=== PATIENT | female | born 1980 | race Caucasian/White ===

== ENCOUNTER → 2018-02-08 08:47 | Outpatient (CLI) | payer OTHER, SELFPAY ==
--- NOTE | 2018-02-08 09:06 | RAD_ITS ---
STUDY: X-RAY - LEFT KNEE REASON FOR EXAM: Female, 37 years old. [place] pop swelling pain TECHNIQUE: 4 view(s) of the knee. COMPARISON: None. FINDINGS: Normal visualized distal femur. Normal visualized proximal tibia and fibula. Normal proximal tibiofibular articulation. There is mild degenerative arthrosis of the medial femorotibial compartment. There is mild degenerative arthrosis of the lateral femorotibial compartment. There is mild degenerative arthrosis of the patellofemoral articulation. There could be a trace joint effusion. There is no visualized fracture. There is enthesopathic the at the patellar insertion of the quadriceps tendon. The soft tissue structures are unremarkable. RAD/Knee 4 or More Views IMPRESSION: Mild degenerative change. No visualized fracture. Cannot exclude trace effusion. Electronically Signed: Caity Felix MD at 15:58 EDT Tel , Service support ,
== END ==
LOC: LAB 08:52 → RAD 08:53
PROVIDERS: Family Provider Internal Medicine; PCP Internal Medicine; Visit Provider Internal Medicine
DX: M25.562 Pain in left knee (principal)
CPT/HCPCS: 73564

== ENCOUNTER 2018-03-28 16:30 | Outpatient (RCR) | payer OTHER, SELFPAY ==
--- NOTE | 2018-03-04 12:48 | HP.PTEVAL ---
Patient's Visit Information ILA CA is a 37 year old F referred to Physical Therapy by Rosalva Styles with a diagnosis of LEFT MEDIAL KNEE PAIN. Date of Evaluation: 02/28/18 Physical Therapist: Keri Mack - Visit Plan Frequency: 2-3x /Week Duration: 4-6 Weeks Plan: LEFT KNEE US, ROM, STRETCHING AND STRENGTHEING TO HELP MEET SET GOALS. - Subjective Subjective: Work/Leisure: [employer]. Disability: NO. Present symptoms: INSIDE OF LEFT KNEE. NO NUMBNESS OR TINGLING. IT POPS. Present since: MID JANUARY 2018. Pain Scale: WORST 5/10, LEAST 1/10. Currently: 10. Commenced as a result of: GETTING INTO CAR AND KNEE POPPED AND IT HAS BEEN SWOLLEN EVER SINCE. Symptoms at onset: SAME. Worse: BEING ON FEET MORE SINCE STARTED BACK TO WORK FEELING PRESSURE AND TENSION IN IT. PROLONGED SITTING. STEPS. POPPING IS RANDOM AND IT ISN'T POPPING MUCH IT WAS. THE SWELLING HAS NEVER GONE DOWN. GETTING DOWN ON KNEES. Better: ICE. Disturbed sleep: NO. Previous history/Previous treatment: UNREMARKABLE. Gait: NORMAL NOW. Accidents: NO. Unexplained weight loss: NO. Imaging: LEFT KNEE X-RAY SHOWING SOME INFLAMMATION AND MILD DEGENERATIVE ARTHRITIS. FINDINGS: Normal visualized distal femur. Normal visualized proximal tibia and. fibula. Normal proximal tibiofibular articulation. There is mild degenerative arthrosis of the medial femorotibial. compartment. There is mild degenerative arthrosis of the lateral. femorotibial compartment. There is mild degenerative arthrosis of the. patellofemoral articulation. There could be a trace joint effusion. There. is no visualized fracture. There is enthesopathic the at the patellar. insertion of the quadriceps tendon. The soft tissue structures are unremarkable. RAD/Knee 4 or More Views. IMPRESSION: Mild degenerative change. No visualized fracture. Cannot exclude trace. effusion. MRI HAS BEEN ORDERED. PMH: BLOOD CLOTTING DISORDER - ANTIPHOSPHOLIPID SYNDROME. OVER-ACTIVE THYROID, ACID REFLUX. ANXIETY. FATTY LIVER DZ. IBS - Objective Sitting/Standing Posture: NATE GENU VALGUS. Other Observations: INDEP GAIT INTO PT WITHOUT ANY ASSISTIVE DEVICES OR GROSS DEVIATIONS NOTED. MODERATE LEFT KNEE EDEMA COMPARED TO RIGHT. Motor deficit: NATE LE STRENGTH GROSSLY 5/5 WITH MMT'ING EXCEPT NATE HIPS 4/5 AND LEFT KNEE EXT 4-/5 AND FLEX 4-/5. Sensory deficit: DECREASED LIGHT TOUCH SENSATION OF LEFT ANTERIOR AND MEDIAL KNEE. ROM deficit: 0-122 DEG RIGHT KNEE AND 0-115 LEFT KNEE. Core strength: POOR. Palpation: LEFT MEDIAL KNEE TENDERNESS AND TENDERNESS OVER PATELLAR TENDON. - Goals Goal 1:: DECREASE C/O LEFT KNEE PAIN Goal Time Frame: 4-6 Weeks Goal 2:: DECREASE LEFT KNEE SWELLING Goal Time Frame: 4-6 Weeks Goal 3:: IMPROVE STANDING, WALKING, STAIR CLIMBING AND KNEE FLEX/SQUATTING FUNCTION Goal Time Frame: 4-6 Weeks Goal 4:: INDEP HEP Goal Time Frame: 4-6 Weeks - Rehabilitation Potential Rehabilitation Potential: Fair - Anticipated Interventions Patient/Client Instruction: Educate patient on: Condition, Plan of Care, Risk Factors, Benefits of Fitness Program For the Purpose of:: To improve self management Therapeutic Exercise to Include: Strength training, Flexibilty training, Passive ROM, Active ROM, Dynamic Lumbar Stabilization For the Purpose of:: To decrease pain, To increase ROM, To improve muscle performance and motor function, To increase tolerance to activity/condition/position, To improve ability of physical actions for home/community/work/leisure Cryotherapy (ice pack, ice massage): Yes Ultrasound (thermal/non thermal): Yes For the Purpose of:: To decrease pain, To decrease swelling/inflammation, To increase ROM, To improve nutrient delivery to tissue Thank you for the opportunity to evaluate your patient. For Medicare and Medicare HMO plans, please review the plan of care and approve it. It will need to be FAXED BACK to us at [phone] for Medicare purposes. Please let me know if there are questions or concerns regarding this plan of care. Physician Signature: Date:
--- NOTE | 2018-03-28 17:05 | HP.PTDCSUM_ITS ---
HP - PT D/C Summary It has been my pleasure to treat ILA CA under orders from Rosalva Styles , for the diagnosis of LEFT MEDIAL KNEE PAIN for a total of 12 visit(s). Discharge Date: Please see the following information for a summary of their discharge status. - Subjective Subjective: PATIENT REPORTS IT SEEMS LIKE SHE CAN DO MORE THINGS WITH LESS SQUEEZING AND PRESSURE IN HER KNEE BUT IT STILL POPS. SHE REPORTS IT USE TO FEEL MORE LIKE HER KNEE WASN'T FITTING IN PLACE WELL IT IS NOW BUT THE POPPING AND SWELLING CONTINUES. PATIENT REPORTS SHE HAS BEEN ABLE TO TOLERATE THE EX HERE IN PT AND AT HOME IT JUST HASN'T HELPED IT GET BETTER SHE HAD HOPED. - Pain medial L knee Pain Intensity (Out of 10): 2 - Overall Improvement % Improvement: 25 - Objective Objective/Function: PATIENT HAS HAD ONLY MINIMAL IMPROVEMENT IN PT WITH LEFT HIP STRENGTH IMPROVIING AND GETTING A FEW MORE DEGREES OF BEND IN HER KNEE BUT HER FUNCTION IS STILL SIGNIFICANTLY LIMITED. UPON EXAM TODAY PATIENT DEMO'S INDEP GAIT INTO PT WITHOUT ANY ASSISTIVE DEVICES OR GROSS DEVIATIONS NOTED. MILD LEFT KNEE EDEMA COMPARED TO RIGHT WITH INCREASED TISSUE TEMP OF LEFT MEDIAL KNEE COMPARED TO OTHER KNEE. Motor deficit: NATE LE STRENGTH GROSSLY 5/ 5 WITH MMT'ING EXCEPT LEFT KNEE EXT 4/5 AND FLEX 4-/5. Sensory deficit: DECREASED LIGHT TOUCH SENSATION OF LEFT ANTERIOR AND MEDIAL KNEE. ROM deficit: 0-122 DEG RIGHT KNEE AND 0-119 LEFT KNEE. Core strength: POOR. Palpation: LEFT MEDIAL KNEE TENDERNESS AND TENDERNESS OVER PATELLAR TENDON. NO SIGNIFICANT CHANGE IN LEFS SCORE WITH CHANGE FROMO 53 TO 55 - Goals Goal 1:: DECREASE C/O LEFT KNEE PAIN Goal Progress: Not Progressing Goal 2:: DECREASE LEFT KNEE SWELLING Goal Progress: Progressing Goal 3:: IMPROVE STANDING, WALKING, STAIR CLIMBING AND KNEE FLEX/SQUATTING FUNCTION Goal Progress: Not Progressing Goal 4:: INDEP HEP Goal Progress: Progressing - Plan Plan: D/C DUE TO LACK OF MORE PROGRESS WITH PT AT THIS TIME. - D/C Information If there are questions or concerns regarding this patient's physical therapy, please feel free to call me at [phone]. Thank you for the referral of this patient. Sincerely, Keri Mack
== END 2018-03-28 19:00 | disposition home or self-care (01) ==
LOC: PT 16:30
PROVIDERS: Family Provider Internal Medicine; PCP Internal Medicine; Visit Provider Internal Medicine
DX: M25.562 Pain in left knee (principal)
CPT/HCPCS: 97035; 97110; 97162; 97164

== ENCOUNTER → 2018-04-03 16:24 | Outpatient (CLI) | payer OTHER, SELFPAY ==
--- NOTE | 2018-04-03 16:39 | MRI_ITS ---
STUDY: MRI LEFT KNEE REASON FOR EXAM: Medial knee pain, popping, swelling, no specific injury. TECHNIQUE: Standardized fat and water weighted pulse sequences were obtained in all 3 orthogonal planes. COMPARISON: Radiographs 02/08/2018. FINDINGS: Normal medial meniscus. Normal hyaline cartilage of the medial femorotibial compartment. Normal medial femoral condyle and tibial plateau. Normal medial collateral ligamentous complex (MCL). Normal distal semimembranosus, gracilis and semitendinosus tendons. Normal lateral meniscus. Normal hyaline cartilage of the lateral femorotibial compartment. Normal lateral femoral condyle and tibial plateau. Normal proximal tibiofibular articulation. Normal lateral collateral (fibular) ligament. Normal popliteus tendon. Normal biceps femoris tendon. Normal anterior cruciate ligament (ACL). Normal posterior cruciate ligament (PCL). Normal congruent patellofemoral articulation. There is low-grade chondromalacia of the lateral patellar facet (T2 axial image 10). Normal medial and lateral patellar retinaculum. Normal quadriceps tendon. Normal patellar tendon. Normal Hoffa's fat pad. There is a very small joint effusion. There is mild edema in the anterior subcutis adipose space. There is a small enchondroma in the distal femoral metaphysis (T2 sagittal image 10) measuring 0.5 cm in length. MRI/Lower Ext Joint Only (Routine) IMPRESSION: Low-grade chondromalacia patellae. Small joint effusion. Small enchondroma in the distal femur. No demonstrated meniscal or ligamentous injury. Electronically Signed: Laurent Amos MD at 11:33 EDT Tel , Service support ,
== END ==
PROVIDERS: Family Provider Internal Medicine; PCP Internal Medicine; Referring Provider Internal Medicine; Visit Provider Internal Medicine
DX: M25.562 Pain in left knee (principal)
CPT/HCPCS: 73721

== ENCOUNTER → 2018-04-05 09:31 | Outpatient (CLI) | payer OTHER, SELFPAY ==
[2018-04-05 10:07] LABS: Mean Corp Hgb Conc 34.1 g/gl (32-36); Mean Corpuscular Hgb 29.7 pg (27.0-32.0); Platelet Count 247 K/mm3 (150-450); RBC Distribution Width CV 12.8 % (11.6-14.6); RBC Distribution Width SD 39.9 fl (35.1-43.9); Red Blood Count 4.71 M/mm3 (4.2-5.4); White Blood Count 10.1 K/mm3 (4.4-11.0)
[2018-04-05 10:08] LABS: Scan Indicated on CBC? Y/N NO
[2018-04-05 10:42] LABS: ALB/GLOB Ratio 0.8 RATIO (0.9-2.4); AST(SGOT) 23 U/L (15-37); Alanine Aminotransfer ALT/SGPT 40 U/L (13-56); Albumin, Serum 3.3 g/dL (3.2-5.0); Alkaline Phosphatase 85 U/L (45-117); Anion Gap 10 (5-15); BUN 12 mg/dL (7-18); BUN/Creat Ratio 13.7 RATIO (10-20); Calcium,Total 8.9 mg/dL (8.5-10.1); Chloride 103 mmol/L (98-107); Creatinine, Serum 0.87 mg/dL (0.55-1.02); EST Glomerular Filtration Rate 77 mL/min (>60); Est Glom Filt Rate - Afr Amer 93 mL/min (>60); Globulin 3.9 g/dL (2.2-4.2); Glucose 96 mg/dL (74-106); Potassium 4.2 mmol/L (3.5-5.1); Protein, Total 7.2 g/dL (6.4-8.2); Sodium Level 140 mmol/L (136-145); T4 Free Direct 1.04 ng/dL (0.76-1.46); Thyroid Stim Hormone (TSH) 2.11 uIU/mL (0.358-3.74)
[2018-04-05 12:56] LABS: Vitamin D,25 Hydroxy 30.2 ng/mL (29.95-100.01)
[2018-04-08 20:07] LABS: Beef <0.10 kU/L (Class 0); Corn <0.10 kU/L (Class 0); Egg, Whole <0.10 kU/L (Class 0); Milk (Cow) <0.10 kU/L (Class 0); Peanut <0.10 kU/L (Class 0); Pork <0.10 kU/L (Class 0); Soybean <0.10 kU/L (Class 0); Wheat <0.10 kU/L (Class 0)
[2018-04-09 11:55] LABS: Chocolate <0.10 kU/L (Class 0)
== END ==
PROVIDERS: Family Provider Internal Medicine; PCP Internal Medicine; Referring Provider Internal Medicine; Visit Provider Internal Medicine
DX: R76.8 Other specified abnormal immunological findings in serum (principal); E55.9 Vitamin D deficiency, unspecified; R94.6 Abnormal results of thyroid function studies; Z91.018 Allergy to other foods
CPT/HCPCS: 36415; 80053; 82306; 84439; 84443; 85027; 86003; 86005

== ENCOUNTER 2018-06-20 05:35 | Day surgery (SDC) | payer OTHER, SELFPAY ==
[2018-06-20 06:11] VITALS: BP 151/98; PULSE 83; RESP 16; TEMP 36.7; O2SAT 97; BMI 50.1
[2018-06-20 06:20] LABS: Internal QC Validated? YES +Cl - CLEAR BKGD; Pregnancy, Urine Negative Negative
[2018-06-20] MEDS: Cefazolin 2 GM in 0.9% Normal Saline 100 ML IV (07:15)
--- NOTE | 2018-06-20 07:30 | PCM.DC.ORTHO ---
Discharge Diet: No Restrictions - wbat left leg, remove dressings in 4 days and apply bandaids to incision sites, may get incision wet at that time, ankle pumps, ice, elevate toes above nose, start lovenox tonight, call with pain, numbness, tingling, calf pain or other concerns Discharge Activity: May Not Drive May shower in (days): 1 Ice area for (Minutes): 20 - Every hour while awake. Weight Bearing Status: Weight bearing as tolerated Keep extremity elevated above heart level: Operative Extremity Call your doctor if your incision/area has: Continuous Slow Oozing, Sudden Increased Bleeding, Increased Pain/ Swelling, Increased Redness, Foul Smelling Discharge Call your doctor if you observe: Fever of 101 or Higher, Coldness, Increased Pain, Numbness or Tingling, Change in Color, Calf discomfort Allergies/Adverse Reactions: Allergies amoxicillin Allergy (Verified 05/21/18 13:35) Rash tobramycin Allergy (Verified 05/21/18 13:35) Other chlorhexidine Adverse Reaction (Verified 06/20/18 06:28) Rash Medications to take at Discharge Cholecalciferol (VIT D3) [Vitamin D] 2,000 unit PO DAILY 02/01/15 Sertraline HCl [Zoloft] 100 mg PO DAILY 02/01/15 Spironolactone [Aldactone] 200 mg PO DAILY 02/01/15 proMETHazine tablet [Phenergan] 25 mg PO Q6H PRN PRN #10 tablet 02/01/15 Aspirin E.C. [Ecotrin] 81 mg PO DAILY@0800 02/02/15 Hydrocodone Bitart/Apap 5-325 [[place] 5/325] 1 - 2 tablet PO Q4H PRN PRN #12 tablet 11/17/15 Ondansetron [Zofran Odt] 4 mg PO Q8H PRN PRN #10 tablet 11/17/15 enoxaparin 40 mg/0.4 mL subcutaneous syringe 40 mg SC DAILY PRN #4 ml 05/13/18 Hyoscyamine [Levsinex] 0.375 mg PO Q12 PRN 05/21/18 Inulin [Fiber Gummies] 4 gm PO DAILY 05/21/18 L.acidoph,Paracasei, B.lactis [Probiotic] 1 each PO DAILY 05/21/18 Norgestimate-Ethinyl Estradiol [Previfem Tablet] 1 each PO DAILY 05/21/18 Ranitidine [Zantac] 150 mg PO BID 05/21/18 Hydrocodone Bitart/Apap 5-325 [[place] 5MG-325MG] 1 - 2 tablet PO Q6H PRN PRN 5 Days #40 tablet 06/20/18 The following prescriptions were given: Hydrocodone Bitart/Apap 5-325 [[place] 5MG-325MG] 1 - 2 tablet PO Q6H PRN PRN 5 Days #40 tablet PRN Reason: Pain Primary Care Physician: Rosalva Styles MD [Primary Care Provider] - Test Results: Test results from this visit will be discussed in further detail at your follow-up appointment, if applicable. Please Follow Up With: Ofe Jay, DO - [phone]
--- NOTE | 2018-06-20 07:31 | OP.PCM_ITS ---
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 She failed conservative treatment MRI of questionable for lateral meniscus tear possible medial meniscus tear as well and some thinning of her cartilage. Due to the instability and locking discussed treatment options with patient. Patient like to proceed with left knee arthroscopy. Risks benefits and alternatives surgery discussed with patient. Risks including but not limited to blood loss, blood clot, infection, neurovascular injury, failure procedure, loss of life and loss of limb. Patient is aware would like to proceed with left knee arthroscopy repair is indicated. These of the patient also has antiphospholipid antibody she is a higher risk for blood clots this was discussed in detail with family and PCP patient will start Lovenox this evening. Operative note Patient seen and examined preoperative holding area. Left knee was marked. Patient is brought to the operating room placed supine on the operating table. Sign, anesthesia, antibiotics were administered. Left knee was prepped and [place] ped in usual sterile fashion with tourniquet on her upper thigh. All bony prominences well-padded SCDs placed on her contralateral limb. We marked out our bony landmarks for anterior lateral anterior and anterior medial portal placement. The left leg was then elevated exsanguinated tourniquet was raised her pressure of 300 torr based on preoperative blood pressure. Timeout was performed. We then created her anterior lateral portal with an 11 blade. We began our diagnostic arthroscopy. There is grade 2 fibrillated changes on the inferior pole of her patella throughout. Her trochlea was intact. We then moved to the medial femoral medial joint line. Created an anterior medial portal under direct visualization. We able to debride back some of the synovium with a shaver for better visualization. We inserted a probe her medial meniscus was intact and stable stable to probing. She had some grade 2 changes of her medial femoral condyle on the more lateral aspect that was being abraded by her thickened medial plica that was resected. This is actually was causing some fibrillated some erosion of her nonweightbearing aspect for medial femoral condyle. ACL PCL were present within the notch. We then moved to the lateral joint line there is little bit of synovitis in the anterior lateral recess that was also resected back for better better visualization. She had a posterior horn lateral meniscus tear that was gently debrided back to a stable rim. We and she also had some grade 3 changes of her lateral tibial plateau and some unstable cartilage pieces that were debrided back gently with a shaver. We then reinserted a probe to ensure that she had good stable lateral meniscus remaining which she did have. We then gently debrided the inferior pole of the patella as she had some quite thickened and loose cartilage pieces at the inferior pole especially more laterally. The knee was then irrigated with copious amounts of sterile saline. The portals were closed with interrupted 4-0 nylon stitches sterile dressings were applied the tourniquet was deflated for total working time of 22 minutes. Patient tolerated procedure well there are no complication transferred recovery room in stable condition. Postoperative note Weight-bear as tolerated left leg Patient is to be given to family in 2 weeks at postop visit Remove dressings in 4 days apply Band-Aids Start Lovenox tonight This note was generated with [employer] dictation software. It may contain incorrect words, spelling, and punctuation that were not noted in checking the note before signing.
[2018-06-20] MEDS: Mupirocin Ointment 22gm Tube 1 APPLIC (08:00)
[2018-06-20] MEDS: Bupiv/Epi 0.5% Mpf 30 ML Vial (08:02)
[2018-06-20 08:21] VITALS: BP 151/98; BP 162/96; PULSE 87; RESP 16; TEMP 35.9; O2SAT 93
[2018-06-20 08:30] VITALS: BP 151/98; BP 153/90; PULSE 81; RESP 16; O2SAT 95
[2018-06-20 08:45] VITALS: BP 151/98; BP 168/91; PULSE 81; RESP 16; TEMP 36.1; O2SAT 98
[2018-06-20 09:55] VITALS: BP 144/93; BP 151/98; PULSE 83; RESP 16; TEMP 36.8; O2SAT 96
--- OUTSIDE RECORDS SUMMARY | 2018-08-05 17:24 | XMS RPT_ITS | Continuity of Care Document ---
:1980 Author Organization [facility] Address [facility] [address] Phone Care Team Providers Name Role Phone Jensen HARGROVE, Michelle Lenz Unavailable Tavia HARGROVE, Ravinder Unavailable Rico HARGROVE, Sancho Mcdaniel Unavailable Jasmyne Martin Unavailable Ofe Jay Unavailable Yohan HARGROVE, Vi Lenz Unavailable Stefany HARGROVE, Davide Stone Unavailable Dr. Murali Mondragon Unavailable PHILLIP Leigh Unavailable Unavailable Kristine Langley Unavailable Unavailable Unavailable Unavailable Problems Name Dates Details Abnormal lung function test (R94.2, 794.2) Comments: mild obstruction on spirometry and had cold ? allergies no signs and symptoms otherwise long going. some wheezing laugh Status: Active Abnormal thyroid blood test (R94.6, 794.5) Comments: TPO atb postiive. tsh good rightnow and watching labs. Status: Active Acid reflux (K21.9, 530.81) Comments: EGDF 5-16. some inflammation. no nsaids. talk about side effects of PPI. use zantac 75 bid help notice flare daily. can increase Status: Active Allergic to food (Renamed from Food allergy) (Z91.018, V15.05) Status: Active Alopecia (L65.9, 704.00) Comments: androgenic alopeciaSees specialist Dr Xiomy Amaya [facility], last saw 2009, labs done ferritin, zinc, dheas, testosterone, estradiol prolactin progesterone, testosterone little up and look like try avodart Status: Active Amenorrhea (N91.2, 626.0) Comments: on ocp more regular, not have trouble getting . random every 3 mobths not have one. Status: Active KWAN positive (R76.8, 795.79) Comments: all [facility] connect reports rheum nothing. saw vascular surgeon. felt antiphoslipid syndrome, had severe preeclampsia with HELP syndrome, has pos KWAN, elevated CRP and Sed rate. ANCA's neg.Today with headac he extreme fatigue ache pain low grade fever. Dr. anderson 2-16 and repeat ramp manager negative and labs negative. rightn ow no new ss. Status: Active Anal discharge (R19.8, 787.99) Comments: pt not sure where come from on underwear in both areas. ? pru. anui. talk about treatment with tucks and prepH metamucil to have complete movement and irrigate after each BM. handout given Status: Active Antiphospholipid syndrome (D68.61, 289.81) Comments: basby aspirin daily and willnotify any Dr. if have surgery reveiwed with patient [facility] connect note. saw Dr. anderson and negative work for anything other than this. Status: Active Anxiety (F41.9, 300.00) Comments: side effects to viibryd, celexa not work. zoloft helping. doing good now on zoloft. see Dr. martin every so often. mother new kidney, sonstress with his behavior issues. she works [place] the [place] is at and hard for her. she cannot get away. work with aysha and redirecting thought when worry about health. finding more time alone. consider klonopin taking son to do things told to make regular thing. date nightafter had son with severe preeclampsia set off fear 2010. Status: Active BMI 45.0-49.9, adult (Z68.42, V85.42) Comments: we talked about this summer better not have behavioral issue with son at school. will walk with son on scooter. 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 PT help only 25 % nsaids bother stomach. to [facility] Status: Active Current nonsmoker (Renamed from Current non-smoker) (Z78.9, V49.89) Status: Active Deliveries (Parity) Comments: 1 Status: Active Encounter for general adult medical examination with abnormal findings (Z00.01, V70.0) Comments: 06/03/17 [facility] exam, last pap 05/2017 good, colonscopy 2016, never had mammogram, already had flu vaccine dnetist 6-17 go every 6months. Status: Active Family history of breast cancer (Z80.3, V16.3) Comments: maternal aunt 50 and same side pancreatic cancer in another aunt. in her 40's would consider genetic counseling and testing. 3D mammo by 40 Status: Active Family history of heart disease (Z82.49, V17.49) Comments: father 50's not smoker but secand hand smoke. optimize her risk factors Status: Active Fatigue (R53.83, 780.79) Comments: see above seeing goske. same to worse because going into school. sleep restless. 5 yo son waken at night few times a night. will see how do when get back on track exercise and diet. Status: Active Fatty liver (K76.0, 571.8) Comments: seen on CT scan and seeing Dr. Mayer hga1c and 24 hour urine cortisol okay. liver tests good. liver specialist 03-26 Dr. bal ? started with the HELLP did US elast. and show 3-4 will have liver bi opsy negative. no cirrhosis. recommend porbiotic with new studies on gut-liver bacteria link. on a good one through [facility], on probiotics lfts good Status: Active H/O leukocytosis (Z86.2, V12.3) Comments: estr good work up being down. ? bile duct issue because with abd and GB but liver normal willrec goes down after IV fliuds related to abd pain episodes Status: Active HELLP syndrome, antepartum (O14.20, 642.53) Comments: [address] Josh Lemus in vasuclar at [facility] and Dr. Jessica jama at [facility] severe preeclampsia Status: Active Hives (L50.9, 708.9) Status: Active Hyperlipidemia, unspecified hyperlipidemia type (E78.5, 272.4) Comments: better now on more whole grains and nuts Status: Active Irritable bowel syndrome with diarrhea (K58.0, 564.1) Comments: increase zoloft and increase fiber. no sugar alcohols. not link to foods. not sure mild. link to anxiety still 2-3 times a day. need to get down because teachera nd cannot leave class room. check fo od allergies will get labs. use levisin as need. if not get better wtih increae fiber increase zoloft and levsin did help some. school started...stress up. think related not able to walk with knee to decompress. Status: Active Left medial knee pain (M25.562, 719.46) Comments: ? strain MCL or medical meniscus. no side strick injury. will rest ice elevated leg will get knne sleeves. if not better in 2 weeks then xray, injection consider PT if stillinstabiity and poppig consider MRI xray some tendon issue on the top of patella. Status: Active Nonsmoker (Z78.9, V49.89) Status: Active Obesity, unspecified (E66.9, 278.00) Comments: ws eating well before sick 12- 16 stress wtih son's behavior. stress eating. willstart withthe exercise for stress release then diet to follow.n when walk not feel need at much to [facility]. talk about l oggong but OCd went crazy. doing more whole grains. Status: Active OCD (obsessive compulsive disorder) (F42.9, 300.3) Comments: stable will not check BP because then obsess. aysha has he list things want to accomplish each day Status: Active Plantar fasciitis, bilateral (M72.2, 728.71) Status: Active Pregnancies () Comments: 1 Status: Active Proteinuria (R80.9, 791.0) Comments: mother with Wegoners on dialysis right now good Status: Active Rash (R21, 782.1) Comments: look like ringworm in new area. diflucan and cream work on old area. she is not treating dog too. Status: Active Restless sleeper (G47.9, 780.50) Comments: went over sleep hygiene talk about sleep study. son with ADD and up in night for log periods. not able to use TCA to sedate. need to work to get son asleep. Status: Active Sinusitis, bacterial (J32.9, 473.9) Status: Active Stress reaction (F43.0, 308.9) Comments: stable son getting some test and ADD and sleep issue so both up at night. seeing Abigail martin. on zoloft. will talk to her about increasing dose ? should do she worry about getting too f atigued. will do yoga and exercises. Status: Active Tinea corporis (B35.4, 110.5) Status: Active Vaginal discharge (N89.8, 623.5) Comments: looks normal willsend testing. Status: Active Vitamin D deficiency, unspecified (E55.9, 268.9) Comments: goo drepamelaly on 2000 units a day Status: Active Well woman exam (Renamed from Encounter for well woman exam) (Z01.419, V72.31) Comments: abnormal pap in 2008 did biopsy and repeat pap negative and cleared up. Status: Active Medications Name Dates Details Aldactone 100 MG Oral Tablet 2 Tablet qd for 0 days Quantity: 180 {Tablet} Refills: 3 Ordered:16-Oct-2017 Fast DO, Norah A Start : 16-Oct-2017 Active Aldactone 100 MG Oral Tablet 2 Tablet qd for 0 days Quantity: 20 {Tablet} Refills: 0 Ordered:16-Oct-2017 Fast DO, Norah A Start : 16-Oct-2017 Active Comments:enogh to last until mail order arrives ASPIRIN, 81MG (Oral Tablet) 1 qd (81 MG) Active Bentyl 10 MG Oral Capsule 1 (one) Capsule Capsule tid prn for 0 days Quantity: 20 {Capsule} Refills: 0 Ordered:23-Feb-2016 Jensen HARGROVE, Michelle Medina MD, Michelle Lenz Start : 23-Feb-2016 Active Comments:twenty Creon 44500 UNIT Oral Capsule Delayed Release Particles 1 (one) Unit 2 with meals and 1 with snacks for 0 days Quantity: 30 {Capsule} Refills: 0 Ordered:11-Apr-2018 Michelle Reaves MD, MD, Dana M Start : 11-Apr-2018 Active Levbid 0.375 MG Oral Tablet Extended Release 12 Hour 1 (one) Tablet bid for 0 days Quantity: 60 {Tablet} Refills: 3 Ordered:11-Apr-2018 Michelle Reaves MD, MD, Dana M Start : 11-Apr-2018 Active Levsin/SL 0.125 MG Sublingual Tablet Sublingual 1 (one) Tablet every 6 hours prn diarrhea IBS for 0 days Quantity: 30 {Tablet} Refills: 1 Ordered:11-Apr-2018 Michelle Reaves MD, MD, Dana M Start : 11-Apr-2018 Active Lotrisone 1-0.05 % External Cream 1 (one) Application Application bid to affected areas for 0 days Quantity: 1 {Tube} Refills: 0 Ordered:24-Jan-2018 PHILLIP Leigh Start : 17-Dec-2017 Active Previfem 0.25-35 MG-MCG Oral Tablet 1 Tablet qd for 0 days Quantity: 3 {Package} Refills: 3 Ordered:31-Mar-2018 Michelle Reaves MD, MD, Dana M Start : 31-Mar-2018 Active Probiotic 250 MG Oral Capsule (250 MG) Active VITAMIN D3, 1000UNIT (Oral Capsule) 2 (two) Capsule qd for 0 days Quantity: 60 {Capsule} Refills: 0 Ordered:01-Mar-2014 Michelle Reaves MD, MD, Dana M Start : 01-Mar-2014 Active Zantac 150 MG Oral Tablet 1 (one) Tablet bid for 0 days Quantity: 180 {Tablet} Refills: 3 Ordered:26-Jul-2017 Michelle Reaves MD, MD, Dana M Start : 26-Jul-2017 Active Zoloft 100 MG Oral Tablet 1 (one) Tablet qd for 0 days Quantity: 90 {Tablet} Refills: 3 Ordered:24-Jan-2018 Michelle Reaves MD, MD, Dana M Start : 24-Jan-2018 Active Ativan 0.5 MG Oral Tablet 1 Tablet q6h prn for 0 days Quantity: 20 {Tablet} Refills: 0 Ordered:28-Jun-2016 PHILLIP Leigh Start : 25-Jun-2013 End : 28-Jun-2016 Inactive Comments:twenty AUGMENTIN, 875-125MG (Oral Tablet) 1 Tablet BID for 0 days Quantity: 20 {Tablet} Refills: 0 Ordered:29-Nov-2010 Indu Mai LPN Start : 17-Aug-2010 End : 29-Nov-2010 Inactive MASHA, 0.35MG (Oral Tablet) 1 Tablet qd for 30 days Refills: 0 Ordered:30-Apr-2011 PHILLIP Leigh Start : 06-Dec-2010 End : 30-Apr-2011 Inactive Comments:Dr Ysabel NAYAK (Oral Tablet) 1 qd for 0 days Refills: 0 Ordered:17-Aug-2010 Indu Mai LPN End : 17-Aug-2010 Inactive Cipro 500 MG Oral Tablet 1 (one) Tablet bid for 7 days Quantity: 14 {Tablet} Refills: 0 Ordered:26-Jul-2017 Michelle Reaves MD, MD, Michelle Lenz Start : 05-Jul-2017 End : 12-Jul-2017 Inactive Comments:ordered by Dr. Jarrell in ER CLARITHROMYCIN, 500MG (Oral Tablet) 1 (one) Tablet bid for 0 days Quantity: 14 {Tablet} Refills: 0 Ordered:07-Jun-2014 PHILLIP Leigh Start : 31-Mar-2014 End : 07-Jun-2014 Inactive Cleocin 300 MG Oral Capsule 1 (one) Capsule QID for 7 days Quantity: 28 {Capsule} Refills: 0 Ordered:26-Jul-2017 Jensen HARGROVE, Michelle Medina MD, Michelle Lenz Start : 05-Jul-2017 End : 12-Jul-2017 Inactive Comments:prescribed by Dr. Pro in ER Clotrimazole 10 MG Mouth/Throat Lozenge 1 (one) Lozenge 5 x daily for 10 days Quantity: 50 {Lozenge} Refills: 0 Ordered:18-Jun-2016 PHILLIP Leigh Start : 11-Jun-2016 End : 18-Jun-2016 Inactive CLOTRIMAZOLE, 10MG (Mouth/Throat Lisa) 1 (one) Lisa Lisa 5x daily for 10 days Quantity: 50 {Lisa} Refills: 0 Ordered:31-Aug-2015 Sandra Murdock LPN Start : 31-Aug-2015 End : 10-Sep-2015 Inactive [facility] Omeprazole 20.6 (20 Base) MG Oral Capsule Delayed Release 1 (one) Capsule DR Capsule DR qd for 0 days Quantity: 30 {Capsule} Refills: 3 Ordered:05-Apr-2016 PHILLIP Leigh Start : 27-Jan-2016 End : 05-Apr-2016 Inactive Diflucan 150 MG Oral Tablet 1 (one) Tablet Tablet in am for 2 day for 0 days Quantity: 2 {Tablet} Refills: 0 Ordered:18-Jun-2016 PHILLIP Leigh Start : 08-Jun-2016 End : 18-Jun-2016 Inactive Diflucan 200 MG Oral Tablet 1 (one) Tablet once PO then repeat in one week for 0 days Quantity: 2 {Tablet} Refills: 0 Ordered:07-Feb-2018 PHILLIP Leigh Start : 24-Jan-2018 End : 07-Feb-2018 Inactive ERGOCALCIFEROL, 54415DSDS (Oral Capsule) 1 Capsule twice weekly for 0 days Quantity: 24 {Capsule} Refills: 0 Ordered:04-Jul-2011 Long Kathy MIRANDA Start : 19-Mar-2011 End : 04-Jul-2011 Inactive FLUCONAZOLE, 150MG (Oral Tablet) 1 (one) Tablet qd for 0 days Quantity: 10 {Tablet} Refills: 0 Ordered:07-Jun-2014 PHILLIP Leigh Start : 31-Mar-2014 End : 07-Jun-2014 Inactive MARGARET, 0.35MG (Oral Tablet) 1 qd as directed (0.35 MG) Inactive Hydrocodone-Acetaminophen 5-325 MG Oral Tablet 1 (one) Tablet Tablet q 6 hours prn for 0 days Quantity: 30 {Tablet} Refills: 0 Ordered:23-Feb-2016 PHILLIP Leigh Start : 18-Nov-2015 End : 23-Feb-2016 Inactive Ketoconazole 2 % External Cream 1 (one) Cream bid for 0 days Quantity: 1 {Each} Refills: 0 Ordered:08-Jun-2016 PHILLIP Leigh Start : 04-Jun-2016 End : 08-Jun-2016 Inactive Levaquin 500 MG Oral Tablet 1 (one) Tablet Tablet daily for 10 days Quantity: 10 {Tablet} Refills: 0 Ordered:16-Nov-2016 Jensen HARGROVE, Michelle Medina MD, Michelle Lenz Start : 16-Nov-2016 End : 26-Nov-2016 Inactive Lidocaine Viscous 2 % Mouth/Throat Solution uad Solution 10 ml q 3 hours swish and spit prn for 0 days Quantity: 100 {Milliliter} Refills: 0 Ordered:08-Jun-2016 PHILLIP Leigh Start : 05-Jun-2016 End : 08-Jun-2016 Inactive NEXIUM, 40MG (Oral Capsule Delayed Release) [address] Daily for 0 days Quantity: 30 {Capsule_DR} Refills: 0 Ordered:30-Apr-2011 PHILLIP Leigh Start : 02-Feb-2011 End : 30-Apr-2011 Inactive Nystatin 757612 UNIT/GM External Powder 1 (one) Powder Powder bid to affected skin for 0 days Quantity: 1 {Bottle} Refills: 1 Ordered:08-Jun-2016 PHILLIP Leigh Start : 29-May-2016 End : 08-Jun-2016 Inactive OCELLA, 3-0.03MG (Oral Tablet) 1 (one) Tablet qd for 0 days Quantity: 30 {Tablet} Refills: 0 Ordered:11-Sep-2011 PHILLIP Leigh Start : 27-Aug-2011 End : 11-Sep-2011 Inactive OMEPRAZOLE, 20MG (Oral Tablet Delayed Release) [address] daily for 0 days Quantity: 30 {Tablet_DR} Refills: 0 Ordered:15-Oct-2011 PHILLIP Leigh Start : 11-Sep-2011 End : 15-Oct-2011 Inactive Ondansetron HCl 4 MG Oral Tablet 1 (one) Tablet Tablet q 6-8 hours prn for 0 days Quantity: 20 {Tablet} Refills: 0 Ordered:23-Feb-2016 PHILLIP Leigh Start : 18-Nov-2015 End : 23-Feb-2016 Inactive PrednisoLONE Sodium Phosphate 15 MG/5ML Oral Solution 1 (one) Solution 10 ml swish and spit every 2 hours prn for 0 days Quantity: 100 {Milliliter} Refills: 0 Ordered:08-Jun-2016 PHILLIP Leigh Start : 05-Jun-2016 End : 08-Jun-2016 Inactive Comments:mix with 1/2 and 1/2 with lidocaine PredniSONE 10 MG Oral Tablet 3 (three) Tablet pills for 3 days 2 pills for 3 days then 1 pill for 3 days for 0 days Quantity: 18 {Tablet} Refills: 0 Ordered:09-May-2017 PHILLIP Leigh Start : 19-Feb-2017 End : 09-May-2017 Inactive Comments:take with food apurva PREDNISONE, 20MG (Oral Tablet) 1 (one) Tablet 1 daily for 5 daysthen 1/2 for 5 days for 10 days Quantity: 10 {Tablet} Refills: 0 Ordered:31-May-2015 Jensen HARGROVE, Michelle Medina MD, Michelle Lenz Start : 31-May-2015 End : 10-Jun-2015 Inactive VITAMINS, 0.8MG (Oral Tablet) 1 (one) Tablet daily for 0 days Quantity: 30 {Tablet} Refills: 0 Ordered:11-Sep-2011 PHILLIP Leigh Start : 06-Apr-2010 End : 11-Sep-2011 Inactive PROMETHAZINE HCL, 25MG (Oral Tablet) 1 (one) Tablet Tablet q8hrs prn nausea for 0 days Quantity: 30 {Tablet} Refills: 0 Ordered:18-Nov-2015 PHILLIP Leigh Start : 31-Aug-2015 End : 18-Nov-2015 Inactive SLOW FE, 160 (50 Fe)MG (Oral Tablet Extended Release) 1 3 times a week for 0 days Refills: 0 Ordered:17-Aug-2010 Indu Mai LPN End : 17-Aug-2010 Inactive SPRINTEC 28, 0.25-35MG-MCG (Oral Tablet) uad qd (0.25-35 MG-MCG) Inactive VIIBRYD, 20MG (Oral Tablet) 1 Tablet qd for 0 days Quantity: 30 {Tablet(s)} Refills: 0 Ordered:18-Sep-2013 PHILLIP Leigh Start : 06-Jul-2013 End : 18-Sep-2013 Inactive VIIBRYD, 40MG (Oral Tablet) 1 Tablet daily for 0 days Quantity: 30 {Tablet} Refills: 0 Ordered:26-Jun-2013 Kathy Sesay LPN Start : 02-Jun-2013 End : 26-Jun-2013 Inactive IVY 28, 3-0.03MG (Oral Tablet) 1 qd for 0 days Refills: 0 Ordered:06-Apr-2010 Lazara Ruano LPNactive Zantac 75 75 MG Oral Tablet 1 (one) Tablet Tablet 1-2 twice a day for 0 days Quantity: 60 {Tablet} Refills: 0 Ordered:04-Jun-2016 PHILLIP Leigh Start : 17-Apr-2016 End : 04-Jun-2016 Inactive CELEXA, 40MG (Oral Tablet) 1 Tablet daily for 0 days Quantity: 90 {Tablet} Refills: 2 Ordered:02-Jun-2013 Jensen HARGROVE, Michelle Mcdaniels MD Start : 02-Jun-2013 End : 02-Jun-2013 Discontinued FLONASE, 50MCG/ACT (Nasal Suspension) 2 (two) Puff Puff daily for 0 days Quantity: 1 {Bottle} Refills: 0 Ordered:07-Jul-2014 PHILLIP Leigh Start : 07-Jul-2014 End : 23-Feb-2016 Discontinued Comments:This order discontinued per [facility]. METHYLDOPA, 250MG (Oral Tablet) 1 Tablet three times daily for 0 days Quantity: 180 {Tablet} Refills: 3 Ordered:17-Aug-2011 Michelle Reaves MD, MD, Dana M Start : 17-Aug-2011 End : 17-Aug-2011 Discontinued Allergies and Adverse Reactions Name Dates Details No Known Allergies (Allergy) Onset: 31-Mar-2014 Status: Inactive Penicillins (Allergy) Status: Active Comments: rash Tobramycin *Aminoglycosides (Allergy) Status: Active Past Medical History Name Dates Details Abdominal pain (R10.9, 789.00) Comments: periumbilical, diminshed bowel sounds check flat plate of abdomen was negative bilirubin in urine on ua slight improvementhas had cholecystectomy Status: Inactive as of 12-Sep-2015 Abdominal pain, acute (R10.9, 789.00) Comments: [facility] specialist. see Dr. mayer. order EGD, MR enterography, celiac serology, did hpylori atb. did promethuis ibs test. bentyl help keep on add fiber. not related to menses. liver normal not think needs MRCP. if continue with epsidoes of severe pain then to surgeon.over last 5 months had nausea vomiting mid abd pain. 2 episodes of diarrhea. fevers elevated WBC. GB out - had intense pain then. colonscopy - good. 2 CT scan 07-23 and 11-20 good. pelvic us done. positive KWAN seen Rheum ? MCTD, ANCAs neg. mother wegners, SBFT negg. had MRI entero negative. Status: Resolved as of 10-May-2017 Abdominal wall mass of left upper quadrant (R19.02, 789.32) Comments: seems to be in subcutaneous area. tender to touch. will do nsaid but n asa jong do short course of prednisone not better then us Status: Inactive as of 12-Sep-2015 Abnormal blood chemistry (R79.9, 790.6) Comments: Elevated C4,elevated C3, Elevated CRp, microalbumin with Free kappa chains pos KWAN pos RECEPTIONIST elevated sed rate Status: Inactive as of 12-Sep-2015 Abnormal CAT scan (R93.8, 793.99) Comments: us pelvis okay. KUB done Status: Resolved as of 12-Sep-2015 Abnormal EKG (R94.31, 794.31) Status: Inactive as of 06-Jul-2013 Abnormal fasting glucose (R73.01, 790.29) Comments: better now Status: Resolved as of 03-Jun-2017 Acute pharyngitis (J02.9, 462) Comments: called and talk to Dr. arce while patient herereturn of signs and symptoms after stop levaquin. one day later get. Status: Resolved as of 10-May-2017 Allergic reaction to penicillin (T36.0X5A, 995.29) Status: Inactive as of 07-Jun-2014 BMI 40.0-44.9, adult (Z68.41, V85.41) Status: Resolved as of 10-May-2017 Body aches (R52, 780.96) Comments: suspect viral etiology Status: Inactive as of 12-Sep-2015 Bronchitis (J40, 490) Status: Inactive as of 12-Sep-2015 Burn of unspecified degree of forearm (943.01) Comments: roughly 5% R Status: Inactive as of 06-Jul-2013 Candidiasis (B37.9, 112.9) Status: Resolved as of 10-May-2017 Cough with congestion of paranasal sinus (J01.80, 461.9) Status: Inactive as of 11-Oct-2014 Dehydration (E86.0, 276.51) Status: Inactive as of 12-Sep-2015 Diarrhea, unspecified type (R19.7, 787.91) Comments: off and on check stool. better some will do ibd promethuis test. right now better with fiber. Status: Resolved as of 03-Apr-2016 Dysuria (R30.0, 788.1) Status: Resolved as of 10-May-2017 Elevated blood-pressure reading without diagnosis of hypertension (R03.0, 796.2) Comments: better now off care one at [facility]. Status: Inactive as of 01-Mar-2014 Elevated WBC count (D72.829, 288.60) Comments: elevated sed rate Status: Inactive as of 12-Sep-2015 Epigastric pain (R10.13, 789.06) Comments: been better Status: Inactive as of 01-Aug-2015 Fever (R50.9, 780.60) Status: Inactive as of 11-Oct-2014 Fever and chills (R50.9, 780.60) Status: Inactive as of 12-Sep-2015 Flu-like symptoms (R68.89, 780.99) Status: Inactive as of 12-Sep-2015 Headache (R51, 784.0) Status: Inactive as of 03-Apr-2016 Hypokalemia (E87.6, 276.8) Comments: slightlow will give handout given to increae in diet and recheck in few weeks Status: Inactive as of 12-Sep-2015 Infection of right foot (L08.9, 686.9) Comments: went into [facility] after at [facility] in water. will do soap cleanses only once a day bacitracin and wrap can walk on now. once healed can stop wipe and wrapps. Status: Resolved as of 20-Feb-2018 Intertriginous candidiasis (B37.2, 112.3) Comments: better now. Status: Resolved as of 10-May-2017 Nausea (R11.0, 787.02) Status: Inactive as of 06-Jul-2013 Nausea and/or vomiting (R11.2, 787.01) Comments: with dry heaves Status: Inactive as of 12-Sep-2015 Need for prophylactic vaccination and inoculation against influenza (Z23, V04.81) Status: Inactive as of 06-Jul-2013 Palpitations (R00.2, 785.1) Comments: better. Status: Inactive as of 30-Apr-2011 , abdominal, with intrauterine (O00.01, 633.01) Status: Inactive as of 06-Jul-2013 Preop examination (Z01.818, V72.84) Status: Resolved as of 10-May-2017 RUQ pain (R10.11, 789.01) Comments: GI cocktail not help wbc up. not have acute abdomen. ? PUD, ?GB. consider viral will do stat xrays and us. see what show. Status: Inactive as of 01-Aug-2015 Screening for lipid disorders (Z13.220, V77.91) Status: Inactive as of 07-Jun-2014 Streptococcal infection group A (B95.0, 041.01) Status: Inactive as of 07-Jun-2014 Thrush (B37.0, 112.0) Status: Inactive as of 12-Sep-2015 Tonsillitis (J03.90, 463) Comments: resolve on atb and will follow up [facility] ent Status: Resolved as of 10-May-2017 Unspecified Diagnosis Status: Inactive as of 06-Jul-2013 Unspecified Diagnosis Status: Inactive as of 06-Jul-2013 Unspecified Diagnosis Status: Inactive as of 06-Jul-2013 Unspecified Diagnosis Status: Inactive as of 06-Jul-2013 Unspecified Diagnosis Status: Inactive as of 12-Sep-2015 Well woman exam (Renamed from Encounter for well woman exam) (Z01.419, V72.31) Status: Resolved as of 20-Feb-2018 Wrist pain, right (M25.531, 719.43) Comments: ? from computer. splint and aleve not help. will send to [facility] Status: Inactive as of 01-Aug-2015 Procedures Procedure Dates Details Annual Eye Exam Completed Comments: Spring 2015 Delivery Completed Comments: 1 Cholecystectomy Completed Jan-2015 Colonoscopy Completed Comments: 11-07-15 Colonoscopy, Screening Completed Comments: November 2015 Pap Smear Completed Comments: Date Value Details 03-Apr-2018 Lower Ext Joint Only (Routine) Result: Comments: See Note; NOTES: [facility] Imaging Services [address] [place] [address] Lower Ext Joint Only (Routine) MR#: [id number] Acct: [id number] Name: SANDRA RATLIFF Rep #: [id number] : 1980 F 37 From: Laurent Amos MD PCP: Michelle Reaves MD Status: REG CLI Study: Lower Ext Joint Only (Routine) Date of Exam: 04/03/18 Exam# [id number] Ordering Dr: Michelle Reaves MD STUDY: MRI LEFT KNEE REASON FOR EXAM: Medial knee pain, popping, swelling, no specific injury. TECHNIQUE: Standardized fat and water weighted pulse sequences were obtained in all 3 orthogonal planes . COMPARISON: Radiographs 02/08/2018. FINDINGS: Normal medial meniscus. Normal hyaline cartilage of the medial femorotibial compartment. Normal medial femoral condy le and tibial plateau. Normal medial collateral ligamentous complex (MCL). Normal distal semimembranosus, gracilis and semitendinosus tendons. Normal lateral meniscus. Normal hyaline cartilage of the lateral femorotibial compartment. Normal lateral femoral condyle and tibial plateau. Normal proximal tibiofibular articulation. Normal lateral collateral (fibular) ligament. Normal po pliteus tendon. Normal biceps femoris tendon. Normal anterior cruciate ligament (ACL). Normal posterior cruciate ligament (PCL). Normal congruent patellofemoral articulation. There is low-grade chondr omalacia of the lateral patellar facet (T2 axial image 10). Normal medial and lateral patellar retinaculum. Normal quadriceps tendon. Normal patellar tendon. Normal Hoffa's fat pad. There is a very sm all joint effusion. There is mild edema in the anterior subcutis adipose space. There is a small enchondroma in the distal femoral metaphysis (T2 sagittal image 10) measuring 0.5 cm in length. MRI/Lower Ext Joint Only (Routine) IMPRESSION: Low-grade chondromalacia patellae. Small joint effusion. Small enchondroma in the distal femur. No demo nstrated meniscal or ligamentous injury. Electronically Signed: Laurent Amos MD at 11:33 EDT Tel , Service support , CC: Michelle Reaves MD Family Services Worker: Signed 31-Mar-2018 PT D/C Summary (1) Result: Comments: See Note; NOTES: [facility] [address] [place] [address]. [address] [place] [address] Fax REHABILITATION SERVICES DISCHAR GE SUMMARY MR#: [id number] Acct: [id number] Name: SANDRA RATLIFF Rep #: [id number] : 1980 37 From: Keri Mack PT, Cert. MDT Referring Dr.: Michelle Reaves MD Status: REG RCR Insurance: [facility] SELF PAY INSURANCE HP - PT D/C Summary It has been my pleasure to treat SANDRA RATLIFF under orders from Michelle Reaves, for the diagnosis of LEFT MEDIAL KNEE PAIN for a total of 12 v isit(s). Discharge Date: Please see the following information for a summary of their discharge status. - Subjective Subjective: PATIENT REPORTS IT SEEMS LIKE SHE CAN DO MORE THINGS WITH LESS SQUEEZI NG AND PRESSURE IN HER KNEE BUT IT STILL POPS. SHE REPORTS IT USE TO FEEL MORE LIKE HER KNEE WASN'T FITTING IN PLACE WELL IT IS NOW BUT THE POPPING AND SWELLING CONTINUES. PATIEN T REPORTS SHE HAS BEEN ABLE TO TOLERATE THE EX HERE IN PT AND AT HOME IT JUST HASN'T HELPED IT GET BETTER SHE HAD HOPED. - Pain medial L knee Pain Intensity (Out of 10): 2 - Overall Improveme nt % Improvement: 25 - Objective Objective/Function: PATIENT HAS HAD ONLY MINIMAL IMPROVEMENT IN PT WITH LEFT HIP STRENGTH IMPROVIING AND GETTING A FEW MORE DEGREES OF BEND IN HER KNEE BUT HER FUNCTION IS STILL SIGNIFICANTLY LIMITED. UPON EXAM TODAY PATIENT DEMO'S INDEP GAIT INTO PT WITHOUT ANY ASSISTIVE DEVICES OR GROSS DEVIATIONS NOTED. MILD LEFT KNEE EDEMA COMPARED TO RIGHT WITH INCREASED TISSUE T EMP OF LEFT MEDIAL KNEE COMPARED TO OTHER KNEE. Motor deficit: NATE LE STRENGTH GROSSLY 5/5 WITH MMT'ING EXCEPT LEFT KNEE EXT 4/5 AND FLEX 4-/5. Sensory deficit: DECREASED LIGHT TOUCH SENSATION OF LEFT A NTERIOR AND MEDIAL KNEE. ROM deficit: 0-122 DEG RIGHT KNEE AND 0-119 LEFT KNEE. Core strength: POOR. Palpation: LEFT MEDIAL KNEE TENDERNESS AND TENDERNESS OVER PATELLAR TENDON. NO SIGNIFICANT CHANGE IN LEFS SCORE WITH CHANGE FROMO 53 TO 55 - Goals Goal 1:: DECREASE C/O LEFT KNEE PAIN Goal Progress: Not Progressing Goal 2:: DECREASE LEFT KNEE SWELLING Goal Progress: Progressing Goal 3:: IMPROVE STANDI NG, WALKING, STAIR CLIMBING AND KNEE FLEX/SQUATTING FUNCTION Goal Progress: Not Progressing Goal 4:: INDEP HEP Goal Progress: Progressing - Plan Plan: D/C DUE TO LACK OF MORE PROGRESS WITH PT AT THIS T DARIAN. - D/C Information If there are questions or concerns regarding this patient's physical therapy, please feel free to call me at [phone]. Thank you for the referral of this patient. Sincerely, Keri Mack <Electronically signed by Keri Mack PT, Cert. MDT> 03/31/18 1407 CC: Michelle Reaves MD ZELDA Signed 04-Mar-2018 Inital Evaluation (1) - PT Result: Comments: See Note; NOTES: [facility] [address] [facility]. [address] [place], [place] [address] Fax REHABILITATION SERVICES INITIAL EVALUATION MR#: [id number] Acct: [id number] Name: SANDRA RATLIFF Rep #: [id number] : 1980 37 From: Keri Mack PT, Cert. MDT Referring Dr.: Michelle Reaves MD Status: REG RCR Insurance: [employer] [facility] SELF PAY INSURANCE Patient's Visit Information SANDRA RATLIFF is a 37 year old F referred to Physical Therapy by Michelle Reaves with a diagnosis of LEFT MEDIAL KNEE PAIN. Date of Ev aluation: 02/28/18 Physical Therapist: Keri Mack - Visit Plan Frequency: 2-3x /Week Duration: 4-6 Weeks Plan: LEFT KNEE US, ROM, STRETCHING AND STRENGTHEING TO HELP MEET SET GOALS. - Subjective Encarnacion bjective: Work/Leisure: [employer]. Disability: NO. Present symptoms: INSIDE OF LEFT KNEE. NO NUMBNESS OR TINGLING. IT POPS. Present since: MID JANUARY 2018. Pain Scale: WORST 5/10, LEAST 1/10. Currently: 08/17. Commenced as a result of: GETTING INTO CAR AND KNEE POPPED AND IT HAS BEEN SWOLLEN EVER SINCE. Symptoms at onset: SAME. Worse: BEING ON FEET MORE SINCE STARTED BACK T O WORK FEELING PRESSURE AND TENSION IN IT. PROLONGED SITTING. STEPS. POPPING IS RANDOM AND IT ISN'T POPPING MUCH IT WAS. THE SWELLING HAS NEVER GONE DOWN. GETTING DOWN ON KNEES. Better: ICE. Disturbed sleep: NO. Previous history/Previous treatment: UNREMARKABLE. Gait: NORMAL NOW. Accidents: NO. Unexplained weight loss: NO. Imaging: LEFT KNEE X-RAY SHOWING SOME INFLAMMATION AND MILD DEGENERATIVE ARTHRITIS. FINDINGS: Normal visualized distal femur. Normal visualized proximal tibia and. fibula. Normal proximal tibiofibular articulation. There is mild degenerative arthrosis of th e medial femorotibial. compartment. There is mild degenerative arthrosis of the lateral. femorotibial compartment. There is mild degenerative arthrosis of the. patellofemoral articulation. There could b e a trace joint effusion. There. is no visualized fracture. There is enthesopathic the at the patellar. insertion of the quadriceps tendon. The soft tissue structures are unremarkable. 7 RAD/Knee 4 or More Views. IMPRESSION: Mild degenerative change. No visualized fracture. Cannot exclude trace. effusion. MRI HAS BEEN ORDERED. PMH: BLOOD CLOTTING DISORDER - ANTIPHOSPHOLIPID SYNDROME. OVER-ACTIVE THYROID, ACID REFLUX. ANXIETY. FATTY LIVER DZ. IBS - Objective Sitting/Standing Posture: NATE GENU VALGUS. Other Observations: INDEP GAIT INTO PT WITHOUT ANY ASSISTIVE DEVICES OR GROSS DEVIA TIONS NOTED. MODERATE LEFT KNEE EDEMA COMPARED TO RIGHT. Motor deficit: NATE LE STRENGTH GROSSLY 5/5 WITH MMT'ING EXCEPT NATE HIPS 4/5 AND LEFT KNEE EXT 4-/5 AND FLEX 4-/5. Sensory deficit: DECREASED LIGH T TOUCH SENSATION OF LEFT ANTERIOR AND MEDIAL KNEE. ROM deficit: 0-122 DEG RIGHT KNEE AND 0-115 LEFT KNEE. Core strength: POOR. Palpation: LEFT MEDIAL KNEE TENDERNESS AND TENDERNESS OVER PATELLAR TENDON . - Goals Goal 1:: DECREASE C/O LEFT KNEE PAIN Goal Time Frame: 4-6 Weeks Goal 2:: DECREASE LEFT KNEE SWELLING Goal Time Frame: 4-6 Weeks Goal 3:: IMPROVE STANDING, WALKING, STAIR CLIMBING AND KNEE FLE X/SQUATTING FUNCTION Goal Time Frame: 4-6 Weeks Goal 4:: INDEP HEP Goal Time Frame: 4-6 Weeks - Rehabilitation Potential Rehabilitation Potential: Fair - Anticipated Interventions Patient/Client Instr uction: Educate patient on: Condition, Plan of Care, Risk Factors, Benefits of Fitness Program For the Purpose of:: To improve self management Therapeutic Exercise to Include: Strength training, Flexibi lty training, Passive ROM, Active ROM, Dynamic Lumbar Stabilization For the Purpose of:: To decrease pain, To increase ROM, To improve muscle performance and motor function, To increase tolerance to act ivity/condition/position, To improve ability of physical actions for home/community/work/leisure Cryotherapy (ice pack, ice massage): Yes Ultrasound (thermal/non thermal): Yes For the Purpose of:: To de crease pain, To decrease swelling/inflammation, To increase ROM, To improve nutrient delivery to tissue Thank you for the opportunity to evaluate your patient. For Medicare and Medicare HMO plans, please review the plan of care and approve it. It will need to be FAXED BACK to us at [phone] for Medicare purposes. Please let me know if there are questions or concerns regarding this plan of c are. Physician Signature: Date: <Electronically signed by Keri Mack PT, Cert. MDT> 03/04/18 1248 CC: Michelle Butterfield ZELDA Signed For Medicare only, by signing this I certify the plan of care. Physicians Signature Date 08-Feb-2018 Knee 4 or More Views Result: Comments: See Note; NOTES: [facility] Imaging Services [address] [place] [address] Knee 4 or More Views MR#: [id number] Acct: [id number] Name: SANDRA RATLIFF Rep #: [id number] : 1980 F 37 From: Caity Felix MD PCP: Michelle Reaves MD Status: REG CLI Study: Knee 4 or More Views Date of Exam: 02/08/18 Exam# [id number] Ordering Dr: Michelle Reaves MD STUDY: X-RAY - LEFT KNEE REASON FOR EXAM: Female, 37 years old. [place] pop swelling pain TECHNIQUE: 4 view(s) of the knee. COMPARISON: None. FINDINGS: Normal visualized distal femur. Normal visualized proximal tibia and fibula. Normal proximal tibiofibular articulation. There is mild degenerative arthrosis of the medial femorotibial compartment. There is mild degenerative arthrosi s of the lateral femorotibial compartment. There is mild degenerative arthrosis of the patellofemoral articulation. There could be a trace joint effusion. There is no visualized fracture. There is enthe sopathic the at the patellar insertion of the quadriceps tendon. The soft tissue structures are unremarkable. RAD/Knee 4 or More Views IMPRESSIO N: Mild degenerative change. No visualized fracture. Cannot exclude trace effusion. Electronically Signed: Caity Felix MD at 15:58 EDT Tel , Service support , Fa x [phone] CC: Michelle Reaves MD Family Services Worker: Signed 22-Nov-2015 Emergency Department Summary Result: Comments: See Note; NOTES: [facility] Medical Records Department [address] [place] [address] Emergency Department Summary MR#: [id number] Acct: [id number] Name: SANDRA RATLIFF Rep #: [id number] : 1980 35 From: Bulmaro Rodriguez MD PCP: Michelle Reaves MD Status: [facility] ER DATE OF SERVICE: 11/17/2015 METHOD OF ARRIVAL: By private car. CHIEF COMPLAINT: Abdominal pain. PRIMARY CARE: Dr. Reaves MARIA HISTORY: A 35-year-old female with history of antiphospholipid antibody syndrome, anxiety, has had a prior cholecystectomy, comes in with abdominal pain that started about 6 a.m. today. It has been continuous, sharp in the right side of her abdomen. She points to right by the umbilicus. States currently is a 7. It is worse when she lays down, bet ter with nothing. She describes nausea without vomiting. She states she had some diarrhea today. She cannot tell it has been loose or watery, but 3 of those today with nonbloody, nonmucus. She denie s any urinary symptoms. REVIEW OF SYSTEMS: Other than noted above is unremarkable. PHYSICAL EXAMINATION: VITAL SIGNS: Stable. Afebrile. HEENT: Unremarkable. NECK: Supple. LUNGS: Clear. HEART: Regular. ABDOMEN: Soft with some mild tenderness just lateral to the umbilicus on the right side. She has no McBurney point tenderness. Negative heel strike. No psoas, obturator or Rovsing sign. She does have an evidence of a recent lipoma removed in the left upper quadrant that appears clean, dry and intact. Remainder of exam unremarkable. TESTS: CBC: Her white count is 14.3 with 80% neutrophi ls, 12% lymphocytes. Chemistry panel including LFTs and lipase are normal. Urine is negative. test is negative. Due to white count and pain, a CT scan was obtained with IV and oral contrast. This does show a cyst on the right ovary, 2 cm, fatty liver, but normal appendix. EMERGENCY DEPARTMENT COURSE: At this time, plan will be home. She will be encouraged to follow up with Dr. Reaves, return with any problems. Campus diet, fluids. CLINICAL IMPRESSION: Abdominal pain with nausea and diarrhea. DISPOSITION: Home. MD Chase Odom C: Michelle Reaves MD T: [facility] JOB: [id number] 11/22/15 2339 <Electronically signed by Bulmaro Rodriguez MD> Date Bulmaro Rodriguez MD Cosigner Signature (If Indicated): Date CC: Michelle Reaves MD Date Dictated: 11/17/15 1240 Date Transcribed: 11/17/15 1240 Family Services Worker: Signed 22-Nov-2015 Small Bowel Series Only Result: Comments: See Note; NOTES: [facility] Imaging Services [address] [place] [address] Ava 4d Small Bowel Series Only MR#: [id number] Acct: [id number] Name: HER SANDRA MCKEON Rep #: [id number] : 1980 F 35 From: Leigha Colon MD PCP: Michelle Reaves MD Status: REG CLI Study: Small Bowel Series Only Date of Exam: 11/22/15 Exam# [id number] Ordering Dr: Michelle Medina MD STUDY: AIR-CONTRAST UPPER GI STUDY REASON FOR EXAM: Female, 35 years old. nausea , vomiting, diarrhea , intermittent for 6 months, has had CT's and colonoscopy, all negative RAD IATION DOSAGE (If Supplied By Facility): CTDIvol = ( 5.1 ) mGy, DLP = ( ) mGycm FLUOROSCOPY TIME (if supplied): (0.3) minutes. 14 fluoro images were obtained TECHNIQUE: Multiple views of the abdom en were performed after barium ingestion fluoroscopic examination of the terminal ileal loop is also performed with multiple spot views were obtained COMPARISON: None. FINDINGS: Editing Internship view: The bowel gas pattern is unremarkable there is no evidence of free air in the abdomen. Small bowel follow-through: Normal progression of barium is seen throughout d ifferent parts of the small bowel the cecum is reached at approximately 60 minutes after barium ingestion. The duodenum, jejunum, and ileum mucosal pattern is unremarkable. Fluoroscopic examination o f the terminal loop shows no abnormality. IMPRESSION: Unremarkable study. Electronically Signed: Leigha Colon MD at 16:48 EDT Tel , Service support [phone], RAD/Small Bowel Series Only IMPRESSION: Unremarkable study. Electronically Signed: Leigha Colon MD at 16:48 E DT Tel , Service support [phone], CC: Michelle Reaves MD Family Services Worker: Signed 17-Nov-2015 Discharge Instruction Result: Comments: See Note; NOTES: [facility] Medical Records Department [address] [facility] [place] [address] Discharge Instruction 11/17/15 1236 MR#: [id number] Acct: [id number] Name: SANDRA RATLIFF Rep #: [id number] : 1980 35 From: Bulmaro Rodriguez MD PCP: Michelle Reaves MD Status: REG ER ED Disposition - Plan for ED Patient: Disposition: Home or Assisted Living Chief Complaint: Abd Pain Instructions: ED Abdominal Pain, Unknown Cause, (Female), ED Vomiting And Diarrhea, Nonspecific (Adult) Prescriptions: Hydrocodone Bitart/Apap 5-325 [[place] 5/325] 1 - 2 t ablet PO Q4H PRN PRN #12 tablet PRN Reason: Pain Ondansetron [Zofran Odt] 4 mg PO Q8H PRN PRN #10 tablet PRN Reason: Nausea Dicyclomine HCl [Bentyl] 20 mg PO TID PRN #10 capsule PRN Reason: Gi Cram ping Referrals: Michelle Reaves MD [Primary Care Provider] - 2 Days Additional Instructions: follow up with Dr Reaves. fluids. bland diet. return with problems What to do if you have Problems F or any increased pain, shortness of breath, bleeding, nausea or vomiting, chest pain, or any unexpected problems, contact your doctor. Call [facility] ([phone]) or report to the closest [facility] Room. Call 911 if necessary. 11/17/15 1238 <Electronically signed by Bulmaro Rodriguez MD> Date Bulmaro Michael MD Cosigner Si gnature (If Indicated): Date CC: Michelle Reaves MD 17-Nov-2015 Abdomen/Pelvis WITH Contrast Result: Comments: See Note; NOTES: [facility] Imaging Services [address] [place] [address] Verdana 4d Abdomen/Pelvis WITH Contrast MR#: [id number] Acct: [id number] Name : SANDRA RATLIFF Rep #: [id number] : 1980 F 35 From: Isaac Espinoza MD PCP: Michelle Reaves MD Status: REG ER Study: Abdomen/Pelvis WITH Contrast Date of Exam: 11/17/15 Exam# [id number] [facility] Dr: Bulmaro Rodriguez MD STUDY: CT ABDOMEN AND PELVIS WITH CONTRAST REASON FOR EXAM: Female, 35 years old. Mid lower abdominal pain. Diarrhea and nausea. RADIATION DOSAGE (If Supplied By [facility]): CTDIvol = ( 18.40 ) mGy, DLP = ( 1366.61 ) mGycm TECHNIQUE: Transaxial images were obtained from the dome of the diaphragm to the symphysis pubis with oral contrast. 100ML ml of Isovue 300 c ontrast was administered. Sagittal and coronal images were reconstructed. Individualized dose optimization techniques were used for this CT. COMPARISON: Comparison is made with prior study dated [facility] 2015. FINDINGS: The visualized lung bases are unremarkable. Calcified granuloma in the anterior aspect of the lingular segment of the left upper lobe. The visualized portions of the heart are within normal limits. There is decreased attenuation of the liver consistent with steatosis. The patient is status post cholecystectomy. Normal spleen. Latoya l pancreas. Normal bilateral adrenal glands. Normal right kidney. Normal left kidney. There is a small hiatal hernia. Normal small intestine. Normal colon. The appendix is visualized and appears normal. Normal abdominal aorta. Normal inferior vena cava. Normal retroperitoneum. Normal urinary bladder. There is a 2.1 cm cyst in the right ovary. Dominant follicle in the left ovary. There i s a small umbilical hernia containing fat. Normal osseous structures. IMPRESSION: Diffuse fatty infiltration of the liver. 2 cm cyst in the right ovary. Elect ronically Signed: Isaac Espinoza MD at 12:27 EDT Tel [phone], Service support [phone], CC: Michelle Reaves MD; Bulmaro Rodriguez MD Family Services Worker: Signed 13-Nov-2015 Operative Report Result: Comments: See Note; NOTES: [facility] Medical Records Department [address] [place] [address] Operative Report MR#: [id number] Acct: [id number] Name: NITIN RATLIFF Rep #: [id number] : 1980 35 From: Vi Sanchez MD PCP: Michelle Reaves MD Status: REG CLI DATE OF SERVICE: 11/07/2015 DATE OF SERVICE: November 07, 2015. PREOPERATIVE DIAGNOSIS: Persisten t left upper quadrant abdominal pain. POSTOPERATIVE DIAGNOSIS: Persistent left upper quadrant abdominal pain. PROCEDURE PERFORMED: Colonoscopy. ANESTHESIA USED: IV conscious sedation, total of 5 mg of Versed, 100 mcg of fentanyl, and 50 mg of Benadryl IV. MATERIAL FORWARDED TO LABORATORY FOR EXAMINATION: None. INDICATIONS: The patient is a 35-year-old white female who presents with per sistent left upper quadrant abdominal pain of unknown etiology. She has undergone evaluation, CT scan and ultrasound of the abdomen, etc. However, no etiology for abdominal pain was found. She therefo re presents for evaluation colonoscopy. She has been counseled as to the risks of procedure including but not limited to infection, bleeding, perforation of GI tract requiring emergency surgery, inab ility to complete the colonoscopy, injury to any intraabdominal organs, complications IV anesthesia, etc. The patient understands and agrees to proceed. DESCRIPTION OF PROCEDURE: After informed cons ent was given, the patient was brought to the endoscopy suite and appropriate cardiac, blood pressure and pulse oximetry monitor was placed. Appropriate time-out protocol was followed. The patient was given IV conscious sedation. The endoscope was carefully lubricated and inserted into the patient's anus and advanced into the rectum. It was then advanced into the sigmoid colon, then the left desce nding colon, past the splenic flexure into transverse colon, past the hepatic flexure down the right ascending colon to cecum. The cecum was identified by transillumination, confluence of taenia coli , identification of ileocecal valve and appendiceal orifice and external palpation. At this level, the colonoscope was slowly retracted back and the entire colonic mucosal surface was examined. There was no evidence of any extrinsic pressure or mucosal inflammatory changes throughout the colon. There was no evidence of any strictures or ulcers throughout the colon. There was no evidence of any mas ses or polyps in the right colon. There is no evidence of any masses, polyps in the transverse colon. There is no evidence of any masses or polyps in the left colon. There was no evidence of any mass es or polyps in the sigmoid colon. There was no evidence of any masses or polyps in the rectum. Retroflexed view in the rectum revealed mild hemorrhoidal changes, but no active inflammation or bleedin g noted. The endoscope was removed intact. The patient tolerated the procedure well. There were no complications. Vi Sanchez MD T: [facility] JOB: [id number] 11/13/15 0940 <Electronically sig shawn by Vi Sanchez MD> Date Vi Sanchez MD Cosigner Signature (If Indicated): Date C C: Michelle Reaves MD; Vi Sanchez MD Date Dictated: 11/07/15910 Date Transcribed: 11/07/15910 Family Services Worker: Signed 31-Aug-2015 Abdomen Single View Result: Comments: See Note; NOTES: [facility] Imaging Services [address] [place] [address] Verdana 4d Abdomen Single View MR#: [id number] Acct: [id number] Name: SANDRA RATLIFF Rep #: [id number] : 1980 F 35 From: Isaac Espinoza MD PCP: Michelle Reaves MD Status: REG CLI Study: Abdomen Single View Date of Exam: 08/31/15 Exam# [id number] Ordering Dr: Kirsten Arias STUDY: X-RAY - ABDOMEN/PELVIS REASON FOR EXAM: Female, 35 years old. Periumbilical pain and pressure. TECHNIQUE: Two AP supine views of the abdomen and pelvis. COMPARISON: None. FINDINGS: There is an unremarkable bowel gas pattern. There is no demonstrated free abdominal air. The visualized liver, spleen and kidneys are grossly normal in siz e and morphology. Normal soft tissue structures. Normal visualized osseous structures. IMPRESSION: Normal x-ray examination of the abdomen and pelvis. Electr onically Signed: Isaac Espinoza MD at 13:18 EST Tel [phone], Service support [phone], RAD/Abdomen Single View IMPRESSION: Normal x-ra y examination of the abdomen and pelvis. Electronically Signed: Isaac Espinoza MD at 13:18 EST Tel [phone], Service support [phone], CC: Kirsten Arias ; Michelle Reaves MD Family Services Worker: Signed 29-Jul-2015 Transvaginal Non- Result: Comments: See Note; NOTES: [facility] Imaging Services [address] [place], [place] [address] [address] Verdana 4d Transvaginal Non- MR#: [id number] Acct: [id number] Name: SANDRA ZAVALA Rep #: [id number] : 1980 F 35 From: Isaac Espinoza MD PCP: Michelle Reaves MD Status: REG CLI Study: Transvaginal Non- Date of Exam: 07/29/15 Ex[id number] [facility] Michelle Reaves MD STUDY: ULTRASOUND OF THE FEMALE PELVIS - COMPLETE REASON FOR EXAM: Female, 35 years old. Possible fat-containing mass in the left adnexa. LMP: July 24, 2015. TECHNIQU E: Transabdominal and Transvaginal TECHNICAL QUALITY: Adequate. COMPARISON: Comparison is made with prior CT scan of the pelvis dated July 25, 2015. FINDIN GS: The uterus is anteverted and is in a midline position. The uterus measures 6.9 cm x 5.3 cm x 2.9 cm. Normal uterine cervix. The endometrium measures 4.0 mm in thickness, and is fluid distended. T here is no demonstrated endometrial mass. There is a 1.3 cm x 1.1 cm x 1.3 cm fibroid in the fundal portion of uterus. I.U.D. - The patient does not have an I.U.D. The right ovary is visualized. The right ovary measures 2.8 cm x 1.5 cm x 1.9 cm. There is a 1.4 cm x 0.9 cm x 1.2 cm dominant follicle in the right ovary. There is no visualized right adnexal mass or complex lesion. There is normal arterial and normal venous vascularity. The left ovary is visualized. The left ovary measures 3.8 cm x 1.6 cm x 1.7 cm. There is a dominant follicle measuring 1.5 cm x 1.0 cm x 1.0 cm. Low level ech oes are seen within it. This may represent a hemorrhagic follicle. There is no visualized left adnexal mass or complex lesion. There is normal arterial and normal venous vascularity. There is no flu id in the cul-de-sac. IMPRESSION: Small fibroid in the fundal portion of the uterus. Dominant follicles in both ovaries with low level echoes seen within it on the left side. Electronically Signed: Isaac Espinoza MD at 14:01 EST Tel [phone], Service support [phone], CC: Michelle Reaves MD Family Services Worker: Signed 29-Jul-2015 Pelvic (Non ) Result: Comments: See Note; NOTES: [facility] Imaging Services [address] [place] [address] Verdana 4d Pelvic (Non ) MR#: [id number] Acct: [id number] Name: SANDRA BELLE Rep #: [id number] : 1980 F 35 From: Isaac Espinoza MD PCP: Michelle Reaves MD Status: REG CLI Study: Pelvic (Non ) Date of Exam: 07/29/15 Exam# [id number] Ordering Dr: Michelle Ponce MD STUDY: ULTRASOUND OF THE FEMALE PELVIS - COMPLETE REASON FOR EXAM: Female, 35 years old. Possible fat-containing mass in the left adnexa. LMP: July 24, 2015. TECHNIQUE: Trans abdominal and Transvaginal TECHNICAL QUALITY: Adequate. COMPARISON: Comparison is made with prior CT scan of the pelvis dated July 25, 2015. FINDINGS: The uterus is anteverted and is in a midline position. The uterus measures 6.9 cm x 5.3 cm x 2.9 cm. Normal uterine cervix. The endometrium measures 4.0 mm in thickness, and is fluid distended. There is no demonstrated endometrial mass. There is a 1.3 cm x 1.1 cm x 1.3 cm fibroid in the fundal portion of uterus. I.U.D. - The patient does not have an I.U.D. The right ovary is visualized. The right o vary measures 2.8 cm x 1.5 cm x 1.9 cm. There is a 1.4 cm x 0.9 cm x 1.2 cm dominant follicle in the right ovary. There is no visualized right adnexal mass or complex lesion. There is normal arterial and normal venous vascularity. The left ovary is visualized. The left ovary measures 3.8 cm x 1.6 cm x 1.7 cm. There is a dominant follicle measuring 1.5 cm x 1.0 cm x 1.0 cm. Low level echoes are seen within it. This may represent a hemorrhagic follicle. There is no visualized left adnexal mass or complex lesion. There is normal arterial and normal venous vascularity. There is no fluid in th e cul-de-sac. IMPRESSION: Small fibroid in the fundal portion of the uterus. Dominant follicles in both ovaries with low level echoes seen within it on the lef t side. Electronically Signed: Isaac Espinoza MD at 14:01 EST Tel [phone], Service support [phone], CC: Michelle Reaves MD Family Services Worker: Signed 25-Jul-2015 Abdomen/Pelvis WITH Contrast Result: Comments: See Note; NOTES: [facility] Imaging Services [address] [place] [address] Verdana 4d Abdomen/Pelvis WITH Contrast MR#: [id number] Acct: [id number] Name : SANDRA RATLIFF Rep #: [id number] : 1980 F 35 From: Isaac Espinoza MD PCP: Michelle Reaves MD Status: REG CLI Study: Abdomen/Pelvis WITH Contrast Date of Exam: 07/25/15 Exam# [id number] Ordering Dr: Michelle Reaves MD STUDY: CT ABDOMEN AND PELVIS WITH CONTRAST REASON FOR EXAM: Female, 35 years old. Left-sided abdominal pain. RADIATION DOSAGE (If Supplied By Facility): CTDIvol = ( 18.85 ) mGy, DLP = ( 2188.64 ) mGycm TECHNIQUE: Transaxial images were obtained from the dome of the diaphragm to the symphysis pubis with oral contrast. 100cc ml of Isovue 300 contrast was admini stered. Sagittal and coronal images were reconstructed. Delayed imaging was obtained as well. COMPARISON: None. FINDINGS: Calcified granuloma in the anterior a spect of the left lower lobe. The visualized portions of the heart are within normal limits. Normal liver. The gallbladder is not visualized and most likely is secondary to prior cholecystectomy. No rmal spleen. Normal pancreas. Normal bilateral adrenal glands. Normal right kidney. Normal left kidney. There is a small hiatal hernia. Normal small intestine. Normal colon. The appendix is visua lized and appears normal. Normal abdominal aorta. Normal inferior vena cava. There is borderline retroperitoneal lymphadenopathy with enlarged nodes no greater than 10mm in the short axis diameter. Normal urinary bladder. Question with 3.8 cm x 4.4 cm fat-containing lesion in the left adnexa. Correlation with ultrasound of the pelvis is recommended. There is a small umbilical hernia containi ng fat. Normal osseous structures. IMPRESSION: Questionable fat containing density in the left adnexa. Correlation with a pelvic sonogram is recommended. Elec tronically Signed: Isaac Espinoza MD at 9:19 EST Tel [phone], Service support [phone], CC: Michelle Reaves MD Family Services Worker: Signed 07-Jul-2015 Abdomen Limited Result: Comments: See Note; NOTES: [facility] Imaging Services [address] [place] [address] Verdana 4d Abdomen Limited MR#: [id number] Acct: [id number] Name: JEANNIE RATLIFF Rep #: [id number] : 1980 F 35 From: Leigha Colon MD PCP: Michelle Reaves MD Status: REG CLI Study: Abdomen Limited Date of Exam: 07/07/15 Exam# [id number] Ordering Dr: Michelle Reaves MD STUDY: ABDOMINAL ULTRASOUND - RIGHT UPPER QUADRANT REASON FOR VISIT: Female, 35 years old. TECHNIQUE: Ultrasound evaluation of the right upper quadrant was performed with real-time and static gr ay-scale imaging. TECHNICAL QUALITY: Adequate. COMPARISON: None. FINDINGS: Liver: The liver measures 15.8 cm. There is increased echogenicity consistent wit h fatty infiltration. The bile ducts are within normal limits. There is hepatic color flow. The direction of portal flow is hepatopetal. There is no demonstrated mass lesion. Gallbladder: The patien t is status post cholecystectomy. Common Bile Duct (C.B.D.): The common bile duct measures 2.9 mm. Pancreas: Normal size of the head, body and tail of the pancreas. There is normal echogenicity of the pancreas. There is no demonstrated pancreatic mass or cyst. Right Kidney: Normal size of the right kidney. The right kidney measures 12x5x4 cm. Normal renal cortex. The right cortex measures 1.2 cm. There is no demonstrated renal mass or cyst. There is no right hydronephrosis. IMPRESSION: There is increased echogenicity consistent with fatty infiltratio n. Electronically Signed: Lynda Colon MD at 16:22 EST Tel , Service support [phone], CC: Michelle Reaves MD Family Services Worker: Signed 22-Apr-2015 OT Discharge Summary Result: Comments: See Note; NOTES: [facility] Occupational Therapy Health[address] [place], [place] [address] Fax REHABILITATIO N SERVICES DISCHARGE SUMMARY MR#: [id number] Acct: [id number] Name: SANDRA RATLIFF Rep #: [id number] : 1980 34 From: Bernarda De La Vega Referring Dr.: Ofe Jay DO Status: PRE RCR Eval Date: Discharge Date: DATE OF SERVICE: PHYSICIAN: Ofe Jay D.O. This 34-year-old female was seen for initial occupational therapy evaluation on November 11, 2014. The patient w as referred with a diagnosis of flexor carpi ulnaris tendinitis. The patient was seen for a total of 12 visits. The patient was reporting a decrease in pain, stating inconsistently coming and going. I ontophoresis/dexamethasone was not covered with her insurance. However, she did make some improvements. 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 She was reporting independence with act ivities of daily living at this time. The patient was last seen on January 11, 2015, no further appointments were indicated. At this time, the patient is discharged. Bernarda De La Vega, OTR/L T: NTS JOB: [id number] <Electronically signed by Bernarda De La Vega > 04/22/15 1057 CC: Signed 10-Feb-2015 Operative Report Result: Comments: See Note; NOTES: [facility] Medical Records Department [address] [place] [address] Operative Report 02/02/15 1305 MR#: [id number] Acct: [id number] Name: SANDRA DAUGHERTY Rep #: [id number] : 1980 34 From: Vi Sanchez MD PCP: Michelle Reaves MD Status: [facility] [place] [facility] [place] of Operation Date of Procedure: 02/02/15 Pre-Operative Diagno sis: cholelithiasis, cholecystitis Post-Operative Diagnosis: same Surgery/Procedure Performed:: laparoscopic cholecystectomy with cholangiogram 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 Appropriate time out protocol was followed. The patient was then placed under general endotracheal anesthesia . The abdomen was then prepped with a sterile surgical skin preparation and sterile surgical drapes were placed. An area of skin fold was grasped with penetrating clamps and the skin and subcutaneous tissues were infiltrated with 0.25% marcaine with epinephrine. A skin incision was then made with a 15 blade scalpel. The anterior abdominal wall was elevated and a Veress needle was carefully inserte d into the intraabdominal cavity. It was checked to be in the proper position with a normal saline drop test. A CO2 pneumoperitoneum was then created. Once this was achieved, then the Veress needle wa s removed and an 11mm trocar was placed in its stead. A 10mm laparoscope was then inserted into the trocar and careful attention was directed to the intraabdominal contents. There was no evidence of i njury to any intraabdominal organs from insertion of the Veress needle or the trocar. Under direct visualization, a 5mm subxiphoid trocar and two lateral 5mm right subcostal trocars were placed. The s kin and subcutaneous tissues at these sites were infiltrated with 0.25% marcaine with epinephrine prior to placement of these trocars. Attention was then directed to the right upper quadrant of the ab domen. The gallbladder was distended. Needle aspiration was done so that the gallbladder could be deflated enough to grasp. Hydrops was noted. The gallbladder wall was edematous. Graspers were then pl aced in the lateral trocars to grasp the distal aspect of the gallbladder and direct it cephalad and to grasp the gallbladder at Murrell s pouch and direct it laterally. Dissection then began on the pr oximal gallbladder continuing down to the area of the triangle of Calot to bluntly dissect out the cystic duct. The neck of the gallbladder was identified and blunt dissection continued to dissect out a segment of the cystic duct. A clip was then placed on the neck of the gallbladder. Two clips were placed proximally and the cystic duct was then transected. The cystic artery was visualized and blun tly isolated and then two clips were placed proximally and one clip distally and then it was transected between the proximal and distal clips. The gallbladder was then from the liver bed usin g electrocautery and thus able to be brought out of the umbilical port. It was then forwarded to pathology for analysis. The liver bed was carefully examined. There was no evidence of bile leakage or b leeding. The cystic duct stump and cystic artery stump had their clips intact and there was no evidence of bile leakage or bleeding. Kwesi was applied to the liver bed because of inflammatory oozing from the acute nature of the disease. The remainder of the abdomen was grossly normal. The CO2 was released and all trocars removed intact. The periumbilical fascia was approximated with a figure-of-e ight 0 vicryl suture. All skin incision were closed with 4-0 monocryl in a subdermal fashion. Cavilol and Steristrips were used to reinforce the skin closure. Sterile dressings were applied to all wou nds. The patient was extubated and brought to the Recovery Room in stable condition. - Complications none noted - Admit VTE Documentation VTE Present on Admission: Yes VTE Mechan Device Prophyla xis: SCD's VTE Pharm Prophylaxis ordered?: No Reason prophylaxis not ordered:: Treatment Not Indicated 02/10/15 0817 <Electronically signed by Vi Sanchez MD> Date ____ Vi Sanchez MD CC: Michelle Reaves MD; Vi Sanchez MD Signed 04-Feb-2015 12 Lead Electrocardiogram Result: Comments: See Note; NOTES: [facility] Cardiovascular Services [address] [place] [address] 12 Lead EKG 02/02/15 1129 MR#: [id number] Acct: [id number] Name: RENETTA RATLIFF Rep #: [id number] : 1980 34 From: Stephane Boyle MD Attending Dr: Vi Sanchez MD Status: [facility] Ordering Dr: Buzz Collins MD Date: 02/02/15 [place] [facility] [place] Sex: F C Admitted: Test Pryor son : PRE OP Blood Pressure : / mmHG Vent. Rate : 074 BPM Atrial Rate : 074 BPM P-R Int : 134 ms QRS Dur : 110 ms QT Int : 378 ms P-R-T Axes : 051 071 046 degrees QTc Int : 419 ms Normal sinus rhythm Normal ECG No previous ECGs available Confirmed by STEPHANE BOYLE MD ([id number]), managing editor JASMIN RAMOS ([id number]) on 02/04/2015 10:20:06 AM Referred By: LALO Confirmed By:STEPHANE BOYLE MD 1020 Date Stephane Boyle MD CC: Michelle Reaves MD Date Dictated: 02/02/15 1129 Date Transcribed: 02/02/151128 Family Services Worker: Signed 04-Feb-2015 Emergency Department Summary Result: Comments: See Note; NOTES: [facility] Medical Records Department [address] [place] [address] Emergency Department Summary MR#: [id number] Acct: [id number] Name: SANDRA BELLE Rep #: [id number] : 1980 34 From: Naldo Schaeffer MD PCP: Michelle Reaves MD Status: DEP ER DATE OF SERVICE: 02/01/2015 CHIEF COMPLAINT: Abdominal pain, nausea, vomiting. HISTORY OF PRESENT ILLNESS: The patient is a 34-year-old well-appearing female who approximately 5 hours prior to presentation woke up with upper abdominal cramping, kind of sort of pain, and nausea and vomiting. She denies any hematemesis. No diarrhea. No urinary symptoms. No other complaints. No fevers. PAST MEDICAL HISTORY: Significant for antiphospholipid syndrome, for which she takes asp irin. MEDICATIONS AND ALLERGIES: Reviewed. PAST SURGICAL HISTORY: Includes . REVIEW OF SYSTEMS: Significant for abdominal pain, nausea and vomiting. Review of systems is otherwise neg ative. PHYSICAL EXAMINATION: VITAL SIGNS: Afebrile with stable vitals. GENERAL: Obese appearing. HEENT: Normocephalic, atraumatic. Moist mucous membranes. NECK: Supple. CARDIOVASCULAR: Regular ra te and rhythm without murmur. RESPIRATORY: In no distress. Clear and equal to auscultation bilaterally. ABDOMEN: Soft, nontender, nondistended. No hernia or pulsatile mass. No pain in the right upper quadrant or right lower quadrant. BACK: No CVA tenderness. EXTREMITIES: Nontender without edema. SKIN: Normal color and without rash. NEUROLOGIC: Alert and oriented. Normal strength and sensation. Normal affect. EMERGENCY DEPARTMENT COURSE: CBC, BMP unremarkable other than a white blood cell count of 12.5. Hepatic panel within normal limits. Lipase normal. Urinalysis not consistent with infec tion. HCG negative. She was given IV fluids, Zofran and morphine. At 0446, repeat abdominal exam was soft, nontender, nondistended. She still had minimal pain, was given Dilaudid and Bentyl with impr ovement. She was also given Phenergan. On re-evaluation at 0532, she states she feels improved. She tolerated p.o. intake and repeat abdominal exam is again soft, nontender, nondistended. She has no p alpable tenderness on exam. Her abdominal exam is benign. I do not feel she requires any imaging at this time. I spoke with the patient and family at length regarding strict abdominal pain return prec autions, instructed her to call Dr. Reavse's office this morning for a followup appointment today for reevaluation and reexamination and to return to the Emergency Department with any new or worsenin g symptoms and they are agreeable. DISPOSITION: At this time is discharge. CONDITION: Stable. IMPRESSION: 1. Abdominal pain, improved. 2. Nausea and vomiting. MD Chase Perdomo C: Michelle Reaves MD T: NTS JOB: [id number] 02/04/15 0552 <Electronically signed by Naldo Schaeffer MD> Date Naldo quintanilla MD CC: Michelle Reaves MD Date Dictated: 02/01/15536 Date Transcribed: 02/01/15536 Family Services Worker: Signed 02-Feb-2015 Discharge Instruction Result: Comments: See Note; NOTES: [facility] Medical Records Department [address] [place] [address] Instructions for Home/Discharge Instructions 02/02/15 1305 MR#: [id number] ct: [id number] Name: SANDRA RATLIFF Rep #: [id number] : 1980 34 From: Vi Sanchez MD PCP: Michelle Reaves MD Status: [place] [facility] [place] Discharge Diet: No Restrictions - drink plenty of fluids, gita id carbonated beverages for a few days Discharge Activity: Return to Normal Activity, May not drive while taking narcotic pain medications. Lifting Restrictions: no lifting greater than 20 pounds fo r 2 weeks Call your doctor if your incision/area has: Continuous Slow Oozing, Foul Smelling Discharge Call your doctor if you observe: Fever of 101 or Higher Additional Dressing/Incision Instructions :: Leave dressings in place. May get wet in shower. Do not soak - no tub baths/swimming Allergies/Adverse Reactions: Allergies amoxicillin Allergy (Verified 02/01/15 03:20) Rash tobramycin Allerg y (Verified 02/01/15 03:20) Other Medications to take at Discharge Cholecalciferol (Vitamin D3) [Vitamin D] 2,000 unit PO DAILY 02/01/15 Dicyclomine HCl [Bentyl] 20 mg PO TIDAC PRN #30 capsule Norgestimate-Ethinyl Estradiol [Sprintec] 1 each PO DAILY 02/01/15 ProMETHAzine [Phenergan] 25 mg PO Q6H PRN PRN #10 tablet 02/01/15 Sertraline HCl [Zoloft] 50 mg PO DAILY 02/01/15 Spironolac tone [Aldactone] 200 mg PO DAILY 02/01/15 Ciprofloxacin [Cipro] 500 mg PO BID 02/02/15 Hydrocodone Bitart/Apap 5-325 [Vicodin 5/325] 1 tablet PO Q4H PRN PRN #30 tablet 02/02/15 Metronidazole [Flagyl] 500 mg PO BID 02/02/15 RX: Aspirin E.C. [Ecotrin] 81 mg PO DAILY@0800 02/02/15 The following prescriptions were given: Hydrocodone Bitart/Apap 5-325 [Vicodin 5/325] 1 tablet PO Q4H PRN PRN #30 tab let PRN Reason: Pain Please Follow Up With: Vi Sanchez - call When: to be seen in 7-10 days, please call for date and time, thank you 02/02/15 0772 <Electronically deangelo d by Vi Sanchez MD> Date Vi Sanchez MD CC: Michelle Reaves MD 02-Feb-2015 History and Physical Exam Result: Comments: See Note; NOTES: [facility] Medical Records Department [address] [place] [address] History and Physical 02/02/15 1155 MR#: [id number] Acct: [id number] Name: SANDRA RATLIFF Rep #: [id number] : 1980 34 From: Vi Sanchez MD PCP: Michelle Reaves MD Status: REG [facility] [place] Location: [place] [address] History and Physical - Blank Date of Admission: 02/02/15 Louise rendon Provider: Dr. Reaves History of Present Illness: Sandra Ratliff is a 34 y/o WF who presents with severe right upper quadrant abdominal pain that awoke patient from sleep late Saturday night/saturday morning. She presented to ED. Was given IV fluids and pain medication and then told to follow up with her primary physician. Underwent US of gallbladder yesterday and found to have gallblad luis wall thickening of 3mm with edema noted and multiple echogenic structures within the gallbladder. Still with abdominal pain this morning. Also had symptoms of nausea and emesis. Denies changes in bowel habits. Has no appetite. Denies fevers. Denies icterus or other obstructive biliary type signs/symptoms. Dr. Reaves placed patient on augmentin and patient has been taking this. Past Medica l History: Antiphospholipid anti bodies in blood Anxiety disorder Morbid obesity, class III Past Surgical History: [place] teeth extraction C section 2010 Past injuries: denies history of head tra josie, denies history of bone fractures Family History: mother- wegeners, thyroid grandparents- heart attack, pancreatic cancer, breast cancer, angioplasty Social History: Has never smoked cigarettes . , lives with spouse Medications: TAMMI LOW DOSE 81 MG ORAL TBEC (ASPIRIN) once daily SPIRONOLACTONE 100 MG ORAL TABS (SPIRONOLACTONE) two tabs daily PREVIFEM 0.25-35 MG-MCG ORAL TABS (NORG ESTIMATE-ETH ESTRADIOL) once daily SERTRALINE HCL 50 MG ORAL TABS (SERTRALINE HCL) once daily VITAMIN D 2000 UNIT ORAL TABS (CHOLECALCIFEROL) once daily Allergies: TOBRAMYCIN (TOBRAMYCIN) (Critical) AMOXICILLIN (AMOXICILLIN) (Critical) Family History Summary: Father (biol.) - Has Family History of Other Diseases - heart attack at age 50 - MGF - Has Family History of Other Diseases - prostate c ancer Review of Systems General Denies fever. Decrease appetite due to pain GI Denies hematochezia. See HPI CV Denies chest pains. Has occasional chest palpitations related to anxiety Resp Denies s hortness of breath and hemoptysis. Denies dysuria and hematuria. Derm Denies history of skin cancer. Neuro Denies paralysis, paresthesias and seizures. Heme Denies bleeding. Denies history of blo od transfusions and blood clots (such as DVT/PE) Physical Exam Height: 69 inches Weight: 275 pounds BMI: 40.61 O2 Sat: 97 % Temp: 97.0 degrees F tympanic Pulse rate: 77 / minute Resp: 18 per min gillian BP sittin / 83 General: well developed, well nourished, in no acute distress Head: normocephalic and atraumatic Eyes: EOM intact, sclera clear, no icterus noted Neck: supple with no JVD o r tracheal deviation, no carotid bruits noted Lungs: good inspiration upon command with no difficulties, no labored breathing such as retractions noted, clear breath sounds bilaterally, no rales/rhonc hi/wheezing noted Heart: nornal heart sounds, regular rate, no rubs/clicks/murmurs noted, normal size and location by auscultation Abdomen: soft but tender in right upper quadrant, positive Littlejohn's sign, obese, decreased bowel sounds Extremities: no calf tenderness noted Psych: calm and appropriate Impression AND Recommendations: Problem # 1: Calculus of gallbladder with acute cholecystitis ( ICD-574.0) I have discussed above with patient and her who is present with her. Will plan proceeding to surgery of laparoscopic cholecystectomy. I have explained the procedure to the patient, possible cholangiogram also. Patient has been counseled to the risks/benefits of the procedure. I have explained the risks of the surgery, including but not limited to: infection, bleeding, injury to any intraabdominal organs, injury to bowel/bladder, injury to any blood vessels/nerves, injury to biliary ducts and common bile duct, bile leak, scar tissue, intraabominal abscess, trocar hernias, wou nd infections, etc. the patient understands. She agrees to proceed. I have answered all of the patient's questions to her satisfaction and she has no further questions 02/02/15 1159 <Aminah ctronically signed by Vi Sanchez MD> Date Vi Sanchez MD CC: Michelle Reaves MD; Vi Sanchez MD Signed 01-Feb-2015 Gallbladder Result: Comments: See Note; NOTES: [facility] Imaging Services [address] [place] [address] Ultrasound Report MR#: [id number] Acct: [id number] Name: SANDRA RATLIFF Rep #: [id number] : 1980 F 34 From: Deonte Woods DO PCP: Michelle Reaves MD Status: REG CLI Study: Gallbladder Date of Exam: 02/01/15 Exam# [id number] Ordering Dr: Michelle Reaves MD STUDY: ABDOMINAL U LTRASOUND - RIGHT UPPER QUADRANT REASON FOR VISIT: Female, 34 years old. Severe right upper quadrant pain for one day. TECHNIQUE: Ultrasound evaluation of the right upper quadrant was performed wi th real-time and static kay-scale imaging. TECHNICAL QUALITY: Adequate. COMPARISON: None. FINDINGS: Liver: The liver measures 17.9 cm. There is normal echog enicity of the liver. The bile ducts are within normal limits. There is hepatic color flow. The direction of portal flow is hepatopetal. There is no demonstrated mass lesion. Gallbladder: Mildly di stended gallbladder. The gallbladder wall measures 3.0 mm. There is edema of the gallbladder wall. There is a positive sonographic Littlejohn's sign. There is no pericholecystic fluid. There are multiple echogenic structures within the gallbladder, consistent with multiple gallstones. Common Bile Duct (C.B.D.): The common bile duct measures 7 mm. Pancreas: Normal size of the head, body and tail of the pancreas. The distal tail is obscured by bowel gas. There is normal echogenicity of the pancreas. There is no demonstrated pancreatic mass or cyst. Right Kidney: Normal size of the right kidney . The right kidney measures 12.4 cm. Normal renal cortex. The right cortex measures 1.0 cm. There is no demonstrated renal mass or cyst. There is no right hydronephrosis. IMPRESSION: Gallstones in mildly distended gallbladder with edematous wall with positive Littlejohn's sign. The findings suggest acute cholecystitis. N.B. : The above information has been verb ally conveyed by Deonte Woods DO to Michelle Reaves MD, Referring Physician, on 02/01/2015 17:24:35 (ET). Electronically Signed: Deonte Woods DO at 17:18 EDT Tel [phone], Service suppor t [phone], N.B. : The above information has been verbally conveyed by Deonte Woods DO to Michelle Reaves MD, Referring Physician, on 02/01/2015 17:24:35 (ET). CC: Michelle Reaves MD Family Services Worker: Signed 01-Feb-2015 Discharge Instruction Result: Comments: See Note; NOTES: [facility] Medical Records Department [address] [place] [address] Discharge Instruction 02/01/15 0534 MR#: [id number] Acct: [id number] Name: SANDRA RATLIFF Rep #: [id number] : 1980 34 From: Naldo Schaeffer MD PCP: Michelle Reaves MD Status: REG ER ED Disposition - Plan for ED Patient: Disposition: Home or Assisted [place] levi Chief Complaint: Abd Pain Instructions: ED Abdominal Pain, Unknown Cause, (Female) Prescriptions: ProMETHAzine [Phenergan] 25 mg PO Q6H PRN PRN #10 tablet PRN Reason: Nausea Dicyclomine HCl [Be ntyl] 20 mg PO TIDAC PRN #30 capsule PRN Reason: Abdominal Pain What to do if you have Problems For any increased pain, shortness of breath, bleeding, nausea or vomiting, chest pain, or any unex pected problems, contact your doctor. Call [facility] ([phone]) or report to the closest Emergency Room. Call 911 if necessary. 02/01/15 0535 <Electronically signed by Abdullahi Schaeffer MD> Date Naldo Schaeffer MD Cosigner Signature (If Indicated): Date CC: Michelle Reaves MD 18-Nov-2014 Initial Evaluation - OT Result: Comments: See Note; NOTES: [facility] Occupational Therapy [facility] [address] [place], [place] [address] Fax REHABILITATION SERV ICE INITIAL EVALUATION MR#: [id number] Acct: [id number] Name: SANDRA RATLIFF Rep #: [id number] : 1980 34 From: Bernarda De La Vega Referring Dr.: Ofe Jay DO Status: REG RCR Insu elly: [facility] Date: DATE OF SERVICE: PHYSICIAN: Ofe Jay DO SUBJECTIVE: This 34-year-old female was seen for initial occupational therapy evaluation on November 11, 2014. The patient was referred with a diagnosis of a flexor carpi ulnaris strain on right side. The patient states she began having symptoms of April 2014. She states has not found any better even w earing a brace during the day. She states she does a lot of typing. 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 The patient is right-hand dominant. OBJECTIVE MEASUREMENTS: Right wrist flexion 35, left 7 5. Right wrist extension 45, left 75. Right radial deviation 30 and left 35. Right ulnar deviation 10, left 30. Right manager call center strength is 35 pounds, left is 70 pounds. Right lateral pinch is 12 pounds, l eft is 19 pounds. Right tripod pinch is 14, left is 22 pounds. The patient with right handed. She reported a slight increase in pain. The patient denies numbness and tingling at this time. She states the pain increases as she uses it. Today, she reports 1-2 on a 0-10 point scale; however with use, she states pain can sometimes increase to 7 on a 0-10 point scale. ADLs: She reports she is indep endent with all aspects of activities of daily living. She does have a 4-year-old son. The pain does make it difficult to perform some daily tasks, taking care of him. GOALS: 1. The patient will de monstrate an increase in right wrist functional range of motion equal to left by discharge. 2. The patient will demonstrate increase in right manager call center strength to 65 pounds or greater to independently op en jars lids, bottle tops by discharge. 3. The patient will report the pain with use no greater than 2 on a 0-10 point scale for daily occupations and caring for her son. TREATMENT PLAN: I plan to see the patient 2-3 times a week for the next 3-4 weeks. Treatment will include ultrasound, progressive resistive strengthening when appropriate, and passive and active range of motion. Home exercise program will be designed to meet the patient's needs and demonstrate level of understanding. Bernarda De La Vega OTR/L T: EMILY JOB: [id number] <Electronically signed by Bernarda De La Vega & #[id number]; 11/18/14 0927 CC: Signed For Medicare only, by signing this I certify the plan of care. Physicians Signature Date 04-Nov-2014 Wrist min 3 Views Result: Comments: See Note; NOTES: [facility] Imaging Services [address] [place] [address] Radiology Report MR#: [id number] Acct: [id number] Name: SANDRA RATLIFF Rep #: [id number] : 1980 F 34 From: Catrachito Wren MD PCP: Michelle Reaves MD Status: REG CLI Study: Wrist min 3 Views Date of Exam: 11/04/14 Exam# [id number] Ordering Dr: Ofe Jay DO STUDY: X-RA Y - RIGHT WRIST REASON FOR EXAM: Female, 34 years old. Lateral wrist pain. TECHNIQUE: 3 view(s) of the wrist were obtained. COMPARISON: None. FINDINGS: Norm al visualized distal radius and ulna. Normal radiocarpal articulation. Normal distal radioulnar articulation. Normal carpal bones. Normal carpal articulations. Normal carpometacarpal articulation of the thumb. Normal second through fifth carpometacarpal articulations. Normal visualized metacarpal bones. The soft tissue structures are unremarkable. IMPRES EAMON: Normal x-ray examination of the wrist. Electronically Signed: Catrachito Wren MD at 14:57 EDT , Service support [phone], RAD/Wrist min 3 Views IMPRESSION: Normal x-ray examination of the wrist. Electronically Signed: Catrachito Wren MD at 14:57 EDT , Service support [phone], Fax CC: Ofe Jay DO; Michelle Reaves MD Family Services Worker: Signed Immunization Name Dates Details Tdap (7 years and up) on: 30-Jun-2017 Comments: [facility] Family History Unknown Family Member Name Dates Details Brother 1 Comments: healthy Status: Active Father Comments: hx. [place] (age 50) CABGx3, heart disease Status: Active maternal aunt breast cancer 50 yo Status: Active maternal aunt pancreatic cancer 49 yo Status: Active Maternal Grandfather Comments: Alzheimer's , prostate cancer in [place], borderline diabetic. Status: Active Maternal Grandmother Comments: hx. angioplasty living Status: Active Mother Comments: ESRD, Gabriel's, hx. kidney transplant, osteoporosis, hypothyroid Status: Active Paternal Grandfather Comments: black lung disease Status: Active Paternal Grandmother Comments: heart disease, age 69 Status: Active Sister 1 Comments: healthy Status: Active Social History Name Dates Details Alcohol Use: Occasional alcohol use. 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 [employer] [phone] Status: Active Exercise History: Exercises occasionally. Comments: get 4000 steps a day Status: Active Living Situation: Lives with spouse. Comments: spouse nayeli shah dtr Status: Active No Drug Use Status: Active Non Smoker/No Tobacco Use Status: Active Tobacco use: Never smoker. Status: Active Tobacco use: Never smoker. Status: Inactive Smoking Status Name Dates Details Never smoker Vital Signs Date Test Result Details :07 Temperature 98 f Comments: Method: Temporal Pulse 90 /min Comments: Pattern: Regular Respiration Rate 20 /min Comments: Pattern: Unlabored O2 SAT 98 % Comments: Room air BP Systolic 124 mm[Hg] Comments: Patient Position: Sitting; Cuff Location: Left Arm; Cuff Size: Large BP Diastolic 80 mm[Hg] Comments: Patient Position: Sitting; Cuff Location: Left Arm; Cuff Size: Large Weight 329 lb Height 69 in Body Mass Index Calculated 48.58 kg/m2 Body Surface Area Calculated 2.55 m2 :17 Temperature 97.9 f Comments: Method: Temporal Pulse 84 /min Comments: Pattern: Regular Respiration Rate 20 /min Comments: Pattern: Unlabored O2 SAT 98 % Comments: Room air BP Systolic 124 mm[Hg] Comments: Patient Position: Sitting; Cuff Location: Left Arm; Cuff Size: Large BP Diastolic 80 mm[Hg] Comments: Patient Position: Sitting; Cuff Location: Left Arm; Cuff Size: Large Weight 329 lb Height 69 in Body Mass Index Calculated 48.58 kg/m2 Body Surface Area Calculated 2.55 m2 :44 Temperature 97.1 f Comments: Method: Temporal Pulse 84 /min Comments: Pattern: Regular Respiration Rate 20 /min Comments: Pattern: Unlabored O2 SAT 97 % Comments: Room air BP Systolic 126 mm[Hg] Comments: Patient Position: Sitting; Cuff Location: Left Arm; Cuff Size: Standard BP Diastolic 78 mm[Hg] Comments: Patient Position: Sitting; Cuff Location: Left Arm; Cuff Size: Standard Weight 329 lb Height 69 in Body Mass Index Calculated 48.58 kg/m2 Body Surface Area Calculated 2.55 m2 :07 Pulse 71 /min Comments: Pattern: Regular Respiration Rate 18 /min Comments: Pattern: Unlabored O2 SAT 97 % Comments: Room air BP Systolic 138 mm[Hg] Comments: Patient Position: Sitting; Cuff Location: Left Arm; Cuff Size: Standard BP Diastolic 78 mm[Hg] Comments: Patient Position: Sitting; Cuff Location: Left Arm; Cuff Size: Standard Weight 329 lb Height 69 in Body Mass Index Calculated 48.58 kg/m2 Body Surface Area Calculated 2.55 m2 :03 Pulse 82 /min Comments: Pattern: Regular Respiration Rate 16 /min Comments: Pattern: Unlabored O2 SAT 98 % Comments: Room air BP Systolic 122 mm[Hg] Comments: Patient Position: Sitting; Cuff Location: Left Arm; Cuff Size: Standard BP Diastolic 70 mm[Hg] Comments: Patient Position: Sitting; Cuff Location: Left Arm; Cuff Size: Standard Weight 324 lb Height 69 in Body Mass Index Calculated 47.85 kg/m2 Body Surface Area Calculated 2.54 m2 :54 Temperature 97.6 f Comments: Method: Temporal Pulse 76 /min Comments: Pattern: Regular Respiration Rate 20 /min Comments: Pattern: Unlabored O2 SAT 98 % Comments: Room air BP Systolic 126 mm[Hg] Comments: Patient Position: Sitting; Cuff Location: Left Arm; Cuff Size: Large BP Diastolic 78 mm[Hg] Comments: Patient Position: Sitting; Cuff Location: Left Arm; Cuff Size: Large Weight 324 lb Height 69 in Body Mass Index Calculated 47.85 kg/m2 Body Surface Area Calculated 2.54 m2 :42 Temperature 96.8 f Comments: Method: Temporal Pulse 88 /min Comments: Pattern: Regular Respiration Rate 16 /min Comments: Pattern: Unlabored O2 SAT 97 % Comments: Room air BP Systolic 136 mm[Hg] Comments: Patient Position: Sitting; Cuff Location: Left Arm; Cuff Size: Large BP Diastolic 92 mm[Hg] Comments: Patient Position: Sitting; Cuff Location: Left Arm; Cuff Size: Large Weight 320 lb Height 69 in Body Mass Index Calculated 47.26 kg/m2 Body Surface Area Calculated 2.52 m2 :12 BP Systolic 138 mm[Hg] Comments: Patient Position: Sitting; Cuff Location: Left Arm; Cuff Size: Standard BP Diastolic 82 mm[Hg] Comments: Patient Position: Sitting; Cuff Location: Left Arm; Cuff Size: Standard :18 Temperature 97.6 f Comments: Method: Temporal Pulse 78 /min Comments: Pattern: Regular Respiration Rate 20 /min Comments: Pattern: Unlabored O2 SAT 97 % Comments: Room air BP Systolic 126 mm[Hg] Comments: Patient Position: Sitting; Cuff Location: Left Arm; Cuff Size: Large BP Diastolic 100 mm[Hg] Comments: Patient Position: Sitting; Cuff Location: Left Arm; Cuff Size: Large Weight 320 lb Height 69 in Body Mass Index Calculated 47.26 kg/m2 Body Surface Area Calculated 2.52 m2 :01 Temperature 97 f Comments: Method: Temporal Pulse 82 /min Comments: Pattern: Regular Respiration Rate 20 /min Comments: Pattern: Unlabored O2 SAT 98 % Comments: Room air BP Systolic 134 mm[Hg] Comments: Patient Position: Sitting; Cuff Location: Left Arm; Cuff Size: Large BP Diastolic 90 mm[Hg] Comments: Patient Position: Sitting; Cuff Location: Left Arm; Cuff Size: Large Weight 318 lb Height 69 in Body Mass Index Calculated 46.96 kg/m2 Body Surface Area Calculated 2.52 m2 :05 Temperature 97.9 f Comments: Method: Oral Pulse 95 /min Comments: Pattern: Regular Respiration Rate 16 /min Comments: Pattern: Unlabored O2 SAT 97 % Comments: Room air BP Systolic 132 mm[Hg] Comments: Patient Position: Sitting; Cuff Location: Left Arm; Cuff Size: Standard BP Diastolic 78 mm[Hg] Comments: Patient Position: Sitting; Cuff Location: Left Arm; Cuff Size: Standard Weight 312 lb Height 69 in Body Mass Index Calculated 46.07 kg/m2 Body Surface Area Calculated 2.5 m2 :13 Weight 312 lb Height 69 in Body Mass Index Calculated 46.07 kg/m2 Body Surface Area Calculated 2.5 m2 :33 Pulse 71 /min Comments: Pattern: Regular Respiration Rate 16 /min Comments: Pattern: Unlabored BP Systolic 132 mm[Hg] Comments: Patient Position: Sitting; Cuff Location: Left Arm; Cuff Size: Standard BP Diastolic 80 mm[Hg] Comments: Patient Position: Sitting; Cuff Location: Left Arm; Cuff Size: Standard Weight 321 lb Height 69 in Body Mass Index Calculated 47.4 kg/m2 Body Surface Area Calculated 2.53 m2 :58 Temperature 97.9 f Comments: Method: Temporal Pulse 90 /min Comments: Pattern: Regular Respiration Rate 20 /min Comments: Pattern: Unlabored O2 SAT 97 % Comments: Room air BP Systolic 126 mm[Hg] Comments: Patient Position: Sitting; Cuff Location: Left Arm; Cuff Size: Large BP Diastolic 80 mm[Hg] Comments: Patient Position: Sitting; Cuff Location: Left Arm; Cuff Size: Large Weight 311 lb Height 69 in Body Mass Index Calculated 45.93 kg/m2 Body Surface Area Calculated 2.49 m2 :45 Temperature 97.8 f Comments: Method: Temporal Pulse 94 /min Comments: Pattern: Regular Respiration Rate 20 /min Comments: Pattern: Unlabored O2 SAT 98 % Comments: Room air BP Systolic 140 mm[Hg] Comments: Patient Position: Sitting; Cuff Location: Left Arm; Cuff Size: Large BP Diastolic 78 mm[Hg] Comments: Patient Position: Sitting; Cuff Location: Left Arm; Cuff Size: Large Weight 297 lb Height 69 in Body Mass Index Calculated 43.86 kg/m2 Body Surface Area Calculated 2.44 m2 :32 Temperature 97.6 f Comments: Method: Temporal Pulse 90 /min Comments: Pattern: Regular Respiration Rate 24 /min Comments: Pattern: Unlabored O2 SAT 98 % Comments: Room air BP Systolic 128 mm[Hg] Comments: Patient Position: Sitting; Cuff Location: Left Arm; Cuff Size: Large BP Diastolic 84 mm[Hg] Comments: Patient Position: Sitting; Cuff Location: Left Arm; Cuff Size: Large Weight 297 lb Height 69 in Body Mass Index Calculated 43.86 kg/m2 Body Surface Area Calculated 2.44 m2 :21 Temperature 97.6 f Comments: Method: Temporal Pulse 94 /min Comments: Pattern: Regular Respiration Rate 22 /min Comments: Pattern: Unlabored O2 SAT 98 % Comments: Room air BP Systolic 126 mm[Hg] Comments: Patient Position: Sitting; Cuff Location: Left Arm; Cuff Size: Large BP Diastolic 90 mm[Hg] Comments: Patient Position: Sitting; Cuff Location: Left Arm; Cuff Size: Large Weight 297 lb Height 69 in Body Mass Index Calculated 43.86 kg/m2 Body Surface Area Calculated 2.44 m2 :56 Temperature 97.2 f Comments: Method: Temporal Pulse 76 /min Comments: Pattern: Regular Respiration Rate 20 /min Comments: Pattern: Unlabored O2 SAT 97 % Comments: Room air BP Systolic 120 mm[Hg] Comments: Patient Position: Sitting; Cuff Location: Left Arm; Cuff Size: Large BP Diastolic 80 mm[Hg] Comments: Patient Position: Sitting; Cuff Location: Left Arm; Cuff Size: Large Weight 297 lb Height 69 in Body Mass Index Calculated 43.86 kg/m2 Body Surface Area Calculated 2.44 m2 :39 Temperature 97.6 f Comments: Method: Temporal Pulse 74 /min Comments: Pattern: Regular Respiration Rate 20 /min Comments: Pattern: Unlabored O2 SAT 98 % Comments: Room air BP Systolic 120 mm[Hg] Comments: Patient Position: Sitting; Cuff Location: Left Arm; Cuff Size: Large BP Diastolic 80 mm[Hg] Comments: Patient Position: Sitting; Cuff Location: Left Arm; Cuff Size: Large Weight 303 lb Height 69 in Body Mass Index Calculated 44.74 kg/m2 Body Surface Area Calculated 2.46 m2 :32 Temperature 97.9 f Comments: Method: Temporal Pulse 78 /min Comments: Pattern: Regular Respiration Rate 20 /min Comments: Pattern: Unlabored O2 SAT 98 % Comments: Room air BP Systolic 124 mm[Hg] Comments: Patient Position: Sitting; Cuff Location: Left Arm; Cuff Size: Large BP Diastolic 84 mm[Hg] Comments: Patient Position: Sitting; Cuff Location: Left Arm; Cuff Size: Large Weight 296 lb Height 69 in Body Mass Index Calculated 43.71 kg/m2 Body Surface Area Calculated 2.44 m2 :42 Temperature 97.6 f Comments: Method: Temporal Pulse 80 /min Comments: Pattern: Regular Respiration Rate 18 /min Comments: Pattern: Unlabored O2 SAT 97 % Comments: Room air BP Systolic 126 mm[Hg] Comments: Patient Position: Sitting; Cuff Location: Left Arm; Cuff Size: Large BP Diastolic 84 mm[Hg] Comments: Patient Position: Sitting; Cuff Location: Left Arm; Cuff Size: Large Weight 296 lb Height 69 in Body Mass Index Calculated 43.71 kg/m2 Body Surface Area Calculated 2.44 m2 :27 Temperature 97.6 f Comments: Method: Temporal Pulse 74 /min Comments: Pattern: Regular Respiration Rate 20 /min Comments: Pattern: Unlabored O2 SAT 98 % Comments: Room air BP Systolic 120 mm[Hg] Comments: Patient Position: Sitting; Cuff Location: Left Arm; Cuff Size: Large BP Diastolic 80 mm[Hg] Comments: Patient Position: Sitting; Cuff Location: Left Arm; Cuff Size: Large Weight 293 lb Height 69 in Body Mass Index Calculated 43.27 kg/m2 Body Surface Area Calculated 2.43 m2 :25 Pulse 90 /min Comments: Pattern: Regular Respiration Rate 16 /min Comments: Pattern: Unlabored O2 SAT 98 % Comments: Room air BP Systolic 132 mm[Hg] Comments: Patient Position: Sitting; Cuff Location: Left Arm; Cuff Size: Standard BP Diastolic 80 mm[Hg] Comments: Patient Position: Sitting; Cuff Location: Left Arm; Cuff Size: Standard Weight 294 lb Height 69 in Body Mass Index Calculated 43.42 kg/m2 Body Surface Area Calculated 2.43 m2 :00 Temperature 97.8 f Comments: Method: Temporal Pulse 80 /min Comments: Pattern: Regular Respiration Rate 20 /min Comments: Pattern: Unlabored O2 SAT 97 % Comments: Room air BP Systolic 124 mm[Hg] Comments: Patient Position: Sitting; Cuff Location: Left Arm; Cuff Size: Large BP Diastolic 84 mm[Hg] Comments: Patient Position: Sitting; Cuff Location: Left Arm; Cuff Size: Large Weight 289 lb Height 69 in Body Mass Index Calculated 42.68 kg/m2 Body Surface Area Calculated 2.42 m2 :17 Temperature 97.2 f Pulse 97 /min Comments: Pattern: Regular Respiration Rate 16 /min Comments: Pattern: Unlabored O2 SAT 98 % Comments: Room air BP Systolic 122 mm[Hg] Comments: Patient Position: Sitting; Cuff Location: Left Arm; Cuff Size: Standard BP Diastolic 82 mm[Hg] Comments: Patient Position: Sitting; Cuff Location: Left Arm; Cuff Size: Standard Weight 280 lb Height 69 in Body Mass Index Calculated 41.35 kg/m2 Body Surface Area Calculated 2.38 m2 :42 Temperature 98.2 f Pulse 111 /min Comments: Pattern: Regular Respiration Rate 16 /min Comments: Pattern: Unlabored O2 SAT 96 % Comments: Room air BP Systolic 118 mm[Hg] Comments: Patient Position: Sitting; Cuff Location: Left Arm; Cuff Size: Standard BP Diastolic 82 mm[Hg] Comments: Patient Position: Sitting; Cuff Location: Left Arm; Cuff Size: Standard Weight 280 lb Height 69 in Body Mass Index Calculated 41.35 kg/m2 Body Surface Area Calculated 2.38 m2 :00 Temperature 98.2 f Pulse 116 /min Comments: Pattern: Regular Respiration Rate 18 /min Comments: Pattern: Unlabored O2 SAT 98 % Comments: Room air BP Systolic 124 mm[Hg] Comments: Patient Position: Sitting; Cuff Location: Left Arm; Cuff Size: Standard BP Diastolic 78 mm[Hg] Comments: Patient Position: Sitting; Cuff Location: Left Arm; Cuff Size: Standard Weight 276 lb Height 69 in Body Mass Index Calculated 40.76 kg/m2 Body Surface Area Calculated 2.37 m2 :23 Temperature 97.5 f Comments: Method: Temporal Pulse 76 /min Comments: Pattern: Regular Respiration Rate 18 /min Comments: Pattern: Unlabored O2 SAT 98 % Comments: Room air BP Systolic 122 mm[Hg] Comments: Patient Position: Sitting; Cuff Location: Left Arm; Cuff Size: Large BP Diastolic 78 mm[Hg] Comments: Patient Position: Sitting; Cuff Location: Left Arm; Cuff Size: Large Weight 276 lb Height 69 in Body Mass Index Calculated 40.76 kg/m2 Body Surface Area Calculated 2.37 m2 :45 Temperature 97.6 f Comments: Method: Temporal Pulse 92 /min Comments: Pattern: Regular Respiration Rate 18 /min Comments: Pattern: Unlabored O2 SAT 97 % Comments: Room air BP Systolic 124 mm[Hg] Comments: Patient Position: Sitting; Cuff Location: Left Arm; Cuff Size: Large BP Diastolic 86 mm[Hg] Comments: Patient Position: Sitting; Cuff Location: Left Arm; Cuff Size: Large Weight 276 lb Height 69 in Body Mass Index Calculated 40.76 kg/m2 Body Surface Area Calculated 2.37 m2 :31 Temperature 97.9 f Comments: Method: Oral Pulse 90 /min Comments: Pattern: Regular Respiration Rate 16 /min Comments: Pattern: Unlabored O2 SAT 98 % Comments: Room air BP Systolic 138 mm[Hg] Comments: Patient Position: Sitting; Cuff Location: Left Arm; Cuff Size: Standard BP Diastolic 84 mm[Hg] Comments: Patient Position: Sitting; Cuff Location: Left Arm; Cuff Size: Standard Weight 276.8 lb Height 69 in Body Mass Index Calculated 40.88 kg/m2 Body Surface Area Calculated 2.37 m2 :07 Comments: recheck BP after GI cocktail 112/72 Temperature 98.7 f Comments: Method: Temporal Pulse 86 /min Comments: Pattern: Regular Respiration Rate 16 /min Comments: Pattern: Unlabored O2 SAT 98 % Comments: Room air BP Systolic 126 mm[Hg] Comments: Patient Position: Sitting; Cuff Location: Left Arm; Cuff Size: Standard BP Diastolic 74 mm[Hg] Comments: Patient Position: Sitting; Cuff Location: Left Arm; Cuff Size: Standard Weight 276.8 lb Height 69 in Body Mass Index Calculated 40.88 kg/m2 Body Surface Area Calculated 2.37 m2 :17 Temperature 97.2 f Comments: Method: Temporal Pulse 74 /min Comments: Pattern: Regular Respiration Rate 20 /min Comments: Pattern: Unlabored O2 SAT 98 % Comments: Room air BP Systolic 116 mm[Hg] Comments: Patient Position: Sitting; Cuff Location: Left Arm; Cuff Size: Large BP Diastolic 74 mm[Hg] Comments: Patient Position: Sitting; Cuff Location: Left Arm; Cuff Size: Large Weight 267 lb Height 69 in Body Mass Index Calculated 39.43 kg/m2 Body Surface Area Calculated 2.34 m2 :50 Temperature 98.1 f Comments: Method: Oral Pulse 80 /min Comments: Pattern: Regular Respiration Rate 18 /min O2 SAT 98 % Comments: Room air BP Systolic 120 mm[Hg] Comments: Patient Position: Sitting; Cuff Location: Left Arm; Cuff Size: Standard BP Diastolic 76 mm[Hg] Comments: Patient Position: Sitting; Cuff Location: Left Arm; Cuff Size: Standard Weight 258 lb Height 69 in Body Mass Index Calculated 38.1 kg/m2 Body Surface Area Calculated 2.3 m2 :26 Temperature 97.6 f Comments: Method: Temporal Pulse 70 /min Comments: Pattern: Regular Respiration Rate 20 /min Comments: Pattern: Unlabored BP Systolic 114 mm[Hg] Comments: Patient Position: Sitting; Cuff Location: Left Arm; Cuff Size: Large BP Diastolic 74 mm[Hg] Comments: Patient Position: Sitting; Cuff Location: Left Arm; Cuff Size: Large Weight 258 lb Height 69 in Body Mass Index Calculated 38.1 kg/m2 Body Surface Area Calculated 2.3 m2 :51 Temperature 96.9 f Pulse 68 /min Comments: Pattern: Regular Respiration Rate 16 /min Comments: Pattern: Unlabored BP Systolic 102 mm[Hg] Comments: Patient Position: Sitting; Cuff Location: Left Arm; Cuff Size: Large BP Diastolic 70 mm[Hg] Comments: Patient Position: Sitting; Cuff Location: Left Arm; Cuff Size: Large Weight 275 lb Height 69 in Body Mass Index Calculated 40.61 kg/m2 Body Surface Area Calculated 2.37 m2 :36 Temperature 97.8 f Comments: Method: Oral Pulse 74 /min Comments: Pattern: Regular Respiration Rate 20 /min Comments: Pattern: Unlabored BP Systolic 120 mm[Hg] Comments: Patient Position: Sitting; Cuff Location: Left Arm; Cuff Size: Standard BP Diastolic 74 mm[Hg] Comments: Patient Position: Sitting; Cuff Location: Left Arm; Cuff Size: Standard Weight 275 lb Height 69 in Body Mass Index Calculated 40.61 kg/m2 Body Surface Area Calculated 2.37 m2 :49 Temperature 98.2 f Comments: Method: Temporal Pulse 82 /min Comments: Pattern: Regular Respiration Rate 16 /min Comments: Pattern: Unlabored O2 SAT 98 % Comments: Room air BP Systolic 124 mm[Hg] Comments: Patient Position: Sitting; Cuff Location: Left Arm; Cuff Size: Standard BP Diastolic 76 mm[Hg] Comments: Patient Position: Sitting; Cuff Location: Left Arm; Cuff Size: Standard Weight 293 lb Height 69 in Body Mass Index Calculated 43.27 kg/m2 Body Surface Area Calculated 2.43 m2 :06 Temperature 97.6 f Comments: Method: Oral Pulse 74 /min Comments: Pattern: Regular Respiration Rate 20 /min Comments: Pattern: Unlabored BP Systolic 126 mm[Hg] Comments: Patient Position: Sitting; Cuff Location: Left Arm; Cuff Size: Large BP Diastolic 78 mm[Hg] Comments: Patient Position: Sitting; Cuff Location: Left Arm; Cuff Size: Large Weight 291 lb Height 69 in Body Mass Index Calculated 42.97 kg/m2 Body Surface Area Calculated 2.42 m2 :45 Temperature 98.2 f Comments: Method: Oral Pulse 74 /min Comments: Pattern: Regular Respiration Rate 20 /min Comments: Pattern: Unlabored BP Systolic 126 mm[Hg] Comments: Patient Position: Sitting; Cuff Location: Left Arm; Cuff Size: Large BP Diastolic 74 mm[Hg] Comments: Patient Position: Sitting; Cuff Location: Left Arm; Cuff Size: Large Weight 288 lb Height 69 in Body Mass Index Calculated 42.53 kg/m2 Body Surface Area Calculated 2.41 m2 :05 Temperature 97.8 f Comments: Method: Temporal Pulse 87 /min Comments: Pattern: Regular Respiration Rate 16 /min Comments: Pattern: Unlabored O2 SAT 97 % Comments: Room air BP Systolic 124 mm[Hg] Comments: Patient Position: Sitting; Cuff Location: Left Arm; Cuff Size: Standard BP Diastolic 72 mm[Hg] Comments: Patient Position: Sitting; Cuff Location: Left Arm; Cuff Size: Standard Weight 287 lb Height 69 in Body Mass Index Calculated 42.38 kg/m2 Body Surface Area Calculated 2.41 m2 [id number]-Mtm-[id number]:50 Temperature 97.4 f Comments: Method: Temporal Pulse 79 /min Comments: Pattern: Regular Respiration Rate 16 /min Comments: Pattern: Unlabored O2 SAT 98 % Comments: Room air BP Systolic 134 mm[Hg] Comments: Patient Position: Sitting; Cuff Location: Left Arm; Cuff Size: Standard BP Diastolic 76 mm[Hg] Comments: Patient Position: Sitting; Cuff Location: Left Arm; Cuff Size: Standard Weight 287 lb Height 69 in Body Mass Index Calculated 42.38 kg/m2 Body Surface Area Calculated 2.41 m2 :23 Temperature 97.8 f Comments: Method: Oral Pulse 74 /min Comments: Pattern: Regular Respiration Rate 20 /min Comments: Pattern: Unlabored BP Systolic 126 mm[Hg] Comments: Patient Position: Sitting; Cuff Location: Left Arm; Cuff Size: Standard BP Diastolic 90 mm[Hg] Comments: Patient Position: Sitting; Cuff Location: Left Arm; Cuff Size: Standard Weight 287 lb Height 69 in Body Mass Index Calculated 42.38 kg/m2 Body Surface Area Calculated 2.41 m2 :10 Temperature 97.8 f Comments: Method: Oral Pulse 72 /min Comments: Pattern: Regular Respiration Rate 20 /min Comments: Pattern: Unlabored BP Systolic 118 mm[Hg] Comments: Patient Position: Sitting; Cuff Location: Left Arm; Cuff Size: Large BP Diastolic 74 mm[Hg] Comments: Patient Position: Sitting; Cuff Location: Left Arm; Cuff Size: Large Weight 277 lb Height 69 in Body Mass Index Calculated 40.91 kg/m2 Body Surface Area Calculated 2.37 m2 :01 Temperature 98.8 f Comments: Method: Oral Pulse 76 /min Comments: Pattern: Regular Respiration Rate 20 /min Comments: Pattern: Unlabored BP Systolic 120 mm[Hg] Comments: Patient Position: Sitting; Cuff Location: Left Arm; Cuff Size: Large BP Diastolic 62 mm[Hg] Comments: Patient Position: Sitting; Cuff Location: Left Arm; Cuff Size: Large Weight 275 lb Height 69 in Body Mass Index Calculated 40.61 kg/m2 Body Surface Area Calculated 2.37 m2 :27 Temperature 97.9 f Comments: Method: Oral Pulse 72 /min Comments: Pattern: Regular Respiration Rate 20 /min Comments: Pattern: Unlabored BP Systolic 124 mm[Hg] Comments: Patient Position: Sitting; Cuff Location: Left Arm; Cuff Size: Standard BP Diastolic 78 mm[Hg] Comments: Patient Position: Sitting; Cuff Location: Left Arm; Cuff Size: Standard Weight 269 lb Height 69 in Body Mass Index Calculated 39.72 kg/m2 Body Surface Area Calculated 2.34 m2 :56 Temperature 97.9 f Comments: Method: Oral Pulse 70 /min Comments: Pattern: Regular Respiration Rate 20 /min Comments: Pattern: Unlabored BP Systolic 130 mm[Hg] Comments: Patient Position: Sitting; Cuff Location: Left Arm; Cuff Size: Large BP Diastolic 80 mm[Hg] Comments: Patient Position: Sitting; Cuff Location: Left Arm; Cuff Size: Large Weight 269 lb Height 69 in Body Mass Index Calculated 39.72 kg/m2 Body Surface Area Calculated 2.34 m2 :41 Temperature 98.1 f Comments: Method: Oral Pulse 84 /min Comments: Pattern: Regular Respiration Rate 16 /min Comments: Pattern: Unlabored BP Systolic 142 mm[Hg] Comments: Patient Position: Sitting; Cuff Location: Left Arm; Cuff Size: Large BP Diastolic 94 mm[Hg] Comments: Patient Position: Sitting; Cuff Location: Left Arm; Cuff Size: Large Weight 274 lb Height 69 in Body Mass Index Calculated 40.46 kg/m2 Body Surface Area Calculated 2.36 m2 :18 Comments: BPs at home -- 130-139/79-90 Temperature 98 f Comments: Method: Oral Pulse 78 /min Comments: Pattern: Regular Respiration Rate 16 /min Comments: Pattern: Unlabored BP Systolic 128 mm[Hg] Comments: Patient Position: Sitting; Cuff Location: Left Arm; Cuff Size: Large BP Diastolic 76 mm[Hg] Comments: Patient Position: Sitting; Cuff Location: Left Arm; Cuff Size: Large Weight 249 lb Height 69 in Body Mass Index Calculated 36.77 kg/m2 Body Surface Area Calculated 2.27 m2 :42 Temperature 97.3 f Comments: Method: Oral Pulse 92 /min Comments: Pattern: Regular Respiration Rate 16 /min O2 SAT 97 % Comments: Room air BP Systolic 140 mm[Hg] Comments: Patient Position: Sitting; Cuff Location: Left Arm; Cuff Size: Standard BP Diastolic 94 mm[Hg] Comments: Patient Position: Sitting; Cuff Location: Left Arm; Cuff Size: Standard Weight 249 lb Height 69 in Body Mass Index Calculated 36.77 kg/m2 Body Surface Area Calculated 2.27 m2 :08 Temperature 98.1 f Comments: Method: Oral Pulse 64 /min Comments: Pattern: Regular Respiration Rate 18 /min Comments: Pattern: Unlabored BP Systolic 136 mm[Hg] Comments: Patient Position: Sitting; Cuff Location: Left Arm; Cuff Size: Large BP Diastolic 84 mm[Hg] Comments: Patient Position: Sitting; Cuff Location: Left Arm; Cuff Size: Large Weight 249 lb Height 69 in Body Mass Index Calculated 36.77 kg/m2 Body Surface Area Calculated 2.27 m2 :38 Temperature 97.8 f Comments: Method: Oral Pulse 64 /min Comments: Pattern: Regular Respiration Rate 6 /min Comments: Pattern: Unlabored BP Systolic 122 mm[Hg] Comments: Patient Position: Sitting; Cuff Location: Left Arm; Cuff Size: Standard BP Diastolic 90 mm[Hg] Comments: Patient Position: Sitting; Cuff Location: Left Arm; Cuff Size: Standard Weight 249.0625 lb Height 69 in Body Mass Index Calculated 36.78 kg/m2 Body Surface Area Calculated 2.27 m2 :58 Temperature 98.5 f Comments: Method: Oral Pulse 86 /min Comments: Pattern: Regular Respiration Rate 17 /min Comments: Pattern: Unlabored BP Systolic 146 mm[Hg] Comments: Patient Position: Sitting; Cuff Location: Left Arm; Cuff Size: Standard BP Diastolic 88 mm[Hg] Comments: Patient Position: Sitting; Cuff Location: Left Arm; Cuff Size: Standard Weight 249.0625 lb Height 69 in Body Mass Index Calculated 36.78 kg/m2 Body Surface Area Calculated 2.27 m2 :05 Temperature 97.7 f Pulse 76 /min Comments: Pattern: Regular Respiration Rate 16 /min Comments: Pattern: Unlabored BP Systolic 106 mm[Hg] Comments: Patient Position: Sitting; Cuff Location: Left Arm; Cuff Size: Large BP Diastolic 74 mm[Hg] Comments: Patient Position: Sitting; Cuff Location: Left Arm; Cuff Size: Large Weight 249.0625 lb Height 69 in Body Mass Index Calculated 36.78 kg/m2 Body Surface Area Calculated 2.27 m2 :45 Pulse 66 /min Comments: Pattern: Regular Respiration Rate 18 /min Comments: Pattern: Unlabored BP Systolic 122 mm[Hg] Comments: Patient Position: Sitting; Cuff Location: Left Arm; Cuff Size: Standard BP Diastolic 74 mm[Hg] Comments: Patient Position: Sitting; Cuff Location: Left Arm; Cuff Size: Standard Weight 248.0625 lb Height 69 in Body Mass Index Calculated 36.63 kg/m2 Body Surface Area Calculated 2.26 m2 :18 Pulse 68 /min Comments: Pattern: Regular Respiration Rate 20 /min Comments: Pattern: Unlabored BP Systolic 122 mm[Hg] Comments: Patient Position: Sitting; Cuff Location: Left Arm; Cuff Size: Large BP Diastolic 82 mm[Hg] Comments: Patient Position: Sitting; Cuff Location: Left Arm; Cuff Size: Large Weight 248.0625 lb Height 69 in Body Mass Index Calculated 36.63 kg/m2 Body Surface Area Calculated 2.26 m2 :26 Temperature 97.3 f Comments: Method: Oral Pulse 72 /min Comments: Pattern: Regular Respiration Rate 20 /min Comments: Pattern: Unlabored BP Systolic 142 mm[Hg] Comments: Patient Position: Sitting; Cuff Location: Left Arm; Cuff Size: Large BP Diastolic 88 mm[Hg] Comments: Patient Position: Sitting; Cuff Location: Left Arm; Cuff Size: Large :09 Temperature 98.3 f Comments: Method: Oral Pulse 82 /min Comments: Pattern: Regular Respiration Rate 16 /min Comments: Pattern: Unlabored BP Systolic 122 mm[Hg] Comments: Patient Position: Sitting; Cuff Location: Left Arm; Cuff Size: Standard BP Diastolic 78 mm[Hg] Comments: Patient Position: Sitting; Cuff Location: Left Arm; Cuff Size: Standard :46 Pulse 80 /min Comments: Pattern: Regular Respiration Rate 16 /min Comments: Pattern: Unlabored BP Systolic 118 mm[Hg] Comments: Patient Position: Sitting; Cuff Location: Left Arm; Cuff Size: Large BP Diastolic 80 mm[Hg] Comments: Patient Position: Sitting; Cuff Location: Left Arm; Cuff Size: Large Weight 0 lb Height 0 in Head Circumference 0.00 cm Results Date Description Value Details :43 Allergen, Rast Food Profile Comments: [facility] (refer to report for specific site)refer to report for address and phone number; 04-11-18 RAST COMMENT Comment (Normal) Comments: Levels of Specific IgE Class Description of Class ----- < 0.10 0 Negative 0.10 - 0.31 0/I Equivocal/Low 0.32 - 0.55 I Low 0.56 - 1.40 II Moderate 1.41 - 3.90 III High 3.91 - 19.00 IV Very High 19.01 - 100.00 V Very High >100.00 Very High FISH/SHELL MIX Negative (Normal) Comments: Allergens in this mix are: Blue mussel Fish Warren Shrimp Tuna EGG, WHOLE <0.10 kU/L (Normal) CHOCOLATE <0.10 kU/L (Normal) Comments: Performed at: [address] [id number] Director: Davide Jordan MD, Phone: [phone] BEEF <0.10 kU/L (Normal) PORK <0.10 kU/L (Normal) SOYBEAN <0.10 kU/L (Normal) PEANUT <0.10 kU/L (Normal) CORN <0.10 kU/L (Normal) WHEAT <0.10 kU/L (Normal) MILK (COW) <0.10 kU/L (Normal) :43 CBC-Complete Blood Cnt No Diff Comments: [facility] [address] [place], [place], [phone] ; fu 10-5 DB MPV 10.0 fL (Normal) Range: 6.2-12.0 PLT 247 K/mm3 (Normal) Range: 150-450 RDW SD 39.9 fL (Normal) Range: 35.1-43.9 RDW CV 12.8 % (Normal) Range: 11.6-14.6 MCHC 34.1 {g/gl} (Normal) Range: 32-36 MCH 29.7 pg (Normal) Range: 27.0-32.0 MCV 87.0 fL (Normal) Range: 81-99 HCT 41.0 % (Normal) Range: 37-47 HGB 14.0 g/dL (Normal) Range: 12.0-15.0 RBC 4.71 {M/mm3} (Normal) Range: 4.2-5.4 WBC 10.1 K/mm3 (Normal) Range: 4.4-11.0 37-Vek-84560:43 Comprehensive Metabolic Profil Comments: [facility] [address] [place], [place], [phone] GAP 10 (Normal) Range: 5-15 CO2 27.0 mmol/L (Normal) Range: 21.0-32.0 CL 103 mmol/L (Normal) Range: 98-107 K 4.2 mmol/L (Normal) Range: 3.5-5.1 NA 140 mmol/L (Normal) Range: 136-145 T BILI 0.40 mg/dL (Normal) Range: 0.20-1.00 ALT 40 U/L (Normal) Range: 13-56 ALK P 85 U/L (Normal) Range: 45-117 AST 23 U/L (Normal) Range: 15-37 CA 8.9 mg/dL (Normal) Range: 8.5-10.1 A/G 0.8 {RATIO} (Abnormal) Range: 0.9-2.4 GLOB 3.9 g/dL (Normal) Range: 2.2-4.2 ALB 3.3 g/dL (Normal) Range: 3.2-5.0 T PROT 7.2 g/dL (Normal) Range: 6.4-8.2 BUN/CRE 13.7 {RATIO} (Normal) Range: 10-20 EST GFR - AA 93 mL/min (Normal) Comments: GFR Calc EST GFR 77 mL/min (Normal) Comments: Non- GFR Calc CREAT,SERUM 0.87 mg/dL (Normal) Range: 0.55-1.02 Comments: The validity of the calculated GFR AND GFRAA in patients over70 years has not been determined. Clinical correlation isessential. BUN 12 mg/dL (Normal) Range: 7-18 GLU 96 mg/dL (Normal) Range: 74-106 Comments: Please note revised GLUCOSE reference range wbyikraon49/02/2018. 12-Pfe-28736:43 T4 Free Direct Comments: [facility] [address] [place], [address] T4 FREE DIRECT 1.04 ng/dL (Normal) Range: 0.76-1.46 :43 Thyroid Stim Hormone (TSH) Comments: [facility] [address] [place], [id number] TSH 2.11 {uIU/mL} (Normal) Range: 0.358-3.74 :43 Vitamin D,25 Hydroxy Comments: [facility] [address] [place], [phone] Vitamin D 25-OH 30.2 ng/mL (Normal) Range: 29.95-100.01 Comments: Vitamin D 25(OH) Status Range Deficiency <20 ng/mL (50nmol/L) Insuffciency 20 - 30 ng/mL (50 - 75 nmol/L) Sufficiency 30 - 100 ng/mL (75 - 250 nmol/L) Toxicity >100 ng/mL (>250 nmol/L) 4-Cjk-231084:16 NuSwab Vaginitis Plus Comments: PATIENT NOT FASTINGPERFORMED BY: [address] [id number] Information: SRC:CE (trich/BV/GC/linda W/O Herpes) (55068) Neisseria gonorrhoeae, Negative (Normal) ROBERT Chlamydia trachomatis, Negative (Normal) ROBERT Trich vag by ROBERT Negative (Normal) Mercedes glabrata, ROBERT Negative (Normal) Comments: This test was developed and its performance characteristics determinedby [facility]. It has not been cleared or approved by the Food and DrugAdministration. The FDA has determined that such clearance orapproval is not necessary. Mercedes albicans, ROBERT Negative (Normal) Megasphaera 1 Low - 0 {Score} Comments: Calculate total score by adding the 3 individual bacterialvaginosis (BV) marker scores together. Total score isinterpreted as follows:Total score 0-1: Indicates the absence of BV.Total scor e 2: Indet (Normal) erminate for BV. Additional clinical data should be evaluated to establish a diagnosis.Total score 3-6: Indicates the presence of BV. .This test was developed and its performance characteristicsdetermined by [facility]. It has not been cleared or approvedby the Food and Drug Administration. The FDA has determinedthat such clearance or approval is not necessary. BVAB 2 Low - 0 {Score} (Normal) Atopobium vaginae Low - 0 {Score} (Normal) 7-Wlt-[id number]:16 HPV automatic Comments: Source.............Cervix;EndocervixNo. of containers..01 ThinPrep VialPATIENT NOT FASTINGPERFORMED BY: WB [facility] [address] [id number] BY: =G [facility] [place] ([id number]) [id number] [facility] W [id number] Information: [id number] HPV, high-risk Negative Comments: This high-risk HPV test detects thirteen high- risk types(16/18/31/33/35/39/45/51/52/56/58/59/68) without differentiation. . (Normal) Note: PAPSMR (Normal) Comments: The Pap smear is a screening test designed to aid in the detection ofpremalignant and malignant conditions of the uterine cervix. It is not adiagnostic procedure and should not be used as the sole mean s of detectingcervical cancer. Both false-positive and false-negative reports do occur. .This liquid based ThinPrep(R) pap test w as screened with theuse of an image guided system. See Note . (Normal) DIAGNOSIS: SPRCS (Normal) Comments: NEGATIVE FOR INTRAEPITHELIAL LESION AND MALIGNANCY.CELLULAR CHANGES ASSOCIATED WITH INFLAMMATION ARE PRESENT.Satisfactory for evaluation. Endocervical and/or squamous metaplasticcells (endocervical com ponent) are present.Z01.419Nathaly Reese Calendering Machine Operator (ASCP) 09-May-20178:25 URINE AUTUMN CULTURE-IDENTIFICATN Comments: PATIENT NOT FASTINGPERFORMED BY: [facility] Xiccep[address] [facility] [id number] ([address]125) Antimicrobial MIHEAD (Normal) Comments: S = Susceptible; I = Intermediate; R = Resistant P = Positive; N = Negative MICS are expressed in micrograms per mL Antibiotic RSLT#1 RSLT#2 RS Susceptibility LT#3 RSLT#4Amoxicillin/Clavulanic Acid SAmpicillin SCefepime SCeftriaxone SCefuroxime SCephalothin SCiprofloxacin SErtapenem SGentamicin SImipenem SLevofloxacin SNitrofurantoin SPipera cillin STetracycline RTobramycin STrimethoprim/Sulfa S Result 1 Escherichia coli Comments: 10,000-25,000 colony forming units per mL (Abnormal) Urine Final report Culture,Comprehensive (Abnormal) :25 URINALYSIS (01429) Comments: PATIENT NOT FASTINGPERFORMED BY: [facility] Heodzk[address] [facility] [id number] Information: SRC:UC Microscopic Examination MICNIP (Normal) Comments: Microscopic not indicated and not performed. Nitrite, Urine Negative (Normal) Urobilinogen,Semi-Qn 0.2 mg/dL (Normal) Range: 0.2-1.0 Bilirubin Negative (Normal) Occult Blood Negative (Normal) Ketones Negative (Normal) Glucose Negative (Normal) Protein Negative (Normal) WBC Esterase Negative (Normal) Appearance Clear (Normal) Urine-Color Yellow (Normal) pH 5.5 (Normal) Range: 5.0-7.5 Specific Exchange 1.022 (Normal) Range: 1.005-1.030 :35 CBC, Platelets & Auto Diff Comments: PATIENT NOT FASTINGPERFORMED BY: [facility] [facility] [id number] Information: NURSE DRAW (03157) Immature Grans (Abs) 0.0 {x10E3/uL} (Normal) Range: 0.0-0.1 Immature Granulocytes 0 % (Normal) Baso (Absolute) 0.0 {x10E3/uL} (Normal) Range: 0.0-0.2 Eos (Absolute) 0.2 {x10E3/uL} (Normal) Range: 0.0-0.4 Monocytes(Absolute) 0.5 {x10E3/uL} (Normal) Range: 0.1-0.9 Lymphs (Absolute) 2.8 {x10E3/uL} (Normal) Range: 0.7-3.1 Neutrophils (Absolute) 6.7 {x10E3/uL} (Normal) Range: 1.4-7.0 Basos 0 % (Normal) Eos 2 % (Normal) Monocytes 5 % (Normal) Lymphs 27 % (Normal) Neutrophils 66 % (Normal) Platelets 231 {x10E3/uL} (Normal) Range: 150-379 RDW 13.5 % (Normal) Range: 12.3-15.4 MCHC 32.6 g/dL (Normal) Range: 31.5-35.7 MCH 28.7 pg (Normal) Range: 26.6-33.0 MCV 88 fL (Normal) Range: 79-97 Hematocrit 39.6 % (Normal) Range: 34.0-46.6 Hemoglobin 12.9 g/dL (Normal) Range: 11.1-15.9 RBC 4.49 {x10E6/uL} (Normal) Range: 3.77-5.28 WBC 10.3 {x10E3/uL} (Normal) Range: 3.4-10.8 :35 Metabolic Panel, Comprehensive Comments: PATIENT NOT FASTINGPERFORMED BY: [facility] HospitalErwoip4719 [facility] [id number] ([address]) ALT (SGPT) 18 [iU]/L (Normal) Range: 0-32 AST (SGOT) 21 [iU]/L (Normal) Range: 0-40 Alkaline Phosphatase, S 79 [iU]/L (Normal) Range: 39-117 Bilirubin, Total 0.2 mg/dL (Normal) Range: 0.0-1.2 A/G Ratio 1.4 (Normal) Range: 1.2-2.2 Globulin, Total 2.8 g/dL (Normal) Range: 1.5-4.5 Albumin, Serum 3.8 g/dL (Normal) Range: 3.5-5.5 Protein, Total, Serum 6.6 g/dL (Normal) Range: 6.0-8.5 Calcium, Serum 9.0 mg/dL (Normal) Range: 8.7-10.2 Carbon Dioxide, Total 20 mmol/L (Normal) Range: 18-29 Chloride, Serum 99 mmol/L (Normal) Range: 96-106 Potassium, Serum 4.1 mmol/L (Normal) Range: 3.5-5.2 Sodium, Serum 138 mmol/L (Normal) Range: 134-144 BUN/Creatinine Ratio 13 (Normal) Range: 9-23 eGFR If Africn Am 113 mL/min/1.73 (Normal) eGFR If NonAfricn Am 98 mL/min/1.73 (Normal) Creatinine, Serum 0.78 mg/dL (Normal) Range: 0.57-1.00 BUN 10 mg/dL (Normal) Range: 6-20 Glucose, Serum 105 mg/dL (Abnormal) Range: 65-99 :35 T3, FREE (TRIDOTHYRONINE) (67188) Comments: PATIENT NOT FASTINGPERFORMED BY: [facility] [employer] [facility] [id number] Triiodothyronine,Free,Serum 3.7 pg/mL (Normal) Range: 2.0-4.4 :35 T4, FREE (THYROXINE) (10861) Comments: PATIENT NOT FASTINGPERFORMED BY: [facility] [employer] [facility] [id number] T4,Free(Direct) 1.07 ng/dL (Normal) Range: 0.82-1.77 47-Ags-048633:15 HgA1C , Office (83244) HgA1C , Office 5.5 % (Normal) Range: 4.6 - 7.1 29-Cep-446629:33 METABOLIC PANEL, Comments: PATIENT WAS FASTINGPERFORMED BY: [facility]ructureAbigail [place] [address]307 [facility] [id number] BY: [employer] [employer] [facility] [id number] COMPREHENSIVE (96861) ALT (SGPT) 21 [iU]/L (Normal) Range: 0-32 AST (SGOT) 20 [iU]/L (Normal) Range: 0-40 Alkaline Phosphatase, S 66 [iU]/L (Normal) Range: 39-117 Bilirubin, Total 0.2 mg/dL (Normal) Range: 0.0-1.2 A/G Ratio 1.3 (Normal) Range: 1.2-2.2 Globulin, Total 2.9 g/dL (Normal) Range: 1.5-4.5 Albumin, Serum 3.7 g/dL (Normal) Range: 3.5-5.5 Protein, Total, Serum 6.6 g/dL (Normal) Range: 6.0-8.5 Calcium, Serum 9.4 mg/dL (Normal) Range: 8.7-10.2 Carbon Dioxide, Total 21 mmol/L (Normal) Range: 18-29 Chloride, Serum 99 mmol/L (Normal) Range: 96-106 Potassium, Serum 4.5 mmol/L (Normal) Range: 3.5-5.2 Sodium, Serum 138 mmol/L (Normal) Range: 134-144 BUN/Creatinine Ratio 15 (Normal) Range: 9-23 eGFR If Africn Am 121 mL/min/1.73 (Normal) eGFR If NonAfricn Am 105 mL/min/1.73 (Normal) Creatinine, Serum 0.74 mg/dL (Normal) Range: 0.57-1.00 BUN 11 mg/dL (Normal) Range: 6-20 Glucose, Serum 88 mg/dL (Normal) Range: 65-99 85-Xjr-157136:33 LIPOPROTEIN, BLD, BY NMR Comments: PATIENT WAS FASTINGPERFORMED BY: BN [facility] [address] [id number] BY: CB [facility] Oxkvgg27[address] [facility] [id number]; fu 8-1 db (93406) LP-IR Score 72 (Abnormal) Comments: INSULIN RESISTANCE MARKER <--Insulin Sensitive Insulin Resistant--> Percentile in Reference PopulationInsulin Resistance ScoreLP-IR Score Low 25th 50th 75th High <27 27 45 63 >63LP-IR Score is inaccurate if patient is non-fasting. .The LP-IR score is a laboratory developed i [facility] that has beenassociated with insulin resistance and diabetes risk and should beused as one component of a physician's clinical assessment. TheLP-IR score listed above has not been cleared by the [place] Food andDrug Administration. LDL Size 20.4 nm (Normal) Comments: INTERPRETATIVE INFORMATION PARTICLE CONCENTRATION AND SIZE <--Lower CVD Risk Highe r CVD Risk--> LDL AND HDL PARTICLES Percentile in Reference Population HDL-P (total) High 75th 50th 25th Low >34.9 34.9 30.5 26.7 <26.7 . Small LDL-P Low 25th 50th 75th High <117 117 527 839 >839 . LDL Size <-Large (Pattern A)-> <-Small (Pattern B)-> 23.0 20.6 20.5 19.0 Small LDL-P and LDL Size are associated with CVD risk, but not afterLDL-P is taken into account. .These assays were developed and their performance characteristicsdetermined by [employer]. These assays have not been cleared by [place] Food and Drug Administration. The clinical utility of theselaboratory values have not been fully established. Small LDL-P 934 nmol/L (Abnormal) HDL-P (Total) 38.9 umol/L (Normal) Cholesterol, Total 182 mg/dL (Normal) Range: 100-199 Triglycerides 133 mg/dL (Normal) Range: 0-149 HDL-C 46 mg/dL (Normal) LDL-C 109 mg/dL (Abnormal) Range: 0-99 Comments: . Optimal < 100 Above optimal 100 - 129 Borderline 1 30 - 159 High 160 - 189 Very high > 189 .LDL-C is inaccurate if patient is non-fasting. LDL-P 1695 nmol/L (Abnormal) Comments: Low < 1000 Moderate 1000 - 1299 Borderline-High 1300 - 1599 High 1600 - 2000 Very High > 2000 63-Day-839680:33 CBC with auto diff Comments: PATIENT WAS FASTINGPERFORMED BY: [address] [id number] BY: [facility]CoSt. [facility] HospitalObirfv8[address] [facility] [id number] (04056) Immature Grans (Abs) 0.0 {x10E3/uL} (Normal) Range: 0.0-0.1 Immature Granulocytes 0 % (Normal) Baso (Absolute) 0.0 {x10E3/uL} (Normal) Range: 0.0-0.2 Eos (Absolute) 0.2 {x10E3/uL} (Normal) Range: 0.0-0.4 Monocytes(Absolute) 0.3 {x10E3/uL} (Normal) Range: 0.1-0.9 Lymphs (Absolute) 2.8 {x10E3/uL} (Normal) Range: 0.7-3.1 Neutrophils (Absolute) 5.8 {x10E3/uL} (Normal) Range: 1.4-7.0 Basos 0 % (Normal) Eos 2 % (Normal) Monocytes 4 % (Normal) Lymphs 31 % (Normal) Neutrophils 63 % (Normal) Platelets 241 {x10E3/uL} (Normal) Range: 150-379 RDW 14.1 % (Normal) Range: 12.3-15.4 MCHC 33.0 g/dL (Normal) Range: 31.5-35.7 MCH 29.0 pg (Normal) Range: 26.6-33.0 MCV 88 fL (Normal) Range: 79-97 Hematocrit 41.2 % (Normal) Range: 34.0-46.6 Hemoglobin 13.6 g/dL (Normal) Range: 11.1-15.9 RBC 4.69 {x10E6/uL} (Normal) Range: 3.77-5.28 WBC 9.2 {x10E3/uL} (Normal) Range: 3.4-10.8 62-Vuq-401245:33 CALCIFIDIOL (57884) VIT D Comments: PATIENT WAS FASTINGPERFORMED BY: [facility] [id number] BY: LabCoSt. Joseph's [facility] HospitalMawlxo0178 [facility] [id number] 25 Vitamin D, 25-Hydroxy 51.8 ng/mL (Normal) Range: 30.0-100.0 Comments: Vitamin D deficiency has been defined by the Graham ofMedicine and an Endocrine Society practice guideline as alevel of serum 25-OH vitamin D less than 20 ng/mL (1,2).The Endocrine Society went on to further define vitamin Dinsufficiency as a level between 21 and 29 ng/mL (2).1. IOM (Graham of Medicine). 2010. Dietary reference intakes for calcium and D. [place]: The National Academies Press.2. Clari MF, Jose LEES, Ash NETTLES, et al. Evaluation, treatment, and prevention of vitamin D deficiency: an Endocrine Society clinical practice guideline. JCEM. 2010; 96(7):1911-30. :38 AUTUMN CULTURE-OTHER (75160) Comments: PATIENT NOT FASTINGPERFORMED BY: [facility] Egefbv4372 [facility] [id number] Information: SRC:TH Result 1 RRF (Normal) Comments: Routine respiratory juan Upper Respiratory Culture Final report (Normal) 71-Ysm-59123:32 AUTUMN CULTURE-OTHER (50432) Comments: PATIENT NOT FASTINGPERFORMED BY: [facility] Obnkpe5083 [facility] [id number] Information: SRC:TH Result 1 RRF (Normal) Comments: Routine respiratory juan Upper Respiratory Culture Final report (Normal) 10-Wwg-805860:35 Rapid Strep Test, Office (87056) Rapid Strep Test, Office Negative (Normal) 57-Lyw-139011:39 CBC W/Diff, Automated Comments: [facility] Qznxpnkicu1133 Jose [address] [place], [place], [id number] Absolute Lymph 3.19 {X10_3/ul} (Normal) Range: 0.83-4.51 Absolute Neut 5.6 {X10_3/uL} (Normal) Range: 2.0-7.7 IM GRAN % 0.100 % (Normal) Range: 0.0-0.9 Comments: IG% - Immature Granulocytes (promyelocytes, myelocytes andmetamyelocytes) > 1% indicates that a LEFT SHIFT is Present. BASO% 0.5 % (Normal) Range: 0-1 EO% 2.7 % (Normal) Range: 0-5 MONO% 5.7 % (Normal) Range: 0-10 LY% 33.2 % (Normal) Range: 19-41 NEUT% 57.8 % (Normal) Range: 47-70 MPV 9.9 fL (Normal) Range: 6.2-12.0 PLT 229 K/mm3 (Normal) Range: 150-450 RDW SD 40.6 fL (Normal) Range: 35.1-43.9 RDW CV 12.6 % (Normal) Range: 11.6-14.6 MCHC 33.0 {g/gl} (Normal) Range: 32-36 MCH 29.0 pg (Normal) Range: 27.0-32.0 MCV 88.0 fL (Normal) Range: 81-99 HCT 40.3 % (Normal) Range: 37-47 HGB 13.3 g/dL (Normal) Range: 12.0-15.0 RBC 4.58 {M/mm3} (Normal) Range: 4.2-5.4 WBC 9.6 K/mm3 (Normal) Range: 4.4-11.0 90-Lqj-766227:39 Prothrombin Time w/INR Comments: [facility] Iwmwaoflqk94[address] [place], [place], [address] INR 1.0 (Normal) PROTIME 12.9 s (Normal) Range: 11.7-14.9 99-Snq-156271:58 CBC, Platelets & Auto Comments: PATIENT NOT FASTINGPERFORMED BY: LabCoSt. Joseph's [facility] HospitalNpfbkq5802 [facility] [id number] Information: [id number] Diff (26321) Immature Grans (Abs) 0.0 {x10E3/uL} (Normal) Range: 0.0-0.1 Immature Granulocytes 0 % (Normal) Baso (Absolute) 0.0 {x10E3/uL} (Normal) Range: 0.0-0.2 Eos (Absolute) 0.2 {x10E3/uL} (Normal) Range: 0.0-0.4 Monocytes(Absolute) 0.5 {x10E3/uL} (Normal) Range: 0.1-0.9 Lymphs (Absolute) 2.4 {x10E3/uL} (Normal) Range: 0.7-3.1 Neutrophils (Absolute) 5.0 {x10E3/uL} (Normal) Range: 1.4-7.0 Basos 0 % (Normal) Eos 2 % (Normal) Monocytes 6 % (Normal) Lymphs 30 % (Normal) Neutrophils 62 % (Normal) Platelets 213 {x10E3/uL} (Normal) Range: 150-379 RDW 13.9 % (Normal) Range: 12.3-15.4 MCHC 32.9 g/dL (Normal) Range: 31.5-35.7 MCH 29.0 pg (Normal) Range: 26.6-33.0 MCV 88 fL (Normal) Range: 79-97 Hematocrit 41.0 % (Normal) Range: 34.0-46.6 Hemoglobin 13.5 g/dL (Normal) Range: 11.1-15.9 RBC 4.66 {x10E6/uL} (Normal) Range: 3.77-5.28 WBC 8.1 {x10E3/uL} (Normal) Range: 3.4-10.8 :58 T3, FREE (TRIDOTHYRONINE) (04034) Comments: PATIENT NOT FASTINGPERFORMED BY: [facility] [employer] [facility] NetworkCarte[facility] [id number] Triiodothyronine,Free,Serum 3.2 pg/mL (Normal) Range: 2.0-4.4 :58 T4, FREE (THYROXINE) (18816) Comments: PATIENT NOT FASTINGPERFORMED BY: [facility]ructure [facility] RegionUr[facility] CompassC[facility] [id number] T4,Free(Direct) 1.07 ng/dL (Normal) Range: 0.82-1.77 :58 TSH (83330) Comments: PATIENT NOT FASTINGPERFORMED BY: [facility] [employer] [facility] RegionUr[facility] CompassC[facility] [id number] TSH 2.830 {uIU/mL} (Normal) Range: 0.450-4.500 :58 HELICOBACTER PYLORI ANTIBODY Comments: PATIENT NOT FASTINGPERFORMED BY: [facility] [employer] NetworkC[facility] [id number] (56465) H. pylori, IgG Abs <0.9 U/mL (Normal) Range: 0.0-0.8 Comments: Negative <0.9 Indeterminate 0.9 - 1.0 Positive >1.0 4-Voj-442344:46 Testosterone, Free+Total Comments: PATIENT NOT FASTINGPERFORMED BY: [address] [id number] BY: [facility] [facility] [id number] Information: [id number] LC/MS Free Testosterone(Direct) 1.5 pg/mL Range: 0.0-4.2 (Normal) Testosterone, Total, LC/MS 11.8 ng/dL Range: 10.0-55.0 (Normal) Comments: This test was developed and its performance characteristicsdetermined by [employer]. It has not been cleared or approvedby the Food and Drug Administration. Written Authorization WAR (Normal) Comments: PATIENT NOT FASTINGPERFORMED BY: [address] [id number] BY: [facility] [facility] [id number] 610:46 Comments: Written Authorization Received.Authorization received from PHILLIP LEIGH LPN [id number] by Chichi Flores 7-Ply-440334:46 CALCIFIDIOL (48796) VIT D 25 Comments: PATIENT NOT FASTINGPERFORMED BY: [facility] [facility] [id number] Vitamin D, 25-Hydroxy 41.9 ng/mL (Normal) Range: 30.0-100.0 Comments: Vitamin D deficiency has been defined by the Graham ofMedicine and an Endocrine Society practice guideline as alevel of serum 25-OH vitamin D less than 20 ng/mL (1,2).The Endocrine Society went on to further define vitamin Dinsufficiency as a level between 21 and 29 ng/mL (2).1. IOM (Graham of Medicine). 2010. Dietary reference intakes for calcium and D. [place]: The National Academies Press.2. Clari TONY, Jose LEES, Ash NETTLES, et al. Evaluation, treatment, and prevention of vitamin D deficiency: an Endocrine Society clinical practice guideline. JCEM. 2010; 96(7):1911-30. 3-Ttp-308760:46 Metabolic Panel, Comments: PATIENT NOT FASTINGPERFORMED BY: [facility] Zlauyd0540 [facility] [id number] Information: [id number] Comprehensive (17181) ALT (SGPT) 21 [iU]/L (Normal) Range: 0-32 AST (SGOT) 18 [iU]/L (Normal) Range: 0-40 Alkaline Phosphatase, S 80 [iU]/L (Normal) Range: 39-117 Bilirubin, Total 0.2 mg/dL (Normal) Range: 0.0-1.2 A/G Ratio 1.5 (Normal) Range: 1.1-2.5 Globulin, Total 2.7 g/dL (Normal) Range: 1.5-4.5 Albumin, Serum 4.0 g/dL (Normal) Range: 3.5-5.5 Protein, Total, Serum 6.7 g/dL (Normal) Range: 6.0-8.5 Calcium, Serum 9.4 mg/dL (Normal) Range: 8.7-10.2 Carbon Dioxide, Total 24 mmol/L (Normal) Range: 18-29 Chloride, Serum 97 mmol/L (Normal) Range: 97-108 Potassium, Serum 4.3 mmol/L (Normal) Range: 3.5-5.2 Sodium, Serum 139 mmol/L (Normal) Range: 134-144 BUN/Creatinine Ratio 15 (Normal) Range: 8-20 eGFR If Africn Am 123 mL/min/1.73 (Normal) eGFR If NonAfricn Am 107 mL/min/1.73 (Normal) Creatinine, Serum 0.73 mg/dL (Normal) Range: 0.57-1.00 BUN 11 mg/dL (Normal) Range: 6-20 Glucose, Serum 81 mg/dL (Normal) Range: 65-99 62-Lae-330605:16 Cortisol,Urinary Free 24- Comments: PATIENT NOT FASTINGPERFORMED BY: [facility] Zjtzzkfnhu4020 [facility] [id number] Information: [id number] VOLUME 1800; fu 8-18 Hour Urine (61807) Cortisol,F,ug/24hr,U 18 {ug/24_hr} (Normal) Range: 0-50 Comments: This test was developed and its performance characteristicsdetermined by [facility]. It has not been cleared or approvedby the Food and Drug Administration. Cortisol,F,ug/L,U 10 ug/L (Normal) 0-Kyp-209346:46 HGB A1C (01779) Comments: PATIENT NOT FASTINGPERFORMED BY: [place] [address] [facility] [id number] Hemoglobin A1c 5.5 % (Normal) Range: 4.8-5.6 Comments: . Pre-diabetes: 5.7 - 6.4 Diabetes: >6.4 Glycemic control for adults with diabetes: <7.0 25-Igq-651680:13 SEROTONIN (60321) Comments: PATIENT NOT FASTINGPERFORMED BY: [address] [id number] Information: [id number] Serotonin, Serum 10 ng/mL (Normal) Range: 0-420 57-Epu-01930:42 TSH (THYROID STIMULATING Comments: PATIENT NOT FASTINGPERFORMED BY: [address] [id number] HORMONE) (36641) TSH 1.560 {uIU/mL} (Normal) Range: 0.450-4.500 :42 CBC, PLATELETS & MANUAL Comments: PATIENT NOT FASTINGPERFORMED BY: [address] [id number] Information: [id number] DIFF (16911) Immature Grans (Abs) 0.0 {x10E3/uL} (Normal) Range: 0.0-0.1 Immature Granulocytes 0 % (Normal) Baso (Absolute) 0.0 {x10E3/uL} (Normal) Range: 0.0-0.2 Eos (Absolute) 0.1 {x10E3/uL} (Normal) Range: 0.0-0.4 Monocytes(Absolute) 0.5 {x10E3/uL} (Normal) Range: 0.1-0.9 Lymphs (Absolute) 1.3 {x10E3/uL} (Normal) Range: 0.7-3.1 Neutrophils (Absolute) 6.2 {x10E3/uL} (Normal) Range: 1.4-7.0 Basos 0 % (Normal) Eos 2 % (Normal) Monocytes 6 % (Normal) Lymphs 16 % (Normal) Neutrophils 76 % (Normal) Platelets 214 {x10E3/uL} (Normal) Range: 150-379 RDW 13.8 % (Normal) Range: 12.3-15.4 MCHC 31.8 g/dL (Normal) Range: 31.5-35.7 MCH 28.6 pg (Normal) Range: 26.6-33.0 MCV 90 fL (Normal) Range: 79-97 Hematocrit 42.8 % (Normal) Range: 34.0-46.6 Hemoglobin 13.6 g/dL (Normal) Range: 11.1-15.9 RBC 4.75 {x10E6/uL} (Normal) Range: 3.77-5.28 WBC 8.2 {x10E3/uL} (Normal) Range: 3.4-10.8 85-Fkl-27079:42 ESR-F (SED RATE ERYTHROCYTE - Comments: PATIENT NOT FASTINGPERFORMED BY: ParastructureSt. Joseph's [facility] HospitalRhodgv0142 [facility] [id number] FEMALE) (63724) Sedimentation Rate-Westergren 25 mm/h (Normal) Range: 0-32 48-Vbn-89896:42 PREALBUMIN (90085) Comments: PATIENT NOT FASTINGPERFORMED BY: ParastructureSt. Joseph's Wayne HospitalXklpcz1787 [facility] [id number] Prealbumin 28 mg/dL (Normal) Range: 9-31 Comments: Effective November 21, 2015 the reference interval for Prealbumin will be changing to: 0 - 30 days 7 - 39 1 month - 12 years 11 - 26 13 - 17 years 13 - 32 18 - 40 years 14 - 35 41 - 50 years 12 - 34 51 - 70 years 10 - 36 >70 years 9 - 32 82-Xkg-764161:45 Urinalysis, Complete Comments: Order Date: 11/17/15How was Urine Obtained? END FINDER FORMING DEPARTMENT TO [facility] Jdiqtwwbzj3813 [facility]. [place], [place], [id number] MUCUS, URINE 0 SEEN {/hpf} (Normal) BACTERIA 0 SEEN {/hpf} (Normal) SQUAM EPI 0-5 SEEN {/hpf} (Normal) Range: 5-10 RBC-UA 0 SEEN {/hpf} (Normal) Range: 0-5 WBC 0 SEEN {/hpf} (Normal) Range: 0-5 LEUK ESTERASE Negative /ul (Normal) OCCULT BLOOD-UR Negative /ul (Normal) NITRITE UR Negative (Normal) UROBILI Normal mg/dL (Normal) PROT DIPSTX Negative mg/dL (Normal) pH UR 6.0 (Normal) Range: 5.0 - 8.0 SP.GR. DIPSTX 1.020 (Normal) Range: 1.002-1.030 KETONE UR Negative mg/dL (Normal) BILIRUBIN URINE Negative mg/dL (Normal) GLUCOSE, UR Normal mg/dL (Normal) CLARITY Sl. Cloudy (Normal) COLOR Yellow (Normal) 37-Jbd-28893:08 CBC W/Diff, Automated Comments: [facility] Oirhyjbrtb5303 [facility]. [place], [place], [id number] Absolute Lymph 1.81 {X10_3/ul} (Normal) Range: 0.83-4.51 Absolute Neut 11.5 {X10_3/uL} (Abnormal) Range: 2.0-7.7 IM GRAN % 0.300 % (Normal) Range: 0.0-0.9 Comments: IG% - Immature Granulocytes (promyelocytes, myelocytes andmetamyelocytes) > 1% indicates that a LEFT SHIFT is Present. BASO% 0.1 % (Normal) Range: 0-1 EO% 1.2 % (Normal) Range: 0-5 MONO% 5.2 % (Normal) Range: 0-10 LY% 12.6 % (Abnormal) Range: 19-41 NEUT% 80.6 % (Abnormal) Range: 47-70 MPV 10.1 fL (Normal) Range: 6.2-12.0 PLT 230 K/mm3 (Normal) Range: 150-450 RDW SD 42.0 fL (Normal) Range: 35.1-43.9 RDW CV 13.3 % (Normal) Range: 11.6-14.6 MCHC 34.0 {g/gl} (Normal) Range: 32-36 MCH 29.5 pg (Normal) Range: 27.0-32.0 MCV 86.7 fL (Normal) Range: 81-99 HCT 43.8 % (Normal) Range: 37-47 HGB 14.9 g/dL (Normal) Range: 12.0-15.0 RBC 5.05 {M/mm3} (Normal) Range: 4.2-5.4 WBC 14.3 K/mm3 (Abnormal) Range: 4.4-11.0 63-Mzs-42168:08 Comprehensive Metabolic Profil Comments: [facility] Xxjlptctve4078 [address] [place], [place], [id number] GAP 6 (Normal) Range: 5-15 CO2 27.0 mmol/L (Normal) Range: 21.0-32.0 CL 105 mmol/L (Normal) Range: 98-107 K 3.8 mmol/L (Normal) Range: 3.5-5.1 NA 138 mmol/L (Normal) Range: 136-145 T BILI 0.40 mg/dL (Normal) Range: 0.20-1.00 ALT 32 U/L (Normal) Range: 12-78 ALK P 89 U/L (Normal) Range: 50-136 AST 18 U/L (Normal) Range: 15-37 CA 8.8 mg/dL (Normal) Range: 8.5-10.1 A/G 0.8 {RATIO} (Abnormal) Range: 0.9-2.4 GLOB 4.2 g/dL (Abnormal) Range: 2.3-3.5 ALB 3.4 g/dL (Normal) Range: 3.4-5.0 T PROT 7.6 g/dL (Normal) Range: 6.4-8.2 BUN/CRE 16.1 {RATIO} (Normal) Range: 10-20 Estimated CRCL 94.32 ml/min (Normal) EST GFR - AA 95 mL/min (Normal) Comments: GFR Calc EST GFR 79 mL/min (Normal) Comments: Non- GFR Calc CREAT,SERUM 0.87 mg/dL (Normal) Range: 0.55-1.20 Comments: The validity of the calculated GFR AND GFRAA in patients over70 years has not been determined. Clinical correlation isessential. BUN 14 mg/dL (Normal) Range: 7-18 GLU 92 mg/dL (Normal) Range: 70-110 :08 Lipase Comments: [facility] Lljdkpuqea[address] [place], [address] LIPASE 160 U/L (Normal) Range: 73-393 :08 ,Serum,hCG Quali. Comments: [facility] [address] [place], [address] HCGSQUAL NEGATIVE {Negative} Range: 0-9 Nonpreg (Normal) HCG Qual triggr < 1 m[iU]/mL (Normal) :00 LIPOMA (SOFT TISSUE) See Note (Normal) Comments: [facility] [address] [place], [address] Comments: Patient: SANDRA RATLIFF : 1980 (35/F) Acct Num: [id number] Phys: Yohan HARGROVE,Vi Unit Num: [id number] Loc: LABSPEC Specimen: [id number] Received: 11/09/151842 Spec Type: LIPOMA TISSUES TISSUES: GROSS DESCRIPTION Received is one container labeled with the patient name and designated abdominal lesion. The specimen consists of multiple irregular fragm ents of yellow fatty tissue that in aggregate measure 4 x 3 x 1 cm. Commercial Account Manager portions are submitted in one cassette. / AM:shubham 11/10/15 TC:1 CPT:05873 HEADER OPERATION: Excision upper left a bdominal wall lesion PRE-OP DIAGNOSIS: Upper left abdominal wall lesion TISSUE SUBMITTED: Lipoma of abdominal wall MICROSCOPIC DESCRIPTION Slides are reviewed. MICROSCOPIC DIAGNOSIS Lipo ma of abdominal wall, excision: Mature adipose tissue, consistent with lipoma. SJ:shubham 11/11/15 Signed Yimi Zapata 11/11/15 <signature on file> 3-Rlu-197708:50 Culture, Blood (WB) Comments: [facility] [address]lllwb[address] [place], [place], [address] CUB See Note (Normal) Comments: BCNo growth in 5 days. 1-Avm-959631:50 Culture, Blood (WB) Comments: [facility] Oasuebvimk9[address] [place], [place], [address] CUB See Note (Normal) Comments: BCNo growth in 5 days. 83-Eww-12119:08 Urinalysis, Office (59680) UA - LEUKOCYTE ESTERASE Negative (Normal) UA - NITRITE Negative (Normal) URINE UROBILINGN DWAYNE TIMED Normal mg/dL (Normal) UA - PROTEIN 30 mg/dL (Normal) UA - PH 6 (Abnormal) UA - BLOOD Negative (Normal) UA - SPECIFIC GRAVITY 1.020 (Normal) UA - KETONES 15 ug/dL (Abnormal) UA - BILIRUBIN Moderate (Normal) UA - GLUCOSE Negative (Normal) 15-Ffe-454279:10 Microscopic Examination Comments: PATIENT NOT FASTINGPERFORMED BY: ParastructureSt. Joseph's Wayne HospitalXmlgxr[address] [place] [address] [id number] Bacteria Few (Normal) Mucus Threads Present (Normal) Cast Type Hyaline casts (Normal) Casts Present {/lpf} (Abnormal) Epithelial Cells (non renal) 0-10 {/hpf} (Normal) Range: 0 - 10 RBC 0-2 {/hpf} (Normal) Range: 0 - 2 WBC 6-10 {/hpf} (Abnormal) Range: 0 - 5 :51 ANCA Panel Comments: PATIENT NOT FASTINGPERFORMED BY: [place]SlideJ[place] 729[address] [facility] [id number] BY: ParastructureSt. Joseph's Wayne HospitalFyxnbw1635 [facility] [id number] Information: 592128,[id number] Atypical pANCA <1:20 {titer} Comments: The atypical pANCA pattern has been observed in a significantpercentage of patients with ulcerative colitis, primary sclerosingcholangitis and autoimmune hepatitis. (Normal) Perinuclear (P-ANCA) <1:20 {titer} Comments: The presence of positive fluorescence exhibiting P-ANCA or C-ANCApatterns alone is not specific for the diagnosis of Adolfo'sGranulomatosis (WG) or microscopic polyangiitis. Decisions about treatment sh (Normal) ould not be based solely on ANCA IFA results. TheInternational ANCA Group Consensus recommends follow up testing ofpositive sera with both WI-3 and MPO-ANCA enzyme immunoassays. Asmany as 5% serum samp les are positive only by EIA.Ref. AM J Clin Pathol 1999;111:507-513. Cytoplasmic (C-ANCA) <1:20 {titer} (Normal) Antiproteinase 3 (WI-3) Abs <3.5 U/mL Range: 0.0-3.5 (Normal) Antimyeloperoxidase (MPO) <9.0 U/mL Range: 0.0-9.0 Abs (Normal) Written Authorization WAR (Normal) Comments: PATIENT NOT FASTINGPERFORMED BY: ParastructureAbigail [place] 499307 [facility] [id number] BY: ParastructureSt. Joseph's Wayne HospitalPzflto7861 [facility] [id number] 612:51 Comments: Written Authorization Received.Authorization received from ERIKA RUANO LPN [id number] by Shalini Ramos 94-Zwr-526987:51 CBC WITH MANUAL DIFF Comments: PATIENT NOT FASTINGPERFORMED BY: [employer] Elqwvn6878 [facility] [id number] Information: [id number] (42167) Immature Grans (Abs) 0.0 {x10E3/uL} (Normal) Range: 0.0-0.1 Immature Granulocytes 0 % (Normal) Baso (Absolute) 0.0 {x10E3/uL} (Normal) Range: 0.0-0.2 Eos (Absolute) 0.2 {x10E3/uL} (Normal) Range: 0.0-0.4 Monocytes(Absolute) 0.6 {x10E3/uL} (Normal) Range: 0.1-0.9 Lymphs (Absolute) 1.4 {x10E3/uL} (Normal) Range: 0.7-3.1 Neutrophils (Absolute) 5.6 {x10E3/uL} (Normal) Range: 1.4-7.0 Basos 0 % (Normal) Eos 2 % (Normal) Monocytes 7 % (Normal) Lymphs 18 % (Normal) Neutrophils 73 % (Normal) Platelets 341 {x10E3/uL} (Normal) Range: 150-379 RDW 13.1 % (Normal) Range: 12.3-15.4 MCHC 33.5 g/dL (Normal) Range: 31.5-35.7 MCH 29.2 pg (Normal) Range: 26.6-33.0 MCV 87 fL (Normal) Range: 79-97 Hematocrit 37.3 % (Normal) Range: 34.0-46.6 Hemoglobin 12.5 g/dL (Normal) Range: 11.1-15.9 RBC 4.28 {x10E6/uL} (Normal) Range: 3.77-5.28 WBC 7.8 {x10E3/uL} (Normal) Range: 3.4-10.8 32-Nua-596399:10 URINE AUTUMN CULTURE-IDENTIFICATN Comments: PATIENT NOT FASTINGPERFORMED BY: Airstone StyleTreadAt[facility] [id number] (93378) Result 1 NG36 (Normal) Comments: No growth in 36 - 48 hours. Urine Culture,Comprehensive Final report (Normal) :51 COMPLEMENT C4 (54005) Comments: PATIENT NOT FASTINGPERFORMED BY: Airstone [facility] [id number] Complement C4, Serum 50 mg/dL (Abnormal) Range: 14-44 28-Npr-430039:51 COMPLEMENT C3 (27710) Comments: PATIENT NOT FASTINGPERFORMED BY: Airstone [employer] [facility] [id number] Complement C3, Serum 204 mg/dL (Abnormal) Range: 82-167 66-Dim-222033:58 COMPLEMENT, TOTAL (CH50) Comments: PATIENT NOT FASTINGPERFORMED BY: Airstone [facility] [id number] Information: [id number] (88395) Complement, Total (CH50) >60 U/mL (Abnormal) Range: 42-60 Comments: Please note reference interval change 74-Qrq-798889:10 URINALYSIS (61178) Comments: PATIENT NOT FASTINGPERFORMED BY: AngioSlide[place] [address] [facility] [id number] Information: [id number] Microscopic Examination See below: (Normal) Comments: Microscopic was indicated and was performed. Appearance Cloudy (Abnormal) Urine-Color [place] (Normal) Comments: Unable to read or assay due to color interference. Specific Exchange 1.023 (Normal) Range: 1.005-1.030 73-Rjy-915003:51 HCG Qualitative, Serum (80116) Comments: PATIENT NOT FASTINGPERFORMED BY: AngioSlide[place] [address]100[address] [facility] [id number] hCG,Beta Subunit,Qual,Serum Negative m[iU]/mL (Normal) 84-Cmc-373465:51 serum free light chains Comments: PATIENT NOT FASTINGPERFORMED BY: [place]Slide[place] [address]100[address] [facility] [id number] (70531) [place]/Lambda Ratio,S 1.97 (Abnormal) Range: 0.26-1.65 Free Lambda Lt Chains,S 16.13 mg/L (Normal) Range: 5.71-26.30 Free [place] Lt Chains,S 31.85 mg/L (Abnormal) Range: 3.30-19.40 60-Tcp-190336:51 urine immunofixation (26207) Comments: PATIENT NOT FASTINGPERFORMED BY: [facility]ioSlideFormerly [facility] [facility] [id number] IRWIN Interpretation:U UPEIP (Normal) Comments: No monoclonality detected. 74-Jao-360470:51 serum immunofixation (16736) Comments: PATIENT NOT FASTINGPERFORMED BY: [facility] [facility] [id number] Immunoglobulin M, Qn, Serum 68 mg/dL (Normal) Range: 40-230 Immunoglobulin A, Qn, Serum 192 mg/dL (Normal) Range: 91-414 Immunoglobulin G, Qn, Serum 1229 mg/dL (Normal) Range: 700-1600 Immunofixation Result, Serum IFENOR (Normal) Comments: An apparent normal immunofixation pattern. 61-Lrt-256202:51 UPEP (05944) Comments: PATIENT NOT FASTINGPERFORMED BY: ParastructureSt. Joseph's Wayne HospitalZildwy8303 [facility] [id number] Please note: SPRCS (Normal) Comments: Protein electrophoresis scan will follow via computer, mail, orcourier delivery. M-Rene, % Not Observed % (Normal) Gamma Globulin, U 12.1 % (Normal) Beta Globulin, U 23.3 % (Normal) Nwjdr-6-Becmwkkk, U 28.7 % (Normal) Lsqyu-1-Zlweokpc, U 4.1 % (Normal) Albumin, U 31.8 % (Normal) Protein,Total,Urine 42.0 mg/dL (Abnormal) Range: 0.0-15.0 33-Yjx-086718:51 P-ANCA & C-ANCA (ANCA Comments: PATIENT NOT FASTINGPERFORMED BY: ParastructureSt. Joseph's Wayne HospitalGgfjmf2445 [facility] [id number] PROFILE) 86559 x2 and 04076 x2 Mitochondrial (M2) Antibody <20.0 {Units} (Normal) Range: 0.0-20.0 Comments: Negative 0.0 - 20.0 Equivocal 20.1 - 24.9 Positive >24.9 . Mitochondrial (M2) Antibodies are found in 90-96% of patients with primary biliary cirrhosis. :51 C-REACT PROT HIGH SENS(hsCRP) Comments: PATIENT NOT FASTINGPERFORMED BY: [facility]ructureSt[facility] HospitalBifexl[address] [facility] [id number] ([id number]) C-Reactive Protein, Cardiac 94.10 mg/L (Abnormal) Range: 0.00-3.00 Comments: Relative Risk for Future Cardiovascular Event Low <1.00 Average 1.00 - 3.00 High >3.00 [id number] DNA ANTIBODY-NATV/DBL ST (01220) Comments: PATIENT NOT FASTINGPERFORMED BY: [facility] [facility] [id number] test code 027635 Anti-DNA (DS) Ab Qn <1 {IU/mL} (Normal) Range: 0-9 Comments: Negative <5 Equivocal 5 - 9 Positive >9 [id number]:32 MICROALBUMIN: CREATININE Comments: PATIENT NOT FASTINGPERFORMED BY: [facility] [facility] [id number] Information: [id number] RATIO (45053) AND (85021) Microalb/Creat Ratio 28.7 {mg/g_creat} (Normal) Range: 0.0-30.0 Microalbumin, Urine 76.1 ug/mL (Abnormal) Range: 0.0-17.0 Creatinine, Urine 265.3 mg/dL (Normal) Range: 16.0-327.0 [id number]-Qee-863922:32 RPR (RAPID PLASMA REAGIN) Comments: PATIENT NOT FASTINGPERFORMED BY: [place] [address] [facility] [id number] (31411) RPR Non Reactive (Normal) 35-Gfi-726655:26 Systemic Lupus Profile A Comments: PATIENT NOT FASTINGPERFORMED BY: [facility] [facility] [id number] Information: [id number] Anti-DNA (DS) Ab Qn <1 {IU/mL} Range: 0-9 (Normal) Comments: Negative <5 Equivocal 5 - 9 Positive >9 Sjogren's Anti-SS-B 0.4 {AI} (Normal) Range: 0.0-0.9 Sjogren's Anti-SS-A <0.2 {AI} (Normal) Range: 0.0-0.9 Antichromatin Antibodies 0.3 {AI} (Normal) Range: 0.0-0.9 RA Latex Turbid. 13.0 {IU/mL} Range: 0.0-13.9 (Normal) Tariq Antibodies <0.2 {AI} (Normal) Range: 0.0-0.9 RECEPTIONIST Antibodies 2.7 {AI} Range: 0.0-0.9 (Abnormal) Written Authorization WAR (Normal) Comments: PATIENT NOT FASTINGPERFORMED BY: [facility] [facility] [id number] 0:26 Comments: Written Authorization Received.Authorization received from MICHELLE REAVES MD [id number] by Devi Biswas 63-Cfy-880349:26 EB ANTIBODY VIRAL CAPSID Comments: PATIENT NOT FASTINGPERFORMED BY: [facility] [facility] [id number] (43906) X2 Interpretation: SPRCS (Normal) Comments: EBV Interpretation Chart . Interpretation EBV-IgM EA(D)-IgG VCA-IgG EBNA-IgG . EBV Seronegative - - - - Early Phase + - - - Acute Primary + +or- + - Infection Convalescence/Past - +or- + + Infection Reactivated +or- + + + Infection + Antibody Present - Antibody Absent EBV Nuclear Antigen Ab, IgG <18.0 U/mL (Normal) Range: 0.0-17.9 Comments: Negative <18.0 Equivocal 18.0 - 21.9 Positive >21.9 EBV Ab VCA, IgG <18.0 U/mL (Normal) Range: 0.0-17.9 Comments: Negative <18.0 Equivocal 18.0 - 21.9 Positive >21.9 EBV Early Antigen Ab, IgG <9.0 U/mL (Normal) Range: 0.0-8.9 Comments: Negative < 9.0 Equivocal 9.0 - 10.9 Positive >10.9 EBV Ab VCA, IgM <36.0 U/mL (Normal) Range: 0.0-35.9 Comments: Negative <36.0 Equivocal 36.0 - 43.9 Positive >43.9 14-Cvs-623320:26 CALCIFIDIOL (53060) VIT D 25 Comments: PATIENT NOT FASTINGPERFORMED BY: [facility] [facility] [id number] Vitamin D, 25-Hydroxy 48.4 ng/mL (Normal) Range: 30.0-100.0 Comments: Vitamin D deficiency has been defined by the Graham ofMedicine and an Endocrine Society practice guideline as alevel of serum 25-OH vitamin D less than 20 ng/mL (1,2).The Endocrine Society went on to further define vitamin Dinsufficiency as a level between 21 and 29 ng/mL (2).1. IOM (Graham of Medicine). 2010. Dietary reference intakes for calcium and D. [place]: The National Academies Press.2. Clari TONY, Jose LEES, Ash NETTLES, et al. Evaluation, treatment, and prevention of vitamin D deficiency: an Endocrine Society clinical practice guideline. JCEM. 2010; 96(7):1911-30. 08-Qsx-643211:26 Folate (98576) Comments: PATIENT NOT FASTINGPERFORMED BY: CB [facility] Jvxdkj6516 Amos RoadDublin [place] [id number] Folate (Folic Acid), Serum 8.4 ng/mL (Normal) Comments: A serum folate concentration of less than 3.1 ng/mL isconsidered to represent clinical deficiency. 05-Oyb-202588:26 VITAMIN B-12 (CYANOCOBALAMIN) Comments: PATIENT NOT FASTINGPERFORMED BY: CB [facility] Xefpnq7502 Amos RoadDublin [place] [id number] (54098) Vitamin B12 280 pg/mL (Normal) Range: 211-946 52-Gvh-351162:26 TSH (89035) Comments: PATIENT NOT FASTINGPERFORMED BY: CB [facility] Syrlfs7503 Amos RoadDublin [place] [id number] TSH 1.730 {uIU/mL} (Normal) Range: 0.450-4.500 48-Xoz-630865:26 SED RATE ERYTHROCYTE (77564) Comments: PATIENT NOT FASTINGPERFORMED BY: CB [facility] Guojxh5722 Amos RoadDublin [place] [id number] Sedimentation Rate-Westergren 48 mm/h (Abnormal) Range: 0-32 07-Eit-157435:26 RHEUMATOID FACTOR-QUANT (40054) Comments: PATIENT NOT FASTINGPERFORMED BY: CB [facility] Ibeydu5978 Amos RoadDublin [place] [id number] RA Latex Turbid. 13.3 {IU/mL} (Normal) Range: 0.0-13.9 27-Ksx-195931:26 METABOLIC PANEL, Comments: PATIENT NOT FASTINGPERFORMED BY: CB [facility] Vduizk5611 Amos RoadDublin [place] [id number] Information: [id number] COMPREHENSIVE (64643) ALT (SGPT) 21 [iU]/L (Normal) Range: 0-32 AST (SGOT) 14 [iU]/L (Normal) Range: 0-40 Alkaline Phosphatase, S 109 [iU]/L (Normal) Range: 39-117 Bilirubin, Total 0.5 mg/dL (Normal) Range: 0.0-1.2 A/G Ratio 1.3 (Normal) Range: 1.1-2.5 Globulin, Total 3.1 g/dL (Normal) Range: 1.5-4.5 Albumin, Serum 3.9 g/dL (Normal) Range: 3.5-5.5 Protein, Total, Serum 7.0 g/dL (Normal) Range: 6.0-8.5 Calcium, Serum 9.2 mg/dL (Normal) Range: 8.7-10.2 Carbon Dioxide, Total 22 mmol/L (Normal) Range: 18-29 Chloride, Serum 96 mmol/L (Abnormal) Range: 97-108 Potassium, Serum 4.1 mmol/L (Normal) Range: 3.5-5.2 Sodium, Serum 135 mmol/L (Normal) Range: 134-144 BUN/Creatinine Ratio 11 (Normal) Range: 8-20 eGFR If Africn Am 109 mL/min/1.73 (Normal) eGFR If NonAfricn Am 94 mL/min/1.73 (Normal) Creatinine, Serum 0.81 mg/dL (Normal) Range: 0.57-1.00 BUN 9 mg/dL (Normal) Range: 6-20 Glucose, Serum 101 mg/dL (Abnormal) Range: 65-99 66-Grl-575628:26 C-REACTIVE PROTEIN (72929) Comments: PATIENT NOT FASTINGPERFORMED BY: NGDATA70 [address] [facility] [id number] C-Reactive Protein, Quant 157.4 mg/L (Abnormal) Range: 0.0-4.9 32-Fmx-778427:26 CBC (AUTO) (30364) Comments: PATIENT NOT FASTINGPERFORMED BY: Airstone Muthhe8594 [address] [facility] [id number] Platelets 275 {x10E3/uL} (Normal) Range: 150-379 RDW 13.4 % (Normal) Range: 12.3-15.4 MCHC 33.9 g/dL (Normal) Range: 31.5-35.7 MCH 29.6 pg (Normal) Range: 26.6-33.0 MCV 87 fL (Normal) Range: 79-97 Hematocrit 39.2 % (Normal) Range: 34.0-46.6 Hemoglobin 13.3 g/dL (Normal) Range: 11.1-15.9 RBC 4.50 {x10E6/uL} (Normal) Range: 3.77-5.28 WBC 13.8 {x10E3/uL} (Abnormal) Range: 3.4-10.8 30-Prq-135552:26 KWAN (ANTINUCLEAR ANTIBODY) Comments: PATIENT NOT FASTINGPERFORMED BY: [facility] [id number] (79487) KWAN Direct Positive (Abnormal) 10-Jxj-371932:21 Sed Rate Erythrocyte (98581) Comments: PATIENT NOT FASTINGPERFORMED BY: [facility] [id number] Sedimentation Rate-Westergren 20 mm/h (Normal) Range: 0-32 03-Eeu-683230:21 Metabolic Panel, Comprehensive Comments: copy to Dr. sanchez; PATIENT NOT FASTINGPERFORMED BY: NGDATA70 [facility] [id number] (18020) ALT (SGPT) 23 [iU]/L (Normal) Range: 0-32 AST (SGOT) 13 [iU]/L (Normal) Range: 0-40 Alkaline Phosphatase, S 103 [iU]/L (Normal) Range: 39-117 Bilirubin, Total <0.2 mg/dL (Normal) Range: 0.0-1.2 A/G Ratio 1.4 (Normal) Range: 1.1-2.5 Globulin, Total 3.0 g/dL (Normal) Range: 1.5-4.5 Albumin, Serum 4.1 g/dL (Normal) Range: 3.5-5.5 Protein, Total, Serum 7.1 g/dL (Normal) Range: 6.0-8.5 Calcium, Serum 9.7 mg/dL (Normal) Range: 8.7-10.2 Carbon Dioxide, Total 23 mmol/L (Normal) Range: 18-29 Chloride, Serum 99 mmol/L (Normal) Range: 97-108 Potassium, Serum 4.0 mmol/L (Normal) Range: 3.5-5.2 Sodium, Serum 139 mmol/L (Normal) Range: 134-144 BUN/Creatinine Ratio 13 (Normal) Range: 8-20 eGFR If Africn Am 107 mL/min/1.73 (Normal) eGFR If NonAfricn Am 93 mL/min/1.73 (Normal) Creatinine, Serum 0.82 mg/dL (Normal) Range: 0.57-1.00 BUN 11 mg/dL (Normal) Range: 6-20 Glucose, Serum 112 mg/dL (Abnormal) Range: 65-99 57-Lfm-282028:21 CBC, Platelets & Auto Comments: PATIENT NOT FASTINGPERFORMED BY: [facility] Byhoai[address] [facility] [id number] Information: [id number] Diff (90855) Immature Grans (Abs) 0.0 {x10E3/uL} (Normal) Range: 0.0-0.1 Immature Granulocytes 0 % (Normal) Baso (Absolute) 0.0 {x10E3/uL} (Normal) Range: 0.0-0.2 Eos (Absolute) 0.2 {x10E3/uL} (Normal) Range: 0.0-0.4 Monocytes(Absolute) 0.4 {x10E3/uL} (Normal) Range: 0.1-0.9 Lymphs (Absolute) 2.5 {x10E3/uL} (Normal) Range: 0.7-3.1 Neutrophils (Absolute) 7.9 {x10E3/uL} (Abnormal) Range: 1.4-7.0 Basos 0 % (Normal) Eos 2 % (Normal) Monocytes 4 % (Normal) Lymphs 22 % (Normal) Neutrophils 72 % (Normal) Platelets 284 {x10E3/uL} (Normal) Range: 150-379 RDW 13.4 % (Normal) Range: 12.3-15.4 MCHC 34.6 g/dL (Normal) Range: 31.5-35.7 MCH 29.6 pg (Normal) Range: 26.6-33.0 MCV 85 fL (Normal) Range: 79-97 Hematocrit 39.9 % (Normal) Range: 34.0-46.6 Hemoglobin 13.8 g/dL (Normal) Range: 11.1-15.9 RBC 4.67 {x10E6/uL} (Normal) Range: 3.77-5.28 WBC 11.0 {x10E3/uL} (Abnormal) Range: 3.4-10.8 52-Het-720734:21 Lipase (51979) Comments: PATIENT NOT FASTINGPERFORMED BY: [facility] Fsvfrd6909 [address] [facility] [id number] Lipase, Serum 33 U/L (Normal) Range: 0-59 87-Ckv-952773:23 GALLBLADDER See Note (Normal) Comments: Test performed at:[facility] [address] [place], [place] [address] Comments: Patient: SANDRA RATLIFF : 1980 (34/F) Acct Num: [id number] Phys: Yohan HARGROVE,Vi Unit Num: [id number] Loc: [facility] [place] Specimen: [id number] Received: 02/02/151541 Spec Type: GALL BLADDE TISSUES TISSUES: CULTURE RESULTS No results available. GROSS DESCRIPTION Received is one container designated gallbladder. The specimen consists of anopened gallbladd er measuring 10.5 x 2.5 x 2 cm. The specimen container contains multiple calculi and fragments of calculi ranging in size from less than 0.1 cm to 0.7 cm in greatest dimension. A number of these calcul i are noted to be impacted in the cystic duct. The external surface is pink- montalvo, smooth and glistening for the most part. Focally, it is granular, hemorrhagic and containscautery artifact. The gallbl adder wall measures 0.3 cm in average thickness andis free of mass lesions. Commercial Account Manager sections of the gallbladder and the cystic duct are submitted in one cassette. / AM: 02/03/15 TC:3 CPT: 8 8304 HEADER OPERATION: Lap, cholecystectomy PRE-OP DIAGNOSIS: Calculus of gallbladder with acute cholecystitis TISSUE SUBMITTED: Gallbladder MICROSCOPIC DESCRIPTION Slides are reviewed. MICROSCOPIC DIAGNOSIS Gallbladder, cholecystectomy: Chronic cholecystitis and cholelithiasis. AM: 02/04/15 Signed Tr Schwabih 02/04/15 <signature on file> 53-Kjp-686663:10 ,Urine Comments: Test performed at:[facility] [address] [place] [address] ; ordered by another doctor HCGUQUAL Negative {Negative} (Normal) Comments: Very dilute urine specimens, as indicated by a low specificgravity, may not contain automobile sales representative levels of hCG.If is still suspected, a first morning urinespecimen should be collected 48 hours later and tested. :45 Basic Metabolic Profile (BMP) Comments: Test performed at:[facility] [address] [place] [address] GAP 10 (Normal) Range: 5-15 CO2 26.0 mmol/L (Normal) Range: 21.0-32.0 CL 103 mmol/L (Normal) Range: 98-107 K 4.0 mmol/L (Normal) Range: 3.5-5.1 NA 139 mmol/L (Normal) Range: 136-145 CA 8.9 mg/dL (Normal) Range: 8.5-10.1 BUN/CRE 13.7 {RATIO} (Normal) Range: 10-20 Estimated CRCL 87.20 ml/min (Normal) EST GFR - AA 87 mL/min (Normal) EST GFR 72 mL/min (Normal) CREAT,SERUM 0.95 mg/dL (Normal) Range: 0.55-1.20 Comments: Please note revised CREATININE reference range husqcfhrg85/22/2015. BUN 13 mg/dL (Normal) Range: 7-18 GLU 112 mg/dL (Abnormal) Range: 70-110 Comments: Fasting Glucose result from 110 to <126 mg/dLsuggests IMPAIRED HOMEOSTASIS per A.D.A. criteria. :45 CBC W/Diff, Automated Comments: Test performed at:[facility] [address] [facility] [place] [address] Absolute Lymph 4.26 {X10_3/ul} (Normal) Range: 0.83-4.51 Absolute Neut 7.2 {X10_3/uL} (Normal) Range: 2.0-7.7 IM GRAN % 0.300 % (Normal) Range: 0.0-0.9 Comments: IG% - Immature Granulocytes (promyelocytes, myelocytes andmetamyelocytes) > 1% indicates that a LEFT SHIFT is Present. BASO% 0.2 % (Normal) Range: 0-1 EO% 2.7 % (Normal) Range: 0-5 MONO% 5.2 % (Normal) Range: 0-10 LY% 34.0 % (Normal) Range: 19-41 NEUT% 57.6 % (Normal) Range: 47-70 MPV 10.6 fL (Normal) Range: 6.2-12.0 PLT 243 K/mm3 (Normal) Range: 150-450 RDW SD 40.1 fL (Normal) Range: 35.1-43.9 RDW CV 12.5 % (Normal) Range: 11.6-14.6 MCHC 34.4 {g/gl} (Normal) Range: 32-36 MCH 30.4 pg (Normal) Range: 27.0-32.0 MCV 88.4 fL (Normal) Range: 81-99 HCT 43.6 % (Normal) Range: 37-47 HGB 15.0 g/dL (Normal) Range: 12.0-15.0 RBC 4.93 {M/mm3} (Normal) Range: 4.2-5.4 WBC 12.5 K/mm3 (Abnormal) Range: 4.4-11.0 :45 Lipase Comments: Test performed at:[facility] [address] [place] [address] LIPASE 136 U/L (Normal) Range: 73-393 :45 Liver Profile Comments: Test performed at:[facility] [address] [place] [address] [id number] D BILI < 0.05 mg/dL (Normal) Range: 0.00-0.30 T BILI 0.20 mg/dL (Normal) Range: 0.20-1.00 ALT 17 U/L (Normal) Range: 12-78 ALK P 74 U/L (Normal) Range: 50-136 AST 11 U/L (Abnormal) Range: 15-37 GLOB 4.5 g/dL (Abnormal) Range: 2.3-3.5 ALB 3.2 g/dL (Abnormal) Range: 3.4-5.0 T PROT 7.7 g/dL (Normal) Range: 6.4-8.2 :45 ,Urine Comments: Order Date: 02/01/15How was Urine Obtained? CLEAN CATCHTest performed at:[facility] [address]fd[address] [facility] [address] [place], [place] [address] HCGUQUAL Negative {Negative} (Normal) Comments: Very dilute urine specimens, as indicated by a low specificgravity, may not contain automobile sales representative levels of hCG.If is still suspected, a first morning urinespecimen should be collected 48 hours later and tested. :45 Urinalysis, Complete Comments: Order Date: 02/01/15How was Urine Obtained? CLEAN CATCHTest performed at:[facility] [address]kg[address] [facility] [place], [place] [id number] MUCUS, URINE 0 SEEN {/hpf} (Normal) BACTERIA 0 SEEN {/hpf} (Normal) SQUAM EPI 0-5 SEEN {/hpf} (Normal) Range: 5-10 RBC-UA 0-5 SEEN {/hpf} (Normal) Range: 0-5 WBC 0 SEEN {/hpf} (Normal) Range: 0-5 LEUK ESTERASE Negative /ul (Normal) OCCULT BLOOD-UR 10 /ul (Abnormal) NITRITE UR Negative (Normal) UROBILI Normal mg/dL (Normal) PROT DIPSTX Negative mg/dL (Normal) pH UR 6.0 (Normal) Range: 5.0 - 8.0 SP.GR. DIPSTX 1.020 (Normal) Range: 1.002-1.030 KETONE UR Negative mg/dL (Normal) BILIRUBIN URINE Negative mg/dL (Normal) GLUCOSE, UR Normal mg/dL (Normal) CLARITY Clear (Normal) COLOR Yellow (Normal) 1-Ids-847853:45 CALCIFIDIOL (68156) VIT D 25 Comments: PATIENT NOT FASTINGPERFORMED BY: [facility] Qaswqe[address] [facility] [id number] Vitamin D, 25-Hydroxy 42.1 ng/mL (Normal) Range: 30.0-100.0 Comments: Vitamin D deficiency has been defined by the Graham ofMedicine and an Endocrine Society practice guideline as alevel of serum 25-OH vitamin D less than 20 ng/mL (1,2).The Endocrine Society went on to further define vitamin Dinsufficiency as a level between 21 and 29 ng/mL (2).1. IOM (Graham of Medicine). 2010. Dietary reference intakes for calcium and D. [place]: The National Academies Press.2. Clari MF, Jose LEES, Ash NETTLES, et al. Evaluation, treatment, and prevention of vitamin D deficiency: an Endocrine Society clinical practice guideline. JCEM. 2010; 96(7):1911-30. 4-Xtx-585350:45 Metabolic Panel, Basic Comments: PATIENT NOT FASTINGPERFORMED BY: [facility] [id number] Information: [id number] (87182) Calcium, Serum 9.6 mg/dL (Normal) Range: 8.7-10.2 Carbon Dioxide, Total 21 mmol/L (Normal) Range: 18-29 Chloride, Serum 99 mmol/L (Normal) Range: 97-108 Potassium, Serum 4.1 mmol/L (Normal) Range: 3.5-5.2 Sodium, Serum 138 mmol/L (Normal) Range: 134-144 BUN/Creatinine Ratio 16 (Normal) Range: 8-20 eGFR If Africn Am 94 mL/min/1.73 (Normal) eGFR If NonAfricn Am 81 mL/min/1.73 (Normal) Creatinine, Serum 0.92 mg/dL (Normal) Range: 0.57-1.00 BUN 15 mg/dL (Normal) Range: 6-20 Glucose, Serum 100 mg/dL (Abnormal) Range: 65-99 39-Rxm-216118:50 Rapid Flu (53310 x 2) Influenza A Ag neg (Normal) :29 LIPID PANEL (38094) Comments: PATIENT WAS FASTINGPERFORMED BY: Airstone Awahie[address] [facility] [id number] Information: [id number] LDL/HDL Ratio 2.6 {ratio_units} (Normal) Range: 0.0-3.2 LDL Cholesterol Calc 115 mg/dL (Abnormal) Range: 0-99 HDL Cholesterol 45 mg/dL (Normal) Comments: According to ATP-III Guidelines, HDL-C >59 mg/dL is considered anegative risk factor for CHD. VLDL Cholesterol Rafal 24 mg/dL (Normal) Range: 5-40 Triglycerides 118 mg/dL (Normal) Range: 0-149 Cholesterol, Total 184 mg/dL (Normal) Range: 100-199 12-Jan-20139:50 Metabolic Panel, Comments: PATIENT NOT FASTINGPERFORMED BY: [facility]ys[facility] [facility] [id number] Information: [id number] Comprehensive (63028) ALT (SGPT) 25 [iU]/L (Normal) Range: 0-32 AST (SGOT) 21 [iU]/L (Normal) Range: 0-40 Alkaline Phosphatase, S 86 [iU]/L (Normal) Range: 25-150 Comments: Effective January 19, 2013 the reference interval for Alkaline Phosphatase, S will be changing to: Age Male Female 0 - 1 day 45 - 111 45 - 111 2 - 5 days 46 - 119 46 - 119 6 - 10 days 48 - 229 48 - 229 11 - 30 d ays 59 - 414 59 - 414 1 - 6 months 91 - 445 91 - 445 7 - 12 months 124 - 341 124 - 341 1 - 3 years 130 - 317 130 - 317 4 - 6 years 133 - 309 133 - 309 7 - 12 years 134 - 349 134 - 349 13 years 143 - 396 68 - 209 14 years 107 - 340 62 - 149 15 years 84 - 254 54 - 121 16 years 71 - 186 49 - 108 17 years 61 - 146 45 - 101 18 years 56 - 127 43 - 101 1 9 - 60 years 44 - 102 42 - 107 61 - 70 years 44 - 103 47 - 112 >70 years 44 - 105 45 - 108 Bilirubin, Total 0.4 mg/dL (Normal) Range: 0.0-1.2 A/G Ratio 1.4 (Normal) Range: 1.1-2.5 Globulin, Total 3.0 g/dL (Normal) Range: 1.5-4.5 Albumin, Serum 4.3 g/dL (Normal) Range: 3.5-5.5 Protein, Total, Serum 7.3 g/dL (Normal) Range: 6.0-8.5 Calcium, Serum 9.5 mg/dL (Normal) Range: 8.7-10.2 Carbon Dioxide, Total 22 mmol/L (Normal) Range: 19-28 Chloride, Serum 98 mmol/L (Normal) Range: 97-108 Potassium, Serum 4.2 mmol/L (Normal) Range: 3.5-5.2 Sodium, Serum 136 mmol/L (Normal) Range: 134-144 BUN/Creatinine Ratio 14 (Normal) Range: 8-20 eGFR If Africn Am 88 mL/min/1.73 (Normal) eGFR If NonAfricn Am 77 mL/min/1.73 (Normal) Creatinine, Serum 0.98 mg/dL (Normal) Range: 0.57-1.00 BUN 14 mg/dL (Normal) Range: 6-20 Glucose, Serum 87 mg/dL (Normal) Range: 65-99 :50 CALCIFEDIOL (35850) Comments: PATIENT NOT FASTINGPERFORMED BY: [facility] [facility] [id number] Vitamin D, 25-Hydroxy 42.6 ng/mL (Normal) Range: 30.0-100.0 Comments: Vitamin D deficiency has been defined by the Graham ofBrown [facility] Hospitalcine and an Endocrine Society practice guideline as alevel of serum 25-OH vitamin D less than 20 ng/mL (1,2).The Endocrine Society went on to further define vitamin Dinsufficiency as a level between 21 and 29 ng/mL (2).1. IOM (Graham of Medicine). 2010. Dietary reference intakes for calcium and D. [place]: The National Academies Press.2. Clari MF, Jose NC, Ash NETTLES, et al. Evaluation, treatment, and prevention of vitamin D deficiency: an Endocrine Society clinical practice guideline. JCEM. 2010; 96(7):1911-30. 62-Raj-819670:08 CATU tDOP 108 ug/L (Normal) tDOP24 255 {ug/24_hr} (Normal) Range: 0-510 Comments: TESTING PERFORMED AT [facility]. ORIGINAL REPORT ON FILE IN LAB CONTAINS ADDITIONAL TEST SITE INFORMATION. tEPIN24 < 2 {ug/24_hr} (Normal) Range: 0-20 tNORE 16 ug/L (Normal) tNORE24 38 {ug/24_hr} (Normal) Range: 0-135 tEPIN < 1 ug/L (Normal) :08 KWESI 20.48 ug/dL (Normal) Range: 3.09-22.40 Comments: Adult (AM) 4.30 - 22.40 ug/dL Adult (PM) 3.09 - 16.66 ug/dL :08 DHEA 26.2 ug/dL (Abnormal) Range: 98.8-340.0 :08 METAU tMETA 24 ug/L (Normal) tMETA24 57 {ug/24_hr} (Normal) Range: 45-290 Comments: (Hypertensive) >17 years 11 months: 35 - 460 . Please note reference interval change tNORM24 219 {ug/24_hr} (Normal) Range: 82-500 Comments: (Hypertensive) >17 years 11 months: 110 - 1050 tNORM 93 ug/L (Normal) :08 MISC . (Normal) Comments: TEST RESULT RHKISP77-Llrspyhakrpuarasexe, MS 17 [place] Pregnenolone, Serum MS < 10 ng/dL Reference Range: Adults: 53 - 357 TESTING PERFORMED AT [facility]. ORIGINAL REPORT ON FILE IN LAB CONTAINS ADDITIONAL TEST SITE INFORMATION. :08 PROL 10.2 ng/mL (Normal) Range: 4.8-23.3 :08 TESTOF <0.2 pg/mL (Normal) Range: 0.0-2.2 Comments: Performed at: - [facility] [address] [id number] Director: Davide Jordan MD, Phone: [phone] at: - [facility] [place] [id number] Director: Andra Reyes MD, Phone: [phone] :[phone] VMA tVMA24 3.1 {mg/24_hr} (Normal) Range: 0.0-7.5 tVMA 1.3 mg/L (Normal) :51 BMP GAP 9 (Normal) Range: 5-15 CO2 27.0 mmol/L (Normal) Range: 21.0-32.0 CL 101 mmol/L (Normal) Range: 98-107 K 4.4 mmol/L (Normal) Range: 3.5-5.1 NA 137 mmol/L (Normal) Range: 136-145 CA 9.1 mg/dL (Normal) Range: 8.5-10.1 BUN/CRE 15.6 {RATIO} (Normal) Range: 10-20 EST GFR - AA 95 mL/min (Normal) EST GFR 78 mL/min (Normal) CREAT,SERUM 0.9 mg/dL (Normal) Range: 0.6-1.0 BUN 14 mg/dL (Normal) Range: 7-18 GLU 92 mg/dL (Normal) Range: 70-110 :56 VIT D,25 26540 33.7 ng/mL (Normal) Range: 30.0-100.0 Comments: Vitamin D deficiency has been defined by the Graham ofMedicine and an Endocrine Society practice guideline as alevel of serum 25-OH vitamin D less than 20 ng/mL (1,2).The Endocrine Society went on to further define vitamin Dinsufficiency as a level between 21 and 29 ng/mL (2).1. IOM (Graham of Medicine). 2011. Dietary reference intakes for calcium and D. [place]: The National Academies Press.2. Clari MF, Jose NC, Ash NETTLES, et al. Evaluation, treatment, and prevention of vitamin D deficiency: an Endocrine Society clinical practice guideline. JCEM. 2010; 96(7): 1911-30.Performed at: [facility] Lab[address] [id number] Director: Andra Reyes MD, Phone: [phone] 43-Tkr-607114:57 MICROALB:CRE UR MALB:CREAT 25.7 {mg/g_CRE} (Normal) MICROALBUMIN,UR 40.9 mg/L (Normal) UR CREAT 159.1 mg/dL (Normal) 7-Dli-378140:09 MYOCARD PERF STRESS/REST MULT Radiology Report See Note (Normal) Comments: EXERCISE MYOCARDIAL PERFUSION SCAN BNXFPRAZyousk-vsvj-zfa with a history of hypertension and abnormal EKG. KRYRPRCIB75 mCi of Sestamibi was injected at rest. The patient exercisedaccording to the regul ar Miguel protocol for 7 minutes and 31 secondsattaining 95% of maximum predicted heart rate, and a workload of 9.3METs. At peak exercise 45 mCi of Sestamibi was then injected. Stressimages were then ob tained. Stress and rest images were reconstructed andcompared in the short axis, vertical long and horizontal long axes.Gated images were also obtained. RESULTSReview of the stress images demonstrate n ormal uptake of tracer noted inall areas of the myocardium. The resting images similarly demonstratenormal uptake of tracer in all areas of the myocardium. The estimatedejection fraction is 66%. CONCL USION1. Normal exercise myocardial perfusion scan at a moderately highworkload.2. Preserved ejection fraction. Dictated on 03/09/11 1153 by Grzegorz Boyle MDrilTranscribed on 03/09/11 1209 by Kaylan CALVIN gn by Grzegorz Boyle MDril on 03/10/11 1446 Sign by: Stephane Boyle MD : VIT D,25 02266 28.7 ng/mL Range: 32.0-100.0 10 (Abnormal) Comments: Recent studies consider the lower limit of 32.0 ng/mL to guy threshold for optimal health.Rakan BOWENS. J Nutr. 2004;135(2):317- 22.Performed at: - [facility] [address] [id number]Lab Director: Andra Reyes MD, Phone: [phone] TSH 2.62 {uIU/mL} Range: 0.358-3.74 :41 (Normal) HCG QUANT. 1 m[iU]/mL (Normal) :00 LIPASE 138 U/L (Normal) Range: 70-290 :00 Comments: Please note:LIPASE revised reference range effective 09. DEEPIKA 47 U/L (Normal) Range: 25-115 :00 :00 COMP METABOLIC GAP 10 (Normal) Range: 5-15 CO2 27.0 mmol/L (Normal) Range: 21.0-32.0 CL 105 mmol/L (Normal) Range: 98-107 K 4.1 mmol/L (Normal) Range: 3.5-5.1 NA 142 mmol/L (Normal) Range: 136-145 T BILI 0.40 mg/dL (Normal) Range: 0.00-1.00 ALT 30 U/L (Normal) Range: 12-78 ALK P 117 U/L (Normal) Range: 50-136 AST 10 U/L (Abnormal) Range: 15-37 CA 9.7 mg/dL (Normal) Range: 8.5-10.1 A/G 1.2 {RATIO} (Normal) Range: 0.9-2.4 GLOB 3.4 g/dL (Normal) Range: 2.7-4.2 ALB 4.1 g/dL (Normal) Range: 3.4-5.0 T PROT 7.5 g/dL (Normal) Range: 6.4-8.2 BUN/CRE 18.8 {RATIO} (Normal) Range: 10-20 EST GFR - AA 109 mL/min (Normal) EST GFR 90 mL/min (Normal) CREAT,SERUM 0.8 mg/dL (Normal) Range: 0.6-1.0 BUN 15 mg/dL (Normal) Range: 7-18 GLU 78 mg/dL (Normal) Range: 70-110 :57 CBCD,SMEAR DIFF RED CELL MORPH SeeNote {NORMAL} (Normal) Comments: Result: NORM C+C EOS 3 % (Normal) Range: 0-5 PLT EST SeeNote (Normal) Comments: Result: ADEQUATE CELLS COUNTED 100 (Normal) LYMPH 26 % (Normal) Range: 19-41 MONOCYTE 8 % (Normal) Range: 0-10 SEGS 63 % (Normal) Range: 47-70 ABSOLUTE NEUT 5.0 3/uL (Normal) Range: 2.0-7.7 PLT 215 K/mm3 (Normal) Range: 150-450 RDW 12.6 % (Normal) Range: 11.6-14.6 MCH 30.7 pg (Normal) Range: 27.0-32.0 MCHC 34.5 g/dL (Normal) Range: 32-36 HCT 39.5 % (Normal) Range: 37-47 MCV 89.1 fL (Normal) Range: 81-99 HGB 13.6 g/dL (Normal) Range: 12.0-16.0 RBC 4.43 {M/mm3} (Normal) Range: 4.2-5.4 WBC 7.9 K/mm3 (Normal) Range: 4.4-11.0 :57 COMP METABOLIC GAP 13 (Normal) Range: 5-15 CL 104 mmol/L (Normal) Range: 98-107 CO2 26.0 mmol/L (Normal) Range: 21.0-32.0 K 4.1 mmol/L (Normal) Range: 3.5-5.1 NA 143 mmol/L (Normal) Range: 136-145 T BILI 0.50 mg/dL (Normal) Range: 0.00-1.00 ALT 38 U/L (Normal) Range: 12-78 ALK P 105 U/L (Normal) Range: 50-136 AST 20 U/L (Normal) Range: 15-37 CA 9.8 mg/dL (Normal) Range: 8.5-10.1 A/G 1.1 {RATIO} (Normal) Range: 0.9-2.4 ALB 3.8 g/dL (Normal) Range: 3.4-5.0 GLOB 3.4 g/dL (Normal) Range: 2.7-4.2 T PROT 7.2 g/dL (Normal) Range: 6.4-8.2 BUN/CRE 13.3 {RATIO} (Normal) Range: 10-20 EST GFR - AA 95 mL/min (Normal) CREAT,SERUM 0.9 mg/dL (Normal) Range: 0.6-1.0 EST GFR 78 mL/min (Normal) BUN 12 mg/dL (Normal) Range: 7-18 GLU 81 mg/dL (Normal) Range: 70-110 :57 TSH 2.15 {uIU/mL} (Normal) Range: 0.358-3.74 :35 CULTURE, THROAT See Note (Normal) Comments: Penicillin is the drug of choice for Beta Streptococcalinfections. For Penicillin allergic patients, Erythromycinmay be used. AMOUNT GROWTH 1+ ORGANISM 1: GROUP A BETA STREPTOCOCCUS :28 Rapid Strep Test, Office (49268) Rapid Strep Test, Office Negative (Normal) :39 HCG QUANT. 88402 m[iU]/mL (Abnormal) :39 ,SERUM HCGSQUAL SeeNote m[iU]/mL (Normal) Range: 0-9 Nonpreg Comments: Result: POSITIVE > 10 Plan of Care Name Dates Details Instructions Encounter for general adult medical examination with abnormal findings : Eprescribed prescriptions (G8553) Indication: Encounter for general adult medical examination with abnormal findings Well woman exam (Renamed from Encounter for well woman exam) : Pap/Pelvic/Bimanual/Rectal/Breast Exam was done. Indication: Well woman exam (Renamed from Encounter for well woman exam) Well woman exam (Renamed from Encounter for well woman exam) : Mammogram *: gynecological health Indication: Well woman exam (Renamed from Encounter for well woman exam) Current nonsmoker (Renamed from Current non-smoker) : Eprescribed prescriptions (G8553) Indication: Current nonsmoker (Renamed from Current non-smoker) Plantar fasciitis, bilateral : Plantar Fasciitis *: heel pain Indication: Plantar fasciitis, bilateral Sinusitis, bacterial : *URI Treatment Indication: Sinusitis, bacterial Sinusitis, bacterial : *URI Symptoms Indication: Sinusitis, bacterial Sinusitis, bacterial : *Antibiotic Usage Education - Female Indication: Sinusitis, bacterial Sinusitis, bacterial : Eprescribed prescriptions (G8553) Indication: Sinusitis, bacterial BMI 45.0-49.9, adult : Eprescribed prescriptions (G8553) Indication: BMI 45.0-49.9, adult BMI 45.0-49.9, adult : Eprescribed prescriptions (G8553) Indication: BMI 45.0-49.9, adult Encounter for general adult medical examination with abnormal findings : Self breast exam Indication: Encounter for general adult medical examination with abnormal findings BMI 40.0-44.9, adult : *Weight Loss Discussion Indication: BMI 40.0-44.9, adult Abdominal pain, acute : Flu (Influenza) *: flu Indication: Abdominal pain, acute Abdominal pain, acute : Eprescribed prescriptions (G8553) Indication: Abdominal pain, acute Headache : Reviewed Lab Indication: Headache Abdominal pain : Reviewed Diagnostic Tests Indication: Abdominal pain Abdominal pain : Reviewed Lab Indication: Abdominal pain HELLP syndrome, antepartum : Follow up in 1 week Indication: HELLP syndrome, antepartum HELLP syndrome, antepartum : Follow up in 3 months Indication: HELLP syndrome, antepartum Nausea and/or vomiting : Follow up in 2 days Indication: Nausea and/or vomiting Fatigue : *fatigue education Indication: Fatigue Abdominal wall mass of left upper quadrant : Eprescribed prescriptions (G8553) Indication: Abdominal wall mass of left upper quadrant RUQ pain : Eprescribed prescriptions (G8553) Indication: RUQ pain Allergic reaction to penicillin : Allergies: allergic reaction Indication: Allergic reaction to penicillin Allergic reaction to penicillin : Eprescribed prescriptions (G8553) Indication: Allergic reaction to penicillin Anxiety : Eprescribed prescriptions (G8553) Indication: Anxiety Obesity, unspecified : Obesity *: exercise Indication: Obesity, unspecified Elevated blood-pressure reading without diagnosis of hypertension : Follow up in 3 months Indication: Elevated blood-pressure reading without diagnosis of hypertension Elevated blood-pressure reading without diagnosis of hypertension : Follow up in 1 week [facility] Indication: Elevated blood-pressure reading without diagnosis of hypertension Abnormal EKG : Follow up in 2 weeks with MEC or DB Indication: Abnormal EKG Palpitations : *palpitation discusssion Indication: Palpitations Elevated blood-pressure reading without diagnosis of hypertension : BP MONITORING - SELF Indication: Elevated blood-pressure reading without diagnosis of hypertension Planned Observations Food Allergy Profile (80180)Indication: Allergic to food (Renamed from Food allergy) On: :28 Request T4, FREE (THYROXINE) (38181)Indication: Abnormal thyroid blood test On: :22 Request TSH (88266)Indication: Abnormal thyroid blood test On: :22 Request CALCIFIDIOL (98403) VIT D 25Indication: Vitamin D deficiency, unspecified On: : Request CBC (Auto) (43779)Indication: KWAN positive On: : Request Metabolic Panel, Comprehensive (51467)Indication: KWAN positive On: : Request Thin prep Pap (76160) (no STD testing)Indication: Well woman exam (Renamed from Encounter for well woman exam) On: :13 Request PT (Prothrobim Time) (62574)Indication: Preop examination On: 36 Request CBC WITH MANUAL DIFF (38181)Indication: Preop examination On: :36 Request T4, FREE (THYROXINE) (44617)Indication: Abnormal thyroid blood test On: Request TSH (93103)Indication: Abnormal thyroid blood test On: Request CALCIFIDIOL (02377) VIT D 25Indication: Vitamin D deficiency, unspecified On: Request MICROALBUMIN: CREATININE RATIO (65230) AND (11576)Indication: Proteinuria On: Request METABOLIC PANEL, COMPREHENSIVE (01778)Indication: Antiphospholipid syndrome On: Request CBC with auto diff (01313)Indication: Antiphospholipid syndrome On: Request LIPOPROTEIN, BLD, BY NMR (32548)Indication: Hyperlipidemia, unspecified hyperlipidemia type On: Request MICROALBUMIN: CREATININE RATIO (77664) AND (56854)Indication: Proteinuria On: : Request LEUKOCYTE COUNT, FECAL (07166)Indication: Abdominal pain, acute On: 05-Oxc-690790:10 Request OVA & PARASITE DIR SMEAR (66831)Indication: Abdominal pain, acute On: 05-Krg-173751:10 Request Clostridium difficile Toxin A+B, EIA (22527)Indication: Abdominal pain, acute On: 83-Ppm-812199:10 Request AUTUMN CULTURE-STOOL (24412)Indication: Abdominal pain, acute On: 99-Kmg-935018:10 Request Rapid Flu (09564 x 2)Indication: Flu-like symptoms On: 45-Ucm-845640:01 Request EB ANTIBODY NUCLR ANTIGN (37691)Indication: Fatigue On: 19-Irf-129377:01 Request Rapid Flu (30977 x 2)Indication: Fever and chills On: 56-Pet-975678:00 Request POTASSIUM SERUM (00728)Indication: Hypokalemia On: 9-Joc-685153:48 Request PROLACTIN (98818)Indication: Amenorrhea On: :56 Request DHEA-S (DEHYDROEPIANDROSTERONE SULFATE) (50476)Indication: Amenorrhea On: :55 Request TESTOSTERONE FREE (34370)Indication: Amenorrhea On: :55 Request 17-HYDROXYPREGNENOLONE (65969)Indication: Amenorrhea On: :52 Request CORTISOL FREE (85796)Indication: Elevated blood-pressure reading without diagnosis of hypertension On: :49 Request METANEPHRINES - URINE (18819)Indication: Elevated blood-pressure reading without diagnosis of hypertension On: :49 Request CATECHOLAMINES TOTAL, URINE (56363)Indication: Elevated blood-pressure reading without diagnosis of hypertension On: :49 Request URINE VMA (10406)Indication: Elevated blood-pressure reading without diagnosis of hypertension On: :49 Request Metabolic Panel, Basic (88787)Indication: Stress reaction On: :29 Request MICROALBUMIN: CREATININE RATIO (81902) AND (67031)Indication: Unspecified Diagnosis On: 68-Qil-012182:18 Request CALCIFEDIOL (80095)Indication: Elevated blood-pressure reading without diagnosis of hypertension On: 41-Xmu-234882:14 Request TSH (39849)Indication: Elevated blood-pressure reading without diagnosis of hypertension On: 83-Bno-970916:13 Request METABOLIC PANEL, COMPREHENSIVE (05214)Indication: Nausea On: :40 Request Lipase (32270)Indication: Nausea On: 95-Azr-597036:40 Request TEST - SERUM QUANTITATIVE (HCG) (20657)Indication: Amenorrhea On: :40 Request Amylase (30695)Indication: Nausea On: :40 Request METABOLIC PANEL, COMPREHENSIVE (96119)Indication: Palpitations On: :47 Request CBC WITH MANUAL DIFF (38420)Indication: Palpitations On: :47 Request TSH (97243)Indication: Palpitations On: :47 Request AUTUMN CULTURE-OTHER (80672)Indication: Acute pharyngitis On: :28 Request BHCG (HUMAN CHORIONIC GONADOTROPIN - BETA) (88825)Indication: Amenorrhea On: 30-Llt-711018:22 Request HCG (HUMAN CHORIONIC GONADOTROPIN) (63779)Indication: Amenorrhea On: 70-Yhw-790236:22 Request Planned Encounters Medical; [facility] 2 Month FU - On: 26-Jun-2018 9:15 [facility] Jensen HARGROVE, Michelle Riley MD Planned Procedures MRI OF LEFT KNEE WITHOUT CONTRAST On: 20-Feb-2018 Intent ([id number])By: Michelle Reaves MD Comments: will plan for 4 weeks. Michelle HARGROVE DRAIN/INJECT MAJOR JOINT OR BURSA On: 10-Feb-2018 Intent (21166)By: Michelle Reaves MD Comments: 2 cc Marcaine lot# [id number] 1 cc kenalog lot# [id number] exp rte: left knee intra articular dose: as above given by:Dr. Reaves ABN signedER, Michelle MIRANDA MD Radiology - Knee - Left - Weight On: 07-Feb-2018 Intent BearingBy: Michelle Reaves MD, MD, Dana M SPECIMEN HNDLNG/TRNSPRT, OFFC > LAB On: 18-Jun-2016 Intent (21286)By: Michelle Reaves MD, MD, Dana M SPECIMEN HNDLNG/TRNSPRT, OFFC > LAB On: 04-Jun-2016 Intent ([id number])By: Michelle Reaves MD, MD, Dana M Radiology - Small Bowel Series On: 18-Nov-2015 Intent ([id number])By: Michelle Reaves MD, MD, Dana M Radiology - KUBBy: Kirsten Arias CNP On: 31-Aug-2015 Intent Comments: call to [facility] INFUSION, NORMAL SALINE SOLUTION , On: 31-Aug-2015 Intent 1000 CC (Special Coverage Comments: 1000 ccIVleft antecub.tolerated well22 guagelot [id number] 03/2017as, MILIEU TECHNICIAN Instructions Apply. See MCM: 2049) ([id number])By: Kirsten Arias CNP Ultrasound - PelvisBy: Jensen HARGROVE, On: 26-Jul-2015 Intent Michelle Riley MD Comments: attention adrenal glad CT - Abdomen & Pelvis (IV Contrast On: 19-Jul-2015 Intent Needed)By: Yady Weston Ultrasound - Abdomen (Limited Area or On: 31-May-2015 Intent Organs)By: Michelle Reaves MD, MD, Dana M UGI (With air contrast if On: 01-Feb-2015 Intent necessary)By: Michelle Reaves MD, MD, Dana M Ultrasound - GallbladderBy: Jensen On: 01-Feb-2015 Intent Michelle HARGROVE MD, Dana M Comments: right now call ih wet read. ELECTROCARDIOGRAM, COMPLETE (ECG) On: 19-Jan-2014 Intent (88072)By: Michelle Reaves MD, MD, Dana M Eprescribed prescriptions (G8553)By: On: 02-Jun-2013 Intent Long MILIEU TECHNICIAN, Kathy L EKG (89343)By: Michelle Reaves MD On: 27-Jan-2013 Intent Michelle Reaves MD Comments: see scanned document of test done to see results reviewed today with patient Eprescribed prescriptions (G8553)By: On: 27-Jan-2013 Intent Long MILIEU TECHNICIAN, Kathy L TDAP VACCINE >7 IM (34493)By: Jensen On: 30-Apr-2011 Intent Michelle HARGROVE MD, Dana M FLU VAC, SPLIT, >3 YEARS, INTRAMUSC On: 30-Apr-2011 Intent (80720)By: PHILLIP Leigh Comments: Lot #:[id number] date:mount given:0.5mlRoute: IMSite given:left deltoid Given by: LANDONryrenetta IMMUNIZ ADMNIN, 1 VAC, SNGL/COMBO On: 30-Apr-2011 Intent (89672)By: PHILLIP Leigh Nuclear Stress Test/Stress On: 05-Mar-2011 Intent SPECT/TreadmillBy: Kirsten Arias CNP ELECTROCARDIOGRAM, COMPLETE (ECG) On: 05-Mar-2011 Intent ([id number])By: Kirsten Arias CNP Bio Z (57248)By: Kirsten Arias CNP On: 05-Mar-2011 Intent Holter Moniter ([id number])By: Pop HORAN, On: 29-Nov-2010 Intent Atiya EKG (07430)By: Indu Mai LPN On: 29-Nov-2010 Intent Comments: nsr IVCD - RBBB Planned Medications INFUSION, NORMAL SALINE SOLUTION , 1000 CC Ordered: 31-Aug-2015 Pending Kirsten Arias CNP Instructions Name Dates Details BMI 45.0-49.9, adult : How to access health information online Indication: BMI 45.0-49.9, adult BMI 45.0-49.9, adult : How to access health information online - Detail Indication: BMI 45.0-49.9, adult BMI 45.0-49.9, adult : Patient Instructions Indication: BMI 45.0-49.9, adult Left medial knee pain : How to access health information online Indication: Left medial knee pain Left medial knee pain : How to access health information online - Detail Indication: Left medial knee pain Left medial knee pain : Patient Instructions Indication: Left medial knee pain Rash : How to access health information online Indication: Rash Rash : How to access health information online Indication: Rash Rash : How to access health information online - Detail Indication: Rash Rash : Patient Instructions Indication: Rash Encounter for general adult medical examination with abnormal findings : How to access health information online Indication: Encounter for general adult medical examination with abnormal findings Encounter for general adult medical examination with abnormal findings : How to access health information online - Detail Indication: Encounter for general adult medical examination with abnormal findings Encounter for general adult medical examination with abnormal findings : Patient Instructions Indication: Encounter for general adult medical examination with abnormal findings Well woman exam (Renamed from Encounter for well woman exam) : How to access health information online Indication: Well woman exam (Renamed from Encounter for well woman exam) Well woman exam (Renamed from Encounter for well woman exam) : How to access health information online - Detail Indication: Well woman exam (Renamed from Encounter for well woman exam) Well woman exam (Renamed from Encounter for well woman exam) : Patient Instructions Indication: Well woman exam (Renamed from Encounter for well woman exam) Current nonsmoker (Renamed from Current non-smoker) : How to access health information online Indication: Current nonsmoker (Renamed from Current non-smoker) Current nonsmoker (Renamed from Current non-smoker) : How to access health information online - Detail Indication: Current nonsmoker (Renamed from Current non-smoker) Current nonsmoker (Renamed from Current non-smoker) : Patient Instructions Indication: Current nonsmoker (Renamed from Current non-smoker) BMI 45.0-49.9, adult : How to access health information online Indication: BMI 45.0-49.9, adult BMI 45.0-49.9, adult : How to access health information online - Detail Indication: BMI 45.0-49.9, adult BMI 45.0-49.9, adult : Patient Instructions Indication: BMI 45.0-49.9, adult Abnormal fasting glucose : How to access health information online Indication: Abnormal fasting glucose Abnormal fasting glucose : How to access health information online - Detail Indication: Abnormal fasting glucose Abnormal fasting glucose : Patient Instructions Indication: Abnormal fasting glucose Sinusitis, bacterial : How to access health information online Indication: Sinusitis, bacterial Sinusitis, bacterial : How to access health information online - Detail Indication: Sinusitis, bacterial Sinusitis, bacterial : Patient Instructions Indication: Sinusitis, bacterial BMI 45.0-49.9, adult : How to access health information online Indication: BMI 45.0-49.9, adult BMI 45.0-49.9, adult : How to access health information online - Detail Indication: BMI 45.0-49.9, adult BMI 45.0-49.9, adult : Patient Instructions Indication: BMI 45.0-49.9, adult BMI 45.0-49.9, adult : How to access health information online Indication: BMI 45.0-49.9, adult BMI 45.0-49.9, adult : How to access health information online - Detail Indication: BMI 45.0-49.9, adult BMI 45.0-49.9, adult : Patient Instructions Indication: BMI 45.0-49.9, adult Acute pharyngitis : How to access health information online Indication: Acute pharyngitis Acute pharyngitis : How to access health information online - Detail Indication: Acute pharyngitis Acute pharyngitis : Patient Instructions Indication: Acute pharyngitis BMI 40.0-44.9, adult : How to access health information online Indication: BMI 40.0-44.9, adult BMI 40.0-44.9, adult : How to access health information online - Detail Indication: BMI 40.0-44.9, adult BMI 40.0-44.9, adult : Patient Instructions Indication: BMI 40.0-44.9, adult Abdominal pain, acute : How to access health information online Indication: Abdominal pain, acute Abdominal pain, acute : How to access health information online - Detail Indication: Abdominal pain, acute Abdominal pain, acute : Patient Instructions Indication: Abdominal pain, acute Abdominal pain, acute : How to access health information online Indication: Abdominal pain, acute Abdominal pain, acute : How to access health information online - Detail Indication: Abdominal pain, acute Abdominal pain, acute : Patient Instructions Indication: Abdominal pain, acute Fatty liver : How to access health information online Indication: Fatty liver Fatty liver : How to access health information online - Detail Indication: Fatty liver Fatty liver : Patient Instructions Indication: Fatty liver Abdominal pain, acute : How to access health information online Indication: Abdominal pain, acute Abdominal pain, acute : How to access health information online - Detail Indication: Abdominal pain, acute Abdominal pain, acute : Patient Instructions Indication: Abdominal pain, acute Abdominal pain, acute : How to access health information online Indication: Abdominal pain, acute Abdominal pain, acute : How to access health information online - Detail Indication: Abdominal pain, acute Abdominal pain, acute : Patient Instructions Indication: Abdominal pain, acute KWAN positive : How to access health information online Indication: KWAN positive KWAN positive : How to access health information online - Detail Indication: KWAN positive KWAN positive : Patient Instructions Indication: KWAN positive HELLP syndrome, antepartum : Patient Instructions Indication: HELLP syndrome, antepartum Abdominal pain, acute : How to access health information online Indication: Abdominal pain, acute Abdominal pain, acute : How to access health information online - Detail Indication: Abdominal pain, acute Abdominal pain, acute : Patient Instructions Indication: Abdominal pain, acute Abdominal wall mass of left upper quadrant : How to access health information online Indication: Abdominal wall mass of left upper quadrant Abdominal wall mass of left upper quadrant : How to access health information online - Detail Indication: Abdominal wall mass of left upper quadrant Abdominal wall mass of left upper quadrant : Patient Instructions Indication: Abdominal wall mass of left upper quadrant RUQ pain : How to access health information online Indication: RUQ pain RUQ pain : How to access health information online - Detail Indication: RUQ pain RUQ pain : Patient Instructions Indication: RUQ pain Wrist pain, right : Patient Instructions Indication: Wrist pain, right Allergic reaction to penicillin : Patient Instructions Indication: Allergic reaction to penicillin Anxiety : Patient Instructions Indication: Anxiety Anxiety : Patient Instructions Indication: Anxiety Elevated blood-pressure reading without diagnosis of hypertension : Patient Instructions Indication: Elevated blood-pressure reading without diagnosis of hypertension Obesity, unspecified : Patient Instructions Indication: Obesity, unspecified Advance Directives Name Dates Details Immunization Registry [place] - Effective on Effective: 05-Jul-201707/05/2017. Expiration date unspecified Encounters Office Visit On: 11-Apr-2018 7:06 Encounter Reason: Follow up acute care visit - The patient does not feel well and improving. Patient has been compliant with instructions. Current medication use: no side effects and compliant with dosing regimen. Patien End: 11-Apr-2018 8:07 t sleeps 7 hours per night. Impact of disease: emotional impact-moderate. Nutrition: balanced diet and supplemental vitamins. The medical issues the patient is following up for include other (IBS knee pain).Encounter Diagnosis: BMI 45.0- 49.9, adult, Chondromalacia of left patella, Irritable bowel syndrome with diarrhea, Anxiety [facility] Office Visit On: 20-Feb-2018 9:17 Encounter Diagnosis: BMI 45.0-49.9, adult, Nonsmoker, Left medial knee pain, Irritable bowel syndrome with diarrhea, Anxiety End: 20-Feb-2018 10:06 [facility] Office Visit On: 10-Feb-2018 14:17 Encounter Reason: Injections - The medication the patient is here to receive is other (2 cc marcaine 1 cc kenalog left knee).Encounter Diagnosis: Left medial knee pain, Nonsmoker End: 10-Feb-2018 14:57 [facility] Phone Encounter On: 07-Feb-2018 15:51 Encounter Diagnosis: Left medial knee pain End: 07-Feb-2018 15:58 [facility] Office Visit On: 24-Jan-2018 8:44 Encounter Diagnosis: Rash, BMI 45.0-49.9, adult, Nonsmoker, Left medial knee pain, Anxiety, KWAN positive, Vitamin D deficiency, unspecified, Abnormal thyroid blood test, Irritable bowel syndrome with diarrhea, End: 24-Jan-2018 9:30 Allergic to food (Renamed from Food allergy) [facility] Phone Encounter On: 17-Dec-2017 8:22 Encounter Diagnosis: Tinea corporis End: 17-Dec-2017 8:31 [facility] Office Visit On: 05-Jul-2017 14:59 Encounter Reason: Follow up ER - Reason for hospitalization note: (foot infection, new). ??Hospitalization details include: skin problems Patient has been compliant with instructions. Current medication use: no side effe End: 05-Jul-2017 15:41 cts, compliant with dosing regimen and considered effective by patient. The patient feels well with minor complaints and has decreased energy level. Patient sleeps 6 hours per night. Impact of disease: emotional impact-mild. Nutrition: balanced diet and supplemental vitamins.Encounter Diagnosis: Infection of right foot, BMI 45.0-49.9, adult, Nonsmoker [facility] Office Visit On: 03-Jun-2017 7:59 Encounter Reason: Physical female exam - General health: feels well with no complaints, has good energy level and is sleeping well. The patient's appetite is normal. Nutrition: normal/adequate. Exercises 0 days per week. End: 06-Jun-2017 12:31 Sleeps on average 6 hours per night. Normal bowel and bladder habits. There are no current emotional problems. screening, colonoscopy (11/2015), screening, mammography (never) and screening, Pap smear (05/10/17).Encounter Diagnosis: Current nonsmoker (Renamed from Current non-smoker), Encounter for general adult medical examination with abnormal findings, Alopecia, Plantar fasciitis, bilateral, H/O leukocytosis, Anxiety, Restless sleeper, Fatigue, KWAN positive, Acid reflux, Abnormal fasting glucose, Family history of breast cancer, Abnormal thyroid blood test, Vitamin D deficiency, unspecified, Family history of heart disease, Amenorrhea, Proteinuria, OCD (obsessive compulsive disorder), Vaginal discharge, Anal discharge, Well woman exam (Renamed from Encounter for well woman exam), Stress reaction, Hyperlipidemia, unspecified hyperlipidemia type, Fatty liver, BMI 45.0-49.9, adult, HELLP syndrome, antepartum, Antiphospholipid syndrome, Obesity, unspecified, Bug bites, Hives, Sinusitis, bacterial, Abnormal lung function test [facility] Office Visit On: 10-May-2017 6:46 Encounter Reason: Well Women Exam - The patient feels well with minor complaints and has decreased energy level. Pap smear: date of last pap: (fall 2015). Contraceptive history: The current method of contraception is ora End: 10-May-2017 7:42 l contraceptives. Patient does not exercise. The patient's libido is normal. The patient reports that she performs monthly self breast exam. Calcium intake includes 2 serving(s) milk daily. The patient has been using oral contraceptives. Menstruation: Last menstrual period date: (04-29-17). Note for Well Women Exam: notice vaginala and anal discharge. notice streaks in underwear. will itch around a nus. on and off through day. 5 bowels movements a day and that is usual. not get mucous coming out. think vaginal discharge because on area of underwear. no odor to streaks on underwear and a brown. no vaginal itching. no dysparenia. Encounter Diagnosis: BMI 45.0-49.9, adult, Current nonsmoker (Renamed from Current non-smoker), Well woman exam (Renamed from Encounter for well woman exam), Vaginal discharge, Anal discharge [facility] Lab Order On: 09-May-2017 7:51 Encounter Diagnosis: Dysuria End: 09-May-2017 7:53 [facility] Office Visit On: 19-Feb-2017 11:38 Encounter Reason: Insect Bite/Sting - Symptoms include multiple insect bites or stings, redness at the site of the bite or sting and swelling at the site of the bite or sting. Symptoms are located on the left leg, right End: 19-Feb-2017 21:55 arm and right leg. Onset was sudden 10 day(s) ago. The symptoms occur constantly. The patient describes this as unchanged. Associated symptoms do not include fever. Note for Insect bite/sting: was in [place]- she got lots of bites not sure was itchy - tried benadryl spray and cortisone no help- and zyrtec some help started to swell a week later- this helped- son and didnt get any bites- in b each side bung[place]- opnly on legs- she feeling fine otherwise- not spreadingEncounter Diagnosis: BMI 45.0-49.9, adult, Current nonsmoker (Renamed from Current non- smoker), Hives, Bug bites [facility] Office Visit On: 05-Feb-2017 10:18 Encounter Reason: Follow up for chronic medical issues - The patient feels well with minor complaints and has decreased energy level. Patient has been compliant with instructions. Current medication use: no side effects, End: 05-Feb-2017 15:23 compliant with dosing regimen and considered effective by patient. Patient sleeps 7 hours per night. Impact of disease: emotional impact-mild. Nutrition: balanced diet and supplemental vitamins. The ok dical issues the patient is following up for include blood sugar issues, cardiac issues, depression, high blood pressure, high cholesterol and other (positive KWAN, HELP syndrome, fatty liver, alopecia, obesity, OCD, vitamin d def.). Encounter Diagnosis: BMI 45.0-49.9, adult, Current nonsmoker (Renamed from Current non-smoker), Plantar fasciitis, bilateral, H/O leukocytosis, Restless sleeper, Fatigue, Alopecia, KWAN positive, Acid reflux, Abnormal fasting glucose, Obesity, unspecified, Family history of breast cancer, Hyperlipidemia, unspecified hyperlipidemia type, Abnormal thyroid blood test, Vitamin D deficiency, unspecified, Family history of heart disease, Fatty liver, Anxiety, Stress reaction, HELLP syndrome, antepartum, Antiphospholipid syndrome, Amenorrhea, Proteinuria, OCD (obsessive compulsive disorder), Sinusitis, bacterial [facility] Office Visit On: 27-Nov-2016 16:01 Encounter Reason: Follow up for chronic medical issues - The patient feels well with minor complaints and has decreased energy level. Patient has been compliant with instructions. Current medication use: no side effects, End: 27-Nov-2016 17:05 compliant with dosing regimen and considered effective by patient. Patient sleeps 7 hours per night. Impact of disease: emotional impact-mild. Nutrition: balanced diet and supplemental vitamins. The me dical issues the patient is following up for include blood sugar issues, cardiac issues, high cholesterol and other (anxiety, HELP syndrome, alopecia, fatty liver, KWAN positive, vitamin d def., obesity ).Encounter Diagnosis: BMI 45.0- 49.9, adult, Current nonsmoker (Renamed from Current non-smoker), Abnormal fasting glucose, Fatty liver, Acid reflux, Obesity, unspecified, Hyperlipidemia, unspecified hyperlipidemia type, Stress reaction, Family history of breast cancer, Restless sleeper, H/O leukocytosis, Fatigue, Anxiety, KWAN positive, Alopecia, Abnormal thyroid blood test, Antiphospholipid syndrome, HELLP syndrome, antepartum, Amenorrhea, OCD (obsessive compulsive disorder), Proteinuria, Family history of heart disease, Vitamin D deficiency, unspecified [facility] Office Visit On: 16-Nov-2016 8:03 Encounter Reason: Cold Symptoms - Symptoms include nasal congestion, runny nose, postnasal drainage, sore throat and productive cough. Onset was 1 week(s) ago. The symptoms occur constantly. The patient describes this as End: 16-Nov-2016 8:22 worsening. Associated symptoms include diarrhea (started yesterday), while associated symptoms do not include nausea or vomiting. Current treatment includes non- prescription cold medication. Note for Cold symptoms: been over week and now in chest and coughing up green Encounter Diagnosis: BMI 45.0-49.9, adult, Current nonsmoker (Renamed from Current non- smoker), Sinusitis, bacterial [facility] Office Visit On: 15-Oct-2016 9:12 [facility] End: 19-Oct-2016 9:08 Office Visit On: 27-Aug-2016 16:31 Encounter Reason: Follow up acute care visit - The patient feels the same.Encounter Diagnosis: BMI 45.0-49.9, adult, Current nonsmoker (Renamed from Current non- smoker), Hyperlipidemia, unspecified hyperlipidemia type, KWAN positive, Proteinuria, End: 27-Aug-2016 17:01 OCD (obsessive compulsive disorder), Alopecia, Obesity, unspecified, Abdominal pain, acute, Fatty liver, HELLP syndrome, antepartum, Antiphospholipid syndrome, Abnormal thyroid blood test, Vitamin D deficiency, unspecified, Family history of heart disease, Tonsillitis, Amenorrhea, Intertriginous candidiasis, Anxiety, Fatigue, Acid reflux, Prediabetes, Restless sleeper, Family history of breast cancer, H/O leukocytosis, Stress reaction, Preop examination, BMI 40.0-44.9, adult [facility] Office Visit On: 28-Jun-2016 9:58 Encounter Reason: Follow up acute care visit - The patient feeling better since last seen and improving. Patient has been compliant with instructions. Current medication use: no side effects, compliant with dosing regime End: 28-Jun-2016 10:35 n and considered effective by patient. Patient sleeps 7 hours per night. Impact of disease: emotional impact-mild. Nutrition: balanced diet and supplemental vitamins. The medical issues the patient is f ollowing up for include other (weight, sore throat, fatgiue ).Encounter Diagnosis: BMI 45.0-49.9, adult, Current nonsmoker (Renamed from Current non-smoker), Amenorrhea, Tonsillitis, Intertriginous candidiasis, Fatigue, Anxiety [facility] Office Visit On: 18-Jun-2016 12:45 Encounter Reason: Follow up ER - Reason for hospitalization note: (sore throat ). Patient has been compliant with instructions. Current medication use: no side effects, compliant with dosing regimen and considered effect End: 18-Jun-2016 13:16 davion by patient. The patient feels well with minor complaints and has decreased energy level. Patient sleeps 6 hours per night. Impact of disease: emotional impact- mild. Nutrition: balanced diet and supplemental vitamins.Encounter Diagnosis: Acute pharyngitis, Current nonsmoker (Renamed from Current non-smoker) [facility] Refill Request On: 11-Jun-2016 11:31 Encounter Diagnosis: Candidiasis End: 11-Jun-2016 11:33 [facility] Office Visit On: 05-Jun-2016 9:47 Encounter Diagnosis: Acute pharyngitis End: 05-Jun-2016 15:32 [facility] Refill Request On: 05-Jun-2016 8:03 Encounter Diagnosis: Acute pharyngitis End: 05-Jun-2016 8:08 [facility] Office Visit On: 04-Jun-2016 11:32 Encounter Reason: Follow up acute care visit - The patient worsening. Patient has been compliant with instructions. Current medication use: compliant with dosing regimen and not considered effective by patient. Patient s End: 04-Jun-2016 12:10 leeps 7 hours per night. Impact of disease: emotional impact-mild. Nutrition: balanced diet and supplemental vitamins. The medical issues the patient is following up for include other (rash ).Encounter Diagnosis: Acute pharyngitis, Intertriginous candidiasis, Current nonsmoker (Renamed from Current non-smoker) [facility] Office Visit On: 29-May-2016 15:20 Encounter Diagnosis: Intertriginous candidiasis End: 29-May-2016 15:39 [facility] Lab Order On: 01-May-2016 11:35 Encounter Diagnosis: Preop examination End: 01-May-2016 11:42 [facility] Office Visit On: 17-Apr-2016 7:56 Encounter Diagnosis: BMI 40.0-44.9, adult, Encounter for general adult medical examination with abnormal findings, Proteinuria, KWAN positive, Anxiety, Antiphospholipid syndrome, OCD (obsessive compulsive disorder), Alopecia, End: 23-Apr-2016 8:08 HELLP syndrome, antepartum, Abnormal thyroid blood test, Amenorrhea, Vitamin D deficiency, unspecified, Obesity, unspecified, Stress reaction, Acid reflux, Fatty liver, Restless sleeper, Abdominal pain, acute, H/O leukocytosis, Fatigue, Current nonsmoker (Renamed from Current non-smoker), Family history of heart disease, Family history of breast cancer, Hyperlipidemia, unspecified hyperlipidemia type, Prediabetes [facility] Refill Request On: 05-Apr-2016 7:56 Encounter Diagnosis: Acid reflux End: 05-Apr-2016 7:57 [facility] Office Visit On: 03-Apr-2016 9:39 Encounter Reason: Follow up acute care visit - The patient feels the same. Patient has been compliant with instructions. Current medication use: no side effects and compliant with dosing regimen. Patient sleeps 7 hours p End: 03-Apr-2016 10:29 er night. Impact of disease: emotional impact-moderate. Nutrition: balanced diet and supplemental vitamins. The medical issues the patient is following up for include other (chronic diarrhea and adb. pain ).Encounter Diagnosis: Abdominal pain, acute , Current nonsmoker (Renamed from Current non-smoker), Diarrhea, unspecified type, Fatigue, Restless sleeper, Obesity, unspecified, Stress reaction, Fatty liver [facility] Office Visit On: 23-Feb-2016 9:32 Encounter Reason: Follow up acute care visit - The patient feels the same. Patient has been compliant with instructions. Current medication use: no side effects and compliant with dosing regimen. Patient sleeps 7 hours p End: 23-Feb-2016 10:22 er night. Impact of disease: emotional impact-moderate. Nutrition: balanced diet and supplemental vitamins. The medical issues the patient is following up for include other (chronic abd. pain, and diarrhea ).Encounter Diagnosis: Abdominal pain, acute , Current nonsmoker (Renamed from Current non-smoker), Fatigue, Fatty liver, KWAN positive, Acid reflux, Proteinuria, Vitamin D deficiency, unspecified, Anxiety, Antiphospholipid syndrome, OCD (obsessive compulsive disorder), Obesity, unspecified, Alopecia, HELLP syndrome, antepartum, Amenorrhea, Stress reaction, Abnormal thyroid blood test, Diarrhea, unspecified type, H/O leukocytosis [facility] Office Visit On: 07-Feb-2016 9:42 Encounter Reason: Follow up, Diagnostic Procedure Results - Diagnostic tests include MRI and other (EGD ). Current symptoms include abdominal pain (chronic).Encounter Diagnosis: Fatty liver, Current nonsmoker (Renamed from Current non-smoker), End: 08-Feb-2016 7:40 Amenorrhea, Vitamin D deficiency, unspecified, Anxiety, Headache, Obesity, unspecified, OCD (obsessive compulsive disorder), Fatigue, Alopecia, Antiphospholipid syndrome, KWAN positive, Acid reflux, Abdominal pain, acute, Proteinuria, Stress reaction , HELLP syndrome, antepartum [facility] Refill Request On: 27-Jan-2016 16:05 Encounter Diagnosis: Acid reflux End: 27-Jan-2016 16:10 [facility] Office Visit On: 10-Jan-2016 16:52 Encounter Diagnosis: Fatty liver, Abdominal pain, acute, Antiphospholipid syndrome, KWAN positive End: 12-Jan-2016 15:21 [facility] Office Visit On: 18-Nov-2015 8:24 Encounter Reason: Follow up ER - Reason for hospitalization abdominal pain. Patient has been compliant with instructions. Current medication use: no side effects and compliant with dosing regimen. The patient feels well End: 21-Nov-2015 8:25 with minor complaints and has decreased energy level. Patient sleeps 7 hours per night. Impact of disease: emotional impact-mild. Nutrition: balanced diet and supplemental vitamins.Encounter Diagnosis: Abdominal pain, acute, Current nonsmoker (Renamed from Current non-smoker) [facility] Office Visit On: 14-Oct-2015 13:22 Encounter Reason: Follow up acute care visit - Patient has been compliant with instructions.Encounter Diagnosis: Abdominal pain, acute, Fatigue, KWAN positive End: 14-Oct-2015 13:43 [facility] Office Visit On: 12-Sep-2015 13:58 Encounter Reason: Follow up acute care visit - The patient feeling better since last seen and improving. Patient has been compliant with instructions. Current medication use: no side effects, compliant with dosing regime End: 12-Sep-2015 15:02 n and considered effective by patient. Patient sleeps 7 hours per night. Impact of disease: emotional impact-moderate. Nutrition: balanced diet and supplemental vitamins. The medical issues the patient is following up for include other (?connective tissue disease ).Encounter Diagnosis: KWAN positive, Current nonsmoker (Renamed from Current non-smoker), Abnormal CAT scan, Abdominal pain, acute, Fatigue [facility] Annotation/Addendum On: 02-Sep-2015 13:00 Encounter Diagnosis: Abnormal blood chemistry End: 02-Sep-2015 13:33 [facility] Office Visit On: 02-Sep-2015 7:59 Encounter Reason: Follow up acute care visit - The patient does not feel well. Patient has been compliant with instructions. Current medication use: no side effects. Patient sleeps 6 (broken sleep) hours per night. The m End: 02-Sep-2015 9:55 edical issues the patient is following up for include other. Note for Follow up acute care visit: vomiting unable to eat, tired not off the couch for a week. Fever started Saturday and cough Sat, taking a lot of tylenol for all aches and painsRemains with nausea and low grade fever, elevated CRP pos RECEPTIONIST, elevated WBC on the rise, protein in urine, abdominal pain rt upper quad, overwhelming fatigue. Held colonoscopy because of nausea. , [ADDITIONAL REASON] Follow up tests - Diagnostic tests include other (labs). Date: (08/31/15). Current symptoms include other (nausea, vomiting, fever, fatigue). Encounter Diagnosis: Proteinuria, Abdominal pain, Headache, HELLP syndrome, antepartum, Abnormal blood chemistry [facility] Office Visit On: 31-Aug-2015 9:31 Encounter Reason: Follow up acute care visit - The patient does not feel well. Patient has been compliant with instructions. Current medication use: no side effects. Patient sleeps 6 (broken sleep) hours per night. Note End: 31-Aug-2015 12:51 for Follow up acute care visit: vomiting unable to eat, tired not off the couch for a week. Fever started Saturday and cough Sat, taking a lot of tylenol for all aches and painsRemains with nausea and l ow grade fever, elevated CRP pos RECEPTIONIST, elevated WBC on the rise, protein in urine, abdominal pain rt upper quad, overwhelming fatigue. Held colonoscopy because of nausea. Encounter Diagnosis: Nausea and/or vomiting, Abdominal pain, Thrush, Dehydration , Fatigue, Elevated WBC count, KWAN positive, Proteinuria [facility] Annotation/Addendum On: 30-Aug-2015 16:40 Encounter Diagnosis: Unspecified Diagnosis End: 30-Aug-2015 16:41 [facility] Office Visit On: 29-Aug-2015 9:51 Encounter Reason: Follow up acute care visit - The patient does not feel well. Patient has been compliant with instructions. Current medication use: no side effects. Patient sleeps 6 (broken sleep) hours per night. Note End: 29-Aug-2015 10:30 for Follow up acute care visit: vomiting unable to eat, tired not off the couch for a week. Fever started Saturday and cough Sat, taking a lot of tylenol for all aches and painsEncounter Diagnosis: Flu-like symptoms, KWAN positive, Elevated WBC count , Headache, Nausea and/or vomiting, Bronchitis [facility] Office Visit On: 25-Aug-2015 9:19 Encounter Reason: fever, [ADDITIONAL REASON] Headache - No changes in management were made at the last visit. Symptoms include typical headache features, while symptoms do not include nausea or vomiting. The patient describes End: 25-Aug-2015 14:58 the pain as aching. Onset was gradual. There is no known event that preceded symptom onset. , [ADDITIONAL REASON] Fatigue - No changes in management were made at the last visit. Symptoms include fatigue. Onset was sudden 3 day(s) ago. The symptoms occur constantly. The patient describes this as severe and worsening. Encounter Diagnosis: Fatigue, Fever and chills, Body aches [facility] Office Visit On: 01-Aug-2015 13:45 Encounter Reason: Follow up, Diagnostic Procedure Results - Diagnostic tests include ultrasound (pelvic ). Date: (07-29-15). Current symptoms include abdominal pain.Encounter Diagnosis: Abdominal pain, acute, Antiphospholipid syndrome, End: 01-Aug-2015 14:20 OCD (obsessive compulsive disorder) [facility] Phone Encounter On: 26-Jul-2015 11:43 Encounter Diagnosis: Abnormal CAT scan End: 26-Jul-2015 11:49 [facility] Nurse Visit (Non-[place]) On: 19-Jul-2015 12:47 Encounter Diagnosis: Abdominal pain, acute End: 19-Jul-2015 12:58 [facility] Office Visit On: 31-May-2015 8:26 Encounter Reason: Abdominal Mass - The abdominal mass was discovered by the patient. The mass was found 2 month(s) ago. The mass is located in the left upper quadrant of the abdomen. Symptoms include abdominal pain (tend End: 31-May-2015 8:47 erness at site of lump) and nausea. The pain is located in the right upper quadrant. The pain radiates to the left flank. The patient describes the pain as dull. Onset was 2 month(s) ago. The patient describes this as unchanged.Encounter Diagnosis: Abdominal wall mass of left upper quadrant, Antiphospholipid syndrome [facility] Office Visit On: 01-Feb-2015 10:06 Encounter Reason: Follow up tests - Date: (02.01.15)., [ADDITIONAL REASON] Follow up ER - Reason for hospitalization abdominal pain. Encounter Diagnosis: RUQ pain, Epigastric pain (789.06) End: 01-Feb-2015 10:49 [facility] Office Visit On: 11-Oct-2014 15:17 Encounter Reason: Follow up for chronic medical issues - The patient feels well with minor complaints, has good energy level and is sleeping well. Patient has been compliant with instructions. Current medication use: no End: 11-Oct-2014 15:42 side effects, compliant with dosing regimen and considered effective by patient. Patient sleeps 7 hours per night. Impact of disease: emotional impact-mild. Nutrition: balanced diet and supplemental vit amins. The medical issues the patient is following up for include depression and other (alopecia, obesity, OCD, hypokalemia, vitamin d def. ).Encounter Diagnosis: Hypokalemia, KWAN positive, Stress Reaction (308.4), Anxiety (300.00), Obesity,unspecified (278.00), Disorders, obsessive-compulsive (300.3), DEFICIENCY, VITAMIN D NOS (268.9), ALOPECIA NOS (704.00), Wrist pain, right, Amenorrhea(626.0), Antiphospholipid syndrome [facility] Office Visit On: 07-Jul-2014 11:45 Encounter Reason: Flu Like Symptoms - Symptoms include fever, runny nose, sore throat and dry cough, while symptoms do not include body aches or headache. Onset was sudden 4 day(s) ago. Onset followed exposure at home to End: 07-Jul-2014 12:43 someone with upper respiratory symptoms. The symptoms occur constantly. The patient describes this as moderate in severity and worsening.Encounter Diagnosis: Fever, Candidiasis, Cough with congestion of paranasal sinus [facility] Office Visit On: 07-Jun-2014 10:26 Encounter Reason: Follow up for chronic medical issues - The patient feels well with minor complaints, has good energy level and is sleeping well. Patient has been compliant with instructions. Current medication use: no End: 07-Jun-2014 10:54 side effects, compliant with dosing regimen and considered effective by patient. Patient sleeps 7 hours per night. Impact of disease: emotional impact-moderate. Nutrition: balanced diet and supplemental vitamins. The medical issues the patient is following up for include depression (anxiety, OCD) and other (alopecia, vitamin d def., obesity ).Encounter Diagnosis: Wrist pain, right, Anxiety (300.00), Stress Reaction (308.4), Disorders, obsessive-compulsive (300.3), Obesity,unspecified (278.00), Amenorrhea(626.0), ALOPECIA NOS (704.00), DEFICIENCY, VITAMIN D NOS (268.9), KWAN positive, Hypokalemia [facility] Office Visit On: 31-Mar-2014 15:48 Encounter Reason: Rash - Symptoms include rash, while symptoms do not include fever. The patient describes the rash as red, nontender, bumpy and itchy. The rash is located on the left arm, on the left leg, on the right a End: 01-Apr-2014 23:18 rm and on the right leg. Onset was sudden 2 day(s) ago. The rash is spreading. Note for Rash: Pt started Amox on Saturday from Urgent care for strep throat.- doesnt feel tired like mono - no tongue swe lling not sob but few days after pcn rash started and spread Encounter Diagnosis: Allergic reaction to penicillin, Streptococcal infection group A, Thrush [facility] Office Visit On: 01-Mar-2014 15:36 Encounter Reason: Follow up acute care visit - The patient feeling better since last seen and improving. Patient has been compliant with instructions. Current medication use: no side effects, compliant with dosing regime End: 01-Mar-2014 16:32 n and considered effective by patient. Patient sleeps 7 hours per night. Impact of disease: emotional impact-moderate. Nutrition: balanced diet and supplemental vitamins. The medical issues the patient is following up for include other (weight ). Encounter Diagnosis: Anxiety (300.00), Obesity,unspecified (278.00) [facility] Office Visit On: 19-Jan-2014 9:45 Encounter Reason: Follow up for chronic medical issues - The patient feels well with no complaints and has good energy level. Patient has been compliant with instructions. Current medication use: no side effects, non-com End: 19-Jan-2014 10:45 pliant with dosing regimen and considered effective by patient. Patient sleeps 6 hours per night. Impact of disease: emotional impact-mild. Nutrition: balanced diet and supplemental vitamins. The medica l issues the patient is following up for include high blood pressure and other (obesity, OCD, anxiety, hx. abnormal EKG, vitamin d def. ). blood pressure range :.Encounter Diagnosis: ALOPECIA NOS (704.00), Amenorrhea(626.0), Obesity,unspecified (278.00), Disorders, obsessive-compulsive (300.3), Stress Reaction (308.4), DEFICIENCY, VITAMIN D NOS (268.9), Elevated Blood Pressure without diagnosis of Hypertension (796.2), SCREENING FOR LIPID DISORDERS (V77.91), Anxiety (300.00) [facility] Office Visit On: 18-Sep-2013 14:06 Encounter Reason: Follow up acute care visit - The patient feeling better since last seen and improving. Patient has been compliant with instructions. Current medication use: no side effects, compliant with dosing regime End: 18-Sep-2013 14:40 n and considered effective by patient. Patient sleeps 7 hours per night. Impact of disease: emotional impact-mild. Nutrition: balanced diet and supplemental vitamins. The medical issues the patient is following up for include depression (anxiety ). Encounter Diagnosis: Anxiety (300.00), DEFICIENCY, VITAMIN D NOS (268.9), Elevated Blood Pressure without diagnosis of Hypertension (796.2) [facility] Office Visit On: 24-Aug-2013 17:40 Encounter Diagnosis: Anxiety (300.00) End: 24-Aug-2013 17:44 [facility] Office Visit On: 06-Jul-2013 9:44 Encounter Reason: Follow up acute care visit - The patient does not feel well and worsening. Patient has been compliant with instructions. Current medication use: compliant with dosing regimen and not considered effectiv End: 06-Jul-2013 10:29 e by patient. Patient sleeps 7 hours per night. Impact of disease: emotional impact- moderate. Nutrition: balanced diet and supplemental vitamins. The medical issues the patient is following up for include depression (anxiety ).Encounter Diagnosis: Anxiety (300.00) [facility] Phone Encounter On: 25-Jun-2013 15:17 Encounter Diagnosis: Unspecified Diagnosis End: 25-Jun-2013 15:30 [facility] Office Visit On: 02-Jun-2013 15:02 Encounter Reason: Follow up Meds - The patient does not feel well.Encounter Diagnosis: Anxiety (300.00), Elevated Blood Pressure without diagnosis of Hypertension (796.2) End: 02-Jun-2013 15:44 [facility] Office Visit On: 27-Jan-2013 14:49 Encounter Reason: Follow up tests - Date: ()., [ADDITIONAL REASON] Follow up for chronic medical issues - The patient feels well with no complaints End: 27-Jan-2013 15:50 and has good energy level. Patient has been compliant with instructions. Current medication use: no side effects, non-compliant with dosing regimen and considered effective by patient. Patient sleeps 6 hours per night. Impact of disease: emotional impact-mild. Nutrition: balanced diet and supplemental vitamins. The medical issues the patient is following up for include high blood pressure and other ( obesity, OCD, anxiety, hx. abnormal EKG, vitamin d def. ). blood pressure range : (120-140s/70-80s). Encounter Diagnosis: Elevated Blood Pressure without diagnosis of Hypertension (796.2), ALOPECIA NOS (704.00), Amenorrhea(626.0), Abnormal EKG(794.31), Epigastric pain (789.06), Obesity,unspecified (278.00), DEFICIENCY, VITAMIN D NOS (268.9), Disorders, obsessive-compulsive (300.3), Stress Reaction (308.4), Burn of unspecified degree of forearm (943.01), SCREENING FOR LIPID DISORDERS (V77.91) [facility] Office Visit On: 13-May-2012 13:22 Encounter Reason: Follow up for chronic medical issues - The patient feels well with no complaints and has good energy level. Patient has been compliant with instructions. Current medication use: no side effects, complia End: 13-May-2012 13:50 nt with dosing regimen and considered effective by patient. Patient sleeps 6 hours per night. Impact of disease: emotional impact-mild. Nutrition: balanced diet and supplemental vitamins. The medical is sues the patient is following up for include high blood pressure and other (obesity, OCD, anxiety, hx. abnormal EKG, vitamin d def. ).Encounter Diagnosis: Obesity,unspecified (278.00), Disorders, obsessive-compulsive (300.3), Stress Reaction (308.4) , Elevated Blood Pressure without diagnosis of Hypertension (796.2), DEFICIENCY, VITAMIN D NOS (268.9) [facility] Office Visit On: 14-Jan-2012 9:10 Encounter Reason: Follow up acute care visit - The patient feeling better since last seen and improving. Patient has been compliant with instructions. Current medication use: no side effects and compliant with dosing reg End: 14-Jan-2012 9:34 imen. Patient sleeps 7 hours per night. Impact of disease: emotional impact-mild. Nutrition: balanced diet and supplemental vitamins. The medical issues the patient is following up for include depression (anxiety ) and high blood pressure. Encounter Diagnosis: Stress Reaction (308.4), Elevated Blood Pressure without diagnosis of Hypertension (796.2) [facility] Office Visit On: 17-Dec-2011 9:58 Encounter Reason: Here for 2 month f/u to go over blood pressure - reports that they have been stable- running around 120-142/70-80'sEncounter Diagnosis: Elevated Blood Pressure without diagnosis of Hypertension (796.2), Stress Reaction (308.4), End: 18-Dec-2011 7:44 Obesity,unspecified (278.00), Disorders, obsessive-compulsive (300.3) [facility] Office Visit On: 15-Oct-2011 14:26 Encounter Reason: Follow up acute care visit - The patient feeling better since last seen and improving. Patient has been compliant with instructions. Current medication use: no side effects and compliant with dosing reg End: 15-Oct-2011 14:56 imen. Patient sleeps 7 hours per night. Impact of disease: emotional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
--- OUTSIDE RECORDS SUMMARY | 2018-08-05 17:25 | XMS RPT_ITS | Continuity of Care Document ---
:1980 Author Organization [facility] Address [facility] [address] Phone Care Team Providers Name Role Phone [...] grade fever. Dr. 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 rightn ow no [...] saw Dr. Josh Lemus in vasuclar at [facility] and Dr. Jessica jama at [facility] severe preeclampsia Status: Active Hives (L50.9, 708.9) [...] walk not feel need at much to [facility]. 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 Status: Inactive as of 01-Mar-2014 Elevated WBC [...] 686.9) Comments: went into cell[facility] after at [facility] in [place]. will do soap cleanses only [...] resolve on atb and will follow up [facility] ent Status: Resolved as of 10-May-2017 Unspecified [...] Only (Routine) Result: Comments: See Note; NOTES: [facility] Imaging Services [address] [place] [address] Lower Ext Joint Only (Routine) MR#: [id number] Acct: [id number] Name: SANDRA RATLIFF Rep #: [id number] : 1980 F 37 From: Laurent Amos MD PCP: Michelle Reaves MD Status: REG CLI Study: Lower Ext Joint Only (Routine) Date of Exam: 04/03/18 Exam# [id number] Ordering Dr: Michelle Reaves MD STUDY: MRI [...] Service support , CC: Michelle Reaves MD Front Desk Officer: Signed 31-Mar-2018 PT D/C Summary (1) Result: Comments: See Note; NOTES: [facility] Physical Therapy [facility] [address] [place] [address]. [address] [place] [address] Fax REHABILITATION SERVICES DISCHAR GE SUMMARY MR#: [id number] Acct: [id number] Name: SANDRA RATLIFF Rep #: [id number] : 1980 37 From: Keri Mack PT, Cert. MDT Referring Dr.: Michelle Reaves MD Status: REG RCR Insurance: [facility] S[facility]F [facility] INSURANCE HP - PT D/C [...] please feel free to call me at [phone]. Thank you for the referral of this patient. Sincerely, Keri Mack <Electronically signed by Keri Mack PT, Cert. MDT> 03/31/18 1407 CC: Michelle Reaves MD ZELDA Signed 04-Mar-2018 Inital Evaluation (1) - PT Result: Comments: See Note; NOTES: [facility] Physical Therapy [facility] [address] [facility] [facility] [address]. [address] [place], [place] [address] Fax REHABILITATION SERVICES INITIAL EVALUATION MR#: [id number] Acct: [id number] Name: SANDRA RATLIFF Rep #: [id number] : 1980 37 From: Keri Mack PT, Cert. 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 Disability: NO. Present symptoms: INSIDE OF LEFT [...] to be FAXED BACK to us at [phone] for Medicare purposes. Please let me know if there are questions or concerns regarding this plan of c are. Physician Signature: Date: <Electronically signed by Keri Mack PT, Cert. MDT> 03/04/18 1248 CC: Michelle Butterfield ZELDA Signed For Medicare only, by signing this I certify the plan of care. Physicians Signature Date 08-Feb-2018 Knee 4 or More Views Result: Comments: See Note; NOTES: [facility] Imaging Services [address] [place] [address] Knee 4 or More Views MR#: [id number] Acct: [id number] Name: SANDRA RATLIFF Rep #: [id number] : 1980 F 37 From: Caity Felix MD PCP: Michelle Reaves MD Status: REG CLI Study: Knee 4 or More Views Date of Exam: 02/08/18 Exam# [id number] Ordering Dr: Michelle Reaves MD STUDY: X-RAY - LEFT KNEE REASON FOR EXAM: Female, 37 years old. [place] pop swelling pain TECHNIQUE: 4 view(s) of [...] Tel , Service support , Fa x [phone] CC: Michelle Reaves MD Front Desk Officer: Signed 22-Nov-2015 Emergency Department Summary Result: Comments: See Note; NOTES: [facility] Medical Records Department [address] [place] [address] Emergency Department Summary MR#: [id number] Acct: [id number] Name: SANDRA RATLIFF Rep #: [id number] : 1980 35 From: Bulmaro Rodriguez MD PCP: Michelle Reaves MD Status: [facility] ER DATE OF SERVICE: 11/17/2015 METHOD OF [...] with Dr. Reaves, return with any problems. Golden diet, fluids. CLINICAL IMPRESSION: Abdominal pain with nausea and diarrhea. DISPOSITION: Home. MD Chase Odom C: Michelle Reaves MD T: [facility] JOB: [id number] 11/22/15 2339 <Electronically signed by Bulmaro Rodriguez MD> Date Bulmaro Rodriguez MD Cosigner Signature (If Indicated): Date CC: Michelle Reaves MD Date Dictated: 11/17/15 1240 Date Transcribed: 11/17/15 1240 Front Desk Officer: Signed 22-Nov-2015 Small Bowel Series Only Result: Comments: See Note; NOTES: [facility] Imaging Services [address] [place] [address] Ava 4d Small Bowel Series Only MR#: [id number] Acct: [id number] Name: HER SANDRA MCKEON Rep #: [id number] : 1980 F 35 From: Leigha Colon MD PCP: Michelle Reaves MD Status: REG CLI Study: Small Bowel Series Only Date of Exam: 11/22/15 Exam# [id number] Ordering Dr: Michelle Medina MD STUDY: AIR-CONTRAST [...] spot views were obtained COMPARISON: None. FINDINGS: Training Instructor view: The bowel gas pattern is unremarkable [...] at 16:48 EDT Tel , Service support [phone], RAD/Small Bowel Series Only IMPRESSION: Unremarkable study. Electronically Signed: Leigha Colon MD at 16:48 E DT Tel , Service support [phone], CC: Michelle Reaves MD Front Desk Officer: Signed 17-Nov-2015 Discharge Instruction Result: Comments: See Note; NOTES: [facility] Medical Records Department [address] [facility] [place] [address] Discharge Instruction 11/17/15 1236 MR#: [id number] Acct: [id number] Name: SANDRA RATLIFF Rep #: [id number] : 1980 35 From: Bulmaro Rodriguez MD PCP: Michelle Reaves MD Status: REG ER ED Disposition - Plan for ED Patient: Disposition: Home or Assisted Living Chief Complaint: Abd Pain Instructions: ED Abdominal Pain, Unknown Cause, (Female), ED Vomiting And Diarrhea, Nonspecific (Adult) Prescriptions: Hydrocodone Bitart/Apap 5-325 [[place] 5/325] 1 - 2 t ablet PO [...] problems, contact your doctor. Call [facility] ([phone]) or report to the closest [facility] Room. Call 911 if necessary. 11/17/15 1238 <Electronically signed by Bulmaro Rodriguez MD> Date Bulmaro Michael MD Cosigner Si gnature (If Indicated): Date CC: Michelle Reaves MD 17-Nov-2015 Abdomen/Pelvis WITH Contrast Result: Comments: See Note; NOTES: [facility] Imaging Services [address] [place] [address] Verdana 4d Abdomen/Pelvis WITH Contrast MR#: [id number] Acct: [id number] Name : SANDRA RATLIFF Rep #: [id number] : 1980 F 35 From: Isaac Espinoza MD PCP: Michelle Reaves MD Status: REG ER Study: Abdomen/Pelvis WITH Contrast Date of Exam: 11/17/15 Exam# [id number] [facility] Dr: Bulmaro Rodriguez MD STUDY: CT ABDOMEN AND PELVIS WITH CONTRAST REASON FOR EXAM: Female, 35 years old. Mid lower abdominal pain. Diarrhea and nausea. RADIATION DOSAGE (If Supplied By [facility]): CTDIvol = ( 18.40 ) mGy, DLP = ( 1366.61 ) mGycm TECHNIQUE: Transaxial images were obtained from the dome of the diaphragm to the symphysis pubis with oral contrast. 100ML ml of Isovue 300 c ontrast was administered. Sagittal and coronal images were reconstructed. Individualized dose optimization techniques were used for this CT. COMPARISON: Comparison is made with prior study dated [facility] 2015. FINDINGS: The visualized lung [...] Isaac Espinoza MD at 12:27 EDT Tel [phone], Service support [phone], CC: Michelle Reaves MD; Bulmaro Rodriguez MD Front Desk Officer: Signed 13-Nov-2015 Operative Report Result: Comments: See Note; NOTES: [facility] Medical Records Department [address] [facility] [place] [address] Operative Report MR#: [id number] Acct: [id number] Name: NITIN RATLIFF Rep #: [id number] : 1980 35 From: Vi Sanchez MD [...] complications. Vi Sanchez MD T: NTS JOB: [id number] 11/13/15 0940 <Electronically sig shawn by Vi Sanchez MD> Date Vi Sanchez MD Cosigner Signature (If Indicated): Date C C: Michelle Reaves MD; Vi Sanchez MD Date Dictated: 11/07/15910 Date Transcribed: 11/07/15910 Front Desk Officer: Signed 31-Aug-2015 Abdomen Single View Result: Comments: See Note; NOTES: [facility] Imaging Services [address] [place] [address] Verdana 4d Abdomen Single View MR#: [id number] Acct: [id number] Name: SANDRA RATLIFF Rep #: [id number] : 1980 F 35 From: Isaac Espinoza MD PCP: Michelle Reaves MD Status: REG CLI Study: Abdomen Single View Date of Exam: 08/31/15 Exam# [id number] Ordering Dr: Kirsten Arias STUDY: X-RAY - [...] Isaac Espinoza MD at 13:18 EST Tel [phone], Service support [phone], RAD/Abdomen Single View IMPRESSION: Normal x-ra y examination of the abdomen and pelvis. Electronically Signed: Isaac Espinoza MD at 13:18 EST Tel [phone], Service support [phone], CC: Kirsten Arias ; Michelle Reaves MD Front Desk Officer: Signed 29-Jul-2015 Transvaginal Non- Result: Comments: See Note; NOTES: [facility] Imaging Services [address] [place], [place] [address] [address] Verdana 4d Transvaginal Non- MR#: [id number] Acct: [id number] Name: SANDRA ZAVALA Rep #: [id number] : 1980 F 35 From: Isaac Espinoza MD PCP: Michelle Reaves MD Status: REG CLI Study: Transvaginal Non- Date of Exam: 07/29/15 [id number] [facility] Michelle Reaves MD STUDY: ULTRASOUND [...] Isaac Espinoza MD at 14:01 EST Tel [phone], Service support [phone], CC: Michelle Reaves MD Front Desk Officer: Signed 29-Jul-2015 Pelvic (Non ) Result: Comments: See Note; NOTES: [facility] Imaging Services [address] [place] [address] Verdana 4d Pelvic (Non ) MR#: [id number] Acct: [id number] Name: SANDRA BELLE Rep #: [id number] : 1980 F 35 From: Isaac Espinoza MD PCP: Michelle Reaves MD Status: REG CLI Study: Pelvic (Non ) Date of Exam: 07/29/15 Exam# [id number] Ordering Dr: Michelle Ponce MD STUDY: ULTRASOUND [...] Isaac Espinoza MD at 14:01 EST Tel [phone], Service support [phone], CC: Michelle Reaves MD Front Desk Officer: Signed 25-Jul-2015 Abdomen/Pelvis WITH Contrast Result: Comments: See Note; NOTES: [facility] Imaging Services [address] [place] [address] Verdana 4d Abdomen/Pelvis WITH Contrast MR#: [id number] Acct: [id number] Name : SANDRA RATLIFF Rep #: [id number] : 1980 F 35 From: Isaac Espinoza MD PCP: Michelle Reaves MD Status: REG CLI Study: Abdomen/Pelvis WITH Contrast Date of Exam: 07/25/15 Exam# [id number] Ordering Dr: Michelle Reaves MD STUDY: CT [...] Isaac Espinoza MD at 9:19 EST Tel [phone], Service support [phone], CC: Michelle Reaves MD Front Desk Officer: Signed 07-Jul-2015 Abdomen Limited Result: Comments: See Note; NOTES: [facility] Imaging Services [address] [place] [address] Verdana 4d Abdomen Limited MR#: [id number] Acct: [id number] Name: JEANNIE RATLIFF Rep #: [id number] : 1980 F 35 From: Leigha Colon MD PCP: Michelle Reaves MD Status: REG CLI Study: Abdomen Limited Date of Exam: 07/07/15 Exam# [id number] Ordering Dr: Michelle Reaves MD STUDY: ABDOMINAL [...] at 16:22 EST Tel , Service support [phone], CC: Michelle Reaves MD Front Desk Officer: Signed 22-Apr-2015 OT Discharge Summary Result: Comments: See Note; NOTES: [facility] Occupational Therapy Health[address] [place], [place] [address] Fax REHABILITATIO N SERVICES DISCHARGE SUMMARY MR#: [id number] Acct: [id number] Name: SANDRA RATLIFF Rep #: [id number] : 1980 34 From: Bernarda De La [...] However, she did make some improvements. 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 She was reporting independence with act ivities of daily living at this time. The patient was last seen on January 11, 2015, no further appointments were indicated. At this time, the patient is discharged. Bernarda De La Vega, OTR/L T: NTS JOB: [id number] <Electronically signed by Bernarda De La Vega > 04/22/15 1057 CC: Signed 10-Feb-2015 Operative Report Result: Comments: See Note; NOTES: [facility] Medical Records Department [address] [place] [address] Operative Report 02/02/15 1305 MR#: [id number] Acct: [id number] Name: SANDRA DAUGHERTY Rep #: [id number] : 1980 34 From: Vi Sanchez MD PCP: Michelle Reaves MD Status: [facility] Y [place] [facility] Report of Operation Date of Procedure: 02/02/15 Pre-Operative Diagno sis: cholelithiasis, cholecystitis Post-Operative Diagnosis: same Surgery/Procedure Performed:: laparoscopic cholecystectomy with cholangiogram 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 Rate : 074 BPM Atrial Rate : 074 BPM P-R Int : 134 ms QRS Dur : 110 ms QT Int : 378 ms P-R-T Axes : 051 071 046 degrees QTc Int : 419 ms Normal sinus rhythm Normal ECG No previous ECGs available Confirmed by STEPHANE BOYLE MD ([id number]), electronic news gathering editor JASMIN RAMOS ([id number]) on 02/04/2015 10:20:06 AM Referred By: LALO Confirmed By:STEPHANE BOYLE MD 1020 Date Stephane Boyle MD CC: Michelle Reaves MD Date Dictated: 02/02/15 1129 Date Transcribed: 02/02/151128 Front Desk Officer: Signed 04-Feb-2015 Emergency Department Summary Result: Comments: See Note; NOTES: [facility] Medical Records Department [address] [place] [address] Emergency Department Summary MR#: [id number] Acct: [id number] Name: SANDRA BELLE Rep #: [id number] : 1980 34 From: Naldo Schaeffer MD [...] prec autions, instructed her to call Dr. Reaves's office this morning for a followup appointment today for reevaluation and reexamination and to return to the Emergency Department with any new or worsenin g symptoms and they are agreeable. DISPOSITION: At this time is discharge. CONDITION: Stable. IMPRESSION: 1. Abdominal pain, improved. 2. Nausea and vomiting. MD Chase Perdomo C: Michelle Reaves MD T: NTS JOB: [id number] 02/04/15 0552 <Electronically signed by Naldo Schaeffer MD> Date Naldo quintanilla MD CC: Michelle Reaves MD Date Dictated: 02/01/15536 Date Transcribed: 02/01/15536 Front Desk Officer: Signed 02-Feb-2015 Discharge Instruction Result: Comments: See Note; NOTES: [facility] Medical Records Department [address] [place] [address] Instructions for Home/Discharge Instructions 02/02/15 1305 MR#: [id number] ct: [id number] Name: SANDRA RATLIFF Rep #: [id number] : 1980 34 From: Vi Sanchez MD PCP: Michelle Reaves MD Status: REG [facility] Discharge Diet: No Restrictions - drink plenty [...] for date and time, thank you 02/02/15 1621 <Electronically deangelo d by Vi Sanchez MD> Date Vi Sanchez MD CC: Michelle Reaves MD 02-Feb-2015 History and Physical Exam Result: Comments: See Note; NOTES: [facility] Medical Records Department [address] [place] [address] History and Physical 02/02/15 1155 MR#: [id number] Acct: [id number] Name: SANDRA RATLIFF Rep #: [id number] : 1980 34 From: Vi Sanchez MD PCP: Michelle Reaves MD Status: REG [facility] Y Location: [place] [address] History and Physical - Blank Date of [...] Morbid obesity, class III Past Surgical History: [place] teeth extraction C section 2010 Past injuries: [...] 01-Feb-2015 Gallbladder Result: Comments: See Note; NOTES: [facility] Imaging Services [address] [place] [address] Ultrasound Report MR#: [id number] Acct: [id number] Name: SANDRA RATLIFF Rep #: [id number] : 1980 F 34 From: Deonte Woods DO PCP: Michelle Reaves MD Status: REG CLI Study: Gallbladder Date of Exam: 02/01/15 Exam# [id number] Ordering Dr: Michelle Reaves MD STUDY: ABDOMINAL [...] Deonte Woods DO at 17:18 EDT Tel [phone], Service suppor t [phone], N.B. : The above information has been verbally conveyed by Deonte Woods DO to Michelle Reaves MD, Referring Physician, on 02/01/2015 17:24:35 (ET). CC: Michelle Reaves MD Front Desk Officer: Signed 01-Feb-2015 Discharge Instruction Result: Comments: See Note; NOTES: [facility] Medical Records Department [address] [place] [address] Discharge Instruction 02/01/15 0534 MR#: [id number] Acct: [id number] Name: SANDRA RATLIFF Rep #: [id number] : 1980 34 From: Naldo Schaeffer MD [...] problems, contact your doctor. Call [facility] ([phone]) or report to the closest Emergency Room. Call 911 if necessary. 02/01/15 0535 <Electronically signed by Abdullahi Schaeffer MD> Date Naldo Schaeffer MD Cosigner Signature (If Indicated): Date CC: Michelle Reaves MD 18-Nov-2014 Initial Evaluation - OT Result: Comments: See Note; NOTES: [facility] Occupational Therapy [facility] [address] [place], [place] [address] Fax REHABILITATION SERV ICE INITIAL EVALUATION MR#: [id number] Acct: [id number] Name: SANDRA RATLIFF Rep #: [id number] : 1980 34 From: Bernarda De La Vega Referring Dr.: Ofe Jay DO Status: REG RCR Insu elly: [facility] Date: DATE OF SERVICE: PHYSICIAN: Ofe Jay [...] Right ulnar deviation 10, left 30. Right merchant patroller strength is 35 pounds, left is 70 [...] The patient will demonstrate increase in right merchant patroller strength to 65 pounds or greater to [...] De La Vega OTR/L T: EMILY JOB: [id number] <Electronically signed by Bernarda De La Vega & #62; 11/18/14 0927 CC: Signed For Medicare only, by signing this I certify the plan of care. Physicians Signature Date 04-Nov-2014 Wrist min 3 Views Result: Comments: See Note; NOTES: [facility] Imaging Services [address] [place] [address] Radiology Report MR#: [id number] Acct: [id number] Name: SANDRA RATLIFF Rep #: [id number] : 1980 F 34 From: Catrachito Wren MD PCP: Michelle Reaves MD Status: REG CLI Study: Wrist min 3 Views Date of Exam: 11/04/14 Exam# [id number] Ordering Dr: Ofe Jay DO STUDY: X-RA [...] MD at 14:57 EDT , Service support [phone], RAD/Wrist min 3 Views IMPRESSION: Normal x-ray examination of the wrist. Electronically Signed: Catrachito Wren MD at 14:57 EDT , Service support [phone], Fax CC: Ofe Jay DO; Michelle Reaves MD Front Desk Officer: Signed Immunization Name Dates Details Tdap (7 years and up) on: 30-Jun-2017 Comments: [facility] Family History Unknown Family Member Name Dates Details Brother 1 Comments: healthy Status: Active Father Comments: hx. [place] (age 50) CABGx3, heart disease Status: Active [...] use. 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 Aries [phone] Status: Active Exercise History: Exercises occasionally. Comments: [...] kg/m2 Body Surface Area Calculated 2.41 m2 37-Pke-451721:50 Temperature 97.4 f Comments: Method: Temporal Pulse [...] Details :43 Allergen, Rast Food Profile Comments: [facility] (refer to report for specific site)refer to [...] in this mix are: Blue mussel Fish [place] Shrimp Tuna EGG, WHOLE <0.10 kU/L (Normal) CHOCOLATE <0.10 kU/L (Normal) Comments: Performed at: [address] [id number] Director: Davide Jordan MD, Phone: [phone] BEEF <0.10 kU/L (Normal) PORK <0.10 kU/L (Normal) SOYBEAN <0.10 kU/L (Normal) PEANUT <0.10 kU/L (Normal) CORN <0.10 kU/L (Normal) WHEAT <0.10 kU/L (Normal) MILK (COW) <0.10 kU/L (Normal) :43 CBC-Complete Blood Cnt No Diff Comments: [facility] [address] [place], [place], [id number] ; fu 10-5 DB MPV 10.0 fL [...] 4.2-5.4 WBC 10.1 K/mm3 (Normal) Range: 4.4-11.0 54-Ley-86458:43 Comprehensive Metabolic Profil Comments: [facility] [address] [place], [place], [id number] GAP 10 (Normal) Range: 5-15 CO2 27.0 [...] Comments: Please note revised GLUCOSE reference range vnyspmtmp44/02/2018. 75-Qae-69671:43 T4 Free Direct Comments: [facility] [address] [place], [address] T4 FREE DIRECT 1.04 ng/dL (Normal) Range: 0.76-1.46 :43 Thyroid Stim Hormone (TSH) Comments: [facility] [address] [place], [address] TSH 2.11 {uIU/mL} (Normal) Range: 0.358-3.74 :43 Vitamin D,25 Hydroxy Comments: [facility] [address] [place], [id number] Vitamin D 25-OH 30.2 ng/mL (Normal) Range: 29.95-100.01 Comments: Vitamin D 25(OH) Status Range Deficiency <20 ng/mL (50nmol/L) Insuffciency 20 - 30 ng/mL (50 - 75 nmol/L) Sufficiency 30 - 100 ng/mL (75 - 250 nmol/L) Toxicity >100 ng/mL (>250 nmol/L) 6-Yin-265937:16 NuSwab Vaginitis Plus Comments: PATIENT NOT FASTINGPERFORMED BY: [address] [id number] Information: SRC:CE (trich/BV/GC/linda W/O Herpes) (40047) Neisseria gonorrhoeae, Negative (Normal) ROBERT Chlamydia trachomatis, Negative (Normal) ROBERT Trich vag by ROBERT Negative (Normal) Mercedes glabrata, ROBERT Negative (Normal) Comments: This test was developed and its performance characteristics determinedby [facility]. It has not been cleared or approved [...] was developed and its performance characteristicsdetermined by [employer]. It has not been cleared or approvedby the Food and Drug Administration. The FDA has determinedthat such clearance or approval is not necessary. BVAB 2 Low - 0 {Score} (Normal) Atopobium vaginae Low - 0 {Score} (Normal) 4-Lwv-312026:16 HPV automatic Comments: Source.............Cervix;EndocervixNo. of containers..01 ThinPrep VialPATIENT NOT FASTINGPERFORMED BY: WB [employer] [address] [id number] BY: =G [employer] [place] ([address]) wzevjm975 [facility] W [id number] Information: [id number] HPV, high-risk Negative Comments: This high-risk HPV [...] metaplasticcells (endocervical com ponent) are present.Z01.419Nathaly Reese Bread Racker (ASCP) 09-May-20178:25 URINE AUTUMN CULTURE-IDENTIFICATN Comments: PATIENT NOT FASTINGPERFORMED BY: [employer] Mtvwpe0325 [facility] [id number] (06762) Antimicrobial MIHEAD (Normal) Comments: S = Susceptible; [...] Urine Final report Culture,Comprehensive (Abnormal) :25 URINALYSIS (23214) Comments: PATIENT NOT FASTINGPERFORMED BY: [employer] Uzcocj4047 [facility] [id number] Information: SRC:UC Microscopic Examination MICNIP (Normal) Comments: Microscopic not indicated and not performed. Nitrite, Urine Negative (Normal) Urobilinogen,Semi-Qn 0.2 mg/dL (Normal) Range: 0.2-1.0 Bilirubin Negative (Normal) Occult Blood Negative (Normal) Ketones Negative (Normal) Glucose Negative (Normal) Protein Negative (Normal) WBC Esterase Negative (Normal) Appearance Clear (Normal) Urine-Color Yellow (Normal) pH 5.5 (Normal) Range: 5.0-7.5 Specific [place] 1.022 (Normal) Range: 1.005-1.030 :35 CBC, Platelets & Auto Diff Comments: PATIENT NOT FASTINGPERFORMED BY: PLx [facility]Up [facility] System6370 [facility] [id number] Information: NURSE DRAW (58774) Immature Grans (Abs) 0.0 {x10E3/uL} (Normal) Range: [...] Panel, Comprehensive Comments: PATIENT NOT FASTINGPERFORMED BY: LabCoAtlantic Rehabilitation InstituteBycvue0649 [facility] [id number] (23779) ALT (SGPT) 18 [iU]/L (Normal) Range: 0-32 [...] (Abnormal) Range: 65-99 :35 T3, FREE (TRIDOTHYRONINE) (26159) Comments: PATIENT NOT FASTINGPERFORMED BY: NewsCrafted CromoUpUNC [facility] [id number] Triiodothyronine,Free,Serum 3.7 pg/mL (Normal) Range: 2.0-4.4 :35 T4, FREE (THYROXINE) (63513) Comments: PATIENT NOT FASTINGPERFORMED BY: NewsCrafted CromoUpUNC Health [facility] [id number] T4,Free(Direct) 1.07 ng/dL (Normal) Range: 0.82-1.77 72-Zyk-824309:15 HgA1C , Office (19041) HgA1C , Office 5.5 % (Normal) Range: 4.6 - 7.1 29-Qrp-856518:33 METABOLIC PANEL, Comments: PATIENT WAS FASTINGPERFORMED BY: NewsCraftedCynthia [place] 973647 [facility] [id number] BY: NewsCrafted CromoUpUNC Health [facility] [id number] COMPREHENSIVE (69180) ALT (SGPT) 21 [iU]/L (Normal) Range: 0-32 [...] Glucose, Serum 88 mg/dL (Normal) Range: 65-99 32-Fzz-418262:33 LIPOPROTEIN, BLD, BY NMR Comments: PATIENT WAS FASTINGPERFORMED BY: BN [facility] [address] [id number] BY: CB [facility] Lasyeb0577 [facility] [id number]; fu 8-1 db (41906) LP-IR Score 72 (Abnormal) Comments: INSULIN RESISTANCE MARKER <--Insulin Sensitive Insulin Resistant--> Percentile in Reference PopulationInsulin Resistance ScoreLP-IR Score Low 25th 50th 75th High <27 27 45 63 >63LP-IR Score is inaccurate if patient is non-fasting. .The LP-IR score is a laboratory developed i [facility] that has beenassociated with insulin resistance and [...] 1600 - 2000 Very High > 2000 19-Ong-241133:33 CBC with auto diff Comments: PATIENT WAS FASTINGPERFORMED BY: [address] [id number] BY: LabCoAtlantic Rehabilitation InstituteScctih9470 [facility] [id number] (75331) Immature Grans (Abs) 0.0 {x10E3/uL} (Normal) Range: [...] 3.77-5.28 WBC 9.2 {x10E3/uL} (Normal) Range: 3.4-10.8 98-Nxm-037290:33 CALCIFIDIOL (15896) VIT D Comments: PATIENT WAS FASTINGPERFORMED BY: LabCo[address] [id number] BY: LabCoAtlantic Rehabilitation InstituteEuiidp5530 [facility] [id number] 25 Vitamin D, 25-Hydroxy 51.8 ng/mL (Normal) Range: 30.0-100.0 Comments: Vitamin D deficiency has been defined by the [place] ofMedicine and an Endocrine Society practice guideline as alevel of serum 25-OH vitamin D less than 20 ng/mL (1,2).The Endocrine Society went on to further define vitamin Dinsufficiency as a level between 21 and 29 ng/mL (2).1. IOM ([place] of Medicine). 2010. Dietary reference intakes for calcium and D. [place]: The National Academies Press.2. Clari MF, Jose LEES, Ash NETTLES, et al. Evaluation, treatment, and prevention of vitamin D deficiency: an Endocrine Society clinical practice guideline. JCEM. 2010; 96(7):1911-30. :38 AUTUMN CULTURE-OTHER (68930) Comments: PATIENT NOT FASTINGPERFORMED BY: [facility] Ktmirn8439 [facility] [id number] Information: SRC:TH Result 1 RRF (Normal) Comments: Routine respiratory juan Upper Respiratory Culture Final report (Normal) 16-Bum-77670:32 AUTUMN CULTURE-OTHER (68030) Comments: PATIENT NOT FASTINGPERFORMED BY: [facility] Lqonaw8079 [facility] [id number] Information: SRC:TH Result 1 RRF (Normal) Comments: Routine respiratory juan Upper Respiratory Culture Final report (Normal) 10-Zxr-035485:35 Rapid Strep Test, Office (82868) Rapid Strep Test, Office Negative (Normal) 54-Sqa-613025:39 CBC W/Diff, Automated Comments: [facility] Uvlelnomlh6224 [address] [place], [place], [address] Absolute Lymph 3.19 {X10_3/ul} (Normal) Range: 0.83-4.51 [...] 4.2-5.4 WBC 9.6 K/mm3 (Normal) Range: 4.4-11.0 87-Abc-145551:39 Prothrombin Time w/INR Comments: [facility] Sozewmyfjc[address] [place], [place], [address] INR 1.0 (Normal) PROTIME 12.9 s (Normal) Range: 11.7-14.9 36-Eex-163756:58 CBC, Platelets & Auto Comments: PATIENT NOT FASTINGPERFORMED BY: LabCoAtlantic Rehabilitation InstituteBevnxo1928 [facility] [id number] Information: [id number] Diff (86782) Immature Grans (Abs) 0.0 {x10E3/uL} (Normal) Range: [...] (Normal) Range: 3.4-10.8 :58 T3, FREE (TRIDOTHYRONINE) (07695) Comments: PATIENT NOT FASTINGPERFORMED BY: NewsCrafted CromoUpUNC [facility] [id number] Triiodothyronine,Free,Serum 3.2 pg/mL (Normal) Range: 2.0-4.4 :58 T4, FREE (THYROXINE) (30513) Comments: PATIENT NOT FASTINGPERFORMED BY: [employer] [facility] HospitalFotoSwipeUNC Health [facility] [id number] T4,Free(Direct) 1.07 ng/dL (Normal) Range: 0.82-1.77 :58 TSH (54540) Comments: PATIENT NOT FASTINGPERFORMED BY: [employer] [facility] HospitalFotoSwipeUNC Health [facility] [place] [id number] TSH 2.830 {uIU/mL} (Normal) Range: 0.450-4.500 :58 HELICOBACTER PYLORI ANTIBODY Comments: PATIENT NOT FASTINGPERFORMED BY: NewsCrafted CromoUpUNC [facility] [id number] (75735) H. pylori, IgG Abs <0.9 U/mL (Normal) Range: 0.0-0.8 Comments: Negative <0.9 Indeterminate 0.9 - 1.0 Positive >1.0 1-Ogk-182398:46 Testosterone, Free+Total Comments: PATIENT NOT FASTINGPERFORMED BY: [address] [id number] BY: [facility]6370 [facility] [id number] Information: [id number] LC/MS Free Testosterone(Direct) 1.5 pg/mL Range: 0.0-4.2 (Normal) Testosterone, Total, LC/MS 11.8 ng/dL Range: 10.0-55.0 (Normal) Comments: This test was developed and its performance characteristicsdetermined by [employer]. It has not been cleared or approvedby the Food and Drug Administration. Written Authorization WAR (Normal) Comments: PATIENT NOT FASTINGPERFORMED BY: [address] [id number] BY: [facility]6370 [facility] [id number] 610:46 Comments: Written Authorization Received.Authorization received from PHILLIP LEIGH LPN 40-10-4951Sebenu by Chichi Flores 5-Hvb-556758:46 CALCIFIDIOL (84967) VIT D 25 Comments: PATIENT NOT FASTINGPERFORMED BY: [facility]6370 [facility] [id number] Vitamin D, 25-Hydroxy 41.9 ng/mL (Normal) Range: 30.0-100.0 Comments: Vitamin D deficiency has been defined by the [place] of[place]icine and an Endocrine Society practice guideline as alevel of serum 25-OH vitamin D less than 20 ng/mL (1,2).The Endocrine Society went on to further define vitamin Dinsufficiency as a level between 21 and 29 ng/mL (2).1. IOM ([place] of Medicine). 2010. Dietary reference intakes for calcium and D. [place]: The National Academies Press.2. Clari TONY, Jose LEES, Ash NETTLES, et al. Evaluation, treatment, and prevention of vitamin D deficiency: an Endocrine Society clinical practice guideline. JCEM. 2010; 96(7):1911-30. 1-Sio-029384:46 Metabolic Panel, Comments: PATIENT NOT FASTINGPERFORMED BY: [facility] Kqzvjn6206 [address] [facility] [id number] Information: [id number] Comprehensive (58788) ALT (SGPT) 21 [iU]/L (Normal) Range: 0-32 [...] Glucose, Serum 81 mg/dL (Normal) Range: 65-99 42-Qar-760928:16 Cortisol,Urinary Free 24- Comments: PATIENT NOT FASTINGPERFORMED BY: [facility] Govfziejux3571 [facility] [id number] Information: [id number] VOLUME 1800; fu 8-18 Hour Urine (53639) Cortisol,F,ug/24hr,U 18 {ug/24_hr} (Normal) Range: 0-50 Comments: This test was developed and its performance characteristicsdetermined by [facility]x [facility]. It has not been cleared or approvedby the Food and Drug Administration. Cortisol,F,ug/L,U 10 ug/L (Normal) 8-Eug-412257:46 HGB A1C (61834) Comments: PATIENT NOT FASTINGPERFORMED BY: [place] 7368770 [facility] [id number] Hemoglobin A1c 5.5 % (Normal) Range: 4.8-5.6 Comments: . Pre-diabetes: 5.7 - 6.4 Diabetes: >6.4 Glycemic control for adults with diabetes: <7.0 90-Cvh-164069:13 SEROTONIN (51761) Comments: PATIENT NOT FASTINGPERFORMED BY: [address] [id number] Information: [id number] Serotonin, Serum 10 ng/mL (Normal) Range: 0-420 67-Tbw-49371:42 TSH (THYROID STIMULATING Comments: PATIENT NOT FASTINGPERFORMED BY: [address] [id number] HORMONE) (73694) TSH 1.560 {uIU/mL} (Normal) Range: 0.450-4.500 :42 CBC, PLATELETS & MANUAL Comments: PATIENT NOT FASTINGPERFORMED BY: [address] [id number] Information: [id number] DIFF (36989) Immature Grans (Abs) 0.0 {x10E3/uL} (Normal) Range: [...] 3.77-5.28 WBC 8.2 {x10E3/uL} (Normal) Range: 3.4-10.8 48-Xls-17796:42 ESR-F (SED RATE ERYTHROCYTE - Comments: PATIENT NOT FASTINGPERFORMED BY: NewsCraftedAtlantic Rehabilitation InstituteMnfqxc9306 [facility] [id number] FEMALE) (39404) Sedimentation Rate-Westergren 25 mm/h (Normal) Range: 0-32 33-Jok-77713:42 PREALBUMIN (93083) Comments: PATIENT NOT FASTINGPERFORMED BY: NewsCraftedAtlantic Rehabilitation InstituteVddkfe5099 [facility] [id number] Prealbumin 28 mg/dL (Normal) Range: 9-31 Comments: [...] - 36 >70 years 9 - 32 88-Lct-346617:45 Urinalysis, Complete Comments: Order Date: 11/17/15How was Urine Obtained? BUFFET ATTENDANT TO [facility] Ckyranfknx3364 [facility]. [place], [place], [id number] MUCUS, URINE 0 SEEN {/hpf} (Normal) BACTERIA [...] CLARITY Sl. Cloudy (Normal) COLOR Yellow (Normal) 24-Cpr-49483:08 CBC W/Diff, Automated Comments: [facility] Ercwzuxpzd7482 [facility]. [place], [place], [address] Absolute Lymph 1.81 {X10_3/ul} (Normal) Range: 0.83-4.51 [...] 4.2-5.4 WBC 14.3 K/mm3 (Abnormal) Range: 4.4-11.0 18-Mec-45819:08 Comprehensive Metabolic Profil Comments: [facility] Npdrmumvel[address] [place], [place], [address] GAP 6 (Normal) Range: 5-15 CO2 27.0 [...] mg/dL (Normal) Range: 70-110 :08 Lipase Comments: [facility] Aadkudwgam[address] [place], [address] LIPASE 160 U/L (Normal) Range: 73-393 :08 ,Serum,hCG Quali. Comments: [facility] [address] [place], [address] HCGSQUAL NEGATIVE {Negative} Range: 0-9 Nonpreg (Normal) HCG Qual triggr < 1 m[iU]/mL (Normal) :00 LIPOMA (SOFT TISSUE) See Note (Normal) Comments: [facility] [address] [place], [address] Comments: Patient: SANDRA RATLIFF : 1980 (35/F) Acct Num: [id number] Phys: Yohan HARGROVE,Vi Unit Num: [id number] Loc: LABSPEC Specimen: [id number] Received: 11/09/151842 Spec Type: LIPOMA TISSUES TISSUES: GROSS DESCRIPTION Received is one container labeled with the patient name and designated abdominal lesion. The specimen consists of multiple irregular fragm ents of yellow fatty tissue that in aggregate measure 4 x 3 x 1 cm. Hand Drawer In portions are submitted in one cassette. / AM:shubham 11/10/15 TC:1 CPT:38089 HEADER OPERATION: Excision upper left a bdominal wall lesion PRE-OP DIAGNOSIS: Upper left abdominal wall lesion TISSUE SUBMITTED: Lipoma of abdominal wall MICROSCOPIC DESCRIPTION Slides are reviewed. MICROSCOPIC DIAGNOSIS Lipo ma of abdominal wall, excision: Mature adipose tissue, consistent with lipoma. SJ:shubham 11/11/15 Signed Yimi Zapata 11/11/15 <signature on file> 7-Vxb-881319:50 Culture, Blood (WB) Comments: [facility] Cch[address]vlgrlz[address] [place], [place], [address] CUB See Note (Normal) Comments: BCNo growth in 5 days. 2-Cag-998464:50 Culture, Blood (WB) Comments: [facility] Iwtphzmwnm[address] [place], [place], [address] CUB See Note (Normal) Comments: BCNo growth in 5 days. 75-Pql-02338:08 Urinalysis, Office (08663) UA - LEUKOCYTE ESTERASE Negative (Normal) UA - NITRITE Negative (Normal) URINE UROBILINGN DWAYNE TIMED Normal mg/dL (Normal) UA - PROTEIN 30 mg/dL (Normal) UA - PH 6 (Abnormal) UA - BLOOD Negative (Normal) UA - SPECIFIC GRAVITY 1.020 (Normal) UA - KETONES 15 ug/dL (Abnormal) UA - BILIRUBIN Moderate (Normal) UA - GLUCOSE Negative (Normal) 05-Nto-068830:10 Microscopic Examination Comments: PATIENT NOT FASTINGPERFORMED BY: NewsCraftedAtlantic Rehabilitation InstituteDtreem3[address] [place] [address] [id number] Bacteria Few (Normal) Mucus Threads Present (Normal) Cast Type Hyaline casts (Normal) Casts Present {/lpf} (Abnormal) Epithelial Cells (non renal) 0-10 {/hpf} (Normal) Range: 0 - 10 RBC 0-2 {/hpf} (Normal) Range: 0 - 2 WBC 6-10 {/hpf} (Abnormal) Range: 0 - 5 :51 ANCA Panel Comments: PATIENT NOT FASTINGPERFORMED BY: PLx PharmaDennis V[place] 226057 [facility] [id number] BY: NewsCraftedAtlantic Rehabilitation InstituteBopjsn3383 [facility] [id number] Information: [id number] Atypical pANCA <1:20 {titer} Comments: The atypical [...] follow up testing ofpositive sera with both MT-3 and MPO-ANCA enzyme immunoassays. Asmany as 5% serum samp les are positive only by EIA.Ref. AM J Clin Pathol 1999;111:507-513. Cytoplasmic (C-ANCA) <1:20 {titer} (Normal) Antiproteinase 3 (MT-3) Abs <3.5 U/mL Range: 0.0-3.5 (Normal) Antimyeloperoxidase (MPO) <9.0 U/mL Range: 0.0-9.0 Abs (Normal) Written Authorization WAR (Normal) Comments: PATIENT NOT FASTINGPERFORMED BY: [place]raftedCynthia [place] 973647 [facility] [id number] BY: NewsCraftedAtlantic Rehabilitation InstituteXfcapa7743 [facility] [id number] 612:51 Comments: Written Authorization Received.Authorization received from ERIKA RUANO LPN 48-17-7988Nwjuig by Shalini Ramos 13-Fnl-123254:51 CBC WITH MANUAL DIFF Comments: PATIENT NOT FASTINGPERFORMED BY: NewsC[employer] Hcyyxm4737 [facility] [id number] Information: [id number] (69028) Immature Grans (Abs) 0.0 {x10E3/uL} (Normal) Range: [...] 3.77-5.28 WBC 7.8 {x10E3/uL} (Normal) Range: 3.4-10.8 03-Tvx-202163:10 URINE AUTUMN CULTURE-IDENTIFICATN Comments: PATIENT NOT FASTINGPERFORMED BY: HelloFax BirdDog SolutionsBetsy [facility] [id number] (00285) Result 1 NG36 (Normal) Comments: No growth in 36 - 48 hours. Urine Culture,Comprehensive Final report (Normal) :51 COMPLEMENT C4 (52254) Comments: PATIENT NOT FASTINGPERFORMED BY: HelloFax GlofoxPemiscot Memorial Health Systems [id number] Complement C4, Serum 50 mg/dL (Abnormal) Range: 14-44 61-Sbi-229466:51 COMPLEMENT C3 (46336) Comments: PATIENT NOT FASTINGPERFORMED BY: HelloFax [employer] [facility] [id number] Complement C3, Serum 204 mg/dL (Abnormal) Range: 82-167 18-Imb-240778:58 COMPLEMENT, TOTAL (CH50) Comments: PATIENT NOT FASTINGPERFORMED BY: HelloFax GlofoxPemiscot Memorial [facility] Systems [id number] Information: [id number] (09252) Complement, Total (CH50) >60 U/mL (Abnormal) Range: 42-60 Comments: Please note reference interval change 60-Blp-924770:10 URINALYSIS (85577) Comments: PATIENT NOT FASTINGPERFORMED BY: PLx PharmaBlake V[place] 6815970 [facility] [id number] Information: [id number] Microscopic Examination See below: (Normal) Comments: Microscopic was indicated and was performed. Appearance Cloudy (Abnormal) Urine-Color [place] (Normal) Comments: Unable to read or assay due to color interference. Specific [place] 1.023 (Normal) Range: 1.005-1.030 38-Ltf-170152:51 HCG Qualitative, Serum (83799) Comments: PATIENT NOT FASTINGPERFORMED BY: PLx PharmaBlake [place] 6815970 [facility] [id number] hCG,Beta Subunit,Qual,Serum Negative m[iU]/mL (Normal) 29-Khd-647935:51 serum free light chains Comments: PATIENT NOT FASTINGPERFORMED BY: PLx PharmaBlake [place] 6815970 [facility] [id number] (80258) [place]/Lambda Ratio,S 1.97 (Abnormal) Range: 0.26-1.65 Free Lambda Lt Chains,S 16.13 mg/L (Normal) Range: 5.71-26.30 Free [place] Lt Chains,S 31.85 mg/L (Abnormal) Range: 3.30-19.40 31-Sdw-840234:51 urine immunofixation (05190) Comments: PATIENT NOT FASTINGPERFORMED BY: PLx PharmaUp Health System6370 [facility] [id number] IRWIN Interpretation:U UPEIP (Normal) Comments: No monoclonality detected. 45-Jeg-177537:51 serum immunofixation (82304) Comments: PATIENT NOT FASTINGPERFORMED BY: PLx PharmaUp Health System6370 [facility] [id number] Immunoglobulin M, Qn, Serum 68 mg/dL (Normal) Range: 40-230 Immunoglobulin A, Qn, Serum 192 mg/dL (Normal) Range: 91-414 Immunoglobulin G, Qn, Serum 1229 mg/dL (Normal) Range: 700-1600 Immunofixation Result, Serum IFENOR (Normal) Comments: An apparent normal immunofixation pattern. 41-Qni-955433:51 UPEP (26923) Comments: PATIENT NOT FASTINGPERFORMED BY: NewsCraftedAtlantic Rehabilitation InstituteVtmvkc5176 [facility] [id number] Please note: SPRCS (Normal) Comments: Protein electrophoresis scan will follow via computer, mail, orcourier delivery. M-Rene, % Not Observed % (Normal) Gamma Globulin, U 12.1 % (Normal) Beta Globulin, U 23.3 % (Normal) Botyr-2-Xwockpjb, U 28.7 % (Normal) Wyzgv-7-Khdqsijb, U 4.1 % (Normal) Albumin, U 31.8 % (Normal) Protein,Total,Urine 42.0 mg/dL (Abnormal) Range: 0.0-15.0 12-Uyd-763886:51 P-ANCA & C-ANCA (ANCA Comments: PATIENT NOT FASTINGPERFORMED BY: NewsCraftedAtlantic Rehabilitation InstituteNintof4241 [facility] [id number] PROFILE) 41064 x2 and 08533 x2 Mitochondrial (M2) Antibody <20.0 {Units} (Normal) Range: 0.0-20.0 Comments: Negative 0.0 - 20.0 Equivocal 20.1 - 24.9 Positive >24.9 . Mitochondrial (M2) Antibodies are found in 90-96% of patients with primary biliary cirrhosis. :51 C-REACT PROT HIGH SENS(hsCRP) Comments: PATIENT NOT FASTINGPERFORMED BY: NewsCraftedAtlantic Rehabilitation InstituteCnghqp8258 [facility] [id number] (93805) C-Reactive Protein, Cardiac 94.10 mg/L (Abnormal) Range: 0.00-3.00 Comments: Relative Risk for Future Cardiovascular Event Low <1.00 Average 1.00 - 3.00 High >3.00 25-Dqv-436497:32 DNA ANTIBODY-NATV/DBL ST (73173) Comments: PATIENT NOT FASTINGPERFORMED BY: PLx PharmaUp Health System6370 [facility] [id number] test code [id number] Anti-DNA (DS) Ab Qn <1 {IU/mL} (Normal) Range: 0-9 Comments: Negative <5 Equivocal 5 - 9 Positive >9 43-Dqy-841442:32 MICROALBUMIN: CREATININE Comments: PATIENT NOT FASTINGPERFORMED BY: [facility]6370 [facility] [id number] Information: [id number] RATIO (05885) AND (37667) Microalb/Creat Ratio 28.7 {mg/g_creat} (Normal) Range: 0.0-30.0 Microalbumin, Urine 76.1 ug/mL (Abnormal) Range: 0.0-17.0 Creatinine, Urine 265.3 mg/dL (Normal) Range: 16.0-327.0 19-Qui-546995:32 RPR (RAPID PLASMA REAGIN) Comments: PATIENT NOT FASTINGPERFORMED BY: [place] 7368770 [facility] [id number] (17020) RPR Non Reactive (Normal) 06-Jmb-590118:26 Systemic Lupus Profile A Comments: PATIENT NOT FASTINGPERFORMED BY: [facility]6370 [facility] [id number] Information: [id number] Anti-DNA (DS) Ab Qn <1 {IU/mL} Range: 0-9 (Normal) Comments: Negative <5 Equivocal 5 - 9 Positive >9 Sjogren's Anti-SS-B 0.4 {AI} (Normal) Range: 0.0-0.9 Sjogren's Anti-SS-A <0.2 {AI} (Normal) Range: 0.0-0.9 Antichromatin Antibodies 0.3 {AI} (Normal) Range: 0.0-0.9 RA Latex Turbid. 13.0 {IU/mL} Range: 0.0-13.9 (Normal) Tariq Antibodies <0.2 {AI} (Normal) Range: 0.0-0.9 MATERIAL DISPOSITION INSPECTOR Antibodies 2.7 {AI} Range: 0.0-0.9 (Abnormal) Written Authorization WAR (Normal) Comments: PATIENT NOT FASTINGPERFORMED BY: [facility]6370 [facility] [id number] 0:26 Comments: Written Authorization Received.Authorization received from MICHELLE REAVES MD 19-07-9536Shdkyk by Devi Biswas 72-Zod-513835:26 EB ANTIBODY VIRAL CAPSID Comments: PATIENT NOT FASTINGPERFORMED BY: [facility]6370 [facility] [id number] (92424) X2 Interpretation: SPRCS (Normal) Comments: EBV Interpretation [...] <36.0 Equivocal 36.0 - 43.9 Positive >43.9 88-Iib-361061:26 CALCIFIDIOL (34826) VIT D 25 Comments: PATIENT NOT FASTINGPERFORMED BY: [facility]Up [facility]6370 [facility] [id number] Vitamin D, 25-Hydroxy 48.4 ng/mL (Normal) Range: 30.0-100.0 Comments: Vitamin D deficiency has been defined by the [place] ofMedicine and an Endocrine Society practice guideline as alevel of serum 25-OH vitamin D less than 20 ng/mL (1,2).The Endocrine Society went on to further define vitamin Dinsufficiency as a level between 21 and 29 ng/mL (2).1. IOM ([place] of Medicine). 2010. Dietary reference intakes for calcium and D. [place]: The National Academies Press.2. Clari TONY, Jose LEES, Ash NETTLES, et al. Evaluation, treatment, and prevention of vitamin D deficiency: an Endocrine Society clinical practice guideline. JCEM. 2010; 96(7):1911-30. 40-Rrz-651626:26 Folate (35592) Comments: PATIENT NOT FASTINGPERFORMED BY: CB [facility] Iyfvtb8081 Amos RoadDublin [place] [id number] Folate (Folic Acid), Serum 8.4 ng/mL (Normal) Comments: A serum folate concentration of less than 3.1 ng/mL isconsidered to represent clinical deficiency. 06-Gpb-507915:26 VITAMIN B-12 (CYANOCOBALAMIN) Comments: PATIENT NOT FASTINGPERFORMED BY: CB [facility] Ysxmjg1231 Amos RoadDublin [place] [id number] (26894) Vitamin B12 280 pg/mL (Normal) Range: 211-946 24-Pce-108829:26 TSH (49990) Comments: PATIENT NOT FASTINGPERFORMED BY: CB [facility] Srejia6552 Amos RoadDublin [place] [id number] TSH 1.730 {uIU/mL} (Normal) Range: 0.450-4.500 63-Hze-524076:26 SED RATE ERYTHROCYTE (48749) Comments: PATIENT NOT FASTINGPERFORMED BY: CB [facility] Xtsvii2762 Amos RoadDublin [place] [id number] Sedimentation Rate-Westergren 48 mm/h (Abnormal) Range: 0-32 99-Pqm-283394:26 RHEUMATOID FACTOR-QUANT (13484) Comments: PATIENT NOT FASTINGPERFORMED BY: CB [facility] Xtvzrg9255 [address] RoadDublin [place] [id number] RA Latex Turbid. 13.3 {IU/mL} (Normal) Range: 0.0-13.9 36-Qyc-149140:26 METABOLIC PANEL, Comments: PATIENT NOT FASTINGPERFORMED BY: CB [facility] Uamsbd9007 Amos RoadDublin [place] [id number] Information: [id number] COMPREHENSIVE (67008) ALT (SGPT) 21 [iU]/L (Normal) Range: 0-32 [...] Glucose, Serum 101 mg/dL (Abnormal) Range: 65-99 68-Diw-427780:26 C-REACTIVE PROTEIN (29535) Comments: PATIENT NOT FASTINGPERFORMED BY: [employer]70 [address] [facility] [id number] C-Reactive Protein, Quant 157.4 mg/L (Abnormal) Range: 0.0-4.9 36-Cgu-518562:26 CBC (AUTO) (64366) Comments: PATIENT NOT FASTINGPERFORMED BY: HelloFax Wxngjl0650 [address] [facility] [id number] Platelets 275 {x10E3/uL} (Normal) Range: 150-379 RDW 13.4 % (Normal) Range: 12.3-15.4 MCHC 33.9 g/dL (Normal) Range: 31.5-35.7 MCH 29.6 pg (Normal) Range: 26.6-33.0 MCV 87 fL (Normal) Range: 79-97 Hematocrit 39.2 % (Normal) Range: 34.0-46.6 Hemoglobin 13.3 g/dL (Normal) Range: 11.1-15.9 RBC 4.50 {x10E6/uL} (Normal) Range: 3.77-5.28 WBC 13.8 {x10E3/uL} (Abnormal) Range: 3.4-10.8 20-Hpl-389749:26 KWAN (ANTINUCLEAR ANTIBODY) Comments: PATIENT NOT FASTINGPERFORMED BY: eDealyaUNC Health [facility] [id number] (75375) KWAN Direct Positive (Abnormal) 59-Kne-873618:21 Sed Rate Erythrocyte (39890) Comments: PATIENT NOT FASTINGPERFORMED BY: eDealyaUNC Health [facility] [id number] Sedimentation Rate-Westergren 20 mm/h (Normal) Range: 0-32 70-Ncs-212261:21 Metabolic Panel, Comprehensive Comments: copy to Dr. sanchez; PATIENT NOT FASTINGPERFORMED BY: [employer]70 [facility]sa [facility] StoreB[facility] [id number] (35054) ALT (SGPT) 23 [iU]/L (Normal) Range: 0-32 [...] Glucose, Serum 112 mg/dL (Abnormal) Range: 65-99 53-Ivx-477915:21 CBC, Platelets & Auto Comments: PATIENT NOT FASTINGPERFORMED BY: [facility] Kgtjny2413 [facility] [id number] Information: [id number] Diff (24758) Immature Grans (Abs) 0.0 {x10E3/uL} (Normal) Range: [...] 3.77-5.28 WBC 11.0 {x10E3/uL} (Abnormal) Range: 3.4-10.8 22-Xuu-820260:21 Lipase (65411) Comments: PATIENT NOT FASTINGPERFORMED BY: [facility] Tgdynq2096 [facility] [id number] Lipase, Serum 33 U/L (Normal) Range: 0-59 86-Zms-630496:23 GALLBLADDER See Note (Normal) Comments: Test performed at:[facility] [address] [place], [place] [address] Comments: Patient: SANDRA RATLIFF : 1980 (34/F) Acct Num: [id number] Phys: Yohan HARGROVE,Vi Unit Num: [id number] [place] [facility]imen: [id number] Received: 02/02/151541 Spec Type: GALL BLADDE TISSUES [...] average thickness andis free of mass lesions. Hand Drawer In sections of the gallbladder and the cystic duct are submitted in one cassette. / AM: 02/03/15 TC:3 CPT: 8 8304 HEADER OPERATION: Lap, cholecystectomy PRE-OP DIAGNOSIS: Calculus of gallbladder with acute cholecystitis TISSUE SUBMITTED: Gallbladder MICROSCOPIC DESCRIPTION Slides are reviewed. MICROSCOPIC DIAGNOSIS Gallbladder, cholecystectomy: Chronic cholecystitis and cholelithiasis. AM: 02/04/15 Signed Tr Schwabih 02/04/15 <signature on file> 55-Ygj-453240:10 ,Urine Comments: Test performed at:[facility] [address] [place] [address] ; ordered by another doctor HCGUQUAL Negative {Negative} (Normal) Comments: Very dilute urine specimens, as indicated by a low specificgravity, may not contain home furnishings sales representative levels of hCG.If is still suspected, a first morning urinespecimen should be collected 48 hours later and tested. :45 Basic Metabolic Profile (BMP) Comments: Test performed at:[facility] [address] [place] [address] GAP 10 (Normal) Range: 5-15 CO2 26.0 [...] Comments: Please note revised CREATININE reference range srwdszymt80/22/2015. BUN 13 mg/dL (Normal) Range: 7-18 GLU 112 mg/dL (Abnormal) Range: 70-110 Comments: Fasting Glucose result from 110 to <126 mg/dLsuggests IMPAIRED HOMEOSTASIS per A.D.A. criteria. :45 CBC W/Diff, Automated Comments: Test performed at:[facility] [address]fyx2324 [facility] [place] [address] Absolute Lymph 4.26 {X10_3/ul} (Normal) [...] Range: 4.4-11.0 :45 Lipase Comments: Test performed at:[facility] [address] [place] [address] LIPASE 136 U/L (Normal) Range: 73-393 :45 Liver Profile Comments: Test performed at:[facility] [address] [place] [address] 318481 D BILI < 0.05 mg/dL (Normal) Range: [...] 02/01/15How was Urine Obtained? CLEAN CATCHTest performed at:[facility] [address]0667 [facility] [address] 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 :45 Urinalysis, Complete Comments: Order Date: 02/01/15How was Urine Obtained? CLEAN CATCHTest performed at:[facility] O[address]wthab6786 [facility] [place], [place] [id number] MUCUS, URINE 0 SEEN {/hpf} (Normal) BACTERIA [...] (Normal) CLARITY Clear (Normal) COLOR Yellow (Normal) 0-Wne-648646:45 CALCIFIDIOL (09883) VIT D 25 Comments: PATIENT NOT FASTINGPERFORMED BY: [facility] Rzpfaq1867 [facility] [id number] Vitamin D, 25-Hydroxy 42.1 ng/mL (Normal) Range: 30.0-100.0 Comments: Vitamin D deficiency has been defined by the [place] of[place]icine and an Endocrine Society practice guideline as alevel of serum 25-OH vitamin D less than 20 ng/mL (1,2).The Endocrine Society went on to further define vitamin Dinsufficiency as a level between 21 and 29 ng/mL (2).1. IOM ([place] of [employer]). 2010. Dietary reference intakes for calcium and D. [place]: The National Academies Press.2. Clari MF, Jose LEES, Ash NETTLES, et al. Evaluation, treatment, and prevention of vitamin D deficiency: an Endocrine Society clinical practice guideline. JCEM. 2010; 96(7):1911-30. 1-Eee-920713:45 Metabolic Panel, Basic Comments: PATIENT NOT FASTINGPERFORMED BY: eDealyaUNC Health [facility] [place] [id number] Information: [id number] (55730) Calcium, Serum 9.6 mg/dL (Normal) Range: 8.7-10.2 [...] Glucose, Serum 100 mg/dL (Abnormal) Range: 65-99 51-Ndk-480165:50 Rapid Flu (70145 x 2) Influenza A Ag neg (Normal) :29 LIPID PANEL (89702) Comments: PATIENT WAS FASTINGPERFORMED BY: [employer] Qduczv5118 [facility] [id number] Information: [id number] LDL/HDL Ratio 2.6 {ratio_units} (Normal) Range: 0.0-3.2 [...] Metabolic Panel, Comments: PATIENT NOT FASTINGPERFORMED BY: [facility]CoAtlantic Rehabilitation InstituteKjfaoq4686 [facility] [id number] Information: [id number] Comprehensive (95767) ALT (SGPT) 25 [iU]/L (Normal) Range: 0-32 [...] 87 mg/dL (Normal) Range: 65-99 :50 CALCIFEDIOL (80251) Comments: PATIENT NOT FASTINGPERFORMED BY: [facility]6370 [facility] [id number] Vitamin D, 25-Hydroxy 42.6 ng/mL (Normal) Range: 30.0-100.0 Comments: Vitamin D deficiency has been defined by the [place] ofF[facility] Centercine and an Endocrine Society practice guideline as alevel of serum 25-OH vitamin D less than 20 ng/mL (1,2).The Endocrine Society went on to further define vitamin Dinsufficiency as a level between 21 and 29 ng/mL (2).1. IOM ([place] of [employer]). 2010. Dietary reference intakes for calcium and D. [place]: The National Academies Press.2. Clari MF, Jose [place], Ash NETTLES, et al. Evaluation, treatment, and prevention of vitamin D deficiency: an Endocrine Society clinical practice guideline. JCEM. 2010; 96(7):1911-30. 18-Rrs-926196:08 CATU tDOP 108 ug/L (Normal) tDOP24 255 [...] :08 MISC . (Normal) Comments: TEST RESULT UAFKSD69-Pdzznfueogbkvoqrxab, MS 17 [place] Pregnenolone, Serum MS < 10 ng/dL Reference Range: Adults: 53 - 357 TESTING [facility]FOR[facility] AT [facility]. ORIGINAL REPORT ON FILE IN LAB CONTAINS ADDITIONAL TEST SITE INFORMATION. :08 PROL 10.2 ng/mL (Normal) Range: 4.8-23.3 :08 TESTOF <0.2 pg/mL (Normal) Range: 0.0-2.2 Comments: Performed at: - [facility] [address] [id number] Director: Davide Jordan MD, Phone: [phone] at: - [facility] [place] [address]Qaq Director: Andra Reyes MD, Phone: [phone] VMA tVMA24 3.1 {mg/24_hr} (Normal) Range: [...] mg/dL (Normal) Range: 70-110 :56 VIT D,25 67693 33.7 ng/mL (Normal) Range: 30.0-100.0 Comments: Vitamin D deficiency has been defined by the [place] of[place]icine and an Endocrine Society practice guideline as alevel of serum 25-OH vitamin D less than 20 ng/mL (1,2).The Endocrine Society went on to further define vitamin Dinsufficiency as a level between 21 and 29 ng/mL (2).1. IOM ([place] [employer]). 2011. Dietary reference intakes for calcium and D. [place]: The National Academies Press.2. Clari MF, Jose [place], Ash NETTLES, et al. Evaluation, treatment, and prevention of vitamin D deficiency: an Endocrine Society clinical practice guideline. JCEM. 2010; 96(7): 1911-30.Performed at: [facility] Lab[address] [id number] Director: Andra Reyes MD, Phone: [phone] 26-Rkt-860502:57 MICROALB:CRE UR MALB:CREAT 25.7 {mg/g_CRE} (Normal) MICROALBUMIN,UR 40.9 mg/L (Normal) UR CREAT 159.1 mg/dL (Normal) 7-Aqr-370789:09 MYOCARD PERF STRESS/REST MULT Radiology Report See Note (Normal) Comments: EXERCISE MYOCARDIAL PERFUSION SCAN UEKMCFIQuvjmg-edkq-phq with a history of hypertension and abnormal EKG. UYMPMQOYQ85 mCi of Sestamibi was injected at rest. [...] by: Stephane Boyle MD : VIT D,25 35377 28.7 ng/mL Range: 32.0-100.0 10 (Abnormal) Comments: Recent studies consider the lower limit of 32.0 ng/mL to gyu threshold for optimal health.Rakan BOWENS. J Nutr. 2004;135(2):317- 22.Performed at: - [facility] [address] [id number]Lab Director: Andra Reyes MD, Phone: [phone] TSH 2.62 {uIU/mL} Range: 0.358-3.74 :41 (Normal) [...] BETA STREPTOCOCCUS :28 Rapid Strep Test, Office (61068) Rapid Strep Test, Office Negative (Normal) :39 HCG QUANT. 60944 m[iU]/mL (Abnormal) :39 ,SERUM HCGSQUAL SeeNote m[iU]/mL [...] hypertension : Follow up in 1 week [facility] Indication: Elevated blood-pressure reading without diagnosis of hypertension Abnormal EKG : Follow up in 2 weeks with MEC or DB Indication: Abnormal EKG Palpitations : *palpitation discusssion Indication: Palpitations Elevated blood-pressure reading without diagnosis of hypertension : BP MONITORING - SELF Indication: Elevated blood-pressure reading without diagnosis of hypertension Planned Observations Food Allergy Profile (75977)Indication: Allergic to food (Renamed from Food allergy) On: :28 Request T4, FREE (THYROXINE) (12592)Indication: Abnormal thyroid blood test On: :22 Request TSH (15187)Indication: Abnormal thyroid blood test On: :22 Request CALCIFIDIOL (97304) VIT D 25Indication: Vitamin D deficiency, unspecified On: : Request CBC (Auto) (24995)Indication: KWAN positive On: : Request Metabolic Panel, Comprehensive (39702)Indication: KWAN positive On: : Request Thin prep Pap (40525) (no STD testing)Indication: Well woman exam (Renamed from Encounter for well woman exam) On: :13 Request PT (Prothrobim Time) (25661)Indication: Preop examination On: 36 Request CBC WITH MANUAL DIFF (60798)Indication: Preop examination On: :36 Request T4, FREE (THYROXINE) (94429)Indication: Abnormal thyroid blood test On: Request TSH (04131)Indication: Abnormal thyroid blood test On: Request CALCIFIDIOL (41324) VIT D 25Indication: Vitamin D deficiency, unspecified On: Request MICROALBUMIN: CREATININE RATIO (10287) AND (23143)Indication: Proteinuria On: Request METABOLIC PANEL, COMPREHENSIVE (12537)Indication: Antiphospholipid syndrome On: Request CBC with auto diff (89804)Indication: Antiphospholipid syndrome On: Request LIPOPROTEIN, BLD, BY NMR (90958)Indication: Hyperlipidemia, unspecified hyperlipidemia type On: Request MICROALBUMIN: CREATININE RATIO (60718) AND (85841)Indication: Proteinuria On: : Request LEUKOCYTE COUNT, FECAL (16816)Indication: Abdominal pain, acute On: 50-Mlc-961070:10 Request OVA & PARASITE DIR SMEAR (80133)Indication: Abdominal pain, acute On: 41-Ozf-736600:10 Request Clostridium difficile Toxin A+B, EIA (80235)Indication: Abdominal pain, acute On: 19-Hak-428257:10 Request AUTUMN CULTURE-STOOL (27095)Indication: Abdominal pain, acute On: 65-Onk-165431:10 Request Rapid Flu (27651 x 2)Indication: Flu-like symptoms On: 47-Jmr-993453:01 Request EB ANTIBODY NUCLR ANTIGN (09800)Indication: Fatigue On: 39-Vhx-974688:01 Request Rapid Flu (88330 x 2)Indication: Fever and chills On: 04-Xgw-838885:00 Request POTASSIUM SERUM (92700)Indication: Hypokalemia On: 4-Ipx-755267:48 Request PROLACTIN (35371)Indication: Amenorrhea On: :56 Request DHEA-S (DEHYDROEPIANDROSTERONE SULFATE) (77478)Indication: Amenorrhea On: :55 Request TESTOSTERONE FREE (09090)Indication: Amenorrhea On: :55 Request 17-HYDROXYPREGNENOLONE (58305)Indication: Amenorrhea On: :52 Request CORTISOL FREE (88837)Indication: Elevated blood-pressure reading without diagnosis of hypertension On: :49 Request METANEPHRINES - URINE (32380)Indication: Elevated blood-pressure reading without diagnosis of hypertension On: :49 Request CATECHOLAMINES TOTAL, URINE (63292)Indication: Elevated blood-pressure reading without diagnosis of hypertension On: :49 Request URINE VMA (10146)Indication: Elevated blood-pressure reading without diagnosis of hypertension On: :49 Request Metabolic Panel, Basic (23931)Indication: Stress reaction On: :29 Request MICROALBUMIN: CREATININE RATIO (29362) AND (94889)Indication: Unspecified Diagnosis On: 79-Ruk-530978:18 Request CALCIFEDIOL (25704)Indication: Elevated blood-pressure reading without diagnosis of hypertension On: 63-Gla-724663:14 Request TSH (96448)Indication: Elevated blood-pressure reading without diagnosis of hypertension On: 87-Csf-054297:13 Request METABOLIC PANEL, COMPREHENSIVE (66387)Indication: Nausea On: :40 Request Lipase (63238)Indication: Nausea On: 26-Hsn-735176:40 Request TEST - SERUM QUANTITATIVE (HCG) (03824)Indication: Amenorrhea On: :40 Request Amylase (58829)Indication: Nausea On: :40 Request METABOLIC PANEL, COMPREHENSIVE (33382)Indication: Palpitations On: :47 Request CBC WITH MANUAL DIFF (33164)Indication: Palpitations On: :47 Request TSH (01601)Indication: Palpitations On: :47 Request AUTUMN CULTURE-OTHER (89765)Indication: Acute pharyngitis On: :28 Request BHCG (HUMAN CHORIONIC GONADOTROPIN - BETA) (92400)Indication: Amenorrhea On: 54-Ing-311965:22 Request HCG (HUMAN CHORIONIC GONADOTROPIN) (73441)Indication: Amenorrhea On: 74-Yuq-003352:22 Request Planned Encounters Medical; [facility] 2 Month FU - On: 26-Jun-2018 9:15 [facility] Jensen HARGROVE, Michelle Riley MD Planned Procedures MRI OF LEFT KNEE WITHOUT CONTRAST On: 20-Feb-2018 Intent (15435)By: Michelle Reaves MD Comments: will plan for 4 weeks. Michelle HARGROVE DRAIN/INJECT MAJOR JOINT OR BURSA On: 10-Feb-2018 Intent (26573)By: Michelle Reaves MD Comments: 2 cc Marcaine lot# [id number] 1 cc kenalog lot# [id number] exp rte: left knee intra articular dose: as above given by:Dr. Reaves ABN signedER, Michelle MIRANDA MD Radiology - Knee - Left - Weight On: 07-Feb-2018 Intent BearingBy: Michelle Reaves MD, MD, Dana M SPECIMEN HNDLNG/TRNSPRT, OFFC > LAB On: 18-Jun-2016 Intent (05991)By: Michelle Reaves MD, MD, Dana M SPECIMEN HNDLNG/TRNSPRT, OFFC > LAB On: 04-Jun-2016 Intent (31257)By: Michelle Reaves MD, MD, Dana M Radiology - Small Bowel Series On: 18-Nov-2015 Intent (87272)By: Michelle Reaves MD, MD, Dana M Radiology - KUBBy: Kirsten Arias CNP On: 31-Aug-2015 Intent Comments: call to MCiesa INFUSION, NORMAL SALINE SOLUTION , On: 31-Aug-2015 Intent 1000 CC (Special Coverage Comments: 1000 ccIVleft antecub.tolerated well22 guagelot 57-007jtexp 03/2017as, RECYCLING TECH Instructions Apply. See MCM: 2049) (J7030)By: Kirsten [...] read. ELECTROCARDIOGRAM, COMPLETE (ECG) On: 19-Jan-2014 Intent (57503)By: Michelle Reaves MD, MD, Dana M Eprescribed prescriptions (G8553)By: On: 02-Jun-2013 Intent Long RECYCLING TECH, Kathy L EKG (20896)By: Michelle Reaves MD On: 27-Jan-2013 Intent Michelle Reaves MD Comments: see scanned document of test done to see results reviewed today with patient Eprescribed prescriptions (G8553)By: On: 27-Jan-2013 Intent Long RECYCLING TECH, Kathy L TDAP VACCINE >7 IM (92251)By: Jensen On: 30-Apr-2011 Intent Michelle HARGROVE MD, Dana M FLU VAC, SPLIT, >3 YEARS, INTRAMUSC On: 30-Apr-2011 Intent (93781)By: PHILLIP Leigh Comments: Lot #:[id number] date:mount given:0.5mlRoute: IMSite given:left deltoid Given by: LANDONryrenetta IMMUNIZ ADMNIN, 1 VAC, SNGL/COMBO On: 30-Apr-2011 Intent (40789)By: PHILLIP Leigh Nuclear Stress Test/Stress On: 05-Mar-2011 Intent SPECT/TreadmillBy: Kirsten Arias CNP ELECTROCARDIOGRAM, COMPLETE (ECG) On: 05-Mar-2011 Intent (92498)By: Kirsten Arias CNP Bio Z (69258)By: Kirsten Arias CNP On: 05-Mar-2011 Intent Holter Moniter (64555)By: Pop HORAN, On: 29-Nov-2010 Intent Atiya EKG (77477)By: Indu Mai LPN On: 29-Nov-2010 Intent Comments: [...] Advance Directives Name Dates Details Immunization Registry [place] - Effective on Effective: 05-Jul-201707/05/2017. Expiration date [...] fever. Note for Insect bite/sting: was in [place]- she got lots of bites not sure [...] Nutrition: balanced diet and supplemental vitamins. 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
--- OUTSIDE RECORDS SUMMARY | 2018-08-05 17:26 | XMS RPT_ITS | Continuity of Care Document ---
:1980 Author Organization [facility] Address [address] [address] Phone Care Team Providers Name Role Phone [...] grade fever. Dr. 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 rightn ow no [...] saw Dr. Josh Lemus in vasuclar at [facility] and Dr. Jessica jama at [facility] severe preeclampsia Status: Active Hives (L50.9, 708.9) [...] not feel need at much to [facility]. talk about l oggong but OCd went [...] Lenz Start : 23-Feb-2016 Active Comments:twenty Creon 36189 UNIT Oral Capsule Delayed Release Particles 1 [...] days Quantity: 30 {Tablet} Refills: 1 Ordered:11-Apr-2018 Jensen HARGROVE, Michelle Mcdaniels MD Start : 11-Apr-2018 Active Lotrisone 1-0.05 % External Cream 1 (one) Application Application bid to affected areas for 0 days Quantity: 1 {Tube} Refills: 0 Ordered:24-Jan-2018 PHILLIP Leigh Start : 17-Dec-2017 Active Previfem 0.25-35 MG-MCG Oral Tablet 1 Tablet qd for 0 days Quantity: 3 {Package} Refills: 3 Ordered:22-May-2018 Michelle Reaves MD, MD, Dana M Start : 22-May-2018 Active Comments:OCP Probiotic 250 MG Oral Capsule (250 MG) [...] days Quantity: 28 {Capsule} Refills: 0 Ordered:26-Jul-2017 Michelle Reaves MD, MD, [...] : 24-Jan-2018 End : 07-Feb-2018 Inactive ERGOCALCIFEROL, 01264XXQZ (Oral Capsule) 1 Capsule twice weekly for 0 days Quantity: 24 {Capsule} Refills: 0 Ordered:04-Jul-2011 Long SYSTEMS INTEGRATORKathy L Start : 19-Mar-2011 End : 04-Jul-2011 Inactive [...] : 02-Feb-2011 End : 30-Apr-2011 Inactive Nystatin 120656 UNIT/GM External Powder 1 (one) Powder Powder [...] days Quantity: 10 {Tablet} Refills: 0 Ordered:31-May-2015 Michelle Reaves MD, MD, Michelle Lenz Start : 31-May-2015 End [...] with Free 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 KUB done [...] hypertension (R03.0, 796.2) Comments: better now off [facility]. Status: Inactive as of 01-Mar-2014 Elevated WBC [...] 686.9) Comments: went into [facility] after at [facility] in [place]. will do soap cleanses [...] resolve on atb and will follow up [facility] ent Status: Resolved as of [...] Pap Smear Completed Comments: Date Value Details 06-May-2018 Orthopedic Visit Report Result: Comments: See Note; NOTES: [facility] [address] [place] [address] OFFICE VISIT Date of Service: 05/06/18 MR#: [id number] Acct: [id number] Name: SANDRA RATLIFF Rep #: [id number] : 1980 Provider: Ofe Jay DO Age/Sex: 37/F [place] [facility] [place] [place]: Signed Intake Intake Visit Reasons: LEFT KNEE Is patient in pain?: Yes Al lergies amoxicillin Allergy (Verified 05/06/18 15:24) Rash tobramycin Allergy (Verified 05/06/18 15:24) Other Medications Cholecalciferol (VIT D3) [Vitamin D] 2,000 unit PO DAILY 02/01/15 [History C onfirmed 11/17/15] Norgestimate-Ethinyl Estradiol [Sprintec] 1 ea PO DAILY 02/01/15 [History Confirmed 11/17/15] Sertraline HCl [Zoloft] 50 mg PO DAILY 02/01/15 [History Confirmed 11/17/15] Spironolacto ne [Aldactone] 200 mg PO DAILY 02/01/15 [History Confirmed 11/17/15] proMETHazine tablet [Phenergan] 25 mg PO Q6H PRN PRN #10 tab 02/01/15 [Rx Confirmed 11/17/15] Aspirin E.C. [Ecotrin] 81 mg PO DAILY@0 800 02/02/15 [History Confirmed 11/17/15] Dicyclomine HCl [Bentyl] 20 mg PO TID PRN #10 cap 11/17/15 [Rx] Hydrocodone Bitart/Apap 5-325 [Kenduskeag 5/325] 1 - 2 tab PO Q4H PRN PRN #12 tab 11/17/15 [Rx] Ondan setron [Zofran Odt] 4 mg PO Q8H PRN PRN #10 tab 11/17/15 [Rx] PFSH Social History Smoking Status: Never smoker HPI LEFT KNEE: Details: SANDRA RATLIFF is a 37 year old F here today for left knee p ain. Patient notes that she has had left knee pain since mid January. She states that she was getting into her car and felt a pop. Patient states that she had immediate swelling which has been there since her injury. She has pain over her medial knee and superior knee. Patient has popping in her knee. She denies any instability. Patient notes that she had an incident of locking where she was unable to mo ve her knee for 30 minutes- localized medially along joint line-. Patient had xrays and MRI which are here for review. Patient had a cortisone injection in February which was not helpful. She completed 12 sessions of physical therapy which helped with strengthening but she continues to have popping and swelling. She has a knee sleeve which she wears at times. Denies numbness, tingling or other associate d symptoms. ROS Const Reports system reviewed and no additional complaints, except as docu Eyes Reports system reviewed and no additional complaints, except as docu ENT Reports system reviewed and no a dditional complaints, except as docu Card Reports system reviewed and no additional complaints, except as docu Resp Reports system reviewed and no additional complaints, except as docu GI Reports system reviewed and no additional complaints, except as docu Reports system reviewed and no additional complaints, except as docu Musc Reports joint pain, Reports joint swelling Skin/Breast Reports system reviewed and no additional complaints, except as docu Neuro Yes system reviewed and no additional complaints, except as docu Psych Reports system reviewed and no additional complaints, except as docu En do Reports system reviewed and no additional complaints, except as docu Ortho Exam Left Knee Skin/Wound: Yes CDI Contralateral Normal: Yes Swelling: Yes Homans Sign: No Knee ROM: Yes ROM-Extension -20 to 0, Yes ROM-Flexion 0-140 Examination: Yes med jt line tenderness, No Lat jt line tenderness, No Pain with flexion, Yes Chip's Test Assessment AND Plan 1. Left knee pain M25.562 Plan Personally reviewed the MRI and explained that she has medial jt line pain on exam but on MRI she has degenerative tears in both med and lat sides which is what is causing the locking. Her treatment options are d o nothing, injection, NH-EYE eval or knee scope for debridement. We will discuss with Dr Reaves regarding post op anticoagulant. Reviewed the pre-operative plans with the patient. Risks and benefits o f the procedure were fully explained, including but not limited to infection, neurovascular injury, continued pain, arthritis, stiffness, need for further surgery, re-injury, DVT, PE, general risks of a nesthesia, and loss of limb or life. The patient understands all the risks and does wish to proceed with written consent. Follow up post op or sooner if pain, swelling, numbness or associated symptoms, or concerns develop. All questions answered. Patient in agreement of plan. 2. 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 05/06/18 6125 <Electronically signed by Ofe Jay DO> Date Ofeshari Jay Darby Signature: Date (if applicable) CC: 03-Apr-2018 Lower Ext Joint Only (Routine) Result: Comments: See Note; NOTES: [facility] Imaging Services [address] [place] [address] Lower Ext Joint Only (Routine) MR#: [id number] Acct: [id number] Name: SANDRA RATLIFF Rep #: [id number] : 1980 F 37 From: Laurent Amos MD PCP: Michelle Reaves MD Status: REG CLI Study: Lower Ext Joint Only (Routine) Date of Exam: 04/03/18 Exam# [id number] Ordering Dr: Michelle Reaves MD STUDY: MRI [...] Service support , CC: Michelle Reaves MD Independent Driver: Signed 31-Mar-2018 PT D/C Summary (1) Result: Comments: See Note; NOTES: [facility] [address] [place] [address]. [address] [place], [place] [id number] Fax REHABILITATION SERVICES [facility] SUMMARY MR#: [id number] Acct: [id number] Name: SANDRA RATLIFF Rep #: [id number] : 1980 37 From: Keri Mack PT, Cert. MDT Referring Dr.: Michelle Reaves MD Status: REG RCR Insurance: [facility] SELF PAY INSURANCE HP - PT D/C [...] KNEE COMPARED TO OTHER KNEE. Motor deficit: ANTE LE STRENGTH GROSSLY 5/5 WITH MMT'ING EXCEPT [...] please feel free to call me at [phone]. Thank you for the referral of this patient. Sincerely, Krei Mack <Electronically signed by Keri Mack PT, Cert. MDT> 03/31/18 1407 CC: Michelle Reaves MD ZELDA Signed 04-Mar-2018 Inital Evaluation (1) - PT Result: Comments: See Note; NOTES: [facility] [address] [facility] [place] [address] Fax REHABILITATION SERVICES INITIAL EVALUATION MR#: [id number] Acct: [id number] Name: SANDRA RATLIFF Rep #: [id number] : 1980 37 From: Keri Mack PT, Cert. MDT Referring Dr.: Michelle Reaves MD Status: REG RCR [facility] Patient's Visit Information [...] - Subjective Encarnacion bjective: Work/Leisure: [employer]. Disability: NO. Present symptoms: INSIDE OF LEFT KNEE. NO NUMBNESS OR TINGLING. IT POPS. Present since: MID JANUARY 2018. Pain Scale: WORST 5/10, LEAST 1/10. Currently: 10. Commenced as a result of: GETTING INTO [...] to be FAXED BACK to us at [phone] for Medicare purposes. Please let me know if there are questions or concerns regarding this plan of c are. Physician Signature: Date: <Electronically signed by Keri Mack PT, Cert. MDT> 03/04/18 1248 CC: Michelle Butterfield ZELDA Signed For Medicare only, by signing this I certify the plan of care. Physicians Signature Date 08-Feb-2018 Knee 4 or More Views Result: Comments: See Note; NOTES: [facility] Imaging Services [address] [facility] [place] [address] Knee 4 or More Views MR#: [id number] Acct: [id number] Name: SANDRA RATLIFF Rep #: [id number] : 1980 F 37 From: Caity Felix MD PCP: Michelle Reaves MD Status: REG CLI Study: Knee 4 or More Views Date of Exam: 02/08/18 Exam# [id number] Ordering Dr: Michelle Reaves MD STUDY: X-RAY - LEFT KNEE REASON FOR EXAM: Female, 37 years old. Gray pop swelling pain TECHNIQUE: 4 view(s) of [...] Tel , Service support , Fa x [phone] CC: Michelle Reaves MD Independent Driver: Signed 22-Nov-2015 Emergency Department Summary Result: Comments: See Note; NOTES: [facility] Medical Records Department [address] [place] [address] Emergency Department Summary MR#: [id number] Acct: [id number] Name: SANDRA RATLIFF Rep #: [id number] : 1980 35 From: Bulmaro Rodriguez MD PCP: Michelle Reaves MD Status: DEP ER DATE OF SERVICE: 11/17/2015 METHOD OF [...] with Dr. Reaves, return with any problems. [place] diet, fluids. CLINICAL IMPRESSION: Abdominal pain with nausea and diarrhea. DISPOSITION: Home. MD Chase Odom C: Michelle Reaves MD T: NTS JOB: [id number] 11/22/15 2339 <Electronically signed by Bulmaro Rodriguez MD> Date Bulmaro Rodriguez MD Cosigner Signature (If Indicated): Date CC: Michelle Reaves MD Date Dictated: 11/17/15 1240 Date Transcribed: 11/17/15 124 Independent Driver: Signed 22-Nov-2015 Small Bowel Series Only Result: Comments: See Note; NOTES: [facility] Imaging Services [address] [place] [address] Verdana 4d Small Bowel Series Only MR#: [id number] Acct: [id number] Name: HER SANDRA MCKEON Rep #: [id number] : 1980 F 35 From: Leigha Colon MD PCP: Michelle Reaves MD Status: REG CLI Study: Small Bowel Series Only Date of Exam: 11/22/15 Exam# [id number] Ordering Dr: Michelle Medina MD STUDY: AIR-CONTRAST [...] spot views were obtained COMPARISON: None. FINDINGS: Spinner Frame view: The bowel gas pattern is unremarkable [...] at 16:48 EDT Tel , Service support [phone], RAD/Small Bowel Series Only IMPRESSION: Unremarkable study. Electronically Signed: Leigha Colon MD at 16:48 E DT Tel , Service support [phone], CC: Michelle Reaves MD Independent Driver: Signed 17-Nov-2015 Discharge Instruction Result: Comments: See Note; NOTES: [facility] Medical Records Department [address] [place] [address] Discharge Instruction 11/17/15 1236 MR#: [id number] Acct: [id number] Name: SANDRA RATLIFF Rep #: [id number] : 1980 35 From: Bulmaro Rodriguez MD PCP: Michelle Reaves MD Status: REG ER ED Disposition - Plan for ED Patient: Disposition: Home or Assisted Living Chief Complaint: Abd Pain Instructions: ED Abdominal Pain, Unknown Cause, (Female), ED Vomiting And Diarrhea, Nonspecific (Adult) Prescriptions: Hydrocodone Bitart/Apap 5-325 [[place]end[place]ag 5/325] 1 - 2 t ablet PO [...] problems, contact your doctor. Call [facility] ([phone]) or report to the closest [facility] Room. Call 911 if necessary. 11/17/15 1238 <Electronically signed by Bulmaro Rodriguez MD> Date Bulmaro [place] (If Indicated): Date CC: Michelle Reaves MD 17-Nov-2015 Abdomen/Pelvis WITH Contrast Result: Comments: See Note; NOTES: [facility] Imaging Services [address] [place] [address] Verdana 4d Abdomen/Pelvis WITH Contrast MR#: [id number] Acct: [id number] Name : SANDRA RATLIFF Rep #: [id number] : 1980 F 35 From: Isaac Espinoza MD PCP: Michelle Reaves MD Status: [facility] ER Study: Abdomen/Pelvis WITH Contrast Date of Exam: 11/17/15 Exam# [id number] O rdering Dr: Bulmaro Rodriguez MD STUDY: CT ABDOMEN AND PELVIS WITH CONTRAST REASON FOR EXAM: Female, 35 years old. Mid lower abdominal pain. Diarrhea and nausea. RADIATION DOSAGE (If Supplied By [facility]): CTDIvol = ( 18.40 ) mGy, DLP = ( 1366.61 ) mGycm TECHNIQUE: Transaxial images were obtained from the dome of the diaphragm to the symphysis pubis with oral contrast. 100ML ml of Isovue 300 c ontrast was administered. Sagittal and coronal images were reconstructed. Individualized dose optimization techniques were used for this CT. COMPARISON: Comparison is made with prior study dated Ja [facility] 2015. FINDINGS: The visualized lung bases are [...] Isaac Espinoza MD at 12:27 EDT Tel [phone], Service support [phone], CC: Michelle Reaves MD; Bulmaro Rodriguez MD Independent Driver: Signed 13-Nov-2015 Operative Report Result: Comments: See Note; NOTES: [facility] Medical Records Department [address] [place] [address] Operative Report MR#: [id number] Acct: [id number] Name: LANNYNITIN Rep #: [id number] : 1980 35 From: Vi Sanchez MD [...] complications. Vi Sanchez MD T: NTS JOB: [id number] 11/13/15939 <Electronically sig shawn by Vi Sanchez MD> Date Vi Sanchez MD Cosigner Signature (If Indicated): Date C C: Michelle Reaves MD; Vi Sanchez MD Date Dictated: 11/07/15910 Date Transcribed: 11/07/15910 Independent Driver: Signed 31-Aug-2015 Abdomen Single View Result: Comments: See Note; NOTES: [facility] Imaging Services [address] [place] [address] Verda 4d Abdomen Single View MR#: [id number] Acct: [id number] Name: SANDRA RATLIFF Rep #: [id number] : 1980 F 35 From: Isaac Espinoza MD PCP: Michelle Reaves MD Status: REG CLI Study: Abdomen Single View Date of Exam: 08/31/15 Exam# [id number] Ordering Dr: Kirsten Arias STUDY: X-RAY - [...] Isaac Espinoza MD at 13:18 EST Tel [phone], Service support [phone], RAD/Abdomen Single View IMPRESSION: Normal x-ra y examination of the abdomen and pelvis. Electronically Signed: Isaac Espinoza MD at 13:18 EST Tel [phone], Service support [phone], CC: Kirsten Arias ; Michelle Reaves MD Independent Driver: Signed 29-Jul-2015 Transvaginal Non- Result: Comments: See Note; NOTES: [facility] Imaging Services [address] [place] [address] Verdana 4d Transvaginal Non- MR#: [id number] Acct: [id number] Name: SANDRA ZAVALA Rep #: [id number] : 1980 F 35 From: Isaac Espinoza MD PCP: Michelle Reaves MD Status: REG CLI Study: Transvaginal Non- Date of Exam: 07/29/15 Exam# [id number] Orderi ng Dr: Michelle Reaves MD STUDY: ULTRASOUND OF [...] Isaac Espinoza MD at 14:01 EST Tel [phone], Service support [phone], CC: Michelle Reaves MD Independent Driver: Signed 29-Jul-2015 Pelvic (Non ) Result: Comments: See Note; NOTES: [facility] Imaging Services [address] [place] [address] Verdana 4d Pelvic (Non ) MR#: [id number] Acct: [id number] Name: SANDRA BELLE Rep #: [id number] : 1980 F 35 From: Isaac Espinoza MD PCP: Michelle Reaves MD Status: REG CLI Study: Pelvic (Non ) Date of Exam: 07/29/15 Exam# [id number] Ordering Dr: Michelle Ponce MD STUDY: ULTRASOUND [...] Isaac Espinoza MD at 14:01 EST Tel [phone], Service support [phone], CC: Michelle Reaves MD Independent Driver: Signed 25-Jul-2015 Abdomen/Pelvis WITH Contrast Result: Comments: See Note; NOTES: [facility] Imaging Services [address] [place] [address] Verdana 4d Abdomen/Pelvis WITH Contrast MR#: [id number] Acct: [id number] Name : SANDRA RATLIFF Rep #: [id number] : 1980 F 35 From: Isaac Espinoza MD PCP: Michelle Reaves MD Status: REG CLI Study: Abdomen/Pelvis WITH Contrast Date of Exam: 07/25/15 Exam# [id number] Ordering Dr: Michelle Reaves MD STUDY: CT [...] Isaac Espinoza MD at 9:19 EST Tel [phone], Service support [phone], CC: Michelle Reaves MD Independent Driver: Signed 07-Jul-2015 Abdomen Limited Result: Comments: See Note; NOTES: [facility] Imaging Services [address] [facility] [place] [address] Wichodana 4d Abdomen Limited MR#: [id number] Acct: [id number] Name: JEANNIE RATLFIF Rep #: [id number] : 1980 F 35 From: Leigha Colon MD PCP: Michelle Reaves MD Status: REG CLI Study: Abdomen Limited Date of Exam: 07/07/15 Exam# [id number] Ordering Dr: Michelle Reaves MD STUDY: ABDOMINAL [...] at 16:22 EST Tel , Service support [phone], CC: Michelle Reaves MD Independent Driver: Signed 22-Apr-2015 OT Discharge Summary Result: Comments: See Note; NOTES: [facility] [address] [facility] [place] [address] Fax REHABILITATIO N SERVICES DISCHARGE SUMMARY MR#: [id number] Acct: [id number] Name: SANDRA RATLIFF Rep #: [id number] : 1980 34 From: Bernarda De La Vega Referring Dr.: Oef Jay DO Status: PRE RCR Eval Date: [...] However, she did make some improvements. Her colorer machine strength improved from 35 pounds to 70 pounds. She was reporting independence with act ivities of daily living at this time. The patient was last seen on January 11, 2015, no further appointments were indicated. At this time, the patient is discharged. Bernarda De La Vega, OTR/L T: NTS JOB: [id number] <Electronically signed by Bernarda De La Vega > 04/22/15 1057 CC: Signed 10-Feb-2015 Operative Report Result: Comments: See Note; NOTES: [facility] Medical Records Department [address] [place] [address] Operative Report 02/02/15 1305 MR#: [id number] Acct: [id number] Name: L[place] SANDRA LAMAS Rep #: [id number] : 1980 34 From: Vi Sanchez MD PCP: Michelle Reaves MD [place] [facility] [place] [facility] [place] of Operation Date of Procedure: 02/02/15 Pre-Operative Diagno sis: cholelithiasis, cholecystitis Post-Operative Diagnosis: same Surgery/Procedure Performed:: laparoscopic cholecystectomy with cholangiogram song writer: NOT,DEFINED Type of Anesthesia:: General Anesthesiologist: Aide [...] Lead Electrocardiogram Result: Comments: See Note; NOTES: [facility] Cardiovascular Services [address] [place], [place] [address] [address] 12 Lead EKG 02/02/15 1129 MR#: [id number] Acct: [id number] Name: ELISABETH RATLIFF Rep #: [id number] : 1980 34 From: Stephane Boyle MD Attending Dr: Vi Sanchez MD Status: [facility] Ordering Dr: Buzz Collins MD Date: 02/02/15 [place] [facility] Sex: F C Admitted: Test Whately son : PRE OP Blood Pressure : / mmHG Vent. Rate : 074 BPM Atrial Rate : 074 BPM P-R Int : 134 ms QRS Dur : 110 ms QT Int : 378 ms P-R-T Axes : 051 071 046 degrees QTc Int : 419 ms Normal sinus rhythm Normal ECG No previous ECGs available Confirmed by STEPHANE BOYLE MD ([id number]), graphics editor JASMIN RAMOS ([id number]) on 02/04/2015 10:20:06 AM Referred By: LALO Confirmed By:STEPHANE BOYLE MD 1020 Date Stephane Boyle MD CC: Michelle Reaves MD Date Dictated: 02/02/15 1129 Date Transcribed: 02/02/15 112 Independent Driver: Signed 04-Feb-2015 Emergency Department Summary Result: Comments: See Note; NOTES: [facility] Medical Records Department [address] [place] [address] Emergency Department Summary MR#: [id number] Acct: [id number] Name: SANDRA BELLE Rep #: [id number] : 1980 34 From: Naldo Schaeffer MD PCP: Michelle Reaves MD Status: [facility] ER DATE OF SERVICE: 02/01/2015 CHIEF COMPLAINT: [...] C: Michelle Reaves MD T: NTS JOB: [id number] 02/04/15 0552 <Electronically signed by Naldo Schaeffer MD> Date Naldo quintanilla MD CC: Michelle Reaves MD Date Dictated: 02/01/15536 Date Transcribed: 02/01/15536 Independent Driver: Signed 02-Feb-2015 Discharge Instruction Result: Comments: See Note; NOTES: [facility] Medical Records Department [address] [place] [address] Instructions for Home/Discharge Instructions 02/02/15 1305 MR#: [id number] ct: [id number] Name: SANDRA RATLIFF Rep #: [id number] : 1980 34 From: Vi Sanchez MD PCP: Michelle Reaves MD Status: REG [facility] [place] Diet: No Restrictions - drink plenty [...] for date and time, thank you 02/02/15 6489 <Electronically deangelo d by Vi Sanchez MD> Date Vi Sanchez MD CC: Michelle Reaves MD 02-Feb-2015 History and Physical Exam Result: Comments: See Note; NOTES: [facility] Medical Records Department [address] [place] [address] History and Physical 02/02/15 1155 MR#: [id number] Acct: [id number] Name: SANDRA RATLIFF Rep #: [id number] : 1980 34 From: Vi Sanchez MD PCP: Michelle Reaves MD Status: REG [facility] [place] Location: [place] [address] History and Physical - Blank Date of Admission: 02/02/15 P [facility] Provider: Dr. Reaves History of Present Illness: Sandra Ratliff is a 34 y/o WF who presents with severe right upper quadrant abdominal pain that awoke patient from sleep late Saturday night/alix y Saturday morning. She presented to ED. Was given [...] Morbid obesity, class III Past Surgical History: [place] teeth extraction C section 2010 Past injuries: [...] 77 / minute Resp: 18 per min oneida BP sittin / 83 General: well developed, [...] 01-Feb-2015 Gallbladder Result: Comments: See Note; NOTES: [facility] Imaging Services [address] [place] [address] Ultrasound Report MR#: [id number] Acct: [id number] Name: SANDRA RATLIFF Rep #: : 1980 F 34 From: Deonte Woods DO PCP: Michelle Reaves MD Status: REG CLI Study: Gallbladder Date of Exam: 02/01/15 Exam# [id number] Ordering Dr: Michelle Reaves MD STUDY: ABDOMINAL [...] Deonte Woods DO at 17:18 EDT Tel [phone], Service suppor t [phone], N.B. : The above information has been verbally conveyed by Deonte Woods DO to Michelle Reaves MD, Referring Physician, on 02/01/2015 17:24:35 (ET). CC: Michelle Reaves MD Independent Driver: Signed 01-Feb-2015 Discharge Instruction Result: Comments: See Note; NOTES: [facility] Medical Records Department [address] [place] [address] Discharge Instruction 02/01/15 0534 MR#: [id number] Acct: [id number] Name: SANDRA RATLIFF Rep #: [id number] : 1980 34 From: Naldo Schaeffer MD PCP: Michelle Reaves MD Status: REG ER ED Disposition - Plan for ED Patient: Disposition: Home or Assisted [place] [facility] Chief Complaint: Abd Pain Instructions: ED Abdominal [...] unex pected problems, contact your doctor. Call [facility] ([phone]) or report to the closest Emergency Room. Call 911 if necessary. 02/01/15 0535 <Electronically signed by Abdullahi Schaeffer MD> Date Naldo Schaeffer MD Cosigner Signature (If Indicated): Date CC: Michelle Reaves MD 18-Nov-2014 Initial Evaluation - OT Result: Comments: See Note; NOTES: [facility] [place] [address] [place] [address] Fax REHABILITATION SERV ICES INITIAL EVALUATION MR#: [id number] Acct: [id number] Name: SANDRA RATLIFF Rep #: [id number] : 1980 34 From: Bernarda De La Vega Referring DrMagdy: Ofe Jay DO Status: REG RCR Insu elly: [facility] Date: DATE OF SERVICE: PHYSICIAN: Ofe Jay [...] Right ulnar deviation 10, left 30. Right colorer machine strength is 35 pounds, left is 70 [...] The patient will demonstrate increase in right colorer machine strength to 65 pounds or greater to [...] demonstrate level of understanding. Bernarda De La Vega, OTR/L T: EMILY JOB: [id number] <Electronically signed by Bernarda De La Vega & #62; 11/18/14 0927 CC: Signed For Medicare only, by signing this I certify the plan of care. Physicians Signature Date 04-Nov-2014 Wrist min 3 Views Result: Comments: See Note; NOTES: [facility] Imaging Services [address] [place] [place] [address] Radiology Report MR#: [id number] Acct: [id number] Name: SANDRA RATLIFF Rep #: [id number] : 1980 F 34 From: Catrachito Wren MD PCP: Michelle Reaves MD Status: REG CLI Study: Wrist min 3 Views Date of Exam: 11/04/14 Exam# [id number] Ordering Dr: Ofe Jay DO STUDY: X-RA [...] MD at 14:57 EDT , Service support [phone], RAD/Wrist min 3 Views IMPRESSION: Normal x-ray examination of the wrist. Electronically Signed: Catrachito Wren MD at 14:57 EDT , Service support [phone], Fax CC: Ofe Jay DO; Michelle Reaves MD Independent Driver: Signed Immunization Name Dates Details Tdap (7 years and up) on: 30-Jun-2017 Comments: [facility] Family History Unknown Family Member Name Dates Details Brother 1 Comments: healthy Status: Active Father Comments: hx. [place] (age 50) CABGx3, heart disease Status: Active [...] use. 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 Aries [phone] Status: Active Exercise History: Exercises occasionally. Comments: get 4000 steps a day Status: Active Living Situation: Lives with spouse. Comments: spouse nayeli shah dtr Status: Active No Drug Use Status: Active Non Smoker/No Tobacco Use Status: Active Tobacco use: Never smoker. Status: Active Tobacco use: Never smoker. Status: Inactive Smoking Status Name Dates Details Never smoker Vital Signs Date Test Result Details 11-Apr-20187:07 Temperature 98 f Comments: Method: Temporal Pulse [...] kg/m2 Body Surface Area Calculated 2.55 m2 60-Rxy-49754:17 Temperature 97.9 f Comments: Method: Temporal Pulse [...] kg/m2 Body Surface Area Calculated 2.41 m2 :50 Temperature 97.4 f Comments: Method: Temporal Pulse [...] Details :43 Allergen, Rast Food Profile Comments: [facility] (refer to report for specific site)refer to [...] in this mix are: Blue mussel Fish [place] Shrimp Tuna EGG, WHOLE <0.10 kU/L (Normal) CHOCOLATE <0.10 kU/L (Normal) Comments: Performed at: [address] [id number] Director: Davide Jordan MD, Phone: [phone] BEEF <0.10 kU/L (Normal) PORK <0.10 kU/L (Normal) SOYBEAN <0.10 kU/L (Normal) PEANUT <0.10 kU/L (Normal) CORN <0.10 kU/L (Normal) WHEAT <0.10 kU/L (Normal) MILK (COW) <0.10 kU/L (Normal) :43 CBC-Complete Blood Cnt No Diff Comments: [facility] Eynnaoxzjx6774 [facility] [address] [place], [place], [address] ; fu 10-5 DB MPV 10.0 fL [...] 4.2-5.4 WBC 10.1 K/mm3 (Normal) Range: 4.4-11.0 :43 Comprehensive Metabolic Profil Comments: [facility] Lxvdhwsmmv1881 [facility] [address] [place], [place], [address] GAP 10 (Normal) Range: 5-15 CO2 27.0 [...] Comments: Please note revised GLUCOSE reference range xxgkuhtqe32/02/2018. :43 T4 Free Direct Comments: [facility] [address] [facility] [address] [place], [place], [address] T4 FREE DIRECT 1.04 ng/dL (Normal) Range: 0.76-1.46 :43 Thyroid Stim Hormone (TSH) Comments: [facility] [address] [place], [place], [address] TSH 2.11 {uIU/mL} (Normal) Range: 0.358-3.74 :43 Vitamin D,25 Hydroxy Comments: [facility] Tr[address] [place], [address] Vitamin D 25-OH 30.2 ng/mL (Normal) Range: 29.95-100.01 Comments: Vitamin D 25(OH) Status Range Deficiency <20 ng/mL (50nmol/L) Insuffciency 20 - 30 ng/mL (50 - 75 nmol/L) Sufficiency 30 - 100 ng/mL (75 - 250 nmol/L) Toxicity >100 ng/mL (>250 nmol/L) 6-Ieg-543965:16 NuSwab Vaginitis Plus Comments: PATIENT NOT FASTINGPERFORMED BY: LabCo[address] [id number] Information: SRC:CE (trich/BV/GC/linda W/O Herpes) (30168) Neisseria gonorrhoeae, Negative (Normal) ROBERT Chlamydia trachomatis, Negative (Normal) ROBERT Trich vag by ROBERT Negative (Normal) Mercedes glabrata, ROBERT Negative (Normal) Comments: This test was developed and its performance characteristics determinedby [employer]. It has not been cleared or approved [...] was developed and its performance characteristicsdetermined by [employer]. It has not been cleared or approvedby the Food and Drug Administration. The FDA has determinedthat such clearance or approval is not necessary. BVAB 2 Low - 0 {Score} (Normal) Atopobium vaginae Low - 0 {Score} (Normal) 2-Epm-704621:16 HPV automatic Comments: Source.............Cervix;EndocervixNo. of containers..01 ThinPrep VialPATIENT NOT FASTINGPERFORMED BY: WB [facility]Co[facility]120 [facility] [id number] BY: =G [facility]CoAl[facility] ([address]) [facility] [id number] Information: [id number] HPV, high-risk Negative Comments: This high-risk HPV [...] metaplasticcells (endocervical com ponent) are present.Z01.419Nathaly Reese Cook Relief (ASCP) 09-May-20178:25 URINE AUTUMN CULTURE-IDENTIFICATN Comments: PATIENT NOT FASTINGPERFORMED BY: CB [facility] Vwiabo0477 [place] [id number] (66944) Antimicrobial MIHEAD (Normal) Comments: S = Susceptible; [...] mL (Abnormal) Urine Final report Culture,Comprehensive (Abnormal) 09-May-20178:25 URINALYSIS (24713) Comments: PATIENT NOT FASTINGPERFORMED BY: CB [facility] Udavhz4468 [facility] [id number] Information: SRC:UC Microscopic Examination MICNIP (Normal) Comments: Microscopic not indicated and not performed. Nitrite, Urine Negative (Normal) Urobilinogen,Semi-Qn 0.2 mg/dL (Normal) Range: 0.2-1.0 Bilirubin Negative (Normal) Occult Blood Negative (Normal) Ketones Negative (Normal) Glucose Negative (Normal) Protein Negative (Normal) WBC Esterase Negative (Normal) Appearance Clear (Normal) Urine-Color Yellow (Normal) pH 5.5 (Normal) Range: 5.0-7.5 Specific [place] 1.022 (Normal) Range: 1.005-1.030 :35 CBC, Platelets & Auto Diff Comments: PATIENT NOT FASTINGPERFORMED BY: LabCoHunterdon Medical CenterAbuvju0868 [facility] [id number] Information: NURSE DRAW (85728) Immature Grans (Abs) 0.0 {x10E3/uL} (Normal) Range: [...] Panel, Comprehensive Comments: PATIENT NOT FASTINGPERFORMED BY: [employer] Olnvyf5576 [facility] [id number] (01447) ALT (SGPT) 18 [iU]/L (Normal) Range: 0-32 [...] (Abnormal) Range: 65-99 :35 T3, FREE (TRIDOTHYRONINE) (82277) Comments: PATIENT NOT FASTINGPERFORMED BY: [employer] Xzrlrq2364 AmosPlanviewNovant Health Clemmons Medical Center [id number] Triiodothyronine,Free,Serum 3.7 pg/mL (Normal) Range: 2.0-4.4 :35 T4, FREE (THYROXINE) (48435) Comments: PATIENT NOT FASTINGPERFORMED BY: [employer] GmbHHunterdon Medical CenterOkeuoa4733 [facility] [id number] T4,Free(Direct) 1.07 ng/dL (Normal) Range: 0.82-1.77 51-Trf-625329:15 HgA1C , Office (73532) HgA1C , Office 5.5 % (Normal) Range: 4.6 - 7.1 49-Sxc-452535:33 METABOLIC PANEL, Comments: PATIENT WAS FASTINGPERFORMED BY: LabChelsea [place] 290517 [facility] [id number] BY: LabPhraxisHunterdon Medical CenterRxlzku6415 [facility] [id number] COMPREHENSIVE (18824) ALT (SGPT) 21 [iU]/L (Normal) Range: 0-32 [...] Glucose, Serum 88 mg/dL (Normal) Range: 65-99 75-Ozz-323024:33 LIPOPROTEIN, BLD, BY NMR Comments: PATIENT WAS FASTINGPERFORMED BY: BN [facility] Xyhljckivw8757 [facility] [id number] BY: CB [facility] Efbgkr4592 [facility] [id number]; fu 8-1 db (49590) LP-IR Score 72 (Abnormal) Comments: INSULIN RESISTANCE MARKER <--Insulin Sensitive Insulin Resistant--> Percentile in Reference PopulationInsulin Resistance ScoreLP-IR Score Low 25th 50th 75th High <27 27 45 63 >63LP-IR Score is inaccurate if patient is non-fasting. .The LP-IR score is a laboratory developed i [facility] that has beenassociated with insulin resistance and [...] were developed and their performance characteristicsdetermined by [employer]. These assays have not been cleared by [...] 1600 - 2000 Very High > 2000 42-Cby-727552:33 CBC with auto diff Comments: PATIENT WAS FASTINGPERFORMED BY: BN [facility] [address] [id number] BY: CB [facility] Diquxq0089 [facility] [id number] (34197) Immature Grans (Abs) 0.0 {x10E3/uL} (Normal) Range: [...] 3.77-5.28 WBC 9.2 {x10E3/uL} (Normal) Range: 3.4-10.8 59-Cvz-149581:33 CALCIFIDIOL (79069) VIT D Comments: PATIENT WAS FASTINGPERFORMED BY: [employer] [address] [id number] BY: [employer] Rmcmww0004 Amos [facility] [id number] Vitamin D, 25-Hydroxy 51.8 ng/mL (Normal) Range: 30.0-100.0 Comments: Vitamin D deficiency has been defined by the [place] ofMedicine and an Endocrine Society practice guideline as alevel of serum 25-OH vitamin D less than 20 ng/mL (1,2).The Endocrine Society went on to further define vitamin Dinsufficiency as a level between 21 and 29 ng/mL (2).1. IOM ([place] of Medicine). 2010. Dietary reference intakes for calcium and D. [place]: The National Academies Press.2. Clari MF, Jose LEES, Ash NETTLES, et al. Evaluation, treatment, and prevention of vitamin D deficiency: an Endocrine Society clinical practice guideline. JCEM. 2010; 96(7):1911-30. :38 AUTUMN CULTURE-OTHER (61401) Comments: PATIENT NOT FASTINGPERFORMED BY: [employer] GmbHHunterdon Medical CenterXrnhzp3363[address] [place] [address] [id number] Information: SRC: Result 1 RRF (Normal) Comments: Routine respiratory juan Upper Respiratory Culture Final report (Normal) 32-Wqa-17621:32 AUTUMN CULTURE-OTHER (99246) Comments: PATIENT NOT FASTINGPERFORMED BY: [facility] Msbmdu6249 [address] [place] [place] [id number] Information: SRC:TH Result 1 RRF (Normal) Comments: Routine respiratory juan Upper Respiratory Culture Final report (Normal) 04-Foy-270519:35 Rapid Strep Test, Office (16589) Rapid Strep Test, Office Negative (Normal) 18-Osj-798298:39 CBC W/Diff, Automated Comments: [facility] Vdxpmosoig[address] [place], [address] Absolute Lymph 3.19 {X10_3/ul} (Normal) Range: 0.83-4.51 [...] 4.2-5.4 WBC 9.6 K/mm3 (Normal) Range: 4.4-11.0 :39 Prothrombin Time w/INR Comments: [facility] Uyblreztkh[address] [place], [place], [address] INR 1.0 (Normal) PROTIME 12.9 s (Normal) Range: 11.7-14.9 :58 CBC, Platelets & Auto Comments: PATIENT NOT FASTINGPERFORMED BY: [facility] Yawtnr1093 [facility] [id number] Information: 404633,V28580 Diff (46022) Immature Grans (Abs) 0.0 {x10E3/uL} (Normal) Range: [...] (Normal) Range: 3.4-10.8 :58 T3, FREE (TRIDOTHYRONINE) (57870) Comments: PATIENT NOT FASTINGPERFORMED BY: [facility]6370 [facility] [id number] Triiodothyronine,Free,Serum 3.2 pg/mL (Normal) Range: 2.0-4.4 :58 T4, FREE (THYROXINE) (40554) Comments: PATIENT NOT FASTINGPERFORMED BY: [address] [id number] T4,Free(Direct) 1.07 ng/dL (Normal) Range: 0.82-1.77 :58 TSH (29704) Comments: PATIENT NOT FASTINGPERFORMED BY: [facility]6370 [facility] [id number] TSH 2.830 {uIU/mL} (Normal) Range: 0.450-4.500 :58 HELICOBACTER PYLORI ANTIBODY Comments: PATIENT NOT FASTINGPERFORMED BY: [facility]6370 [facility] [id number] (42897) H. pylori, IgG Abs <0.9 U/mL (Normal) Range: 0.0-0.8 Comments: Negative <0.9 Indeterminate 0.9 - 1.0 Positive >1.0 :46 Testosterone, Free+Total Comments: PATIENT NOT FASTINGPERFORMED BY: [facility]1447 [facility] [id number] BY: [facility]6370 [facility] [id number] Information: [id number],[id number] LC/MS Free Testosterone(Direct) 1.5 pg/mL Range: 0.0-4.2 (Normal) Testosterone, Total, LC/MS 11.8 ng/dL Range: 10.0-55.0 (Normal) Comments: This test was developed and its performance characteristicsdetermined by [facility]. It has not been cleared or approvedby the Food and Drug Administration. Written Authorization WAR (Normal) Comments: PATIENT NOT FASTINGPERFORMED BY: [facility]1447 [facility] [id number] BY: [facility]6370 [facility] [id number] 610:46 Comments: Written Authorization Received.Authorization received from PHILLIP LEIGH LPN [id number] by Chichi Flores 4-Ojn-234219:46 CALCIFIDIOL (90510) VIT D 25 Comments: PATIENT NOT FASTINGPERFORMED BY: [facility]6370 [facility] [id number] Vitamin D, 25-Hydroxy 41.9 ng/mL (Normal) Range: 30.0-100.0 Comments: Vitamin D deficiency has been defined by the [place] ofMedicine and an Endocrine Society practice guideline as alevel of serum 25-OH vitamin D less than 20 ng/mL (1,2).The Endocrine Society went on to further define vitamin Dinsufficiency as a level between 21 and 29 ng/mL (2).1. IOM ([place] of Medicine). 2010. Dietary reference intakes for calcium and D. [place]: The National Academies Press.2. Clari MF, Jose [place], Ash NETTLES, et al. Evaluation, treatment, and prevention of vitamin D deficiency: an Endocrine Society clinical practice guideline. JCEM. 2010; 96(7):1911-30. 6-Lwl-813978:46 Metabolic Panel, Comments: PATIENT NOT FASTINGPERFORMED BY: [facility]6370 [facility] [id number] Information: [id number] Comprehensive (67296) ALT (SGPT) 21 [iU]/L (Normal) Range: 0-32 [...] Glucose, Serum 81 mg/dL (Normal) Range: 65-99 53-Lum-267462:16 Cortisol,Urinary Free 24- Comments: PATIENT NOT FASTINGPERFORMED BY: Lab[address] [id number] Information: [id number] VOLUME 1800; fu 8-18 Hour Urine (01019) Cortisol,F,ug/24hr,U 18 {ug/24_hr} (Normal) Range: 0-50 Comments: This test was developed and its performance characteristicsdetermined by [employer]. It has not been cleared or approvedby the Food and Drug Administration. Cortisol,F,ug/L,U 10 ug/L (Normal) 0-Yzr-093941:46 HGB A1C (96322) Comments: PATIENT NOT FASTINGPERFORMED BY: [facility] [place]6370 [facility] [id number] Hemoglobin A1c 5.5 % (Normal) Range: 4.8-5.6 Comments: . Pre-diabetes: 5.7 - 6.4 Diabetes: >6.4 Glycemic control for adults with diabetes: <7.0 46-Pko-708079:13 SEROTONIN (14079) Comments: PATIENT NOT FASTINGPERFORMED BY: [address] [id number] Information: [id number] Serotonin, Serum 10 ng/mL (Normal) Range: 0-420 :42 TSH (THYROID STIMULATING Comments: PATIENT NOT FASTINGPERFORMED BY: [facility]6370 [facility] [id number] HORMONE) (25076) TSH 1.560 {uIU/mL} (Normal) Range: 0.450-4.500 :42 CBC, PLATELETS & MANUAL Comments: PATIENT NOT FASTINGPERFORMED BY: [facility]6370 [facility] [id number] Information: [id number] DIFF (05485) Immature Grans (Abs) 0.0 {x10E3/uL} (Normal) Range: [...] 3.77-5.28 WBC 8.2 {x10E3/uL} (Normal) Range: 3.4-10.8 93-Vig-83329:42 ESR-F (SED RATE ERYTHROCYTE - Comments: PATIENT NOT FASTINGPERFORMED BY: [facility]6370 [facility] [id number] FEMALE) (26557) Sedimentation Rate-Westergren 25 mm/h (Normal) Range: 0-32 92-Cqf-13968:42 PREALBUMIN (59885) Comments: PATIENT NOT FASTINGPERFORMED BY: [facility]6370 [facility] [id number] Prealbumin 28 mg/dL (Normal) Range: 9-31 Comments: [...] - 36 >70 years 9 - 32 48-Qhv-432110:45 Urinalysis, Complete Comments: Order Date: 11/17/15How was Urine Obtained? 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 [place], [place], [address] MUCUS, URINE 0 SEEN {/hpf} (Normal) BACTERIA [...] CLARITY Sl. Cloudy (Normal) COLOR Yellow (Normal) 60-Pkp-49278:08 CBC W/Diff, Automated Comments: [facility] Nstfjuxqfq40[address] [place], [place], [address] Absolute Lymph 1.81 {X10_3/ul} (Normal) Range: 0.83-4.51 [...] 4.2-5.4 WBC 14.3 K/mm3 (Abnormal) Range: 4.4-11.0 :08 Comprehensive Metabolic Profil Comments: [facility] Aipaiiobei[address] [place], [place], [address] GAP 6 (Normal) Range: 5-15 CO2 27.0 [...] mg/dL (Normal) Range: 70-110 :08 Lipase Comments: [facility] Vb[address]qtlzlm[address] [place], [place], [address] LIPASE 160 U/L (Normal) Range: 73-393 :08 ,Serum,hCG Quali. Comments: [facility] Fzgxgeqmrg[address] [place], [place], [address] HCGSQUAL NEGATIVE {Negative} Range: 0-9 Nonpreg (Normal) HCG Qual triggr < 1 m[iU]/mL (Normal) 09-Nov-20150:00 LIPOMA (SOFT TISSUE) See Note (Normal) Comments: [facility] Nmpnavgltp[address] [place], [place], [address] Comments: Patient: SANDRA RATLIFF : 1980 (35/F) Acct Num: [id number] Phys: Yohan HARGROVE,Vi Unit Num: [id number] Loc: LAB[facility] Specimen: [id number] Received: 11/09/151842 Spec Type: LIPOMA TISSUES TISSUES: GROSS DESCRIPTION Received is one container labeled with the patient name and designated abdominal lesion. The specimen consists of multiple irregular fragm ents of yellow fatty tissue that in aggregate measure 4 x 3 x 1 cm. Sales Account Leader portions are submitted in one cassette. / AM:shubham 11/10/15 TC:1 CPT:41112 HEADER OPERATION: Excision upper left a bdominal wall lesion PRE-OP DIAGNOSIS: Upper left abdominal wall lesion TISSUE SUBMITTED: Lipoma of abdominal wall MICROSCOPIC DESCRIPTION Slides are reviewed. MICROSCOPIC DIAGNOSIS Lipo ma of abdominal wall, excision: Mature adipose tissue, consistent with lipoma. SJ:shubham 11/11/15 Signed Yimi Zapata 11/11/15 <signature on file> :50 Culture, Blood (WB) Comments: [facility] Pnnftjixru8964 [facility]. [place], [place], [address] CUB See Note (Normal) Comments: BCNo growth in 5 days. 8-Uxz-393677:50 Culture, Blood (WB) Comments: [facility] Ty[address]zooh[address] [facility] [address] [place], [place], [address] CUB See Note (Normal) Comments: BCNo growth in 5 days. 17-Wyd-47251:08 Urinalysis, Office (25354) UA - LEUKOCYTE ESTERASE Negative (Normal) UA - NITRITE Negative (Normal) URINE UROBILINGN DWAYNE TIMED Normal mg/dL (Normal) UA - PROTEIN 30 mg/dL (Normal) UA - PH 6 (Abnormal) UA - BLOOD Negative (Normal) UA - SPECIFIC GRAVITY 1.020 (Normal) UA - KETONES 15 ug/dL (Abnormal) UA - BILIRUBIN Moderate (Normal) UA - GLUCOSE Negative (Normal) 49-Bda-917110:10 Microscopic Examination Comments: PATIENT NOT FASTINGPERFORMED BY: LabCoHunterdon Medical CenterBagmbj2718 [facility] [id number] Bacteria Few (Normal) Mucus Threads Present (Normal) Cast Type Hyaline casts (Normal) Casts Present {/lpf} (Abnormal) Epithelial Cells (non renal) 0-10 {/hpf} (Normal) Range: 0 - 10 RBC 0-2 {/hpf} (Normal) Range: 0 - 2 WBC 6-10 {/hpf} (Abnormal) Range: 0 - 5 49-Puj-860268:51 ANCA Panel Comments: PATIENT NOT FASTINGPERFORMED BY: [employer] [address] [id number] BY: [employer] Iquwrv5113 [facility] [id number] Information: [id number] Atypical pANCA <1:20 {titer} Comments: The atypical [...] follow up testing ofpositive sera with both SD-3 and MPO-ANCA enzyme immunoassays. Asmany as 5% serum samp les are positive only by EIA.Ref. AM J Clin Pathol 1999;111:507-513. Cytoplasmic (C-ANCA) <1:20 {titer} (Normal) Antiproteinase 3 (SD-3) Abs <3.5 U/mL Range: 0.0-3.5 (Normal) Antimyeloperoxidase (MPO) <9.0 U/mL Range: 0.0-9.0 Abs (Normal) Written Authorization WAR (Normal) Comments: PATIENT NOT FASTINGPERFORMED BY: [employer] [id number] BY: [employer] GmbHHunterdon Medical CenterYcqpid9828 [facility] [id number] 612:51 Comments: Written Authorization Received.Authorization received from ERIKA RUANO LPN 05-28-1351Sgwuvn by Shalini Ramos 58-Iqd-256085:51 CBC WITH MANUAL DIFF Comments: PATIENT NOT FASTINGPERFORMED BY: [facility]6370 [facility] [id number] Information: [id number] (47907) Immature Grans (Abs) 0.0 {x10E3/uL} (Normal) Range: [...] 3.77-5.28 WBC 7.8 {x10E3/uL} (Normal) Range: 3.4-10.8 28-Czo-529510:10 URINE AUTUMN CULTURE-IDENTIFICATN Comments: PATIENT NOT FASTINGPERFORMED BY: [facility] [place]6370 [facility] [id number] (34605) Result 1 NG36 (Normal) Comments: No growth in 36 - 48 hours. Urine Culture,Comprehensive Final report (Normal) 14-Adf-035217:51 COMPLEMENT C4 (03440) Comments: PATIENT NOT FASTINGPERFORMED BY: [place] 9083370 [facility] [id number] Complement C4, Serum 50 mg/dL (Abnormal) Range: 14-44 26-Eaf-909575:51 COMPLEMENT C3 (94408) Comments: PATIENT NOT FASTINGPERFORMED BY: [address] [id number] Complement C3, Serum 204 mg/dL (Abnormal) Range: 82-167 12-Tux-422665:58 COMPLEMENT, TOTAL (CH50) Comments: PATIENT NOT FASTINGPERFORMED BY: [address] [id number] Information: [id number] (57828) Complement, Total (CH50) >60 U/mL (Abnormal) Range: 42-60 Comments: Please note reference interval change 65-Wdo-919217:10 URINALYSIS (52220) Comments: PATIENT NOT FASTINGPERFORMED BY: [address] [id number] Information: [id number] Microscopic Examination See below: (Normal) Comments: Microscopic was indicated and was performed. Appearance Cloudy (Abnormal) Urine-Color Mcd[place] (Normal) Comments: Unable to read or assay due to color interference. Specific [place] 1.023 (Normal) Range: 1.005-1.030 58-Zon-004241:51 HCG Qualitative, Serum (98116) Comments: PATIENT NOT FASTINGPERFORMED BY: [place] 9083370 [facility] [id number] hCG,Beta Subunit,Qual,Serum Negative m[iU]/mL (Normal) 96-Aeo-539778:51 serum free light chains Comments: PATIENT NOT FASTINGPERFORMED BY: [address] [id number] (61363) Musella/Lambda Ratio,S 1.97 (Abnormal) Range: 0.26-1.65 Free Lambda Lt Chains,S 16.13 mg/L (Normal) Range: 5.71-26.30 Free Musella Lt Chains,S 31.85 mg/L (Abnormal) Range: 3.30-19.40 :51 urine immunofixation (02655) Comments: PATIENT NOT FASTINGPERFORMED BY: mymxlog [facility] [id number] IRWIN Interpretation:U UPEIP (Normal) Comments: No monoclonality detected. :51 serum immunofixation (19920) Comments: PATIENT NOT FASTINGPERFORMED BY: mymxlog [facility] [id number] Immunoglobulin M, Qn, Serum 68 mg/dL (Normal) Range: 40-230 Immunoglobulin A, Qn, Serum 192 mg/dL (Normal) Range: 91-414 Immunoglobulin G, Qn, Serum 1229 mg/dL (Normal) Range: 700-1600 Immunofixation Result, Serum IFENOR (Normal) Comments: An apparent normal immunofixation pattern. :51 UPEP (32421) Comments: PATIENT NOT FASTINGPERFORMED BY: Acs[employer] [facility] [id number] Please note: SPRCS (Normal) Comments: Protein electrophoresis scan will follow via computer, mail, orcourier delivery. M-Rene, % Not Observed % (Normal) Gamma Globulin, U 12.1 % (Normal) Beta Globulin, U 23.3 % (Normal) Ntzbh-2-Cawmlyhw, U 28.7 % (Normal) Qwrzt-9-Mtbkpsoi, U 4.1 % (Normal) Albumin, U 31.8 % (Normal) Protein,Total,Urine 42.0 mg/dL (Abnormal) Range: 0.0-15.0 :51 P-ANCA & C-ANCA (ANCA Comments: PATIENT NOT FASTINGPERFORMED BY: [employer]70 [facility] [id number] PROFILE) 93853 x2 and 63960 x2 Mitochondrial (M2) Antibody <20.0 {Units} (Normal) Range: 0.0-20.0 Comments: Negative 0.0 - 20.0 Equivocal 20.1 - 24.9 Positive >24.9 . Mitochondrial (M2) Antibodies are found in 90-96% of patients with primary biliary cirrhosis. 04-Yrw-968164:51 C-REACT PROT HIGH SENS(hsCRP) Comments: PATIENT NOT FASTINGPERFORMED BY: [employer] [place]6370 [facility] [id number] (63709) C-Reactive Protein, Cardiac 94.10 mg/L (Abnormal) Range: 0.00-3.00 Comments: Relative Risk for Future Cardiovascular Event Low <1.00 Average 1.00 - 3.00 High >3.00 65-Oau-827346:32 DNA ANTIBODY-NATV/DBL ST (89265) Comments: PATIENT NOT FASTINGPERFORMED BY: [facility]6370 [facility] [id number] test code 625722 Anti-DNA (DS) Ab Qn <1 {IU/mL} (Normal) Range: 0-9 Comments: Negative <5 Equivocal 5 - 9 Positive >9 71-Vka-429811:32 MICROALBUMIN: CREATININE Comments: PATIENT NOT FASTINGPERFORMED BY: [facility]6370 [facility] [id number] Information: [id number] RATIO (41575) AND (88076) Microalb/Creat Ratio 28.7 {mg/g_creat} (Normal) Range: 0.0-30.0 Microalbumin, Urine 76.1 ug/mL (Abnormal) Range: 0.0-17.0 Creatinine, Urine 265.3 mg/dL (Normal) Range: 16.0-327.0 06-Cnc-963394:32 RPR (RAPID PLASMA REAGIN) Comments: PATIENT NOT FASTINGPERFORMED BY: [facility]6370 [facility] [id number] (66396) RPR Non Reactive (Normal) 12-Evq-958261:26 Systemic Lupus Profile A Comments: PATIENT NOT FASTINGPERFORMED BY: [facility]6370 [facility] [id number] Information: [id number] Anti-DNA (DS) Ab Qn <1 {IU/mL} Range: 0-9 (Normal) Comments: Negative <5 Equivocal 5 - 9 Positive >9 Sjogren's Anti-SS-B 0.4 {AI} (Normal) Range: 0.0-0.9 Sjogren's Anti-SS-A <0.2 {AI} (Normal) Range: 0.0-0.9 Antichromatin Antibodies 0.3 {AI} (Normal) Range: 0.0-0.9 RA Latex Turbid. 13.0 {IU/mL} Range: 0.0-13.9 (Normal) Tariq Antibodies <0.2 {AI} (Normal) Range: 0.0-0.9 SHEETER HELPER Antibodies 2.7 {AI} Range: 0.0-0.9 (Abnormal) Written Authorization WAR (Normal) Comments: PATIENT NOT FASTINGPERFORMED BY: [employer] Xlxwxj8946 [facility] [id number] 0:26 Comments: Written Authorization Received.Authorization received from MICHELLE REAVES MD [phone] by Devi Biswas 94-Xgc-468583:26 EB ANTIBODY VIRAL CAPSID Comments: PATIENT NOT FASTINGPERFORMED BY: [employer] GmbHHunterdon Medical CenterAidcrs9452 [facility] [id number] (83891) X2 Interpretation: SPRCS (Normal) Comments: EBV Interpretation [...] <36.0 Equivocal 36.0 - 43.9 Positive >43.9 19-Mkf-319505:26 CALCIFIDIOL (63081) VIT D 25 Comments: PATIENT NOT FASTINGPERFORMED BY: [employer] GmbHRoosevelt General HospitalXzgxbh6406 [facility] [id number] Vitamin D, 25-Hydroxy 48.4 ng/mL (Normal) Range: 30.0-100.0 Comments: Vitamin D deficiency has been defined by the [place] ofSheltering Arms Hospitalcine and an Endocrine Society practice guideline as alevel of serum 25-OH vitamin D less than 20 ng/mL (1,2).The Endocrine Society went on to further define vitamin Dinsufficiency as a level between 21 and 29 ng/mL (2).1. IOM ([place] of Medicine). 2010. Dietary reference intakes for calcium and D. [place]: The National Academies Press.2. Clari MF, Jose NC, Ash NETTLES, et al. Evaluation, treatment, and prevention of vitamin D deficiency: an Endocrine Society clinical practice guideline. JCEM. 2010; 96(7):1911-30. 48-Kme-869220:26 Folate (34256) Comments: PATIENT NOT FASTINGPERFORMED BY: DuckDuckGoParkland Health CenterDwqlfu6560 [facility] [id number] Folate (Folic Acid), Serum 8.4 ng/mL (Normal) Comments: A serum folate concentration of less than 3.1 ng/mL isconsidered to represent clinical deficiency. 28-Psx-954872:26 VITAMIN B-12 (CYANOCOBALAMIN) Comments: PATIENT NOT FASTINGPERFORMED BY: [employer] Jdiahd1582 [facility] [id number] (42569) Vitamin B12 280 pg/mL (Normal) Range: 211-946 85-Pkw-512446:26 TSH (12510) Comments: PATIENT NOT FASTINGPERFORMED BY: [employer] Repmhy3484 [facility] [id number] TSH 1.730 {uIU/mL} (Normal) Range: 0.450-4.500 29-Joy-816843:26 SED RATE ERYTHROCYTE (75553) Comments: PATIENT NOT FASTINGPERFORMED BY: LabCoHunterdon Medical CenterXemxcn1898 [facility] [id number] Sedimentation Rate-Westergren 48 mm/h (Abnormal) Range: 0-32 20-Rtg-302884:26 RHEUMATOID FACTOR-QUANT (41356) Comments: PATIENT NOT FASTINGPERFORMED BY: [facility] Bunity8500 [facility] [id number] RA Latex Turbid. 13.3 {IU/mL} (Normal) Range: 0.0-13.9 84-Pyr-817496:26 METABOLIC PANEL, Comments: PATIENT NOT FASTINGPERFORMED BY: LabCoHunterdon Medical CenterKqgtmy8110 [facility] [id number] Information: [id number] COMPREHENSIVE (51246) ALT (SGPT) 21 [iU]/L (Normal) Range: 0-32 [...] Glucose, Serum 101 mg/dL (Abnormal) Range: 65-99 53-Cmw-071504:26 C-REACTIVE PROTEIN (29956) Comments: PATIENT NOT FASTINGPERFORMED BY: [employer] Mdjmlb8587 [facility] [id number] C-Reactive Protein, Quant 157.4 mg/L (Abnormal) Range: 0.0-4.9 :26 CBC (AUTO) (95432) Comments: PATIENT NOT FASTINGPERFORMED BY: [employer] Mfovnf7046 [facility] [id number] Platelets 275 {x10E3/uL} (Normal) Range: 150-379 RDW 13.4 % (Normal) Range: 12.3-15.4 MCHC 33.9 g/dL (Normal) Range: 31.5-35.7 MCH 29.6 pg (Normal) Range: 26.6-33.0 MCV 87 fL (Normal) Range: 79-97 Hematocrit 39.2 % (Normal) Range: 34.0-46.6 Hemoglobin 13.3 g/dL (Normal) Range: 11.1-15.9 RBC 4.50 {x10E6/uL} (Normal) Range: 3.77-5.28 WBC 13.8 {x10E3/uL} (Abnormal) Range: 3.4-10.8 :26 KWAN (ANTINUCLEAR ANTIBODY) Comments: PATIENT NOT FASTINGPERFORMED BY: [employer] Mhuuag5211 [facility] [id number] (72051) KWAN Direct Positive (Abnormal) 75-Psb-371406:21 Sed Rate Erythrocyte (79364) Comments: PATIENT NOT FASTINGPERFORMED BY: [employer] Djgdqa6417 [facility] [id number] Sedimentation Rate-Westergren 20 mm/h (Normal) Range: 0-32 44-Sna-600244:21 Metabolic Panel, Comprehensive Comments: copy to Dr. sanchez; PATIENT NOT FASTINGPERFORMED BY: [employer] Yrjvuv0428 [employer] [facility]ArtCritical [facility] hospital [id number] (37089) ALT (SGPT) 23 [iU]/L (Normal) Range: 0-32 [...] Glucose, Serum 112 mg/dL (Abnormal) Range: 65-99 78-Ixr-227607:21 CBC, Platelets & Auto Comments: PATIENT NOT FASTINGPERFORMED BY: [employer] Hokxvy2512 [facility] [id number] Information: [id number] Diff (21476) Immature Grans (Abs) 0.0 {x10E3/uL} (Normal) Range: [...] 3.77-5.28 WBC 11.0 {x10E3/uL} (Abnormal) Range: 3.4-10.8 84-Ndt-352964:21 Lipase (75380) Comments: PATIENT NOT FASTINGPERFORMED BY: LabCoHunterdon Medical CenterGteczv3396 [facility] [id number] Lipase, Serum 33 U/L (Normal) Range: 0-59 19-Sfa-673382:23 GALLBLADDER See Note (Normal) Comments: Test performed at:[facility] [address] [place], [place] [id number] Comments: Patient: SANDRA RATLIFF : 1980 (34/F) Acct Num: [id number] Phys: Vi Sanchez MD Unit Num: [id number] [place] [facility] [place]: [id number] Received: 02/02/151541 Spec Type: GALL BLADDE TISSUES [...] average thickness andis free of mass lesions. Sales Account Leader sections of the gallbladder and the cystic duct are submitted in one cassette. / AM: 02/03/15 TC:3 CPT: 8 8304 HEADER OPERATION: Lap, cholecystectomy PRE-OP DIAGNOSIS: Calculus of gallbladder with acute cholecystitis TISSUE SUBMITTED: Gallbladder MICROSCOPIC DESCRIPTION Slides are reviewed. MICROSCOPIC DIAGNOSIS Gallbladder, cholecystectomy: Chronic cholecystitis and cholelithiasis. AM: 02/04/15 Signed Tr [facility] 02/04/15 <signature on file> 75-Not-683007:10 ,Urine Comments: Test performed at:[facility] [address] [place], [place] [address] ; ordered by another doctor HCGUQUAL Negative {Negative} (Normal) Comments: Very dilute urine specimens, as indicated by a low specificgravity, may not contain client service representative levels of hCG.If is still suspected, a first morning urinespecimen should be collected 48 hours later and tested. 29-Ytm-90327:45 Basic Metabolic Profile (BMP) Comments: Test performed at:[facility] [address] [place] [address] GAP 10 (Normal) Range: 5-15 CO2 26.0 [...] Comments: Please note revised CREATININE reference range woplxmugp53/22/2015. BUN 13 mg/dL (Normal) Range: 7-18 GLU 112 mg/dL (Abnormal) Range: 70-110 Comments: Fasting Glucose result from 110 to <126 mg/dLsuggests IMPAIRED HOMEOSTASIS per A.D.A. criteria. 30-Pzl-40013:45 CBC W/Diff, Automated Comments: Test performed at:[facility] [address] [place], [place] [address] Absolute Lymph 4.26 {X10_3/ul} (Normal) Range: 0.83-4.51 [...] Range: 4.4-11.0 :45 Lipase Comments: Test performed at:[facility] [address] [place] [address] LIPASE 136 U/L (Normal) Range: 73-393 :45 Liver Profile Comments: Test performed at:[address] [place] [address] D BILI < 0.05 mg/dL (Normal) Range: [...] 02/01/15How was Urine Obtained? CLEAN CATCHTest performed at:[facility] [address] [place] [address] HCGUQUAL Negative {Negative} (Normal) Comments: Very dilute urine specimens, as indicated by a low specificgravity, may not contain client service representative levels of hCG.If is still suspected, a first morning urinespecimen should be collected 48 hours later and tested. :45 Urinalysis, Complete Comments: Order Date: 02/01/15How was Urine Obtained? CLEAN CATCHTest performed at:[facility] [address] [place] [address] MUCUS, URINE 0 SEEN {/hpf} (Normal) BACTERIA [...] (Normal) CLARITY Clear (Normal) COLOR Yellow (Normal) :45 CALCIFIDIOL (25855) VIT D 25 Comments: PATIENT NOT FASTINGPERFORMED BY: mymxlog [facility] [id number] Vitamin D, 25-Hydroxy 42.1 ng/mL (Normal) Range: 30.0-100.0 Comments: Vitamin D deficiency has been defined by the [place] ofMedicine and an Endocrine Society practice guideline as alevel of serum 25-OH vitamin D less than 20 ng/mL (1,2).The Endocrine Society went on to further define vitamin Dinsufficiency as a level between 21 and 29 ng/mL (2).1. IOM ([place] of Medicine). 2010. Dietary reference intakes for calcium and D. [place]: The National Academies Press.2. Clari MF, oJse [place], Ash NETTLES, et al. Evaluation, treatment, and prevention of vitamin D deficiency: an Endocrine Society clinical practice guideline. JCEM. 2010; 96(7):1911-30. :45 Metabolic Panel, Basic Comments: PATIENT NOT FASTINGPERFORMED BY: [employer] [facility] Zkdqdw9871 [employer] [facility] [id number] Information: [id number] (97100) Calcium, Serum 9.6 mg/dL (Normal) Range: 8.7-10.2 [...] Glucose, Serum 100 mg/dL (Abnormal) Range: 65-99 06-Tns-852095:50 Rapid Flu (94204 x 2) Influenza A Ag neg (Normal) :29 LIPID PANEL (56108) Comments: PATIENT WAS FASTINGPERFORMED BY: [employer] Xaspri9163 [facility] [id number] Information: [id number] LDL/HDL Ratio 2.6 {ratio_units} (Normal) Range: 0.0-3.2 [...] Metabolic Panel, Comments: PATIENT NOT FASTINGPERFORMED BY: DataupiaRoosevelt General HospitalHteqwm8053 [facility] [id number] Information: [id number] Comprehensive (99237) ALT (SGPT) 25 [iU]/L (Normal) Range: 0-32 [...] Glucose, Serum 87 mg/dL (Normal) Range: 65-99 12-Jan-20139:50 CALCIFEDIOL (62527) Comments: PATIENT NOT FASTINGPERFORMED BY: LabCoHunterdon Medical CenterDhofyh8292 [facility] [id number] Vitamin D, 25-Hydroxy 42.6 ng/mL (Normal) Range: 30.0-100.0 Comments: Vitamin D deficiency has been defined by the [place] ofMedicine and an Endocrine Society practice guideline as alevel of serum 25-OH vitamin D less than 20 ng/mL (1,2).The Endocrine Society went on to further define vitamin Dinsufficiency as a level between 21 and 29 ng/mL (2).1. IOM ([place] of Medicine). 2010. Dietary reference intakes for calcium and D. [place]: The National Academies Press.2. Clari MF, Jose NC, Ash NETTLES, et al. Evaluation, treatment, and prevention of vitamin D deficiency: an Endocrine Society clinical practice guideline. JCEM. 2010; 96(7):1911-30. :08 CATU tDOP 108 ug/L (Normal) tDOP24 255 {ug/24_hr} (Normal) Range: 0-510 Comments: TESTING PERFORMED AT [facility]. ORIGINAL REPORT ON FILE IN LAB CONTAINS ADDITIONAL TEST SITE INFORMATION. tEPIN24 < 2 {ug/24_hr} (Normal) Range: 0-20 tNORE 16 ug/L (Normal) tNORE24 38 {ug/24_hr} (Normal) Range: 0-135 tEPIN < 1 ug/L (Normal) :08 KWESI 20.48 ug/dL (Normal) Range: 3.09-22.40 Comments: Adult (AM) 4.30 - 22.40 ug/dL Adult (PM) 3.09 - 16.66 ug/dL :08 DHEA 26.2 ug/dL (Abnormal) Range: 98.8-340.0 81-Fqa-089899:08 METAU tMETA 24 ug/L (Normal) tMETA24 57 {ug/24_hr} (Normal) Range: 45-290 Comments: (Hypertensive) >17 years 11 months: 35 - 460 . Please note reference interval change tNORM24 219 {ug/24_hr} (Normal) Range: 82-500 Comments: (Hypertensive) >17 years 11 months: 110 - 1050 tNORM 93 ug/L (Normal) 20-Ebj-450556:08 MISC . (Normal) Comments: TEST RESULT LPPPEQ93-Kwtrmgsfptpuzgcneav, MS 17 [place] Pregnenolone, Serum MS < 10 ng/dL Reference Range: Adults: 53 - 357 [facility] ORIGINAL REPORT ON FILE IN LAB CONTAINS ADDITIONAL TEST SITE INFORMATION. :08 PROL 10.2 ng/mL (Normal) Range: 4.8-23.3 :08 TESTOF <0.2 pg/mL (Normal) Range: 0.0-2.2 Comments: Performed at: - [address] [id number] Director: Davide Jordan MD, Phone: [phone] at: - LabCoTammy [place] [address]Wpk Director: Andra Reyes MD, Phone: [phone] 31-Kko-152349:08 VMA tVMA24 3.1 {mg/24_hr} (Normal) Range: 0.0-7.5 [...] 7-18 GLU 92 mg/dL (Normal) Range: 70-110 41-Kjc-295630:56 VIT D,25 28506 33.7 ng/mL (Normal) Range: 30.0-100.0 Comments: Vitamin D deficiency has been defined by the [place] ofShel[facility] Arms Hospitalcine and an Endocrine Society practice guideline as alevel of serum 25-OH vitamin D less than 20 ng/mL (1,2).The Endocrine Society went on to further define vitamin Dinsufficiency as a level between 21 and 29 ng/mL (2).1. IOM ([place] of Medicine). 2011. Dietary reference intakes for calcium and D. [place]: The National Academies Press.2. Clari MF, Jose NC, Ash NETTLES, et al. Evaluation, treatment, and prevention of vitamin D deficiency: an Endocrine Society clinical practice guideline. JCEM. 2010; 96(7): 1911-30.Performed at: [facility] [address] [id number] Director: Andra Reyes MD, Phone: [phone] 51-Tqd-661450:57 MICROALB:CRE UR MALB:CREAT 25.7 {mg/g_CRE} (Normal) MICROALBUMIN,UR 40.9 mg/L (Normal) UR CREAT 159.1 mg/dL (Normal) 3-Idf-553796:09 MYOCARD PERF STRESS/REST MULT Radiology Report See Note (Normal) Comments: EXERCISE MYOCARDIAL PERFUSION SCAN AHHNVRNZjorio-wjds-xax with a history of hypertension and abnormal EKG. NNRLENGMB43 mCi of Sestamibi was injected at rest. [...] ejection fraction. Dictated on 03/09/11 1153 by Tamar HARGROVE,CyrilTranscribed on 03/09/11 1209 by Kaylan CALVIN gn by Tamar HARGROVE,Stephane on 03/10/11 1446 Sign by: Tamar HARGROVE,[place] 2-Wzn-592251: VIT D,25 22377 28.7 ng/mL Range: 32.0-100.0 10 (Abnormal) Comments: Recent studies consider the lower limit of 32.0 ng/mL to guy threshold for optimal health.Rakan BOWENS. J Nutr. 2004;135(2):317- 22.Performed at: [place] [address]Lab Director: Andra Reyes MD, Phone: [phone] TSH 2.62 {uIU/mL} Range: 0.358-3.74 :41 (Normal) [...] 7-18 GLU 78 mg/dL (Normal) Range: 70-110 71-Tck-67954:57 CBCD,SMEAR DIFF RED CELL MORPH SeeNote {NORMAL} [...] BETA STREPTOCOCCUS :28 Rapid Strep Test, Office (11878) Rapid Strep Test, Office Negative (Normal) 4-Jng-928593:39 HCG QUANT. 95761 m[iU]/mL (Abnormal) 1-Wkc-826015:39 ,SERUM HCGSQUAL SeeNote m[iU]/mL (Normal) Range: 0-9 [...] hypertension : Follow up in 1 week mec Indication: Elevated blood-pressure reading without diagnosis of hypertension Abnormal EKG : Follow up in 2 weeks with MEC or DB Indication: Abnormal EKG Palpitations : *palpitation discusssion Indication: Palpitations Elevated blood-pressure reading without diagnosis of hypertension : BP MONITORING - SELF Indication: Elevated blood-pressure reading without diagnosis of hypertension Planned Observations Food Allergy Profile (69181)Indication: Allergic to food (Renamed from Food allergy) On: :28 Request T4, FREE (THYROXINE) (13117)Indication: Abnormal thyroid blood test On: :22 Request TSH (56353)Indication: Abnormal thyroid blood test On: :22 Request CALCIFIDIOL (05785) VIT D 25Indication: Vitamin D deficiency, unspecified On: :22 Request CBC (Auto) (76195)Indication: KWAN positive On: :21 Request Metabolic Panel, Comprehensive (42167)Indication: KWAN positive On: :21 Request Thin prep Pap (80606) (no STD testing)Indication: Well woman exam (Renamed from Encounter for well woman exam) On: :13 Request PT (Prothrobim Time) (91596)Indication: Preop examination On: 93-Cof-661545:36 Request CBC WITH MANUAL DIFF (41238)Indication: Preop examination On: 89-Kcs-605897:36 Request T4, FREE (THYROXINE) (88997)Indication: Abnormal thyroid blood test On: : Request TSH (71647)Indication: Abnormal thyroid blood test On: : Request CALCIFIDIOL (43190) VIT D 25Indication: Vitamin D deficiency, unspecified On: : Request MICROALBUMIN: CREATININE RATIO (43898) AND (04255)Indication: Proteinuria On: Request METABOLIC PANEL, COMPREHENSIVE (18374)Indication: Antiphospholipid syndrome On: Request CBC with auto diff (53046)Indication: Antiphospholipid syndrome On: Request LIPOPROTEIN, BLD, BY NMR (82231)Indication: Hyperlipidemia, unspecified hyperlipidemia type On: : Request MICROALBUMIN: CREATININE RATIO (43809) AND (56860)Indication: Proteinuria On: 47-Xea-317705:10 Request LEUKOCYTE COUNT, FECAL (52020)Indication: Abdominal pain, acute On: 08-Ssv-333613:10 Request OVA & PARASITE DIR SMEAR (37023)Indication: Abdominal pain, acute On: 69-Fsj-584383:10 Request Clostridium difficile Toxin A+B, EIA (81577)Indication: Abdominal pain, acute On: 09-Pup-076215:10 Request AUTUMN CULTURE-STOOL (86797)Indication: Abdominal pain, acute On: 53-Yzs-452933:10 Request Rapid Flu (71500 x 2)Indication: Flu-like symptoms On: 13-Kjg-719857:01 Request EB ANTIBODY NUCLR ANTIGN (17802)Indication: Fatigue On: 10-Ldc-154203:01 Request Rapid Flu (73107 x 2)Indication: Fever and chills On: 07-Ugo-815077:00 Request POTASSIUM SERUM (31454)Indication: Hypokalemia On: 4-Hyk-872704:48 Request PROLACTIN (38287)Indication: Amenorrhea On: 3-Uny-868653:56 Request DHEA-S (DEHYDROEPIANDROSTERONE SULFATE) (19723)Indication: Amenorrhea On: 2-Fwd-426476:55 Request TESTOSTERONE FREE (45549)Indication: Amenorrhea On: :55 Request 17-HYDROXYPREGNENOLONE (90803)Indication: Amenorrhea On: :52 Request CORTISOL FREE (22240)Indication: Elevated blood-pressure reading without diagnosis of hypertension On: :49 Request METANEPHRINES - URINE (09762)Indication: Elevated blood-pressure reading without diagnosis of hypertension On: :49 Request CATECHOLAMINES TOTAL, URINE (91198)Indication: Elevated blood-pressure reading without diagnosis of hypertension On: :49 Request URINE VMA (03241)Indication: Elevated blood-pressure reading without diagnosis of hypertension On: :49 Request Metabolic Panel, Basic (53864)Indication: Stress reaction On: :29 Request MICROALBUMIN: CREATININE RATIO (81887) AND (59406)Indication: Unspecified Diagnosis On: 69-Okl-788290:18 Request CALCIFEDIOL (91173)Indication: Elevated blood-pressure reading without diagnosis of hypertension On: 91-Ozw-407881:14 Request TSH (61128)Indication: Elevated blood-pressure reading without diagnosis of hypertension On: 74-Ehq-135042:13 Request METABOLIC PANEL, COMPREHENSIVE (00240)Indication: Nausea On: :40 Request Lipase (79105)Indication: Nausea On: 40-Fhn-868300:40 Request TEST - SERUM QUANTITATIVE (HCG) (76738)Indication: Amenorrhea On: :40 Request Amylase (26538)Indication: Nausea On: 75-Efa-028278:40 Request METABOLIC PANEL, COMPREHENSIVE (75281)Indication: Palpitations On: :47 Request CBC WITH MANUAL DIFF (79229)Indication: Palpitations On: :47 Request TSH (26565)Indication: Palpitations On: :47 Request AUTUMN CULTURE-OTHER (31198)Indication: Acute pharyngitis On: :28 Request BHCG (HUMAN CHORIONIC GONADOTROPIN - BETA) (74281)Indication: Amenorrhea On: 07-Qre-351695:22 Request HCG (HUMAN CHORIONIC GONADOTROPIN) (38928)Indication: Amenorrhea On: 74-Hpb-934149:22 Request Planned Encounters Medical; TIFFANIE 2 Month FU - On: 26-Jun-2018 9:15 [facility] Michelle Reaves MD, MD, Dana M Planned Procedures MRI OF LEFT KNEE WITHOUT CONTRAST On: 20-Feb-2018 Intent (51373)By: Michelle Reaves MD Comments: will plan for 4 weeks. Michelle HARGROVE DRAIN/INJECT MAJOR JOINT OR BURSA On: 10-Feb-2018 Intent (97936)By: Michelle Reaves MD Comments: 2 cc Marcaine lot# [id number] exp 1 cc kenalog lot# [id number] exp rte: left knee intra articular dose: as above given by:Dr. Jensen Hall LPN MD, Dana M Radiology - Knee - Left - Weight On: 07-Feb-2018 Intent BearingBy: Michelle Reaves MD, MD, Dana M SPECIMEN HNDLNG/TRNSPRT, OFFC > LAB On: 18-Jun-2016 Intent (88205)By: Michelle Reaves MD, MD, Dana M SPECIMEN HNDLNG/TRNSPRT, OFFC > LAB On: 04-Jun-2016 Intent (63553)By: Michelle Reaves MD, MD, Dana M Radiology - Small Bowel Series On: 18-Nov-2015 Intent (71505)By: Michelle Reaves MD, MD, Dana M Radiology - KUBBy: Kirsten Arias CNP On: 31-Aug-2015 Intent Comments: call to MCiesa INFUSION, NORMAL SALINE SOLUTION , On: 31-Aug-2015 Intent 1000 CC (Special Coverage Comments: 1000 ccIVleft antecub.tolerated well22 [facility] 57-007jtexp 03/2017RUTH steen Instructions Apply. See MCM: 2049) (J7030)By: Kirsten [...] MD, Dana M Comments: right now call wtih wet read. ELECTROCARDIOGRAM, COMPLETE (ECG) On: 19-Jan-2014 Intent (35118)By: Michelle Reaves MD, MD, Dana M Eprescribed prescriptions (G8553)By: On: 02-Jun-2013 Intent Long SYSTEMS INTEGRATOR, Kathy L EKG (23619)By: Michelle Reaves MD On: 27-Jan-2013 Intent Michelle Reaves MD Comments: see scanned document of test done to see results reviewed today with patient Eprescribed prescriptions (G8553)By: On: 27-Jan-2013 Intent Long SYSTEMS INTEGRATOR, Kathy L TDAP VACCINE >7 IM (46365)By: Jensen On: 30-Apr-2011 Intent Michelle HARGROVE MD, Dana M FLU VAC, SPLIT, >3 YEARS, INTRAMUSC On: 30-Apr-2011 Intent (99648)By: PHILLIP Leigh Comments: Lot #:[id number] date:mount given:0.5mlRoute: IMSite given:left deltoid Given by: HBryan IMMUNIZ ADMNIN, 1 VAC, SNGL/COMBO On: 30-Apr-2011 Intent (08211)By: PHILLIP Liegh Nuclear Stress Test/Stress On: 05-Mar-2011 Intent SPECT/TreadmillBy: Kirsten Arias CNP ELECTROCARDIOGRAM, COMPLETE (ECG) On: 05-Mar-2011 Intent (89071)By: Kirsten Arias CNP Bio Z (46932)By: Kirsten Arias CNP On: 05-Mar-2011 Intent Holter Moniter (64274)By: Pop HORAN, On: 29-Nov-2010 Intent Atiya EKG (93975)By: Indu Mai LPN On: 29-Nov-2010 Intent Comments: [...] Advance Directives Name Dates Details Immunization Registry [place] - Effective on Effective: 05-Jul-201707/05/2017. Expiration date [...] fever. Note for Insect bite/sting: was in [place]- she got lots of bites not sure [...] Nutrition: balanced diet and supplemental vitamins. 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
--- OUTSIDE RECORDS SUMMARY | 2018-08-05 17:28 | XMS RPT_ITS | Continuity of Care Document ---
:1980 Author Organization [facility] Address [address] [address] Phone Care Team Providers Name Role Phone [...] grade fever. Dr. anderson 2-16 and repeat die hardener negative and labs negative. rightn ow no [...] saw Dr. Josh Lemus in vasuclar at [facility] and Dr. Jessica jama at [facility] severe preeclampsia Status: Active Hives (L50.9, [...] walk not feel need at much to community health. 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 Status: Inactive as of 01-Mar-2014 Elevated WBC [...] 686.9) Comments: went into cellutiis after at [facility] in water. will do soap cleanses only [...] resolve on atb and will follow up [facility] ent Status: Resolved as of 10-May-2017 [...] Note; NOTES: [facility] [address] [place] [address] OFFICE VISIT Date of Service: 05/06/18 MR#: [id number] Acct: [id number] Name: SANDRA RATLIFF Rep #: [id number] : 1980 Provider: Ofe Jay DO Age/Sex: 37/F Location: [facility] [place] Status: Signed Intake Intake Visit Reasons: LEFT [...] #10 cap 11/17/15 [Rx] Hydrocodone Bitart/Apap 5-325 [Institute 5/325] 1 - 2 tab PO Q4H [...] treatment options are d o nothing, injection, ID-EYE eval or knee scope for debridement. We [...] of meniscus of left knee M23.307 05/06/18 9875 <Electronically signed by Ofe Jay DO> Date Ofeshari Jay Darby Signature: Date (if applicable) CC: 03-Apr-2018 Lower Ext Joint Only (Routine) Result: Comments: See Note; NOTES: [facility] Imaging Services [address] [place] [address] Lower Ext Joint Only (Routine) MR#: [id number] Acct: [id number] Name: SANDRA RATLIFF Rep #: [id number] : 1980 F 37 From: Laurent Amos MD PCP: Michelle Reaves MD Status: REG CLI Study: Lower Ext Joint Only (Routine) Date of Exam: 04/03/18 Exam# [id number] Ordering Dr: Michelle Reaves MD STUDY: MRI [...] Service support , CC: Michelle Reaves MD Practicing Md Anesthesiologist: Signed 31-Mar-2018 PT D/C Summary (1) Result: Comments: See Note; NOTES: [facility] [address] [place] [address]. [address] [place], [place] [id number] Fax REHABILITATION SERVICES [facility] SUMMARY MR#: [id number] Acct: [id number] Name: SANDRA RATLIFF Rep #: [id number] : 1980 37 From: Keri Mack PT, Cert. MDT Referring Dr.: Michelle Reaves MD Status: REG RCR Insurance: [facility] SELF PAY INSURANCE HP - [...] please feel free to call me at [phone]. Thank you for the referral of this patient. Sincerely, Keir Mack <Electronically signed by Keri Mack PT, Cert. MDT> 03/31/18 1407 CC: Michelle Reaves MD ZELDA Signed 04-Mar-2018 Inital Evaluation (1) - PT Result: Comments: See Note; NOTES: [facility] [address] [facility]. [address] [place] [address] Fax REHABILITATION SERVICES INITIAL EVALUATION MR#: [id number] Acct: [id number] Name: SANDRA RTALIFF Rep #: [id number] : 1980 37 From: Keri Mack PT, Cert. 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 Disability: NO. Present symptoms: INSIDE OF LEFT [...] to be FAXED BACK to us at [phone] for Medicare purposes. Please let me know if there are questions or concerns regarding this plan of c are. Physician Signature: Date: <Electronically signed by Keri Mack PT, Cert. MDT> 03/04/18 1248 CC: Michelle Butterfield ZELDA Signed For Medicare only, by signing this I certify the plan of care. Physicians Signature Date 08-Feb-2018 Knee 4 or More Views Result: Comments: See Note; NOTES: [facility] Imaging Services [address] [facility] [place] [address] Knee 4 or More Views MR#: [id number] Acct: [id number] Name: SANDRA RATLIFF Rep #: [id number] : 1980 F 37 From: Caity Felix MD PCP: Michelle Reaves MD Status: REG CLI Study: Knee 4 or More Views Date of Exam: 02/08/18 Exam# [id number] Ordering Dr: Michelle Reaves MD STUDY: X-RAY - LEFT KNEE REASON FOR EXAM: Female, 37 years old. [place] pop swelling pain TECHNIQUE: 4 view(s) of [...] Tel , Service support , Fa x [phone] CC: Michelle Reaves MD Practicing Md Anesthesiologist: Signed 22-Nov-2015 Emergency Department Summary Result: Comments: See Note; NOTES: [facility] Medical Records Department [address] [place] [address] Emergency Department Summary MR#: [id number] Acct: [id number] Name: SANDRA RATLIFF Rep #: [id number] : 1980 35 From: Bulmaro Rodriguez MD [...] with Dr. Reaves, return with any problems. [place] diet, fluids. CLINICAL IMPRESSION: Abdominal pain with nausea and diarrhea. DISPOSITION: Home. MD Chase Odom C: Michelle Reaves MD T: NTS JOB: [id number] 11/22/15 2339 <Electronically signed by Bulmaro Rodriguez MD> Date Bulmaro Rodriguez MD Cosigner Signature (If Indicated): Date CC: Michelle Reaves MD Date Dictated: 11/17/15 1240 Date Transcribed: 11/17/15 124 Practicing Md Anesthesiologist: Signed 22-Nov-2015 Small Bowel Series Only Result: Comments: See Note; NOTES: [facility] Imaging Services [address] [place] [address] Verdana 4d Small Bowel Series Only MR#: [id number] Acct: [id number] Name: HER SANDRA MCKEON Rep #: [id number] : 1980 F 35 From: Leigha Colon MD PCP: Michelle Reaves MD Status: REG CLI Study: Small Bowel Series Only Date of Exam: 11/22/15 Exam# [id number] Ordering Dr: Michelle Medina MD STUDY: AIR-CONTRAST [...] spot views were obtained COMPARISON: None. FINDINGS: Hourly Associate view: The bowel gas pattern is unremarkable [...] at 16:48 EDT Tel , Service support [phone], RAD/Small Bowel Series Only IMPRESSION: Unremarkable study. Electronically Signed: Leigha Colon MD at 16:48 E DT Tel , Service support [phone], CC: Michelle Reaves MD Practicing Md Anesthesiologist: Signed 17-Nov-2015 Discharge Instruction Result: Comments: See Note; NOTES: [facility] Medical Records Department [address] [place] [address] Discharge Instruction 11/17/15 1236 MR#: [id number] Acct: [id number] Name: SANDRA RATLIFF Rep #: [id number] : 1980 35 From: Bulmaro Rodriguez MD PCP: Michelle Reaves MD Status: REG ER ED Disposition - Plan for ED Patient: Disposition: Home or Assisted Living Chief Complaint: Abd Pain Instructions: ED Abdominal Pain, Unknown Cause, (Female), ED Vomiting And Diarrhea, Nonspecific (Adult) Prescriptions: Hydrocodone Bitart/Apap 5-325 [Institute 5/325] 1 - 2 t ablet PO [...] problems, contact your doctor. Call [facility] ([phone]) or report to the closest [facility] Room. Call 911 if necessary. 11/17/15 1238 <Electronically signed by Bulmaro Rodriguez MD> Date Bulmaro [place] (If Indicated): Date CC: Michelle Reaves MD 17-Nov-2015 Abdomen/Pelvis WITH Contrast Result: Comments: See Note; NOTES: [facility] Imaging Services [address] [place] [address] Verdana 4d Abdomen/Pelvis WITH Contrast MR#: [id number] Acct: [id number] Name : SANDRA RATLIFF Rep #: [id number] : 1980 F 35 From: Isaac Espinoza MD PCP: Michelle Reaves MD Status: [facility] ER Study: Abdomen/Pelvis WITH Contrast Date of Exam: 11/17/15 Exam# [id number] O rdering Dr: Bulmaro Rodriguez MD STUDY: CT ABDOMEN AND PELVIS WITH CONTRAST REASON FOR EXAM: Female, 35 years old. Mid lower abdominal pain. Diarrhea and nausea. RADIATION DOSAGE (If Supplied By [facility]): CTDIvol = ( 18.40 ) mGy, [...] is made with prior study dated [facility] 2015. FINDINGS: The visualized lung bases are [...] Isaac Espinoza MD at 12:27 EDT Tel [phone], Service support [phone], CC: Michelle Reaves MD; Bulmaro Rodriguez MD Practicing Md Anesthesiologist: Signed 13-Nov-2015 Operative Report Result: Comments: See Note; NOTES: [facility] Medical Records Department [address] [place] [address] Operative Report MR#: [id number] Acct: [id number] Name: LANNYNITIN Rep #: [id number] : 1980 35 From: Vi Sanchez MD [...] complications. Vi Sanchez MD T: NTS JOB: [id number] 11/13/15939 <Electronically sig shawn by Vi Sanchez MD> Date Vi Sanchez MD Cosigner Signature (If Indicated): Date C C: Michelle Reaves MD; Vi Sanchez MD Date Dictated: 11/07/15910 Date Transcribed: 11/07/15910 Practicing Md Anesthesiologist: Signed 31-Aug-2015 Abdomen Single View Result: Comments: See Note; NOTES: [facility] Imaging Services [address] [place] [address] Verda 4d Abdomen Single View MR#: [id number] Acct: [id number] Name: SANDRA RATLIFF Rep #: [id number] : 1980 F 35 From: Isaac Espinoza MD PCP: Michelle Reaves MD Status: REG CLI Study: Abdomen Single View Date of Exam: 08/31/15 Exam# [id number] Ordering Dr: Kirsten Arias STUDY: X-RAY - [...] Isaac Espinoza MD at 13:18 EST Tel [phone], Service support [phone], RAD/Abdomen Single View IMPRESSION: Normal x-ra y examination of the abdomen and pelvis. Electronically Signed: Isaac Espinoza MD at 13:18 EST Tel [phone], Service support [phone], CC: Kirsten Arias ; Michelle Reaves MD Practicing Md Anesthesiologist: Signed 29-Jul-2015 Transvaginal Non- Result: Comments: See Note; NOTES: [facility] Imaging Services [address] [place] [address] Verdana 4d Transvaginal Non- MR#: [id number] Acct: [id number] Name: SANDRA ZAVALA Rep #: [id number] : 1980 F 35 From: Isaac Espinoza MD PCP: Michelle Reaves MD Status: REG CLI Study: Transvaginal Non- Date of Exam: 07/29/15 Exam# [id number] Orderi ng Dr: Michelle Reaves MD STUDY: [...] Isaac Espinoza MD at 14:01 EST Tel [phone], Service support [phone], CC: Michelle Reaves MD Practicing Md Anesthesiologist: Signed 29-Jul-2015 Pelvic (Non ) Result: Comments: See Note; NOTES: [facility] Imaging Services [address] [place] [address] Verdana 4d Pelvic (Non ) MR#: [id number] Acct: [id number] Name: SANDRA BELLE Rep #: [id number] : 1980 F 35 From: Isaac Espinoza MD PCP: Michelle Reaves MD Status: REG CLI Study: Pelvic (Non ) Date of Exam: 07/29/15 Exam# [id number] Ordering Dr: Michelle Ponce MD STUDY: ULTRASOUND [...] Isaac Espinoza MD at 14:01 EST Tel [phone], Service support [phone], CC: Michelle Reaves MD Practicing Md Anesthesiologist: Signed 25-Jul-2015 Abdomen/Pelvis WITH Contrast Result: Comments: See Note; NOTES: [facility] Imaging Services [address] [place] [address] Verdana 4d Abdomen/Pelvis WITH Contrast MR#: [id number] Acct: [id number] Name : SANDRA RATLIFF Rep #: [id number] : 1980 F 35 From: Isaac Espinoza MD PCP: Michelle Reaves MD Status: REG CLI Study: Abdomen/Pelvis WITH Contrast Date of Exam: 07/25/15 Exam# [id number] Ordering Dr: Michelle Reaves MD STUDY: CT [...] Isaac Espinoza MD at 9:19 EST Tel [phone], Service support [phone], CC: Michelle Reaves MD Practicing Md Anesthesiologist: Signed 07-Jul-2015 Abdomen Limited Result: Comments: See Note; NOTES: [facility] Imaging Services [address] [place] [address] W[place]odana 4d Abdomen Limited MR#: [id number] Acct: [id number] Name: JEANNIE RATLIFF Rep #: [id number] : 1980 F 35 From: Leigha Colon MD PCP: Michelle Reaves MD Status: REG CLI Study: Abdomen Limited Date of Exam: 07/07/15 Exam# [id number] Ordering Dr: Michelle Reaves MD STUDY: ABDOMINAL [...] at 16:22 EST Tel , Service support [phone], CC: Michelle Reaves MD Practicing Md Anesthesiologist: Signed 22-Apr-2015 OT Discharge Summary Result: Comments: See Note; NOTES: [facility] [place] [address] [facility]. [address] [place] [address] Fax REHABILITATIO N SERVICES DISCHARGE SUMMARY MR#: [id number] Acct: [id number] Name: SANDRA RATLIFF Rep #: [id number] : 1980 34 From: Bernarda De La [...] However, she did make some improvements. Her client finance analyst strength improved from 35 pounds to 70 pounds. She was reporting independence with act ivities of daily living at this time. The patient was last seen on January 11, 2015, no further appointments were indicated. At this time, the patient is discharged. Bernarda De La Vega, OTR/L T: NTS JOB: [id number] <Electronically signed by Bernarda De La Vega > 04/22/15 1057 CC: Signed 10-Feb-2015 Operative Report Result: Comments: See Note; NOTES: [facility] Medical Records Department [address] [place] [address] Operative Report 02/02/15 1305 MR#: [id number] Acct: [id number] Name: L[place] SANDRA LAMAS Rep #: [id number] : 1980 34 From: Vi Sanchez MD PCP: Michelle Reaves MD Status: DEP [facility] Y Location: [facility] Report of Operation Date of Procedure: 02/02/15 Pre-Operative Diagno sis: cholelithiasis, cholecystitis Post-Operative Diagnosis: same Surgery/Procedure Performed:: laparoscopic cholecystectomy with cholangiogram head of marketing: NOT,DEFINED Type of Anesthesia:: General Anesthesiologist: Aide [...] Lead Electrocardiogram Result: Comments: See Note; NOTES: [facility] Cardiovascular Services [address] [place], [place] [address] [address] 12 Lead EKG 02/02/15 1129 MR#: [id number] Acct: [id number] Name: ELISABETH RATLIFF Rep #: [id number] : 1980 34 From: Stephane Boyle MD Attending Dr: Vi Sanchez MD Status: [facility] Ordering Dr: Buzz Collins MD Date: 02/02/15 Location: [facility] Sex: F C Admitted: Test [place] son : PRE OP Blood Pressure : / mmHG Vent. Rate : 074 BPM Atrial Rate : 074 BPM P-R Int : 134 ms QRS Dur : 110 ms QT Int : 378 ms P-R-T Axes : 051 071 046 degrees QTc Int : 419 ms Normal sinus rhythm Normal ECG No previous ECGs available Confirmed by STEPHANE BOYLE MD ([id number]), city editor JASMIN RAMOS ([id number]) on 02/04/2015 10:20:06 AM Referred By: LALO Confirmed By:STEPHANE BOYLE MD 1020 Date Stephane Boyle MD CC: Michelle Reaves MD Date Dictated: 02/02/15 1129 Date Transcribed: 02/02/15 112 Practicing Md Anesthesiologist: Signed 04-Feb-2015 Emergency Department Summary Result: Comments: See Note; NOTES: [facility] Medical Records Department [address] [place] [address] Emergency Department Summary MR#: [id number] Acct: [id number] Name: SANDRA BELLE Rep #: [id number] : 1980 34 From: Naldo Schaeffer MD PCP: Michelle Reaves MD Status: [facility] ER DATE OF SERVICE: 02/01/2015 CHIEF COMPLAINT: [...] C: Michelle Reaves MD T: NTS JOB: [id number] 02/04/15 0552 <Electronically signed by Naldo Schaeffer MD> Date Naldo quintanilla MD CC: Michelle Reaves MD Date Dictated: 02/01/15536 Date Transcribed: 02/01/15536 Practicing Md Anesthesiologist: Signed 02-Feb-2015 Discharge Instruction Result: Comments: See Note; NOTES: [facility] Medical Records Department [address] [place] [address] Instructions for Home/Discharge Instructions 02/02/15 1305 MR#: [id number] ct: [id number] Name: SANDRA RATLIFF Rep #: [id number] : 1980 34 From: Vi Sanchez MD PCP: Michelle Reaves MD Status: REG [facility] Discharge Diet: No Restrictions - drink plenty [...] for date and time, thank you 02/02/15 8411 <Electronically deangelo d by Vi Sanchez MD> Date Vi Sanchez MD CC: Michelle Reaves MD 02-Feb-2015 History and Physical Exam Result: Comments: See Note; NOTES: [facility] Medical Records Department [address] [place] [address] History and Physical 02/02/15 1155 MR#: [id number] Acct: [id number] Name: SANDRA RATLIFF Rep #: [id number] : 1980 34 From: Vi Sanchez MD PCP: Michelle Reaves MD Status: REG [facility] Y Location: [place] [address] History and Physical - Blank Date of Admission: 02/02/15 P [facility] Provider: Dr. Reaves History of [...] Morbid obesity, class III Past Surgical History: [place] teeth extraction C section 2010 Past injuries: [...] 77 / minute Resp: 18 per min agdaagux BP sittin / 83 General: well developed, [...] 01-Feb-2015 Gallbladder Result: Comments: See Note; NOTES: [facility] Imaging Services [address] [place] [address] Ultrasound Report MR#: [id number] Acct: [id number] Name: SANDRA RATLIFF Rep #: : 1980 F 34 From: Deonte Woods DO PCP: Michelle Reaves MD Status: REG CLI Study: Gallbladder Date of Exam: 02/01/15 Exam# [id number] Ordering Dr: Michelle Reaves MD STUDY: ABDOMINAL [...] Deonte Woods DO at 17:18 EDT Tel [phone], Service suppor t [phone], N.B. : The above information has been verbally conveyed by Deonte Woods DO to Michelle Reaves MD, Referring Physician, on 02/01/2015 17:24:35 (ET). CC: Michelle Reaves MD Practicing Md Anesthesiologist: Signed 01-Feb-2015 Discharge Instruction Result: Comments: See Note; NOTES: [facility] Medical Records Department [address] [place] [address] Discharge Instruction 02/01/15 0534 MR#: [id number] Acct: [id number] Name: SANDRA RATLIFF Rep #: [id number] : 1980 34 From: Naldo Schaeffer MD [...] unex pected problems, contact your doctor. Call [facility] ([phone]) or report to the closest Emergency Room. Call 911 if necessary. 02/01/15 0535 <Electronically signed by Abdullahi Schaeffer MD> Date Naldo Schaeffer MD Cosigner Signature (If Indicated): Date CC: Michelle Reaves MD 18-Nov-2014 Initial Evaluation - OT Result: Comments: See Note; NOTES: [facility] [place] [address] Fax REHABILITATION SERV ICES INITIAL EVALUATION MR#: [id number] Acct: [id number] Name: SANDRA RATLIFF Rep #: [id number] : 1980 34 From: Bernarda De La Vega Referring DrMagdy: Ofe Jay DO Status: REG RCR Insu elly: [facility] Date: DATE OF SERVICE: PHYSICIAN: [...] Right ulnar deviation 10, left 30. Right client finance analyst strength is 35 pounds, left is 70 [...] The patient will demonstrate increase in right client finance analyst strength to 65 pounds or greater to [...] De La Vega, OTR/L T: EMILY JOB: [id number] <Electronically signed by Bernarda De La Vega & #62; 11/18/14 0927 CC: Signed For Medicare only, by signing this I certify the plan of care. Physicians Signature Date 04-Nov-2014 Wrist min 3 Views Result: Comments: See Note; NOTES: [facility] Imaging Services [address] [place] [address] Radiology Report MR#: [id number] Acct: [id number] Name: SANDRA RATLIFF Rep #: [id number] : 1980 F 34 From: Catrachito Wren MD PCP: Michelle Reaves MD Status: REG CLI Study: Wrist min 3 Views Date of Exam: 11/04/14 Exam# [id number] Ordering Dr: Ofe Jay DO STUDY: X-RA [...] MD at 14:57 EDT , Service support [phone], RAD/Wrist min 3 Views IMPRESSION: Normal x-ray examination of the wrist. Electronically Signed: Catrachito Wren MD at 14:57 EDT , Service support [phone], Fax CC: Ofe Jay DO; Michelle Reaves MD Practicing Md Anesthesiologist: Signed Immunization Name Dates Details Tdap (7 years and up) on: 30-Jun-2017 Comments: [facility] Family History Unknown Family Member Name Dates Details Brother 1 Comments: healthy Status: Active Father Comments: hx. ID (age 50) CABGx3, heart disease Status: Active [...] use. 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 Aries [phone] Status: Active Exercise History: Exercises occasionally. Comments: [...] kg/m2 Body Surface Area Calculated 2.55 m2 93-Hno-31643:17 Temperature 97.9 f Comments: Method: Temporal Pulse [...] in this mix are: Blue mussel Fish Rapidan Shrimp Tuna EGG, WHOLE <0.10 kU/L (Normal) CHOCOLATE <0.10 kU/L (Normal) Comments: Performed at: [address] [id number] Director: Davide Jordan MD, Phone: [phone] BEEF <0.10 kU/L (Normal) PORK <0.10 kU/L (Normal) SOYBEAN <0.10 kU/L (Normal) PEANUT <0.10 kU/L (Normal) CORN <0.10 kU/L (Normal) WHEAT <0.10 kU/L (Normal) MILK (COW) <0.10 kU/L (Normal) :43 CBC-Complete Blood Cnt No Diff Comments: [facility] [address] [facility] [address] [place], [place], [address] ; fu 10-5 DB MPV 10.0 fL [...] Range: 4.4-11.0 :43 Comprehensive Metabolic Profil Comments: [facility] [address] [facility] [address] [place], [place], [address] GAP 10 (Normal) Range: 5-15 CO2 27.0 [...] Comments: Please note revised GLUCOSE reference range zajqcbxlp49/02/2018. :43 T4 Free Direct Comments: [facility] [address] [facility] [address] [place], [place], [address] T4 FREE DIRECT 1.04 ng/dL (Normal) Range: 0.76-1.46 :43 Thyroid Stim Hormone (TSH) Comments: [facility] [address] [place], [place], [address] TSH 2.11 {uIU/mL} (Normal) Range: 0.358-3.74 :43 Vitamin D,25 Hydroxy Comments: [facility] [address] [place], [address] Vitamin D 25-OH 30.2 ng/mL (Normal) Range: 29.95-100.01 Comments: Vitamin D 25(OH) Status Range Deficiency <20 ng/mL (50nmol/L) Insuffciency 20 - 30 ng/mL (50 - 75 nmol/L) Sufficiency 30 - 100 ng/mL (75 - 250 nmol/L) Toxicity >100 ng/mL (>250 nmol/L) 5-Nmt-086614:16 NuSwab Vaginitis Plus Comments: PATIENT NOT FASTINGPERFORMED BY: [facility] [id number] Information: SRC:CE (trich/BV/GC/linda W/O Herpes) (50787) Neisseria gonorrhoeae, Negative (Normal) ROBERT Chlamydia trachomatis, Negative (Normal) ROBERT Trich vag by ROBERT Negative (Normal) Mercedes glabrata, ROBERT Negative (Normal) Comments: This test was developed and its performance characteristics determinedby [facility]. It has not been cleared or approved [...] was developed and its performance characteristicsdetermined by [facility]. It has not been cleared or approvedby the Food and Drug Administration. The FDA has determinedthat such clearance or approval is not necessary. BVAB 2 Low - 0 {Score} (Normal) Atopobium vaginae Low - 0 {Score} (Normal) 6-His-741940:16 HPV automatic Comments: Source.............Cervix;EndocervixNo. of containers..01 ThinPrep VialPATIENT NOT FASTINGPERFORMED BY: WB [facility] [facility] [id number] BY: =G [facility] ([address]) orcrvf192 [facility] [id number] Information: [id number] HPV, high-risk Negative Comments: This high-risk HPV [...] metaplasticcells (endocervical com ponent) are present.Z01.419Nathaly [employer] Qa Analyst (ASCP) 09-May-20178:25 URINE AUTUMN CULTURE-IDENTIFICATN Comments: PATIENT NOT FASTINGPERFORMED BY: CB [facility] [id number] [place] [id number] (70342) Antimicrobial MIHEAD (Normal) Comments: S = Susceptible; [...] Urine Final report Culture,Comprehensive (Abnormal) 09-May-20178:25 URINALYSIS (10943) Comments: PATIENT NOT FASTINGPERFORMED BY: CB [facility] Caidnm4412 [facility] [id number] Information: SRC:UC Microscopic Examination MICNIP (Normal) Comments: Microscopic not indicated and not performed. Nitrite, Urine Negative (Normal) Urobilinogen,Semi-Qn 0.2 mg/dL (Normal) Range: 0.2-1.0 Bilirubin Negative (Normal) Occult Blood Negative (Normal) Ketones Negative (Normal) Glucose Negative (Normal) Protein Negative (Normal) WBC Esterase Negative (Normal) Appearance Clear (Normal) Urine-Color Yellow (Normal) pH 5.5 (Normal) Range: 5.0-7.5 Specific Dale 1.022 (Normal) Range: 1.005-1.030 :35 CBC, Platelets & Auto Diff Comments: PATIENT NOT FASTINGPERFORMED BY: LabCoSt. Luke's Warren HospitalLoaauz4406 [facility] [id number] Information: NURSE DRAW (59576) Immature Grans (Abs) 0.0 {x10E3/uL} (Normal) Range: [...] Panel, Comprehensive Comments: PATIENT NOT FASTINGPERFORMED BY: [employer] Ajwrqk2249 [facility] [id number] (03551) ALT (SGPT) 18 [iU]/L (Normal) Range: 0-32 [...] (Abnormal) Range: 65-99 :35 T3, FREE (TRIDOTHYRONINE) (86795) Comments: PATIENT NOT FASTINGPERFORMED BY: [employer] Aonkrn7462 AmosGolden GekkoCaroMont Health [id number] Triiodothyronine,Free,Serum 3.7 pg/mL (Normal) Range: 2.0-4.4 :35 T4, FREE (THYROXINE) (67431) Comments: PATIENT NOT FASTINGPERFORMED BY: Meilapp.comSt. Luke's Warren HospitalDcfiko8309 [facility] [id number] T4,Free(Direct) 1.07 ng/dL (Normal) Range: 0.82-1.77 59-Zhi-684317:15 HgA1C , Office (21789) HgA1C , Office 5.5 % (Normal) Range: 4.6 - 7.1 65-Qpu-875753:33 METABOLIC PANEL, Comments: PATIENT WAS FASTINGPERFORMED BY: LabPatrick Ville 770207 [facility] [id number] BY: LabDydraSt. Luke's Warren HospitalPjpexr9653 [facility] [id number] COMPREHENSIVE (37746) ALT (SGPT) 21 [iU]/L (Normal) Range: 0-32 [...] Glucose, Serum 88 mg/dL (Normal) Range: 65-99 35-Uxg-914424:33 LIPOPROTEIN, BLD, BY NMR Comments: PATIENT WAS FASTINGPERFORMED BY: BN [facility] Mumctwpatx5834 [facility] [id number] BY: CB [facility] Rxcdqm5452 [facility] [id number]; fu 8-1 db (07422) LP-IR Score 72 (Abnormal) Comments: INSULIN RESISTANCE MARKER <--Insulin Sensitive Insulin Resistant--> Percentile in Reference PopulationInsulin Resistance ScoreLP-IR Score Low 25th 50th 75th High <27 27 45 63 >63LP-IR Score is inaccurate if patient is non-fasting. .The LP-IR score is a laboratory developed i [facility] that has beenassociated with insulin resistance [...] were developed and their performance characteristicsdetermined by [employer]. These assays have not been cleared by [...] 1600 - 2000 Very High > 2000 12-Xqj-563348:33 CBC with auto diff Comments: PATIENT WAS FASTINGPERFORMED BY: BN [facility] [address] [id number] BY: CB [facility] Ablgsa3384 [facility] [id number] (65373) Immature Grans (Abs) 0.0 {x10E3/uL} (Normal) Range: [...] 3.77-5.28 WBC 9.2 {x10E3/uL} (Normal) Range: 3.4-10.8 17-Rto-410058:33 CALCIFIDIOL (16182) VIT D Comments: PATIENT WAS FASTINGPERFORMED BY: [facility] [facility] [address] [id number] BY: [employer] Tvbetn3950 Amos [facility] [id number] 25 Vitamin D, 25-Hydroxy 51.8 ng/mL (Normal) Range: 30.0-100.0 Comments: Vitamin D deficiency has been defined by the Walker ofMedicine and an Endocrine Society practice guideline as alevel of serum 25-OH vitamin D less than 20 ng/mL (1,2).The Endocrine Society went on to further define vitamin Dinsufficiency as a level between 21 and 29 ng/mL (2).1. IOM (Walker of Medicine). 2010. Dietary reference intakes for calcium and D. [place]: The National Academies Press.2. Clari MF, Jose LEES, Ash NETTLES, et al. Evaluation, treatment, and prevention of vitamin D deficiency: an Endocrine Society clinical practice guideline. JCEM. 2010; 96(7):1911-30. :38 AUTUMN CULTURE-OTHER (40802) Comments: PATIENT NOT FASTINGPERFORMED BY: Meilapp.comSt. Luke's Warren HospitalOkuiam3[address] [place] [address] [id number] Information: SRC: Result 1 RRF (Normal) Comments: Routine respiratory juan Upper Respiratory Culture Final report (Normal) 94-Ldn-09478:32 AUTUMN CULTURE-OTHER (99229) Comments: PATIENT NOT FASTINGPERFORMED BY: [facility] Jhillr6369 [place]ette [place]al[place] [id number] Information: SRC:TH Result 1 RRF (Normal) Comments: Routine respiratory juan Upper Respiratory Culture Final report (Normal) 79-Cjb-795351:35 Rapid Strep Test, Office (25429) Rapid Strep Test, Office Negative (Normal) 64-Ons-589305:39 CBC W/Diff, Automated Comments: [facility] Vmotzcmeup7369 [place], [address] Absolute Lymph 3.19 {X10_3/ul} (Normal) Range: 0.83-4.51 [...] Range: 4.4-11.0 :39 Prothrombin Time w/INR Comments: [facility] Khbabltzuc2908 [address] [place], [place], [address] INR 1.0 (Normal) PROTIME 12.9 s (Normal) Range: 11.7-14.9 :58 CBC, Platelets & Auto Comments: PATIENT NOT FASTINGPERFORMED BY: [facility] Tqqtrs7626 [facility] [id number] Information: [id number] Diff (10294) Immature Grans (Abs) 0.0 {x10E3/uL} (Normal) Range: [...] (Normal) Range: 3.4-10.8 :58 T3, FREE (TRIDOTHYRONINE) (30271) Comments: PATIENT NOT FASTINGPERFORMED BY: [facility]6370 [facility] [id number] Triiodothyronine,Free,Serum 3.2 pg/mL (Normal) Range: 2.0-4.4 :58 T4, FREE (THYROXINE) (24816) Comments: PATIENT NOT FASTINGPERFORMED BY: [address] [id number] T4,Free(Direct) 1.07 ng/dL (Normal) Range: 0.82-1.77 :58 TSH (73913) Comments: PATIENT NOT FASTINGPERFORMED BY: [facility]6370 [facility] [id number] TSH 2.830 {uIU/mL} (Normal) Range: 0.450-4.500 :58 HELICOBACTER PYLORI ANTIBODY Comments: PATIENT NOT FASTINGPERFORMED BY: [facility]6370 [facility] [id number] (14512) H. pylori, IgG Abs <0.9 U/mL (Normal) Range: 0.0-0.8 Comments: Negative <0.9 Indeterminate 0.9 - 1.0 Positive >1.0 :46 Testosterone, Free+Total Comments: PATIENT NOT FASTINGPERFORMED BY: [facility]1447 [facility] [id number] BY: [facility]6370 [facility] [id number] Information: [id number] LC/MS Free Testosterone(Direct) 1.5 pg/mL Range: 0.0-4.2 (Normal) Testosterone, Total, LC/MS 11.8 ng/dL Range: 10.0-55.0 (Normal) Comments: This test was developed and its performance characteristicsdetermined by [facility]. It has not been cleared or approvedby the Food and Drug Administration. Written Authorization WAR (Normal) Comments: PATIENT NOT FASTINGPERFORMED BY: [facility]1447 [facility] [id number] BY: [facility]6370 [facility] [id number] 610:46 Comments: Written Authorization Received.Authorization received from PHILLIP LEIGH LPN [id number] by Chichi Flores 0-Jhh-449429:46 CALCIFIDIOL (37679) VIT D 25 Comments: PATIENT NOT FASTINGPERFORMED BY: [facility]6370 [facility] [id number] Vitamin D, 25-Hydroxy 41.9 ng/mL (Normal) Range: 30.0-100.0 Comments: Vitamin D deficiency has been defined by the Walker ofMedicine and an Endocrine Society practice guideline as alevel of serum 25-OH vitamin D less than 20 ng/mL (1,2).The Endocrine Society went on to further define vitamin Dinsufficiency as a level between 21 and 29 ng/mL (2).1. IOM (Walker of Medicine). 2010. Dietary reference intakes for calcium and D. [place]: The National Academies Press.2. Clari MF, Jose NC, Ash NETTLES, et al. Evaluation, treatment, and prevention of vitamin D deficiency: an Endocrine Society clinical practice guideline. JCEM. 2010; 96(7):1911-30. 3-Efg-309385:46 Metabolic Panel, Comments: PATIENT NOT FASTINGPERFORMED BY: [facility]6370 [facility] [id number] Information: [id number] Comprehensive (81406) ALT (SGPT) 21 [iU]/L (Normal) Range: 0-32 [...] Glucose, Serum 81 mg/dL (Normal) Range: 65-99 74-Wjj-805376:16 Cortisol,Urinary Free 24- Comments: PATIENT NOT FASTINGPERFORMED BY: Lab[address] [id number] Information: [id number] VOLUME 1800; fu 8-18 Hour Urine (07041) Cortisol,F,ug/24hr,U 18 {ug/24_hr} (Normal) Range: 0-50 Comments: This test was developed and its performance characteristicsdetermined by [facility] [facility]. It has not been cleared or approvedby the Food and Drug Administration. Cortisol,F,ug/L,U 10 ug/L (Normal) 2-Xik-066626:46 HGB A1C (34378) Comments: PATIENT NOT FASTINGPERFORMED BY: [facility]6370 [facility] [id number] Hemoglobin A1c 5.5 % (Normal) Range: 4.8-5.6 Comments: . Pre-diabetes: 5.7 - 6.4 Diabetes: >6.4 Glycemic control for adults with diabetes: <7.0 87-Ekl-258515:13 SEROTONIN (89559) Comments: PATIENT NOT FASTINGPERFORMED BY: [address] [id number] Information: [id number] Serotonin, Serum 10 ng/mL (Normal) Range: 0-420 :42 TSH (THYROID STIMULATING Comments: PATIENT NOT FASTINGPERFORMED BY: [facility]6370 [facility] [id number] HORMONE) (11617) TSH 1.560 {uIU/mL} (Normal) Range: 0.450-4.500 :42 CBC, PLATELETS & MANUAL Comments: PATIENT NOT FASTINGPERFORMED BY: [facility]6370 [facility] [id number] Information: [id number] DIFF (37759) Immature Grans (Abs) 0.0 {x10E3/uL} (Normal) Range: [...] 3.77-5.28 WBC 8.2 {x10E3/uL} (Normal) Range: 3.4-10.8 06-Tec-72486:42 ESR-F (SED RATE ERYTHROCYTE - Comments: PATIENT NOT FASTINGPERFORMED BY: [facility]6370 [facility] [id number] FEMALE) (31052) Sedimentation Rate-Westergren 25 mm/h (Normal) Range: 0-32 15-Qqx-13613:42 PREALBUMIN (47827) Comments: PATIENT NOT FASTINGPERFORMED BY: [facility]6370 [facility] [id number] Prealbumin 28 mg/dL (Normal) Range: 9-31 Comments: [...] - 36 >70 years 9 - 32 82-Aqx-581404:45 Urinalysis, Complete Comments: Order Date: 11/17/15How was Urine Obtained? PLANT TECHNICAL SPECIALIST TO [facility] Wydxxscyqr7975 [address] [place], [place], [phone] MUCUS, URINE 0 SEEN {/hpf} (Normal) BACTERIA [...] CLARITY Sl. Cloudy (Normal) COLOR Yellow (Normal) 25-Gda-64695:08 CBC W/Diff, Automated Comments: [facility] Qycfomtkcd6110 [address] [place], [place], [address] Absolute Lymph 1.81 {X10_3/ul} (Normal) Range: 0.83-4.51 [...] Range: 4.4-11.0 :08 Comprehensive Metabolic Profil Comments: [facility] Luzohlvxyj5[address] [place], [place], [address] GAP 6 (Normal) Range: 5-15 CO2 27.0 [...] mg/dL (Normal) Range: 70-110 :08 Lipase Comments: [facility] Jugycah[address] [place], [place], [address] LIPASE 160 U/L (Normal) Range: 73-393 :08 ,Serum,hCG Quali. Comments: [facility] [address] [place], [place], [address] HCGSQUAL NEGATIVE {Negative} Range: 0-9 Nonpreg (Normal) HCG Qual triggr < 1 m[iU]/mL (Normal) 09-Nov-20150:00 LIPOMA (SOFT TISSUE) See Note (Normal) Comments: [facility] Cef[address]ryoo[address] [place], [place], [address] Comments: Patient: SANDRA RATLIFF : 1980 (35/F) Acct Num: [id number] Phys: Yohan HARGROVE,Vi Unit Num: [id number] Loc: LABSPEC Specimen: [id number] Received: 11/09/151842 Spec Type: LIPOMA TISSUES TISSUES: GROSS DESCRIPTION Received is one container labeled with the patient name and designated abdominal lesion. The specimen consists of multiple irregular fragm ents of yellow fatty tissue that in aggregate measure 4 x 3 x 1 cm. Copping Machine Operator portions are submitted in one cassette. / AM:shubham 11/10/15 TC:1 CPT:44239 HEADER OPERATION: Excision upper left a bdominal wall lesion PRE-OP DIAGNOSIS: Upper left abdominal wall lesion TISSUE SUBMITTED: Lipoma of abdominal wall MICROSCOPIC DESCRIPTION Slides are reviewed. MICROSCOPIC DIAGNOSIS Lipo ma of abdominal wall, excision: Mature adipose tissue, consistent with lipoma. SJ:shubham 11/11/15 Signed Yiim Zapata 11/11/15 <signature on file> :50 Culture, Blood (WB) Comments: [facility] Sllilewvxi1231 [facility] [place], [place], [address] CUB See Note (Normal) Comments: BCNo growth in 5 days. 2-Nha-595203:50 Culture, Blood (WB) Comments: [facility] [address] [facility] [address] [place], [place], [address] CUB See Note (Normal) Comments: BCNo growth in 5 days. 72-Iml-49346:08 Urinalysis, Office (99664) UA - LEUKOCYTE ESTERASE Negative (Normal) UA - NITRITE Negative (Normal) URINE UROBILINGN DWAYNE TIMED Normal mg/dL (Normal) UA - PROTEIN 30 mg/dL (Normal) UA - PH 6 (Abnormal) UA - BLOOD Negative (Normal) UA - SPECIFIC GRAVITY 1.020 (Normal) UA - KETONES 15 ug/dL (Abnormal) UA - BILIRUBIN Moderate (Normal) UA - GLUCOSE Negative (Normal) 34-Lyb-675502:10 Microscopic Examination Comments: PATIENT NOT FASTINGPERFORMED BY: LabCoSt. Luke's Warren HospitalMaglfr3156 [facility] [id number] Bacteria Few (Normal) Mucus Threads Present (Normal) Cast Type Hyaline casts (Normal) Casts Present {/lpf} (Abnormal) Epithelial Cells (non renal) 0-10 {/hpf} (Normal) Range: 0 - 10 RBC 0-2 {/hpf} (Normal) Range: 0 - 2 WBC 6-10 {/hpf} (Abnormal) Range: 0 - 5 67-Fbp-184235:51 ANCA Panel Comments: PATIENT NOT FASTINGPERFORMED BY: [facility] [address] [id number] BY: [employer] Qcigwu6308 [facility] [id number] Information: [id number] Atypical pANCA <1:20 {titer} Comments: The atypical [...] follow up testing ofpositive sera with both CT-3 and MPO-ANCA enzyme immunoassays. Asmany as 5% serum samp les are positive only by EIA.Ref. AM J Clin Pathol 1999;111:507-513. Cytoplasmic (C-ANCA) <1:20 {titer} (Normal) Antiproteinase 3 (CT-3) Abs <3.5 U/mL Range: 0.0-3.5 (Normal) Antimyeloperoxidase (MPO) <9.0 U/mL Range: 0.0-9.0 Abs (Normal) Written Authorization WAR (Normal) Comments: PATIENT NOT FASTINGPERFORMED BY: [employer]com[address] [id number] BY: Meilapp.comSt. Luke's Warren HospitalOyekwv2725 [facility] [id number] 612:51 Comments: Written Authorization Received.Authorization received from ERIKA RUANO LPN 11-17-2284Vhsgjj by Shalini Ramos 14-Vtm-675906:51 CBC WITH MANUAL DIFF Comments: PATIENT NOT FASTINGPERFORMED BY: [facility]6370 [facility] [id number] Information: [id number] (73712) Immature Grans (Abs) 0.0 {x10E3/uL} (Normal) Range: [...] 3.77-5.28 WBC 7.8 {x10E3/uL} (Normal) Range: 3.4-10.8 96-Dcl-246535:10 URINE AUTUMN CULTURE-IDENTIFICATN Comments: PATIENT NOT FASTINGPERFORMED BY: [facility]6370 [facility] [id number] (56062) Result 1 NG36 (Normal) Comments: No growth in 36 - 48 hours. Urine Culture,Comprehensive Final report (Normal) 24-Dvk-037955:51 COMPLEMENT C4 (14476) Comments: PATIENT NOT FASTINGPERFORMED BY: [place] 4682270 [facility] [id number] Complement C4, Serum 50 mg/dL (Abnormal) Range: 14-44 48-Lfx-919012:51 COMPLEMENT C3 (73588) Comments: PATIENT NOT FASTINGPERFORMED BY: [address] [id number] Complement C3, Serum 204 mg/dL (Abnormal) Range: 82-167 94-Tje-878666:58 COMPLEMENT, TOTAL (CH50) Comments: PATIENT NOT FASTINGPERFORMED BY: [address] [id number] Information: [id number] (63901) Complement, Total (CH50) >60 U/mL (Abnormal) Range: 42-60 Comments: Please note reference interval change 69-Ogc-534984:10 URINALYSIS (76506) Comments: PATIENT NOT FASTINGPERFORMED BY: [address] [id number] Information: [id number] Microscopic Examination See below: (Normal) Comments: Microscopic was indicated and was performed. Appearance Cloudy (Abnormal) Urine-Color [place] (Normal) Comments: Unable to read or assay due to color interference. Specific Dale 1.023 (Normal) Range: 1.005-1.030 20-Owb-109865:51 HCG Qualitative, Serum (07683) Comments: PATIENT NOT FASTINGPERFORMED BY: [place] 4682270 [facility] [id number] hCG,Beta Subunit,Qual,Serum Negative m[iU]/mL (Normal) 15-Irj-944774:51 serum free light chains Comments: PATIENT NOT FASTINGPERFORMED BY: [address] [id number] (08768) [place]/Lambda Ratio,S 1.97 (Abnormal) Range: 0.26-1.65 Free Lambda Lt Chains,S 16.13 mg/L (Normal) Range: 5.71-26.30 Free [place] Lt Chains,S 31.85 mg/L (Abnormal) Range: 3.30-19.40 :51 urine immunofixation (17554) Comments: PATIENT NOT FASTINGPERFORMED BY: Blooie [facility] [id number] IRWIN Interpretation:U UPEIP (Normal) Comments: No monoclonality detected. :51 serum immunofixation (47952) Comments: PATIENT NOT FASTINGPERFORMED BY: [facility] [id number] Immunoglobulin M, Qn, Serum 68 mg/dL (Normal) Range: 40-230 Immunoglobulin A, Qn, Serum 192 mg/dL (Normal) Range: 91-414 Immunoglobulin G, Qn, Serum 1229 mg/dL (Normal) Range: 700-1600 Immunofixation Result, Serum IFENOR (Normal) Comments: An apparent normal immunofixation pattern. :51 UPEP (79206) Comments: PATIENT NOT FASTINGPERFORMED BY: [employer] [facility] [id number] Please note: SPRCS (Normal) Comments: Protein electrophoresis scan will follow via computer, mail, orcourier delivery. M-Rene, % Not Observed % (Normal) Gamma Globulin, U 12.1 % (Normal) Beta Globulin, U 23.3 % (Normal) Azdjx-7-Tdjbljpz, U 28.7 % (Normal) Hyxmp-0-Kxwlumew, U 4.1 % (Normal) Albumin, U 31.8 % (Normal) Protein,Total,Urine 42.0 mg/dL (Abnormal) Range: 0.0-15.0 :51 P-ANCA & C-ANCA (ANCA Comments: PATIENT NOT FASTINGPERFORMED BY: Nopsec70 [facility] [id number] PROFILE) 28564 x2 and 16395 x2 Mitochondrial (M2) Antibody <20.0 {Units} (Normal) Range: 0.0-20.0 Comments: Negative 0.0 - 20.0 Equivocal 20.1 - 24.9 Positive >24.9 . Mitochondrial (M2) Antibodies are found in 90-96% of patients with primary biliary cirrhosis. 81-Mtv-182605:51 C-REACT PROT HIGH SENS(hsCRP) Comments: PATIENT NOT FASTINGPERFORMED BY: [facility]6370 [facility] [id number] (32473) C-Reactive Protein, Cardiac 94.10 mg/L (Abnormal) Range: 0.00-3.00 Comments: Relative Risk for Future Cardiovascular Event Low <1.00 Average 1.00 - 3.00 High >3.00 84-Ubh-673625:32 DNA ANTIBODY-NATV/DBL ST (25006) Comments: PATIENT NOT FASTINGPERFORMED BY: [facility]6370 [facility] [id number] test code 162745 Anti-DNA (DS) Ab Qn <1 {IU/mL} (Normal) Range: 0-9 Comments: Negative <5 Equivocal 5 - 9 Positive >9 10-Thl-567688:32 MICROALBUMIN: CREATININE Comments: PATIENT NOT FASTINGPERFORMED BY: [facility]6370 [facility] [id number] Information: [id number],[id number] RATIO (10601) AND (64083) Microalb/Creat Ratio 28.7 {mg/g_creat} (Normal) Range: 0.0-30.0 Microalbumin, Urine 76.1 ug/mL (Abnormal) Range: 0.0-17.0 Creatinine, Urine 265.3 mg/dL (Normal) Range: 16.0-327.0 99-Irr-867009:32 RPR (RAPID PLASMA REAGIN) Comments: PATIENT NOT FASTINGPERFORMED BY: [facility]6370 [facility] [id number] (51036) RPR Non Reactive (Normal) 49-Req-402063:26 Systemic Lupus Profile A Comments: PATIENT NOT FASTINGPERFORMED BY: [facility]6370 [facility] [id number] Information: [id number] Anti-DNA (DS) Ab Qn <1 {IU/mL} Range: 0-9 (Normal) Comments: Negative <5 Equivocal 5 - 9 Positive >9 Sjogren's Anti-SS-B 0.4 {AI} (Normal) Range: 0.0-0.9 Sjogren's Anti-SS-A <0.2 {AI} (Normal) Range: 0.0-0.9 Antichromatin Antibodies 0.3 {AI} (Normal) Range: 0.0-0.9 RA Latex Turbid. 13.0 {IU/mL} Range: 0.0-13.9 (Normal) Tariq Antibodies <0.2 {AI} (Normal) Range: 0.0-0.9 TOWBOAT ENGINEER Antibodies 2.7 {AI} Range: 0.0-0.9 (Abnormal) Written Authorization WAR (Normal) Comments: PATIENT NOT FASTINGPERFORMED BY: [employer] Slhdzn7326 [facility] [id number] 0:26 Comments: Written Authorization Received.Authorization received from MICHELLE REAVES MD 41-04-1156Izsdod by Devi Biswas 04-Cmi-386029:26 EB ANTIBODY VIRAL CAPSID Comments: PATIENT NOT FASTINGPERFORMED BY: Meilapp.comSt. Luke's Warren HospitalKpphta1301 [facility] [id number] (14453) X2 Interpretation: SPRCS (Normal) Comments: EBV Interpretation [...] <36.0 Equivocal 36.0 - 43.9 Positive >43.9 45-Qzz-404949:26 CALCIFIDIOL (56254) VIT D 25 Comments: PATIENT NOT FASTINGPERFORMED BY: [facility]il[employer].comCarrie Tingley HospitalQognfw7445 [facility] [id number] Vitamin D, 25-Hydroxy 48.4 ng/mL (Normal) Range: 30.0-100.0 Comments: Vitamin D deficiency has been defined by the Walker ofWilson Healthcine and an Endocrine Society practice guideline as alevel of serum 25-OH vitamin D less than 20 ng/mL (1,2).The Endocrine Society went on to further define vitamin Dinsufficiency as a level between 21 and 29 ng/mL (2).1. IOM (Walker of Medicine). 2010. Dietary reference intakes for calcium and D. [place]: The National Academies Press.2. Clari MF, Jose NC, Ash NETTLES, et al. Evaluation, treatment, and prevention of vitamin D deficiency: an Endocrine Society clinical practice guideline. JCEM. 2010; 96(7):1911-30. 03-Jhd-190416:26 Folate (76158) Comments: PATIENT NOT FASTINGPERFORMED BY: [facility]lyB[facility] HospitalAjiulm8590 [facility] [id number] Folate (Folic Acid), Serum 8.4 ng/mL (Normal) Comments: A serum folate concentration of less than 3.1 ng/mL isconsidered to represent clinical deficiency. 41-Udl-172906:26 VITAMIN B-12 (CYANOCOBALAMIN) Comments: PATIENT NOT FASTINGPERFORMED BY: [employer] Vywouo7191 [facility] [id number] (39559) Vitamin B12 280 pg/mL (Normal) Range: 211-946 44-Sbu-473785:26 TSH (74251) Comments: PATIENT NOT FASTINGPERFORMED BY: [employer] Xzmoqj3708 [facility] [id number] TSH 1.730 {uIU/mL} (Normal) Range: 0.450-4.500 57-Hjq-841711:26 SED RATE ERYTHROCYTE (05442) Comments: PATIENT NOT FASTINGPERFORMED BY: LabCoSt. Luke's Warren HospitalRpnwuq6560 [facility] [id number] Sedimentation Rate-Westergren 48 mm/h (Abnormal) Range: 0-32 54-Frv-725909:26 RHEUMATOID FACTOR-QUANT (20480) Comments: PATIENT NOT FASTINGPERFORMED BY: [facility] Kjbwbd8887 [facility] [id number] RA Latex Turbid. 13.3 {IU/mL} (Normal) Range: 0.0-13.9 63-Wmi-108672:26 METABOLIC PANEL, Comments: PATIENT NOT FASTINGPERFORMED BY: LabCoSt. Luke's Warren HospitalVefsnx9465 [facility] [id number] Information: [id number] COMPREHENSIVE (99357) ALT (SGPT) 21 [iU]/L (Normal) Range: 0-32 [...] Glucose, Serum 101 mg/dL (Abnormal) Range: 65-99 11-Rks-478477:26 C-REACTIVE PROTEIN (88878) Comments: PATIENT NOT FASTINGPERFORMED BY: [employer] Wykvsi0820 [facility] [id number] C-Reactive Protein, Quant 157.4 mg/L (Abnormal) Range: 0.0-4.9 :26 CBC (AUTO) (52490) Comments: PATIENT NOT FASTINGPERFORMED BY: [employer] Zvivki7740 [facility] [id number] Platelets 275 {x10E3/uL} (Normal) Range: 150-379 RDW 13.4 % (Normal) Range: 12.3-15.4 MCHC 33.9 g/dL (Normal) Range: 31.5-35.7 MCH 29.6 pg (Normal) Range: 26.6-33.0 MCV 87 fL (Normal) Range: 79-97 Hematocrit 39.2 % (Normal) Range: 34.0-46.6 Hemoglobin 13.3 g/dL (Normal) Range: 11.1-15.9 RBC 4.50 {x10E6/uL} (Normal) Range: 3.77-5.28 WBC 13.8 {x10E3/uL} (Abnormal) Range: 3.4-10.8 :26 KWAN (ANTINUCLEAR ANTIBODY) Comments: PATIENT NOT FASTINGPERFORMED BY: [email or web address] [id number] [facility] [id number] (31489) KWAN Direct Positive (Abnormal) 17-Kub-075698:21 Sed Rate Erythrocyte (92891) Comments: PATIENT NOT FASTINGPERFORMED BY: [email or web address] [id number] [facility] [id number] Sedimentation Rate-Westergren 20 mm/h (Normal) Range: 0-32 81-Ycb-237086:21 Metabolic Panel, Comprehensive Comments: copy to Dr. sanchez; PATIENT NOT FASTINGPERFORMED BY: [employer] [id number] [address] [facility] [id number] (05231) ALT (SGPT) 23 [iU]/L (Normal) Range: 0-32 [...] Glucose, Serum 112 mg/dL (Abnormal) Range: 65-99 35-Wya-230008:21 CBC, Platelets & Auto Comments: PATIENT NOT FASTINGPERFORMED BY: [employer] [id number] [facility] [id number] Information: [id number] Diff (87727) Immature Grans (Abs) 0.0 {x10E3/uL} (Normal) Range: [...] 3.77-5.28 WBC 11.0 {x10E3/uL} (Abnormal) Range: 3.4-10.8 55-Dtw-869769:21 Lipase (59390) Comments: PATIENT NOT FASTINGPERFORMED BY: [facility]CoSt[facility] Warren HospitalTexaue1314 [facility] [id number] Lipase, Serum 33 U/L (Normal) Range: 0-59 56-Pzd-539236:23 GALLBLADDER See Note (Normal) Comments: Test performed at:[facility] [address] [place], [place] [id number] Comments: Patient: SANDRA RATLIFF : 1980 (34/F) Acct Num: [id number] Phys: Vi Sanchez MD Unit Num: [id number] Loc: [facility] Specimen: [id number] Received: 02/02/151541 Spec Type: GALL BLADDE TISSUES [...] average thickness andis free of mass lesions. Copping Machine Operator sections of the gallbladder and the cystic duct are submitted in one cassette. / AM: 02/03/15 TC:3 CPT: 8 8304 HEADER OPERATION: Lap, cholecystectomy PRE-OP DIAGNOSIS: Calculus of gallbladder with acute cholecystitis TISSUE SUBMITTED: Gallbladder MICROSCOPIC DESCRIPTION Slides are reviewed. MICROSCOPIC DIAGNOSIS Gallbladder, cholecystectomy: Chronic cholecystitis and cholelithiasis. AM: 02/04/[address] [facility] 02/04/15 <signature on file> 54-Ttv-732934:10 ,Urine Comments: Test performed at:[facility] [address] [place], [place] [address] ; ordered by another doctor HCGUQUAL Negative {Negative} (Normal) Comments: Very dilute urine specimens, as indicated by a low specificgravity, may not contain cash applications representative levels of hCG.If is still suspected, a first morning urinespecimen should be collected 48 hours later and tested. 11-Fin-41494:45 Basic Metabolic Profile (BMP) Comments: Test performed at:[facility] [address] [place] [address] GAP 10 (Normal) Range: 5-15 CO2 26.0 [...] Comments: Please note revised CREATININE reference range xekbjwlrq03/22/2015. BUN 13 mg/dL (Normal) Range: 7-18 GLU 112 mg/dL (Abnormal) Range: 70-110 Comments: Fasting Glucose result from 110 to <126 mg/dLsuggests IMPAIRED HOMEOSTASIS per A.D.A. criteria. 60-Wuo-97326:45 CBC W/Diff, Automated Comments: Test performed at:[facility] [address] [place], [place] [address] Absolute Lymph 4.26 {X10_3/ul} (Normal) Range: 0.83-4.51 [...] Range: 4.4-11.0 :45 Lipase Comments: Test performed at:[facility] [address] [place] [address] LIPASE 136 U/L (Normal) Range: 73-393 :45 Liver Profile Comments: Test performed at:[address] [place] [address] D BILI < 0.05 mg/dL [...] 02/01/15How was Urine Obtained? CLEAN CATCHTest performed at:[facility] [address] [place] [address] HCGUQUAL Negative {Negative} (Normal) Comments: Very dilute urine specimens, as indicated by a low specificgravity, may not contain cash applications representative levels of hCG.If is still suspected, a first morning urinespecimen should be collected 48 hours later and tested. :45 Urinalysis, Complete Comments: Order Date: 02/01/15How was Urine Obtained? CLEAN CATCHTest performed at:[facility] [address] [place] [address] MUCUS, URINE 0 SEEN {/hpf} [...] Clear (Normal) COLOR Yellow (Normal) :45 CALCIFIDIOL (13001) VIT D 25 Comments: PATIENT NOT FASTINGPERFORMED BY: [facility] [id number] Vitamin D, 25-Hydroxy 42.1 ng/mL (Normal) Range: 30.0-100.0 Comments: Vitamin D deficiency has been defined by the Walker ofMedicine and an Endocrine Society practice guideline as alevel of serum 25-OH vitamin D less than 20 ng/mL (1,2).The Endocrine Society went on to further define vitamin Dinsufficiency as a level between 21 and 29 ng/mL (2).1. IOM (Walker of Medicine). 2010. Dietary reference intakes for calcium and D. [place]: The National Academies Press.2. Clari MF, Jose NC, Ash NETTLES, et al. Evaluation, treatment, and prevention of vitamin D deficiency: an Endocrine Society clinical practice guideline. JCEM. 2010; 96(7):1911-30. :45 Metabolic Panel, Basic Comments: PATIENT NOT FASTINGPERFORMED BY: [employer] [facility] Srnkay2237 [address] [facility] [id number] Information: [id number] (52966) Calcium, Serum 9.6 mg/dL (Normal) Range: 8.7-10.2 [...] Glucose, Serum 100 mg/dL (Abnormal) Range: 65-99 21-Ezv-366632:50 Rapid Flu (16457 x 2) Influenza A Ag neg (Normal) :29 LIPID PANEL (68296) Comments: PATIENT WAS FASTINGPERFORMED BY: [employer] Tgnnap8392 [facility] [id number] Information: [id number] LDL/HDL Ratio 2.6 {ratio_units} (Normal) Range: 0.0-3.2 [...] Metabolic Panel, Comments: PATIENT NOT FASTINGPERFORMED BY: [employer] TV NetworksCarrie Tingley HospitalYyfuoj0646 [facility] [id number] Information: [id number] Comprehensive (37087) ALT (SGPT) 25 [iU]/L (Normal) Range: 0-32 [...] 87 mg/dL (Normal) Range: 65-99 12-Jan-20139:50 CALCIFEDIOL (27382) Comments: PATIENT NOT FASTINGPERFORMED BY: LabCoSt. Luke[facility] Warren HospitalOvajtp9915 [facility] [id number] Vitamin D, 25-Hydroxy 42.6 ng/mL (Normal) Range: 30.0-100.0 Comments: Vitamin D deficiency has been defined by the Walker ofMedicine and an Endocrine Society practice guideline as alevel of serum 25-OH vitamin D less than 20 ng/mL (1,2).The Endocrine Society went on to further define vitamin Dinsufficiency as a level between 21 and 29 ng/mL (2).1. IOM (Walker of Medicine). 2010. Dietary reference intakes for calcium and D. [place]: The National Academies Press.2. Clari MF, Jose [place], Ash NETTLES, et al. Evaluation, treatment, and prevention of vitamin D deficiency: an Endocrine Society clinical practice guideline. JCEM. 2010; 96(7):1911-30. :08 CATU tDOP 108 ug/L (Normal) tDOP24 255 {ug/24_hr} (Normal) Range: 0-510 Comments: TESTING PERFORMED AT [facility]. ORIGINAL REPORT ON FILE IN LAB CONTAINS ADDITIONAL TEST SITE INFORMATION. tEPIN24 < 2 {ug/24_hr} (Normal) Range: 0-20 tNORE 16 ug/L (Normal) tNORE24 38 {ug/24_hr} (Normal) Range: 0-135 tEPIN < 1 ug/L (Normal) :08 KWESI 20.48 ug/dL (Normal) Range: 3.09-22.40 Comments: Adult (AM) 4.30 - 22.40 ug/dL Adult (PM) 3.09 - 16.66 ug/dL :08 DHEA 26.2 ug/dL (Abnormal) Range: 98.8-340.0 68-Odk-749777:08 METAU tMETA 24 ug/L (Normal) tMETA24 57 {ug/24_hr} (Normal) Range: 45-290 Comments: (Hypertensive) >17 years 11 months: 35 - 460 . Please note reference interval change tNORM24 219 {ug/24_hr} (Normal) Range: 82-500 Comments: (Hypertensive) >17 years 11 months: 110 - 1050 tNORM 93 ug/L (Normal) 51-Ycm-131891:08 MISC . (Normal) Comments: TEST RESULT ORIBHV55-Oyubgqswdpmvxnymgyj, [place] 17 [place] Pregnenolone, Serum MS < 10 ng/dL Reference Range: Adults: 53 - 357 [facility] ORIGINAL REPORT ON FILE IN LAB CONTAINS ADDITIONAL TEST SITE INFORMATION. :08 PROL 10.2 ng/mL (Normal) Range: 4.8-23.3 :08 TESTOF <0.2 pg/mL (Normal) Range: 0.0-2.2 Comments: Performed at: - [address] [id number] Director: Davide Jordan MD, Phone: [phone] at: - LabCoL[place] [address]Odg Director: Andra Reyes MD, Phone: [phone] 44-Ymj-232585:08 VMA tVMA24 3.1 {mg/24_hr} (Normal) Range: 0.0-7.5 [...] 7-18 GLU 92 mg/dL (Normal) Range: 70-110 54-Wwy-112497:56 VIT D,25 11780 33.7 ng/mL (Normal) Range: 30.0-100.0 Comments: Vitamin D deficiency has been defined by the Walker ofWilson Healthcine and an Endocrine Society practice guideline as alevel of serum 25-OH vitamin D less than 20 ng/mL (1,2).The Endocrine Society went on to further define vitamin Dinsufficiency as a level between 21 and 29 ng/mL (2).1. IOM (Walker of Medicine). 2011. Dietary reference intakes for calcium and D. [place]: The National Academies Press.2. Clari MF, Jose [place], Ash NETTLES, et al. Evaluation, treatment, and prevention of vitamin D deficiency: an Endocrine Society clinical practice guideline. JCEM. 2010; 96(7): 1911-30.Performed at: [facility] [address] [id number] Director: Andra Reyes MD, Phone: [phone] 81-Cce-366371:57 MICROALB:CRE UR MALB:CREAT 25.7 {mg/g_CRE} (Normal) MICROALBUMIN,UR 40.9 mg/L (Normal) UR CREAT 159.1 mg/dL (Normal) 2-Nog-133811:09 MYOCARD PERF STRESS/REST MULT Radiology Report See Note (Normal) Comments: EXERCISE MYOCARDIAL PERFUSION SCAN OPIJLVDBruwpc-itaz-agq with a history of hypertension and abnormal EKG. UDRPBUVZZ73 mCi of Sestamibi was injected at rest. [...] HARGROVE,Stephane on 03/10/11 1446 Sign by: Tamar HARGROVE,Alto 1-Bfh-666971: VIT D,25 27375 28.7 ng/mL Range: 32.0-100.0 10 (Abnormal) Comments: Recent studies consider the lower limit of 32.0 ng/mL to guy threshold for optimal health.Rakan BOWENS. J Nutr. 2004;135(2):317- 22.Performed at: [place] [address] Director: Andra Reyes MD, Phone: [phone] TSH 2.62 {uIU/mL} Range: 0.358-3.74 :41 (Normal) [...] 7-18 GLU 78 mg/dL (Normal) Range: 70-110 25-Ucz-02735:57 CBCD,SMEAR DIFF RED CELL MORPH SeeNote {NORMAL} [...] BETA STREPTOCOCCUS :28 Rapid Strep Test, Office (64471) Rapid Strep Test, Office Negative (Normal) 9-Sxe-494194:39 HCG QUANT. 99952 m[iU]/mL (Abnormal) 9-Vhg-945971:39 ,SERUM HCGSQUAL SeeNote m[iU]/mL (Normal) Range: 0-9 [...] of hypertension Planned Observations Food Allergy Profile (45869)Indication: Allergic to food (Renamed from Food allergy) On: :28 Request T4, FREE (THYROXINE) (15849)Indication: Abnormal thyroid blood test On: :22 Request TSH (60901)Indication: Abnormal thyroid blood test On: :22 Request CALCIFIDIOL (28442) VIT D 25Indication: Vitamin D deficiency, unspecified On: :22 Request CBC (Auto) (87635)Indication: KWAN positive On: :21 Request Metabolic Panel, Comprehensive (26673)Indication: KWAN positive On: :21 Request Thin prep Pap (92503) (no STD testing)Indication: Well woman exam (Renamed from Encounter for well woman exam) On: :13 Request PT (Prothrobim Time) (38719)Indication: Preop examination On: 82-Vgo-116551:36 Request CBC WITH MANUAL DIFF (17668)Indication: Preop examination On: 16-Bta-118373:36 Request T4, FREE (THYROXINE) (78741)Indication: Abnormal thyroid blood test On: : Request TSH (00267)Indication: Abnormal thyroid blood test On: : Request CALCIFIDIOL (53635) VIT D 25Indication: Vitamin D deficiency, unspecified On: : Request MICROALBUMIN: CREATININE RATIO (82064) AND (54313)Indication: Proteinuria On: Request METABOLIC PANEL, COMPREHENSIVE (16761)Indication: Antiphospholipid syndrome On: Request CBC with auto diff (86147)Indication: Antiphospholipid syndrome On: Request LIPOPROTEIN, BLD, BY NMR (38583)Indication: Hyperlipidemia, unspecified hyperlipidemia type On: : Request MICROALBUMIN: CREATININE RATIO (09420) AND (95212)Indication: Proteinuria On: 12-Xzl-635501:10 Request LEUKOCYTE COUNT, FECAL (53158)Indication: Abdominal pain, acute On: 42-Dkt-526129:10 Request OVA & PARASITE DIR SMEAR (66967)Indication: Abdominal pain, acute On: 12-Nqc-555975:10 Request Clostridium difficile Toxin A+B, EIA (18621)Indication: Abdominal pain, acute On: 25-Kce-907816:10 Request AUTUMN CULTURE-STOOL (71809)Indication: Abdominal pain, acute On: 50-Jah-143645:10 Request Rapid Flu (72510 x 2)Indication: Flu-like symptoms On: 02-Bzt-386698:01 Request EB ANTIBODY NUCLR ANTIGN (08263)Indication: Fatigue On: 72-Fod-206216:01 Request Rapid Flu (83676 x 2)Indication: Fever and chills On: 51-Uae-655580:00 Request POTASSIUM SERUM (24893)Indication: Hypokalemia On: 7-Yan-256698:48 Request PROLACTIN (50538)Indication: Amenorrhea On: 9-Rnk-212033:56 Request DHEA-S (DEHYDROEPIANDROSTERONE SULFATE) (75253)Indication: Amenorrhea On: 6-Glf-156648:55 Request TESTOSTERONE FREE (06452)Indication: Amenorrhea On: :55 Request 17-HYDROXYPREGNENOLONE (08752)Indication: Amenorrhea On: :52 Request CORTISOL FREE (14244)Indication: Elevated blood-pressure reading without diagnosis of hypertension On: :49 Request METANEPHRINES - URINE (15432)Indication: Elevated blood-pressure reading without diagnosis of hypertension On: :49 Request CATECHOLAMINES TOTAL, URINE (04915)Indication: Elevated blood-pressure reading without diagnosis of hypertension On: :49 Request URINE VMA (09835)Indication: Elevated blood-pressure reading without diagnosis of hypertension On: :49 Request Metabolic Panel, Basic (98362)Indication: Stress reaction On: :29 Request MICROALBUMIN: CREATININE RATIO (49301) AND (25388)Indication: Unspecified Diagnosis On: 28-Jlr-405872:18 Request CALCIFEDIOL (60125)Indication: Elevated blood-pressure reading without diagnosis of hypertension On: 15-Hfn-528438:14 Request TSH (09555)Indication: Elevated blood-pressure reading without diagnosis of hypertension On: 98-Ord-062606:13 Request METABOLIC PANEL, COMPREHENSIVE (31925)Indication: Nausea On: :40 Request Lipase (98429)Indication: Nausea On: 58-Aea-653308:40 Request TEST - SERUM QUANTITATIVE (HCG) (17873)Indication: Amenorrhea On: :40 Request Amylase (04743)Indication: Nausea On: 77-Pea-099994:40 Request METABOLIC PANEL, COMPREHENSIVE (40972)Indication: Palpitations On: :47 Request CBC WITH MANUAL DIFF (54888)Indication: Palpitations On: :47 Request TSH (73103)Indication: Palpitations On: :47 Request AUTUMN CULTURE-OTHER (82320)Indication: Acute pharyngitis On: :28 Request BHCG (HUMAN CHORIONIC GONADOTROPIN - BETA) (00322)Indication: Amenorrhea On: 42-Xin-322120:22 Request HCG (HUMAN CHORIONIC GONADOTROPIN) (23934)Indication: Amenorrhea On: 34-Xks-499682:22 Request Planned Encounters Medical; TIFFANIE 2 Month FU - On: 26-Jun-2018 9:15 [facility] Michelle Reaves MD, MD, Dana M Planned Procedures MRI OF LEFT KNEE WITHOUT CONTRAST On: 20-Feb-2018 Intent (97438)By: Michelle Reaves MD Comments: will plan for 4 weeks. Michelle HARGROVE DRAIN/INJECT MAJOR JOINT OR BURSA On: 10-Feb-2018 Intent (41305)By: Michelle Reaves MD Comments: 2 cc Marcaine lot# [id number] exp 1 cc kenalog lot# [id number] exp rte: left knee intra articular dose: as above given by:Dr. Jensen Hall LPN MD, Dana M Radiology - Knee - Left - Weight On: 07-Feb-2018 Intent BearingBy: Michelle Reaves MD, MD, Dana M SPECIMEN HNDLNG/TRNSPRT, OFFC > LAB On: 18-Jun-2016 Intent (81106)By: Michelle Reaves MD, MD, Dana M SPECIMEN HNDLNG/TRNSPRT, OFFC > LAB On: 04-Jun-2016 Intent (66624)By: Michelle Reaves MD, MD, Dana M Radiology - Small Bowel Series On: 18-Nov-2015 Intent (88064)By: Michelle Reaves MD, MD, Dana M Radiology - KUBBy: Kirsten Arias CNP On: 31-Aug-2015 Intent Comments: call to MCiesa INFUSION, NORMAL SALINE SOLUTION , On: 31-Aug-2015 Intent 1000 CC (Special Coverage Comments: 1000 ccIVleft antecub.tolerated well22 [facility] 57-007jtexp 03/2017RUTH steen Instructions Apply. See MCM: [...] read. ELECTROCARDIOGRAM, COMPLETE (ECG) On: 19-Jan-2014 Intent (03920)By: Michelle Reaves MD, MD, Dana M Eprescribed prescriptions (G8553)By: On: 02-Jun-2013 Intent Long SENIOR ASSISTANT MANAGER, Kathy L EKG (61500)By: Michelle Reaves MD On: 27-Jan-2013 Intent Michelle Reaves MD Comments: see scanned document of test done to see results reviewed today with patient Eprescribed prescriptions (G8553)By: On: 27-Jan-2013 Intent Long SENIOR ASSISTANT MANAGER, Kathy L TDAP VACCINE >7 IM (05711)By: Jensen On: 30-Apr-2011 Intent Michelle HARGROVE MD, Dana M FLU VAC, SPLIT, >3 YEARS, INTRAMUSC On: 30-Apr-2011 Intent (68781)By: PHILLIP Leigh Comments: Lot #:[id number] date:mount given:0.5mlRoute: IMSite given:left deltoid Given by: HBryan IMMUNIZ ADMNIN, 1 VAC, SNGL/COMBO On: 30-Apr-2011 Intent (93067)By: PHILLIP Leigh Nuclear Stress Test/Stress On: 05-Mar-2011 Intent SPECT/TreadmillBy: Kirsten Arias CNP ELECTROCARDIOGRAM, COMPLETE (ECG) On: 05-Mar-2011 Intent (01051)By: Kirsten Arias CNP Bio Z (09831)By: Kirsten Arias CNP On: 05-Mar-2011 Intent Holter Moniter (99478)By: Pop HORAN, On: 29-Nov-2010 Intent Atiya EKG (87428)By: Indu Mai LPN On: 29-Nov-2010 Intent Comments: [...] Advance Directives Name Dates Details Immunization Registry [place] - Effective on Effective: 05-Jul-201707/05/2017. Expiration date [...] fever. Note for Insect bite/sting: was in [place]- she got lots of bites not sure [...] Nutrition: balanced diet and supplemental vitamins. 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
--- OUTSIDE RECORDS SUMMARY | 2018-08-05 17:29 | XMS RPT_ITS | Continuity of Care Document ---
:1980 Author Organization [facility] Address [address] [address] Phone Care Team Providers Name Role Phone [...] grade fever. Dr. 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 rightn ow no [...] saw Dr. Josh Lemus in vasuclar at [facility] and Dr. Jessica jama at [facility] severe preeclampsia Status: Active Hives (L50.9, [...] walk not feel need at much to [facility]. 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 Status: Inactive as of 01-Mar-2014 Elevated [...] 686.9) Comments: went into cellutiis after at [facility] in [place]. will do soap cleanses [...] resolve on atb and will follow up [facility] ent Status: Resolved as of 10-May-2017 [...] Note; NOTES: [facility] [address] [place] [address] OFFICE VISIT Date of Service: 05/06/18 MR#: [id number] Acct: [id number] Name: SANDRA RATLIFF Rep #: [id number] : 1980 Provider: Ofe Jay DO Age/Sex: 37/F Location: [facility] [place] [place]: Signed Intake Intake [...] #10 cap 11/17/15 [Rx] Hydrocodone Bitart/Apap 5-325 [Halsey 5/325] 1 - 2 tab PO Q4H [...] treatment options are d o nothing, injection, TN-EYE eval or knee scope for debridement. We [...] of meniscus of left knee M23.307 05/06/18 5055 <Electronically signed by Ofe Jay DO> Date Ofeshari Jay Darby Signature: Date (if applicable) CC: 03-Apr-2018 Lower Ext Joint Only (Routine) Result: Comments: See Note; NOTES: [facility] Imaging Services [address] [place] [address] Lower Ext Joint Only (Routine) MR#: [id number] Acct: [id number] Name: SANDRA RATLIFF Rep #: [id number] : 1980 F 37 From: Laurent Amos MD PCP: Michelle Reaves MD Status: REG CLI Study: Lower Ext Joint Only (Routine) Date of Exam: 04/03/18 Exam# [id number] Ordering Dr: Michelle Reaves MD STUDY: MRI [...] Service support , CC: Michelle Reaves MD Offshoring Manager: Signed 31-Mar-2018 PT D/C Summary (1) Result: Comments: See Note; NOTES: [facility] Therapy [facility] [address] [place] [address]. [address] [place], [place] [id number] Fax REHABILITATION SERVICES [facility] SUMMARY MR#: [id number] Acct: [id number] Name: SANDRA RATLIFF Rep #: [id number] : 1980 37 From: Keri Mack PT, Cert. MDT Referring Dr.: Michelle Reaves MD Status: REG RCR Insurance: [facility] SELF PAY INSURANCE HP - PT D/C [...] please feel free to call me at [phone]. Thank you for the referral of this patient. Sincerely, Keri Mack <Electronically signed by Keri Mack PT, Cert. MDT> 03/31/18 1407 CC: Michelle Reaves MD ZELDA Signed 04-Mar-2018 Inital Evaluation (1) - PT Result: Comments: See Note; NOTES: [facility] [address] [facility] [place] [address] Fax REHABILITATION SERVICES INITIAL EVALUATION MR#: [id number] Acct: [id number] Name: SANDRA RATLIFF Rep #: [id number] : 1980 37 From: Keri Mack PT, Cert. 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 Disability: NO. Present symptoms: INSIDE OF LEFT [...] to be FAXED BACK to us at [phone] for Medicare purposes. Please let me know if there are questions or concerns regarding this plan of c are. Physician Signature: Date: <Electronically signed by Keri Mack PT, Cert. MDT> 03/04/18 1248 CC: Michelle Butterfield ZELDA Signed For Medicare only, by signing this I certify the plan of care. Physicians Signature Date 08-Feb-2018 Knee 4 or More Views Result: Comments: See Note; NOTES: [facility] Imaging Services [address] [place] [address] Knee 4 or More Views MR#: [id number] Acct: [id number] Name: SANDRA RATLIFF Rep #: [id number] : 1980 F 37 From: Caity Felix MD PCP: Michelle Reaves MD Status: REG CLI Study: Knee 4 or More Views Date of Exam: 02/08/18 Exam# [id number] Ordering Dr: Michelle Reaves MD STUDY: X-RAY - LEFT KNEE REASON FOR EXAM: Female, 37 years old. [place] pop swelling pain TECHNIQUE: 4 view(s) of [...] Tel , Service support , Fa x [phone] CC: Michelle Reaves MD Offshoring Manager: Signed 22-Nov-2015 Emergency Department Summary Result: Comments: See Note; NOTES: [facility] Medical Records Department [address] [place] [address] Emergency Department Summary MR#: [id number] Acct: [id number] Name: SANDRA RATLIFF Rep #: [id number] : 1980 35 From: Bulmaro Rodriguez MD [...] with Dr. Reaves, return with any problems. [place] diet, fluids. CLINICAL IMPRESSION: Abdominal pain with nausea and diarrhea. DISPOSITION: Home. MD Chase Odom C: Michelle Reaves MD T: NTS JOB: [id number] 11/22/15 2339 <Electronically signed by Bulmaro Rodriguez MD> Date Bulmaro Rodriguez MD Cosigner Signature (If Indicated): Date CC: Michelle Reaves MD Date Dictated: 11/17/15 1240 Date Transcribed: 11/17/15 124 Offshoring Manager: Signed 22-Nov-2015 Small Bowel Series Only Result: Comments: See Note; NOTES: [facility] Imaging Services [address] [place] [address] Verdana 4d Small Bowel Series Only MR#: [id number] Acct: [id number] Name: HER SANDRA MCKEON Rep #: [id number] : 1980 F 35 From: Leigha Colon MD PCP: Michelle Reaves MD Status: REG CLI Study: Small Bowel Series Only Date of Exam: 11/22/15 Exam# [id number] Ordering Dr: Michelle Medina MD STUDY: AIR-CONTRAST [...] spot views were obtained COMPARISON: None. FINDINGS: Burnisher view: The bowel gas pattern is unremarkable [...] at 16:48 EDT Tel , Service support [phone], RAD/Small Bowel Series Only IMPRESSION: Unremarkable study. Electronically Signed: Leigha Colon MD at 16:48 E DT Tel , Service support [phone], CC: Michelle Reaves MD Offshoring Manager: Signed 17-Nov-2015 Discharge Instruction Result: Comments: See Note; NOTES: [facility] Medical Records Department [address] [place] [address] Discharge Instruction 11/17/15 1236 MR#: [id number] Acct: [id number] Name: SANDRA RATLIFF Rep #: [id number] : 1980 35 From: Bulmaro Rodriguez MD PCP: Michelle Reaves MD Status: REG ER ED Disposition - Plan for ED Patient: Disposition: Home or Assisted Living Chief Complaint: Abd Pain Instructions: ED Abdominal Pain, Unknown Cause, (Female), ED Vomiting And Diarrhea, Nonspecific (Adult) Prescriptions: Hydrocodone Bitart/Apap 5-325 [Halsey 5/325] 1 - 2 t ablet PO [...] problems, contact your doctor. Call [facility] ([phone]) or report to the closest [facility] Room. Call 911 if necessary. 11/17/15 1238 <Electronically signed by Bulmaro Rodriguez MD> Date Bulmaro [place] (If Indicated): Date CC: Michelle Reaves MD 17-Nov-2015 Abdomen/Pelvis WITH Contrast Result: Comments: See Note; NOTES: [facility] Imaging Services [address] [place] [address] Verdana 4d Abdomen/Pelvis WITH Contrast MR#: [id number] Acct: [id number] Name : SANDRA RATLIFF Rep #: [id number] : 1980 F 35 From: Isaac Espinoza MD PCP: Michelle Reaves MD Status: [facility] ER Study: Abdomen/Pelvis WITH Contrast Date of Exam: 11/17/15 Exam# [id number] O rdering Dr: Bulmaro Rodriguez MD STUDY: CT ABDOMEN AND PELVIS WITH CONTRAST REASON FOR EXAM: Female, 35 years old. Mid lower abdominal pain. Diarrhea and nausea. RADIATION DOSAGE (If Supplied By [facility]): CTDIvol = ( 18.40 ) [...] is made with prior study dated Ja [facility] 2015. FINDINGS: The visualized lung bases are [...] Isaac Espinoza MD at 12:27 EDT Tel [phone], Service support [phone], CC: Michelle Reaves MD; Bulmaro Rodriguez MD Offshoring Manager: Signed 13-Nov-2015 Operative Report Result: Comments: See Note; NOTES: [facility] Medical Records Department [address] [place] [address] Operative Report MR#: [id number] Acct: [id number] Name: LANNYNITIN Rep #: [id number] : 1980 35 From: Vi Sanchez MD [...] complications. Vi Sanchez MD T: NTS JOB: [id number] 11/13/15939 <Electronically sig shawn by Vi Sanchez MD> Date Vi Sanchez MD Cosigner Signature (If Indicated): Date C C: Michelle Reaves MD; Vi Sanchez MD Date Dictated: 11/07/15910 Date Transcribed: 11/07/15910 Offshoring Manager: Signed 31-Aug-2015 Abdomen Single View Result: Comments: See Note; NOTES: [facility] Imaging Services [address] [place] [address] Verda 4d Abdomen Single View MR#: [id number] Acct: [id number] Name: SANDRA RATLIFF Rep #: [id number] : 1980 F 35 From: Isaac Espinoza MD PCP: Michelle Reaves MD Status: REG CLI Study: Abdomen Single View Date of Exam: 08/31/15 Exam# [id number] Ordering Dr: Kirsten Arias STUDY: X-RAY - [...] Isaac Espinoza MD at 13:18 EST Tel [phone], Service support [phone], RAD/Abdomen Single View IMPRESSION: Normal x-ra y examination of the abdomen and pelvis. Electronically Signed: Isaac Espinoza MD at 13:18 EST Tel [phone], Service support [phone], CC: Kirsten Arias ; Michelle Reaves MD Offshoring Manager: Signed 29-Jul-2015 Transvaginal Non- Result: Comments: See Note; NOTES: [facility] Imaging Services [address] [place] [address] Verdana 4d Transvaginal Non- MR#: [id number] Acct: [id number] Name: SANDRA ZAVALA Rep #: [id number] : 1980 F 35 From: Isaac Espinoza MD PCP: Michelle Reaves MD Status: REG CLI Study: Transvaginal Non- Date of Exam: 07/29/15 Exam# [id number] Orderi ng Dr: Michelle Reaves MD STUDY: [...] Isaac Espinoza MD at 14:01 EST Tel [phone], Service support [phone], CC: Michelle Reaves MD Offshoring Manager: Signed 29-Jul-2015 Pelvic (Non ) Result: Comments: See Note; NOTES: [facility] Imaging Services [address] [place] [address] Verdana 4d Pelvic (Non ) MR#: [id number] Acct: [id number] Name: SANDRA BELLE Rep #: [id number] : 1980 F 35 From: Isaac Espinoza MD PCP: Michelle Reaves MD Status: REG CLI Study: Pelvic (Non ) Date of Exam: 07/29/15 Exam# [id number] Ordering Dr: Michelle Ponce MD STUDY: ULTRASOUND [...] Isaac Espinoza MD at 14:01 EST Tel [phone], Service support [phone], CC: Michelle Reaves MD Offshoring Manager: Signed 25-Jul-2015 Abdomen/Pelvis WITH Contrast Result: Comments: See Note; NOTES: [facility] Imaging Services [address] [place] [address] Verdana 4d Abdomen/Pelvis WITH Contrast MR#: [id number] Acct: [id number] Name : SANDRA RATLIFF Rep #: [id number] : 1980 F 35 From: Isaac Espinoza MD PCP: Michelle Reaves MD Status: REG CLI Study: Abdomen/Pelvis WITH Contrast Date of Exam: 07/25/15 Exam# [id number] Ordering Dr: Michelle Reaves MD STUDY: CT [...] Isaac Espinoza MD at 9:19 EST Tel [phone], Service support [phone], CC: Michelle Reaves MD Offshoring Manager: Signed 07-Jul-2015 Abdomen Limited Result: Comments: See Note; NOTES: [facility] Imaging Services [address] [address] Wichodana 4d Abdomen Limited MR#: [id number] Acct: [id number] Name: JEANNIE RATLIFF Rep #: [id number] : 1980 F 35 From: Leigha Colon MD PCP: Michelle Reaves MD Status: REG CLI Study: Abdomen Limited Date of Exam: 07/07/15 Exam# [id number] Ordering Dr: Michelle Reaves MD STUDY: ABDOMINAL [...] at 16:22 EST Tel , Service support [phone], CC: Michelle Reaves MD Offshoring Manager: Signed 22-Apr-2015 OT Discharge Summary Result: Comments: See Note; NOTES: [facility] [place] [address] [facility] [place] [address] Fax REHABILITATIO N SERVICES DISCHARGE SUMMARY MR#: [id number] Acct: [id number] Name: SANDRA RATLIFF Rep #: [id number] : 1980 34 From: Bernarda De La Vega Referring Dr.: Ofe aJy DO Status: PRE RCR Eval Date: Discharge [...] However, she did make some improvements. Her clinical counselor strength improved from 35 pounds to 70 pounds. She was reporting independence with act ivities of daily living at this time. The patient was last seen on January 11, 2015, no further appointments were indicated. At this time, the patient is discharged. Bernarda De La Vega, OTR/L T: NTS JOB: [id number] <Electronically signed by Bernarda De La Vega > 04/22/15 1057 CC: Signed 10-Feb-2015 Operative Report Result: Comments: See Note; NOTES: [facility] Medical Records Department [address] [place] [address] Operative Report 02/02/15 1305 MR#: [id number] Acct: [id number] Name: [place] SANDRA LAMAS Rep #: [id number] : 1980 34 From: Vi Sanchez MD PCP: Michelle Reaves MD Status: DEP [facility] [place] Y Location: [facility] [place] Report of Operation Date of Procedure: 02/02/15 Pre-Operative Diagno sis: cholelithiasis, cholecystitis Post-Operative Diagnosis: same Surgery/Procedure Performed:: laparoscopic cholecystectomy with cholangiogram photographic equipment technician: NOT,DEFINED Type of Anesthesia:: General Anesthesiologist: Aide [...] Lead Electrocardiogram Result: Comments: See Note; NOTES: [facility] Cardiovascular Services [address] [place], [place] [address] [address] 12 Lead EKG 02/02/15 1129 MR#: [id number] Acct: [id number] Name: ELISABETH RATLIFF Rep #: [id number] : 1980 34 From: Stephane Boyle MD Attending Dr: Vi Sanchez MD Status: [facility] Ordering Dr: Buzz Collins MD Date: 02/02/15 Location: [facility] [place] Sex: F C Admitted: Test Buckley son : PRE OP Blood Pressure : / mmHG Vent. Rate : 074 BPM Atrial Rate : 074 BPM P-R Int : 134 ms QRS Dur : 110 ms QT Int : 378 ms P-R-T Axes : 051 071 046 degrees QTc Int : 419 ms Normal sinus rhythm Normal ECG No previous ECGs available Confirmed by STEPHANE BOYLE MD ([id number]), image editor JASMIN RAMOS ([id number]) on 02/04/2015 10:20:06 AM Referred By: LALO Confirmed By:STEPHANE BOYLE MD 1020 Date Stephane Boyle MD CC: Michelle Reaves MD Date Dictated: 02/02/15 1129 Date Transcribed: 02/02/15 112 Offshoring Manager: Signed 04-Feb-2015 Emergency Department Summary Result: Comments: See Note; NOTES: [facility] Medical Records Department [address] [place] [address] Emergency Department Summary MR#: [id number] Acct: [id number] Name: SANDRA BELLE Rep #: [id number] : 1980 34 From: Naldo Schaeffer MD PCP: Michelle Reaves MD Status: [facility] ER DATE OF SERVICE: 02/01/2015 CHIEF [...] C: Michelle Reaves MD T: NTS JOB: [id number] 02/04/15 0552 <Electronically signed by Naldo Schaeffer MD> Date Naldo quintanilla MD CC: Michelle Reaves MD Date Dictated: 02/01/15536 Date Transcribed: 02/01/15536 Offshoring Manager: Signed 02-Feb-2015 Discharge Instruction Result: Comments: See Note; NOTES: [facility] Medical Records Department [address] [place] [address] Instructions for Home/Discharge Instructions 02/02/15 1305 MR#: [id number] ct: [id number] Name: SANDRA RATLIFF Rep #: [id number] : 1980 34 From: Vi Sanchez MD PCP: Michelle Reaves MD Status: REG [facility] [place] Discharge Diet: No Restrictions - drink plenty [...] for date and time, thank you 02/02/15 7160 <Electronically deangelo d by Vi Sanchez MD> Date Vi Sanchez MD CC: Michelle Reaves MD 02-Feb-2015 History and Physical Exam Result: Comments: See Note; NOTES: [facility] Medical Records Department [address] [place] [address] History and Physical 02/02/15 1155 MR#: [id number] Acct: [id number] Name: SANDRA RATLIFF Rep #: [id number] : 1980 34 From: Vi Sanchez MD PCP: Michelle Reaves MD Status: REG [facility] [place] Y Location: [place] [address] History and Physical - Blank Date of Admission: 02/02/15 P [facility] Provider: Dr. Reaves History of Present Illness: [...] Morbid obesity, class III Past Surgical History: [place] teeth extraction C section 2010 Past injuries: [...] 77 / minute Resp: 18 per min [place] BP sittin / 83 General: well developed, [...] 01-Feb-2015 Gallbladder Result: Comments: See Note; NOTES: [facility] Imaging Services [address] [place] [address] Ultrasound Report MR#: [id number] Acct: [id number] Name: SANDRA RATLIFF Rep #: : 1980 F 34 From: Deonte Woods DO PCP: Michelle Reaves MD Status: REG CLI Study: Gallbladder Date of Exam: 02/01/15 Exam# [id number] Ordering Dr: Michelle Reaves MD STUDY: ABDOMINAL [...] Deonte Woods DO at 17:18 EDT Tel [phone], Service suppor t [phone], N.B. : The above information has been verbally conveyed by Deonte Woods DO to Michelle Reaves MD, Referring Physician, on 02/01/2015 17:24:35 (ET). CC: Michelle Reaves MD Offshoring Manager: Signed 01-Feb-2015 Discharge Instruction Result: Comments: See Note; NOTES: [facility] Medical Records Department [address] [place] [address] Discharge Instruction 02/01/15 0534 MR#: [id number] Acct: [id number] Name: SANDRA RATLIFF Rep #: [id number] : 1980 34 From: Naldo Schaeffer MD [...] unex pected problems, contact your doctor. Call [facility] ([phone]) or report to the closest Emergency Room. Call 911 if necessary. 02/01/15 0535 <Electronically signed by Abdullahi Schaeffer MD> Date Naldo Schaeffer MD Cosigner Signature (If Indicated): Date CC: Michelle Reaves MD 18-Nov-2014 Initial Evaluation - OT Result: Comments: See Note; NOTES: [facility] Occupational Therapy Health[address] [place] [address] Fax REHABILITATION SERV ICES INITIAL EVALUATION MR#: [id number] Acct: [id number] Name: SANDRA RATLIFF Rep #: [id number] : 1980 34 From: Bernarda De La Vega Referring DrMagdy: Ofe Jay DO Status: REG RCR Insu elly: [facility] Date: DATE OF SERVICE: PHYSICIAN: [...] Right ulnar deviation 10, left 30. Right clinical counselor strength is 35 pounds, left is 70 [...] The patient will demonstrate increase in right clinical counselor strength to 65 pounds or greater to [...] De La Vega, OTR/L T: EMILY JOB: [id number] <Electronically signed by Bernarda De La Vega & #62; 11/18/14 0927 CC: Signed For Medicare only, by signing this I certify the plan of care. Physicians Signature Date 04-Nov-2014 Wrist min 3 Views Result: Comments: See Note; NOTES: [facility] Imaging Services [address] [place] [address] Radiology Report MR#: [id number] Acct: [id number] Name: SANDRA RATLIFF Rep #: [id number] : 1980 F 34 From: Catrachito Wren MD PCP: Michelle Reaves MD Status: REG CLI Study: Wrist min 3 Views Date of Exam: 11/04/14 Exam# [id number] Ordering Dr: Ofe Jay DO STUDY: X-RA [...] MD at 14:57 EDT , Service support [phone], RAD/Wrist min 3 Views IMPRESSION: Normal x-ray examination of the wrist. Electronically Signed: Catrachito Wren MD at 14:57 EDT , Service support [phone], Fax CC: Ofe Jay DO; Michelle Reaves MD Offshoring Manager: Signed Immunization Name Dates Details Tdap (7 years and up) on: 30-Jun-2017 Comments: [facility] Family History Unknown Family Member Name Dates Details Brother 1 Comments: healthy Status: Active Father Comments: hx. [place] (age 50) CABGx3, heart disease Status: Active [...] use. 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 Aries [phone] Status: Active Exercise History: Exercises occasionally. Comments: [...] kg/m2 Body Surface Area Calculated 2.55 m2 00-Qvc-54969:17 Temperature 97.9 f Comments: Method: Temporal Pulse [...] in this mix are: Blue mussel Fish [place] Shrimp Tuna EGG, WHOLE <0.10 kU/L (Normal) CHOCOLATE <0.10 kU/L (Normal) Comments: Performed at: [address] [id number] Director: Davide Jordan MD, Phone: [phone] BEEF <0.10 kU/L (Normal) PORK <0.10 kU/L (Normal) SOYBEAN <0.10 kU/L (Normal) PEANUT <0.10 kU/L (Normal) CORN <0.10 kU/L (Normal) WHEAT <0.10 kU/L (Normal) MILK (COW) <0.10 kU/L (Normal) :43 CBC-Complete Blood Cnt No Diff Comments: [facility] [address] [facility] [address] [place], [place], [phone] ; fu 10-5 DB MPV 10.0 fL [...] Range: 4.4-11.0 :43 Comprehensive Metabolic Profil Comments: [facility] [address] [facility] [address] [place], [place], [id number] GAP 10 (Normal) Range: 5-15 CO2 27.0 [...] Comments: Please note revised GLUCOSE reference range bapdklpsz14/02/2018. :43 T4 Free Direct Comments: [facility] [address] [facility] [address] [place], [place], [id number] T4 FREE DIRECT 1.04 ng/dL (Normal) Range: 0.76-1.46 :43 Thyroid Stim Hormone (TSH) Comments: [facility] [address] [place], [place], [address] TSH 2.11 {uIU/mL} (Normal) Range: 0.358-3.74 :43 Vitamin D,25 Hydroxy Comments: [facility] [address] [place], [id number] Vitamin D 25-OH 30.2 ng/mL (Normal) Range: 29.95-100.01 Comments: Vitamin D 25(OH) Status Range Deficiency <20 ng/mL (50nmol/L) Insuffciency 20 - 30 ng/mL (50 - 75 nmol/L) Sufficiency 30 - 100 ng/mL (75 - 250 nmol/L) Toxicity >100 ng/mL (>250 nmol/L) 8-Mqg-915710:16 NuSwab Vaginitis Plus Comments: PATIENT NOT FASTINGPERFORMED BY: [facility] [id number] Information: SRC:CE (trich/BV/GC/linda W/O Herpes) (80630) Neisseria gonorrhoeae, Negative (Normal) ROBERT Chlamydia trachomatis, Negative (Normal) ROBERT Trich vag by ROBERT Negative (Normal) Mercedes glabrata, ROBERT Negative (Normal) Comments: This test was developed and its performance characteristics determinedby [employer]. It has not been cleared or approved [...] was developed and its performance characteristicsdetermined by [employer]. It has not been cleared or approvedby the Food and Drug Administration. The FDA has determinedthat such clearance or approval is not necessary. BVAB 2 Low - 0 {Score} (Normal) Atopobium vaginae Low - 0 {Score} (Normal) 6-Duo-927828:16 HPV automatic Comments: Source.............Cervix;EndocervixNo. of containers..01 ThinPrep VialPATIENT NOT FASTINGPERFORMED BY: WB [facility]Co[facility] [id number] BY: =G [facility]CoB[facility] ([address]) zjohbm596 [facility] [id number] Information: [id number] HPV, high-risk Negative Comments: This high-risk HPV [...] metaplasticcells (endocervical com ponent) are present.Z01.419Nathaly Reese Computerized Machine Fabric Cutter (ASCP) 09-May-20178:25 URINE AUTUMN CULTURE-IDENTIFICATN Comments: PATIENT NOT FASTINGPERFORMED BY: CB [facility] [address] [id number] ([address]) Antimicrobial MIHEAD (Normal) Comments: S = Susceptible; [...] Urine Final report Culture,Comprehensive (Abnormal) 09-May-20178:25 URINALYSIS (95096) Comments: PATIENT NOT FASTINGPERFORMED BY: CB [facility] Rvussm2110 Wiz MapsFormerly [facility] [id number] Information: SRC:UC Microscopic Examination MICNIP (Normal) Comments: Microscopic not indicated and not performed. Nitrite, Urine Negative (Normal) Urobilinogen,Semi-Qn 0.2 mg/dL (Normal) Range: 0.2-1.0 Bilirubin Negative (Normal) Occult Blood Negative (Normal) Ketones Negative (Normal) Glucose Negative (Normal) Protein Negative (Normal) WBC Esterase Negative (Normal) Appearance Clear (Normal) Urine-Color Yellow (Normal) pH 5.5 (Normal) Range: 5.0-7.5 Specific [place] 1.022 (Normal) Range: 1.005-1.030 :35 CBC, Platelets & Auto Diff Comments: PATIENT NOT FASTINGPERFORMED BY: LabCoMorristown Medical CenterGmuowj8048 [facility] [id number] Information: NURSE DRAW (32496) Immature Grans (Abs) 0.0 {x10E3/uL} (Normal) Range: [...] Panel, Comprehensive Comments: PATIENT NOT FASTINGPERFORMED BY: [employer] Zapfea2343 SnapDashECU [facility] [id number] (29265) ALT (SGPT) 18 [iU]/L (Normal) Range: 0-32 [...] (Abnormal) Range: 65-99 :35 T3, FREE (TRIDOTHYRONINE) (98762) Comments: PATIENT NOT FASTINGPERFORMED BY: [employer] Kfkles2613 AmosSmart LunchesECU Health [facility] [id number] Triiodothyronine,Free,Serum 3.7 pg/mL (Normal) Range: 2.0-4.4 :35 T4, FREE (THYROXINE) (29561) Comments: PATIENT NOT FASTINGPERFORMED BY: [facility] TechnologyMorristown Medical CenterNpjzbc2403 [facility] [id number] T4,Free(Direct) 1.07 ng/dL (Normal) Range: 0.82-1.77 03-Veg-496756:15 HgA1C , Office (33175) HgA1C , Office 5.5 % (Normal) Range: 4.6 - 7.1 74-Mlq-500268:33 METABOLIC PANEL, Comments: PATIENT WAS FASTINGPERFORMED BY: LabMelvin [place] 137267 [facility] [id number] BY: LabBonovo OrthopedicsMorristown Medical CenterGapgcw6854 [facility] [id number] COMPREHENSIVE (78540) ALT (SGPT) 21 [iU]/L (Normal) Range: 0-32 [...] Glucose, Serum 88 mg/dL (Normal) Range: 65-99 74-Jar-834685:33 LIPOPROTEIN, BLD, BY NMR Comments: PATIENT WAS FASTINGPERFORMED BY: BN [facility] Ldkfytvzpj6803 [facility] [id number] BY: CB [facility] Cavybc2890 [facility] [id number]; fu 8-1 db (20288) LP-IR Score 72 (Abnormal) Comments: INSULIN RESISTANCE MARKER <--Insulin Sensitive Insulin Resistant--> Percentile in Reference PopulationInsulin Resistance ScoreLP-IR Score Low 25th 50th 75th High <27 27 45 63 >63LP-IR Score is inaccurate if patient is non-fasting. .The LP-IR score is a laboratory developed i [facility] that has beenassociated with insulin resistance [...] were developed and their performance characteristicsdetermined by [employer]. These assays have not been cleared by [...] 1600 - 2000 Very High > 2000 94-Iie-632454:33 CBC with auto diff Comments: PATIENT WAS FASTINGPERFORMED BY: BN [facility] [address] [id number] BY: CB [facility] Dzywdd3754 [facility] [id number] (01236) Immature Grans (Abs) 0.0 {x10E3/uL} (Normal) Range: [...] 3.77-5.28 WBC 9.2 {x10E3/uL} (Normal) Range: 3.4-10.8 18-Bkv-897699:33 CALCIFIDIOL (61543) VIT D Comments: PATIENT WAS FASTINGPERFORMED BY: [employer] [address] [id number] BY: [facility] Cymata3085 [facility] [id number] Vitamin D, 25-Hydroxy 51.8 ng/mL (Normal) Range: 30.0-100.0 Comments: Vitamin D deficiency has been defined by the [place] of[place]icine and an Endocrine Society practice guideline as alevel of serum 25-OH vitamin D less than 20 ng/mL (1,2).The Endocrine Society went on to further define vitamin Dinsufficiency as a level between 21 and 29 ng/mL (2).1. IOM ([place] of Medicine). 2010. Dietary reference intakes for calcium and D. [place]: The National Academies Press.2. Clari MF, Jose LEES, Ash NETTLES, et al. Evaluation, treatment, and prevention of vitamin D deficiency: an Endocrine Society clinical practice guideline. JCEM. 2010; 96(7):1911-30. :38 AUTUMN CULTURE-OTHER (81346) Comments: PATIENT NOT FASTINGPERFORMED BY: [employer] TechnologyMorristown Medical CenterFhkpmn[address] [place] [address] [id number] Information: SRC: Result 1 RRF (Normal) Comments: Routine respiratory juan Upper Respiratory Culture Final report (Normal) 15-Azp-00123:32 AUTUMN CULTURE-OTHER (76894) Comments: PATIENT NOT FASTINGPERFORMED BY: [facility] Nfvwtg6528 Bette Villalobos [place] [id number] Information: SRC:TH Result 1 RRF (Normal) Comments: Routine respiratory juan Upper Respiratory Culture Final report (Normal) 72-Ucf-848184:35 Rapid Strep Test, Office (94828) Rapid Strep Test, Office Negative (Normal) 70-Urm-526149:39 CBC W/Diff, Automated Comments: [facility] Xveykbmawp[address] [place], [address] Absolute Lymph 3.19 {X10_3/ul} (Normal) Range: 0.83-4.51 [...] Range: 4.4-11.0 :39 Prothrombin Time w/INR Comments: [facility] Kjadsgottr9893 [address] [place], [place], [address] INR 1.0 (Normal) PROTIME 12.9 s (Normal) Range: 11.7-14.9 :58 CBC, Platelets & Auto Comments: PATIENT NOT FASTINGPERFORMED BY: [facility] Vzlwwk1649 [facility] [id number] Information: [id number] Diff (76754) Immature Grans (Abs) 0.0 {x10E3/uL} (Normal) Range: [...] (Normal) Range: 3.4-10.8 :58 T3, FREE (TRIDOTHYRONINE) (96916) Comments: PATIENT NOT FASTINGPERFORMED BY: [facility]6370 [facility] [id number] Triiodothyronine,Free,Serum 3.2 pg/mL (Normal) Range: 2.0-4.4 :58 T4, FREE (THYROXINE) (05687) Comments: PATIENT NOT FASTINGPERFORMED BY: [address] [id number] T4,Free(Direct) 1.07 ng/dL (Normal) Range: 0.82-1.77 :58 TSH (97485) Comments: PATIENT NOT FASTINGPERFORMED BY: [facility]6370 [facility] [id number] TSH 2.830 {uIU/mL} (Normal) Range: 0.450-4.500 :58 HELICOBACTER PYLORI ANTIBODY Comments: PATIENT NOT FASTINGPERFORMED BY: [facility]6370 [facility] [id number] (18882) H. pylori, IgG Abs <0.9 U/mL (Normal) Range: 0.0-0.8 Comments: Negative <0.9 Indeterminate 0.9 - 1.0 Positive >1.0 :46 Testosterone, Free+Total Comments: PATIENT NOT FASTINGPERFORMED BY: [facility]1447 [facility] [id number] BY: [facility]6370 [facility] [id number] Information: [id number] LC/MS Free Testosterone(Direct) 1.5 pg/mL Range: 0.0-4.2 (Normal) Testosterone, Total, LC/MS 11.8 ng/dL Range: 10.0-55.0 (Normal) Comments: This test was developed and its performance characteristicsdetermined by [facility]. It has not been cleared or approvedby the Food and Drug Administration. Written Authorization WAR (Normal) Comments: PATIENT NOT FASTINGPERFORMED BY: [facility]1447 [facility] [id number] BY: [facility]6370 [facility] [id number] 610:46 Comments: Written Authorization Received.Authorization received from PHILLIP LEIGH LPN [id number] by Chichi Flores 6-Hzg-752010:46 CALCIFIDIOL (79628) VIT D 25 Comments: PATIENT NOT FASTINGPERFORMED BY: [facility]6370 [facility] [id number] Vitamin D, 25-Hydroxy 41.9 ng/mL (Normal) Range: 30.0-100.0 Comments: Vitamin D deficiency has been defined by the [place] of[place]icine and an Endocrine Society practice guideline as alevel of serum 25-OH vitamin D less than 20 ng/mL (1,2).The Endocrine Society went on to further define vitamin Dinsufficiency as a level between 21 and 29 ng/mL (2).1. IOM ([place] of Medicine). 2010. Dietary reference intakes for calcium and D. [place]: The National Academies Press.2. Clari MF, Jose NC, Ash NETTLES, et al. Evaluation, treatment, and prevention of vitamin D deficiency: an Endocrine Society clinical practice guideline. JCEM. 2010; 96(7):1911-30. 8-Nat-814300:46 Metabolic Panel, Comments: PATIENT NOT FASTINGPERFORMED BY: [facility]6370 [facility] [id number] Information: [id number] Comprehensive (74434) ALT (SGPT) 21 [iU]/L (Normal) Range: 0-32 [...] Glucose, Serum 81 mg/dL (Normal) Range: 65-99 29-Wit-387811:16 Cortisol,Urinary Free 24- Comments: PATIENT NOT FASTINGPERFORMED BY: Lab[address] [id number] Information: [id number] VOLUME 1800; fu 8-18 Hour Urine (57196) Cortisol,F,ug/24hr,U 18 {ug/24_hr} (Normal) Range: 0-50 Comments: This test was developed and its performance characteristicsdetermined by [employer]. It has not been cleared or approvedby the Food and Drug Administration. Cortisol,F,ug/L,U 10 ug/L (Normal) 2-Jld-932845:46 HGB A1C (02661) Comments: PATIENT NOT FASTINGPERFORMED BY: LabDuane L. Waters Hospital6370 [facility] [id number] Hemoglobin A1c 5.5 % (Normal) Range: 4.8-5.6 Comments: . Pre-diabetes: 5.7 - 6.4 Diabetes: >6.4 Glycemic control for adults with diabetes: <7.0 09-Nty-185302:13 SEROTONIN (31746) Comments: PATIENT NOT FASTINGPERFORMED BY: [address] [id number] Information: [id number] Serotonin, Serum 10 ng/mL (Normal) Range: 0-420 :42 TSH (THYROID STIMULATING Comments: PATIENT NOT FASTINGPERFORMED BY: [facility]6370 [facility] [id number] HORMONE) (23247) TSH 1.560 {uIU/mL} (Normal) Range: 0.450-4.500 :42 CBC, PLATELETS & MANUAL Comments: PATIENT NOT FASTINGPERFORMED BY: [facility]6370 [facility] [id number] Information: [id number] DIFF (27661) Immature Grans (Abs) 0.0 {x10E3/uL} (Normal) Range: [...] 3.77-5.28 WBC 8.2 {x10E3/uL} (Normal) Range: 3.4-10.8 24-Pud-43376:42 ESR-F (SED RATE ERYTHROCYTE - Comments: PATIENT NOT FASTINGPERFORMED BY: [facility]6370 [facility] [id number] FEMALE) (56101) Sedimentation Rate-Westergren 25 mm/h (Normal) Range: 0-32 29-Rbi-38447:42 PREALBUMIN (80480) Comments: PATIENT NOT FASTINGPERFORMED BY: [facility]6370 [facility] [id number] Prealbumin 28 mg/dL (Normal) Range: 9-31 Comments: [...] - 36 >70 years 9 - 32 04-Git-378186:45 Urinalysis, Complete Comments: Order Date: 11/17/15How was Urine Obtained? HEDGE FUND ACCOUNTANT TO [facility] Onebsgknit[address] [place], [place], [phone] MUCUS, URINE 0 SEEN {/hpf} (Normal) BACTERIA [...] CLARITY Sl. Cloudy (Normal) COLOR Yellow (Normal) 83-Jxe-51481:08 CBC W/Diff, Automated Comments: [facility] Jszyvwkdql65[address] [place], [place], [address] Absolute Lymph 1.81 {X10_3/ul} (Normal) Range: 0.83-4.51 [...] Range: 4.4-11.0 :08 Comprehensive Metabolic Profil Comments: [facility] Yksgzbheea[address] [place], [place], [id number] GAP 6 (Normal) Range: 5-15 CO2 27.0 [...] mg/dL (Normal) Range: 70-110 :08 Lipase Comments: [facility] [address] [place], [place], [address] LIPASE 160 U/L (Normal) Range: 73-393 :08 ,Serum,hCG Quali. Comments: [facility] [address] [place], [place], [address] HCGSQUAL NEGATIVE {Negative} Range: 0-9 Nonpreg (Normal) HCG Qual triggr < 1 m[iU]/mL (Normal) 09-Nov-20150:00 LIPOMA (SOFT TISSUE) See Note (Normal) Comments: [facility] [address] [place], [place], [address] Comments: Patient: SANDRA RATLIFF : 1980 (35/F) Acct Num: [id number] Phys: Yohan HARGROVE,Vi Unit Num: [id number] Loc: LABSPEC Specimen: [id number] Received: 11/09/151842 Spec Type: LIPOMA TISSUES TISSUES: GROSS DESCRIPTION Received is one container labeled with the patient name and designated abdominal lesion. The specimen consists of multiple irregular fragm ents of yellow fatty tissue that in aggregate measure 4 x 3 x 1 cm. Data Entry Representative portions are submitted in one cassette. / AM:shubham 11/10/15 TC:1 CPT:45494 HEADER OPERATION: Excision upper left a bdominal wall lesion PRE-OP DIAGNOSIS: Upper left abdominal wall lesion TISSUE SUBMITTED: Lipoma of abdominal wall MICROSCOPIC DESCRIPTION Slides are reviewed. MICROSCOPIC DIAGNOSIS Lipo ma of abdominal wall, excision: Mature adipose tissue, consistent with lipoma. SJ:shubham 11/11/15 Signed Yimi Zapata 11/11/15 <signature on file> :50 Culture, Blood (WB) Comments: [facility] Ytyipaksdf7340 [facility] [place], [place], [phone] CUB See Note (Normal) Comments: BCNo growth in 5 days. 6-Iqy-257163:50 Culture, Blood (WB) Comments: [facility] Hksqbrhcip[address] [facility] [address] [facility] [address] [place], [place], [address] CUB See Note (Normal) Comments: BCNo growth in 5 days. 23-Ykp-40190:08 Urinalysis, Office (27001) UA - LEUKOCYTE ESTERASE Negative (Normal) UA - NITRITE Negative (Normal) URINE UROBILINGN DWAYNE TIMED Normal mg/dL (Normal) UA - PROTEIN 30 mg/dL (Normal) UA - PH 6 (Abnormal) UA - BLOOD Negative (Normal) UA - SPECIFIC GRAVITY 1.020 (Normal) UA - KETONES 15 ug/dL (Abnormal) UA - BILIRUBIN Moderate (Normal) UA - GLUCOSE Negative (Normal) 53-Ipi-206601:10 Microscopic Examination Comments: PATIENT NOT FASTINGPERFORMED BY: LabCoMorristown Medical CenterGtjygo9991 [facility] [id number] Bacteria Few (Normal) Mucus Threads Present (Normal) Cast Type Hyaline casts (Normal) Casts Present {/lpf} (Abnormal) Epithelial Cells (non renal) 0-10 {/hpf} (Normal) Range: 0 - 10 RBC 0-2 {/hpf} (Normal) Range: 0 - 2 WBC 6-10 {/hpf} (Abnormal) Range: 0 - 5 98-Suq-956226:51 ANCA Panel Comments: PATIENT NOT FASTINGPERFORMED BY: [employer] [address] [id number] BY: [employer] Ifyfot6192 [facility] [id number] Information: [id number] Atypical pANCA <1:20 {titer} Comments: The atypical [...] follow up testing ofpositive sera with both NM-3 and MPO-ANCA enzyme immunoassays. Asmany as 5% serum samp les are positive only by EIA.Ref. AM J Clin Pathol 1999;111:507-513. Cytoplasmic (C-ANCA) <1:20 {titer} (Normal) Antiproteinase 3 (NM-3) Abs <3.5 U/mL Range: 0.0-3.5 (Normal) Antimyeloperoxidase (MPO) <9.0 U/mL Range: 0.0-9.0 Abs (Normal) Written Authorization WAR (Normal) Comments: PATIENT NOT FASTINGPERFORMED BY: [employer] [id number] BY: [employer] TechnologyMorristown Medical CenterZjhtru7791 [facility] [id number] 612:51 Comments: Written Authorization Received.Authorization received from ERIKA RUANO LPN [id number] by Shalini Ramos 02-Nkr-036913:51 CBC WITH MANUAL DIFF Comments: PATIENT NOT FASTINGPERFORMED BY: [facility]6370 [facility] [id number] Information: [id number] (47282) Immature Grans (Abs) 0.0 {x10E3/uL} (Normal) Range: [...] 3.77-5.28 WBC 7.8 {x10E3/uL} (Normal) Range: 3.4-10.8 21-Mbp-447533:10 URINE AUTUMN CULTURE-IDENTIFICATN Comments: PATIENT NOT FASTINGPERFORMED BY: LabDuane L. Waters Hospital6370 [facility] [id number] (19830) Result 1 NG36 (Normal) Comments: No growth in 36 - 48 hours. Urine Culture,Comprehensive Final report (Normal) 60-Khu-947930:51 COMPLEMENT C4 (69492) Comments: PATIENT NOT FASTINGPERFORMED BY: [place] 6080870 [facility] [id number] Complement C4, Serum 50 mg/dL (Abnormal) Range: 14-44 60-Dpf-137636:51 COMPLEMENT C3 (55808) Comments: PATIENT NOT FASTINGPERFORMED BY: [address] [id number] Complement C3, Serum 204 mg/dL (Abnormal) Range: 82-167 67-Tsz-076451:58 COMPLEMENT, TOTAL (CH50) Comments: PATIENT NOT FASTINGPERFORMED BY: [address] [id number] Information: [id number] (22490) Complement, Total (CH50) >60 U/mL (Abnormal) Range: 42-60 Comments: Please note reference interval change 87-Nbp-012333:10 URINALYSIS (97159) Comments: PATIENT NOT FASTINGPERFORMED BY: [address] [id number] Information: [id number] Microscopic Examination See below: (Normal) Comments: Microscopic was indicated and was performed. Appearance Cloudy (Abnormal) Urine-Color [place] (Normal) Comments: Unable to read or assay due to color interference. Specific [place] 1.023 (Normal) Range: 1.005-1.030 85-Vfy-682491:51 HCG Qualitative, Serum (74713) Comments: PATIENT NOT FASTINGPERFORMED BY: [place] 6080870 [facility] [id number] hCG,Beta Subunit,Qual,Serum Negative m[iU]/mL (Normal) 54-Nvl-226326:51 serum free light chains Comments: PATIENT NOT FASTINGPERFORMED BY: [address] [id number] (45624) [place]/Lambda Ratio,S 1.97 (Abnormal) Range: 0.26-1.65 Free Lambda Lt Chains,S 16.13 mg/L (Normal) Range: 5.71-26.30 Free [place] Lt Chains,S 31.85 mg/L (Abnormal) Range: 3.30-19.40 :51 urine immunofixation (10194) Comments: PATIENT NOT FASTINGPERFORMED BY: [facility] [id number] IRWIN Interpretation:U UPEIP (Normal) Comments: No monoclonality detected. :51 serum immunofixation (19295) Comments: PATIENT NOT FASTINGPERFORMED BY: [facility] [id number] Immunoglobulin M, Qn, Serum 68 mg/dL (Normal) Range: 40-230 Immunoglobulin A, Qn, Serum 192 mg/dL (Normal) Range: 91-414 Immunoglobulin G, Qn, Serum 1229 mg/dL (Normal) Range: 700-1600 Immunofixation Result, Serum IFENOR (Normal) Comments: An apparent normal immunofixation pattern. :51 UPEP (55223) Comments: PATIENT NOT FASTINGPERFORMED BY: [facility] [id number] Please note: SPRCS (Normal) Comments: Protein electrophoresis scan will follow via computer, mail, orcourier delivery. M-Rene, % Not Observed % (Normal) Gamma Globulin, U 12.1 % (Normal) Beta Globulin, U 23.3 % (Normal) Lzoxz-3-Dmzqzhlg, U 28.7 % (Normal) Kzwjo-4-Hjukmedh, U 4.1 % (Normal) Albumin, U 31.8 % (Normal) Protein,Total,Urine 42.0 mg/dL (Abnormal) Range: 0.0-15.0 :51 P-ANCA & C-ANCA (ANCA Comments: PATIENT NOT FASTINGPERFORMED BY: [employer]70 [facility] [id number] PROFILE) 26091 x2 and 40968 x2 Mitochondrial (M2) Antibody <20.0 {Units} (Normal) Range: 0.0-20.0 Comments: Negative 0.0 - 20.0 Equivocal 20.1 - 24.9 Positive >24.9 . Mitochondrial (M2) Antibodies are found in 90-96% of patients with primary biliary cirrhosis. 03-Jxe-424891:51 C-REACT PROT HIGH SENS(hsCRP) Comments: PATIENT NOT FASTINGPERFORMED BY: [facility]Duane [facility]6370 [facility] [id number] (39295) C-Reactive Protein, Cardiac 94.10 mg/L (Abnormal) Range: 0.00-3.00 Comments: Relative Risk for Future Cardiovascular Event Low <1.00 Average 1.00 - 3.00 High >3.00 22-Pbi-809130:32 DNA ANTIBODY-NATV/DBL ST (63672) Comments: PATIENT NOT FASTINGPERFORMED BY: [facility]6370 [facility] [id number] test code [id number] Anti-DNA (DS) Ab Qn <1 {IU/mL} (Normal) Range: 0-9 Comments: Negative <5 Equivocal 5 - 9 Positive >9 96-Yqj-509200:32 MICROALBUMIN: CREATININE Comments: PATIENT NOT FASTINGPERFORMED BY: [facility]6370 [facility] [id number] Information: [id number] RATIO (67214) AND (20923) Microalb/Creat Ratio 28.7 {mg/g_creat} (Normal) Range: 0.0-30.0 Microalbumin, Urine 76.1 ug/mL (Abnormal) Range: 0.0-17.0 Creatinine, Urine 265.3 mg/dL (Normal) Range: 16.0-327.0 19-Ews-584681:32 RPR (RAPID PLASMA REAGIN) Comments: PATIENT NOT FASTINGPERFORMED BY: [facility]6370 [facility] [id number] (84246) RPR Non Reactive (Normal) 54-Qtz-682618:26 Systemic Lupus Profile A Comments: PATIENT NOT FASTINGPERFORMED BY: [facility]6370 [facility] [id number] Information: 132412,[id number] Anti-DNA (DS) Ab Qn <1 {IU/mL} Range: 0-9 (Normal) Comments: Negative <5 Equivocal 5 - 9 Positive >9 Sjogren's Anti-SS-B 0.4 {AI} (Normal) Range: 0.0-0.9 Sjogren's Anti-SS-A <0.2 {AI} (Normal) Range: 0.0-0.9 Antichromatin Antibodies 0.3 {AI} (Normal) Range: 0.0-0.9 RA Latex Turbid. 13.0 {IU/mL} Range: 0.0-13.9 (Normal) Tariq Antibodies <0.2 {AI} (Normal) Range: 0.0-0.9 MANAGER MOTOR Antibodies 2.7 {AI} Range: 0.0-0.9 (Abnormal) Written Authorization WAR (Normal) Comments: PATIENT NOT FASTINGPERFORMED BY: [employer] Qimgvf4391 [facility] [id number] 0:26 Comments: Written Authorization Received.Authorization received from MICHELLE REAVES MD [id number] by Devi Biswas 91-Cma-774707:26 EB ANTIBODY VIRAL CAPSID Comments: PATIENT NOT FASTINGPERFORMED BY: [employer] TechnologyMorristown Medical CenterXhuxrj0613 [facility] [id number] (20547) X2 Interpretation: SPRCS (Normal) Comments: EBV Interpretation [...] <36.0 Equivocal 36.0 - 43.9 Positive >43.9 77-Uch-990708:26 CALCIFIDIOL (56070) VIT D 25 Comments: PATIENT NOT FASTINGPERFORMED BY: [employer] TechnologyArtesia General HospitalUihyxt6067 [facility] [id number] Vitamin D, 25-Hydroxy 48.4 ng/mL (Normal) Range: 30.0-100.0 Comments: Vitamin D deficiency has been defined by the [place] of[facility] and an Endocrine Society practice guideline as alevel of serum 25-OH vitamin D less than 20 ng/mL (1,2).The Endocrine Society went on to further define vitamin Dinsufficiency as a level between 21 and 29 ng/mL (2).1. IOM ([place] of Medicine). 2010. Dietary reference intakes for calcium and D. [place]: The National Academies Press.2. Clari MF, Jose NC, Ash NETTLES, et al. Evaluation, treatment, and prevention of vitamin D deficiency: an Endocrine Society clinical practice guideline. JCEM. 2010; 96(7):1911-30. 37-Rio-919867:26 Folate (29243) Comments: PATIENT NOT FASTINGPERFORMED BY: OndoreSaint Mary'S Hospital Of Blue SpringsHybojw7405 [facility] [id number] Folate (Folic Acid), Serum 8.4 ng/mL (Normal) Comments: A serum folate concentration of less than 3.1 ng/mL isconsidered to represent clinical deficiency. 45-Ras-452486:26 VITAMIN B-12 (CYANOCOBALAMIN) Comments: PATIENT NOT FASTINGPERFORMED BY: [employer] Pucqqt8073 [facility] [id number] (91307) Vitamin B12 280 pg/mL (Normal) Range: 211-946 65-Xxe-029574:26 TSH (81555) Comments: PATIENT NOT FASTINGPERFORMED BY: [employer] Nqwgyl9761 [facility] [id number] TSH 1.730 {uIU/mL} (Normal) Range: 0.450-4.500 00-Ucf-343599:26 SED RATE ERYTHROCYTE (91349) Comments: PATIENT NOT FASTINGPERFORMED BY: LabCoMorristown Medical CenterEdhrdk3390 [facility] [id number] Sedimentation Rate-Westergren 48 mm/h (Abnormal) Range: 0-32 67-Pez-791919:26 RHEUMATOID FACTOR-QUANT (99004) Comments: PATIENT NOT FASTINGPERFORMED BY: [facility] Godwjs5863 [facility] [id number] RA Latex Turbid. 13.3 {IU/mL} (Normal) Range: 0.0-13.9 90-Ghj-064345:26 METABOLIC PANEL, Comments: PATIENT NOT FASTINGPERFORMED BY: LabCoMorristown Medical CenterKjoknw0893 [facility] [id number] Information: [id number] COMPREHENSIVE (06621) ALT (SGPT) 21 [iU]/L (Normal) Range: 0-32 [...] Glucose, Serum 101 mg/dL (Abnormal) Range: 65-99 35-Tfg-142903:26 C-REACTIVE PROTEIN (54435) Comments: PATIENT NOT FASTINGPERFORMED BY: [employer] Cpowsd2426 [facility] [id number] C-Reactive Protein, Quant 157.4 mg/L (Abnormal) Range: 0.0-4.9 :26 CBC (AUTO) (94948) Comments: PATIENT NOT FASTINGPERFORMED BY: [employer] Qosics5063 [facility] [id number] Platelets 275 {x10E3/uL} (Normal) Range: 150-379 RDW 13.4 % (Normal) Range: 12.3-15.4 MCHC 33.9 g/dL (Normal) Range: 31.5-35.7 MCH 29.6 pg (Normal) Range: 26.6-33.0 MCV 87 fL (Normal) Range: 79-97 Hematocrit 39.2 % (Normal) Range: 34.0-46.6 Hemoglobin 13.3 g/dL (Normal) Range: 11.1-15.9 RBC 4.50 {x10E6/uL} (Normal) Range: 3.77-5.28 WBC 13.8 {x10E3/uL} (Abnormal) Range: 3.4-10.8 :26 KWAN (ANTINUCLEAR ANTIBODY) Comments: PATIENT NOT FASTINGPERFORMED BY: [employer] Dcypio0838 [facility] [id number] (15149) KWAN Direct Positive (Abnormal) 60-Lbx-328765:21 Sed Rate Erythrocyte (63430) Comments: PATIENT NOT FASTINGPERFORMED BY: [employer] Zkoduz5343 [facility] [id number] Sedimentation Rate-Westergren 20 mm/h (Normal) Range: 0-32 72-Ouj-606305:21 Metabolic Panel, Comprehensive Comments: copy to Dr. sanchez; PATIENT NOT FASTINGPERFORMED BY: [employer] Ffjule7763 [employer] Formerly [facility] HospitalBegel SystemsFormerly [facility] [id number] (71826) ALT (SGPT) 23 [iU]/L (Normal) Range: 0-32 [...] Glucose, Serum 112 mg/dL (Abnormal) Range: 65-99 12-Wtr-369124:21 CBC, Platelets & Auto Comments: PATIENT NOT FASTINGPERFORMED BY: [employer] Gubnpe0309 [facility] [id number] Information: [id number] Diff (66233) Immature Grans (Abs) 0.0 {x10E3/uL} (Normal) Range: [...] 3.77-5.28 WBC 11.0 {x10E3/uL} (Abnormal) Range: 3.4-10.8 19-Miz-889950:21 Lipase (39321) Comments: PATIENT NOT FASTINGPERFORMED BY: [facility]CoMor[facility] CenterXcjbtl1165 [facility] [id number] Lipase, Serum 33 U/L (Normal) Range: 0-59 68-Ukr-811706:23 GALLBLADDER See Note (Normal) Comments: Test performed at:[facility] [address] [place], [place] [id number] Comments: Patient: SANDRA RATLIFF : 1980 (34/F) Acct Num: [id number] Phys: Vi Sanchez MD Unit Num: [id number] Loc: [facility] [place] Specimen: [id number] Received: 02/02/151541 Spec Type: GALL BLADDE TISSUES [...] average thickness andis free of mass lesions. Data Entry Representative sections of the gallbladder and the cystic duct are submitted in one cassette. / AM: 02/03/15 TC:3 CPT: 8 8304 HEADER OPERATION: Lap, cholecystectomy PRE-OP DIAGNOSIS: Calculus of gallbladder with acute cholecystitis TISSUE SUBMITTED: Gallbladder MICROSCOPIC DESCRIPTION Slides are reviewed. MICROSCOPIC DIAGNOSIS Gallbladder, cholecystectomy: Chronic cholecystitis and cholelithiasis. AM: 02/04/15 Signed Tr [facility] 02/04/15 <signature on file> 53-Rkd-858124:10 ,Urine Comments: Test performed at:[facility] [address] [place], [place] [address] ; ordered by another doctor HCGUQUAL Negative {Negative} (Normal) Comments: Very dilute urine specimens, as indicated by a low specificgravity, may not contain business banking representative levels of hCG.If is still suspected, a first morning urinespecimen should be collected 48 hours later and tested. 87-Gqq-50146:45 Basic Metabolic Profile (BMP) Comments: Test performed at:[facility] [address] [place] [address] GAP 10 (Normal) Range: 5-15 CO2 26.0 [...] Comments: Please note revised CREATININE reference range krfeigtbt09/22/2015. BUN 13 mg/dL (Normal) Range: 7-18 GLU 112 mg/dL (Abnormal) Range: 70-110 Comments: Fasting Glucose result from 110 to <126 mg/dLsuggests IMPAIRED HOMEOSTASIS per A.D.A. criteria. 50-Zwc-12417:45 CBC W/Diff, Automated Comments: Test performed at:[facility] [address] [place], [place] [address] Absolute Lymph 4.26 {X10_3/ul} (Normal) Range: 0.83-4.51 [...] Range: 4.4-11.0 :45 Lipase Comments: Test performed at:[facility] [address] [place] [address] LIPASE 136 U/L (Normal) Range: 73-393 :45 Liver Profile Comments: Test performed at:[address] [place] [address] D BILI < 0.05 mg/dL [...] 02/01/15How was Urine Obtained? CLEAN CATCHTest performed at:[facility] [address] [place] [address] HCGUQUAL Negative {Negative} (Normal) Comments: Very dilute urine specimens, as indicated by a low specificgravity, may not contain business banking representative levels of hCG.If is still suspected, a first morning urinespecimen should be collected 48 hours later and tested. :45 Urinalysis, Complete Comments: Order Date: 02/01/15How was Urine Obtained? CLEAN CATCHTest performed at:[facility] [address] [place] [address] MUCUS, URINE 0 SEEN {/hpf} [...] Clear (Normal) COLOR Yellow (Normal) :45 CALCIFIDIOL (70375) VIT D 25 Comments: PATIENT NOT FASTINGPERFORMED BY: [facility] [facility] [id number] Vitamin D, 25-Hydroxy 42.1 ng/mL (Normal) Range: 30.0-100.0 Comments: Vitamin D deficiency has been defined by the [place] of[place]icine and an Endocrine Society practice guideline as alevel of serum 25-OH vitamin D less than 20 ng/mL (1,2).The Endocrine Society went on to further define vitamin Dinsufficiency as a level between 21 and 29 ng/mL (2).1. IOM ([place] of [employer]). 2010. Dietary reference intakes for calcium and D. [place]: The National Academies Press.2. Clari MF, Jose [place], Ash NETTLES, et al. Evaluation, treatment, and prevention of vitamin D deficiency: an Endocrine Society clinical practice guideline. JCEM. 2010; 96(7):1911-30. :45 Metabolic Panel, Basic Comments: PATIENT NOT FASTINGPERFORMED BY: [employer] [facility] Vnkiom4216 [employer] [facility] [id number] Information: [id number] (34164) Calcium, Serum 9.6 mg/dL (Normal) Range: 8.7-10.2 [...] Glucose, Serum 100 mg/dL (Abnormal) Range: 65-99 37-Sxq-581607:50 Rapid Flu (00181 x 2) Influenza A Ag neg (Normal) :29 LIPID PANEL (76653) Comments: PATIENT WAS FASTINGPERFORMED BY: [employer] Twnjxq3443 [facility] [id number] Information: [id number] LDL/HDL Ratio 2.6 {ratio_units} (Normal) Range: 0.0-3.2 [...] Metabolic Panel, Comments: PATIENT NOT FASTINGPERFORMED BY: MojivaArtesia General HospitalGgyjnm3768 [facility] [id number] Information: [id number] Comprehensive (68209) ALT (SGPT) 25 [iU]/L (Normal) Range: 0-32 [...] 87 mg/dL (Normal) Range: 65-99 12-Jan-20139:50 CALCIFEDIOL (04950) Comments: PATIENT NOT FASTINGPERFORMED BY: [facility]CoMor[facility] CenterXawpyv4445 [facility] [id number] Vitamin D, 25-Hydroxy 42.6 ng/mL (Normal) Range: 30.0-100.0 Comments: Vitamin D deficiency has been defined by the [place] of[employer]icine and an Endocrine Society practice guideline as alevel of serum 25-OH vitamin D less than 20 ng/mL (1,2).The Endocrine Society went on to further define vitamin Dinsufficiency as a level between 21 and 29 ng/mL (2).1. IOM ([place] of [employer]). 2010. Dietary reference intakes for calcium and D. [place]: The National Academies Press.2. Clari MF, Jose NC, Ash NETTLES, et al. Evaluation, treatment, and prevention of vitamin D deficiency: an Endocrine Society clinical practice guideline. JCEM. 2010; 96(7):1911-30. :08 CATU tDOP 108 ug/L (Normal) tDOP24 255 {ug/24_hr} (Normal) Range: 0-510 Comments: TESTING PERFORMED AT [facility]. ORIGINAL REPORT ON FILE IN LAB CONTAINS ADDITIONAL TEST SITE INFORMATION. tEPIN24 < 2 {ug/24_hr} (Normal) Range: 0-20 tNORE 16 ug/L (Normal) tNORE24 38 {ug/24_hr} (Normal) Range: 0-135 tEPIN < 1 ug/L (Normal) :08 KWESI 20.48 ug/dL (Normal) Range: 3.09-22.40 Comments: Adult (AM) 4.30 - 22.40 ug/dL Adult (PM) 3.09 - 16.66 ug/dL :08 DHEA 26.2 ug/dL (Abnormal) Range: 98.8-340.0 77-Kjn-740089:08 METAU tMETA 24 ug/L (Normal) tMETA24 57 {ug/24_hr} (Normal) Range: 45-290 Comments: (Hypertensive) >17 years 11 months: 35 - 460 . Please note reference interval change tNORM24 219 {ug/24_hr} (Normal) Range: 82-500 Comments: (Hypertensive) >17 years 11 months: 110 - 1050 tNORM 93 ug/L (Normal) 53-Nuw-254988:08 MISC . (Normal) Comments: TEST RESULT GTYFVR07-Newvkxwcymsolktwzfm, MS 17 [place] Pregnenolone, Serum MS < 10 ng/dL Reference Range: Adults: 53 - 357 [facility]. ORIGINAL REPORT ON FILE IN LAB CONTAINS ADDITIONAL TEST SITE INFORMATION. :08 PROL 10.2 ng/mL (Normal) Range: 4.8-23.3 :08 TESTOF <0.2 pg/mL (Normal) Range: 0.0-2.2 Comments: Performed at: - [address] [id number] Director: Davide Jordan MD, Phone: [phone] at: - [place] [id number] Director: Andra Reyes MD, Phone: [phone] 18-Tmo-967122:08 VMA tVMA24 3.1 {mg/24_hr} (Normal) Range: 0.0-7.5 [...] 7-18 GLU 92 mg/dL (Normal) Range: 70-110 97-Oww-517084:56 VIT D,25 36704 33.7 ng/mL (Normal) Range: 30.0-100.0 Comments: Vitamin D deficiency has been defined by the [place] [facility] and an Endocrine Society practice guideline as alevel of serum 25-OH vitamin D less than 20 ng/mL (1,2).The Endocrine Society went on to further define vitamin Dinsufficiency as a level between 21 and 29 ng/mL (2).1. IOM ([place] of Medicine). 2011. Dietary reference intakes for calcium and D. [place]: The National Academies Press.2. Clari MF, Joes [place], Ash NETTLES, et al. Evaluation, treatment, and prevention of vitamin D deficiency: an Endocrine Society clinical practice guideline. JCEM. 2010; 96(7): 1911-30.Performed at: [facility] [address] [id number] Director: Andra Reyes MD, Phone: [phone] 62-Ssh-686943:57 MICROALB:CRE UR MALB:CREAT 25.7 {mg/g_CRE} (Normal) MICROALBUMIN,UR 40.9 mg/L (Normal) UR CREAT 159.1 mg/dL (Normal) 5-Kod-274985:09 MYOCARD PERF STRESS/REST MULT Radiology Report See Note (Normal) Comments: EXERCISE MYOCARDIAL PERFUSION SCAN WCEYWSNWbqtqx-jhlo-fzs with a history of hypertension and abnormal EKG. EFWJYBUTS20 mCi of Sestamibi was injected at rest. [...] HARGROVE,Stephane on 03/10/11 1446 Sign by: Tamar HARGROVE,[place] 2-Xch-422862: VIT D,25 42120 28.7 ng/mL Range: 32.0-100.0 10 (Abnormal) Comments: Recent studies consider the lower limit of 32.0 ng/mL to guy threshold for optimal health.Rakan BOWENS. J Nutr. 2004;135(2):317- 22.Performed at: [place] [id number] Director: Andra Reyes MD, Phone: [phone] TSH 2.62 {uIU/mL} Range: 0.358-3.74 :41 (Normal) [...] 7-18 GLU 78 mg/dL (Normal) Range: 70-110 67-Pgk-95798:57 CBCD,SMEAR DIFF RED CELL MORPH SeeNote {NORMAL} [...] BETA STREPTOCOCCUS :28 Rapid Strep Test, Office (70238) Rapid Strep Test, Office Negative (Normal) 1-Vbn-226664:39 HCG QUANT. 48187 m[iU]/mL (Abnormal) 7-Sup-202590:39 ,SERUM HCGSQUAL SeeNote m[iU]/mL (Normal) Range: 0-9 [...] of hypertension Planned Observations Food Allergy Profile (07048)Indication: Allergic to food (Renamed from Food allergy) On: :28 Request T4, FREE (THYROXINE) (62165)Indication: Abnormal thyroid blood test On: :22 Request TSH (72477)Indication: Abnormal thyroid blood test On: :22 Request CALCIFIDIOL (62777) VIT D 25Indication: Vitamin D deficiency, unspecified On: :22 Request CBC (Auto) (55684)Indication: KWAN positive On: :21 Request Metabolic Panel, Comprehensive (63965)Indication: KWAN positive On: :21 Request Thin prep Pap (79832) (no STD testing)Indication: Well woman exam (Renamed from Encounter for well woman exam) On: :13 Request PT (Prothrobim Time) (52244)Indication: Preop examination On: 96-Wab-876121:36 Request CBC WITH MANUAL DIFF (36789)Indication: Preop examination On: 94-Ngr-900032:36 Request T4, FREE (THYROXINE) (15733)Indication: Abnormal thyroid blood test On: : Request TSH (83729)Indication: Abnormal thyroid blood test On: : Request CALCIFIDIOL (74171) VIT D 25Indication: Vitamin D deficiency, unspecified On: : Request MICROALBUMIN: CREATININE RATIO (17485) AND (99337)Indication: Proteinuria On: Request METABOLIC PANEL, COMPREHENSIVE (74938)Indication: Antiphospholipid syndrome On: Request CBC with auto diff (21397)Indication: Antiphospholipid syndrome On: Request LIPOPROTEIN, BLD, BY NMR (66361)Indication: Hyperlipidemia, unspecified hyperlipidemia type On: : Request MICROALBUMIN: CREATININE RATIO (18268) AND (82997)Indication: Proteinuria On: 00-Zft-837216:10 Request LEUKOCYTE COUNT, FECAL (99794)Indication: Abdominal pain, acute On: 17-Swg-464694:10 Request OVA & PARASITE DIR SMEAR (77069)Indication: Abdominal pain, acute On: 01-Nge-358713:10 Request Clostridium difficile Toxin A+B, EIA (81494)Indication: Abdominal pain, acute On: 40-Nty-584605:10 Request AUTUMN CULTURE-STOOL (29406)Indication: Abdominal pain, acute On: 39-Wue-785589:10 Request Rapid Flu (18914 x 2)Indication: Flu-like symptoms On: 46-Pnl-947073:01 Request EB ANTIBODY NUCLR ANTIGN (57975)Indication: Fatigue On: 81-Wgi-435393:01 Request Rapid Flu (43483 x 2)Indication: Fever and chills On: 16-Dmv-729730:00 Request POTASSIUM SERUM (40915)Indication: Hypokalemia On: 4-Bkf-110590:48 Request PROLACTIN (75205)Indication: Amenorrhea On: 8-Cvq-345055:56 Request DHEA-S (DEHYDROEPIANDROSTERONE SULFATE) (83301)Indication: Amenorrhea On: 7-Fep-284753:55 Request TESTOSTERONE FREE (12686)Indication: Amenorrhea On: :55 Request 17-HYDROXYPREGNENOLONE (02130)Indication: Amenorrhea On: :52 Request CORTISOL FREE (61152)Indication: Elevated blood-pressure reading without diagnosis of hypertension On: :49 Request METANEPHRINES - URINE (54755)Indication: Elevated blood-pressure reading without diagnosis of hypertension On: :49 Request CATECHOLAMINES TOTAL, URINE (70488)Indication: Elevated blood-pressure reading without diagnosis of hypertension On: :49 Request URINE VMA (54077)Indication: Elevated blood-pressure reading without diagnosis of hypertension On: :49 Request Metabolic Panel, Basic (69798)Indication: Stress reaction On: :29 Request MICROALBUMIN: CREATININE RATIO (87529) AND (28596)Indication: Unspecified Diagnosis On: 02-Gbk-766515:18 Request CALCIFEDIOL (43881)Indication: Elevated blood-pressure reading without diagnosis of hypertension On: 77-Dyw-867037:14 Request TSH (17981)Indication: Elevated blood-pressure reading without diagnosis of hypertension On: 93-Cpd-170015:13 Request METABOLIC PANEL, COMPREHENSIVE (07272)Indication: Nausea On: :40 Request Lipase (17719)Indication: Nausea On: 85-Fzq-344352:40 Request TEST - SERUM QUANTITATIVE (HCG) (68176)Indication: Amenorrhea On: :40 Request Amylase (45788)Indication: Nausea On: 03-Mod-689845:40 Request METABOLIC PANEL, COMPREHENSIVE (87845)Indication: Palpitations On: :47 Request CBC WITH MANUAL DIFF (55284)Indication: Palpitations On: :47 Request TSH (38990)Indication: Palpitations On: :47 Request AUTUMN CULTURE-OTHER (58392)Indication: Acute pharyngitis On: :28 Request BHCG (HUMAN CHORIONIC GONADOTROPIN - BETA) (88720)Indication: Amenorrhea On: 08-Mrk-794474:22 Request HCG (HUMAN CHORIONIC GONADOTROPIN) (65711)Indication: Amenorrhea On: 22-Kjh-236765:22 Request Planned Encounters Medical; TIFFANIE 2 Month FU - On: 26-Jun-2018 9:15 [facility] Michelle Reaves MD, MD, Dana M Planned Procedures MRI OF LEFT KNEE WITHOUT CONTRAST On: 20-Feb-2018 Intent (40816)By: Michelle Reaves MD Comments: will plan for 4 weeks. Michelle HARGROVE DRAIN/INJECT MAJOR JOINT OR BURSA On: 10-Feb-2018 Intent (55128)By: Michelle Reaves MD Comments: 2 cc Marcaine lot# [id number] exp 1 cc kenalog lot# [id number] exp rte: left knee intra articular dose: as above given by:Dr. Jensen Hall LPN MD, Dana M Radiology - Knee - Left - Weight On: 07-Feb-2018 Intent BearingBy: Michelle Reaves MD, MD, Dana M SPECIMEN HNDLNG/TRNSPRT, OFFC > LAB On: 18-Jun-2016 Intent (24219)By: Michelle Reaves MD, MD, Dana M SPECIMEN HNDLNG/TRNSPRT, OFFC > LAB On: 04-Jun-2016 Intent (11343)By: Michelle Reaves MD, MD, Dana M Radiology - Small Bowel Series On: 18-Nov-2015 Intent (38848)By: Michelle Reaves MD, MD, Dana M Radiology - KUBBy: Kirsten Arias CNP On: 31-Aug-2015 Intent Comments: call to MCiesa INFUSION, NORMAL SALINE SOLUTION , On: 31-Aug-2015 Intent 1000 CC (Special Coverage Comments: 1000 ccIVleft antecub.tolerated well22 [facility] 57-007jtexp 03/2017RUTH steen Instructions Apply. See MCM: 2049) (J7030)By: Kirsten Arias CNP Ultrasound - PelvisBy: Jensen HARGROVE, On: 26-Jul-2015 Intent Michelle Riley MD Comments: attention adrenal glad CT - Abdomen & Pelvis (IV Contrast On: 19-Jul-2015 Intent Needed)By: Yady Weston Ultrasound - Abdomen (Limited Area or On: 31-May-2015 Intent Organs)By: Michelle eRaves MD, MD, Dana M UGI (With air contrast if On: 01-Feb-2015 Intent necessary)By: Michelle Reaves MD, MD, Dana M Ultrasound - GallbladderBy: Jensen On: 01-Feb-2015 Intent Michelle HARGROVE MD, Dana M Comments: right now call wtih wet read. ELECTROCARDIOGRAM, COMPLETE (ECG) On: 19-Jan-2014 Intent (89861)By: Michelle Reaves MD, MD, Dana M Eprescribed prescriptions (G8553)By: On: 02-Jun-2013 Intent Long FISH HATCHERY LABORER, Kathy L EKG (42913)By: Michelle Reaves MD On: 27-Jan-2013 Intent Michelle Reaves MD Comments: see scanned document of test done to see results reviewed today with patient Eprescribed prescriptions (G8553)By: On: 27-Jan-2013 Intent Long FISH HATCHERY LABORER, Kathy L TDAP VACCINE >7 IM (01434)By: Jensen On: 30-Apr-2011 Intent Michelle HARGROVE MD, Dana M FLU VAC, SPLIT, >3 YEARS, INTRAMUSC On: 30-Apr-2011 Intent (95587)By: PHILLIP Leigh Comments: Lot #:[id number] date:mount given:0.5mlRoute: IMSite given:left deltoid Given by: HBryan IMMUNIZ ADMNIN, 1 VAC, SNGL/COMBO On: 30-Apr-2011 Intent (92070)By: PHILLIP Leigh Nuclear Stress Test/Stress On: 05-Mar-2011 Intent SPECT/TreadmillBy: Kirsten Arias CNP ELECTROCARDIOGRAM, COMPLETE (ECG) On: 05-Mar-2011 Intent (87859)By: Kirsten Arias CNP Bio Z (39821)By: Kirsten Arias CNP On: 05-Mar-2011 Intent Holter Moniter (59689)By: Pop HORAN, On: 29-Nov-2010 Intent Atiya EKG (96474)By: Indu Mai LPN On: 29-Nov-2010 Intent Comments: [...] Advance Directives Name Dates Details Immunization Registry [place] - Effective on Effective: 05-Jul-201707/05/2017. Expiration date [...] fever. Note for Insect bite/sting: was in [place]- she got lots of bites not sure [...] Nutrition: balanced diet and supplemental vitamins. The az dical issues the patient is following up [...] and low grade fever, elevated CRP pos MANAGER MOTOR, elevated WBC on the rise, protein in [...] l ow grade fever, elevated CRP pos MANAGER MOTOR, elevated WBC on the rise, protein in [...] of angina, history of CHF, history of [place] or smoking.Encounter Diagnosis: Palpitations(785.1), Abnormal EKG(794.31) Comprehensive [...] forearm (943.01) [facility] [employer] [place] [employer] [place] RATLIFF; a guarantor
--- OUTSIDE RECORDS SUMMARY | 2018-08-05 17:30 | XMS RPT_ITS | Continuity of Care Document ---
:1980 Author Organization [facility] Address [address] [address] Phone Care Team Providers Name Role Phone [...] grade fever. Dr. 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 rightn ow no [...] walk not feel need at much to critical access hospital. 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 Status: Inactive as of 01-Mar-2014 Elevated [...] 686.9) Comments: went into cellutiis after at [facility] in water. will do soap cleanses [...] resolve on atb and will follow up [facility] ent Status: Resolved as of [...] Note; NOTES: [facility] [address] [place] [address] OFFICE VISIT Date of Service: 05/06/18 MR#: [id number] Acct: [id number] Name: SANDRA RATLIFF Rep #: [id number] : 1980 Provider: Ofe Jay DO Age/Sex: 37/F Location: [facility] [place] [place] [place] Status: Signed Intake Intake Visit Reasons: LEFT [...] #10 cap 11/17/15 [Rx] Hydrocodone Bitart/Apap 5-325 [Mehama 5/325] 1 - 2 tab PO Q4H [...] treatment options are d o nothing, injection, VA-EYE eval or knee scope for debridement. We [...] of meniscus of left knee M23.307 05/06/18 2255 <Electronically signed by Ofe Jay DO> Date Ofeshari Jay Darby Signature: Date (if applicable) CC: 03-Apr-2018 Lower Ext Joint Only (Routine) Result: Comments: See Note; NOTES: [facility] Imaging Services [address] [place] [address] Lower Ext Joint Only (Routine) MR#: [id number] Acct: [id number] Name: SANDRA RATLIFF Rep #: [id number] : 1980 F 37 From: Laurent Amos MD PCP: Michelle Reaves MD Status: REG CLI Study: Lower Ext Joint Only (Routine) Date of Exam: 04/03/18 Exam# [id number] Ordering Dr: Michelle Reaves MD STUDY: MRI [...] Service support , CC: Michelle Reaves MD Research Professor: Signed 31-Mar-2018 PT D/C Summary (1) Result: Comments: See Note; NOTES: [facility] [address] [place] [address]. [address] [place], [place] [id number] Fax REHABILITATION SERVICES [facility] SUMMARY MR#: [id number] Acct: [id number] Name: SANDRA RATLIFF Rep #: [id number] : 1980 37 From: Keri Mack PT, Cert. MDT Referring Dr.: Michelle Reaves MD Status: REG RCR Insurance: [facility] SELF PAY INSURANCE HP - PT D/C [...] please feel free to call me at [phone]. Thank you for the referral of this patient. Sincerely, Keri Mack <Electronically signed by Keri Mcak PT, Cert. MDT> 03/31/18 1407 CC: Michelle Reaves MD ZELDA Signed 04-Mar-2018 Inital Evaluation (1) - PT Result: Comments: See Note; NOTES: [facility] [address] [facility]. [address] [place] [address] Fax REHABILITATION SERVICES INITIAL EVALUATION MR#: [id number] Acct: [id number] Name: SANDRA RATLIFF Rep #: [id number] : 1980 37 From: Keri Mack PT, [...] - Subjective Encarnacion bjective: Work/Leisure: [employer]. Disability: NO. Present symptoms: INSIDE OF LEFT [...] to be FAXED BACK to us at [phone] for Medicare purposes. Please let me know [...] Views Result: Comments: See Note; NOTES: [facility] Imaging Services [address] [facility] [place] [address] Knee 4 or More Views MR#: [id number] Acct: [id number] Name: SANDRA RATLIFF Rep #: [id number] : 1980 F 37 From: Caity Felix MD PCP: Michelle Reaves MD Status: REG CLI Study: Knee 4 or More Views Date of Exam: 02/08/18 Exam# [id number] Ordering Dr: Michelle Reaves MD STUDY: X-RAY - LEFT KNEE REASON FOR EXAM: Female, 37 years old. [place] pop swelling pain TECHNIQUE: 4 view(s) of [...] Tel , Service support , Fa x [phone] CC: Michelle Reaves MD Research Professor: Signed 22-Nov-2015 Emergency Department Summary Result: Comments: See Note; NOTES: [facility] Medical Records Department [address] [place] [address] Emergency Department Summary MR#: [id number] Acct: [id number] Name: SANDRA RATLIFF Rep #: [id number] : 1980 35 From: Bulmaro Rodriguez MD [...] with Dr. Reaves, return with any problems. Ramsey diet, fluids. CLINICAL IMPRESSION: Abdominal pain with nausea and diarrhea. DISPOSITION: Home. MD Chase Odom C: Michelle Reaves MD T: NTS JOB: [id number] 11/22/15 2339 <Electronically signed by Bulmaro Rodriguez MD> Date Bulmaro Rodriguez MD Cosigner Signature (If Indicated): Date CC: Michelle Reaves MD Date Dictated: 11/17/15 1240 Date Transcribed: 11/17/15 124 Research Professor: Signed 22-Nov-2015 Small Bowel Series Only Result: Comments: See Note; NOTES: [facility] Imaging Services [address] [place] [address] Verdana 4d Small Bowel Series Only MR#: [id number] Acct: [id number] Name: HER SANDRA MCKEON Rep #: [id number] : 1980 F 35 From: Leigha Colon MD PCP: Michelle Reaves MD Status: REG CLI Study: Small Bowel Series Only Date of Exam: 11/22/15 Exam# [id number] Ordering Dr: Michelle Medina MD STUDY: AIR-CONTRAST [...] spot views were obtained COMPARISON: None. 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 Electronically Signed: Leigha Colon MD at 16:48 E DT Tel , Service support [phone], CC: Michelle Reaves MD Research Professor: Signed 17-Nov-2015 Discharge Instruction Result: Comments: See Note; NOTES: [facility] Medical Records Department [address] [place] [address] Discharge Instruction 11/17/15 1236 MR#: [id number] Acct: [id number] Name: SANDRA RATLIFF Rep #: [id number] : 1980 35 From: Bulmaro Rodriguez MD PCP: Michelle Reaves MD Status: REG ER ED Disposition - Plan for ED Patient: Disposition: Home or Assisted Living Chief Complaint: Abd Pain Instructions: ED Abdominal Pain, Unknown Cause, (Female), ED Vomiting And Diarrhea, Nonspecific (Adult) Prescriptions: Hydrocodone Bitart/Apap 5-325 [Mehama 5/325] 1 - 2 t ablet PO [...] problems, contact your doctor. Call [facility] ([phone]) or report to the closest [facility] Room. Call 911 if necessary. 11/17/15 1238 <Electronically signed by Bulmaro Rodriguez MD> Date Bulmaro [place] (If Indicated): Date CC: Michelle Reaves MD 17-Nov-2015 Abdomen/Pelvis WITH Contrast Result: Comments: See Note; NOTES: [facility] Imaging Services [address] [place] [address] Verdana 4d Abdomen/Pelvis WITH Contrast MR#: [id number] Acct: [id number] Name : SANDRA RATLIFF Rep #: [id number] : 1980 F 35 From: Isaac Espinoza MD PCP: Michelle Reaves MD Status: [facility] ER Study: Abdomen/Pelvis WITH Contrast Date of Exam: 11/17/15 Exam# [id number] O rdering Dr: Bulmaro Rodriguez MD STUDY: CT ABDOMEN AND PELVIS WITH CONTRAST REASON FOR EXAM: Female, 35 years old. Mid lower abdominal pain. Diarrhea and nausea. RADIATION DOSAGE (If Supplied By [facility]): CTDIvol = ( 18.40 ) [...] is made with prior study dated [facility] 2015. FINDINGS: The visualized lung bases are unremarkable. Calcified granuloma in the anterior aspect of the lingular segment of the left upper lobe. The visualized portions of the heart are within normal limits. There is decreased attenuation of the liver consistent with steatosis. The patient is status post cholecystectomy. Normal spleen. Latoay l pancreas. Normal bilateral adrenal glands. Normal [...] Isaac Espinoza MD at 12:27 EDT Tel [phone], Service support [phone], CC: Michelle Reaves MD; Bulmaro Rodriguez MD Research Professor: Signed 13-Nov-2015 Operative Report Result: Comments: See Note; NOTES: [facility] Medical Records Department [address] [place] [address] Operative Report MR#: [id number] Acct: [id number] Name: LANNYNITIN Rep #: [id number] : 1980 35 From: Vi Sanchez MD [...] complications. Vi Sanchez MD T: NTS JOB: [id number] 11/13/15939 <Electronically sig shawn by Vi Sanchez MD> Date Vi Sanchez MD Cosigner Signature (If Indicated): Date C C: Michelle Reaves MD; Vi Sanchez MD Date Dictated: 11/07/15910 Date Transcribed: 11/07/15910 Research Professor: Signed 31-Aug-2015 Abdomen Single View Result: Comments: See Note; NOTES: [facility] Imaging Services [address] [place] [address] Verda 4d Abdomen Single View MR#: [id number] Acct: [id number] Name: SANDRA RATLIFF Rep #: [id number] : 1980 F 35 From: Isaac Espinoza MD PCP: Michelle Reaves MD Status: REG CLI Study: Abdomen Single View Date of Exam: 08/31/15 Exam# [id number] Ordering Dr: Kirsten Arias STUDY: X-RAY - [...] Isaac Espinoza MD at 13:18 EST Tel [phone], Service support [phone], RAD/Abdomen Single View IMPRESSION: Normal x-ra y examination of the abdomen and pelvis. Electronically Signed: Isaac Espinoza MD at 13:18 EST Tel [phone], Service support [phone], CC: Kirsten Arias ; Michelle Reaves MD Research Professor: Signed 29-Jul-2015 Transvaginal Non- Result: Comments: See Note; NOTES: [facility] Imaging Services [address] [place] [address] Verdana 4d Transvaginal Non- MR#: [id number] Acct: [id number] Name: SANDRA ZAVALA Rep #: [id number] : 1980 F 35 From: Isaac Espinoza MD PCP: Michelle Reaves MD Status: REG CLI Study: Transvaginal Non- Date of Exam: 07/29/15 Exam# [id number] Orderi ng Dr: Michelle Reaves MD STUDY: [...] Isaac Espinoza MD at 14:01 EST Tel [phone], Service support [phone], CC: Michelle Reaves MD Research Professor: Signed 29-Jul-2015 Pelvic (Non ) Result: Comments: See Note; NOTES: [facility] Imaging Services [address] [place] [address] Verdana 4d Pelvic (Non ) MR#: [id number] Acct: [id number] Name: SANDRA BELLE Rep #: [id number] : 1980 F 35 From: Isaac Espinoza MD PCP: Michelle Reaves MD Status: REG CLI Study: Pelvic (Non ) Date of Exam: 07/29/15 Exam# [id number] Ordering Dr: Michelle Ponce MD STUDY: ULTRASOUND [...] Isaac Espinoza MD at 14:01 EST Tel [phone], Service support [phone], CC: Michelle Reaves MD Research Professor: Signed 25-Jul-2015 Abdomen/Pelvis WITH Contrast Result: Comments: See Note; NOTES: [facility] Imaging Services [address] [place] [address] Verdana 4d Abdomen/Pelvis WITH Contrast MR#: [id number] Acct: [id number] Name : SANDRA RATLIFF Rep #: [id number] : 1980 F 35 From: Isaac Espinoza MD PCP: Michelle Reaves MD Status: REG CLI Study: Abdomen/Pelvis WITH Contrast Date of Exam: 07/25/15 Exam# [id number] Ordering Dr: Michelle Reaves MD STUDY: CT [...] Isaac Espinoza MD at 9:19 EST Tel [phone], Service support [phone], CC: Michelle Reaves MD Research Professor: Signed 07-Jul-2015 Abdomen Limited Result: Comments: See Note; NOTES: [facility] Imaging Services [address] [address] Wichodana 4d Abdomen Limited MR#: [id number] Acct: [id number] Name: JEANNIE RATLIFF Rep #: [id number] : 1980 F 35 From: Leigha Colon MD PCP: Michelle Reaves MD Status: REG CLI Study: Abdomen Limited Date of Exam: 07/07/15 Exam# [id number] Ordering Dr: Michelle Reaves MD STUDY: ABDOMINAL [...] at 16:22 EST Tel , Service support [phone], CC: Michelle Reaves MD Research Professor: Signed 22-Apr-2015 OT Discharge Summary Result: Comments: See Note; NOTES: [facility] Occupational Therapy [facility] [address]. [address] [place] [address] Fax REHABILITATIO N SERVICES DISCHARGE SUMMARY MR#: [id number] Acct: [id number] Name: SANDRA RATLIFF Rep #: [id number] : 1980 34 From: Bernarda De La [...] However, she did make some improvements. 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 She was reporting independence with act ivities of daily living at this time. The patient was last seen on January 11, 2015, no further appointments were indicated. At this time, the patient is discharged. Bernarda De La Vega, OTR/L T: NTS JOB: [id number] <Electronically signed by Bernarda De La Vega > 04/22/15 1057 CC: Signed 10-Feb-2015 Operative Report Result: Comments: See Note; NOTES: [facility] Medical Records Department [address] [place] [address] Operative Report 02/02/15 1305 MR#: [id number] Acct: [id number] Name: L[place] SANDRA LAMAS Rep #: [id number] : 1980 34 From: Vi Sanchez MD PCP: Michelle Reaves MD Status: DEP [facility] Y Location: [facility] Report of Operation Date of Procedure: 02/02/15 Pre-Operative Diagno sis: cholelithiasis, cholecystitis Post-Operative Diagnosis: same Surgery/Procedure Performed:: laparoscopic cholecystectomy with cholangiogram fly raiser lockstitch: NOT,DEFINED Type of Anesthesia:: General Anesthesiologist: Aide [...] Electrocardiogram Result: Comments: See Note; NOTES: [facility] Cardiovascular Services [address] [place], [place] [address] [address] 12 Lead EKG 02/02/15 1129 MR#: [id number] Acct: [id number] Name: ELISABETH RATLIFF Rep #: [id number] : 1980 34 From: Stephane Boyle MD Attending Dr: Vi Sanchez MD Status: [facility] Ordering Dr: Buzz Collins MD Date: 02/02/15 Location: [facility] Sex: F C Admitted: Test Penrose son : PRE OP Blood Pressure : / mmHG Vent. Rate : 074 BPM Atrial Rate : 074 BPM P-R Int : 134 ms QRS Dur : 110 ms QT Int : 378 ms P-R-T Axes : 051 071 046 degrees QTc Int : 419 ms Normal sinus rhythm Normal ECG No previous ECGs available Confirmed by STEPHANE BOYLE MD ([id number]), graphic editor JASMIN RAMOS ([id number]) on 02/04/2015 10:20:06 AM Referred By: LALO Confirmed By:STEPHANE BOYLE MD 1020 Date Stephane Boyle MD CC: Michelle Reaves MD Date Dictated: 02/02/15 1129 Date Transcribed: 02/02/15 112 Research Professor: Signed 04-Feb-2015 Emergency Department Summary Result: Comments: See Note; NOTES: [facility] Medical Records Department [address] [place] [address] Emergency Department Summary MR#: [id number] Acct: [id number] Name: SANDRA BELLE Rep #: [id number] : 1980 34 From: Naldo Schaeffer MD PCP: Michelle Reaves MD Status: [facility] ER DATE OF SERVICE: 02/01/2015 CHIEF COMPLAINT: [...] C: Michelle Reaves MD T: NTS JOB: [id number] 02/04/15 0552 <Electronically signed by Naldo Schaeffer MD> Date Naldo quintanilla MD CC: Michelle Reaves MD Date Dictated: 02/01/15536 Date Transcribed: 02/01/15536 Research Professor: Signed 02-Feb-2015 Discharge Instruction Result: Comments: See Note; NOTES: [facility] Medical Records Department [address] [place] [address] Instructions for Home/Discharge Instructions 02/02/15 1305 MR#: [id number] ct: [id number] Name: SANDRA RATLIFF Rep #: [id number] : 1980 34 From: Vi Sanchez MD PCP: Michelle Reaves MD Status: REG [facility] Discharge Diet: No Restrictions - drink plenty [...] for date and time, thank you 02/02/15 0745 <Electronically deangelo d by Vi Sanchez MD> Date Vi Sanchez MD CC: Michelle Reaves MD 02-Feb-2015 History and Physical Exam Result: Comments: See Note; NOTES: [facility] Medical Records Department [address] [place] [address] History and Physical 02/02/15 1155 MR#: [id number] Acct: [id number] Name: SANDRA RATLIFF Rep #: [id number] : 1980 34 From: Vi Sanchez MD PCP: Michelle Reaves MD Status: REG [facility] Y Location: [place] [address] History and Physical - Blank Date of Admission: 02/02/15 P [facility] Provider: Dr. Reaves History of Present [...] Morbid obesity, class III Past Surgical History: [place] teeth extraction C section 2010 Past injuries: [...] 77 / minute Resp: 18 per min cheesh-na BP sittin / 83 General: well developed, [...] Gallbladder Result: Comments: See Note; NOTES: [facility] Imaging Services [address] [place] [address] Ultrasound Report MR#: [id number] Acct: [id number] Name: SANDRA RATLIFF Rep #: : 1980 F 34 From: Deonte Woods DO PCP: Michelle Reaves MD Status: REG CLI Study: Gallbladder Date of Exam: 02/01/15 Exam# [id number] Ordering Dr: Michelle Reaves MD STUDY: ABDOMINAL [...] Deonte Woods DO at 17:18 EDT Tel [phone], Service suppor t [phone], N.B. : The above information has been verbally conveyed by Deonte Woods DO to Michelle Reaves MD, Referring Physician, on 02/01/2015 17:24:35 (ET). CC: Michelle Reaves MD Research Professor: Signed 01-Feb-2015 Discharge Instruction Result: Comments: See Note; NOTES: [facility] Medical Records Department [address] [place] [address] Discharge Instruction 02/01/15 0534 MR#: [id number] Acct: [id number] Name: SANDRA RATLIFF Rep #: [id number] : 1980 34 From: Naldo Schaeffer MD [...] unex pected problems, contact your doctor. Call [facility] ([phone]) or report to the closest Emergency Room. Call 911 if necessary. 02/01/15 0535 <Electronically signed by Abdullahi Schaeffer MD> Date Naldo Schaeffer MD Cosigner Signature (If Indicated): Date CC: Michelle Reaves MD 18-Nov-2014 Initial Evaluation - OT Result: Comments: See Note; NOTES: [facility] Occupational Therapy Health[address] [place] [address] Fax REHABILITATION SERV ICES INITIAL EVALUATION MR#: [id number] Acct: [id number] Name: SANDRA RATLIFF Rep #: [id number] : 1980 34 From: Bernarda De La Vega Referring DrMagdy: Ofe Jay DO Status: REG RCR Insu elly: [facility] Date: DATE OF SERVICE: PHYSICIAN: Ofe Jay [...] Right ulnar deviation 10, left 30. Right advertising layout worker strength is 35 pounds, left is 70 [...] The patient will demonstrate increase in right advertising layout worker strength to 65 pounds or greater to [...] De La Vega, OTR/L T: EMILY JOB: [id number] <Electronically signed by Bernarda De La Vega & #62; 11/18/14 0927 CC: Signed For Medicare only, by signing this I certify the plan of care. Physicians Signature Date 04-Nov-2014 Wrist min 3 Views Result: Comments: See Note; NOTES: [facility] Imaging Services [address] [address] Radiology Report MR#: [id number] Acct: [id number] Name: SANDRA RATLIFF Rep #: [id number] : 1980 F 34 From: Catrachito Wren MD PCP: Michelle Reaves MD Status: REG CLI Study: Wrist min 3 Views Date of Exam: 11/04/14 Exam# [id number] Ordering Dr: Ofe Jay DO STUDY: X-RA [...] MD at 14:57 EDT , Service support [phone], RAD/Wrist min 3 Views IMPRESSION: Normal x-ray examination of the wrist. Electronically Signed: Catrachito rWen MD at 14:57 EDT , Service support [phone], Fax CC: Ofe Jay DO; Michelle Reaves MD Research Professor: Signed Immunization Name Dates Details Tdap (7 years and up) on: 30-Jun-2017 Comments: [facility] Family History Unknown Family Member Name Dates Details Brother 1 Comments: healthy Status: Active Father Comments: hx. [place] (age 50) CABGx3, heart disease Status: Active [...] use. 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 Aries [phone] Status: Active Exercise History: Exercises occasionally. Comments: [...] kg/m2 Body Surface Area Calculated 2.55 m2 98-Sca-43079:17 Temperature 97.9 f Comments: Method: Temporal Pulse [...] in this mix are: Blue mussel Fish Chandler Shrimp Tuna EGG, WHOLE <0.10 kU/L (Normal) CHOCOLATE <0.10 kU/L (Normal) Comments: Performed at: [address] [id number] Director: aDvide Jordan MD, Phone: [phone] BEEF <0.10 kU/L (Normal) PORK <0.10 kU/L (Normal) SOYBEAN <0.10 kU/L (Normal) PEANUT <0.10 kU/L (Normal) CORN <0.10 kU/L (Normal) WHEAT <0.10 kU/L (Normal) MILK (COW) <0.10 kU/L (Normal) :43 CBC-Complete Blood Cnt No Diff Comments: [facility] [address] [facility] [address] [place], [place], [address] ; fu 10-5 DB MPV 10.0 fL [...] Range: 4.4-11.0 :43 Comprehensive Metabolic Profil Comments: [facility] [address] [facility] [address] [place], [place], [address] GAP 10 (Normal) Range: 5-15 CO2 27.0 [...] Comments: Please note revised GLUCOSE reference range tcbcexxsl52/02/2018. :43 T4 Free Direct Comments: [facility] [address] [facility] [address] [place], [place], [address] T4 FREE DIRECT 1.04 ng/dL (Normal) Range: 0.76-1.46 :43 Thyroid Stim Hormone (TSH) Comments: [facility] [address] [place], [place], [address] TSH 2.11 {uIU/mL} (Normal) Range: 0.358-3.74 :43 Vitamin D,25 Hydroxy Comments: [facility] [address] [place], [address] Vitamin D 25-OH 30.2 ng/mL (Normal) Range: 29.95-100.01 Comments: Vitamin D 25(OH) Status Range Deficiency <20 ng/mL (50nmol/L) Insuffciency 20 - 30 ng/mL (50 - 75 nmol/L) Sufficiency 30 - 100 ng/mL (75 - 250 nmol/L) Toxicity >100 ng/mL (>250 nmol/L) 1-Pfq-823037:16 NuSwab Vaginitis Plus Comments: PATIENT NOT FASTINGPERFORMED BY: [facility] [id number] Information: SRC:CE (trich/BV/GC/linda W/O Herpes) (39848) Neisseria gonorrhoeae, Negative (Normal) ROBERT Chlamydia trachomatis, Negative (Normal) ROBERT Trich vag by ROBERT Negative (Normal) Mercedes glabrata, ROBERT Negative (Normal) Comments: This test was developed and its performance characteristics determinedby [facility]. It has not been cleared or approved [...] was developed and its performance characteristicsdetermined by [facility]. It has not been cleared or approvedby the Food and Drug Administration. The FDA has determinedthat such clearance or approval is not necessary. BVAB 2 Low - 0 {Score} (Normal) Atopobium vaginae Low - 0 {Score} (Normal) 1-Zuz-065764:16 HPV automatic Comments: Source.............Cervix;EndocervixNo. of containers..01 ThinPrep VialPATIENT NOT FASTINGPERFORMED BY: WB [facility] [id number] BY: =G [facility] ([address]) [facility] [id number] Information: [id number] HPV, high-risk Negative Comments: This high-risk HPV [...] metaplasticcells (endocervical com ponent) are present.Z01.419Nathaly Reese Filenet Developer (ASCP) 09-May-20178:25 URINE AUTUMN CULTURE-IDENTIFICATN Comments: PATIENT NOT FASTINGPERFORMED BY: CB [facility] Jjpaxz9725 [employer] [place] [id number] (18374) Antimicrobial MIHEAD (Normal) Comments: S = Susceptible; [...] Urine Final report Culture,Comprehensive (Abnormal) 09-May-20178:25 URINALYSIS (88797) Comments: PATIENT NOT FASTINGPERFORMED BY: CB [facility] Zvkzya8069 [facility] [id number] Information: SRC:UC Microscopic Examination MICNIP (Normal) Comments: Microscopic not indicated and not performed. Nitrite, Urine Negative (Normal) Urobilinogen,Semi-Qn 0.2 mg/dL (Normal) Range: 0.2-1.0 Bilirubin Negative (Normal) Occult Blood Negative (Normal) Ketones Negative (Normal) Glucose Negative (Normal) Protein Negative (Normal) WBC Esterase Negative (Normal) Appearance Clear (Normal) Urine-Color Yellow (Normal) pH 5.5 (Normal) Range: 5.0-7.5 Specific Goodell 1.022 (Normal) Range: 1.005-1.030 :35 CBC, Platelets & Auto Diff Comments: PATIENT NOT FASTINGPERFORMED BY: LabCoRobert Wood Johnson University Hospital SomersetHuwwcd4965 [facility] [id number] Information: NURSE DRAW (27697) Immature Grans (Abs) 0.0 {x10E3/uL} (Normal) Range: [...] Panel, Comprehensive Comments: PATIENT NOT FASTINGPERFORMED BY: Calera Oqlfhm5204 [facility]riveOnEC[facility] [id number] (07896) ALT (SGPT) 18 [iU]/L (Normal) Range: 0-32 [...] (Abnormal) Range: 65-99 :35 T3, FREE (TRIDOTHYRONINE) (26141) Comments: PATIENT NOT FASTINGPERFORMED BY: Calera Uzeoaq7693 AmosBooktropeECU Health [facility] [id number] Triiodothyronine,Free,Serum 3.7 pg/mL (Normal) Range: 2.0-4.4 :35 T4, FREE (THYROXINE) (43953) Comments: PATIENT NOT FASTINGPERFORMED BY: CaleraRobert Wood Johnson University Hospital SomersetLxdllm4064 [facility] [address] [id number] T4,Free(Direct) 1.07 ng/dL (Normal) Range: 0.82-1.77 79-Jdw-264377:15 HgA1C , Office (19624) HgA1C , Office 5.5 % (Normal) Range: 4.6 - 7.1 91-Dzc-318358:33 METABOLIC PANEL, Comments: PATIENT WAS FASTINGPERFORMED BY: LabRonald [place] 103387 [facility] [id number] BY: LabPrinciple PowerRobert Wood Johnson University Hospital SomersetWzlkrh2328 [address] [id number] COMPREHENSIVE (07377) ALT (SGPT) 21 [iU]/L (Normal) Range: 0-32 [...] Glucose, Serum 88 mg/dL (Normal) Range: 65-99 11-Ebv-146025:33 LIPOPROTEIN, BLD, BY NMR Comments: PATIENT WAS FASTINGPERFORMED BY: BN [facility] Hayaqflakb7366 [facility] [id number] BY: CB [facility] Aeywcu6425 [address] [id number]; fu 8-1 db (40062) LP-IR Score 72 (Abnormal) Comments: INSULIN RESISTANCE MARKER <--Insulin Sensitive Insulin Resistant--> Percentile in Reference PopulationInsulin Resistance ScoreLP-IR Score Low 25th 50th 75th High <27 27 45 63 >63LP-IR Score is inaccurate if patient is non-fasting. .The LP-IR score is a laboratory developed i [facility] that has beenassociated with insulin resistance and [...] were developed and their performance characteristicsdetermined by [employer]. These assays have not been cleared by [...] 1600 - 2000 Very High > 2000 00-Alo-984837:33 CBC with auto diff Comments: PATIENT WAS FASTINGPERFORMED BY: BN [facility] [address] [id number] BY: CB [facility] Uwdazx5195 [address] [id number] (36369) Immature Grans (Abs) 0.0 {x10E3/uL} (Normal) Range: [...] 3.77-5.28 WBC 9.2 {x10E3/uL} (Normal) Range: 3.4-10.8 04-Afz-449469:33 CALCIFIDIOL (58699) VIT D Comments: PATIENT WAS FASTINGPERFORMED BY: [facility] [address] [id number] BY: [employer] Wvntuv5049 Amos [facility] [id number] Vitamin D, 25-Hydroxy 51.8 ng/mL (Normal) Range: 30.0-100.0 Comments: Vitamin D deficiency has been defined by the [place] of[place]icine and an Endocrine Society practice guideline as alevel of serum 25-OH vitamin D less than 20 ng/mL (1,2).The Endocrine Society went on to further define vitamin Dinsufficiency as a level between 21 and 29 ng/mL (2).1. IOM ([place] of Medicine). 2010. Dietary reference intakes for calcium and D. [place]: The National Academies Press.2. Clari MF, Jose LEES, Ash NETTLES, et al. Evaluation, treatment, and prevention of vitamin D deficiency: an Endocrine Society clinical practice guideline. JCEM. 2010; 96(7):1911-30. :38 AUTUMN CULTURE-OTHER (39289) Comments: PATIENT NOT FASTINGPERFORMED BY: CaleraRobert Wood Johnson University Hospital SomersetRvxdrw53[address] [place] [address] [id number] Information: SRC: Result 1 RRF (Normal) Comments: Routine respiratory juan Upper Respiratory Culture Final report (Normal) 56-Ncn-56803:32 AUTUMN CULTURE-OTHER (21220) Comments: PATIENT NOT FASTINGPERFORMED BY: [facility] Wgwjiq1557 Bette Villalobos [place] [id number] Information: SRC:TH Result 1 RRF (Normal) Comments: Routine respiratory juan Upper Respiratory Culture Final report (Normal) 09-Lsc-246740:35 Rapid Strep Test, Office (32251) Rapid Strep Test, Office Negative (Normal) 67-Cnm-859394:39 CBC W/Diff, Automated Comments: [facility] Yzeabwzcsu8477 [place], [address] Absolute Lymph 3.19 {X10_3/ul} (Normal) Range: 0.83-4.51 [...] Range: 4.4-11.0 :39 Prothrombin Time w/INR Comments: [facility] Helzqjxxjq6252 [address] [place], [place], [address] INR 1.0 (Normal) PROTIME 12.9 s (Normal) Range: 11.7-14.9 :58 CBC, Platelets & Auto Comments: PATIENT NOT FASTINGPERFORMED BY: [facility] Rbanqq6872 [address] [id number] Information: [id number] Diff (50936) Immature Grans (Abs) 0.0 {x10E3/uL} (Normal) Range: [...] (Normal) Range: 3.4-10.8 :58 T3, FREE (TRIDOTHYRONINE) (85664) Comments: PATIENT NOT FASTINGPERFORMED BY: [facility] [id number] Triiodothyronine,Free,Serum 3.2 pg/mL (Normal) Range: 2.0-4.4 :58 T4, FREE (THYROXINE) (71844) Comments: PATIENT NOT FASTINGPERFORMED BY: [address] [id number] T4,Free(Direct) 1.07 ng/dL (Normal) Range: 0.82-1.77 :58 TSH (85663) Comments: PATIENT NOT FASTINGPERFORMED BY: [facility]6[address] [id number] TSH 2.830 {uIU/mL} (Normal) Range: 0.450-4.500 :58 HELICOBACTER PYLORI ANTIBODY Comments: PATIENT NOT FASTINGPERFORMED BY: [facility] [id number] (53176) H. pylori, IgG Abs <0.9 U/mL (Normal) Range: 0.0-0.8 Comments: Negative <0.9 Indeterminate 0.9 - 1.0 Positive >1.0 :46 Testosterone, Free+Total Comments: PATIENT NOT FASTINGPERFORMED BY: [facility]1447 [facility] [id number] BY: [facility]6[address] [id number] Information: [id number] LC/MS Free Testosterone(Direct) 1.5 pg/mL Range: 0.0-4.2 (Normal) Testosterone, Total, LC/MS 11.8 ng/dL Range: 10.0-55.0 (Normal) Comments: This test was developed and its performance characteristicsdetermined by [facility]. It has not been cleared or approvedby the Food and Drug Administration. Written Authorization WAR (Normal) Comments: PATIENT NOT FASTINGPERFORMED BY: [facility]1447 [facility] [id number] BY: [facility] [id number] 610:46 Comments: Written Authorization Received.Authorization received from PHILLIP LEIGH LPN 83-15-2265Xxzubx by Chichi Flores 8-Waq-758974:46 CALCIFIDIOL (87793) VIT D 25 Comments: PATIENT NOT FASTINGPERFORMED BY: [facility]6[address] [id number] Vitamin D, 25-Hydroxy 41.9 ng/mL (Normal) Range: 30.0-100.0 Comments: Vitamin D deficiency has been defined by the [place] ofMedicine and an Endocrine Society practice guideline as alevel of serum 25-OH vitamin D less than 20 ng/mL (1,2).The Endocrine Society went on to further define vitamin Dinsufficiency as a level between 21 and 29 ng/mL (2).1. IOM ([place] of Medicine). 2010. Dietary reference intakes for calcium and D. [place]: The National Academies Press.2. Clari MF, Jose NC, Ash NETTLES, et al. Evaluation, treatment, and prevention of vitamin D deficiency: an Endocrine Society clinical practice guideline. JCEM. 2010; 96(7):1911-30. 9-Sod-867032:46 Metabolic Panel, Comments: PATIENT NOT FASTINGPERFORMED BY: [facility]6[address] [id number] Information: [id number] Comprehensive (64762) ALT (SGPT) 21 [iU]/L (Normal) Range: 0-32 [...] Glucose, Serum 81 mg/dL (Normal) Range: 65-99 95-Bcc-253619:16 Cortisol,Urinary Free 24- Comments: PATIENT NOT FASTINGPERFORMED BY: Lab[address] [id number] Information: [id number] VOLUME 1800; fu 8-18 Hour Urine (91486) Cortisol,F,ug/24hr,U 18 {ug/24_hr} (Normal) Range: 0-50 Comments: This test was developed and its performance characteristicsdetermined by [facility]. It has not been cleared or approvedby the Food and Drug Administration. Cortisol,F,ug/L,U 10 ug/L (Normal) 2-Liz-432420:46 HGB A1C (41612) Comments: PATIENT NOT FASTINGPERFORMED BY: LabPaul [facility] [id number] Hemoglobin A1c 5.5 % (Normal) Range: 4.8-5.6 Comments: . Pre-diabetes: 5.7 - 6.4 Diabetes: >6.4 Glycemic control for adults with diabetes: <7.0 51-Koa-117897:13 SEROTONIN (46708) Comments: PATIENT NOT FASTINGPERFORMED BY: [address] [id number] Information: [id number] Serotonin, Serum 10 ng/mL (Normal) Range: 0-420 :42 TSH (THYROID STIMULATING Comments: PATIENT NOT FASTINGPERFORMED BY: [facility] [id number] HORMONE) (24719) TSH 1.560 {uIU/mL} (Normal) Range: 0.450-4.500 :42 CBC, PLATELETS & MANUAL Comments: PATIENT NOT FASTINGPERFORMED BY: [facility] [id number] Information: [id number] DIFF (35161) Immature Grans (Abs) 0.0 {x10E3/uL} (Normal) Range: [...] 3.77-5.28 WBC 8.2 {x10E3/uL} (Normal) Range: 3.4-10.8 66-Hsc-94481:42 ESR-F (SED RATE ERYTHROCYTE - Comments: PATIENT NOT FASTINGPERFORMED BY: [facility] [id number] FEMALE) (29243) Sedimentation Rate-Westergren 25 mm/h (Normal) Range: 0-32 04-Eou-59083:42 PREALBUMIN (39160) Comments: PATIENT NOT FASTINGPERFORMED BY: [facility] [id number] Prealbumin 28 mg/dL (Normal) Range: 9-31 Comments: [...] - 36 >70 years 9 - 32 74-Szt-875561:45 Urinalysis, Complete Comments: Order Date: 11/17/15How was Urine Obtained? MANAGER FASHION TO [facility] Ueczcujbld[address] [place], [place], [phone] MUCUS, URINE 0 SEEN {/hpf} (Normal) BACTERIA [...] CLARITY Sl. Cloudy (Normal) COLOR Yellow (Normal) 89-Csr-46819:08 CBC W/Diff, Automated Comments: [facility] Tbcvxlebdm8311 [address]. [place], [place], [address] Absolute Lymph 1.81 {X10_3/ul} (Normal) Range: 0.83-4.51 [...] Range: 4.4-11.0 :08 Comprehensive Metabolic Profil Comments: [facility] Bnwxodrvvf1294 [address] [place], [place], [address] GAP 6 (Normal) Range: 5-15 CO2 27.0 [...] mg/dL (Normal) Range: 70-110 :08 Lipase Comments: [facility] Zyalmzndqs[address] [place], [place], [address] LIPASE 160 U/L (Normal) Range: 73-393 :08 ,Serum,hCG Quali. Comments: [facility] Iozjxsecbb[address] [place], [place], [address] HCGSQUAL NEGATIVE {Negative} Range: 0-9 Nonpreg (Normal) HCG Qual triggr < 1 m[iU]/mL (Normal) 09-Nov-20150:00 LIPOMA (SOFT TISSUE) See Note (Normal) Comments: [facility] [address] [place], [place], [address] Comments: Patient: SANDRA RATLIFF : 1980 (35/F) Acct Num: [id number] Phys: Yohan HARGROVE,Vi Unit Num: [id number] Loc: LABSPEC Specimen: [id number] Received: 11/09/151842 Spec Type: LIPOMA TISSUES TISSUES: GROSS DESCRIPTION Received is one container labeled with the patient name and designated abdominal lesion. The specimen consists of multiple irregular fragm ents of yellow fatty tissue that in aggregate measure 4 x 3 x 1 cm. Precision Lens Grinder portions are submitted in one cassette. / AM:shubham 11/10/15 TC:1 CPT:14838 HEADER OPERATION: Excision upper left a bdominal wall lesion PRE-OP DIAGNOSIS: Upper left abdominal wall lesion TISSUE SUBMITTED: Lipoma of abdominal wall MICROSCOPIC DESCRIPTION Slides are reviewed. MICROSCOPIC DIAGNOSIS Lipo ma of abdominal wall, excision: Mature adipose tissue, consistent with lipoma. SJ:shubham 11/11/15 Signed Yimi Zapata 11/11/15 <signature on file> :50 Culture, Blood (WB) Comments: [facility] Smrscbsiwz9278 [facility]. [place], [place], [phone] CUB See Note (Normal) Comments: BCNo growth in 5 days. 1-Soj-281852:50 Culture, Blood (WB) Comments: [facility] Mzokkcqksk[address] [address] [place], [place], [address] CUB See Note (Normal) Comments: BCNo growth in 5 days. 39-Bxp-36793:08 Urinalysis, Office (33063) UA - LEUKOCYTE ESTERASE Negative (Normal) UA - NITRITE Negative (Normal) URINE UROBILINGN DWAYNE TIMED Normal mg/dL (Normal) UA - PROTEIN 30 mg/dL (Normal) UA - PH 6 (Abnormal) UA - BLOOD Negative (Normal) UA - SPECIFIC GRAVITY 1.020 (Normal) UA - KETONES 15 ug/dL (Abnormal) UA - BILIRUBIN Moderate (Normal) UA - GLUCOSE Negative (Normal) 25-Xib-065102:10 Microscopic Examination Comments: PATIENT NOT FASTINGPERFORMED BY: LabCoRobert Wood Johnson University Hospital SomersetFoevby8462 [address] [id number] Bacteria Few (Normal) Mucus Threads Present (Normal) Cast Type Hyaline casts (Normal) Casts Present {/lpf} (Abnormal) Epithelial Cells (non renal) 0-10 {/hpf} (Normal) Range: 0 - 10 RBC 0-2 {/hpf} (Normal) Range: 0 - 2 WBC 6-10 {/hpf} (Abnormal) Range: 0 - 5 80-Lgi-100416:51 ANCA Panel Comments: PATIENT NOT FASTINGPERFORMED BY: [facility] [address] [id number] BY: Calera Nlsdyl0059 [address] [id number] Information: [id number] Atypical pANCA <1:20 {titer} Comments: The atypical [...] follow up testing ofpositive sera with both CO-3 and MPO-ANCA enzyme immunoassays. Asmany as 5% serum samp les are positive only by EIA.Ref. AM J Clin Pathol 1999;111:507-513. Cytoplasmic (C-ANCA) <1:20 {titer} (Normal) Antiproteinase 3 (CO-3) Abs <3.5 U/mL Range: 0.0-3.5 (Normal) Antimyeloperoxidase (MPO) <9.0 U/mL Range: 0.0-9.0 Abs (Normal) Written Authorization WAR (Normal) Comments: PATIENT NOT FASTINGPERFORMED BY: Calera[address] [id number] BY: CaleraRobert Wood Johnson University Hospital SomersetEsotku4045 [address] [id number] 612:51 Comments: Written Authorization Received.Authorization received from ERIKA RUANO LPN 75-20-5937Rouydg by Shalini Ramos 22-Mmk-800130:51 CBC WITH MANUAL DIFF Comments: PATIENT NOT FASTINGPERFORMED BY: [facility] [id number] Information: [id number] (49250) Immature Grans (Abs) 0.0 {x10E3/uL} (Normal) Range: [...] 3.77-5.28 WBC 7.8 {x10E3/uL} (Normal) Range: 3.4-10.8 60-Gqh-305566:10 URINE AUTUMN CULTURE-IDENTIFICATN Comments: PATIENT NOT FASTINGPERFORMED BY: LabPaul [facility] [id number] (58587) Result 1 NG36 (Normal) Comments: No growth in 36 - 48 hours. Urine Culture,Comprehensive Final report (Normal) 81-Mrx-094917:51 COMPLEMENT C4 (64315) Comments: PATIENT NOT FASTINGPERFORMED BY: [place] 79018[address] [id number] Complement C4, Serum 50 mg/dL (Abnormal) Range: 14-44 75-Knn-823700:51 COMPLEMENT C3 (88784) Comments: PATIENT NOT FASTINGPERFORMED BY: [address] [id number] Complement C3, Serum 204 mg/dL (Abnormal) Range: 82-167 45-Rrq-465764:58 COMPLEMENT, TOTAL (CH50) Comments: PATIENT NOT FASTINGPERFORMED BY: [address] [id number] Information: [id number] (94622) Complement, Total (CH50) >60 U/mL (Abnormal) Range: 42-60 Comments: Please note reference interval change 23-Xsu-574283:10 URINALYSIS (94419) Comments: PATIENT NOT FASTINGPERFORMED BY: [address] [id number] Information: [id number] Microscopic Examination See below: (Normal) Comments: Microscopic was indicated and was performed. Appearance Cloudy (Abnormal) Urine-Color [place] (Normal) Comments: Unable to read or assay due to color interference. Specific Goodell 1.023 (Normal) Range: 1.005-1.030 34-Sbg-600081:51 HCG Qualitative, Serum (56632) Comments: PATIENT NOT FASTINGPERFORMED BY: [place] 79018[address] [id number] hCG,Beta Subunit,Qual,Serum Negative m[iU]/mL (Normal) 41-Rvy-361577:51 serum free light chains Comments: PATIENT NOT FASTINGPERFORMED BY: [address] [id number] (80974) [place]/Lambda Ratio,S 1.97 (Abnormal) Range: 0.26-1.65 Free Lambda Lt Chains,S 16.13 mg/L (Normal) Range: 5.71-26.30 Free [place] Lt Chains,S 31.85 mg/L (Abnormal) Range: 3.30-19.40 :51 urine immunofixation (23966) Comments: PATIENT NOT FASTINGPERFORMED BY: Rocketick [facility] [id number] IRWIN Interpretation:U UPEIP (Normal) Comments: No monoclonality detected. :51 serum immunofixation (32602) Comments: PATIENT NOT FASTINGPERFORMED BY: Rocketick [facility] [id number] Immunoglobulin M, Qn, Serum 68 mg/dL (Normal) Range: 40-230 Immunoglobulin A, Qn, Serum 192 mg/dL (Normal) Range: 91-414 Immunoglobulin G, Qn, Serum 1229 mg/dL (Normal) Range: 700-1600 Immunofixation Result, Serum IFENOR (Normal) Comments: An apparent normal immunofixation pattern. :51 UPEP (45895) Comments: PATIENT NOT FASTINGPERFORMED BY: Relayr [facility] [address] [id number] Please note: SPRCS (Normal) Comments: Protein electrophoresis scan will follow via computer, mail, orcourier delivery. M-Rene, % Not Observed % (Normal) Gamma Globulin, U 12.1 % (Normal) Beta Globulin, U 23.3 % (Normal) Dhudc-8-Kgbysmto, U 28.7 % (Normal) Obpzf-8-Ymbxdomq, U 4.1 % (Normal) Albumin, U 31.8 % (Normal) Protein,Total,Urine 42.0 mg/dL (Abnormal) Range: 0.0-15.0 :51 P-ANCA & C-ANCA (ANCA Comments: PATIENT NOT FASTINGPERFORMED BY: Sr.Pago[address] [id number] PROFILE) 21536 x2 and 28299 x2 Mitochondrial (M2) Antibody <20.0 {Units} (Normal) Range: 0.0-20.0 Comments: Negative 0.0 - 20.0 Equivocal 20.1 - 24.9 Positive >24.9 . Mitochondrial (M2) Antibodies are found in 90-96% of patients with primary biliary cirrhosis. 03-Qsh-073017:51 C-REACT PROT HIGH SENS(hsCRP) Comments: PATIENT NOT FASTINGPERFORMED BY: Holiday PropanePaul [facility] [id number] (47564) C-Reactive Protein, Cardiac 94.10 mg/L (Abnormal) Range: 0.00-3.00 Comments: Relative Risk for Future Cardiovascular Event Low <1.00 Average 1.00 - 3.00 High >3.00 28-Wow-785296:32 DNA ANTIBODY-NATV/DBL ST (23756) Comments: PATIENT NOT FASTINGPERFORMED BY: [facility] [id number] test code 142727 Anti-DNA (DS) Ab Qn <1 {IU/mL} (Normal) Range: 0-9 Comments: Negative <5 Equivocal 5 - 9 Positive >9 19-Ehu-517586:32 MICROALBUMIN: CREATININE Comments: PATIENT NOT FASTINGPERFORMED BY: [facility] [id number] Information: [id number] RATIO (03295) AND (36562) Microalb/Creat Ratio 28.7 {mg/g_creat} (Normal) Range: 0.0-30.0 Microalbumin, Urine 76.1 ug/mL (Abnormal) Range: 0.0-17.0 Creatinine, Urine 265.3 mg/dL (Normal) Range: 16.0-327.0 61-Grv-554137:32 RPR (RAPID PLASMA REAGIN) Comments: PATIENT NOT FASTINGPERFORMED BY: [facility] [id number] (69786) RPR Non Reactive (Normal) 13-Rdd-628805:26 Systemic Lupus Profile A Comments: PATIENT NOT FASTINGPERFORMED BY: [facility] [id number] Information: 265804,[id number] Anti-DNA (DS) Ab Qn <1 {IU/mL} Range: 0-9 (Normal) Comments: Negative <5 Equivocal 5 - 9 Positive >9 Sjogren's Anti-SS-B 0.4 {AI} (Normal) Range: 0.0-0.9 Sjogren's Anti-SS-A <0.2 {AI} (Normal) Range: 0.0-0.9 Antichromatin Antibodies 0.3 {AI} (Normal) Range: 0.0-0.9 RA Latex Turbid. 13.0 {IU/mL} Range: 0.0-13.9 (Normal) Tariq Antibodies <0.2 {AI} (Normal) Range: 0.0-0.9 LOCAL SALES MANAGER Antibodies 2.7 {AI} Range: 0.0-0.9 (Abnormal) Written Authorization WAR (Normal) Comments: PATIENT NOT FASTINGPERFORMED BY: [facility] Pjgfns5223 [address] [id number] 0:26 Comments: Written Authorization Received.Authorization received from MICHELLE REAVES MD 30-19-8410Aogxut by Devi Biswas 39-Tjq-036300:26 EB ANTIBODY VIRAL CAPSID Comments: PATIENT NOT FASTINGPERFORMED BY: CaleraRobert Wood Johnson [facility] Hospital SomersetEhgqdk7615 [address] [id number] (24672) X2 Interpretation: SPRCS (Normal) Comments: EBV Interpretation [...] <36.0 Equivocal 36.0 - 43.9 Positive >43.9 97-Xha-943820:26 CALCIFIDIOL (62252) VIT D 25 Comments: PATIENT NOT FASTINGPERFORMED BY: CaleraCarlsbad Medical CenterTlbcra8168 [address] [id number] Vitamin D, 25-Hydroxy 48.4 ng/mL (Normal) Range: 30.0-100.0 Comments: Vitamin D deficiency has been defined by the [place] ofMount Carmel Health Systemcine and an Endocrine Society practice guideline as alevel of serum 25-OH vitamin D less than 20 ng/mL (1,2).The Endocrine Society went on to further define vitamin Dinsufficiency as a level between 21 and 29 ng/mL (2).1. IOM ([place] of Medicine). 2010. Dietary reference intakes for calcium and D. [place]: The National Academies Press.2. Clari MF, Jose NC, Ash NETTLES, et al. Evaluation, treatment, and prevention of vitamin D deficiency: an Endocrine Society clinical practice guideline. JCEM. 2010; 96(7):1911-30. 51-Sdj-992921:26 Folate (85706) Comments: PATIENT NOT FASTINGPERFORMED BY: Holiday PropaneMineral Area Regional Medical CenterIvvjwp0249 [address] [id number] Folate (Folic Acid), Serum 8.4 ng/mL (Normal) Comments: A serum folate concentration of less than 3.1 ng/mL isconsidered to represent clinical deficiency. 10-Tge-503588:26 VITAMIN B-12 (CYANOCOBALAMIN) Comments: PATIENT NOT FASTINGPERFORMED BY: [facility] Gzfzyt9685 [address] [id number] (34132) Vitamin B12 280 pg/mL (Normal) Range: 211-946 37-Dtr-545814:26 TSH (80680) Comments: PATIENT NOT FASTINGPERFORMED BY: [facility] Rapoxe3414 [address] [id number] TSH 1.730 {uIU/mL} (Normal) Range: 0.450-4.500 99-Gxc-265925:26 SED RATE ERYTHROCYTE (37165) Comments: PATIENT NOT FASTINGPERFORMED BY: LabCoRobert Wood Johnson University Hospital SomersetZerbod0918 [address] [id number] Sedimentation Rate-Westergren 48 mm/h (Abnormal) Range: 0-32 66-Ekr-833852:26 RHEUMATOID FACTOR-QUANT (98782) Comments: PATIENT NOT FASTINGPERFORMED BY: [facility] Hmpzyk7169 [address] [id number] RA Latex Turbid. 13.3 {IU/mL} (Normal) Range: 0.0-13.9 15-Dcq-743854:26 METABOLIC PANEL, Comments: PATIENT NOT FASTINGPERFORMED BY: LabCoRobert Wood Johnson [facility] Hospital SomersetVisttv8968 [address] [id number] Information: [id number] COMPREHENSIVE (61107) ALT (SGPT) 21 [iU]/L (Normal) Range: 0-32 [...] Glucose, Serum 101 mg/dL (Abnormal) Range: 65-99 79-Esd-091382:26 C-REACTIVE PROTEIN (08209) Comments: PATIENT NOT FASTINGPERFORMED BY: [facility] Pgykqc6782 [facility] [address] [id number] C-Reactive Protein, Quant 157.4 mg/L (Abnormal) Range: 0.0-4.9 :26 CBC (AUTO) (67514) Comments: PATIENT NOT FASTINGPERFORMED BY: [facility] Gphjsl4470 [address] [id number] Platelets 275 {x10E3/uL} (Normal) Range: 150-379 RDW 13.4 % (Normal) Range: 12.3-15.4 MCHC 33.9 g/dL (Normal) Range: 31.5-35.7 MCH 29.6 pg (Normal) Range: 26.6-33.0 MCV 87 fL (Normal) Range: 79-97 Hematocrit 39.2 % (Normal) Range: 34.0-46.6 Hemoglobin 13.3 g/dL (Normal) Range: 11.1-15.9 RBC 4.50 {x10E6/uL} (Normal) Range: 3.77-5.28 WBC 13.8 {x10E3/uL} (Abnormal) Range: 3.4-10.8 :26 KWAN (ANTINUCLEAR ANTIBODY) Comments: PATIENT NOT FASTINGPERFORMED BY: [facility] Piptph6821 [facility] [address] [id number] (86697) KWAN Direct Positive (Abnormal) 09-Igt-402711:21 Sed Rate Erythrocyte (39840) Comments: PATIENT NOT FASTINGPERFORMED BY: [facility] Rfyfgb9711 [address] [id number] Sedimentation Rate-Westergren 20 mm/h (Normal) Range: 0-32 64-Ugl-989530:21 Metabolic Panel, Comprehensive Comments: copy to Dr. sanchez; PATIENT NOT FASTINGPERFORMED BY: [facility] Ynfobp4204 Cinemagram [facility] HealthCS ProductsHaywood Regional Medical Center [id number] (06992) ALT (SGPT) 23 [iU]/L (Normal) Range: 0-32 [...] Glucose, Serum 112 mg/dL (Abnormal) Range: 65-99 25-Lnn-216000:21 CBC, Platelets & Auto Comments: PATIENT NOT FASTINGPERFORMED BY: [facility] Guihnn1673 [facility] [address] [id number] Information: [id number] Diff (91866) Immature Grans (Abs) 0.0 {x10E3/uL} (Normal) Range: [...] 3.77-5.28 WBC 11.0 {x10E3/uL} (Abnormal) Range: 3.4-10.8 68-Rus-890370:21 Lipase (08135) Comments: PATIENT NOT FASTINGPERFORMED BY: [facility]CoRobert [facility] [id number] [facility] [id number] Lipase, Serum 33 U/L (Normal) Range: 0-59 84-Mhw-443658:23 GALLBLADDER See Note (Normal) Comments: Test performed at:[facility] Lwmcaqigma[address] [place], [place] [id number] Comments: Patient: SANDRA RATLIFF : 1980 (34/F) Acct Num: [id number] Phys: Vi Sanchez MD Unit Num: [id number] Loc: [facility] Specimen: [id number] Received: 02/02/151541 Spec Type: GALL BLADDE TISSUES [...] average thickness andis free of mass lesions. Precision Lens Grinder sections of the gallbladder and the cystic duct are submitted in one cassette. / AM: 02/03/15 TC:3 CPT: 8 8304 HEADER OPERATION: Lap, cholecystectomy PRE-OP DIAGNOSIS: Calculus of gallbladder with acute cholecystitis TISSUE SUBMITTED: Gallbladder MICROSCOPIC DESCRIPTION Slides are reviewed. MICROSCOPIC DIAGNOSIS Gallbladder, cholecystectomy: Chronic cholecystitis and cholelithiasis. AM: 02/04/15 Signed Tr [facility] 02/04/15 <signature on file> 61-Nle-834142:10 ,Urine Comments: Test performed at:[facility] [address] [place], [place] [address] ; ordered by another doctor HCGUQUAL Negative {Negative} (Normal) Comments: Very dilute urine specimens, as indicated by a low specificgravity, may not contain ict sales representative levels of hCG.If is still suspected, a first morning urinespecimen should be collected 48 hours later and tested. 66-Bub-94538:45 Basic Metabolic Profile (BMP) Comments: Test performed at:[facility] [address] [place] [address] GAP 10 (Normal) Range: 5-15 CO2 26.0 [...] Comments: Please note revised CREATININE reference range ulsjxyxfv33/22/2015. BUN 13 mg/dL (Normal) Range: 7-18 GLU 112 mg/dL (Abnormal) Range: 70-110 Comments: Fasting Glucose result from 110 to <126 mg/dLsuggests IMPAIRED HOMEOSTASIS per A.D.A. criteria. 05-Keu-56181:45 CBC W/Diff, Automated Comments: Test performed at:[facility] [address] [place], [place] [address] Absolute Lymph 4.26 {X10_3/ul} (Normal) Range: 0.83-4.51 [...] Range: 4.4-11.0 :45 Lipase Comments: Test performed at:[facility] [address] [place] [address] LIPASE 136 U/L (Normal) Range: 73-393 :45 Liver Profile Comments: Test performed at:[address] [place] [address] D BILI < 0.05 mg/dL [...] 02/01/15How was Urine Obtained? CLEAN CATCHTest performed at:[facility] [address] [place] [address] HCGUQUAL Negative {Negative} (Normal) Comments: Very dilute urine specimens, as indicated by a low specificgravity, may not contain ict sales representative levels of hCG.If is still suspected, a first morning urinespecimen should be collected 48 hours later and tested. :45 Urinalysis, Complete Comments: Order Date: 02/01/15How was Urine Obtained? CLEAN CATCHTest performed at:[facility] [address] [place] [address] MUCUS, URINE 0 SEEN {/hpf} [...] Clear (Normal) COLOR Yellow (Normal) :45 CALCIFIDIOL (52448) VIT D 25 Comments: PATIENT NOT FASTINGPERFORMED BY: [facility] [id number] Vitamin D, 25-Hydroxy 42.1 ng/mL (Normal) Range: 30.0-100.0 Comments: Vitamin D deficiency has been defined by the [place] ofMedicine and an Endocrine Society practice guideline as alevel of serum 25-OH vitamin D less than 20 ng/mL (1,2).The Endocrine Society went on to further define vitamin Dinsufficiency as a level between 21 and 29 ng/mL (2).1. IOM ([place] of Medicine). 2010. Dietary reference intakes for calcium and D. [place]: The National Academies Press.2. Clari MF, Jose NC, Ash NETTLES, et al. Evaluation, treatment, and prevention of vitamin D deficiency: an Endocrine Society clinical practice guideline. JCEM. 2010; 96(7):1911-30. :45 Metabolic Panel, Basic Comments: PATIENT NOT FASTINGPERFORMED BY: [facility] [address] [employer] [facility] [id number] Information: [id number] (17018) Calcium, Serum 9.6 mg/dL (Normal) Range: 8.7-10.2 [...] Glucose, Serum 100 mg/dL (Abnormal) Range: 65-99 47-Tev-828177:50 Rapid Flu (49441 x 2) Influenza A Ag neg (Normal) :29 LIPID PANEL (58716) Comments: PATIENT WAS FASTINGPERFORMED BY: [facility] [address] [facility] [id number] Information: [id number],[id number] LDL/HDL Ratio 2.6 {ratio_units} (Normal) Range: 0.0-3.2 [...] Metabolic Panel, Comments: PATIENT NOT FASTINGPERFORMED BY: [facility]RP[facility] CenterVxbglo3039 [facility] [id number] Information: 885150,[id number] Comprehensive (11863) ALT (SGPT) 25 [iU]/L (Normal) Range: 0-32 [...] 87 mg/dL (Normal) Range: 65-99 12-Jan-20139:50 CALCIFEDIOL (11432) Comments: PATIENT NOT FASTINGPERFORMED BY: [facility] SomersetRfcipl4071 [facility] [id number] Vitamin D, 25-Hydroxy 42.6 ng/mL (Normal) Range: 30.0-100.0 Comments: Vitamin D deficiency has been defined by the [place] ofMedicine and an Endocrine Society practice guideline as alevel of serum 25-OH vitamin D less than 20 ng/mL (1,2).The Endocrine Society went on to further define vitamin Dinsufficiency as a level between 21 and 29 ng/mL (2).1. IOM ([place] of Medicine). 2010. Dietary reference intakes for calcium and D. [place]: The National Academies Press.2. Clari MF, Jose NC, Ash NETTLES, et al. Evaluation, treatment, and prevention of vitamin D deficiency: an Endocrine Society clinical practice guideline. JCEM. 2010; 96(7):1911-30. :08 CATU tDOP 108 ug/L (Normal) tDOP24 255 {ug/24_hr} (Normal) Range: 0-510 Comments: TESTING PERFORMED AT [facility]. ORIGINAL REPORT ON FILE IN LAB CONTAINS ADDITIONAL TEST SITE INFORMATION. tEPIN24 < 2 {ug/24_hr} (Normal) Range: 0-20 tNORE 16 ug/L (Normal) tNORE24 38 {ug/24_hr} (Normal) Range: 0-135 tEPIN < 1 ug/L (Normal) :08 KWESI 20.48 ug/dL (Normal) Range: 3.09-22.40 Comments: Adult (AM) 4.30 - 22.40 ug/dL Adult (PM) 3.09 - 16.66 ug/dL :08 DHEA 26.2 ug/dL (Abnormal) Range: 98.8-340.0 23-Xqt-362726:08 METAU tMETA 24 ug/L (Normal) tMETA24 57 {ug/24_hr} (Normal) Range: 45-290 Comments: (Hypertensive) >17 years 11 months: 35 - 460 . Please note reference interval change tNORM24 219 {ug/24_hr} (Normal) Range: 82-500 Comments: (Hypertensive) >17 years 11 months: 110 - 1050 tNORM 93 ug/L (Normal) 02-Kya-785074:08 MISC . (Normal) Comments: TEST RESULT JJBWSU26-Nmhbijjhjxqxqzezrcu, MS 17 [place] Pregnenolone, Serum MS < 10 ng/dL Reference Range: Adults: 53 - 357 [facility]. ORIGINAL REPORT ON FILE IN LAB CONTAINS ADDITIONAL TEST SITE INFORMATION. :08 PROL 10.2 ng/mL (Normal) Range: 4.8-23.3 :08 TESTOF <0.2 pg/mL (Normal) Range: 0.0-2.2 Comments: Performed at: - [address] [id number] Director: Davide Jordan MD, Phone: [phone] at: - LabCoDeb[place] [address]Pwm Director: Andra Reyes MD, Phone: [phone] 60-Ans-883725:08 VMA tVMA24 3.1 {mg/24_hr} (Normal) Range: 0.0-7.5 [...] 7-18 GLU 92 mg/dL (Normal) Range: 70-110 35-Jrp-987373:56 VIT D,25 42083 33.7 ng/mL (Normal) Range: 30.0-100.0 Comments: Vitamin D deficiency has been defined by the [place] of[facility] and an Endocrine Society practice guideline as alevel of serum 25-OH vitamin D less than 20 ng/mL (1,2).The Endocrine Society went on to further define vitamin Dinsufficiency as a level between 21 and 29 ng/mL (2).1. IOM ([place] of Medicine). 2011. Dietary reference intakes for calcium and D. [place]: The National Academies Press.2. Clari MF, Jose [place], Ash NETTLES, et al. Evaluation, treatment, and prevention of vitamin D deficiency: an Endocrine Society clinical practice guideline. JCEM. 2010; 96(7): 1911-30.Performed at: [facility] [address] [id number] Director: Andra Reyes MD, Phone: [phone] 12-Cbs-164790:57 MICROALB:CRE UR MALB:CREAT 25.7 {mg/g_CRE} (Normal) MICROALBUMIN,UR 40.9 mg/L (Normal) UR CREAT 159.1 mg/dL (Normal) 5-Ves-059794:09 MYOCARD PERF STRESS/REST MULT Radiology Report See Note (Normal) Comments: EXERCISE MYOCARDIAL PERFUSION SCAN CGYLBKVGxyiel-oyys-elc with a history of hypertension and abnormal EKG. TZSOEMMMO78 mCi of Sestamibi was injected at rest. [...] HARGROVE,Stephane on 03/10/11 1446 Sign by: Tamar HARGROVE,[place] 0-Mim-649466: VIT D,25 25020 28.7 ng/mL Range: 32.0-100.0 10 (Abnormal) Comments: Recent studies consider the lower limit of 32.0 ng/mL to guy threshold for optimal health.Rakan BOWENS. J Nutr. 2004;135(2):317- 22.Performed at: [place] [id number] Director: Andra Reyes MD, Phone: [phone] TSH 2.62 {uIU/mL} Range: 0.358-3.74 :41 (Normal) [...] 7-18 GLU 78 mg/dL (Normal) Range: 70-110 03-Zkw-29863:57 CBCD,SMEAR DIFF RED CELL MORPH SeeNote {NORMAL} [...] BETA STREPTOCOCCUS :28 Rapid Strep Test, Office (37428) Rapid Strep Test, Office Negative (Normal) 1-Oqu-952144:39 HCG QUANT. 34374 m[iU]/mL (Abnormal) 0-Dpo-948388:39 ,SERUM HCGSQUAL SeeNote m[iU]/mL (Normal) Range: 0-9 [...] of hypertension Planned Observations Food Allergy Profile (75511)Indication: Allergic to food (Renamed from Food allergy) On: :28 Request T4, FREE (THYROXINE) (45035)Indication: Abnormal thyroid blood test On: :22 Request TSH (37584)Indication: Abnormal thyroid blood test On: :22 Request CALCIFIDIOL (35278) VIT D 25Indication: Vitamin D deficiency, unspecified On: :22 Request CBC (Auto) (54574)Indication: KWAN positive On: :21 Request Metabolic Panel, Comprehensive (87573)Indication: KWAN positive On: :21 Request Thin prep Pap (49737) (no STD testing)Indication: Well woman exam (Renamed from Encounter for well woman exam) On: :13 Request PT (Prothrobim Time) (62325)Indication: Preop examination On: 39-Tvj-232957:36 Request CBC WITH MANUAL DIFF (40621)Indication: Preop examination On: 42-Hnu-175927:36 Request T4, FREE (THYROXINE) (40966)Indication: Abnormal thyroid blood test On: : Request TSH (98176)Indication: Abnormal thyroid blood test On: : Request CALCIFIDIOL (09610) VIT D 25Indication: Vitamin D deficiency, unspecified On: : Request MICROALBUMIN: CREATININE RATIO (70335) AND (03829)Indication: Proteinuria On: Request METABOLIC PANEL, COMPREHENSIVE (23664)Indication: Antiphospholipid syndrome On: Request CBC with auto diff (01323)Indication: Antiphospholipid syndrome On: Request LIPOPROTEIN, BLD, BY NMR (51273)Indication: Hyperlipidemia, unspecified hyperlipidemia type On: : Request MICROALBUMIN: CREATININE RATIO (68963) AND (27521)Indication: Proteinuria On: 36-Mhm-591213:10 Request LEUKOCYTE COUNT, FECAL (13487)Indication: Abdominal pain, acute On: 34-Dbf-276706:10 Request OVA & PARASITE DIR SMEAR (84979)Indication: Abdominal pain, acute On: 84-Anq-596896:10 Request Clostridium difficile Toxin A+B, EIA (18144)Indication: Abdominal pain, acute On: 58-Dke-007099:10 Request AUTUMN CULTURE-STOOL (02584)Indication: Abdominal pain, acute On: 05-Dew-626575:10 Request Rapid Flu (01466 x 2)Indication: Flu-like symptoms On: 51-Efe-047702:01 Request EB ANTIBODY NUCLR ANTIGN (05566)Indication: Fatigue On: 72-Gir-869460:01 Request Rapid Flu (57374 x 2)Indication: Fever and chills On: 31-Dkp-474547:00 Request POTASSIUM SERUM (58833)Indication: Hypokalemia On: 6-Pqu-644762:48 Request PROLACTIN (82289)Indication: Amenorrhea On: 1-Jvd-545047:56 Request DHEA-S (DEHYDROEPIANDROSTERONE SULFATE) (78698)Indication: Amenorrhea On: 1-Gzr-623857:55 Request TESTOSTERONE FREE (17052)Indication: Amenorrhea On: :55 Request 17-HYDROXYPREGNENOLONE (26153)Indication: Amenorrhea On: :52 Request CORTISOL FREE (66642)Indication: Elevated blood-pressure reading without diagnosis of hypertension On: :49 Request METANEPHRINES - URINE (49966)Indication: Elevated blood-pressure reading without diagnosis of hypertension On: :49 Request CATECHOLAMINES TOTAL, URINE (35173)Indication: Elevated blood-pressure reading without diagnosis of hypertension On: :49 Request URINE VMA (70865)Indication: Elevated blood-pressure reading without diagnosis of hypertension On: :49 Request Metabolic Panel, Basic (85920)Indication: Stress reaction On: :29 Request MICROALBUMIN: CREATININE RATIO (71549) AND (37159)Indication: Unspecified Diagnosis On: 54-Knk-955130:18 Request CALCIFEDIOL (71334)Indication: Elevated blood-pressure reading without diagnosis of hypertension On: 18-Hnu-713579:14 Request TSH (20392)Indication: Elevated blood-pressure reading without diagnosis of hypertension On: 67-Acf-995372:13 Request METABOLIC PANEL, COMPREHENSIVE (87036)Indication: Nausea On: :40 Request Lipase (02625)Indication: Nausea On: 54-Rif-457272:40 Request TEST - SERUM QUANTITATIVE (HCG) (57021)Indication: Amenorrhea On: :40 Request Amylase (82726)Indication: Nausea On: 60-Bzg-283825:40 Request METABOLIC PANEL, COMPREHENSIVE (31950)Indication: Palpitations On: :47 Request CBC WITH MANUAL DIFF (31777)Indication: Palpitations On: :47 Request TSH (21634)Indication: Palpitations On: :47 Request AUTUMN CULTURE-OTHER (64232)Indication: Acute pharyngitis On: :28 Request BHCG (HUMAN CHORIONIC GONADOTROPIN - BETA) (95210)Indication: Amenorrhea On: 68-Dmt-343227:22 Request HCG (HUMAN CHORIONIC GONADOTROPIN) (27888)Indication: Amenorrhea On: 90-Xyd-801268:22 Request Planned Encounters Medical; TIFFANIE 2 Month FU - On: 26-Jun-2018 9:15 [facility] Michelle Reaves MD, MD, Dana M Planned Procedures MRI OF LEFT KNEE WITHOUT CONTRAST On: 20-Feb-2018 Intent (54290)By: Michelle Reaves MD Comments: will plan for 4 weeks. Michelle HARGROVE DRAIN/INJECT MAJOR JOINT OR BURSA On: 10-Feb-2018 Intent (90676)By: Michelle Reaves MD Comments: 2 cc Marcaine lot# [id number] exp 1 cc kenalog lot# [id number] exp rte: left knee intra articular dose: as above given by:Dr. Jensen Hall LPN MD, Dana M Radiology - Knee - Left - Weight On: 07-Feb-2018 Intent BearingBy: Michelle Reaves MD, MD, Dana M SPECIMEN HNDLNG/TRNSPRT, OFFC > LAB On: 18-Jun-2016 Intent (73364)By: Michelle Reaves MD, MD, Dana M SPECIMEN HNDLNG/TRNSPRT, OFFC > LAB On: 04-Jun-2016 Intent (98507)By: Michelle Reaves MD, MD, Dana M Radiology - Small Bowel Series On: 18-Nov-2015 Intent (42210)By: Michelle Reaves MD, MD, Dana M Radiology - KUBBy: Kirsten Arias CNP On: 31-Aug-2015 Intent Comments: call to MCiesa INFUSION, NORMAL SALINE SOLUTION , On: 31-Aug-2015 Intent 1000 CC (Special Coverage Comments: 1000 ccIVleft antecub.tolerated well22 [facility] 57-007jtexp 03/2017RUTH steen Instructions Apply. See MCM: [...] read. ELECTROCARDIOGRAM, COMPLETE (ECG) On: 19-Jan-2014 Intent (84594)By: Michelle Reaves MD, MD, Dana M Eprescribed prescriptions (G8553)By: On: 02-Jun-2013 Intent Long TITLE I DIRECTOR, Kathy L EKG (04535)By: Michelle Reaves MD On: 27-Jan-2013 Intent Michelle Reaves MD Comments: see scanned document of test done to see results reviewed today with patient Eprescribed prescriptions (G8553)By: On: 27-Jan-2013 Intent Long TITLE I DIRECTOR, Kathy L TDAP VACCINE >7 IM (47076)By: Jensen On: 30-Apr-2011 Intent Michelle HARGROVE MD, Dana M FLU VAC, SPLIT, >3 YEARS, INTRAMUSC On: 30-Apr-2011 Intent (19281)By: PHILLIP Leigh Comments: Lot #:[id number] date:mount given:0.5mlRoute: IMSite given:left deltoid Given by: HBryan IMMUNIZ ADMNIN, 1 VAC, SNGL/COMBO On: 30-Apr-2011 Intent (26109)By: PHILLIP Leigh Nuclear Stress Test/Stress On: 05-Mar-2011 Intent SPECT/TreadmillBy: Kirsten Arias CNP ELECTROCARDIOGRAM, COMPLETE (ECG) On: 05-Mar-2011 Intent (16167)By: Kirsten Arias CNP Bio Z (50505)By: Kirsten Arias CNP On: 05-Mar-2011 Intent Holter Moniter (26002)By: Pop HORAN, On: 29-Nov-2010 Intent Atiya EKG (66267)By: Indu Mai LPN On: 29-Nov-2010 Intent Comments: [...] Advance Directives Name Dates Details Immunization Registry [place] - Effective on Effective: 05-Jul-201707/05/2017. Expiration date [...] Nutrition: balanced diet and supplemental vitamins. 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
--- OUTSIDE RECORDS SUMMARY | 2018-08-05 17:31 | XMS RPT_ITS | Continuity of Care Document ---
:1980 Author Organization [facility] Address [address] [address] Phone Care Team Providers Name Role Phone [...] grade fever. Dr. anderson 2-16 and repeat dietitian research negative and labs negative. rightn ow no [...] saw Dr. Josh Lemus [facility] and Dr. Jessica jama at [facility] severe preeclampsia Status: Active Hives (L50.9, 708.9) [...] walk not feel need at much to [facility]. 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 Status: Inactive as of 01-Mar-2014 Elevated WBC [...] 686.9) Comments: went into cellutiis after at [facility] in water. will do soap cleanses [...] resolve on atb and will follow up [facility] ent Status: Resolved as of 10-May-2017 Unspecified [...] Note; NOTES: [facility] [address] [place] [address] OFFICE VISIT Date of Service: 05/06/18 MR#: [id number] Acct: [id number] Name: SANDRA RATLIFF Rep #: [id number] : 1980 Provider: Ofe Jay DO Age/Sex: 37/F Location: [facility] Status: Signed Intake Intake Visit Reasons: LEFT [...] #10 cap 11/17/15 [Rx] Hydrocodone Bitart/Apap 5-325 [Sweetwater 5/325] 1 - 2 tab PO Q4H [...] treatment options are d o nothing, injection, KY-EYE eval or knee scope for debridement. We [...] of meniscus of left knee M23.307 05/06/18 2685 <Electronically signed by Ofe Jay DO> Date Ofeshari Jay Darby Signature: Date (if applicable) CC: 03-Apr-2018 Lower Ext Joint Only (Routine) Result: Comments: See Note; NOTES: [facility] Imaging Services [address] [place] [address] Lower Ext Joint Only (Routine) MR#: [id number] Acct: [id number] Name: SANDRA RATLIFF Rep #: [id number] : 1980 F 37 From: Laurent Amos MD PCP: Michelle Reaves MD Status: REG CLI Study: Lower Ext Joint Only (Routine) Date of Exam: 04/03/18 Exam# [id number] Ordering Dr: Michelle Reaves MD STUDY: MRI [...] Service support , CC: Michelle Reaves MD Sand Analyst: Signed 31-Mar-2018 PT D/C Summary (1) Result: Comments: See Note; NOTES: [facility] Physical Therapy [facility] [address] [place] [address]. [address] [place], [place] [address] Fax [facility]ILITATION [facility] SUMMARY MR#: [id number] Acct: [id number] Name: SANDRA RATLIFF Rep #: [id number] : 1980 37 From: Keri Mack PT, Cert. MDT Referring Dr.: Michelle Reaves MD Status: REG RCR Insurance: [facility] SELF PAY INSURANCE HP - PT [...] please feel free to call me at [phone]. Thank you for the referral of this patient. Sincerely, Keri Mack <Electronically signed by Keri Mack PT, Cert. MDT> 03/31/18 1407 CC: Michelle Reaves MD ZELDA Signed 04-Mar-2018 Inital Evaluation (1) - PT Result: Comments: See Note; NOTES: [facility] Physical Therapy [facility] [address] [facility] [place] [address] Fax REHABILITATION SERVICES INITIAL EVALUATION MR#: [id number] Acct: [id number] Name: SANDRA RATLIFF Rep #: [id number] : 1980 37 From: Keri Mack PT, Cert. 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 Disability: NO. Present symptoms: INSIDE OF LEFT [...] to be FAXED BACK to us at [phone] for Medicare purposes. Please let me know if there are questions or concerns regarding this plan of c are. Physician Signature: Date: <Electronically signed by Keri Mack PT, Cert. MDT> 03/04/18 1248 CC: Michelle Butterfield ZELDA Signed For Medicare only, by signing this I certify the plan of care. Physicians Signature Date 08-Feb-2018 Knee 4 or More Views Result: Comments: See Note; NOTES: [facility] Imaging Services [address] [place] [address] Knee 4 or More Views MR#: [id number] Acct: [id number] Name: SANDRA RATLIFF Rep #: [id number] : 1980 F 37 From: Caity Felix MD PCP: Michelle Reaves MD Status: REG CLI Study: Knee 4 or More Views Date of Exam: 02/08/18 Exam# [id number] Ordering Dr: Michelle Reaves MD STUDY: X-RAY - LEFT KNEE REASON FOR EXAM: Female, 37 years old. [place] pop swelling pain TECHNIQUE: 4 view(s) of [...] Tel , Service support , Fa x [phone] CC: Michelle Reaves MD Sand Analyst: Signed 22-Nov-2015 Emergency Department Summary Result: Comments: See Note; NOTES: [facility] Medical Records Department [address] [place] [address] Emergency Department Summary MR#: [id number] Acct: [id number] Name: SANDRA RATLIFF Rep #: [id number] : 1980 35 From: Bulmaro Rodriguez MD [...] with Dr. Reaves, return with any problems. [facility] [facility] diet, fluids. CLINICAL IMPRESSION: Abdominal pain with nausea and diarrhea. DISPOSITION: Home. MD Chase Odom C: iMchelle Reaves MD T: NTS JOB: [id number] 11/22/15 2339 <Electronically signed by Bulmaro Rodriguez MD> Date Bulmaro Rodriguez MD Cosigner Signature (If Indicated): Date CC: Michelle Reaves MD Date Dictated: 11/17/15 1240 Date Transcribed: 11/17/15 124 Sand Analyst: Signed 22-Nov-2015 Small Bowel Series Only Result: Comments: See Note; NOTES: [facility] Imaging Services [address] [place] [address] Verdana 4d Small Bowel Series Only MR#: [id number] Acct: [id number] Name: HER SANDRA MCKEON Rep #: [id number] : 1980 F 35 From: Leigha Colon MD PCP: Michelle Reaves MD Status: REG CLI Study: Small Bowel Series Only Date of Exam: 11/22/15 Exam# [id number] Ordering Dr: Michelle Medina MD STUDY: AIR-CONTRAST [...] spot views were obtained COMPARISON: None. 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 Electronically Signed: Leigha Colon MD at 16:48 E DT Tel , Service support [phone], CC: Michelle Reaves MD Sand Analyst: Signed 17-Nov-2015 Discharge Instruction Result: Comments: See Note; NOTES: [facility] Medical Records Department [address] [place] [address] Discharge Instruction 11/17/15 1236 MR#: [id number] Acct: [id number] Name: SANDRA RATLIFF Rep #: [id number] : 1980 35 From: Bulmaro Rodriguez MD PCP: Michelle Reaves MD Status: REG ER ED Disposition - Plan for ED Patient: Disposition: Home or Assisted Living Chief Complaint: Abd Pain Instructions: ED Abdominal Pain, Unknown Cause, (Female), ED Vomiting And Diarrhea, Nonspecific (Adult) Prescriptions: Hydrocodone Bitart/Apap 5-325 [Sweetwater 5/325] 1 - 2 t ablet PO [...] problems, contact your doctor. Call [facility] ([phone]) or report to the closest [facility] Room. Call 911 if necessary. 11/17/15 1238 <Electronically signed by Bulmaro Rodriguez MD> Date Bulmaro [place] (If Indicated): Date CC: Michelle Reaves MD 17-Nov-2015 Abdomen/Pelvis WITH Contrast Result: Comments: See Note; NOTES: [facility] Imaging Services [address] [place] [address] Verdana 4d Abdomen/Pelvis WITH Contrast MR#: [id number] Acct: [id number] Name : SANDRA RATLIFF Rep #: [id number] : 1980 F 35 From: Isaac Espinoza MD PCP: Michelle Reaves MD Status: [facility] ER Study: Abdomen/Pelvis WITH Contrast Date of Exam: 11/17/15 Exam# [id number] O rdering Dr: Bulmaro Rodriguez MD STUDY: CT ABDOMEN AND PELVIS WITH CONTRAST REASON FOR EXAM: Female, 35 years old. Mid lower abdominal pain. Diarrhea and nausea. RADIATION DOSAGE (If Supplied By [facility]): CTDIvol = ( 18.40 ) mGy, DLP = ( 1366.61 ) mGycm TECHNIQUE: Transaxial images were obtained from the dome of the diaphragm to the symphysis pubis with oral contrast. 100ML ml of Isovue 300 c ontrast was administered. Sagittal and coronal images were reconstructed. Individualized dose optimization techniques were used for this CT. COMPARISON: Comparison is made with prior study dated [facility] 2015. FINDINGS: The visualized lung [...] Isaac Espinoza MD at 12:27 EDT Tel [phone], Service support [phone], CC: Michelle Reaves MD; Bulmaro Rodriguez MD Sand Analyst: Signed 13-Nov-2015 Operative Report Result: Comments: See Note; NOTES: [facility] Medical Records Department [address] [place] [address] Operative Report MR#: [id number] Acct: [id number] Name: LANNYNITIN Rep #: [id number] : 1980 35 From: Vi Sanchez MD [...] complications. Vi Sanchez MD T: NTS JOB: [id number] 11/13/15939 <Electronically sig shawn by Vi Sanchez MD> Date Vi Sanchez MD Cosigner Signature (If Indicated): Date C C: Michelle Reaves MD; Vi Sanchez MD Date Dictated: 11/07/15910 Date Transcribed: 11/07/15910 Sand Analyst: Signed 31-Aug-2015 Abdomen Single View Result: Comments: See Note; NOTES: [facility] Imaging Services [address] [place] [address] Verda 4d Abdomen Single View MR#: [id number] Acct: [id number] Name: SANDRA RATLIFF Rep #: [id number] : 1980 F 35 From: Isaac Espinoza MD PCP: Michelle Reaves MD Status: REG CLI Study: Abdomen Single View Date of Exam: 08/31/15 Exam# [id number] Ordering Dr: Kirsten Arias STUDY: X-RAY - [...] Isaac Espinoza MD at 13:18 EST Tel [phone], Service support [phone], RAD/Abdomen Single View IMPRESSION: Normal x-ra y examination of the abdomen and pelvis. Electronically Signed: Isaac Espinoza MD at 13:18 EST Tel [phone], Service support [phone], CC: Kirsten Arias ; Michelle Reaves MD Sand Analyst: Signed 29-Jul-2015 Transvaginal Non- Result: Comments: See Note; NOTES: [facility] Imaging Services [address] [place] [address] Verdana 4d Transvaginal Non- MR#: [id number] Acct: [id number] Name: SANDRA ZAVALA Rep #: [id number] : 1980 F 35 From: Isaac Espinoza MD PCP: Michelle Reaves MD Status: REG CLI Study: Transvaginal Non- Date of Exam: 07/29/15 Exam# [id number] Orderi ng Dr: Michelle Reaves MD STUDY: [...] Isaac Espinoza MD at 14:01 EST Tel [phone], Service support [phone], CC: Michelle Reaves MD Sand Analyst: Signed 29-Jul-2015 Pelvic (Non ) Result: Comments: See Note; NOTES: [facility] Imaging Services [address] [place] [address] Verdana 4d Pelvic (Non ) MR#: [id number] Acct: [id number] Name: SANDRA BELLE Rep #: [id number] : 1980 F 35 From: Isaac Espinoza MD PCP: Michelle Reaves MD Status: REG CLI Study: Pelvic (Non ) Date of Exam: 07/29/15 Exam# [id number] Ordering Dr: Michelle Ponce MD STUDY: ULTRASOUND [...] Isaac Espinoza MD at 14:01 EST Tel [phone], Service support [phone], CC: Michelle Reaves MD Sand Analyst: Signed 25-Jul-2015 Abdomen/Pelvis WITH Contrast Result: Comments: See Note; NOTES: [facility] Imaging Services [address] [place] [address] Verdana 4d Abdomen/Pelvis WITH Contrast MR#: [id number] Acct: [id number] Name : SANDRA RATLIFF Rep #: [id number] : 1980 F 35 From: Isaac Espinoza MD PCP: Michelle Reaves MD Status: REG CLI Study: Abdomen/Pelvis WITH Contrast Date of Exam: 07/25/15 Exam# [id number] Ordering Dr: Michelle Reaves MD STUDY: CT [...] Isaac Espinoza MD at 9:19 EST Tel [phone], Service support [phone], CC: Michelle Reaves MD Sand Analyst: Signed 07-Jul-2015 Abdomen Limited Result: Comments: See Note; NOTES: [facility] Imaging Services [address] [place] [address] Wichodana 4d Abdomen Limited MR#: [id number] Acct: [id number] Name: JEANNIE RATLIFF Rep #: [id number] : 1980 F 35 From: Leigha Colon MD PCP: Michelle Reaves MD Status: REG CLI Study: Abdomen Limited Date of Exam: 07/07/15 Exam# [id number] Ordering Dr: Michelle Reaves MD STUDY: ABDOMINAL [...] at 16:22 EST Tel , Service support [phone], CC: Michelle Reaves MD Sand Analyst: Signed 22-Apr-2015 OT Discharge Summary Result: Comments: See Note; NOTES: [facility] Occupational Therapy [facility] [address] [place] [address] Fax REHABILITATIO N SERVICES DISCHARGE SUMMARY MR#: [id number] Acct: [id number] Name: SADNRA RATLIFF Rep #: [id number] : 1980 34 From: Bernarda De La [...] However, she did make some improvements. 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 She was reporting independence with act ivities of daily living at this time. The patient was last seen on January 11, 2015, no further appointments were indicated. At this time, the patient is discharged. Bernarda De La Vega, OTR/L T: NTS JOB: [id number] <Electronically signed by Bernarda De La Vega > 04/22/15 1057 CC: Signed 10-Feb-2015 Operative Report Result: Comments: See Note; NOTES: [facility] Medical Records Department [address] [place] [address] Operative Report 02/02/15 1305 MR#: [id number] Acct: [id number] Name: LOUIS SANDRA LAMAS Rep #: [id number] : 1980 34 From: Vi Sanchez MD PCP: Michelle Reaves MD Status: DEP [facility] Y Location: [facility] Report of Operation Date of Procedure: 02/02/15 Pre-Operative Diagno sis: cholelithiasis, cholecystitis Post-Operative Diagnosis: same Surgery/Procedure Performed:: laparoscopic cholecystectomy with cholangiogram 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: NOT,DEFINED Type of Anesthesia:: General Anesthesiologist: Aide [...] Lead Electrocardiogram Result: Comments: See Note; NOTES: [facility] Cardiovascular Services [address] [place], [place] [address] [address] 12 Lead EKG 02/02/15 1129 MR#: [id number] Acct: [id number] Name: ELISABETH RATLIFF Rep #: [id number] : 1980 34 From: Stephane Boyle MD Attending Dr: Vi Sanchez MD Status: [facility] Ordering Dr: Buzz Collins MD Date: 02/02/15 Location: [facility] Sex: F C Admitted: Test [place] son : PRE OP Blood Pressure : / mmHG Vent. Rate : 074 BPM Atrial Rate : 074 BPM P-R Int : 134 ms QRS Dur : 110 ms QT Int : 378 ms P-R-T Axes : 051 071 046 degrees QTc Int : 419 ms Normal sinus rhythm Normal ECG No previous ECGs available Confirmed by STEPHANE BOYLE MD ([id number]), index editor JASMIN RAMOS ([id number]) on 02/04/2015 10:20:06 AM Referred By: LALO Confirmed By:STEPHANE BOYLE MD 1020 Date Stephane Boyle MD CC: Michelle Reaves MD Date Dictated: 02/02/15 1129 Date Transcribed: 02/02/15 112 Sand Analyst: Signed 04-Feb-2015 Emergency Department Summary Result: Comments: See Note; NOTES: [facility] Medical Records Department [address] [place] [address] Emergency Department Summary MR#: [id number] Acct: [id number] Name: SANDRA BELLE Rep #: [id number] : 1980 34 From: Naldo Schaeffer MD PCP: Michelle Reaves MD Status: [facility] ER DATE OF SERVICE: 02/01/2015 CHIEF [...] C: Michelle Reaves MD T: NTS JOB: [id number] 02/04/15 0552 <Electronically signed by Naldo Schaeffer MD> Date Naldo quintanilla MD CC: Michelle Reaves MD Date Dictated: 02/01/15536 Date Transcribed: 02/01/15536 Sand Analyst: Signed 02-Feb-2015 Discharge Instruction Result: Comments: See Note; NOTES: [facility] Medical Records Department [address] [place] [address] Instructions for Home/Discharge Instructions 02/02/15 1305 MR#: [id number] ct: [id number] Name: SANDRA RATLIFF Rep #: [id number] : 1980 34 From: Vi Sanchez MD PCP: Michelle Reaves MD Status: REG [facility] Discharge Diet: No Restrictions - drink plenty [...] for date and time, thank you 02/02/15 6924 <Electronically deangelo d by Vi Sanchez MD> Date Vi Sanchez MD CC: Michelle Reaves MD 02-Feb-2015 History and Physical Exam Result: Comments: See Note; NOTES: [facility] Medical Records Department [address] [place] [address] History and Physical 02/02/15 1155 MR#: [id number] Acct: [id number] Name: SANDRA RATLIFF Rep #: [id number] : 1980 34 From: Vi Sanchez MD PCP: Michelle Reaves MD Status: REG [facility] Y Location: [place] [address] History and Physical - Blank Date of Admission: 02/02/15 P [facility] Provider: Dr. Reaves History of [...] Morbid obesity, class III Past Surgical History: [place] teeth extraction C section 2010 Past injuries: [...] 77 / minute Resp: 18 per min cher-ae heights BP sittin / 83 General: well developed, [...] 01-Feb-2015 Gallbladder Result: Comments: See Note; NOTES: [facility] Imaging Services [address] [place] [address] Ultrasound Report MR#: [id number] Acct: [id number] Name: SANDRA RATLIFF Rep #: : 1980 F 34 From: Deonte Woods DO PCP: Michelle Reaves MD Status: REG CLI Study: Gallbladder Date of Exam: 02/01/15 Exam# [id number] Ordering Dr: Michelle Reaves MD STUDY: ABDOMINAL [...] distended gallbladder with edematous wall with positive Litltejohn's sign. The findings suggest acute cholecystitis. N.B. : The above information has been verb ally conveyed by Deonte Woods DO to Michelle Reaves MD, Referring Physician, on 02/01/2015 17:24:35 (ET). Electronically Signed: Deonte Woods DO at 17:18 EDT Tel [phone], Service suppor t [phone], N.B. : The above information has been verbally conveyed by Deonte Woods DO to Michelle Reaves MD, Referring Physician, on 02/01/2015 17:24:35 (ET). CC: Michelle Reaves MD Sand Analyst: Signed 01-Feb-2015 Discharge Instruction Result: Comments: See Note; NOTES: [facility] Medical Records Department [address] [place] [address] Discharge Instruction 02/01/15 0534 MR#: [id number] Acct: [id number] Name: SANDRA RATLIFF Rep #: [id number] : 1980 34 From: Naldo Schaeffer MD [...] unex pected problems, contact your doctor. Call [employer] [facility] ([phone]) or report to the closest Emergency Room. Call 911 if necessary. 02/01/15 0535 <Electronically signed by Abdullahi Schaeffer MD> Date Naldo Schaeffer MD Cosigner Signature (If Indicated): Date CC: Michelle Reaves MD 18-Nov-2014 Initial Evaluation - OT Result: Comments: See Note; NOTES: [facility] Occupational Therapy Health[address] [place] [address] Fax REHABILITATION SERV ICES INITIAL EVALUATION MR#: [id number] Acct: [id number] Name: SANDRA RATLIFF Rep #: [id number] : 1980 34 From: Bernarda De La Vega Referring DrMagdy: Ofe Jay DO Status: REG RCR Insu elly: [facility] Date: DATE OF SERVICE: PHYSICIAN: Ofe Jay [...] Right ulnar deviation 10, left 30. Right dowel pin worker strength is 35 pounds, left is [...] The patient will demonstrate increase in right dowel pin worker strength to 65 pounds or greater [...] De La Vega, OTR/L T: EMILY JOB: [id number] <Electronically signed by Bernarda De La Vega & #62; 11/18/14 0927 CC: Signed For Medicare only, by signing this I certify the plan of care. Physicians Signature Date 04-Nov-2014 Wrist min 3 Views Result: Comments: See Note; NOTES: [facility] Imaging Services [address] [place] [address] Radiology Report MR#: [id number] Acct: [id number] Name: SANDRA RATLIFF Rep #: [id number] : 1980 F 34 From: Catrachito Wren MD PCP: Michelle Reaves MD Status: REG CLI Study: Wrist min 3 Views Date of Exam: 11/04/14 Exam# [id number] Ordering Dr: Ofe Jay DO STUDY: X-RA [...] MD at 14:57 EDT , Service support [phone], RAD/Wrist min 3 Views IMPRESSION: Normal x-ray examination of the wrist. Electronically Signed: Catrachito Wren MD at 14:57 EDT , Service support [phone], Fax CC: Ofe Jay DO; Michelle Reaves MD Sand Analyst: Signed Immunization Name Dates Details Tdap (7 years and up) on: 30-Jun-2017 Comments: [facility] Family History Unknown Family Member Name Dates Details Brother 1 Comments: healthy Status: Active Father Comments: hx. [place] (age 50) CABGx3, heart disease Status: Active [...] use. 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 Aries [phone] Status: Active Exercise History: Exercises occasionally. Comments: [...] kg/m2 Body Surface Area Calculated 2.55 m2 01-Fev-70902:17 Temperature 97.9 f Comments: Method: Temporal Pulse [...] in this mix are: Blue mussel Fish [place] Shrimp Tuna EGG, WHOLE <0.10 kU/L (Normal) CHOCOLATE <0.10 kU/L (Normal) Comments: Performed at: [address] [id number] Director: Davide Jordan MD, Phone: [phone] BEEF <0.10 kU/L (Normal) PORK <0.10 kU/L (Normal) SOYBEAN <0.10 kU/L (Normal) PEANUT <0.10 kU/L (Normal) CORN <0.10 kU/L (Normal) WHEAT <0.10 kU/L (Normal) MILK (COW) <0.10 kU/L (Normal) :43 CBC-Complete Blood Cnt No Diff Comments: [facility] [address] [facility] [address] [place], [place], [address] ; fu 10-5 DB MPV 10.0 fL [...] Range: 4.4-11.0 :43 Comprehensive Metabolic Profil Comments: [facility] [address] [facility] [address] [place], [place], [address] GAP 10 (Normal) Range: 5-15 CO2 27.0 [...] Comments: Please note revised GLUCOSE reference range rubtcsxrg99/02/2018. :43 T4 Free Direct Comments: [facility] [address] [facility] [address] [place], [place], [address] T4 FREE DIRECT 1.04 ng/dL (Normal) Range: 0.76-1.46 :43 Thyroid Stim Hormone (TSH) Comments: [facility] [address] [place], [place], [address] TSH 2.11 {uIU/mL} (Normal) Range: 0.358-3.74 :43 Vitamin D,25 Hydroxy Comments: [facility] [address] [place], [address] Vitamin D 25-OH 30.2 ng/mL (Normal) Range: 29.95-100.01 Comments: Vitamin D 25(OH) Status Range Deficiency <20 ng/mL (50nmol/L) Insuffciency 20 - 30 ng/mL (50 - 75 nmol/L) Sufficiency 30 - 100 ng/mL (75 - 250 nmol/L) Toxicity >100 ng/mL (>250 nmol/L) 6-Pcs-864412:16 NuSwab Vaginitis Plus Comments: PATIENT NOT FASTINGPERFORMED BY: [facility] [id number] Information: SRC:CE (trich/BV/GC/linda W/O Herpes) (06508) Neisseria gonorrhoeae, Negative (Normal) ROBERT Chlamydia trachomatis, Negative (Normal) ROBERT Trich vag by ROBERT Negative (Normal) Mercedes glabrata, ROBERT Negative (Normal) Comments: This test was developed and its performance characteristics determinedby [employer]. It has not been cleared or approved [...] was developed and its performance characteristicsdetermined by [employer]. It has not been cleared or approvedby the Food and Drug Administration. The FDA has determinedthat such clearance or approval is not necessary. BVAB 2 Low - 0 {Score} (Normal) Atopobium vaginae Low - 0 {Score} (Normal) 4-Bxv-798531:16 HPV automatic Comments: Source.............Cervix;EndocervixNo. of containers..01 ThinPrep VialPATIENT NOT FASTINGPERFORMED BY: WB [facility] [id number] BY: =G [facility]CoPaint[facility] ([address]) grhvib463 [facility] [id number] Information: [id number] HPV, high-risk Negative Comments: This high-risk HPV [...] metaplasticcells (endocervical com ponent) are present.Z01.419Nathaly Reese Cloth Covered Helmet Puller (ASCP) 09-May-20178:25 URINE AUTUMN CULTURE-IDENTIFICATN Comments: PATIENT NOT FASTINGPERFORMED BY: CB [facility] [address] [facility] [place] [id number] ([address]) Antimicrobial MIHEAD (Normal) Comments: S = Susceptible; [...] Urine Final report Culture,Comprehensive (Abnormal) 09-May-20178:25 URINALYSIS (37681) Comments: PATIENT NOT FASTINGPERFORMED BY: CB [facility] Qcsdfy6616 [employer] StrengthFormerly [facility], [facility] [id number] Information: SRC:UC Microscopic Examination MICNIP (Normal) Comments: Microscopic not indicated and not performed. Nitrite, Urine Negative (Normal) Urobilinogen,Semi-Qn 0.2 mg/dL (Normal) Range: 0.2-1.0 Bilirubin Negative (Normal) Occult Blood Negative (Normal) Ketones Negative (Normal) Glucose Negative (Normal) Protein Negative (Normal) WBC Esterase Negative (Normal) Appearance Clear (Normal) Urine-Color Yellow (Normal) pH 5.5 (Normal) Range: 5.0-7.5 Specific [place] 1.022 (Normal) Range: 1.005-1.030 :35 CBC, Platelets & Auto Diff Comments: PATIENT NOT FASTINGPERFORMED BY: LabCoSaint James HospitalYcimle1769 [facility] [id number] Information: NURSE DRAW (45656) Immature Grans (Abs) 0.0 {x10E3/uL} (Normal) Range: [...] Panel, Comprehensive Comments: PATIENT NOT FASTINGPERFORMED BY: [facility] Cmyggz4970 TravelSite.comNov[facility] [id number] (46523) ALT (SGPT) 18 [iU]/L (Normal) Range: 0-32 [...] (Abnormal) Range: 65-99 :35 T3, FREE (TRIDOTHYRONINE) (77763) Comments: PATIENT NOT FASTINGPERFORMED BY: [facility] Mcieiq0847 AmosS² DevelopmentNovant [facility] Medical Park Hospital [id number] Triiodothyronine,Free,Serum 3.7 pg/mL (Normal) Range: 2.0-4.4 :35 T4, FREE (THYROXINE) (10535) Comments: PATIENT NOT FASTINGPERFORMED BY: [facility] CareSaint James HospitalWmskda0711 [facility] [id number] T4,Free(Direct) 1.07 ng/dL (Normal) Range: 0.82-1.77 55-Bwe-186804:15 HgA1C , Office (91880) HgA1C , Office 5.5 % (Normal) Range: 4.6 - 7.1 54-Lbu-594010:33 METABOLIC PANEL, Comments: PATIENT WAS FASTINGPERFORMED BY: LabPatty [place] 218457 [facility] [id number] BY: LabNova LignumSaint James HospitalIykhrb1118 [facility] [id number] COMPREHENSIVE (90532) ALT (SGPT) 21 [iU]/L (Normal) Range: 0-32 [...] Glucose, Serum 88 mg/dL (Normal) Range: 65-99 66-Gyj-672398:33 LIPOPROTEIN, BLD, BY NMR Comments: PATIENT WAS FASTINGPERFORMED BY: BN [facility] Lojjlapepw8547 [facility] [id number] BY: CB [facility] Qcdnug9927 [facility] [id number]; fu 8-1 db (39714) LP-IR Score 72 (Abnormal) Comments: INSULIN RESISTANCE MARKER <--Insulin Sensitive Insulin Resistant--> Percentile in Reference PopulationInsulin Resistance ScoreLP-IR Score Low 25th 50th 75th High <27 27 45 63 >63LP-IR Score is inaccurate if patient is non-fasting. .The LP-IR score is a laboratory developed i [facility] that has beenassociated with insulin [...] were developed and their performance characteristicsdetermined by [employer]. These assays have not been cleared by [...] 1600 - 2000 Very High > 2000 51-Tov-995449:33 CBC with auto diff Comments: PATIENT WAS FASTINGPERFORMED BY: BN [facility] [address] [id number] BY: CB [facility] Fmxnay4194 [facility] [id number] (35170) Immature Grans (Abs) 0.0 {x10E3/uL} (Normal) Range: [...] 3.77-5.28 WBC 9.2 {x10E3/uL} (Normal) Range: 3.4-10.8 74-Uhp-556676:33 CALCIFIDIOL (00124) VIT D Comments: PATIENT WAS FASTINGPERFORMED BY: [employer] [address] [id number] BY: [employer] Olzekp3512 Amos [facility] [id number] Vitamin D, 25-Hydroxy 51.8 ng/mL (Normal) Range: 30.0-100.0 Comments: Vitamin D deficiency has been defined by the [place] ofMedicine and an Endocrine Society practice guideline as alevel of serum 25-OH vitamin D less than 20 ng/mL (1,2).The Endocrine Society went on to further define vitamin Dinsufficiency as a level between 21 and 29 ng/mL (2).1. IOM ([place] of Medicine). 2010. Dietary reference intakes for calcium and D. [place]: The National Academies Press.2. Clari MF, Jose LEES, Ash NETTLES, et al. Evaluation, treatment, and prevention of vitamin D deficiency: an Endocrine Society clinical practice guideline. JCEM. 2010; 96(7):1911-30. :38 AUTUMN CULTURE-OTHER (73415) Comments: PATIENT NOT FASTINGPERFORMED BY: [facility] CareSaint James HospitalRrxqqg25[address] [place] [address] [id number] Information: SRC: Result 1 RRF (Normal) Comments: Routine respiratory juan Upper Respiratory Culture Final report (Normal) 56-Pku-38223:32 AUTUMN CULTURE-OTHER (62197) Comments: PATIENT NOT FASTINGPERFORMED BY: [facility] Mjrsvu3175 Bette Villalobos [place] [id number] Information: SRC:TH Result 1 RRF (Normal) Comments: Routine respiratory juan Upper Respiratory Culture Final report (Normal) 30-Kvm-467123:35 Rapid Strep Test, Office (50729) Rapid Strep Test, Office Negative (Normal) 62-Wim-145348:39 CBC W/Diff, Automated Comments: [facility] Eveloqzgda23[address] [place], [address] Absolute Lymph 3.19 {X10_3/ul} (Normal) Range: 0.83-4.51 [...] Range: 4.4-11.0 :39 Prothrombin Time w/INR Comments: [facility] Volpncslqh3420 [address] [place], [place], [id number] INR 1.0 (Normal) PROTIME 12.9 s (Normal) Range: 11.7-14.9 :58 CBC, Platelets & Auto Comments: PATIENT NOT FASTINGPERFORMED BY: [facility] Iqrbyk5848 [address] [facility] [id number] Information: [id number] Diff (99995) Immature Grans (Abs) 0.0 {x10E3/uL} (Normal) Range: [...] (Normal) Range: 3.4-10.8 :58 T3, FREE (TRIDOTHYRONINE) (96359) Comments: PATIENT NOT FASTINGPERFORMED BY: [facility]6[address] [id number] Triiodothyronine,Free,Serum 3.2 pg/mL (Normal) Range: 2.0-4.4 :58 T4, FREE (THYROXINE) (23157) Comments: PATIENT NOT FASTINGPERFORMED BY: [address] [id number] T4,Free(Direct) 1.07 ng/dL (Normal) Range: 0.82-1.77 :58 TSH (42982) Comments: PATIENT NOT FASTINGPERFORMED BY: [facility] [id number] TSH 2.830 {uIU/mL} (Normal) Range: 0.450-4.500 :58 HELICOBACTER PYLORI ANTIBODY Comments: PATIENT NOT FASTINGPERFORMED BY: [facility] [id number] (17653) H. pylori, IgG Abs <0.9 U/mL (Normal) Range: 0.0-0.8 Comments: Negative <0.9 Indeterminate 0.9 - 1.0 Positive >1.0 :46 Testosterone, Free+Total Comments: PATIENT NOT FASTINGPERFORMED BY: [facility]1447 [facility] [id number] BY: [facility] [id number] Information: 667324,[id number] LC/MS Free Testosterone(Direct) 1.5 pg/mL Range: 0.0-4.2 (Normal) Testosterone, Total, LC/MS 11.8 ng/dL Range: 10.0-55.0 (Normal) Comments: This test was developed and its performance characteristicsdetermined by [facility]. It has not been cleared or approvedby the Food and Drug Administration. Written Authorization WAR (Normal) Comments: PATIENT NOT FASTINGPERFORMED BY: [facility]1447 [facility] [id number] BY: [facility] [id number] 610:46 Comments: Written Authorization Received.Authorization received from PHILLIP LEIGH LPN 14-51-1958Klreob by Chichi Flores 9-Ouv-313069:46 CALCIFIDIOL (19626) VIT D 25 Comments: PATIENT NOT FASTINGPERFORMED BY: [facility] [id number] Vitamin D, 25-Hydroxy 41.9 ng/mL (Normal) Range: 30.0-100.0 Comments: Vitamin D deficiency has been defined by the [place] ofMedicine and an Endocrine Society practice guideline as alevel of serum 25-OH vitamin D less than 20 ng/mL (1,2).The Endocrine Society went on to further define vitamin Dinsufficiency as a level between 21 and 29 ng/mL (2).1. IOM ([place] of Medicine). 2010. Dietary reference intakes for calcium and D. [place]: The National Academies Press.2. Clari MF, Jose NC, Ash NETTLES, et al. Evaluation, treatment, and prevention of vitamin D deficiency: an Endocrine Society clinical practice guideline. JCEM. 2010; 96(7):1911-30. 5-Bxg-930258:46 Metabolic Panel, Comments: PATIENT NOT FASTINGPERFORMED BY: [facility] [id number] Information: [id number] Comprehensive (48792) ALT (SGPT) 21 [iU]/L (Normal) Range: 0-32 [...] Glucose, Serum 81 mg/dL (Normal) Range: 65-99 28-Zmy-030278:16 Cortisol,Urinary Free 24- Comments: PATIENT NOT FASTINGPERFORMED BY: Lab[address] [id number] Information: [id number] VOLUME 1800; fu 8-18 Hour Urine (96248) Cortisol,F,ug/24hr,U 18 {ug/24_hr} (Normal) Range: 0-50 Comments: This test was developed and its performance characteristicsdetermined by [employer]. It has not been cleared or approvedby the Food and Drug Administration. Cortisol,F,ug/L,U 10 ug/L (Normal) 8-Pzx-955931:46 HGB A1C (86738) Comments: PATIENT NOT FASTINGPERFORMED BY: [facility]Holland Hospital6370 [facility] [id number] Hemoglobin A1c 5.5 % (Normal) Range: 4.8-5.6 Comments: . Pre-diabetes: 5.7 - 6.4 Diabetes: >6.4 Glycemic control for adults with diabetes: <7.0 31-Idi-635681:13 SEROTONIN (33701) Comments: PATIENT NOT FASTINGPERFORMED BY: [address] [id number] Information: [id number] Serotonin, Serum 10 ng/mL (Normal) Range: 0-420 :42 TSH (THYROID STIMULATING Comments: PATIENT NOT FASTINGPERFORMED BY: [facility] [id number] HORMONE) (72123) TSH 1.560 {uIU/mL} (Normal) Range: 0.450-4.500 :42 CBC, PLATELETS & MANUAL Comments: PATIENT NOT FASTINGPERFORMED BY: [facility] [id number] Information: [id number] DIFF (13420) Immature Grans (Abs) 0.0 {x10E3/uL} (Normal) Range: [...] 3.77-5.28 WBC 8.2 {x10E3/uL} (Normal) Range: 3.4-10.8 49-Ssq-08387:42 ESR-F (SED RATE ERYTHROCYTE - Comments: PATIENT NOT FASTINGPERFORMED BY: [facility] [id number] FEMALE) (36555) Sedimentation Rate-Westergren 25 mm/h (Normal) Range: 0-32 43-Hfq-81638:42 PREALBUMIN (39872) Comments: PATIENT NOT FASTINGPERFORMED BY: [facility] [id number] Prealbumin 28 mg/dL (Normal) Range: 9-31 Comments: [...] - 36 >70 years 9 - 32 01-Dgh-416503:45 Urinalysis, Complete Comments: Order Date: 11/17/15How was Urine Obtained? MANAGER EDUCATION TO [facility] Sfrzfkrurb[address] [place], [place], [phone] MUCUS, URINE 0 SEEN {/hpf} (Normal) BACTERIA [...] CLARITY Sl. Cloudy (Normal) COLOR Yellow (Normal) 03-Pou-71262:08 CBC W/Diff, Automated Comments: [facility] Bohbzzabqr0188 [address]. [place], [place], [address] Absolute Lymph 1.81 {X10_3/ul} (Normal) Range: 0.83-4.51 [...] Range: 4.4-11.0 :08 Comprehensive Metabolic Profil Comments: [facility] Gkkyakqibr6[address] [place], [place], [address] GAP 6 (Normal) Range: 5-15 CO2 27.0 [...] Range: 70-110 :08 Lipase Comments: [facility] [address] [place], [place], [address] LIPASE 160 U/L (Normal) Range: 73-393 :08 ,Serum,hCG Quali. Comments: [facility] [address] [place], [place], [phone] HCGSQUAL NEGATIVE {Negative} Range: 0-9 Nonpreg (Normal) HCG Qual triggr < 1 m[iU]/mL (Normal) 09-Nov-20150:00 LIPOMA (SOFT TISSUE) See Note (Normal) Comments: [facility] [address] [place], [place], [address] Comments: Patient: SANDRA RATLIFF : 1980 (35/F) Acct Num: [id number] Phys: Yohan HARGROVE,Vi Unit Num: [id number] Loc: LABSPEC Specimen: [id number] Received: 11/09/151842 Spec Type: LIPOMA TISSUES TISSUES: GROSS DESCRIPTION Received is one container labeled with the patient name and designated abdominal lesion. The specimen consists of multiple irregular fragm ents of yellow fatty tissue that in aggregate measure 4 x 3 x 1 cm. Bioinformatics Associate portions are submitted in one cassette. / AM:shubham 11/10/15 TC:1 CPT:97714 HEADER OPERATION: Excision upper left a bdominal wall lesion PRE-OP DIAGNOSIS: Upper left abdominal wall lesion TISSUE SUBMITTED: Lipoma of abdominal wall MICROSCOPIC DESCRIPTION Slides are reviewed. MICROSCOPIC DIAGNOSIS Lipo ma of abdominal wall, excision: Mature adipose tissue, consistent with lipoma. SJ:shubham 11/11/15 Signed Yimi Zapata 11/11/15 <signature on file> :50 Culture, Blood (WB) Comments: [facility] Amcnkxldgx9334 [facility] [place], [place], [phone] CUB See Note (Normal) Comments: BCNo growth in 5 days. 0-Mhk-290271:50 Culture, Blood (WB) Comments: [facility] [address]wjhn[address] [facility] [address] [place], [place], [address] CUB See Note (Normal) Comments: BCNo growth in 5 days. 03-Oqg-18154:08 Urinalysis, Office (14026) UA - LEUKOCYTE ESTERASE Negative (Normal) UA - NITRITE Negative (Normal) URINE UROBILINGN DWAYNE TIMED Normal mg/dL (Normal) UA - PROTEIN 30 mg/dL (Normal) UA - PH 6 (Abnormal) UA - BLOOD Negative (Normal) UA - SPECIFIC GRAVITY 1.020 (Normal) UA - KETONES 15 ug/dL (Abnormal) UA - BILIRUBIN Moderate (Normal) UA - GLUCOSE Negative (Normal) 66-Kgt-536571:10 Microscopic Examination Comments: PATIENT NOT FASTINGPERFORMED BY: LabCoSaint James HospitalPgfypx3742 [facility] [id number] Bacteria Few (Normal) Mucus Threads Present (Normal) Cast Type Hyaline casts (Normal) Casts Present {/lpf} (Abnormal) Epithelial Cells (non renal) 0-10 {/hpf} (Normal) Range: 0 - 10 RBC 0-2 {/hpf} (Normal) Range: 0 - 2 WBC 6-10 {/hpf} (Abnormal) Range: 0 - 5 27-Wna-656856:51 ANCA Panel Comments: PATIENT NOT FASTINGPERFORMED BY: [employer] [address] [id number] BY: [facility] Ypqsgq1966 [facility] [id number] Information: [id number] Atypical pANCA <1:20 {titer} Comments: The atypical [...] follow up testing ofpositive sera with both NY-3 and MPO-ANCA enzyme immunoassays. Asmany as 5% serum samp les are positive only by EIA.Ref. AM J Clin Pathol 1999;111:507-513. Cytoplasmic (C-ANCA) <1:20 {titer} (Normal) Antiproteinase 3 (NY-3) Abs <3.5 U/mL Range: 0.0-3.5 (Normal) Antimyeloperoxidase (MPO) <9.0 U/mL Range: 0.0-9.0 Abs (Normal) Written Authorization WAR (Normal) Comments: PATIENT NOT FASTINGPERFORMED BY: [facility] [id number] BY: [facility] CareSaint James HospitalPdxtjt8996 [facility] [id number] 612:51 Comments: Written Authorization Received.Authorization received from ERIKA RUANO LPN 74-26-2978Xlbxud by Shalini Ramos 87-Ixb-488293:51 CBC WITH MANUAL DIFF Comments: PATIENT NOT FASTINGPERFORMED BY: [facility] [id number] Information: [id number] (80242) Immature Grans (Abs) 0.0 {x10E3/uL} (Normal) Range: [...] 3.77-5.28 WBC 7.8 {x10E3/uL} (Normal) Range: 3.4-10.8 55-Uur-761610:10 URINE AUTUMN CULTURE-IDENTIFICATN Comments: PATIENT NOT FASTINGPERFORMED BY: [facility]Hol[facility] Hospital6370 [facility] [id number] (06814) Result 1 NG36 (Normal) Comments: No growth in 36 - 48 hours. Urine Culture,Comprehensive Final report (Normal) 59-Iyn-102021:51 COMPLEMENT C4 (68526) Comments: PATIENT NOT FASTINGPERFORMED BY: [place] 7542570 [facility] [id number] Complement C4, Serum 50 mg/dL (Abnormal) Range: 14-44 11-Irw-108367:51 COMPLEMENT C3 (65383) Comments: PATIENT NOT FASTINGPERFORMED BY: [address] [id number] Complement C3, Serum 204 mg/dL (Abnormal) Range: 82-167 04-Yul-600533:58 COMPLEMENT, TOTAL (CH50) Comments: PATIENT NOT FASTINGPERFORMED BY: [address] [id number] Information: [id number] (12278) Complement, Total (CH50) >60 U/mL (Abnormal) Range: 42-60 Comments: Please note reference interval change 68-Kln-871871:10 URINALYSIS (38556) Comments: PATIENT NOT FASTINGPERFORMED BY: [address] [id number] Information: [id number] Microscopic Examination See below: (Normal) Comments: Microscopic was indicated and was performed. Appearance Cloudy (Abnormal) Urine-Color [place] (Normal) Comments: Unable to read or assay due to color interference. Specific [place] 1.023 (Normal) Range: 1.005-1.030 87-Ckv-422767:51 HCG Qualitative, Serum (50670) Comments: PATIENT NOT FASTINGPERFORMED BY: [place] 7542570 [facility] [id number] hCG,Beta Subunit,Qual,Serum Negative m[iU]/mL (Normal) 49-Qiu-994415:51 serum free light chains Comments: PATIENT NOT FASTINGPERFORMED BY: [address] [id number] (84739) Velva/Lambda Ratio,S 1.97 (Abnormal) Range: 0.26-1.65 Free Lambda Lt Chains,S 16.13 mg/L (Normal) Range: 5.71-26.30 Free Velva Lt Chains,S 31.85 mg/L (Abnormal) Range: 3.30-19.40 :51 urine immunofixation (23683) Comments: PATIENT NOT FASTINGPERFORMED BY: [employer] [facility] [id number] IRWIN Interpretation:U UPEIP (Normal) Comments: No monoclonality detected. :51 serum immunofixation (29772) Comments: PATIENT NOT FASTINGPERFORMED BY: [employer] [facility] [id number] Immunoglobulin M, Qn, Serum 68 mg/dL (Normal) Range: 40-230 Immunoglobulin A, Qn, Serum 192 mg/dL (Normal) Range: 91-414 Immunoglobulin G, Qn, Serum 1229 mg/dL (Normal) Range: 700-1600 Immunofixation Result, Serum IFENOR (Normal) Comments: An apparent normal immunofixation pattern. :51 UPEP (69580) Comments: PATIENT NOT FASTINGPERFORMED BY: Audanika [facility] [id number] Please note: SPRCS (Normal) Comments: Protein electrophoresis scan will follow via computer, mail, orcourier delivery. M-Rene, % Not Observed % (Normal) Gamma Globulin, U 12.1 % (Normal) Beta Globulin, U 23.3 % (Normal) Xexiu-9-Rjsuhsaa, U 28.7 % (Normal) Gongh-5-Ikpzmsuj, U 4.1 % (Normal) Albumin, U 31.8 % (Normal) Protein,Total,Urine 42.0 mg/dL (Abnormal) Range: 0.0-15.0 :51 P-ANCA & C-ANCA (ANCA Comments: PATIENT NOT FASTINGPERFORMED BY: Buxfer70 [facility] [id number] PROFILE) 47179 x2 and 41244 x2 Mitochondrial (M2) Antibody <20.0 {Units} (Normal) Range: 0.0-20.0 Comments: Negative 0.0 - 20.0 Equivocal 20.1 - 24.9 Positive >24.9 . Mitochondrial (M2) Antibodies are found in 90-96% of patients with primary biliary cirrhosis. 51-Iza-779487:51 C-REACT PROT HIGH SENS(hsCRP) Comments: PATIENT NOT FASTINGPERFORMED BY: [facility]endHolland Hospital6[address] [facility] [id number] (39998) C-Reactive Protein, Cardiac 94.10 mg/L (Abnormal) Range: 0.00-3.00 Comments: Relative Risk for Future Cardiovascular Event Low <1.00 Average 1.00 - 3.00 High >3.00 08-Qcw-640155:32 DNA ANTIBODY-NATV/DBL ST (15639) Comments: PATIENT NOT FASTINGPERFORMED BY: [facility] [id number] test code 223657 Anti-DNA (DS) Ab Qn <1 {IU/mL} (Normal) Range: 0-9 Comments: Negative <5 Equivocal 5 - 9 Positive >9 81-Tox-311968:32 MICROALBUMIN: CREATININE Comments: PATIENT NOT FASTINGPERFORMED BY: [facility] [id number] Information: [id number] RATIO (87944) AND (65291) Microalb/Creat Ratio 28.7 {mg/g_creat} (Normal) Range: 0.0-30.0 Microalbumin, Urine 76.1 ug/mL (Abnormal) Range: 0.0-17.0 Creatinine, Urine 265.3 mg/dL (Normal) Range: 16.0-327.0 38-Cyl-782420:32 RPR (RAPID PLASMA REAGIN) Comments: PATIENT NOT FASTINGPERFORMED BY: [facility] [id number] (02381) RPR Non Reactive (Normal) 76-Rgh-780434:26 Systemic Lupus Profile A Comments: PATIENT NOT FASTINGPERFORMED BY: [facility] [id number] Information: 403321,[id number] Anti-DNA (DS) Ab Qn <1 {IU/mL} Range: 0-9 (Normal) Comments: Negative <5 Equivocal 5 - 9 Positive >9 Sjogren's Anti-SS-B 0.4 {AI} (Normal) Range: 0.0-0.9 Sjogren's Anti-SS-A <0.2 {AI} (Normal) Range: 0.0-0.9 Antichromatin Antibodies 0.3 {AI} (Normal) Range: 0.0-0.9 RA Latex Turbid. 13.0 {IU/mL} Range: 0.0-13.9 (Normal) Tariq Antibodies <0.2 {AI} (Normal) Range: 0.0-0.9 TOBACCO CUTTER Antibodies 2.7 {AI} Range: 0.0-0.9 (Abnormal) Written Authorization WAR (Normal) Comments: PATIENT NOT FASTINGPERFORMED BY: [facility] Gzqcxv1241 [facility] [id number] 0:26 Comments: Written Authorization Received.Authorization received from MICHELLE REAVES MD 06-32-1075Mfmopr by Devi Biswas 61-Wmj-240222:26 EB ANTIBODY VIRAL CAPSID Comments: PATIENT NOT FASTINGPERFORMED BY: [facility] CareSaint James HospitalHqodbh3492 [facility] [address] [id number] (67888) X2 Interpretation: SPRCS (Normal) Comments: EBV Interpretation [...] <36.0 Equivocal 36.0 - 43.9 Positive >43.9 68-Bsg-896139:26 CALCIFIDIOL (01771) VIT D 25 Comments: PATIENT NOT FASTINGPERFORMED BY: [facility] CareLovelace Medical CenterXnfjlu1294 [facility] [id number] Vitamin D, 25-Hydroxy 48.4 ng/mL (Normal) Range: 30.0-100.0 Comments: Vitamin D deficiency has been defined by the [place] ofGuern[facility] Memorial Hospitalcine and an Endocrine Society practice guideline as alevel of serum 25-OH vitamin D less than 20 ng/mL (1,2).The Endocrine Society went on to further define vitamin Dinsufficiency as a level between 21 and 29 ng/mL (2).1. IOM ([place] of Medicine). 2010. Dietary reference intakes for calcium and D. [place]: The National Academies Press.2. Clari MF, Jose NC, Ash NETTLES, et al. Evaluation, treatment, and prevention of vitamin D deficiency: an Endocrine Society clinical practice guideline. JCEM. 2010; 96(7):1911-30. 88-Nrn-682795:26 Folate (27468) Comments: PATIENT NOT FASTINGPERFORMED BY: SoMoLendResearch Psychiatric CenterOgefhr8551 [facility] [id number] Folate (Folic Acid), Serum 8.4 ng/mL (Normal) Comments: A serum folate concentration of less than 3.1 ng/mL isconsidered to represent clinical deficiency. 78-Ajf-970225:26 VITAMIN B-12 (CYANOCOBALAMIN) Comments: PATIENT NOT FASTINGPERFORMED BY: [facility] Kpmvdf4141 [address] [facility] [id number] (67771) Vitamin B12 280 pg/mL (Normal) Range: 211-946 46-Rcc-738555:26 TSH (53128) Comments: PATIENT NOT FASTINGPERFORMED BY: [facility] Eirzru8381 [facility] [id number] TSH 1.730 {uIU/mL} (Normal) Range: 0.450-4.500 87-Tfn-014318:26 SED RATE ERYTHROCYTE (36316) Comments: PATIENT NOT FASTINGPERFORMED BY: LabCoSaint James HospitalCnsioo1046 [facility] [id number] Sedimentation Rate-Westergren 48 mm/h (Abnormal) Range: 0-32 82-Jig-125433:26 RHEUMATOID FACTOR-QUANT (97714) Comments: PATIENT NOT FASTINGPERFORMED BY: [facility] Qaqahl6737 [address] [id number] RA Latex Turbid. 13.3 {IU/mL} (Normal) Range: 0.0-13.9 04-Wzt-014688:26 METABOLIC PANEL, Comments: PATIENT NOT FASTINGPERFORMED BY: LabCoSaint James HospitalHgermn4003 [facility] [id number] Information: [id number] COMPREHENSIVE (63351) ALT (SGPT) 21 [iU]/L (Normal) Range: 0-32 [...] Glucose, Serum 101 mg/dL (Abnormal) Range: 65-99 58-Yuc-141760:26 C-REACTIVE PROTEIN (87028) Comments: PATIENT NOT FASTINGPERFORMED BY: [facility] Avwzur9087 [facility] [id number] C-Reactive Protein, Quant 157.4 mg/L (Abnormal) Range: 0.0-4.9 :26 CBC (AUTO) (81820) Comments: PATIENT NOT FASTINGPERFORMED BY: [facility] Svykwj8580 [facility] [id number] Platelets 275 {x10E3/uL} (Normal) Range: 150-379 RDW 13.4 % (Normal) Range: 12.3-15.4 MCHC 33.9 g/dL (Normal) Range: 31.5-35.7 MCH 29.6 pg (Normal) Range: 26.6-33.0 MCV 87 fL (Normal) Range: 79-97 Hematocrit 39.2 % (Normal) Range: 34.0-46.6 Hemoglobin 13.3 g/dL (Normal) Range: 11.1-15.9 RBC 4.50 {x10E6/uL} (Normal) Range: 3.77-5.28 WBC 13.8 {x10E3/uL} (Abnormal) Range: 3.4-10.8 :26 KWAN (ANTINUCLEAR ANTIBODY) Comments: PATIENT NOT FASTINGPERFORMED BY: [facility] Pvpchr6768 [facility] [id number] (64916) KWAN Direct Positive (Abnormal) 56-Xrs-837618:21 Sed Rate Erythrocyte (21409) Comments: PATIENT NOT FASTINGPERFORMED BY: [facility] Ozufrc6110 [facility] [id number] Sedimentation Rate-Westergren 20 mm/h (Normal) Range: 0-32 60-Rkj-855304:21 Metabolic Panel, Comprehensive Comments: copy to Dr. sanchez; PATIENT NOT FASTINGPERFORMED BY: [facility] Eqnpxg7972 [employer] [facility] HealthcareHelpingDocFormerly [facility] [id number] (52606) ALT (SGPT) 23 [iU]/L (Normal) Range: 0-32 [...] Glucose, Serum 112 mg/dL (Abnormal) Range: 65-99 38-Fcb-193952:21 CBC, Platelets & Auto Comments: PATIENT NOT FASTINGPERFORMED BY: [facility] [facility] [address] [facility] [id number] Information: [id number] Diff (48592) Immature Grans (Abs) 0.0 {x10E3/uL} (Normal) Range: [...] 3.77-5.28 WBC 11.0 {x10E3/uL} (Abnormal) Range: 3.4-10.8 23-Uem-401093:21 Lipase (98324) Comments: PATIENT NOT FASTINGPERFORMED BY: LabCoSaint James HospitalIiwhib[facility] [facility] [id number] Lipase, Serum 33 U/L (Normal) Range: 0-59 16-Vfw-955598:23 GALLBLADDER See Note (Normal) Comments: Test performed at:[facility] [address] [place], [place] [id number] Comments: Patient: SANDRA RATLIFF : 1980 (34/F) Acct Num: [id number] Phys: Vi Sanchez MD Unit Num: [id number] Loc: [facility] Specimen: [id number] Received: 02/02/151541 Spec Type: GALL BLADDE TISSUES [...] average thickness andis free of mass lesions. Bioinformatics Associate sections of the gallbladder and the cystic duct are submitted in one cassette. / AM: 02/03/15 TC:3 CPT: 8 8304 HEADER OPERATION: Lap, cholecystectomy PRE-OP DIAGNOSIS: Calculus of gallbladder with acute cholecystitis TISSUE SUBMITTED: Gallbladder MICROSCOPIC DESCRIPTION Slides are reviewed. MICROSCOPIC DIAGNOSIS Gallbladder, cholecystectomy: Chronic cholecystitis and cholelithiasis. AM: 02/04/15 Signed Tr [facility] 02/04/15 <signature on file> 63-Ipr-768973:10 ,Urine Comments: Test performed at:[facility] [address] [place], [place] [address] ; ordered by another doctor HCGUQUAL Negative {Negative} (Normal) Comments: Very dilute urine specimens, as indicated by a low specificgravity, may not contain phone representative levels of hCG.If is still suspected, a first morning urinespecimen should be collected 48 hours later and tested. 29-Csb-29863:45 Basic Metabolic Profile (BMP) Comments: Test performed at:[facility] [address] [place] [address] GAP 10 (Normal) Range: 5-15 CO2 26.0 [...] Comments: Please note revised CREATININE reference range zjqjtayuv93/22/2015. BUN 13 mg/dL (Normal) Range: 7-18 GLU 112 mg/dL (Abnormal) Range: 70-110 Comments: Fasting Glucose result from 110 to <126 mg/dLsuggests IMPAIRED HOMEOSTASIS per A.D.A. criteria. 06-Cdn-63728:45 CBC W/Diff, Automated Comments: Test performed at:[facility] [address] [place], [place] [address] Absolute Lymph 4.26 {X10_3/ul} (Normal) Range: 0.83-4.51 [...] :45 Lipase Comments: Test performed at:[facility] [address] [place] [address] LIPASE 136 U/L (Normal) Range: 73-393 :45 Liver Profile Comments: Test performed at:[address] [place] [address] D BILI < 0.05 mg/dL [...] Urine Obtained? CLEAN CATCHTest performed at:[facility] [address] [place] [address] HCGUQUAL Negative {Negative} (Normal) Comments: Very dilute urine specimens, as indicated by a low specificgravity, may not contain phone representative levels of hCG.If is still suspected, a first morning urinespecimen should be collected 48 hours later and tested. :45 Urinalysis, Complete Comments: Order Date: 02/01/15How was Urine Obtained? CLEAN CATCHTest performed at:[facility] [address] [place] [address] MUCUS, URINE 0 SEEN {/hpf} [...] Clear (Normal) COLOR Yellow (Normal) :45 CALCIFIDIOL (01196) VIT D 25 Comments: PATIENT NOT FASTINGPERFORMED BY: rapt.fm [facility] [id number] Vitamin D, 25-Hydroxy 42.1 ng/mL (Normal) Range: 30.0-100.0 Comments: Vitamin D deficiency has been defined by the [place] ofMedicine and an Endocrine Society practice guideline as alevel of serum 25-OH vitamin D less than 20 ng/mL (1,2).The Endocrine Society went on to further define vitamin Dinsufficiency as a level between 21 and 29 ng/mL (2).1. IOM ([place] of Medicine). 2010. Dietary reference intakes for calcium and D. [place]: The National Academies Press.2. Clari MF, Jose [place], Ash NETTLES, et al. Evaluation, treatment, and prevention of vitamin D deficiency: an Endocrine Society clinical practice guideline. JCEM. 2010; 96(7):1911-30. :45 Metabolic Panel, Basic Comments: PATIENT NOT FASTINGPERFORMED BY: [employer] [facility] Izpsrb6868 [employer] [facility] [id number] Information: [id number] (50714) Calcium, Serum 9.6 mg/dL (Normal) Range: 8.7-10.2 [...] Glucose, Serum 100 mg/dL (Abnormal) Range: 65-99 08-Yzl-510612:50 Rapid Flu (30088 x 2) Influenza A Ag neg (Normal) :29 LIPID PANEL (18370) Comments: PATIENT WAS FASTINGPERFORMED BY: wywy [address] [facility] [id number] Information: [id number] LDL/HDL Ratio 2.6 {ratio_units} (Normal) Range: 0.0-3.2 [...] Metabolic Panel, Comments: PATIENT NOT FASTINGPERFORMED BY: wywyLovelace Medical CenterItiyss9388 [facility] [id number] Information: [id number] Comprehensive (03664) ALT (SGPT) 25 [iU]/L (Normal) Range: 0-32 [...] 87 mg/dL (Normal) Range: 65-99 12-Jan-20139:50 CALCIFEDIOL (16328) Comments: PATIENT NOT FASTINGPERFORMED BY: LabCoSaint James HospitalMfykkv4[address] [facility] [id number] Vitamin D, 25-Hydroxy 42.6 ng/mL (Normal) Range: 30.0-100.0 Comments: Vitamin D deficiency has been defined by the [place] of[place]icine and an Endocrine Society practice guideline as alevel of serum 25-OH vitamin D less than 20 ng/mL (1,2).The Endocrine Society went on to further define vitamin Dinsufficiency as a level between 21 and 29 ng/mL (2).1. IOM ([place] of Medicine). 2010. Dietary reference intakes for calcium and D. [place]: The National Academies Press.2. Clari MF, Jose [place], Ash NETTLES, et al. Evaluation, treatment, and prevention of vitamin D deficiency: an Endocrine Society clinical practice guideline. JCEM. 2010; 96(7):1911-30. :08 CATU tDOP 108 ug/L (Normal) tDOP24 255 {ug/24_hr} (Normal) Range: 0-510 Comments: TESTING PERFORMED AT [facility]. ORIGINAL REPORT ON FILE IN LAB CONTAINS ADDITIONAL TEST SITE INFORMATION. tEPIN24 < 2 {ug/24_hr} (Normal) Range: 0-20 tNORE 16 ug/L (Normal) tNORE24 38 {ug/24_hr} (Normal) Range: 0-135 tEPIN < 1 ug/L (Normal) :08 KWESI 20.48 ug/dL (Normal) Range: 3.09-22.40 Comments: Adult (AM) 4.30 - 22.40 ug/dL Adult (PM) 3.09 - 16.66 ug/dL :08 DHEA 26.2 ug/dL (Abnormal) Range: 98.8-340.0 50-Kip-902249:08 METAU tMETA 24 ug/L (Normal) tMETA24 57 {ug/24_hr} (Normal) Range: 45-290 Comments: (Hypertensive) >17 years 11 months: 35 - 460 . Please note reference interval change tNORM24 219 {ug/24_hr} (Normal) Range: 82-500 Comments: (Hypertensive) >17 years 11 months: 110 - 1050 tNORM 93 ug/L (Normal) 17-Tmi-594678:08 MISC . (Normal) Comments: TEST RESULT QWIEGN37-Esmfrtktpgnwczvfhyv, MS 17 [place] Pregnenolone, Serum MS < 10 ng/dL Reference Range: Adults: 53 - 357 [facility]. ORIGINAL REPORT ON FILE IN LAB CONTAINS ADDITIONAL TEST SITE INFORMATION. :08 PROL 10.2 ng/mL (Normal) Range: 4.8-23.3 :08 TESTOF <0.2 pg/mL (Normal) Range: 0.0-2.2 Comments: Performed at: - [address] [id number] Director: Davide Jordan MD, Phone: [phone] at: - [place]CoBill [place] [address]Rta Director: Andra Reyes MD, Phone: [phone] 38-Ncn-088433:08 VMA tVMA24 3.1 {mg/24_hr} (Normal) Range: 0.0-7.5 [...] 7-18 GLU 92 mg/dL (Normal) Range: 70-110 89-Huv-360757:56 VIT D,25 34217 33.7 ng/mL (Normal) Range: 30.0-100.0 Comments: Vitamin D deficiency has been defined by the [place] of[facility] and an Endocrine Society practice guideline as alevel of serum 25-OH vitamin D less than 20 ng/mL (1,2).The Endocrine Society went on to further define vitamin Dinsufficiency as a level between 21 and 29 ng/mL (2).1. IOM ([place] of Medicine). 2011. Dietary reference intakes for calcium and D. [place]: The National Academies Press.2. Clari MF, [place], Ash NETTLES, et al. Evaluation, treatment, and prevention of vitamin D deficiency: an Endocrine Society clinical practice guideline. JCEM. 2010; 96(7): 1911-30.Performed at: [facility] [address] [id number] Director: Andra Reyes MD, Phone: [phone] 43-Gjg-002021:57 MICROALB:CRE UR MALB:CREAT 25.7 {mg/g_CRE} (Normal) MICROALBUMIN,UR 40.9 mg/L (Normal) UR CREAT 159.1 mg/dL (Normal) 4-Yrb-306098:09 MYOCARD PERF STRESS/REST MULT Radiology Report See Note (Normal) Comments: EXERCISE MYOCARDIAL PERFUSION SCAN DIZYCBGHekzeo-ndfv-nen with a history of hypertension and abnormal EKG. SXSGBLYCF63 mCi of Sestamibi was injected at rest. [...] HARGROVE,Stephane on 03/10/11 1446 Sign by: Tamar HARGROVE,Shushan 9-Kss-[id number]: VIT D,25 08266 28.7 ng/mL Range: 32.0-100.0 10 (Abnormal) Comments: Recent studies consider the lower limit of 32.0 ng/mL to guy threshold for optimal health.Rakan BOWENS. J Nutr. 2004;135(2):317- 22.Performed at: [place] [address] Director: Andra Reyes MD, Phone: [phone] TSH 2.62 {uIU/mL} Range: 0.358-3.74 :41 (Normal) [...] 7-18 GLU 78 mg/dL (Normal) Range: 70-110 48-Yes-65646:57 CBCD,SMEAR DIFF RED CELL MORPH SeeNote {NORMAL} [...] BETA STREPTOCOCCUS :28 Rapid Strep Test, Office (86543) Rapid Strep Test, Office Negative (Normal) 7-Mfr-262861:39 HCG QUANT. 90416 m[iU]/mL (Abnormal) 1-Fsz-197233:39 ,SERUM HCGSQUAL SeeNote m[iU]/mL (Normal) Range: 0-9 [...] of hypertension Planned Observations Food Allergy Profile (23936)Indication: Allergic to food (Renamed from Food allergy) On: :28 Request T4, FREE (THYROXINE) (01081)Indication: Abnormal thyroid blood test On: :22 Request TSH (48765)Indication: Abnormal thyroid blood test On: :22 Request CALCIFIDIOL (42217) VIT D 25Indication: Vitamin D deficiency, unspecified On: :22 Request CBC (Auto) (03340)Indication: KWAN positive On: :21 Request Metabolic Panel, Comprehensive (52470)Indication: KWAN positive On: :21 Request Thin prep Pap (29637) (no STD testing)Indication: Well woman exam (Renamed from Encounter for well woman exam) On: :13 Request PT (Prothrobim Time) (37180)Indication: Preop examination On: 98-Cxd-326680:36 Request CBC WITH MANUAL DIFF (59156)Indication: Preop examination On: 00-Tdo-184531:36 Request T4, FREE (THYROXINE) (51655)Indication: Abnormal thyroid blood test On: : Request TSH (46142)Indication: Abnormal thyroid blood test On: : Request CALCIFIDIOL (90091) VIT D 25Indication: Vitamin D deficiency, unspecified On: : Request MICROALBUMIN: CREATININE RATIO (44795) AND (94272)Indication: Proteinuria On: Request METABOLIC PANEL, COMPREHENSIVE (65604)Indication: Antiphospholipid syndrome On: Request CBC with auto diff (90490)Indication: Antiphospholipid syndrome On: Request LIPOPROTEIN, BLD, BY NMR (75191)Indication: Hyperlipidemia, unspecified hyperlipidemia type On: : Request MICROALBUMIN: CREATININE RATIO (24121) AND (87783)Indication: Proteinuria On: 92-Obe-775300:10 Request LEUKOCYTE COUNT, FECAL (37254)Indication: Abdominal pain, acute On: 34-Fql-262241:10 Request OVA & PARASITE DIR SMEAR (25873)Indication: Abdominal pain, acute On: 35-Ytn-456657:10 Request Clostridium difficile Toxin A+B, EIA (88665)Indication: Abdominal pain, acute On: 72-Tgv-005994:10 Request AUTUMN CULTURE-STOOL (12331)Indication: Abdominal pain, acute On: 27-Iyt-705694:10 Request Rapid Flu (44491 x 2)Indication: Flu-like symptoms On: 89-Kty-580240:01 Request EB ANTIBODY NUCLR ANTIGN (34380)Indication: Fatigue On: 83-Hmq-256018:01 Request Rapid Flu (38319 x 2)Indication: Fever and chills On: 70-Kdx-260746:00 Request POTASSIUM SERUM (02794)Indication: Hypokalemia On: 2-Ouy-295910:48 Request PROLACTIN (82094)Indication: Amenorrhea On: 2-Hiz-070018:56 Request DHEA-S (DEHYDROEPIANDROSTERONE SULFATE) (31120)Indication: Amenorrhea On: 1-Jsq-077077:55 Request TESTOSTERONE FREE (84059)Indication: Amenorrhea On: :55 Request 17-HYDROXYPREGNENOLONE (42666)Indication: Amenorrhea On: :52 Request CORTISOL FREE (05136)Indication: Elevated blood-pressure reading without diagnosis of hypertension On: :49 Request METANEPHRINES - URINE (59233)Indication: Elevated blood-pressure reading without diagnosis of hypertension On: :49 Request CATECHOLAMINES TOTAL, URINE (05667)Indication: Elevated blood-pressure reading without diagnosis of hypertension On: :49 Request URINE VMA (35735)Indication: Elevated blood-pressure reading without diagnosis of hypertension On: :49 Request Metabolic Panel, Basic (39153)Indication: Stress reaction On: :29 Request MICROALBUMIN: CREATININE RATIO (51877) AND (44484)Indication: Unspecified Diagnosis On: 31-Gsq-310295:18 Request CALCIFEDIOL (35378)Indication: Elevated blood-pressure reading without diagnosis of hypertension On: 91-Zmq-079299:14 Request TSH (46881)Indication: Elevated blood-pressure reading without diagnosis of hypertension On: 28-Evu-438969:13 Request METABOLIC PANEL, COMPREHENSIVE (35637)Indication: Nausea On: :40 Request Lipase (25244)Indication: Nausea On: 03-Jgb-708414:40 Request TEST - SERUM QUANTITATIVE (HCG) (40825)Indication: Amenorrhea On: :40 Request Amylase (87017)Indication: Nausea On: 08-Zfm-068654:40 Request METABOLIC PANEL, COMPREHENSIVE (42200)Indication: Palpitations On: :47 Request CBC WITH MANUAL DIFF (07256)Indication: Palpitations On: :47 Request TSH (35796)Indication: Palpitations On: :47 Request AUTUMN CULTURE-OTHER (63796)Indication: Acute pharyngitis On: :28 Request BHCG (HUMAN CHORIONIC GONADOTROPIN - BETA) (61112)Indication: Amenorrhea On: 96-Kam-440065:22 Request HCG (HUMAN CHORIONIC GONADOTROPIN) (22939)Indication: Amenorrhea On: 64-Fvw-519637:22 Request Planned Encounters Medical; TIFFANIE 2 Month FU - On: 26-Jun-2018 9:15 [facility] Michelle Reaves MD, MD, Dana M Planned Procedures MRI OF LEFT KNEE WITHOUT CONTRAST On: 20-Feb-2018 Intent (35859)By: Michelle Reaves MD Comments: will plan for 4 weeks. Michelle HARGROVE DRAIN/INJECT MAJOR JOINT OR BURSA On: 10-Feb-2018 Intent (24891)By: Michelle Reaves MD Comments: 2 cc Marcaine lot# [id number] exp 1 cc kenalog lot# [id number] exp rte: left knee intra articular dose: as above given by:Dr. Jensen Hall LPN MD, Dana M Radiology - Knee - Left - Weight On: 07-Feb-2018 Intent BearingBy: Michelle Reaves MD, MD, Dana M SPECIMEN HNDLNG/TRNSPRT, OFFC > LAB On: 18-Jun-2016 Intent (86796)By: Michelle Reaves MD, MD, Dana M SPECIMEN HNDLNG/TRNSPRT, OFFC > LAB On: 04-Jun-2016 Intent (63053)By: Michelle Reaves MD, MD, Dana M Radiology - Small Bowel Series On: 18-Nov-2015 Intent (50140)By: Michelle Reaves MD, MD, Dana M Radiology - KUBBy: Kirsten Arias CNP On: 31-Aug-2015 Intent Comments: call to MCiesa INFUSION, NORMAL SALINE SOLUTION , On: 31-Aug-2015 Intent 1000 CC (Special Coverage Comments: 1000 ccIVleft antecub.tolerated well22 [facility] 57-007jtexp 03/2017RUTH steen Instructions Apply. See [...] read. ELECTROCARDIOGRAM, COMPLETE (ECG) On: 19-Jan-2014 Intent (86505)By: Michelle Reaves MD, MD, Dana M Eprescribed prescriptions (G8553)By: On: 02-Jun-2013 Intent Long INSURANCE AGENT, Kathy L EKG (13266)By: Michelle Reaves MD On: 27-Jan-2013 Intent Michelle Reaves MD Comments: see scanned document of test done to see results reviewed today with patient Eprescribed prescriptions (G8553)By: On: 27-Jan-2013 Intent Long INSURANCE AGENT, Kathy L TDAP VACCINE >7 IM (31790)By: Jensen On: 30-Apr-2011 Intent Michelle HARGROVE MD, Dana M FLU VAC, SPLIT, >3 YEARS, INTRAMUSC On: 30-Apr-2011 Intent (91707)By: PHILLIP Leigh Comments: Lot #:[id number] date:mount given:0.5mlRoute: IMSite given:left deltoid Given by: HBryan IMMUNIZ ADMNIN, 1 VAC, SNGL/COMBO On: 30-Apr-2011 Intent (48540)By: PHILLIP Leigh Nuclear Stress Test/Stress On: 05-Mar-2011 Intent SPECT/TreadmillBy: Kirsten Arias CNP ELECTROCARDIOGRAM, COMPLETE (ECG) On: 05-Mar-2011 Intent (42948)By: Kirsten Arias CNP Bio Z (28896)By: Kirsten Arias CNP On: 05-Mar-2011 Intent Holter Moniter (39381)By: Pop HORAN, On: 29-Nov-2010 Intent Atiya EKG (79682)By: Indu Mai LPN On: 29-Nov-2010 Intent Comments: [...] Advance Directives Name Dates Details Immunization Registry [place] - Effective on Effective: 05-Jul-201707/05/2017. Expiration date [...] fever. Note for Insect bite/sting: was in [place]- she got lots of bites not sure [...] Nutrition: balanced diet and supplemental vitamins. 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
--- OUTSIDE RECORDS SUMMARY | 2018-08-05 17:33 | XMS RPT_ITS | Continuity of Care Document ---
:1980 Author Organization [facility] Address [facility] [address] [address] Phone Care Team Providers Name Role Phone Jensen HARGROVE, Michelle Lenz Unavailable Tavia HARGROVE, Ravinder Unavailable Rico HARGROVE, Sancho Mcdaniel Unavailable Jasmyne Martin Unavailable Ofe Jay Unavailable Yohan HARGROVE, Vi Lenz Unavailable Stefany HARGROVE, Davide Stone Unavailable Dr. Murali Mondragon Unavailable PHILLIP Leigh Unavailable Unavailable Kristine Langley Unavailable Unavailable Rafael Tariq Unavailable Unavailable Unavailable Unavailable Problems Name Dates [...] grade fever. Dr. 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 rightn ow no [...] behavior issues. she works across the [place] [employer] he is at and hard for [...] Wellness exam, last pap 05/2017 good, colonscopy 2015, never had mammogram, already had flu vaccine [...] bacteria link. on a good one through [facility], on probiotics lfts good Status: Active H/O leukocytosis (Z86.2, V12.3) Comments: estr good work up being down. ? bile duct issue because with abd and GB but liver normal willrec goes down after IV fliuds related to abd pain episodes Status: Active HELLP syndrome, antepartum (O14.20, 642.53) Comments: [address] Josh Lemus in vasuclar at [facility] and Dr. Jessica jama at [facility] severe preeclampsia Status: Active Hives (L50.9, 708.9) [...] on the top of patella. Status: Active Need for prophylactic vaccination and inoculation against influenza (Renamed from Need for immunization against influenza) (Z23, V04.81) Status: Active Nonsmoker (Z78.9, V49.89) Status: Active Obesity, unspecified (E66.9, 278.00) Comments: ws eating well before sick 12- 16 stress wtih son's behavior. stress eating. willstart withthe exercise for stress release then diet to follow.n when walk not feel need at much to [facility]. talk about l oggong but [...] D deficiency, unspecified (E55.9, 268.9) Comments: goo drecently on 2000 units a day Status: Active [...] Lenz Start : 23-Feb-2016 Active Comments:twenty Creon 93773 UNIT Oral Capsule Delayed Release Particles 1 [...] Refills: 0 Ordered:26-Jul-2017 Michelle Reaves MD, MD, Dana M Start : 05-Jul-2017 End : 12-Jul-2017 Inactive [...] : 24-Jan-2018 End : 07-Feb-2018 Inactive ERGOCALCIFEROL, 32200UALG (Oral Capsule) 1 Capsule twice weekly for [...] Quantity: 10 {Tablet} Refills: 0 Ordered:16-Nov-2016 Jensen HARGROVEMichelle MD, Dana M Start : 16-Nov-2016 End : 26-Nov-2016 Inactive [...] : 02-Feb-2011 End : 30-Apr-2011 Inactive Nystatin 623835 UNIT/GM External Powder 1 (one) Powder Powder [...] days Quantity: 90 {Tablet} Refills: 2 Ordered:02-Jun-2013 Michelle Reaves MD, MD, Dana M Start : 02-Jun-2013 End : 02-Jun-2013 Discontinued [...] of diarrhea. fevers elevated WBC. GB out 1-15 had intense pain then. colonscopy -[address] scan - and 16 good. pelvic us done. 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 Status: Inactive as of 01-Mar-2014 Elevated WBC [...] 686.9) Comments: went into cell[facility]is after at [facility] in water. will do soap cleanses [...] resolve on atb and will follow up [facility] ent Status: Resolved as of 10-May-2017 [...] Visit Report Result: Comments: See Note; NOTES: [facility] [address] [place] [address] OFFICE VISIT Date of Service: 05/06/18 MR#: [id number] Acct: [id number] Name: SANDRA RATLIFF Rep #: [id number] : 1980 Provider: Ofe Jay DO Age/Sex: 37/F Location: [facility] Status: Signed Intake Intake Visit Reasons: LEFT KNEE Is patient in pain?: Yes Al stevie amoxicillin Allergy (Verified 05/06/18 15:24) Rash tobramycin [...] #10 cap 11/17/15 [Rx] Hydrocodone Bitart/Apap 5-325 [[place] 5/325] 1 - 2 tab PO Q4H [...] treatment options are d o nothing, injection, ME-EYE eval or knee scope for debridement. We [...] of meniscus of left knee M23.307 05/06/18 1635 <Electronically signed by Ofe Jay DO> Date Ofe Jay DO Cosigner Signature: Date (if applicable) CC: 03-Apr-2018 Lower Ext Joint Only (Routine) Result: Comments: See Note; NOTES: [facility] Imaging Services [address] [place] [address] Lower Ext Joint Only (Routine) MR#: [id number] Acct: [id number] Name: SANDRA RATLIFF Rep #: [id number] : 1980 F 37 From: Laurent Amos MD PCP: Michelle Reaves MD Status: REG CLI Study: Lower Ext Joint Only (Routine) Date of Exam: 04/03/18 Exam# [id number] Ordering Dr: Michelle Reaves MD STUDY: MRI [...] Service support , CC: Michelle Reaves MD Internal Security Manager: Signed 31-Mar-2018 PT D/C Summary (1) Result: Comments: See Note; NOTES: [facility] [address] [place] [address]. [address] [place] [phone] Fax [facility] SUMMARY MR#: [id number] Acct: [id number] Name: SANDRA RATLIFF Rep #: [id number] : 1980 37 From: Keri Mack PT, Cert. MDT Referring Dr.: Michelle Reaves MD Status: REG RCR Insurance: [facility] SELF PAY INSURANCE HP - PT D/C [...] NOW BUT THE POPPING AND SWELLING CONTINUES. PATIGALILEO T REPORTS SHE HAS BEEN ABLE TO [...] please feel free to call me at [phone]. Thank you for the referral of this patient. Sincerely, Keri Mack <Electronically signed by Keri Mack PT, Cert. MDT> 03/31/18 1407 CC: Michelle Reaves MD ZELDA Signed 04-Mar-2018 Inital Evaluation (1) - PT Result: Comments: See Note; NOTES: [facility]. [address] [place] [address] Fax REHABILITATION SERVICES INITIAL EVALUATION MR#: [id number] Acct: [id number] Name: SANDRA RATLIFF Rep #: [id number] : 1980 37 From: Keri Mack PT, Cert. MDT Referring Dr.: Michelle Reaves MD Status: REG RCR Insurance: [facility] SELF PAY INSURANCE Patient's Visit Information SANDRA [...] - Subjective Encarnacion bjective: Work/Leisure: [employer]. Disability: NO. Present symptoms: INSIDE OF LEFT KNEE. NO NUMBNESS OR TINGLING. IT POPS. Present since: MID JANUARY 2018. Pain Scale: WORST 5/10, LEAST 1/10. Currently: 2/10. Commenced as a result of: GETTING INTO [...] to be FAXED BACK to us at [phone] for Medicare purposes. Please let me know if there are questions or concerns regarding this plan of c are. Physician Signature: Date: <Electronically signed by Keri Mack PT Cert. MDT> 03/04/18 1248 CC: Michelle Butterfield ZELDA Signed For Medicare only, by signing this I certify the plan of care. Physicians Signature Date 08-Feb-2018 Knee 4 or More Views Result: Comments: See Note; NOTES: [facility] Imaging Services [address] [place] [address] Knee 4 or More Views MR#: [id number] Acct: [id number] Name: SANDRA RATLIFF Rep #: [id number] : 1980 F 37 From: Caity Felix MD PCP: Michelle Reaves MD Status: REG CLI Study: Knee 4 or More Views Date of Exam: 02/08/18 Exam# [id number] Ordering Dr: Michelle Reaves MD STUDY: X-RAY - LEFT KNEE REASON FOR EXAM: Female, 37 years old. [place] pop swelling pain TECHNIQUE: 4 view(s) of [...] Tel , Service support , Fa x [phone] CC: Michelle Reaves MD Internal Security Manager: Signed 22-Nov-2015 Emergency Department Summary Result: Comments: See Note; NOTES: [facility] Medical Records Department [address] [place] [address] Emergency Department Summary MR#: [id number] Acct: [id number] Name: SANDRA RATLIFF Rep #: [id number] : 1980 35 From: Bulmaro Rodriguez MD [...] with Dr. Reaves, return with any problems. [place] diet, fluids. CLINICAL IMPRESSION: Abdominal pain with nausea and diarrhea. DISPOSITION: Home. MD Chase Odom C: Michelle Reaves MD T: [facility] JOB: [id number] 11/22/15 2339 <Electronically signed by Bulmaro Rodriguez MD> Date Bulmaro Rodriguez MD Cosigner Signature (If Indicated): Date CC: Michelle Reaves MD Date Dictated: 11/17/15 1240 Date Transcribed: 11/17/15 1240 Internal Security Manager: Signed 22-Nov-2015 Small Bowel Series Only Result: Comments: See Note; NOTES: [facility] Imaging Services [address] [place] [address] Verda 4d Small Bowel Series Only MR#: [id number] Acct: [id number] Name: HER SANDRA MCKEON Rep #: [id number] : 1980 F 35 From: Leigha Colon MD PCP: Michelle Reaves MD Status: REG CLI Study: Small Bowel Series Only Date of Exam: 11/22/15 Exam# [id number] Ordering Dr: Michelle Medina MD STUDY: AIR-CONTRAST [...] spot views were obtained COMPARISON: None. FINDINGS: Forging Operator view: The bowel gas pattern is [...] at 16:48 EDT Tel , Service support [phone], RAD/Small Bowel Series Only IMPRESSION: Unremarkable study. Electronically Signed: Leigha Colon MD at 16:48 E DT Tel , Service support [phone], CC: Michelle Reaves MD Internal Security Manager: Signed 17-Nov-2015 Discharge Instruction Result: Comments: See Note; NOTES: [facility] Medical Records Department [address] [place] [address] Discharge Instruction 11/17/15 1236 MR#: [id number] Acct: [id number] Name: SANDRA RATLIFF Rep #: [id number] : 1980 35 From: Bulmaro Rodriguez MD PCP: Michelle Reaves MD Status: REG ER ED Disposition - Plan for ED Patient: Disposition: Home or Assisted Living Chief Complaint: Abd Pain Instructions: ED Abdominal Pain, Unknown Cause, (Female), ED Vomiting And Diarrhea, Nonspecific (Adult) Prescriptions: Hydrocodone Bitart/Apap 5-325 [[place] 5/325] 1 - 2 t ablet PO [...] problems, contact your doctor. Call [facility] ([phone]) or report to the closest [facility] Room. Call 911 if necessary. 11/17/15 1238 <Electronically signed by Bulmaro Rodriguez MD> Date Bulmaro [place] (If Indicated): Date CC: Michelle Reaves MD 17-Nov-2015 Abdomen/Pelvis WITH Contrast Result: Comments: See Note; NOTES: [facility] Imaging Services [address] [place] [address] Verdana 4d Abdomen/Pelvis WITH Contrast MR#: [id number] Acct: [id number] Name : SANDRA RATLIFF Rep #: [id number] : 1980 F 35 From: Isaac Espinoza MD PCP: Michelle Reaves MD Status: [facility] ER Study: Abdomen/Pelvis WITH Contrast Date of Exam: 11/17/15 Exam# [id number] [facility] Dr: Bulmaro Rodriguez MD STUDY: CT ABDOMEN AND PELVIS WITH CONTRAST REASON FOR EXAM: Female, 35 years old. Mid lower abdominal pain. Diarrhea and nausea. RADIATION DOSAGE (If Supplied By [facility]): CTDIvol = ( 18.40 ) [...] is made with prior study dated [facility] 2015. FINDINGS: The visualized lung bases [...] Isaac Espinoza MD at 12:27 EDT Tel [phone], Service support [phone], CC: Michelle Reaves MD; Bulmaro Rodriguez MD Internal Security Manager: Signed 13-Nov-2015 Operative Report Result: Comments: See Note; NOTES: [facility] Medical Records Department [address] [place] [address] Operative Report MR#: [id number] Acct: [id number] Name: NITIN RATLIFF Rep #: [id number] : 1980 35 From: Vi Sanchez MD [...] complications. Vi Sanchez MD T: [facility] JOB: [id number] 11/13/15 0940 <Electronically sig shawn by Vi Sanchez MD> Date Vi Sanchez MD Cosigner Signature (If Indicated): Date C C: Michelle Reaves MD; Vi Sanchez MD Date Dictated: 11/07/15910 Date Transcribed: 11/07/15910 Internal Security Manager: Signed 31-Aug-2015 Abdomen Single View Result: Comments: See Note; NOTES: [facility] Imaging Services [address] [place] [address] Verdana 4d Abdomen Single View MR#: [id number] Acct: [id number] Name: SANDRA RATLIFF Rep #: [id number] : 1980 F 35 From: Isaac Espinoza MD PCP: Michelle Reaves MD Status: REG CLI Study: Abdomen Single View Date of Exam: 08/31/15 Exam# [id number] Ordering Dr: Kirsten Arias STUDY: X-RAY - [...] Isaac Espinoza MD at 13:18 EST Tel [phone], Service support [phone], RAD/Abdomen Single View IMPRESSION: Normal x-ra y examination of the abdomen and pelvis. Electronically Signed: Isaac Espinoza MD at 13:18 EST Tel [phone], Service support [phone], CC: Kirsten Arias ; Michelle Reaves MD Internal Security Manager: Signed 29-Jul-2015 Transvaginal Non- Result: Comments: See Note; NOTES: [facility] Imaging Services [address] [place] [address] Verdana 4d Transvaginal Non- MR#: [id number] Acct: [id number] Name: SANDRA ZAVALA Rep #: [id number] : 1980 F 35 From: Isaac Espinoza MD PCP: Michelle Reaves MD Status: REG CLI Study: Transvaginal Non- Date of Exam: 07/29/15 Exam# [id number] Orderi Dr: Michelle Reaves MD STUDY: ULTRASOUND OF [...] Isaac Espinoza MD at 14:01 EST Tel [phone], Service support [phone], CC: Michelle Reaves MD Internal Security Manager: Signed 29-Jul-2015 Pelvic (Non ) Result: Comments: See Note; NOTES: [facility] Imaging Services [address] [place] [address] Verdana 4d Pelvic (Non ) MR#: [id number] Acct: [id number] Name: SANDRA BELLE Rep #: [id number] : 1980 F 35 From: Isaac Espinoza MD PCP: Michelle Reaves MD Status: REG CLI Study: Pelvic (Non ) Date of Exam: 07/29/15 Exam# [id number] Ordering Dr: Michelle Ponce MD STUDY: ULTRASOUND [...] Isaac Espinoza MD at 14:01 EST Tel [phone], Service support [phone], CC: Michelle Reaves MD Internal Security Manager: Signed 25-Jul-2015 Abdomen/Pelvis WITH Contrast Result: Comments: See Note; NOTES: [facility] Imaging Services [address] [place] [address] [place] 4d Abdomen/Pelvis WITH Contrast MR#: [id number] Acct: [id number] Name : SANDRA RATLIFF Rep #: [id number] : 1980 F 35 From: Isaac Espinoza MD PCP: Michelle Reaves MD Status: REG CLI Study: Abdomen/Pelvis WITH Contrast Date of Exam: 07/25/15 Exam# [id number] Ordering Dr: Michelle Reaves MD STUDY: CT [...] Isaac Espinoza MD at 9:19 EST Tel [phone], Service support [phone], CC: Michelle Reaves MD Internal Security Manager: Signed 07-Jul-2015 Abdomen Limited Result: Comments: See Note; NOTES: [facility] Imaging Services [address] [place] [address] Verdana 4d Abdomen Limited MR#: [id number] Acct: [id number] Name: JEANNIE RATLIFF Rep #: [id number] : 1980 F 35 From: Leigha Colon MD PCP: Michelle Reaves MD Status: REG CLI Study: Abdomen Limited Date of Exam: 07/07/15 Exam# [id number] Ordering Dr: Michelle Reaves MD STUDY: ABDOMINAL [...] at 16:22 EST Tel , Service support [phone], CC: Michelle Reaves MD Internal Security Manager: Signed 22-Apr-2015 OT Discharge Summary Result: Comments: See Note; NOTES: [facility] [address] [facility] [place], [place] [address] Fax REHABILITATIO N SERVICES DISCHARGE SUMMARY MR#: [id number] Acct: [id number] Name: SANDRA RATLIFF Rep #: [id number] : 1980 34 From: Bernarda De La [...] However, she did make some improvements. Her belt cleaner strength improved from 35 pounds to 70 pounds. She was reporting independence with act ivities of daily living at this time. The patient was last seen on January 11, 2015, no further appointments were indicated. At this time, the patient is discharged. Bernarda De La Vega, OTR/L T: EMILY JOB: [id number] <Electronically signed by Bernarda De La Vega > 04/22/15 1057 CC: Signed 10-Feb-2015 Operative Report Result: Comments: See Note; NOTES: [facility] Medical Records Department [address] [place] [address] [place] [address] Operative Report 02/02/15 1305 MR#: [id number] Acct: [id number] Name: SANDRA DAUGHERTY Rep #: [id number] : 1980 34 From: Vi Sanchez MD PCP: Michelle Reaves MD Status: DEP [facility] [place] Location[place] [facility] Report of Operation Date of Procedure: 02/02/15 Pre-Operative Diagno sis: cholelithiasis, cholecystitis Post-Operative Diagnosis: same Surgery/Procedure Performed:: laparoscopic cholecystectomy with cholangiogram wrapper sheeter: NOT,DEFINED Type of Anesthesia:: General Anesthesiologist: Aide [...] Lead Electrocardiogram Result: Comments: See Note; NOTES: [facility] Cardiovascular Services [address] [place] [address] 12 Lead EKG 02/02/159 MR#: [id number] Acct: [id number] Name: ELISABETH RATLIFF Rep #: [id number] : 1980 34 From: Stephane Boyle MD Attending Dr: Vi Sanchez MD Status: DEP [facility] Ordering Dr: Buzz Collins MD Date: 02/02/15 [place] [facility] Sex: F C Admitted: Test Yesica son : PRE OP Blood Pressure : / mmHG Vent. Rate : 074 BPM Atrial Rate : 074 BPM P-R Int : 134 ms QRS Dur : 110 ms QT Int : 378 ms P-R-T Axes : 051 071 046 degrees QTc Int : 419 ms Normal sinus rhythm Normal ECG No previous ECGs available Confirmed by STEPHANE BOYLE MD ([id number]), metropolitan editor JASMIN RAMOS ([id number]) on 02/04/2015 10:20:06 AM Referred By: LALO Confirmed By:STEPHANE BOYLE MD 1020 Date Stephane Boyle MD CC: Michelle Reaves MD Date Dictated: 02/02/151128 Date Transcribed: 02/02/151128 Internal Security Manager: Signed 04-Feb-2015 Emergency Department Summary Result: Comments: See Note; NOTES: [facility] Medical Records Department [address] [facility] [address] Emergency Department Summary MR#: [id number] Acct: [id number] Name: SANDRA BELLE Rep #: [id number] : 1980 34 From: Naldo Schaeffer MD [...] Chase Perdomo C: Michelle Reaves MD T: [facility] JOB: [id number] 02/04/15 1534 <Electronically signed by Naldo Schaeffer MD> Date Naldo quintanilla MD CC: Michelle Reaves MD Date Dictated: 02/01/1537 Date Transcribed: 02/01/15536 Internal Security Manager: Signed 02-Feb-2015 Discharge Instruction Result: Comments: See Note; NOTES: [facility] Medical Records Department [address] [place] [address] Instructions for Home/Discharge Instructions 02/02/15 1305 MR#: [id number] ct: [id number] Name: SANDRA RATLIFF Rep #: [id number] : 1980 34 From: Vi Sanchez MD PCP: Michelle Reaves MD Status: REG SDC Discharge Diet: No Restrictions - drink plenty [...] for date and time, thank you 02/02/15 1424 <Electronically deangelo d by Vi Sanchez MD> Date Vi Sanchez MD CC: Michelle Reaves MD 02-Feb-2015 History and Physical Exam Result: Comments: See Note; NOTES: [facility] Medical Records Department [address] [place] [address] History and Physical 02/02/15 1155 MR#: [id number] Acct: [id number] Name: SANDRA RATLIFF Rep #: [id number] : 1980 34 From: Vi Sanchez MD PCP: Michelle Reaves MD Status: REG [facility] [place] Location: [place] [address] History and Physical - Blank Date of Admission: 02/02/15 [facility] Provider: Dr. Reaves History of Present [...] Morbid obesity, class III Past Surgical History: [place] teeth extraction C section 2010 Past injuries: [...] 77 / minute Resp: 18 per min [place] BP sittin / 83 General: well developed, [...] 01-Feb-2015 Gallbladder Result: Comments: See Note; NOTES: [facility] Imaging Services [address] [place] [address] Ultrasound Report MR#: [id number] Acct: [id number] Name: SANDRA RATLIFF Rep #: [id number] : 1980 F 34 From: Deonte Woods DO PCP: Michelle Reaves MD Status: REG CLI Study: Gallbladder Date of Exam: 02/01/15 Exam# [id number] Ordering Dr: Michelle Reaves MD STUDY: ABDOMINAL [...] Deonte Woods DO at 17:18 EDT Tel [phone], Service suppor t [phone], N.B. : The above information has been verbally conveyed by Deonte Woods DO to Michelle Reaves MD, Referring Physician, on 02/01/2015 17:24:35 (ET). CC: Michelle Reaves MD Internal Security Manager: Signed 01-Feb-2015 Discharge Instruction Result: Comments: See Note; NOTES: [facility] Medical Records Department [address] [place] [address] Discharge Instruction 02/01/15 0534 MR#: [id number] Acct: [id number] Name: SANDRA RATLIFF Rep #: [id number] : 1980 34 From: Naldo Schaeffer MD [...] problems, contact your doctor. Call [facility] ([phone]) or report to the closest Emergency Room. Call 911 if necessary. 02/01/15 0535 <Electronically signed by Abdullahi Schaeffer MD> Date Naldo Schaeffer MD Cosigner Signature (If Indicated): Date CC: Michelle Reaves MD 18-Nov-2014 Initial Evaluation - OT Result: Comments: See Note; NOTES: [facility] [address] [place] [address]. [address] [place] [address] Fax REHABILITATION SERV ICES INITIAL EVALUATION MR#: [id number] Acct: [id number] Name: SANDRA RATLIFF Rep #: [id number] : 1980 34 From: Bernarda De La Vega Referring Dr.: Ofe Jay DO Status: REG RCR Insu elly: [facility] Date: DATE OF SERVICE: PHYSICIAN: Ofe Jay [...] Right ulnar deviation 10, left 30. Right belt cleaner strength is 35 pounds, left is 70 [...] The patient will demonstrate increase in right belt cleaner strength to 65 pounds or greater to [...] De La Vega OTR/L T: EMILY JOB: [id number] <Electronically signed by Bernarda De La Vega & #62; 11/18/14 0927 CC: Signed For Medicare only, by signing this I certify the plan of care. Physicians Signature Date 04-Nov-2014 Wrist min 3 Views Result: Comments: See Note; NOTES: [facility] Imaging Services [address] [facility] [address] Radiology Report MR#: [id number] Acct: [id number] Name: SANDRA RATLIFF Rep #: [id number] : 1980 F 34 From: Catrachito Wren MD PCP: Michelle Reaves MD Status: REG CLI Study: Wrist min 3 Views Date of Exam: 11/04/14 Exam# [id number] Ordering Dr: Ofe Jay DO STUDY: X-RA [...] MD at 14:57 EDT , Service support [phone], RAD/Wrist min 3 Views IMPRESSION: Normal x-ray examination of the wrist. Electronically Signed: Catrachito Wren MD at 14:57 EDT , Service support [phone], Fax CC: Ofe Jay DO; Michelle Reaves MD Internal Security Manager: Signed Immunization Name Dates Details Tdap (7 years and up) on: 30-Jun-2017 Comments: [facility] Family History Unknown Family Member Name Dates Details Brother 1 Comments: healthy Status: Active Father Comments: hx. [place] (age 50) CABGx3, heart disease Status: Active maternal aunt breast cancer 50 yo Status: Active maternal aunt pancreatic cancer 49 yo Status: Active Maternal Grandfather Comments: Alzheimer's , prostate cancer in [place], borderline diabetic. Status: Active Maternal Grandmother Comments: hx. angioplasty living Status: Active Mother Comments: ESRD, Gabriel's, hx. kidney transplant, osteoporosis, hypothyroid Status: Active Paternal Grandfather Comments: black lung disease Status: Active Paternal Grandmother Comments: heart disease, age 69 Status: Active Sister 1 Comments: healthy Status: Active Social History Name Dates Details Alcohol Use: Occasional alcohol use. 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 [phone] Status: Active Exercise History: Exercises occasionally. Comments: get 4000 steps a day Status: Active Living Situation: Lives with spouse. Comments: spouse nayeli shah dtr Status: Active No Drug Use Status: Active Non Smoker/No Tobacco Use Status: Active Tobacco use: Never smoker. Status: Active Tobacco use: Never smoker. Status: Inactive Smoking Status Name Dates Details Never smoker Vital Signs Date Test Result Details :32 Weight 329 lb Height 69 in Body Mass Index Calculated 48.58 kg/m2 Body Surface Area Calculated 2.55 m2 :07 Temperature 98 f Comments: Method: Temporal [...] kg/m2 Body Surface Area Calculated 2.52 m2 7-Ndj-348601:12 BP Systolic 138 mm[Hg] Comments: Patient Position: [...] kg/m2 Body Surface Area Calculated 2.52 m2 57-Xgm-060464:01 Temperature 97 f Comments: Method: Temporal Pulse [...] kg/m2 Body Surface Area Calculated 2.38 m2 53-Gmn-471883:00 Temperature 98.2 f Pulse 116 /min Comments: [...] in this mix are: Blue mussel Fish Dover Shrimp Tuna EGG, WHOLE <0.10 kU/L (Normal) CHOCOLATE <0.10 kU/L (Normal) Comments: Performed at: [facility] [id number] Director: Davide Jordan MD, Phone: [phone] BEEF <0.10 kU/L (Normal) PORK <0.10 kU/L (Normal) SOYBEAN <0.10 kU/L (Normal) PEANUT <0.10 kU/L (Normal) CORN <0.10 kU/L (Normal) WHEAT <0.10 kU/L (Normal) MILK (COW) <0.10 kU/L (Normal) :43 CBC-Complete Blood Cnt No Diff Comments: [facility] Jvaepzjyjq2594 [facility]. [place], [place], [id number] ; fu 10-5 DB MPV 10.0 fL [...] Range: 4.4-11.0 :43 Comprehensive Metabolic Profil Comments: [facility] Bosnwyvnke7120 [facility]. [place], [place], [address] GAP 10 (Normal) Range: 5-15 CO2 27.0 [...] Comments: Please note revised GLUCOSE reference range tdayoqwxq09/02/2018. :43 T4 Free Direct Comments: [facility] [address] [place], [place], [address] T4 FREE DIRECT 1.04 ng/dL (Normal) Range: 0.76-1.46 :43 Thyroid Stim Hormone (TSH) Comments: [facility] [address] [place], [place], [address] TSH 2.11 {uIU/mL} (Normal) Range: 0.358-3.74 24-Vwg-72242:43 Vitamin D,25 Hydroxy Comments: [facility] St[address]abadeg[address] [place], [address] Vitamin D 25-OH 30.2 ng/mL (Normal) Range: 29.95-100.01 Comments: Vitamin D 25(OH) Status Range Deficiency <20 ng/mL (50nmol/L) Insuffciency 20 - 30 ng/mL (50 - 75 nmol/L) Sufficiency 30 - 100 ng/mL (75 - 250 nmol/L) Toxicity >100 ng/mL (>250 nmol/L) 0-Mlw-520890:16 NuSwab Vaginitis Plus Comments: PATIENT NOT FASTINGPERFORMED BY: LabeVoter[address] [id number] Information: SRC:CE (trich/BV/GC/linda W/O Herpes) (05539) Neisseria gonorrhoeae, Negative (Normal) ROBERT Chlamydia trachomatis, Negative (Normal) ROBERT Trich vag by ROBERT Negative (Normal) Mercedes glabrata, ROBERT Negative (Normal) Comments: This test was developed and its performance characteristics determinedby [employer]. It has not been cleared or approved [...] was developed and its performance characteristicsdetermined by [employer]. It has not been cleared or approvedby the Food and Drug Administration. The FDA has determinedthat such clearance or approval is not necessary. BVAB 2 Low - 0 {Score} (Normal) Atopobium vaginae Low - 0 {Score} (Normal) 9-Exb-693126:16 HPV automatic Comments: Source.............Cervix;EndocervixNo. of containers..01 ThinPrep VialPATIENT NOT FASTINGPERFORMED BY: [facility] [place] [id number] BY: =G [facility] [place] ([address]) [place] [id number] Information: [id number] HPV, high-risk Negative Comments: This high-risk HPV [...] metaplasticcells (endocervical com ponent) are present.Z01.419Nathaly Reese Manager Work (ASCP) 09-May-20178:25 URINE AUTUMN CULTURE-IDENTIFICATN Comments: PATIENT NOT FASTINGPERFORMED BY: CB [facility] Jdcxlj6909 [facility] [id number] (52489) Antimicrobial MIHEAD (Normal) Comments: S = Susceptible; [...] Urine Final report Culture,Comprehensive (Abnormal) :25 URINALYSIS (67409) Comments: PATIENT NOT FASTINGPERFORMED BY: HowAboutWeSouthern Ocean Medical CenterItobvg3581 [facility] [id number] Information: SRC:UC Microscopic Examination MICNIP (Normal) Comments: Microscopic not indicated and not performed. Nitrite, Urine Negative (Normal) Urobilinogen,Semi-Qn 0.2 mg/dL (Normal) Range: 0.2-1.0 Bilirubin Negative (Normal) Occult Blood Negative (Normal) Ketones Negative (Normal) Glucose Negative (Normal) Protein Negative (Normal) WBC Esterase Negative (Normal) Appearance Clear (Normal) Urine-Color Yellow (Normal) pH 5.5 (Normal) Range: 5.0-7.5 Specific [place] 1.022 (Normal) Range: 1.005-1.030 :35 CBC, Platelets & Auto Diff Comments: PATIENT NOT FASTINGPERFORMED BY: HowAboutWe Rzrfkz3545 [facility] [id number] Information: NURSE DRAW (55121) Immature Grans (Abs) 0.0 {x10E3/uL} (Normal) Range: [...] Panel, Comprehensive Comments: PATIENT NOT FASTINGPERFORMED BY: LabCoSouthern Ocean Medical CenterFbinsv1808 [facility] [id number] (46690) ALT (SGPT) 18 [iU]/L (Normal) Range: 0-32 [...] (Abnormal) Range: 65-99 :35 T3, FREE (TRIDOTHYRONINE) (94904) Comments: PATIENT NOT FASTINGPERFORMED BY: [facility]6370 [facility] [id number] Triiodothyronine,Free,Serum 3.7 pg/mL (Normal) Range: 2.0-4.4 :35 T4, FREE (THYROXINE) (58336) Comments: PATIENT NOT FASTINGPERFORMED BY: [facility]6370 [facility] [id number] T4,Free(Direct) 1.07 ng/dL (Normal) Range: 0.82-1.77 :15 HgA1C , Office (27659) HgA1C , Office 5.5 % (Normal) Range: 4.6 - 7.1 :33 METABOLIC PANEL, Comments: PATIENT WAS FASTINGPERFORMED BY: [address] [id number] BY: [facility]6370 [facility] [id number] COMPREHENSIVE (83563) ALT (SGPT) 21 [iU]/L (Normal) Range: 0-32 [...] Glucose, Serum 88 mg/dL (Normal) Range: 65-99 42-Ihg-199905:33 LIPOPROTEIN, BLD, BY NMR Comments: PATIENT WAS FASTINGPERFORMED BY: BN [facility] Fqvjasatlv1123 [facility][1] [id number] BY: CB [facility] Uwenyl4702 [facility] [id number]; fu 8-1 db (15744) LP-IR Score 72 (Abnormal) Comments: INSULIN RESISTANCE MARKER <--Insulin Sensitive Insulin Resistant--> Percentile in Reference PopulationInsulin Resistance ScoreLP-IR Score Low 25th 50th 75th High <27 27 45 63 >63LP-IR Score is inaccurate if patient is non-fasting. .The LP-IR score is a laboratory developed i [facility] that has beenassociated with insulin [...] 1600 - 2000 Very High > 2000 27-Lxp-252638:33 CBC with auto diff Comments: PATIENT WAS FASTINGPERFORMED BY: BN [facility] [address] [id number] BY: CB [facility] Fcflxm3504 [facility] [id number] (39541) Immature Grans (Abs) 0.0 {x10E3/uL} (Normal) Range: [...] 3.77-5.28 WBC 9.2 {x10E3/uL} (Normal) Range: 3.4-10.8 54-Uzx-979374:33 CALCIFIDIOL (49068) VIT D Comments: PATIENT WAS FASTINGPERFORMED BY: BN [facility] Pzywtojepa4103 [facility][1] [id number] BY: CB [facility] Tyiwcp3110 [facility] [id number] Vitamin D, 25-Hydroxy 51.8 ng/mL (Normal) Range: 30.0-100.0 Comments: Vitamin D deficiency has been defined by the [place] ofMedicine and an Endocrine Society practice guideline as alevel of serum 25-OH vitamin D less than 20 ng/mL (1,2).The Endocrine Society went on to further define vitamin Dinsufficiency as a level between 21 and 29 ng/mL (2).1. IOM ([place] of Medicine). 2010. Dietary reference intakes for calcium and D. [place]: The National Academies Press.2. Clari MF, Jose LEES, Ash NETTLES, et al. Evaluation, treatment, and prevention of vitamin D deficiency: an Endocrine Society clinical practice guideline. JCEM. 2010; 96(7):1911-30. 75-Rmn-90701:38 AUTUMN CULTURE-OTHER (48923) Comments: PATIENT NOT FASTINGPERFORMED BY: [facility] Evieop6745 [facility] [id number] Information: SRC:TH Result 1 RRF (Normal) Comments: Routine respiratory juan Upper Respiratory Culture Final report (Normal) 28-Rin-66287:32 AUTUMN CULTURE-OTHER (44422) Comments: PATIENT NOT FASTINGPERFORMED BY: [facility] Zewzkx7440 [facility] [id number] Information: SRC:TH Result 1 RRF (Normal) Comments: Routine respiratory juan Upper Respiratory Culture Final report (Normal) 95-Ltj-497273:35 Rapid Strep Test, Office (43422) Rapid Strep Test, Office Negative (Normal) 65-Han-359642:39 CBC W/Diff, Automated Comments: [facility] Qxbxnqnqnf50[address] [place], [address] Absolute Lymph 3.19 {X10_3/ul} (Normal) Range: 0.83-4.51 [...] 4.2-5.4 WBC 9.6 K/mm3 (Normal) Range: 4.4-11.0 45-Zzc-932687:39 Prothrombin Time w/INR Comments: [facility] Ahfxpoxpwi[address] [place], [place], [address] INR 1.0 (Normal) PROTIME 12.9 s (Normal) Range: 11.7-14.9 08-Nfy-079459:58 CBC, Platelets & Auto Comments: PATIENT NOT FASTINGPERFORMED BY: [facility] Ifcdno4500 [facility] [id number] Information: [id number],[id number] Diff (17096) Immature Grans (Abs) 0.0 {x10E3/uL} (Normal) Range: [...] (Normal) Range: 3.4-10.8 :58 T3, FREE (TRIDOTHYRONINE) (56619) Comments: PATIENT NOT FASTINGPERFORMED BY: [place] 4105170 [facility] [id number] Triiodothyronine,Free,Serum 3.2 pg/mL (Normal) Range: 2.0-4.4 :58 T4, FREE (THYROXINE) (30127) Comments: PATIENT NOT FASTINGPERFORMED BY: [address] [id number] T4,Free(Direct) 1.07 ng/dL (Normal) Range: 0.82-1.77 :58 TSH (27677) Comments: PATIENT NOT FASTINGPERFORMED BY: [place] 4105170 [facility] [id number] TSH 2.830 {uIU/mL} (Normal) Range: 0.450-4.500 :58 HELICOBACTER PYLORI ANTIBODY Comments: PATIENT NOT FASTINGPERFORMED BY: [place] 4105170 [facility] [id number] (55959) H. pylori, IgG Abs <0.9 U/mL (Normal) Range: 0.0-0.8 Comments: Negative <0.9 Indeterminate 0.9 - 1.0 Positive >1.0 :46 Testosterone, Free+Total Comments: PATIENT NOT FASTINGPERFORMED BY: [address] [id number] BY: [place] 4105170 [facility] [id number] Information: 235192,[id number] LC/MS Free Testosterone(Direct) 1.5 pg/mL Range: 0.0-4.2 (Normal) Testosterone, Total, LC/MS 11.8 ng/dL Range: 10.0-55.0 (Normal) Comments: This test was developed and its performance characteristicsdetermined by [employer]. It has not been cleared or approvedby the Food and Drug Administration. Written Authorization WAR (Normal) Comments: PATIENT NOT FASTINGPERFORMED BY: [facility]1447 [facility][1] [id number] BY: [facility] Xopnie9505 [facility] [id number] 610:46 Comments: Written Authorization Received.Authorization received from PHILLIP LEIGH LPN [id number] by Chichi Flores 4-Nqn-483140:46 CALCIFIDIOL (15078) VIT D 25 Comments: PATIENT NOT FASTINGPERFORMED BY: [facility]6370 [facility] [id number] Vitamin D, 25-Hydroxy 41.9 ng/mL (Normal) Range: 30.0-100.0 Comments: Vitamin D deficiency has been defined by the [place] of[place]icine and an Endocrine Society practice guideline as alevel of serum 25-OH vitamin D less than 20 ng/mL (1,2).The Endocrine Society went on to further define vitamin Dinsufficiency as a level between 21 and 29 ng/mL (2).1. IOM ([place] of Medicine). 2010. Dietary reference intakes for calcium and D. [place]: The National Academies Press.2. Clari MF, Jose [place], Ash NETTLES, et al. Evaluation, treatment, and prevention of vitamin D deficiency: an Endocrine Society clinical practice guideline. JCEM. 2010; 96(7):1911-30. 6-Boq-862014:46 Metabolic Panel, Comments: PATIENT NOT FASTINGPERFORMED BY: [facility] Epnadg3420 [facility] [id number] Information: 305539,[id number] Comprehensive (64268) ALT (SGPT) 21 [iU]/L (Normal) Range: 0-32 [...] Glucose, Serum 81 mg/dL (Normal) Range: 65-99 72-Fde-876805:16 Cortisol,Urinary Free 24- Comments: PATIENT NOT FASTINGPERFORMED BY: MARIANNE [facility] [address] [id number] Information: [id number] VOLUME 1800; fu 8-18 Hour Urine (58145) Cortisol,F,ug/24hr,U 18 {ug/24_hr} (Normal) Range: 0-50 Comments: This test was developed and its performance characteristicsdetermined by [facility]. It has not been cleared or approvedby the Food and Drug Administration. Cortisol,F,ug/L,U 10 ug/L (Normal) 8-Zma-693701:46 HGB A1C (58065) Comments: PATIENT NOT FASTINGPERFORMED BY: INA [facility] Zivyop9582 [facility] [id number] Hemoglobin A1c 5.5 % (Normal) Range: 4.8-5.6 Comments: . Pre-diabetes: 5.7 - 6.4 Diabetes: >6.4 Glycemic control for adults with diabetes: <7.0 08-Qgi-315468:13 SEROTONIN (92646) Comments: PATIENT NOT FASTINGPERFORMED BY: [address] [id number] Information: [id number] Serotonin, Serum 10 ng/mL (Normal) Range: 0-420 :42 TSH (THYROID STIMULATING Comments: PATIENT NOT FASTINGPERFORMED BY: [address] [id number] HORMONE) (46927) TSH 1.560 {uIU/mL} (Normal) Range: 0.450-4.500 :42 CBC, PLATELETS & MANUAL Comments: PATIENT NOT FASTINGPERFORMED BY: [facility]6370 [facility] [id number] Information: [id number] DIFF (55396) Immature Grans (Abs) 0.0 {x10E3/uL} (Normal) Range: [...] 3.77-5.28 WBC 8.2 {x10E3/uL} (Normal) Range: 3.4-10.8 :42 ESR-F (SED RATE ERYTHROCYTE - Comments: PATIENT NOT FASTINGPERFORMED BY: [facility]CoSouthern Ocean [facility] CenterCavsgn3755 [facility] [id number] FEMALE) (45722) Sedimentation Rate-Westergren 25 mm/h (Normal) Range: 0-32 :42 PREALBUMIN (21825) Comments: PATIENT NOT FASTINGPERFORMED BY: [facility]CoSouthern Ocean [facility] CenterUptkrn2724 [facility] [id number] Prealbumin 28 mg/dL (Normal) Range: 9-31 Comments: [...] - 36 >70 years 9 - 32 36-Ssd-510847:45 Urinalysis, Complete Comments: Order Date: 11/17/15How was Urine Obtained? CLEANER FURNITURE TO [facility] [address]zzcsnl[address] [place], [place], [address] MUCUS, URINE 0 SEEN {/hpf} (Normal) BACTERIA [...] CLARITY Sl. Cloudy (Normal) COLOR Yellow (Normal) :08 CBC W/Diff, Automated Comments: [facility] Hygqxhnbyv[address] [place], [place], [address] Absolute Lymph 1.81 {X10_3/ul} (Normal) Range: 0.83-4.51 [...] Range: 4.4-11.0 :08 Comprehensive Metabolic Profil Comments: [facility] Qavnncmham[address] [place], [place], [address] GAP 6 (Normal) Range: 5-15 CO2 27.0 [...] mg/dL (Normal) Range: 70-110 :08 Lipase Comments: [facility] [address] [place], [place], [address] LIPASE 160 U/L (Normal) Range: 73-393 :08 ,Serum,hCG Quali. Comments: [facility] [address]vs[address] [place], [place], [address] HCGSQUAL NEGATIVE {Negative} Range: 0-9 Nonpreg (Normal) HCG Qual triggr < 1 m[iU]/mL (Normal) 4-May-28857:00 LIPOMA (SOFT TISSUE) See Note (Normal) Comments: [facility] [address] [place], [address] Comments: Patient: SANDRA RATLIFF : 1980 (35/F) Acct Num: [id number] Phys: Yohan HARGROVE,Vi Unit Num: [id number] Loc: LAB[facility] Specimen: [id number] Received: 11/09/151842 Spec Type: LIPOMA TISSUES TISSUES: GROSS DESCRIPTION Received is one container labeled with the patient name and designated abdominal lesion. The specimen consists of multiple irregular fragm ents of yellow fatty tissue that in aggregate measure 4 x 3 x 1 cm. Grain Thresher portions are submitted in one cassette. / AM:shubham 11/10/15 TC:1 CPT:60056 HEADER OPERATION: Excision upper left a bdominal wall lesion PRE-OP DIAGNOSIS: Upper left abdominal wall lesion TISSUE SUBMITTED: Lipoma of abdominal wall MICROSCOPIC DESCRIPTION Slides are reviewed. MICROSCOPIC DIAGNOSIS Lipo ma of abdominal wall, excision: Mature adipose tissue, consistent with lipoma. SJ:shubham 11/11/15 Signed Yimi Zapata 11/11/15 <signature on file> 0-Rzv-070568:50 Culture, Blood (WB) Comments: [facility] [address] [place], [place], [address] CUB See Note (Normal) Comments: BCNo growth in 5 days. 8-Hsw-663383:50 Culture, Blood (WB) Comments: [facility] T[address]qhzi[address] [place], [place], [address] CUB See Note (Normal) Comments: BCNo growth in 5 days. :08 Urinalysis, Office (82424) UA - LEUKOCYTE ESTERASE Negative (Normal) UA - NITRITE Negative (Normal) URINE UROBILINGN DWAYNE TIMED Normal mg/dL (Normal) UA - PROTEIN 30 mg/dL (Normal) UA - PH 6 (Abnormal) UA - BLOOD Negative (Normal) UA - SPECIFIC GRAVITY 1.020 (Normal) UA - KETONES 15 ug/dL (Abnormal) UA - BILIRUBIN Moderate (Normal) UA - GLUCOSE Negative (Normal) 44-Jbn-275151:10 Microscopic Examination Comments: PATIENT NOT FASTINGPERFORMED BY: HowAboutWeSouthern Ocean Medical CenterPuiuyo0027 [facility] [id number] Bacteria Few (Normal) Mucus Threads Present (Normal) Cast Type Hyaline casts (Normal) Casts Present {/lpf} (Abnormal) Epithelial Cells (non renal) 0-10 {/hpf} (Normal) Range: 0 - 10 RBC 0-2 {/hpf} (Normal) Range: 0 - 2 WBC 6-10 {/hpf} (Abnormal) Range: 0 - 5 35-Yyz-606925:51 ANCA Panel Comments: PATIENT NOT FASTINGPERFORMED BY: InneractiveChrist[place] [address] [facility][1] [id number] BY: InneractiveAriel [place] 0224870 [facility] [id number] Information: [id number] Atypical pANCA <1:20 {titer} Comments: The atypical [...] follow up testing ofpositive sera with both ME-3 and MPO-ANCA enzyme immunoassays. Asmany as 5% serum samp les are positive only by EIA.Ref. AM J Clin Pathol 1999;111:507-513. Cytoplasmic (C-ANCA) <1:20 {titer} (Normal) Antiproteinase 3 (ME-3) Abs <3.5 U/mL Range: 0.0-3.5 (Normal) Antimyeloperoxidase (MPO) <9.0 U/mL Range: 0.0-9.0 Abs (Normal) 24-Feb-201 Written Authorization WAR (Normal) Comments: PATIENT NOT FASTINGPERFORMED BY: [facility]1447 [facility][1] [id number] BY: [facility]6370 [facility] [id number] 612:51 Comments: Written Authorization Received.Authorization received from ERIKA RUANO LPN [id number] by Shalini Ramos 86-Dea-258813:51 CBC WITH MANUAL DIFF Comments: PATIENT NOT FASTINGPERFORMED BY: [facility]Core[facility]6370 [facility] [id number] Information: [id number],[id number] (53592) Immature Grans (Abs) 0.0 {x10E3/uL} (Normal) Range: [...] 3.77-5.28 WBC 7.8 {x10E3/uL} (Normal) Range: 3.4-10.8 61-Cxu-142499:10 URINE AUTUMN CULTURE-IDENTIFICATN Comments: PATIENT NOT FASTINGPERFORMED BY: [place] 4105170 [facility] [id number] (96636) Result 1 NG36 (Normal) Comments: No growth in 36 - 48 hours. Urine Culture,Comprehensive Final report (Normal) 33-Lnq-284862:51 COMPLEMENT C4 (81158) Comments: PATIENT NOT FASTINGPERFORMED BY: [place] 4105170 [facility] [id number] Complement C4, Serum 50 mg/dL (Abnormal) Range: 14-44 94-Ouk-099172:51 COMPLEMENT C3 (17483) Comments: PATIENT NOT FASTINGPERFORMED BY: [address] [id number] Complement C3, Serum 204 mg/dL (Abnormal) Range: 82-167 49-Ldi-579634:58 COMPLEMENT, TOTAL (CH50) Comments: PATIENT NOT FASTINGPERFORMED BY: [address] [id number] Information: [id number] (93923) Complement, Total (CH50) >60 U/mL (Abnormal) Range: 42-60 Comments: Please note reference interval change 08-Zgz-157691:10 URINALYSIS (49838) Comments: PATIENT NOT FASTINGPERFORMED BY: [address] [id number] Information: [id number] Microscopic Examination See below: (Normal) Comments: Microscopic was indicated and was performed. Appearance Cloudy (Abnormal) Urine-Color [place] (Normal) Comments: Unable to read or assay due to color interference. Specific [place] 1.023 (Normal) Range: 1.005-1.030 67-Lva-722656:51 HCG Qualitative, Serum (73247) Comments: PATIENT NOT FASTINGPERFORMED BY: [place] 4105170 [facility] [id number] hCG,Beta Subunit,Qual,Serum Negative m[iU]/mL (Normal) :51 serum free light chains Comments: PATIENT NOT FASTINGPERFORMED BY: HowAboutWe Zblvql2816 [facility] [id number] (33376) [place]/Lambda Ratio,S 1.97 (Abnormal) Range: 0.26-1.65 Free Lambda Lt Chains,S 16.13 mg/L (Normal) Range: 5.71-26.30 Free [place] Lt Chains,S 31.85 mg/L (Abnormal) Range: 3.30-19.40 38-Akh-416254:51 urine immunofixation (62753) Comments: PATIENT NOT FASTINGPERFORMED BY: HowAboutWe Fttcgn7243 [facility] [id number] IRWIN Interpretation:U UPEIP (Normal) Comments: No monoclonality detected. :51 serum immunofixation (65097) Comments: PATIENT NOT FASTINGPERFORMED BY: HowAboutWe Vlzhxn9045 [facility] [id number] Immunoglobulin M, Qn, Serum 68 mg/dL (Normal) Range: 40-230 Immunoglobulin A, Qn, Serum 192 mg/dL (Normal) Range: 91-414 Immunoglobulin G, Qn, Serum 1229 mg/dL (Normal) Range: 700-1600 Immunofixation Result, Serum IFENOR (Normal) Comments: An apparent normal immunofixation pattern. :51 UPEP (18837) Comments: PATIENT NOT FASTINGPERFORMED BY: HowAboutWeSouthern Ocean Medical CenterMtocyr6710 [facility] [id number] Please note: SPRCS (Normal) Comments: Protein electrophoresis scan will follow via computer, mail, orcourier delivery. M-Rene, % Not Observed % (Normal) Gamma Globulin, U 12.1 % (Normal) Beta Globulin, U 23.3 % (Normal) Oegxm-9-Esvtrtfo, U 28.7 % (Normal) Orkvc-9-Nxpxozom, U 4.1 % (Normal) Albumin, U 31.8 % (Normal) Protein,Total,Urine 42.0 mg/dL (Abnormal) Range: 0.0-15.0 :51 P-ANCA & C-ANCA (ANCA Comments: PATIENT NOT FASTINGPERFORMED BY: [employer]ags Bkieni7311 [facility] [id number] PROFILE) 93322 x2 and 26401 x2 Mitochondrial (M2) Antibody <20.0 {Units} (Normal) Range: 0.0-20.0 Comments: Negative 0.0 - 20.0 Equivocal 20.1 - 24.9 Positive >24.9 . Mitochondrial (M2) Antibodies are found in 90-96% of patients with primary biliary cirrhosis. 97-Wqu-984542:51 C-REACT PROT HIGH SENS(hsCRP) Comments: PATIENT NOT FASTINGPERFORMED BY: [employer] Wikipixel [facility] [id number] (25429) C-Reactive Protein, Cardiac 94.10 mg/L (Abnormal) Range: 0.00-3.00 Comments: Relative Risk for Future Cardiovascular Event Low <1.00 Average 1.00 - 3.00 High >3.00 52-Ygr-528044:32 DNA ANTIBODY-NATV/DBL ST (81722) Comments: PATIENT NOT FASTINGPERFORMED BY: HowAboutWe Vpbqem3617 [facility] [id number] test code 019741 Anti-DNA (DS) Ab Qn <1 {IU/mL} (Normal) Range: 0-9 Comments: Negative <5 Equivocal 5 - 9 Positive >9 94-Amg-003331:32 MICROALBUMIN: CREATININE Comments: PATIENT NOT FASTINGPERFORMED BY: HowAboutWe Gcqmag4127 [facility] [id number] Information: [id number] RATIO (62070) AND (64049) Microalb/Creat Ratio 28.7 {mg/g_creat} (Normal) Range: 0.0-30.0 Microalbumin, Urine 76.1 ug/mL (Abnormal) Range: 0.0-17.0 Creatinine, Urine 265.3 mg/dL (Normal) Range: 16.0-327.0 89-Fdy-219396:32 RPR (RAPID PLASMA REAGIN) Comments: PATIENT NOT FASTINGPERFORMED BY: HowAboutWeSouthern Ocean Medical CenterYcizzv7907 [facility] [id number] (90623) RPR Non Reactive (Normal) 98-Wst-362548:26 Systemic Lupus Profile A Comments: PATIENT NOT FASTINGPERFORMED BY: [facility]6370 [facility] [id number] Information: [id number],[id number] Anti-DNA (DS) Ab Qn <1 {IU/mL} Range: 0-9 (Normal) Comments: Negative <5 Equivocal 5 - 9 Positive >9 Sjogren's Anti-SS-B 0.4 {AI} (Normal) Range: 0.0-0.9 Sjogren's Anti-SS-A <0.2 {AI} (Normal) Range: 0.0-0.9 Antichromatin Antibodies 0.3 {AI} (Normal) Range: 0.0-0.9 RA Latex Turbid. 13.0 {IU/mL} Range: 0.0-13.9 (Normal) Tariq Antibodies <0.2 {AI} (Normal) Range: 0.0-0.9 MANAGER MANAGING Antibodies 2.7 {AI} Range: 0.0-0.9 (Abnormal) Written Authorization WAR (Normal) Comments: PATIENT NOT FASTINGPERFORMED BY: [facility]6370 [facility] [id number] 0:26 Comments: Written Authorization Received.Authorization received from MICHELLE REAVES MD [id number] by Devi Biswas 52-Mgl-067167:26 EB ANTIBODY VIRAL CAPSID Comments: PATIENT NOT FASTINGPERFORMED BY: [facility]6370 [facility] [id number] (75192) X2 Interpretation: SPRCS (Normal) Comments: EBV Interpretation [...] <36.0 Equivocal 36.0 - 43.9 Positive >43.9 71-Jsl-791858:26 CALCIFIDIOL (01284) VIT D 25 Comments: PATIENT NOT FASTINGPERFORMED BY: HowAboutWe Pblehv3329 [facility] [id number] Vitamin D, 25-Hydroxy 48.4 ng/mL (Normal) Range: 30.0-100.0 Comments: Vitamin D deficiency has been defined by the [place] ofTri[facility] Hospitalcine and an Endocrine Society practice guideline as alevel of serum 25-OH vitamin D less than 20 ng/mL (1,2).The Endocrine Society went on to further define vitamin Dinsufficiency as a level between 21 and 29 ng/mL (2).1. IOM ([place] of Medicine). 2010. Dietary reference intakes for calcium and D. [place]: The National Academies Press.2. Clari MF, Jose NC, Ash NETTLES, et al. Evaluation, treatment, and prevention of vitamin D deficiency: an Endocrine Society clinical practice guideline. JCEM. 2010; 96(7):1911-30. 13-Gjd-095407:26 Folate (38072) Comments: PATIENT NOT FASTINGPERFORMED BY: [facility]6370 [facility] [id number] Folate (Folic Acid), Serum 8.4 ng/mL (Normal) Comments: A serum folate concentration of less than 3.1 ng/mL isconsidered to represent clinical deficiency. 39-Uoo-563470:26 VITAMIN B-12 (CYANOCOBALAMIN) Comments: PATIENT NOT FASTINGPERFORMED BY: [facility]6370 [facility] [id number] (10225) Vitamin B12 280 pg/mL (Normal) Range: 211-946 49-Khz-294901:26 TSH (58606) Comments: PATIENT NOT FASTINGPERFORMED BY: [facility] Cwkvur2255 [facility] [id number] TSH 1.730 {uIU/mL} (Normal) Range: 0.450-4.500 19-Rvx-898026:26 SED RATE ERYTHROCYTE (08286) Comments: PATIENT NOT FASTINGPERFORMED BY: [facility] Vwvnip2108 [facility] [id number] Sedimentation Rate-Westergren 48 mm/h (Abnormal) Range: 0-32 84-Dti-768341:26 RHEUMATOID FACTOR-QUANT (30233) Comments: PATIENT NOT FASTINGPERFORMED BY: [facility] Tjmmtq5990 [facility] [id number] RA Latex Turbid. 13.3 {IU/mL} (Normal) Range: 0.0-13.9 56-Moe-456572:26 METABOLIC PANEL, Comments: PATIENT NOT FASTINGPERFORMED BY: [facility]6370 [facility] [id number] Information: [id number] COMPREHENSIVE (97871) ALT (SGPT) 21 [iU]/L (Normal) Range: 0-32 [...] Glucose, Serum 101 mg/dL (Abnormal) Range: 65-99 :26 C-REACTIVE PROTEIN (94280) Comments: PATIENT NOT FASTINGPERFORMED BY: HowAboutWeMiners[facility] CenterNjpfka1653 [facility] [id number] C-Reactive Protein, Quant 157.4 mg/L (Abnormal) Range: 0.0-4.9 :26 CBC (AUTO) (67267) Comments: PATIENT NOT FASTINGPERFORMED BY: [facility]WeSouthern [facility] CenterNhqswi8499 [facility] [id number] Platelets 275 {x10E3/uL} (Normal) Range: 150-379 RDW 13.4 % (Normal) Range: 12.3-15.4 MCHC 33.9 g/dL (Normal) Range: 31.5-35.7 MCH 29.6 pg (Normal) Range: 26.6-33.0 MCV 87 fL (Normal) Range: 79-97 Hematocrit 39.2 % (Normal) Range: 34.0-46.6 Hemoglobin 13.3 g/dL (Normal) Range: 11.1-15.9 RBC 4.50 {x10E6/uL} (Normal) Range: 3.77-5.28 WBC 13.8 {x10E3/uL} (Abnormal) Range: 3.4-10.8 :26 KWAN (ANTINUCLEAR ANTIBODY) Comments: PATIENT NOT FASTINGPERFORMED BY: [facility]AboutWeSouthern [facility] CenterXqhlhm9324 [facility] [id number] (70782) KWAN Direct Positive (Abnormal) 47-Qnp-041407:21 Sed Rate Erythrocyte (31866) Comments: PATIENT NOT FASTINGPERFORMED BY: [employer] Lyyckc2616 [facility] [id number] Sedimentation Rate-Westergren 20 mm/h (Normal) Range: 0-32 50-Urk-583485:21 Metabolic Panel, Comprehensive Comments: copy to Dr. sanchez; PATIENT NOT FASTINGPERFORMED BY: [employer]6370 [facility] [id number] (23709) ALT (SGPT) 23 [iU]/L (Normal) Range: 0-32 [...] Glucose, Serum 112 mg/dL (Abnormal) Range: 65-99 94-Zub-595158:21 CBC, Platelets & Auto Comments: PATIENT NOT FASTINGPERFORMED BY: [employer]70 [facility] [id number] Information: [id number] Diff (10395) Immature Grans (Abs) 0.0 {x10E3/uL} (Normal) Range: [...] 3.77-5.28 WBC 11.0 {x10E3/uL} (Abnormal) Range: 3.4-10.8 79-Xny-918702:21 Lipase (00844) Comments: PATIENT NOT FASTINGPERFORMED BY: [facility] Cyqiaw7255 [facility] [id number] Lipase, Serum 33 U/L (Normal) Range: 0-59 19-Alb-688190:23 GALLBLADDER See Note (Normal) Comments: Test performed at:[facility] [address] [place], [place] [address] Comments: Patient: SANDRA RATLIFF : 1980 (34/F) Acct Num: [id number] Phys: Yohan HARGROVE,Vi Unit Num: [id number] [place] [facility] [place]: [id number] Received: 02/02/15 154 Spec Type: GALL BLADDE TISSUES TISSUES: CULTURE [...] average thickness andis free of mass lesions. Grain Thresher sections of the gallbladder and the cystic duct are submitted in one cassette. / AM: 02/03/15 TC:3 CPT: 8 8304 HEADER OPERATION: Lap, cholecystectomy PRE-OP DIAGNOSIS: Calculus of gallbladder with acute cholecystitis TISSUE SUBMITTED: Gallbladder MICROSCOPIC DESCRIPTION Slides are reviewed. MICROSCOPIC DIAGNOSIS Gallbladder, cholecystectomy: Chronic cholecystitis and cholelithiasis. AM: 02/04/15 Signed [address] [facility] 02/04/15 <signature on file> 54-Rfp-067214:10 ,Urine Comments: Test performed at:[facility] Vgrmgzahmk74[address] [facility] [address] [place], [place] [address] ; ordered by another doctor HCGUQUAL Negative {Negative} (Normal) Comments: Very dilute urine specimens, as indicated by a low specificgravity, may not contain sales representative consultant levels of hCG.If is still suspected, a first morning urinespecimen should be collected 48 hours later and tested. :45 Basic Metabolic Profile (BMP) Comments: Test performed at:[facility] I[address]jbfctob[address] [facility] [place] [address] GAP 10 (Normal) Range: 5-15 CO2 26.0 [...] Comments: Please note revised CREATININE reference range taqugyccr42/22/2015. BUN 13 mg/dL (Normal) Range: 7-18 GLU 112 mg/dL (Abnormal) Range: 70-110 Comments: Fasting Glucose result from 110 to <126 mg/dLsuggests IMPAIRED HOMEOSTASIS per A.D.A. criteria. 95-Pgz-52161:45 CBC W/Diff, Automated Comments: Test performed at:[facility] [address] [place] [address] Absolute Lymph 4.26 {X10_3/ul} (Normal) [...] Range: 4.4-11.0 :45 Lipase Comments: Test performed at:[facility] [address]wdqium[address] [place], [place] [address] LIPASE 136 U/L (Normal) Range: 73-393 :45 Liver Profile Comments: Test performed at:[facility] [address] [place] [address] D BILI < 0.05 mg/dL [...] 02/01/15How was Urine Obtained? CLEAN CATCHTest performed at:[facility] [address]bcb[address] [place] [address] HCGUQUAL Negative {Negative} (Normal) Comments: Very dilute urine specimens, as indicated by a low specificgravity, may not contain sales representative consultant levels of hCG.If is still suspected, a first morning urinespecimen should be collected 48 hours later and tested. :45 Urinalysis, Complete Comments: Order Date: 02/01/15How was Urine Obtained? CLEAN CATCHTest performed at:[facility] [address] [place] [address] MUCUS, URINE 0 SEEN {/hpf} (Normal) BACTERIA [...] Clear (Normal) COLOR Yellow (Normal) :45 CALCIFIDIOL (19280) VIT D 25 Comments: PATIENT NOT FASTINGPERFORMED BY: LabCoSouthern Ocean Medical CenterDizkbb7707 [facility] [id number] Vitamin D, 25-Hydroxy 42.1 ng/mL (Normal) Range: 30.0-100.0 Comments: Vitamin D deficiency has been defined by the [place] of[place]icine and an Endocrine Society practice guideline as alevel of serum 25-OH vitamin D less than 20 ng/mL (1,2).The Endocrine Society went on to further define vitamin Dinsufficiency as a level between 21 and 29 ng/mL (2).1. IOM ([place] of Medicine). 2010. Dietary reference intakes for calcium and D. [place]: The National Academies Press.2. Clari MF, Jose LEES, Ash NETTLES, et al. Evaluation, treatment, and prevention of vitamin D deficiency: an Endocrine Society clinical practice guideline. JCEM. 2010; 96(7):1911-30. :45 Metabolic Panel, Basic Comments: PATIENT NOT FASTINGPERFORMED BY: [place] [id number] [facility] [id number] Information: [id number] (36784) Calcium, Serum 9.6 mg/dL (Normal) Range: 8.7-10.2 [...] Glucose, Serum 100 mg/dL (Abnormal) Range: 65-99 08-Law-562502:50 Rapid Flu (58163 x 2) Influenza A Ag neg (Normal) 08-Sep-20138:29 LIPID PANEL (63403) Comments: PATIENT WAS FASTINGPERFORMED BY: [address] [id number] Information: [id number],[id number] LDL/HDL Ratio 2.6 {ratio_units} (Normal) Range: 0.0-3.2 [...] Metabolic Panel, Comments: PATIENT NOT FASTINGPERFORMED BY: [place] [id number] [facility] [id number] Information: [id number] Comprehensive (52461) ALT (SGPT) 25 [iU]/L (Normal) Range: 0-32 [...] 87 mg/dL (Normal) Range: 65-99 12-Jan-20139:50 CALCIFEDIOL (61326) Comments: PATIENT NOT FASTINGPERFORMED BY: [facility] Xcyioh7185 [place] [id number] Vitamin D, 25-Hydroxy 42.6 ng/mL (Normal) Range: 30.0-100.0 Comments: Vitamin D deficiency has been defined by the [place] of[place]icine and an Endocrine Society practice guideline as alevel of serum 25-OH vitamin D less than 20 ng/mL (1,2).The Endocrine Society went on to further define vitamin Dinsufficiency as a level between 21 and 29 ng/mL (2).1. IOM ([place] of [place]). 2010. Dietary reference intakes for calcium and D. [place]: The National Academies Press.2. Clari MF, Jose [place], Ash NETTLES, et al. Evaluation, treatment, and prevention of vitamin D deficiency: an Endocrine Society clinical practice guideline. JCEM. 2010; 96(7):1911-30. 90-Tik-350673:08 CATU tDOP 108 ug/L (Normal) tDOP24 255 {ug/24_hr} (Normal) Range: 0-510 Comments: TESTING PERFORMED AT [facility]. ORIGINAL REPORT ON FILE IN LAB [...] :08 MISC . (Normal) Comments: TEST RESULT AOGJFU12-Vbdygichuddsxfpfflo, MS 17 [place] Pregnenolone, Serum MS < 10 ng/dL Reference Range: Adults: 53 - 357 TESTING PERFORMED AT [facility]. ORIGINAL REPORT ON FILE IN LAB CONTAINS ADDITIONAL TEST SITE INFORMATION. :08 PROL 10.2 ng/mL (Normal) Range: 4.8-23.3 :08 TESTOF <0.2 pg/mL (Normal) Range: 0.0-2.2 Comments: Performed at: [address] [id number] Director: Davide Jordan MD, Phone: [phone] at: [address] [address]Ymb Director: Andra Reyes MD, Phone: [phone] 18-Nhx-611415:08 VMA tVMA24 3.1 {mg/24_hr} (Normal) Range: 0.0-7.5 [...] 7-18 GLU 92 mg/dL (Normal) Range: 70-110 57-Dja-647158:56 VIT D,25 05301 33.7 ng/mL (Normal) Range: 30.0-100.0 Comments: Vitamin D deficiency has been defined by the [place] of[place] and an Endocrine Society practice guideline as alevel of serum 25-OH vitamin D less than 20 ng/mL (1,2).The Endocrine Society went on to further define vitamin Dinsufficiency as a level between 21 and 29 ng/mL (2).1. IOM ([place] of [place]). 2011. Dietary reference intakes for calcium and D. [place]: The National Academies Press.2. Clari MF, Jose NC, Ash NETTLES, et al. Evaluation, treatment, and prevention of vitamin D deficiency: an Endocrine Society clinical practice guideline. JCEM. 2010; 96(7): 1911-30.Performed at: [address] [id number] Director: Andra Reyes MD, Phone: [phone] 12-Xzb-415516:57 MICROALB:CRE UR MALB:CREAT 25.7 {mg/g_CRE} (Normal) MICROALBUMIN,UR 40.9 mg/L (Normal) UR CREAT 159.1 mg/dL (Normal) 2-Ktc-693722:09 MYOCARD PERF STRESS/REST MULT Radiology Report See Note (Normal) Comments: EXERCISE MYOCARDIAL PERFUSION SCAN YAXHVMPSgeoyw-yqea-ajw with a history of hypertension and abnormal EKG. [id number] mCi of Sestamibi was injected at rest. [...] fraction. Dictated on 03/09/11 1153 by Tamar HARGRVOE,CyrilTranscribed on 03/09/11 1209 by Kaylan CALVIN gn by Tamar HARGROVE,Stephane on 03/10/11 1446 Sign by: Tamar HARGROVE,[place] 2-Cei-157756: VIT D,25 74100 28.7 ng/mL Range: 32.0-100.0 10 (Abnormal) Comments: Recent studies consider the lower limit of 32.0 ng/mL to guy threshold for optimal health.Rakan BOWENS. J Nutr. 2004;135(2):317- 22.Performed at: - Lab[address] [id number]Lab Director: Andra Reyes MD, Phone: [phone] TSH 2.62 {uIU/mL} Range: 0.358-3.74 :41 (Normal) [...] BETA STREPTOCOCCUS :28 Rapid Strep Test, Office (17755) Rapid Strep Test, Office Negative (Normal) :39 HCG QUANT. 18475 m[iU]/mL (Abnormal) :39 ,SERUM HCGSQUAL SeeNote m[iU]/mL [...] of hypertension Planned Observations Food Allergy Profile (98765)Indication: Allergic to food (Renamed from Food allergy) On: 28 Request T4, FREE (THYROXINE) (19533)Indication: Abnormal thyroid blood test On: : Request TSH (92259)Indication: Abnormal thyroid blood test On: :22 Request CALCIFIDIOL (59990) VIT D 25Indication: Vitamin D deficiency, unspecified On: : Request CBC (Auto) (07210)Indication: KWAN positive On: : Request Metabolic Panel, Comprehensive (98104)Indication: KWAN positive On: : Request Thin prep Pap (64685) (no STD testing)Indication: Well woman exam (Renamed from Encounter for well woman exam) On: :13 Request PT (Prothrobim Time) (52143)Indication: Preop examination On: Request CBC WITH MANUAL DIFF (72848)Indication: Preop examination On: Request T4, FREE (THYROXINE) (35910)Indication: Abnormal thyroid blood test On: Request TSH (49085)Indication: Abnormal thyroid blood test On: Request CALCIFIDIOL (36250) VIT D 25Indication: Vitamin D deficiency, unspecified On: Request MICROALBUMIN: CREATININE RATIO (27724) AND (01254)Indication: Proteinuria On: Request METABOLIC PANEL, COMPREHENSIVE (07467)Indication: Antiphospholipid syndrome On: Request CBC with auto diff (15816)Indication: Antiphospholipid syndrome On: Request LIPOPROTEIN, BLD, BY NMR (02290)Indication: Hyperlipidemia, unspecified hyperlipidemia type On: Request MICROALBUMIN: CREATININE RATIO (29623) AND (90310)Indication: Proteinuria On: :10 Request LEUKOCYTE COUNT, FECAL (32251)Indication: Abdominal pain, acute On: 34-Esx-256322:10 Request OVA & PARASITE DIR SMEAR (98872)Indication: Abdominal pain, acute On: : Request Clostridium difficile Toxin A+B, EIA (36327)Indication: Abdominal pain, acute On: 07-Lzx-318819:10 Request AUTUMN CULTURE-STOOL (96830)Indication: Abdominal pain, acute On: 18-Dro-850774:10 Request Rapid Flu (39855 x 2)Indication: Flu-like symptoms On: : Request EB ANTIBODY NUCLR ANTIGN (38354)Indication: Fatigue On: 50-Uum-181039: Request Rapid Flu (59304 x 2)Indication: Fever and chills On: 13-Kvx-355811:00 Request POTASSIUM SERUM (19723)Indication: Hypokalemia On: 7-Gzr-281755:48 Request PROLACTIN (88971)Indication: Amenorrhea On: :56 Request DHEA-S (DEHYDROEPIANDROSTERONE SULFATE) (59956)Indication: Amenorrhea On: :55 Request TESTOSTERONE FREE (15424)Indication: Amenorrhea On: :55 Request 17-HYDROXYPREGNENOLONE (46345)Indication: Amenorrhea On: :52 Request CORTISOL FREE (97195)Indication: Elevated blood-pressure reading without diagnosis of hypertension On: :49 Request METANEPHRINES - URINE (92957)Indication: Elevated blood-pressure reading without diagnosis of hypertension On: :49 Request CATECHOLAMINES TOTAL, URINE (75621)Indication: Elevated blood-pressure reading without diagnosis of hypertension On: :49 Request URINE VMA (07766)Indication: Elevated blood-pressure reading without diagnosis of hypertension On: :49 Request Metabolic Panel, Basic (22822)Indication: Stress reaction On: :29 Request MICROALBUMIN: CREATININE RATIO (43909) AND (96032)Indication: Unspecified Diagnosis On: 56-Zym-001454:18 Request CALCIFEDIOL (82109)Indication: Elevated blood-pressure reading without diagnosis of hypertension On: 69-Egt-971649:14 Request TSH (65026)Indication: Elevated blood-pressure reading without diagnosis of hypertension On: 56-Sso-943052:13 Request METABOLIC PANEL, COMPREHENSIVE (84049)Indication: Nausea On: 90-Yxf-328594:40 Request Lipase (40818)Indication: Nausea On: 54-Syy-742031:40 Request TEST - SERUM QUANTITATIVE (HCG) (35864)Indication: Amenorrhea On: :40 Request Amylase (13646)Indication: Nausea On: 40-Suo-829981:40 Request METABOLIC PANEL, COMPREHENSIVE (51510)Indication: Palpitations On: :47 Request CBC WITH MANUAL DIFF (45323)Indication: Palpitations On: :47 Request TSH (75619)Indication: Palpitations On: 04-Rac-05752:47 Request AUTUMN CULTURE-OTHER (29543)Indication: Acute pharyngitis On: 62-Fhg-97673:28 Request BHCG (HUMAN CHORIONIC GONADOTROPIN - BETA) (69542)Indication: Amenorrhea On: 32-Ccy-604688:22 Request HCG (HUMAN CHORIONIC GONADOTROPIN) (27986)Indication: Amenorrhea On: 12-Dih-390345:22 Request Planned Encounters Medical; [facility] 2 Month FU - On: 03-Jul-2018 8:30 [facility] Michelle Reaves MD, MD, Dana M Planned Procedures Flu Vaccine (Quadrivalent) On: 02-Jun-2018 Intent 98441Kv: Rafael Tariq Comments: Flulaval Quad [id number] dltd, IMMorgan ROCKY Tariq signed MRI OF LEFT KNEE WITHOUT CONTRAST On: 20-Feb-2018 Intent (68933)By: Michelle Reaves MD Comments: will plan for 4 weeks. Michelle Reaves MD DRAIN/INJECT MAJOR JOINT OR BURSA On: 10-Feb-2018 Intent (65965)By: Michelle Reaves MD Comments: 2 cc Marcaine lot# [id number] 1 cc kenalog lot# [id number] rte: left knee intra articular dose: as above given by:Dr. 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 ROOM HOUSEPERSON Michelle Reaves MD Radiology - Knee - Left - Weight On: 07-Feb-2018 Intent BearingBy: Michelle Reaves MD, MD, Dana M SPECIMEN HNDLNG/TRNSPRT, OFFC > On: 18-Jun-2016 Intent LAB (41816)By: Michelle Reaves MD, MD, Dana M SPECIMEN HNDLNG/TRNSPRT, OFFC > On: 04-Jun-2016 Intent LAB (90657)By: Michelle Reaves MD, MD, Dana M Radiology - Small Bowel Series On: 18-Nov-2015 Intent (08174)By: Michelle Reaves MD, MD, Dana M Radiology - KUBBy: Kirsten Arias CNP On: 31-Aug-2015 Intent E Comments: call to MCiesa INFUSION, NORMAL SALINE SOLUTION , On: 31-Aug-2015 Intent 1000 CC (Special Coverage Comments: 1000 ccIVleft antecub.tolerated well22 nathalie 57-007jtexp 03/2017asRUTH Instructions Apply. See MCM: 2048) (J7030)By: Kirsten Arias CNP E Ultrasound - PelvisBy: Jensen HARGROVE, On: 26-Jul-2015 Intent Michelle Riley MD Comments: attention adrenal glad CT - Abdomen & Pelvis (IV Contrast On: 19-Jul-2015 Intent Needed)By: Yady Weston Ultrasound - Abdomen (Limited Area On: 31-May-2015 Intent or Organs)By: Michelle Reaves MD, MD, Dana M UGI (With air contrast if On: 01-Feb-2015 Intent necessary)By: Michelle Reaves MD, MD, Dana M Ultrasound - GallbladderBy: On: 01-Feb-2015 Intent Michelle Reaves MD, MD, Comments: right now call wtih wet read. Michelle Lenz ELECTROCARDIOGRAM, COMPLETE (ECG) On: 19-Jan-2014 Intent (48148)By: Michelle Reaves MD, MD, Dana M Eprescribed prescriptions On: 02-Jun-2013 Intent (G8553)By: Kathy Sesay LPN EKG (98303)By: Michelle Reaves MD On: 27-Jan-2013 Intent Michelle Reaves MD Comments: see scanned document of test done to see results reviewed today with patient Eprescribed prescriptions On: 27-Jan-2013 Intent (G8553)By: Kathy Sesay LPN TDAP VACCINE >7 IM (83159)By: On: 30-Apr-2011 Intent Michelle Reaves MD, MD, Dana M FLU VAC, SPLIT, >3 YEARS, On: 30-Apr-2011 Intent INTRAMUSC (14947)By: Ferny, Comments: Lot #:[id number] date:mount given:0.5mlRoute: IMSite given:left deltoid Given by: Adam REYEZAINE IMMUNIZ ADMNIN, 1 VAC, SNGL/COMBO On: 30-Apr-2011 Intent (60922)By: PHILLIP Leigh Nuclear Stress Test/Stress On: 05-Mar-2011 Intent SPECT/TreadmillBy: Kirsten Arias CNP ELECTROCARDIOGRAM, COMPLETE (ECG) On: 05-Mar-2011 Intent (61873)By: Kirsten Arias CNP Bio Z (60856)By: Kirsten Arias CNP On: 05-Mar-2011 Intent Holter Moniter (56053)By: Pop On: 29-Nov-2010 Intent DO, Atiya EKG (33351)By: Indu Mai On: 29-Nov-2010 Intent 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 Expiration date unspecified Encounters Office Visit On: 02-Jun-2018 13:28 Encounter Reason: Injections - The medication the patient is here to receive is other (flu shot).Encounter Diagnosis: Need for prophylactic vaccination and inoculation against influenza (Renamed from Need for immunization against influenza) End: 03-Jun-2018 9:08 [facility] Office Visit On: 11-Apr-2018 7:06 Encounter Reason: Follow up acute care visit - The patient does not feel well and improving. Patient has been compliant with instructions. Current medication use: no side effects and compliant with dosing regimen. Charlotteen End: 11-Apr-2018 8:07 t sleeps 7 hours [...] fever. Note for Insect bite/sting: was in [place]- she got lots of bites not sure [...] low grade fever, elevated CRP pos MANAGER MANAGING, elevated WBC on the rise, protein in [...] ow grade fever, elevated CRP pos MANAGER MANAGING, elevated WBC on the rise, protein in [...] of angina, history of CHF, history of ME or smoking.Encounter Diagnosis: Palpitations(785.1), Abnormal EKG(794.31) Comprehensive [...] The skin at the site of the woens is red and blistered. The sym End: 04-Nov-2008 15:36 ptoms have been associated with pain, while the symptoms have not been associated with dyspnea ,loss of consciousness or syncope. Note for Owens: over doorEncounter Diagnosis: Burn of unspecified degree of forearm (943.01) [facility] Payers [facility] Robin RATLIFF; a guarantor
--- OUTSIDE RECORDS SUMMARY | 2018-08-05 17:34 | XMS RPT_ITS | Continuity of Care Document ---
:1980 Author Organization [facility] Address [facility] [address] Phone Care Team Providers Name Role Phone [...] grade fever. Dr. 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 rightn ow no [...] behavior issues. she works across the [place] [employer] he is at and hard for [...] saw Dr. Josh Lemus in vasuclar at [facility] and Dr. 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 Status: Inactive as of 01-Mar-2014 Elevated [...] 686.9) Comments: went into cell[facility] after at [facility] in [place]. will do soap [...] resolve on atb and will follow up [facility] ent Status: Resolved as of 10-May-2017 Unspecified [...] Visit Report Result: Comments: See Note; NOTES: [facility] Orthopaedics AND Sports Medicine [address] [place] [address] OFFICE VISIT Date of Service: 05/06/18 MR#: [id number] Acct: [id number] Name: SANDRA RATLIFF Rep #: [id number] : 1980 Provider: Ofe Jay DO Age/Sex: 37/F [place] [facility] [place]: Signed Intake Intake Visit Reasons: LEFT [...] #10 cap 11/17/15 [Rx] Hydrocodone Bitart/Apap 5-325 [Dunbar 5/325] 1 - 2 tab PO Q4H [...] Only (Routine) Result: Comments: See Note; NOTES: [facility] Imaging Services [address] [place] [address] Lower Ext Joint Only (Routine) MR#: [id number] Acct: [id number] Name: SANDRA RATLIFF Rep #: [id number] : 1980 F 37 From: Laurent Amos MD PCP: Michelle Reaves MD Status: REG CLI Study: Lower Ext Joint Only (Routine) Date of Exam: 04/03/18 Exam# [id number] Ordering Dr: Michelle Reaves MD STUDY: MRI [...] Service support , CC: Michelle Reaves MD Patient Support Partner: Signed 31-Mar-2018 PT D/C Summary (1) Result: Comments: See Note; NOTES: [facility] [address] [place] [address]. [address] [place] [phone] Fax REHABILITATION SERVICES DISCHMCLAREN [place] SUMMARY MR#: [id number] Acct: [id number] Name: SANDRA RATLIFF Rep #: [id number] : 1980 37 From: Keri Mack PT, Cert. MDT Referring Dr.: Michelle Reaves MD Status: REG RCR Insurance: [facility] SELF PAY INSURANCE HP - [...] please feel free to call me at [phone]. Thank you for the referral of this patient. Sincerely, Keri Mack <Electronically signed by Keri Mack PT, Cert. MDT> 03/31/18 1407 CC: Michelle Reaves MD ZELDA Signed 04-Mar-2018 Inital Evaluation (1) - PT Result: Comments: See Note; NOTES: [facility]. [address] [place] [address] Fax REHABILITATION SERVICES INITIAL EVALUATION MR#: [id number] Acct: [id number] Name: SANDRA RATLIFF Rep #: [id number] : 1980 37 From: Keri Mack PT, Cert. MDT Referring Dr.: Michelle Reaves MD Status: REG RCR Insurance: MED [facility] SELF PAY INSURANCE Patient's Visit Information [...] - Subjective Encarnacion bjective: Work/Leisure: [employer]. Disability: NO. Present symptoms: INSIDE OF LEFT [...] to be FAXED BACK to us at [phone] for Medicare purposes. Please let me know if there are questions or concerns regarding this plan of c are. Physician Signature: Date: <Electronically signed by Keri Mack PT Cert. MDT> 03/04/18 1248 CC: Michelle Butterfield ZELDA Signed For Medicare only, by signing this I certify the plan of care. Physicians Signature Date 08-Feb-2018 Knee 4 or More Views Result: Comments: See Note; NOTES: [facility] Imaging Services [address] [place] [address] Knee 4 or More Views MR#: [id number] Acct: [id number] Name: SANDRA RATLIFF Rep #: [id number] : 1980 F 37 From: Caity Felix MD PCP: Michelle Reaves MD Status: REG CLI Study: Knee 4 or More Views Date of Exam: 02/08/18 Exam# [id number] Ordering Dr: Michelle Reaves MD STUDY: X-RAY - LEFT KNEE REASON FOR EXAM: Female, 37 years old. [place] pop swelling pain TECHNIQUE: 4 view(s) of [...] Tel , Service support , Fa x [phone] CC: Michelle Reaves MD Patient Support Partner: Signed 22-Nov-2015 Emergency Department Summary Result: Comments: See Note; NOTES: [facility] Medical Records Department [address] [place] [address] Emergency Department Summary MR#: [id number] Acct: [id number] Name: SANDRA RATLIFF Rep #: [id number] : 1980 35 From: Bulmaro Rodriguez MD [...] with Dr. Reaves, return with any problems. Nicasio diet, fluids. CLINICAL IMPRESSION: Abdominal pain with nausea and diarrhea. DISPOSITION: Home. MD Chase Odom C: Michelle Reaves MD T: [facility] JOB: [id number] 11/22/15 2339 <Electronically signed by Bulmaro Rodriguez MD> Date Bulmaro Rodriguez MD Cosigner Signature (If Indicated): Date CC: Michelle Reaevs MD Date Dictated: 11/17/15 1240 Date Transcribed: 11/17/15 1240 Patient Support Partner: Signed 22-Nov-2015 Small Bowel Series Only Result: Comments: See Note; NOTES: [facility] Imaging Services [address] [place] [address] Verda 4d Small Bowel Series Only MR#: [id number] Acct: [id number] Name: HER SANDRA MCKEON Rep #: [id number] : 1980 F 35 From: Leigha Colon MD PCP: Michelle Reaves MD Status: REG CLI Study: Small Bowel Series Only Date of Exam: 11/22/15 Exam# [id number] Ordering Dr: Michelle Medina MD STUDY: AIR-CONTRAST [...] spot views were obtained COMPARISON: None. FINDINGS: Energy Conservation Specialist view: The bowel gas pattern is unremarkable [...] at 16:48 EDT Tel , Service support [phone], RAD/Small Bowel Series Only IMPRESSION: Unremarkable study. Electronically Signed: Leigha Colon MD at 16:48 E DT Tel , Service support [phone], CC: Michelle Reaves MD Patient Support Partner: Signed 17-Nov-2015 Discharge Instruction Result: Comments: See Note; NOTES: [facility] Medical Records Department [address] [place] [address] Discharge Instruction 11/17/15 1236 MR#: [id number] Acct: [id number] Name: SANDRA RATLIFF Rep #: [id number] : 1980 35 From: Bulmaro Rodriguez MD PCP: Michelle Reaves MD Status: REG ER ED Disposition - Plan for ED Patient: Disposition: Home or Assisted Living Chief Complaint: Abd Pain Instructions: ED Abdominal Pain, Unknown Cause, (Female), ED Vomiting And Diarrhea, Nonspecific (Adult) Prescriptions: Hydrocodone Bitart/Apap 5-325 [Dunbar 5/325] 1 - 2 t ablet PO [...] problems, contact your doctor. Call [facility] ([phone]) or report to the closest [facility] Room. Call 911 if necessary. 11/17/15 1238 <Electronically signed by Bulmaro Rodriguez MD> Date Bulmaro [place] (If Indicated): Date CC: Michelle Reaves MD 17-Nov-2015 Abdomen/Pelvis WITH Contrast Result: Comments: See Note; NOTES: [facility] Imaging Services [address] [place] [address] Verdana 4d Abdomen/Pelvis WITH Contrast MR#: [id number] Acct: [id number] Name : SANDRA RATLIFF Rep #: [id number] : 1980 F 35 From: Isaac Espinoza MD PCP: Michelle Reaves MD Status: [facility] ER Study: Abdomen/Pelvis WITH Contrast Date of Exam: 11/17/15 Exam# [id number] [facility] Dr: Bulmaro Rodriguez MD STUDY: CT ABDOMEN AND PELVIS WITH CONTRAST REASON FOR EXAM: Female, 35 years old. Mid lower abdominal pain. Diarrhea and nausea. RADIATION DOSAGE (If Supplied By [facility]): CTDIvol = ( 18.40 ) mGy, [...] is made with prior study dated [facility] 2015. FINDINGS: The visualized lung bases [...] Isaac Espinoza MD at 12:27 EDT Tel [phone], Service support [phone], CC: Michelle Reaves MD; Bulmaro Rodriguez MD Patient Support Partner: Signed 13-Nov-2015 Operative Report Result: Comments: See Note; NOTES: [facility] Medical Records Department [address] [place] [address] Operative Report MR#: [id number] Acct: [id number] Name: NITIN RATLIFF Rep #: [id number] : 1980 35 From: Vi Sanchez MD [...] complications. Vi Sanchez MD T: [facility] JOB: [id number] 11/13/15 0940 <Electronically sig shawn by Vi Sanchez MD> Date Vi Sanchez MD Cosigner Signature (If Indicated): Date C C: Michelle Reaves MD; Vi Sanchez MD Date Dictated: 11/07/15910 Date Transcribed: 11/07/15910 Patient Support Partner: Signed 31-Aug-2015 Abdomen Single View Result: Comments: See Note; NOTES: [facility] Imaging Services [address] [place] [address] Verdana 4d Abdomen Single View MR#: [id number] Acct: [id number] Name: SANDRA RATLIFF Rep #: [id number] : 1980 F 35 From: Isaac Espinoza MD PCP: Michelle Reaves MD Status: REG CLI Study: Abdomen Single View Date of Exam: 08/31/15 Exam# [id number] Ordering Dr: Kirsten Arias STUDY: X-RAY - [...] Isaac Espinoza MD at 13:18 EST Tel [phone], Service support [phone], RAD/Abdomen Single View IMPRESSION: Normal x-ra y examination of the abdomen and pelvis. Electronically Signed: Isaac Espinoza MD at 13:18 EST Tel [phone], Service support [phone], CC: Kirsten Arias ; Michelle Reaves MD Patient Support Partner: Signed 29-Jul-2015 Transvaginal Non- Result: Comments: See Note; NOTES: [facility] Imaging Services [address] [place] [address] Verdana 4d Transvaginal Non- MR#: [id number] Acct: [id number] Name: SANDRA ZAVALA Rep #: [id number] : 1980 F 35 From: Isaac Espinoza MD PCP: Michelle Reaves MD Status: REG CLI Study: Transvaginal Non- Date of Exam: 07/29/15 Exam# [id number] Orderi Dr: Michelle Reaves MD STUDY: ULTRASOUND [...] Isaac Espinoza MD at 14:01 EST Tel [phone], Service support [phone], CC: Michelle Reaves MD Patient Support Partner: Signed 29-Jul-2015 Pelvic (Non ) Result: Comments: See Note; NOTES: [facility] Imaging Services [address] [place] [address] Verdana 4d Pelvic (Non ) MR#: [id number] Acct: [id number] Name: SANDRA BLELE Rep #: [id number] : 1980 F 35 From: Isaac Espinoza MD PCP: Michelle Reaves MD Status: REG CLI Study: Pelvic (Non ) Date of Exam: 07/29/15 Exam# [id number] Ordering Dr: Michelle Ponce MD STUDY: ULTRASOUND [...] Isaac Espinoza MD at 14:01 EST Tel [phone], Service support [phone], CC: Michelle Reaves MD Patient Support Partner: Signed 25-Jul-2015 Abdomen/Pelvis WITH Contrast Result: Comments: See Note; NOTES: [facility] Imaging Services [address] [place] [address] Wichodana 4d Abdomen/Pelvis WITH Contrast MR#: [id number] Acct: [id number] Name : SANDRA RATLIFF Rep #: [id number] : 1980 F 35 From: Isaac Espinoza MD PCP: Michelle Reaves MD Status: REG CLI Study: Abdomen/Pelvis WITH Contrast Date of Exam: 07/25/15 Exam# [id number] Ordering Dr: Michelle Reaves MD STUDY: CT [...] Isaac Espinoza MD at 9:19 EST Tel [phone], Service support [phone], CC: Michelle Reaves MD Patient Support Partner: Signed 07-Jul-2015 Abdomen Limited Result: Comments: See Note; NOTES: [facility] Imaging Services [address] [place] [address] Verdana 4d Abdomen Limited MR#: [id number] Acct: [id number] Name: JEANNIE RATLIFF Rep #: [id number] : 1980 F 35 From: Leigha Colon MD PCP: Michelle Reaves MD Status: REG CLI Study: Abdomen Limited Date of Exam: 07/07/15 Exam# [id number] Ordering Dr: Michelle Reaves MD STUDY: ABDOMINAL [...] at 16:22 EST Tel , Service support [phone], CC: Michelle Reaves MD Patient Support Partner: Signed 22-Apr-2015 OT Discharge Summary Result: Comments: See Note; NOTES: [facility] [address] [facility] [place], [place] [address] Fax REHABILITATIO N SERVICES DISCHARGE SUMMARY MR#: [id number] Acct: [id number] Name: SANDRA RATLIFF Rep #: [id number] : 1980 34 From: Bernarda De La [...] However, she did make some improvements. Her digester operator strength improved from 35 pounds to 70 pounds. She was reporting independence with act ivities of daily living at this time. The patient was last seen on January 11, 2015, no further appointments were indicated. At this time, the patient is discharged. Bernarda De La Vega, OTR/L T: EMILY JOB: [id number] <Electronically signed by Bernarda De La Vega > 04/22/15 1057 CC: Signed 10-Feb-2015 Operative Report Result: Comments: See Note; NOTES: [facility] Medical Records Department [address] [place] [address] [place] [address] Operative Report 02/02/15 1305 MR#: [id number] Acct: [id number] Name: SANDRA DAUGHERTY Rep #: [id number] : 1980 34 From: Vi Sanchez MD PCP: Michelle Reaves MD Status: [place] [facility] [place] [facility] Report of Operation Date of Procedure: 02/02/15 Pre-Operative Diagno sis: cholelithiasis, cholecystitis Post-Operative Diagnosis: same Surgery/Procedure Performed:: laparoscopic cholecystectomy with cholangiogram auricular therapist: NOT,DEFINED Type of Anesthesia:: General Anesthesiologist: Aide [...] by Vi Sanchez MD> Date ____ Vi Sacnhez MD CC: Michelle Reavse MD; Vi Sanchez MD Signed 04-Feb-2015 12 Lead Electrocardiogram Result: Comments: See Note; NOTES: [facility] Cardiovascular Services [address] [place] [address] 12 Lead EKG 02/02/159 MR#: [id number] Acct: [id number] Name: ELISABETH RATLIFF Rep #: [id number] : 1980 34 From: Stephane Boyle MD Attending Dr: Vi Sanchez MD Status: [place] [facility] [place] Dr: Buzz Collins MD Date: 02/02/15 [place] [facility] Sex: F C Admitted: Test Yesica son [...] available Confirmed by STEPHANE BOYLE MD ([id number]), videotape editor JASMIN RAMOS (56) on 02/04/2015 10:20:06 AM Referred By: LALO Confirmed By:STEPHANE BOYLE MD 1020 Date Stephane Boyle MD CC: Michelle Reaves MD Date Dictated: 02/02/151128 Date Transcribed: 02/02/151128 Patient Support Partner: Signed 04-Feb-2015 Emergency Department Summary Result: Comments: See Note; NOTES: [facility] Medical Records Department [address] [facility] [place] [address] Emergency Department Summary MR#: [id number] Acct: [id number] Name: SANDRA BELLE Rep #: [id number] : 1980 34 From: Naldo Schaeffer MD [...] Chase Perdomo C: Michelle Reaves MD T: [facility] JOB: [id number] 02/04/15 5593 <Electronically signed by Naldo Schaeffer MD> Date Naldo quintanilla MD CC: Michelle Reaves MD Date Dictated: 02/01/1537 Date Transcribed: 02/01/15536 Patient Support Partner: Signed 02-Feb-2015 Discharge Instruction Result: Comments: See Note; NOTES: [facility] Medical Records Department [address] [place] [address] Instructions for Home/Discharge Instructions 02/02/15 1305 MR#: [id number] ct: [id number] Name: SANDRA RATLIFF Rep #: [id number] : 1980 34 From: Vi Sanchez MD [...] Physical Exam Result: Comments: See Note; NOTES: [facility] Medical Records Department [address] [place] [address] History and Physical 02/02/15 1155 MR#: [id number] Acct: [id number] Name: SANDRA RATLIFF Rep #: [id number] : 1980 34 From: Vi Sanchez MD PCP: Michelle Reaves MD Status: REG [facility] [place] Location: [place] [address] History and Physical - Blank Date of Admission: 02/02/15 P [facility] Provider: Dr. Reaves History of Present [...] Morbid obesity, class III Past Surgical History: [place] teeth extraction C section 2010 Past injuries: [...] 77 / minute Resp: 18 per min eyak BP sittin / 83 General: well developed, [...] 01-Feb-2015 Gallbladder Result: Comments: See Note; NOTES: [facility] Imaging Services [address] [place] [address] Ultrasound Report MR#: [id number] Acct: [id number] Name: SANDRA RATLIFF Rep #: [id number] : 1980 F 34 From: Deonte Woods DO PCP: Michlele Reaves MD Status: REG CLI Study: Gallbladder Date of Exam: 02/01/15 Exam# [id number] Ordering Dr: Michelle Reaves MD STUDY: ABDOMINAL [...] Deonte Woods DO at 17:18 EDT Tel [phone], Service suppor t [phone], N.B. : The above information has been verbally conveyed by Deonte Woods DO to Michelle Reaves MD, Referring Physician, on 02/01/2015 17:24:35 (ET). CC: Michelle Reaves MD Patient Support Partner: Signed 01-Feb-2015 Discharge Instruction Result: Comments: See Note; NOTES: [facility] Medical Records Department [address] [place] [address] Discharge Instruction 02/01/15 0534 MR#: [id number] Acct: [id number] Name: SANDRA RATLFIF Rep #: [id number] : 1980 34 From: Naldo Schaeffer MD [...] problems, contact your doctor. Call [facility] ([phone]) or report to the closest Emergency Room. Call 911 if necessary. 02/01/15 0535 <Electronically signed by Abdullahi Schaeffer MD> Date Naldo Schaeffer MD Cosigner Signature (If Indicated): Date CC: Michelle Reaves MD 18-Nov-2014 Initial Evaluation - OT Result: Comments: See Note; NOTES: [facility] [address] [place] [address]. [address] [place] [address] Fax REHABILITATION SERV ICES INITIAL EVALUATION MR#: [id number] Acct: [id number] Name: SANDRA RATLIFF Rep #: [id number] : 1980 34 From: Bernarda De La Vega Referring Dr.: Ofe Jay DO Status: REG RCR Insu elly: [facility] Date: DATE OF SERVICE: PHYSICIAN: Ofe Jay [...] Right ulnar deviation 10, left 30. Right digester operator strength is 35 pounds, left is 70 [...] The patient will demonstrate increase in right digester operator strength to 65 pounds or greater to [...] De La Vega OTR/L T: EMILY JOB: [id number] <Electronically signed by Bernarda De La Vega & #62; 11/18/14 0927 CC: Signed For Medicare only, by signing this I certify the plan of care. Physicians Signature Date 04-Nov-2014 Wrist min 3 Views Result: Comments: See Note; NOTES: [facility] Imaging Services [address] [facility] [place] [address] Radiology Report MR#: [id number] Acct: [id number] Name: SANDRA RATLIFF Rep #: [id number] : 1980 F 34 From: Catrachito Wren MD PCP: Michelle Reaves MD Status: REG CLI Study: Wrist min 3 Views Date of Exam: 11/04/14 Exam# [id number] Ordering Dr: Ofe Jay DO STUDY: X-RA [...] MD at 14:57 EDT , Service support [phone], RAD/Wrist min 3 Views IMPRESSION: Normal x-ray examination of the wrist. Electronically Signed: Catrachito Wren MD at 14:57 EDT , Service support [phone], Fax CC: Ofe Jay DO; Michelle Reaves MD Patient Support Partner: Signed Immunization Name Dates Details Tdap (7 [...] Grandfather Comments: Alzheimer's , prostate cancer in [place], borderline diabetic. Status: Active Maternal Grandmother Comments: hx. angioplasty living Status: Active Mother Comments: ESRD, Gabriel's, hx. kidney transplant, osteoporosis, hypothyroid Status: Active Paternal Grandfather Comments: black lung disease Status: Active Paternal Grandmother Comments: heart disease, age 69 Status: Active Sister 1 Comments: healthy Status: Active Social History Name Dates Details Alcohol Use: Occasional alcohol use. 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 Aries [phone] Status: Active Exercise History: Exercises occasionally. Comments: [...] kg/m2 Body Surface Area Calculated 2.52 m2 2-Lfr-403183:12 BP Systolic 138 mm[Hg] Comments: Patient Position: [...] kg/m2 Body Surface Area Calculated 2.52 m2 83-Ggx-485440:01 Temperature 97 f Comments: Method: Temporal Pulse [...] kg/m2 Body Surface Area Calculated 2.38 m2 69-Gsb-750899:00 Temperature 98.2 f Pulse 116 /min Comments: [...] in this mix are: Blue mussel Fish [place] Shrimp Tuna EGG, WHOLE <0.10 kU/L (Normal) CHOCOLATE <0.10 kU/L (Normal) Comments: Performed at: [facility] [id number] Director: Davide Jordan MD, Phone: [phone] BEEF <0.10 kU/L (Normal) PORK <0.10 kU/L (Normal) SOYBEAN <0.10 kU/L (Normal) PEANUT <0.10 kU/L (Normal) CORN <0.10 kU/L (Normal) WHEAT <0.10 kU/L (Normal) MILK (COW) <0.10 kU/L (Normal) :43 CBC-Complete Blood Cnt No Diff Comments: [facility] [address] [facility] [place], [place], [id number] ; fu 10-5 DB MPV 10.0 fL [...] Range: 4.4-11.0 :43 Comprehensive Metabolic Profil Comments: [facility] [address] [facility] [place], [place], [id number] GAP 10 (Normal) Range: 5-15 CO2 27.0 [...] Comments: Please note revised GLUCOSE reference range /02/2018. :43 T4 Free Direct Comments: [facility] [address] [place], [place], [id number] T4 FREE DIRECT 1.04 ng/dL (Normal) Range: 0.76-1.46 :43 Thyroid Stim Hormone (TSH) Comments: [facility] [address] [place], [place], [address] TSH 2.11 {uIU/mL} (Normal) Range: 0.358-3.74 40-Hue-46596:43 Vitamin D,25 Hydroxy Comments: [facility] [address] [place], [address] Vitamin D 25-OH 30.2 ng/mL (Normal) Range: 29.95-100.01 Comments: Vitamin D 25(OH) Status Range Deficiency <20 ng/mL (50nmol/L) Insuffciency 20 - 30 ng/mL (50 - 75 nmol/L) Sufficiency 30 - 100 ng/mL (75 - 250 nmol/L) Toxicity >100 ng/mL (>250 nmol/L) 8-Hpb-263324:16 NuSwab Vaginitis Plus Comments: PATIENT NOT FASTINGPERFORMED BY: [facility] [id number] Information: SRC:CE (trich/BV/GC/linda W/O Herpes) (06863) Neisseria gonorrhoeae, Negative (Normal) ROBERT Chlamydia trachomatis, Negative (Normal) ROBERT Trich vag by ROBERT Negative (Normal) Mercedes glabrata, ROBERT Negative (Normal) Comments: This test was developed and its performance characteristics determinedby [facility]. It has not been cleared or approved [...] was developed and its performance characteristicsdetermined by [facility]. It has not been cleared or approvedby the Food and Drug Administration. The FDA has determinedthat such clearance or approval is not necessary. BVAB 2 Low - 0 {Score} (Normal) Atopobium vaginae Low - 0 {Score} (Normal) 0-Nis-144981:16 HPV automatic Comments: Source.............Cervix;EndocervixNo. of containers..01 ThinPrep VialPATIENT NOT FASTINGPERFORMED BY: [facility] [place] [id number] BY: =G [facility] [place] ([address]) [place] [id number] Information: [id number] HPV, high-risk Negative Comments: This high-risk HPV [...] metaplasticcells (endocervical com ponent) are present.Z01.419Nathaly Reese Housing Counselor (ASCP) 09-May-20178:25 URINE AUTUMN CULTURE-IDENTIFICATN Comments: PATIENT NOT FASTINGPERFORMED BY: CB [facility] [address] [facility] [id number] ([address]) Antimicrobial MIHEAD (Normal) Comments: S = Susceptible; [...] Urine Final report Culture,Comprehensive (Abnormal) :25 URINALYSIS (75569) Comments: PATIENT NOT FASTINGPERFORMED BY: [facility] [id number] Information: SRC:UC Microscopic Examination MICNIP (Normal) Comments: Microscopic not indicated and not performed. Nitrite, Urine Negative (Normal) Urobilinogen,Semi-Qn 0.2 mg/dL (Normal) Range: 0.2-1.0 Bilirubin Negative (Normal) Occult Blood Negative (Normal) Ketones Negative (Normal) Glucose Negative (Normal) Protein Negative (Normal) WBC Esterase Negative (Normal) Appearance Clear (Normal) Urine-Color Yellow (Normal) pH 5.5 (Normal) Range: 5.0-7.5 Specific [place] 1.022 (Normal) Range: 1.005-1.030 :35 CBC, Platelets & Auto Diff Comments: PATIENT NOT FASTINGPERFORMED BY: [facility] Gaujyg5733 [facility] [id number] Information: NURSE DRAW (01362) Immature Grans (Abs) 0.0 {x10E3/uL} (Normal) Range: [...] Panel, Comprehensive Comments: PATIENT NOT FASTINGPERFORMED BY: [facility]CoCh[facility] HospitalUegexd3083 [facility] [id number] (84980) ALT (SGPT) 18 [iU]/L (Normal) Range: 0-32 [...] (Abnormal) Range: 65-99 :35 T3, FREE (TRIDOTHYRONINE) (32231) Comments: PATIENT NOT FASTINGPERFORMED BY: [facility]6370 [facility] [id number] Triiodothyronine,Free,Serum 3.7 pg/mL (Normal) Range: 2.0-4.4 :35 T4, FREE (THYROXINE) (07543) Comments: PATIENT NOT FASTINGPERFORMED BY: [facility]6370 [facility] [id number] T4,Free(Direct) 1.07 ng/dL (Normal) Range: 0.82-1.77 :15 HgA1C , Office (54469) HgA1C , Office 5.5 % (Normal) Range: 4.6 - 7.1 :33 METABOLIC PANEL, Comments: PATIENT WAS FASTINGPERFORMED BY: [address] [id number] BY: [facility]6370 [facility] [id number] COMPREHENSIVE (48920) ALT (SGPT) 21 [iU]/L (Normal) Range: 0-32 [...] Glucose, Serum 88 mg/dL (Normal) Range: 65-99 93-Fza-484102:33 LIPOPROTEIN, BLD, BY NMR Comments: PATIENT WAS FASTINGPERFORMED BY: BN [facility] Isnhcpkujs2543 [facility] [id number] BY: CB [facility] Pussog7205 [facility] [id number]; fu 8-1 db (57087) LP-IR Score 72 (Abnormal) Comments: INSULIN RESISTANCE MARKER <--Insulin Sensitive Insulin Resistant--> Percentile in Reference PopulationInsulin Resistance ScoreLP-IR Score Low 25th 50th 75th High <27 27 45 63 >63LP-IR Score is inaccurate if patient is non-fasting. .The LP-IR score is a laboratory developed i [facility] that has beenassociated with insulin resistance [...] 1600 - 2000 Very High > 2000 15-Ddl-281722:33 CBC with auto diff Comments: PATIENT WAS FASTINGPERFORMED BY: BN [facility] [address] [id number] BY: CB [facility] Ddfxsz9178 [facility] [id number] (40737) Immature Grans (Abs) 0.0 {x10E3/uL} (Normal) Range: [...] 3.77-5.28 WBC 9.2 {x10E3/uL} (Normal) Range: 3.4-10.8 62-Dqp-832797:33 CALCIFIDIOL (82258) VIT D Comments: PATIENT WAS FASTINGPERFORMED BY: BN [facility] Alhinfmnav4907 [facility] [id number] BY: CB [facility] Zpedqy2444 [facility] [id number] 25 Vitamin D, 25-Hydroxy 51.8 ng/mL (Normal) Range: 30.0-100.0 Comments: Vitamin D deficiency has been defined by the [place] ofMedicine and an Endocrine Society practice guideline as alevel of serum 25-OH vitamin D less than 20 ng/mL (1,2).The Endocrine Society went on to further define vitamin Dinsufficiency as a level between 21 and 29 ng/mL (2).1. IOM ([place] of Medicine). 2010. Dietary reference intakes for calcium and D. [place]: The National Academies Press.2. Clari MF, Jose LEES, Ash NETTLES, et al. Evaluation, treatment, and prevention of vitamin D deficiency: an Endocrine Society clinical practice guideline. JCEM. 2010; 96(7):1911-30. 58-Cxw-66381:38 AUTUMN CULTURE-OTHER (71778) Comments: PATIENT NOT FASTINGPERFORMED BY: [facility] Lqobhl1526 [facility] [id number] Information: SRC:TH Result 1 RRF (Normal) Comments: Routine respiratory juan Upper Respiratory Culture Final report (Normal) 57-Fxr-32157:32 AUTUMN CULTURE-OTHER (38998) Comments: PATIENT NOT FASTINGPERFORMED BY: [facility] Bizkba9963 [facility] [id number] Information: SRC:TH Result 1 RRF (Normal) Comments: Routine respiratory juan Upper Respiratory Culture Final report (Normal) 97-Jlt-589453:35 Rapid Strep Test, Office (64437) Rapid Strep Test, Office Negative (Normal) 80-Nxq-937235:39 CBC W/Diff, Automated Comments: [facility] Pajtwnwcac4[address] [place], [address] Absolute Lymph 3.19 {X10_3/ul} (Normal) Range: 0.83-4.51 [...] 4.2-5.4 WBC 9.6 K/mm3 (Normal) Range: 4.4-11.0 00-Brh-377829:39 Prothrombin Time w/INR Comments: [facility] Xvdpqycgev30[address] [place], [place], [address] INR 1.0 (Normal) PROTIME 12.9 s (Normal) Range: 11.7-14.9 20-Ymv-751936:58 CBC, Platelets & Auto Comments: PATIENT NOT FASTINGPERFORMED BY: [facility] Ruidke3904 [facility] [id number] Information: [id number] Diff (08047) Immature Grans (Abs) 0.0 {x10E3/uL} (Normal) Range: [...] (Normal) Range: 3.4-10.8 :58 T3, FREE (TRIDOTHYRONINE) (20155) Comments: PATIENT NOT FASTINGPERFORMED BY: [place] 4778470 [facility] [id number] Triiodothyronine,Free,Serum 3.2 pg/mL (Normal) Range: 2.0-4.4 :58 T4, FREE (THYROXINE) (37028) Comments: PATIENT NOT FASTINGPERFORMED BY: [address] [id number] T4,Free(Direct) 1.07 ng/dL (Normal) Range: 0.82-1.77 :58 TSH (07280) Comments: PATIENT NOT FASTINGPERFORMED BY: [place] 4778470 [facility] [id number] TSH 2.830 {uIU/mL} (Normal) Range: 0.450-4.500 :58 HELICOBACTER PYLORI ANTIBODY Comments: PATIENT NOT FASTINGPERFORMED BY: [place] 4778470 [facility] [id number] (63244) H. pylori, IgG Abs <0.9 U/mL (Normal) Range: 0.0-0.8 Comments: Negative <0.9 Indeterminate 0.9 - 1.0 Positive >1.0 :46 Testosterone, Free+Total Comments: PATIENT NOT FASTINGPERFORMED BY: [address] [id number] BY: [place] 4778470 [facility] [id number] Information: [id number] LC/MS Free Testosterone(Direct) 1.5 pg/mL Range: 0.0-4.2 (Normal) Testosterone, Total, LC/MS 11.8 ng/dL Range: 10.0-55.0 (Normal) Comments: This test was developed and its performance characteristicsdetermined by [employer]. It has not been cleared or approvedby the Food and Drug Administration. Written Authorization WAR (Normal) Comments: PATIENT NOT FASTINGPERFORMED BY: [facility]1447 [facility] [id number] BY: [facility] Efubeq8134 [facility] [id number] 610:46 Comments: Written Authorization Received.Authorization received from PHILLIP LEIGH LPN [id number] by Chichi Flores 7-Tey-976341:46 CALCIFIDIOL (56126) VIT D 25 Comments: PATIENT NOT FASTINGPERFORMED BY: [facility]6370 [facility] [id number] Vitamin D, 25-Hydroxy 41.9 ng/mL (Normal) Range: 30.0-100.0 Comments: Vitamin D deficiency has been defined by the [place] of[place]icine and an Endocrine Society practice guideline as alevel of serum 25-OH vitamin D less than 20 ng/mL (1,2).The Endocrine Society went on to further define vitamin Dinsufficiency as a level between 21 and 29 ng/mL (2).1. IOM ([place] of Medicine). 2010. Dietary reference intakes for calcium and D. [place]: The National Academies Press.2. Clari MF, Jose [place], Ash NETTLES, et al. Evaluation, treatment, and prevention of vitamin D deficiency: an Endocrine Society clinical practice guideline. JCEM. 2010; 96(7):1911-30. 0-Fsu-414099:46 Metabolic Panel, Comments: PATIENT NOT FASTINGPERFORMED BY: [facility] Votnuo1224 [facility] [id number] Information: [id number] Comprehensive (31635) ALT (SGPT) 21 [iU]/L (Normal) Range: 0-32 [...] Glucose, Serum 81 mg/dL (Normal) Range: 65-99 94-Lyd-569161:16 Cortisol,Urinary Free 24- Comments: PATIENT NOT FASTINGPERFORMED BY: MARIANNE [facility] [address] [id number] Information: [id number] VOLUME 1800; fu 8-18 Hour Urine (73505) Cortisol,F,ug/24hr,U 18 {ug/24_hr} (Normal) Range: 0-50 Comments: This test was developed and its performance characteristicsdetermined by [facility]. It has not been cleared or approvedby the Food and Drug Administration. Cortisol,F,ug/L,U 10 ug/L (Normal) 7-Xcv-749597:46 HGB A1C (09627) Comments: PATIENT NOT FASTINGPERFORMED BY: INA [facility] Ufjwbn9755 [facility] [id number] Hemoglobin A1c 5.5 % (Normal) Range: 4.8-5.6 Comments: . Pre-diabetes: 5.7 - 6.4 Diabetes: >6.4 Glycemic control for adults with diabetes: <7.0 12-Qhs-365303:13 SEROTONIN (09159) Comments: PATIENT NOT FASTINGPERFORMED BY: [address] [id number] Information: [id number] Serotonin, Serum 10 ng/mL (Normal) Range: 0-420 :42 TSH (THYROID STIMULATING Comments: PATIENT NOT FASTINGPERFORMED BY: [address] [id number] HORMONE) (35295) TSH 1.560 {uIU/mL} (Normal) Range: 0.450-4.500 :42 CBC, PLATELETS & MANUAL Comments: PATIENT NOT FASTINGPERFORMED BY: [facility]6370 [facility] [id number] Information: [id number] DIFF (30713) Immature Grans (Abs) 0.0 {x10E3/uL} (Normal) Range: [...] ERYTHROCYTE - Comments: PATIENT NOT FASTINGPERFORMED BY: [facility]Co[facility] HospitalGlvazd1942 [facility] [id number] FEMALE) (87312) Sedimentation Rate-Westergren 25 mm/h (Normal) Range: 0-32 :42 PREALBUMIN (40650) Comments: PATIENT NOT FASTINGPERFORMED BY: [facility]CoCh[facility] HospitalDvneol6820 [facility] [id number] Prealbumin 28 mg/dL (Normal) Range: 9-31 Comments: [...] - 36 >70 years 9 - 32 47-Mjz-869343:45 Urinalysis, Complete Comments: Order Date: 11/17/15How was Urine Obtained? EDGE GRINDER MACHINE TO [facility] Iomvknoieb[address] [place], [place], [address] MUCUS, URINE 0 SEEN {/hpf} (Normal) BACTERIA [...] Yellow (Normal) :08 CBC W/Diff, Automated Comments: [facility] Isyccholge[address] [place], [place], [address] Absolute Lymph 1.81 {X10_3/ul} (Normal) Range: 0.83-4.51 [...] Range: 4.4-11.0 :08 Comprehensive Metabolic Profil Comments: [facility] Xuufbrsgas[address] [place], [place], [address] GAP 6 (Normal) Range: 5-15 CO2 27.0 [...] mg/dL (Normal) Range: 70-110 :08 Lipase Comments: [facility] [address] [place], [place], [address] LIPASE 160 U/L (Normal) Range: 73-393 :08 ,Serum,hCG Quali. Comments: [facility] [address]yscam[address] [place], [place], [address] HCGSQUAL NEGATIVE {Negative} Range: 0-9 Nonpreg (Normal) HCG Qual triggr < 1 m[iU]/mL (Normal) 4-May-94695:00 LIPOMA (SOFT TISSUE) See Note (Normal) Comments: [facility] [address] [place], [address] Comments: Patient: SANDRA RATLIFF : 1980 (35/F) Acct Num: [id number] Phys: Yohan HARGROVE,Vi Unit Num: [id number] Loc: [facility] Specimen: [id number] Received: 11/09/151842 Spec Type: LIPOMA TISSUES TISSUES: GROSS DESCRIPTION Received is one container labeled with the patient name and designated abdominal lesion. The specimen consists of multiple irregular fragm ents of yellow fatty tissue that in aggregate measure 4 x 3 x 1 cm. Photoresist Printer portions are submitted in one cassette. / AM:shubham 11/10/15 TC:1 CPT:82801 HEADER OPERATION: Excision upper left a bdominal wall lesion PRE-OP DIAGNOSIS: Upper left abdominal wall lesion TISSUE SUBMITTED: Lipoma of abdominal wall MICROSCOPIC DESCRIPTION Slides are reviewed. MICROSCOPIC DIAGNOSIS Lipo ma of abdominal wall, excision: Mature adipose tissue, consistent with lipoma. SJ:shubham 11/11/15 Signed Yimi Zapata 11/11/15 <signature on file> 7-Dhd-602535:50 Culture, Blood (WB) Comments: [facility] [address] [place], [place], [address] CUB See Note (Normal) Comments: BCNo growth in 5 days. 0-Tgd-340286:50 Culture, Blood (WB) Comments: [facility] [address] [place], [place], [address] CUB See Note (Normal) Comments: BCNo growth in 5 days. :08 Urinalysis, Office (97369) UA - LEUKOCYTE ESTERASE Negative (Normal) UA - NITRITE Negative (Normal) URINE UROBILINGN DWAYNE TIMED Normal mg/dL (Normal) UA - PROTEIN 30 mg/dL (Normal) UA - PH 6 (Abnormal) UA - BLOOD Negative (Normal) UA - SPECIFIC GRAVITY 1.020 (Normal) UA - KETONES 15 ug/dL (Abnormal) UA - BILIRUBIN Moderate (Normal) UA - GLUCOSE Negative (Normal) 23-Edg-775753:10 Microscopic Examination Comments: PATIENT NOT FASTINGPERFORMED BY: VungleChilton Memorial HospitalEnfksm1954 [facility] [id number] Bacteria Few (Normal) Mucus Threads Present (Normal) Cast Type Hyaline casts (Normal) Casts Present {/lpf} (Abnormal) Epithelial Cells (non renal) 0-10 {/hpf} (Normal) Range: 0 - 10 RBC 0-2 {/hpf} (Normal) Range: 0 - 2 WBC 6-10 {/hpf} (Abnormal) Range: 0 - 5 55-Ihe-567812:51 ANCA Panel Comments: PATIENT NOT FASTINGPERFORMED BY: MyBeautyCompareDaniel [place] 886037 [facility] [id number] BY: MyBeautyCompareSarah [place] 9476770 [facility] [id number] Information: [id number] Atypical pANCA <1:20 {titer} Comments: The atypical [...] WAR (Normal) Comments: PATIENT NOT FASTINGPERFORMED BY: [facility] Hospital1447 [facility] [id number] BY: LabBeaumont Hospital6370 [facility] [id number] 612:51 Comments: Written Authorization Received.Authorization received from ERIKA RUANO LPN [id number] by Shalini Ramos 05-Hhq-714290:51 CBC WITH MANUAL DIFF Comments: PATIENT NOT FASTINGPERFORMED BY: LabBe[facility] Hospital6370 [facility] [id number] Information: [id number] (56710) Immature Grans (Abs) 0.0 {x10E3/uL} (Normal) Range: [...] 3.77-5.28 WBC 7.8 {x10E3/uL} (Normal) Range: 3.4-10.8 12-Yzv-172449:10 URINE AUTUMN CULTURE-IDENTIFICATN Comments: PATIENT NOT FASTINGPERFORMED BY: [place] 4778470 [facility] [id number] (13570) Result 1 NG36 (Normal) Comments: No growth in 36 - 48 hours. Urine Culture,Comprehensive Final report (Normal) 58-Lyz-639776:51 COMPLEMENT C4 (16177) Comments: PATIENT NOT FASTINGPERFORMED BY: [place] 4778470 [facility] [id number] Complement C4, Serum 50 mg/dL (Abnormal) Range: 14-44 88-Fme-448269:51 COMPLEMENT C3 (80766) Comments: PATIENT NOT FASTINGPERFORMED BY: [address] [id number] Complement C3, Serum 204 mg/dL (Abnormal) Range: 82-167 32-Txu-824387:58 COMPLEMENT, TOTAL (CH50) Comments: PATIENT NOT FASTINGPERFORMED BY: [address] [id number] Information: [id number] (41925) Complement, Total (CH50) >60 U/mL (Abnormal) Range: 42-60 Comments: Please note reference interval change 43-Ech-151081:10 URINALYSIS (81944) Comments: PATIENT NOT FASTINGPERFORMED BY: [address] [id number] Information: [id number] Microscopic Examination See below: (Normal) Comments: Microscopic was indicated and was performed. Appearance Cloudy (Abnormal) Urine-Color [place] (Normal) Comments: Unable to read or assay due to color interference. Specific [place] 1.023 (Normal) Range: 1.005-1.030 55-Cgs-726298:51 HCG Qualitative, Serum (58345) Comments: PATIENT NOT FASTINGPERFORMED BY: [place] 4778470 [facility] [id number] hCG,Beta Subunit,Qual,Serum Negative m[iU]/mL (Normal) :51 serum free light chains Comments: PATIENT NOT FASTINGPERFORMED BY: [employer] Dyfdpw9090 [facility] [id number] (05159) [place]/Lambda Ratio,S 1.97 (Abnormal) Range: 0.26-1.65 Free Lambda Lt Chains,S 16.13 mg/L (Normal) Range: 5.71-26.30 Free [place] Lt Chains,S 31.85 mg/L (Abnormal) Range: 3.30-19.40 49-Svi-667482:51 urine immunofixation (20348) Comments: PATIENT NOT FASTINGPERFORMED BY: [employer] Eshvoy8554 [facility] [id number] IRWIN Interpretation:U UPEIP (Normal) Comments: No monoclonality detected. :51 serum immunofixation (06786) Comments: PATIENT NOT FASTINGPERFORMED BY: [employer] Gdujxn9632 [facility] [id number] Immunoglobulin M, Qn, Serum 68 mg/dL (Normal) Range: 40-230 Immunoglobulin A, Qn, Serum 192 mg/dL (Normal) Range: 91-414 Immunoglobulin G, Qn, Serum 1229 mg/dL (Normal) Range: 700-1600 Immunofixation Result, Serum IFENOR (Normal) Comments: An apparent normal immunofixation pattern. :51 UPEP (83268) Comments: PATIENT NOT FASTINGPERFORMED BY: VungleChilton Memorial HospitalScckxb6790 [facility] [id number] Please note: SPRCS (Normal) Comments: Protein electrophoresis scan will follow via computer, mail, orcourier delivery. M-Rene, % Not Observed % (Normal) Gamma Globulin, U 12.1 % (Normal) Beta Globulin, U 23.3 % (Normal) Doqdb-1-Tvfielab, U 28.7 % (Normal) Lxxck-7-Trpjyrxl, U 4.1 % (Normal) Albumin, U 31.8 % (Normal) Protein,Total,Urine 42.0 mg/dL (Abnormal) Range: 0.0-15.0 :51 P-ANCA & C-ANCA (ANCA Comments: PATIENT NOT FASTINGPERFORMED BY: [employer] Aavwvb9417 [facility] [id number] PROFILE) 41009 x2 and 01586 x2 Mitochondrial (M2) Antibody <20.0 {Units} (Normal) Range: 0.0-20.0 Comments: Negative 0.0 - 20.0 Equivocal 20.1 - 24.9 Positive >24.9 . Mitochondrial (M2) Antibodies are found in 90-96% of patients with primary biliary cirrhosis. 37-Zab-192451:51 C-REACT PROT HIGH SENS(hsCRP) Comments: PATIENT NOT FASTINGPERFORMED BY: [employer] [facility] [id number] (07644) C-Reactive Protein, Cardiac 94.10 mg/L (Abnormal) Range: 0.00-3.00 Comments: Relative Risk for Future Cardiovascular Event Low <1.00 Average 1.00 - 3.00 High >3.00 78-Cop-657674:32 DNA ANTIBODY-NATV/DBL ST (42433) Comments: PATIENT NOT FASTINGPERFORMED BY: [employer] Nsrxyu8149 [facility] [id number] test code 549689 Anti-DNA (DS) Ab Qn <1 {IU/mL} (Normal) Range: 0-9 Comments: Negative <5 Equivocal 5 - 9 Positive >9 31-Axh-946932:32 MICROALBUMIN: CREATININE Comments: PATIENT NOT FASTINGPERFORMED BY: [employer] Dnpzci2336 [facility] [id number] Information: [id number] RATIO (49562) AND (84566) Microalb/Creat Ratio 28.7 {mg/g_creat} (Normal) Range: 0.0-30.0 Microalbumin, Urine 76.1 ug/mL (Abnormal) Range: 0.0-17.0 Creatinine, Urine 265.3 mg/dL (Normal) Range: 16.0-327.0 07-Rvq-304672:32 RPR (RAPID PLASMA REAGIN) Comments: PATIENT NOT FASTINGPERFORMED BY: VungleChilton Memorial HospitalJaqqls0543 [facility] [id number] (35347) RPR Non Reactive (Normal) 11-Mfc-612561:26 Systemic Lupus Profile A Comments: PATIENT NOT FASTINGPERFORMED BY: [facility]6370 [facility] [id number] Information: [id number] Anti-DNA (DS) Ab Qn <1 {IU/mL} Range: 0-9 (Normal) Comments: Negative <5 Equivocal 5 - 9 Positive >9 Sjogren's Anti-SS-B 0.4 {AI} (Normal) Range: 0.0-0.9 Sjogren's Anti-SS-A <0.2 {AI} (Normal) Range: 0.0-0.9 Antichromatin Antibodies 0.3 {AI} (Normal) Range: 0.0-0.9 RA Latex Turbid. 13.0 {IU/mL} Range: 0.0-13.9 (Normal) Tariq Antibodies <0.2 {AI} (Normal) Range: 0.0-0.9 WATCH LEADER Antibodies 2.7 {AI} Range: 0.0-0.9 (Abnormal) Written Authorization WAR (Normal) Comments: PATIENT NOT FASTINGPERFORMED BY: [facility]6370 [facility] [id number] 0:26 Comments: Written Authorization Received.Authorization received from MICHELLE REAVES MD [id number] by Devi Biswas 64-Neu-149370:26 EB ANTIBODY VIRAL CAPSID Comments: PATIENT NOT FASTINGPERFORMED BY: [facility]6370 [facility] [id number] (82162) X2 Interpretation: SPRCS (Normal) Comments: EBV Interpretation [...] <36.0 Equivocal 36.0 - 43.9 Positive >43.9 63-Mre-936905:26 CALCIFIDIOL (86291) VIT D 25 Comments: PATIENT NOT FASTINGPERFORMED BY: [employer] Kgmtnw9518 [facility] [id number] Vitamin D, 25-Hydroxy 48.4 ng/mL (Normal) Range: 30.0-100.0 Comments: Vitamin D deficiency has been defined by the [place] ofPremier Health Atrium Medical Centercine and an Endocrine Society practice guideline as alevel of serum 25-OH vitamin D less than 20 ng/mL (1,2).The Endocrine Society went on to further define vitamin Dinsufficiency as a level between 21 and 29 ng/mL (2).1. IOM ([place] of Medicine). 2010. Dietary reference intakes for calcium and D. [place]: The National Academies Press.2. Clari MF, Jose NC, sAh NETTLES, et al. Evaluation, treatment, and prevention of vitamin D deficiency: an Endocrine Society clinical practice guideline. JCEM. 2010; 96(7):1911-30. 92-Uya-943940:26 Folate (11718) Comments: PATIENT NOT FASTINGPERFORMED BY: MyBeautyCompareBeaumont Hospital6370 [facility] [id number] Folate (Folic Acid), Serum 8.4 ng/mL (Normal) Comments: A serum folate concentration of less than 3.1 ng/mL isconsidered to represent clinical deficiency. 02-Sfr-393675:26 VITAMIN B-12 (CYANOCOBALAMIN) Comments: PATIENT NOT FASTINGPERFORMED BY: MyBeautyCompareBeaumont Hospital6370 [facility] [id number] (46949) Vitamin B12 280 pg/mL (Normal) Range: 211-946 05-Ukx-347533:26 TSH (19379) Comments: PATIENT NOT FASTINGPERFORMED BY: [facility] Nyoikn2108 [facility] [id number] TSH 1.730 {uIU/mL} (Normal) Range: 0.450-4.500 53-Esx-237415:26 SED RATE ERYTHROCYTE (86037) Comments: PATIENT NOT FASTINGPERFORMED BY: [facility] Enljzc2002 [facility] [id number] Sedimentation Rate-Westergren 48 mm/h (Abnormal) Range: 0-32 80-Knt-310908:26 RHEUMATOID FACTOR-QUANT (27040) Comments: PATIENT NOT FASTINGPERFORMED BY: [facility] Lqbmpp0563 [facility] [id number] RA Latex Turbid. 13.3 {IU/mL} (Normal) Range: 0.0-13.9 73-Ktn-648521:26 METABOLIC PANEL, Comments: PATIENT NOT FASTINGPERFORMED BY: Lab[facility] Hospital6370 [facility] [id number] Information: [id number] COMPREHENSIVE (44489) ALT (SGPT) 21 [iU]/L (Normal) Range: 0-32 [...] mg/dL (Abnormal) Range: 65-99 :26 C-REACTIVE PROTEIN (76377) Comments: PATIENT NOT FASTINGPERFORMED BY: [facility]ungleFour Corners Regional Health CenterIbtscu9592 [facility] [id number] C-Reactive Protein, Quant 157.4 mg/L (Abnormal) Range: 0.0-4.9 :26 CBC (AUTO) (09723) Comments: PATIENT NOT FASTINGPERFORMED BY: VungleChilton Memorial HospitalRdqzli1124 [facility] [id number] Platelets 275 {x10E3/uL} (Normal) Range: 150-379 RDW 13.4 % (Normal) Range: 12.3-15.4 MCHC 33.9 g/dL (Normal) Range: 31.5-35.7 MCH 29.6 pg (Normal) Range: 26.6-33.0 MCV 87 fL (Normal) Range: 79-97 Hematocrit 39.2 % (Normal) Range: 34.0-46.6 Hemoglobin 13.3 g/dL (Normal) Range: 11.1-15.9 RBC 4.50 {x10E6/uL} (Normal) Range: 3.77-5.28 WBC 13.8 {x10E3/uL} (Abnormal) Range: 3.4-10.8 :26 KWAN (ANTINUCLEAR ANTIBODY) Comments: PATIENT NOT FASTINGPERFORMED BY: VungleChilton Memorial HospitalDniwhk2817 [facility] [id number] (43561) KWAN Direct Positive (Abnormal) 90-Kkn-211101:21 Sed Rate Erythrocyte (63785) Comments: PATIENT NOT FASTINGPERFORMED BY: [employer] Czylbw4873 [facility] [id number] Sedimentation Rate-Westergren 20 mm/h (Normal) Range: 0-32 99-Xpg-422336:21 Metabolic Panel, Comprehensive Comments: copy to Dr. sanchez; PATIENT NOT FASTINGPERFORMED BY: [employer]6370 [facility] [id number] (41070) ALT (SGPT) 23 [iU]/L (Normal) Range: 0-32 [...] Glucose, Serum 112 mg/dL (Abnormal) Range: 65-99 93-Ssk-126427:21 CBC, Platelets & Auto Comments: PATIENT NOT FASTINGPERFORMED BY: [employer]70 [facility] [id number] Information: [id number] Diff (46271) Immature Grans (Abs) 0.0 {x10E3/uL} (Normal) Range: [...] 3.77-5.28 WBC 11.0 {x10E3/uL} (Abnormal) Range: 3.4-10.8 76-Zjc-213082:21 Lipase (48806) Comments: PATIENT NOT FASTINGPERFORMED BY: [facility] Fywiql1512 [facility] [id number] Lipase, Serum 33 U/L (Normal) Range: 0-59 81-Inu-008740:23 GALLBLADDER See Note (Normal) Comments: Test performed at:[facility] [address] [place], [place] [address] Comments: Patient: SANDRA RATLIFF : 1980 (34/F) Acct Num: [id number] Phys: Yohan HARGROVE,Vi Unit Num: [id number] [place] [facility] [place]: [id number] Received: 02/02/15 154 Spec Type: GALL BLADDE [...] average thickness andis free of mass lesions. Photoresist Printer sections of the gallbladder and the cystic duct are submitted in one cassette. / AM: 02/03/15 TC:3 CPT: 8 8304 HEADER OPERATION: Lap, cholecystectomy PRE-OP DIAGNOSIS: Calculus of gallbladder with acute cholecystitis TISSUE SUBMITTED: Gallbladder MICROSCOPIC DESCRIPTION Slides are reviewed. MICROSCOPIC DIAGNOSIS Gallbladder, cholecystectomy: Chronic cholecystitis and cholelithiasis. AM: 02/04/15 Signed Tr [facility] 02/04/15 <signature on file> 91-Bkx-642937:10 ,Urine Comments: Test performed at:[facility] [address] [place], [place] [address] ; ordered by another doctor HCGUQUAL Negative {Negative} (Normal) Comments: Very dilute urine specimens, as indicated by a low specificgravity, may not contain sales representative education courses levels of hCG.If is still suspected, a first morning urinespecimen should be collected 48 hours later and tested. :45 Basic Metabolic Profile (BMP) Comments: Test performed at:[facility] [address] [place] [address] GAP 10 (Normal) Range: 5-15 [...] Comments: Please note revised CREATININE reference range fpzypddoo03/22/2015. BUN 13 mg/dL (Normal) Range: 7-18 GLU 112 mg/dL (Abnormal) Range: 70-110 Comments: Fasting Glucose result from 110 to <126 mg/dLsuggests IMPAIRED HOMEOSTASIS per A.D.A. criteria. 41-Mlb-76620:45 CBC W/Diff, Automated Comments: Test performed at:[facility] [address] [place] [address] Absolute Lymph 4.26 {X10_3/ul} (Normal) [...] Range: 4.4-11.0 :45 Lipase Comments: Test performed at:[facility] [address] [place], [place] [address] LIPASE 136 U/L (Normal) Range: 73-393 :45 Liver Profile Comments: Test performed at:[facility] [address] [place] [address] D BILI < 0.05 mg/dL [...] 02/01/15How was Urine Obtained? CLEAN CATCHTest performed at:[facility] [address] [place] [address] HCGUQUAL Negative {Negative} (Normal) Comments: Very dilute urine specimens, as indicated by a low specificgravity, may not contain sales representative education courses levels of hCG.If is still suspected, a first morning urinespecimen should be collected 48 hours later and tested. :45 Urinalysis, Complete Comments: Order Date: 02/01/15How was Urine Obtained? CLEAN CATCHTest performed at:[facility] [address] [place] [address] MUCUS, URINE 0 SEEN {/hpf} (Normal) BACTERIA [...] Clear (Normal) COLOR Yellow (Normal) :45 CALCIFIDIOL (63589) VIT D 25 Comments: PATIENT NOT FASTINGPERFORMED BY: [facility] [id number] Vitamin D, 25-Hydroxy 42.1 ng/mL (Normal) Range: 30.0-100.0 Comments: Vitamin D deficiency has been defined by the [place] of[place] and an Endocrine Society practice guideline as alevel of serum 25-OH vitamin D less than 20 ng/mL (1,2).The Endocrine Society went on to further define vitamin Dinsufficiency as a level between 21 and 29 ng/mL (2).1. IOM ([place] [employer]). 2010. Dietary reference intakes for calcium and D. [place]: The National Academies Press.2. Clari MF, Jose LEES, Ash NETTLES, et al. Evaluation, treatment, and prevention of vitamin D deficiency: an Endocrine Society clinical practice guideline. JCEM. 2010; 96(7):1911-30. :45 Metabolic Panel, Basic Comments: PATIENT NOT FASTINGPERFORMED BY: [place] [id number] [facility] [id number] Information: [id number] (11140) Calcium, Serum 9.6 mg/dL (Normal) Range: 8.7-10.2 [...] Glucose, Serum 100 mg/dL (Abnormal) Range: 65-99 55-Pyk-872419:50 Rapid Flu (02860 x 2) Influenza A Ag neg (Normal) 08-Sep-20138:29 LIPID PANEL (60396) Comments: PATIENT WAS FASTINGPERFORMED BY: [address] [id number] Information: [id number] LDL/HDL Ratio 2.6 {ratio_units} (Normal) Range: 0.0-3.2 [...] Metabolic Panel, Comments: PATIENT NOT FASTINGPERFORMED BY: [place] [id number] [facility] [id number] Information: [id number] Comprehensive (21526) ALT (SGPT) 25 [iU]/L (Normal) Range: 0-32 [...] 87 mg/dL (Normal) Range: 65-99 12-Jan-20139:50 CALCIFEDIOL (42311) Comments: PATIENT NOT FASTINGPERFORMED BY: [facility] [address] [place] [id number] Vitamin D, 25-Hydroxy 42.6 ng/mL (Normal) Range: 30.0-100.0 Comments: Vitamin D deficiency has been defined by the [place] of[place] and an Endocrine Society practice guideline as alevel of serum 25-OH vitamin D less than 20 ng/mL (1,2).The Endocrine Society went on to further define vitamin Dinsufficiency as a level between 21 and 29 ng/mL (2).1. IOM ([place] [employer]). 2010. Dietary reference intakes for calcium and D. [place]: The National Academies Press.2. Clari MF, Jose [place], Ash NETTLES, et al. Evaluation, treatment, and prevention of vitamin D deficiency: an Endocrine Society clinical practice guideline. JCEM. 2010; 96(7):1911-30. 04-Rjo-269775:08 CATU tDOP 108 ug/L (Normal) tDOP24 255 {ug/24_hr} (Normal) Range: 0-510 Comments: TESTING PERFORMED AT [facility]. ORIGINAL REPORT ON FILE IN LAB [...] :08 MISC . (Normal) Comments: TEST RESULT [id number]-Dgnbyskgllambenkfbk, MS 17 [place] Pregnenolone, Serum MS < 10 ng/dL Reference Range: Adults: 53 - 357 TESTING PERFORMED AT [facility]. ORIGINAL REPORT ON FILE IN LAB CONTAINS ADDITIONAL TEST SITE INFORMATION. :08 PROL 10.2 ng/mL (Normal) Range: 4.8-23.3 :08 TESTOF <0.2 pg/mL (Normal) Range: 0.0-2.2 Comments: Performed at: [address] [id number] Director: Davide Jordan MD, Phone: [phone] at: [address] [id number] Director: Andra Reyes MD, Phone: [phone] 99-Nfl-369631:08 VMA tVMA24 3.1 {mg/24_hr} (Normal) Range: 0.0-7.5 [...] 7-18 GLU 92 mg/dL (Normal) Range: 70-110 16-Enn-575364:56 VIT D,25 11169 33.7 ng/mL (Normal) Range: 30.0-100.0 Comments: Vitamin D deficiency has been defined by the [place] [employer] and an Endocrine Society practice guideline as alevel of serum 25-OH vitamin D less than 20 ng/mL (1,2).The Endocrine Society went on to further define vitamin Dinsufficiency as a level between 21 and 29 ng/mL (2).1. IOM ([place]). 2011. Dietary reference intakes for calcium and D. [place]: The National Academies Press.2. Clari MF, Jose [place], Ash NETTLES, et al. Evaluation, treatment, and prevention of vitamin D deficiency: an Endocrine Society clinical practice guideline. JCEM. 2010; 96(7): 1911-30.Performed at: [address] [id number] Director: Andra Reyes MD, Phone: [phone] 04-Yxe-097387:57 MICROALB:CRE UR MALB:CREAT 25.7 {mg/g_CRE} (Normal) MICROALBUMIN,UR 40.9 mg/L (Normal) UR CREAT 159.1 mg/dL (Normal) 0-Aie-130467:09 MYOCARD PERF STRESS/REST MULT Radiology Report See Note (Normal) Comments: EXERCISE MYOCARDIAL PERFUSION SCAN UDKMKHJHjfvys-ktfv-oyg with a history of hypertension and abnormal EKG. HYJRYYZPB09 mCi of Sestamibi was injected at rest. [...] HARGROVE,Stephane on 03/10/11 1446 Sign by: Tamar HARGROVE,Neffs 3-Tdj-[id number]: VIT D,25 63973 28.7 ng/mL Range: 32.0-100.0 10 (Abnormal) Comments: Recent studies consider the lower limit of 32.0 ng/mL to guy threshold for optimal health.Rakan B[place]ENS. J Nutr. 2004;135(2):317- 22.Performed at: - [address] [id number]Lab Director: Andra Reyes MD, Phone: [phone] TSH 2.62 {uIU/mL} Range: 0.358-3.74 :41 (Normal) [...] BETA STREPTOCOCCUS :28 Rapid Strep Test, Office (77671) Rapid Strep Test, Office Negative (Normal) :39 HCG QUANT. 50328 m[iU]/mL (Abnormal) :39 ,SERUM HCGSQUAL SeeNote m[iU]/mL [...] of hypertension Planned Observations Food Allergy Profile (65750)Indication: Allergic to food (Renamed from Food allergy) On: 28 Request T4, FREE (THYROXINE) (94536)Indication: Abnormal thyroid blood test On: : Request TSH (46737)Indication: Abnormal thyroid blood test On: :22 Request CALCIFIDIOL (47521) VIT D 25Indication: Vitamin D deficiency, unspecified On: : Request CBC (Auto) (36021)Indication: KWAN positive On: : Request Metabolic Panel, Comprehensive (32750)Indication: KWAN positive On: : Request Thin prep Pap (96915) (no STD testing)Indication: Well woman exam (Renamed from Encounter for well woman exam) On: :13 Request PT (Prothrobim Time) (46891)Indication: Preop examination On: Request CBC WITH MANUAL DIFF (05700)Indication: Preop examination On: Request T4, FREE (THYROXINE) (18062)Indication: Abnormal thyroid blood test On: Request TSH (88865)Indication: Abnormal thyroid blood test On: Request CALCIFIDIOL (59770) VIT D 25Indication: Vitamin D deficiency, unspecified On: Request MICROALBUMIN: CREATININE RATIO (86158) AND (97490)Indication: Proteinuria On: Request METABOLIC PANEL, COMPREHENSIVE (22588)Indication: Antiphospholipid syndrome On: Request CBC with auto diff (63669)Indication: Antiphospholipid syndrome On: Request LIPOPROTEIN, BLD, BY NMR (34916)Indication: Hyperlipidemia, unspecified hyperlipidemia type On: Request MICROALBUMIN: CREATININE RATIO (99819) AND (04448)Indication: Proteinuria On: :10 Request LEUKOCYTE COUNT, FECAL (69462)Indication: Abdominal pain, acute On: 76-Kgp-216581:10 Request OVA & PARASITE DIR SMEAR (64612)Indication: Abdominal pain, acute On: : Request Clostridium difficile Toxin A+B, EIA (62520)Indication: Abdominal pain, acute On: 70-Hsc-065082:10 Request AUTUMN CULTURE-STOOL (23843)Indication: Abdominal pain, acute On: 54-Eac-243705:10 Request Rapid Flu (64869 x 2)Indication: Flu-like symptoms On: : Request EB ANTIBODY NUCLR ANTIGN (39261)Indication: Fatigue On: 36-Ine-281254: Request Rapid Flu (56429 x 2)Indication: Fever and chills On: 09-Vry-789870:00 Request POTASSIUM SERUM (72075)Indication: Hypokalemia On: 6-Dgg-950123:48 Request PROLACTIN (20047)Indication: Amenorrhea On: :56 Request DHEA-S (DEHYDROEPIANDROSTERONE SULFATE) (76832)Indication: Amenorrhea On: :55 Request TESTOSTERONE FREE (61737)Indication: Amenorrhea On: :55 Request 17-HYDROXYPREGNENOLONE (13763)Indication: Amenorrhea On: :52 Request CORTISOL FREE (95245)Indication: Elevated blood-pressure reading without diagnosis of hypertension On: :49 Request METANEPHRINES - URINE (41199)Indication: Elevated blood-pressure reading without diagnosis of hypertension On: :49 Request CATECHOLAMINES TOTAL, URINE (56330)Indication: Elevated blood-pressure reading without diagnosis of hypertension On: :49 Request URINE VMA (55277)Indication: Elevated blood-pressure reading without diagnosis of hypertension On: :49 Request Metabolic Panel, Basic (94757)Indication: Stress reaction On: :29 Request MICROALBUMIN: CREATININE RATIO (00106) AND (98549)Indication: Unspecified Diagnosis On: 68-Nuy-232996:18 Request CALCIFEDIOL (08056)Indication: Elevated blood-pressure reading without diagnosis of hypertension On: 13-Zjq-319408:14 Request TSH (19749)Indication: Elevated blood-pressure reading without diagnosis of hypertension On: 87-Hsv-909208:13 Request METABOLIC PANEL, COMPREHENSIVE (41086)Indication: Nausea On: 13-Eqr-459656:40 Request Lipase (49474)Indication: Nausea On: 69-Uyn-825388:40 Request TEST - SERUM QUANTITATIVE (HCG) (22009)Indication: Amenorrhea On: :40 Request Amylase (25358)Indication: Nausea On: 63-Btz-367410:40 Request METABOLIC PANEL, COMPREHENSIVE (94036)Indication: Palpitations On: :47 Request CBC WITH MANUAL DIFF (66680)Indication: Palpitations On: :47 Request TSH (26667)Indication: Palpitations On: 05-Ebz-19183:47 Request AUTUMN CULTURE-OTHER (13867)Indication: Acute pharyngitis On: 19-Nkw-05955:28 Request BHCG (HUMAN CHORIONIC GONADOTROPIN - BETA) (59275)Indication: Amenorrhea On: 10-Cqa-438740:22 Request HCG (HUMAN CHORIONIC GONADOTROPIN) (13987)Indication: Amenorrhea On: 94-Kxs-035794:22 Request Planned Encounters Medical; [facility] 2 Month FU - On: 03-Jul-2018 8:30 [facility] Michelle Reaves MD, MD, Dana M Planned Procedures Flu Vaccine (Quadrivalent) On: 02-Jun-2018 Intent 93532Rd: Rafael Tariq Comments: Flulaval Quad FS12T04483.5mlL dltd, IMMorgan ROCKY Tariq signed MRI OF LEFT KNEE WITHOUT CONTRAST On: 20-Feb-2018 Intent (12973)By: Michelle Reaves MD Comments: will plan for 4 weeks. Michelle Reaves MD DRAIN/INJECT MAJOR JOINT OR BURSA On: 10-Feb-2018 Intent (90684)By: Michelle Reaves MD Comments: 2 cc Marcaine lot# [id number] 1 cc kenalog lot# [id number] rte: left knee intra articular dose: as above given by:Dr. eRaves ABN signedER, E MERCHANT Michelle Reaves MD Radiology - Knee - Left - Weight On: 07-Feb-2018 Intent BearingBy: Michelle Reaves MD, MD, Dana M SPECIMEN HNDLNG/TRNSPRT, OFFC > On: 18-Jun-2016 Intent LAB (31042)By: Michelle Reaves MD, MD, Dana M SPECIMEN HNDLNG/TRNSPRT, OFFC > On: 04-Jun-2016 Intent LAB (62537)By: Michelle Reaves MD, MD, Dana M Radiology - Small Bowel Series On: 18-Nov-2015 Intent (45073)By: Michelle Reaves MD, MD, Dana M Radiology [...] Lenz ELECTROCARDIOGRAM, COMPLETE (ECG) On: 19-Jan-2014 Intent (62419)By: Michelle Reaves MD, MD, Dana M Eprescribed prescriptions On: 02-Jun-2013 Intent (G8553)By: Kathy Sesay LPN EKG (03596)By: Michelle Reaves MD On: 27-Jan-2013 Intent Michelle Reaves MD Comments: see scanned document of test done to see results reviewed today with patient Eprescribed prescriptions On: 27-Jan-2013 Intent (G8553)By: Kathy Sesay LPN TDAP VACCINE >7 IM (74160)By: On: 30-Apr-2011 Intent Michelle Reaves MD, MD, Dana M FLU VAC, SPLIT, >3 YEARS, On: 30-Apr-2011 Intent INTRAMUSC (08060)By: Ferny, Comments: Lot #:[id number] date:mount given:0.5mlRoute: IMSite given:left deltoid Given by: Adam REYEZAINE IMMUNIZ ADMNIN, 1 VAC, SNGL/COMBO On: 30-Apr-2011 Intent (87845)By: PHILLIP Leigh Nuclear Stress Test/Stress On: 05-Mar-2011 Intent SPECT/TreadmillBy: Kirsten Arias CNP ELECTROCARDIOGRAM, COMPLETE (ECG) On: 05-Mar-2011 Intent (10652)By: Kirsten Arias CNP Bio Z (73474)By: Kirsten Arias CNP On: 05-Mar-2011 Intent Holter Moniter (79434)By: Pop On: 29-Nov-2010 Intent DO, Atiya EKG (33911)By: Indu aMi On: 29-Nov-2010 Intent E MERCHANT Comments: nsr IVCD - RBBB Planned Medications [...] Advance Directives Name Dates Details Immunization Registry [place] - Effective on Effective: 05-Jul-201707/05/2017. Expiration date [...] fever. Note for Insect bite/sting: was in [place]- she got lots of bites not sure [...] and low grade fever, elevated CRP pos WATCH LEADER, elevated WBC on the rise, protein in [...] l ow grade fever, elevated CRP pos WATCH LEADER, elevated WBC on the rise, protein in [...] of forearm (943.01) [facility] Payers [facility] Robin RATLIFF; a guarantor
--- OUTSIDE RECORDS SUMMARY | 2018-08-05 17:35 | XMS RPT_ITS ---
:1980 Author Organization [place] Support Name Relationship Address Phone STEVE BURGOS/BALTAZAR Unavailable [address] + [place] [address] LANNY, JACY Unavailable [address] + [place] [address] NORWESSCH Unavailable [address] + [place] [address] DAILYShari, STEVE/BALTAZAR Unavailable [address] + [place] [address] LANNY, JACY Unavailable [address] + [place] [address] NORWESSCH Unavailable [address] + [place] [address] DAILYShari, STEVE/BALTAZAR Unavailable [address] + [place] [address] LANNY, JACY Unavailable [address] + [place] [address] NORWESSCH Unavailable [address] + [place] [address] DAILYShari, STEVE/BALTAZAR Unavailable [address] + [place] [address] LANNY, JACY Unavailable [address] + [place] [address] NORWESSCH Unavailable [address] + [place] [address] HENLYE, STEVE/BALTAZAR Unavailable [address] + [place] [address] LANNY, JACY Unavailable [address] + [place] [address] NORWESSCH Unavailable [address] + [place] [address] AUBREY, STEVE/BALTAZAR Unavailable [address] + [place] [address] LANNY, JACY Unavailable [address] + [place] [address] NORWESSCH Unavailable [address] + [place] [address] HENLYE, STEVE/BALTAZAR Unavailable [address] + [place] [address] LANNY, JACY Unavailable [address] + [place] [address] NORWESSCH Unavailable [address] + [place] [address] HENLYE, STEVE/BALTAZAR Unavailable [address] + [place] [address] LANNY, JACY Unavailable [address] + [place] [address] NORWESSCH Unavailable [address] + [place] [address] HENLYShari, STEVE/BALTAZAR Unavailable [address] + [place] [address] LANNY, JACY Unavailable [address] + [place] [address] [facility] Unavailable [address] + [place] [address] Care Team Providers Name Role Phone Rosalva Styles MD Attending Unavailable Rosalva Styles MD Referring Unavailable Rosalva Styles MD Consulting Unavailable Ofe Jay Attending Unavailable Rosalva Styles Referring Unavailable Ofe Jay Attending Unavailable Ofe Jay Referring Unavailable Rosalva Styles Primary Care Unavailable Bonezzi, Rosalva Attending Unavailable Bonezzi, Rosalva Referring Unavailable Bonezzi, Rosalva Primary Care Unavailable Bonezzi, Rosalva Attending Unavailable Bonezzi, Rosalva Referring Unavailable Bonezzi, Rosalva Primary Care Unavailable Bonezzi, Rosalva Attending Unavailable Bonezzi, Rosalva Referring Unavailable Bonezzi, Rosalva Primary Care Unavailable Chicorelli, Ofe Attending Unavailable Bonezzi, Rosalva Attending Unavailable Bonezzi, Rosalva Referring Unavailable Bonezzi, Rosalva Primary Care Unavailable Chicorelli, Ofe Attending Unavailable Bonezzi, Rosalva Referring Unavailable Chicorelli, Ofe Attending Unavailable Chicorelli, Ofe Referring Unavailable Bonezzi, Rosalva Primary Care Unavailable PROBLEMS PROBLEMS DATE TYPE CONDITION / CODE ATTENDING STATUS SOURCE 07/29/2018 Unknown Z98.890 - Other Chicorelli, Active [place] specified [facility] postprocedural Hospital states / Repository Z98.890(ICD-10) 06/20/2018 Unknown G89.18 - Other acute Chicorelli, Active [place] postprocedural pain [facility] / G89.18(ICD-10) Hospital Repository 04/05/2018 Unknown R76.8 - Other Bonezzi, Rosalva Active [place] specified abnormal [facility] immunological Hospital findings in serum / Repository R76.8(ICD-10) 04/05/2018 Unknown E55.9 - Vitamin D Bonezzi, Rosalva Active [place] deficiency, Community unspecified / Hospital E55.9(ICD-10) Repository 04/05/2018 Unknown R94.6 - Abnormal Bonezzi, Rosalva Active [place] results of thyroid Community function studies / Hospital R94.6(ICD-10) Repository 04/05/2018 Unknown Z91.018 - Allergy to Bonezzi, Rosalva Active [place] other foods / Community Z91.018(ICD-10) Hospital Repository 04/01/2018 Unknown M25.562 - Pain in Bonezzi, Rosalva Active [place] left knee / Community M25.562(ICD-10) Hospital Repository PROCEDURES PROCEDURES No Procedure Records FoundRESULTS RESULTS INITAL EVALUATION (1) Observed: 07/14/2018 Status: F Source: [place] - PT 4:54 PM [facility] [place] [address] / REHABILITATION SERVICES INITIAL EVALUATION MR#: [id number] Acct: [id number] Name: ILA CA Rep #: [id number] : 1980 38 From: Michelle Hayes DPT Referring Dr.: Ofe Jay DO Status: REG RCR Insurance: [facility] SELF PAY INSURANCE Patient's Visit Information ILA CA is a 38 year old F referred to Physical Therapy by Ofe Jay DO with a diagnosis of DSA of left knee. Date of Evaluation: 07/14/18 Physical Therapist: Michelle Hayes DPT - Visit Plan Frequency: 2x /Week Duration: 4 Weeks Plan: Focus on LE and core s/s. - Subjective Findings: Left knee surgery Jun 20, [address] Jay- cleaned out the knee. Getting into the car this summer and felt a pop in Mid January. Tried conservative care and it didn't get better. Went straight home from surgery- split level house- lives with and son (7)- does not have to carry him. No problems getting around the house at this point. The knee is doing pretty well- still swollen- did have some popping and clicking which has decreased. The pain she is around the incision site. Sore and tender to touch. Feels like she is walking around well but when she sits for to long she needs to keep it moving. The only problems she is having is squatting and bending down- getting something up off the floor. Worst: 5/10 Agg: bending or squatting down. Best: 0/10 Eases: rest. No radiating pain- no N/T. Sutures are out- did not have x-rays since surgery. Told her to come to therapy. 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 Return to Md in about 2 weeks. PMHx/Meds: Lovenox injections 6 weeks- due to her blood clotting disorder. Sleep: not disturbed. Feels that she is 75% back to normal. - Objective Posture: FH, RS- does correct with VC's but does not maintain. Gait: no deviation noted. Stairs: asc/desc 8 recip with no HR- ascend increased push off right more than left and with descent less control with WB and eccentric lowering on the left. HR/TR: able without incidence. SLS: 3 sec then LOB on the left 30 sec on the right. Palpation: tender along lateral joint line. Sensation/Reflex: WNL. Incisions: well healed- mild scar tissue. ROM: 0-120 degrees with tightness at end range. Strength: Ankle: 5/5, Knee: extn: 4+/5 flexion: 4/5, hip: flexion: 4/5, abd: 4/5, Glut strength tested in clam position: 4/5, extn: 4/5, Add: 4+/5 Core: fair. Flex: HS: mild, Gastroc: mild - Goals Goal 1:: Patient will be I with HEP and progression Goal Time Frame: 4-6 Weeks Goal 2:: Patient will asc/desc 8 stairs with no HR and good consistent pattern Goal Time Frame: 4-6 Weeks Goal 3:: Patient will SLS for 15 seconds on Left LE Goal Time Frame: 4-6 Weeks Goal 4:: Patient will demo 4+/5 strength in left LE Goal Time Frame: 4-6 Weeks Goal 5:: Patient will maintain proper posture t/o tx session to demo increased core s/s. Goal Time Frame: 4-6 Weeks - Rehabilitation Potential Physical Therapy Diagnosis: Patient presents with hypomobility- she has decreased strength and muscular endurance leading to decreased participation in ADL's and increased pain. Rehabilitation Potential: Good - Anticipated Interventions Patient/Client Instruction: Educate patient on: Benefits of Fitness Program Therapeutic Exercise to Include: Strength training, Endurance training, Balance training, Body mechanics, Postural training, Flexibilty training, Dynamic Lumbar Stabilization For the Purpose of:: To improve muscle performance and motor function TENS: Yes Cryotherapy (ice pack, ice massage): Yes Thermo therapy (hot pack): Yes Ultrasound (thermal/non thermal): No For the Purpose of:: To decrease pain Thank you for the opportunity to evaluate your patient. For Medicare and Medicare HMO plans, please review the plan of care and approve it. It will need to be FAXED BACK to us at [phone] for Medicare purposes. For Medicare only, by signing this I certify the plan of care. Please let me know if there are questions or concerns regarding this plan of care. Physician Signature: Date: <Electronically signed by Michelle Hayes DPT> 07/14/18 1654 CC: Ofe Jay DO; Rosalva Styles MD ELR Signed ORTHOPEDIC VISIT Observed: 07/04/2018 Status: F Source: [place] REPORT 12:44 PM [facility] REPOSITORY [facility] [address] [place] [address] OFFICE VISIT Date of Service: 07/04/18 MR#: [id number] Acct: [id number] Name: ILA CA Rep #: [id number] : 1980 Provider: Ofe Jay DO Age/Sex: 38/F Location: [facility] Status: Signed Intake Vital Signs07/04/18 Body Mass Index (BMI) 50.1 Intake Visit Reasons: left knee Is patient in pain?: Yes Pain scale (1-10): 2 Allergies amoxicillin Allergy (Verified 05/21/18 13:35) Rash tobramycin Allergy (Verified 05/21/18 13:35) Other chlorhexidine Adverse Reaction (Verified 06/20/18 06:28) Rash Medications Cholecalciferol (VIT D3) [Vitamin D] 2,000 unit PO DAILY 02/01/15 [History Confirmed 06/20/18] Sertraline HCl [Zoloft] 100 mg PO DAILY 02/01/15 [History Confirmed 06/20/18] Spironolactone [Aldactone] 200 mg PO DAILY 02/01/15 [History Confirmed 06/20/18] proMETHazine tablet [Phenergan] 25 mg PO Q6H PRN PRN #10 tab 02/01/15 [Rx Confirmed 06/20/18] Aspirin E.C. [Ecotrin] 81 mg PO DAILY@0800 02/02/15 [History Confirmed 06/20/18] Hydrocodone Bitart/Apap 5-325 [[place] 5/325] 1 - 2 tab PO Q4H PRN PRN #12 tab 11/17/15 [Rx Confirmed 06/20/18] Ondansetron [Zofran Odt] 4 mg PO Q8H PRN PRN #10 tab 11/17/15 [Rx Confirmed 06/20/18] enoxaparin 40 mg/0.4 mL subcutaneous syringe 40 mg SC DAILY PRN #4 ml 05/13/18 [Rx Confirmed 06/20/18] Hyoscyamine [Levsinex] 0.375 mg PO Q12 PRN 05/21/18 [History Confirmed 06/20/18] Inulin [Fiber Gummies] 4 gm PO DAILY 05/21/18 [History Confirmed 06/20/18] L.acidoph,Paracasei, B.lactis [Probiotic] 1 ea PO DAILY 05/21/18 [History Confirmed 06/20/18] Norgestimate-Ethinyl Estradiol [Previfem Tablet] 1 ea PO DAILY 05/21/18 [History Confirmed 06/20/18] Ranitidine [Zantac] 150 mg PO BID 05/21/18 [History Confirmed 06/20/18] PFSH Social History Smoking Status: Never smoker HPI left knee: Details: ILA CA is a 38 year old F here today for f/u 06/20 left knee scope. She is ambulating well with no gait abnormalities. She is still resting when she can and can complete ADLs. She is using otc nsaids and has normal swelling. Denies calf pain. She has some soreness under the patella, all her medial pain is gone. She has comfortable range of motion and can reach 100 with no problem. She has four weeks left on Lovenox. Ortho Exam Left Knee Date of Surgery: 06/20/18 Skin/Wound: Yes healing, Yes suture/lisbeth removed Contralateral Normal: Yes Swelling: Yes Homans Sign: No Knee ROM: Yes ROM-Extension -20 to 0, Yes ROM-Flexion 0-140 (100) Assessment AND Plan 1. Orthopedic aftercare Z47.89 Plan Patient is to remain on her Lovenox for another month. PT prescription for strengthening of her leg as well as general overall reconditioning. This note was generated with [employer] software. It may contain incorrect words, spelling, and punctuation that were not noted in checking the note before signing. Personally reviewed the surgical images if available, the surgery procedure and reviewed the post op care instructions. Monitor for signs of infection, redness, warmth, swelling in excess, drainage, opening of incision site/sites, and/or fever. Gave PT script today for the knee and reconditioning. Follow up in a month or sooner if pain, swelling, numbness or associated symptoms, or concerns develop. All questions answered. Patient in agreement of plan. Coding Level of Care Code Global Post Op Diagnoses Orthopedic aftercare Z47.89 07/04/18 1244 <Electronically signed by Ofe Jay DO> Date Ofe Jay DO Cosigner Signature: Date (if applicable) CC: OPERATIVE REPORT Observed: 06/23/2018 Status: F Source: [place] 12:17 PM [facility] REPOSITORY [facility] Medical Records Department [address] [place] [address] Operative Report 06/20/18 0730 MR#: [id number] Acct: [id number] Name: ILA CA Rep #: [id number] : 1980 38 From: Ofe Jay DO PCP: Rosalva Styles MD Status: [facility] [place] [facility] of Operation Date of Procedure: 06/20/18 Pre-Operative Diagnosis: left knee lateral meniscus tear, osteoarthritis Post-Operative Diagnosis: same Surgery/Procedure Performed:: salk, plm, pat chondroplasty, mfc and ltp chondroplasty mortuary beautician: Aman Lindsey Type of Anesthesia:: General Anesthesiologist: Buzz Collins Estimated Blood Loss (mL): minimal Fluids Replaced: 800cc lr Description of Procedure: Preop note Patient is a 38-year-old female with continued left knee pain and locking. She failed conservative treatment MRI of questionable for lateral meniscus tear possible medial meniscus tear as well and some thinning of her cartilage. Due to the instability and locking discussed treatment options with patient. Patient like to proceed with left knee arthroscopy. Risks benefits and alternatives surgery discussed with patient. Risks including but not limited to blood loss, blood clot, infection, neurovascular injury, failure procedure, loss of life and loss of limb. Patient is aware would like to proceed with left knee arthroscopy repair is indicated. These of the patient also has antiphospholipid antibody she is a higher risk for blood clots this was discussed in detail with family and PCP patient will start Lovenox this evening. Operative note Patient seen and examined preoperative holding area. Left knee was marked. Patient is brought to the operating room placed supine on the operating table. Sign, anesthesia, antibiotics were administered. Left knee was prepped and draped in usual sterile fashion with tourniquet on her upper thigh. All bony prominences well-padded SCDs placed on her contralateral limb. We marked out our bony landmarks for anterior lateral anterior and anterior medial portal placement. The left leg was then elevated exsanguinated tourniquet was raised her pressure of 300 torr based on preoperative blood pressure. Timeout was performed. We then created her anterior lateral portal with an 11 blade. We began our diagnostic arthroscopy. There is grade 2 fibrillated changes on the inferior pole of her patella throughout. Her trochlea was intact. We then moved to the medial femoral medial joint line. Created an anterior medial portal under direct visualization. We able to debride back some of the synovium with a shaver for better visualization. We inserted a probe her medial meniscus was intact and stable stable to probing. She had some grade 2 changes of her medial femoral condyle on the more lateral aspect that was being abraded by her thickened medial plica that was resected. This is actually was causing some fibrillated some erosion of her nonweightbearing aspect for medial femoral condyle. ACL PCL were present within the notch. We then moved to the lateral joint line there is little bit of synovitis in the anterior lateral recess that was also resected back for better better visualization. She had a posterior horn lateral meniscus tear that was gently debrided back to a stable rim. We and she also had some grade 3 changes of her lateral tibial plateau and some unstable cartilage pieces that were debrided back gently with a shaver. We then reinserted a probe to ensure that she had good stable lateral meniscus remaining which she did have. We then gently debrided the inferior pole of the patella as she had some quite thickened and loose cartilage pieces at the inferior pole especially more laterally. The knee was then irrigated with copious amounts of sterile saline. The portals were closed with interrupted 4-0 nylon stitches sterile dressings were applied the tourniquet was deflated for total working time of 22 minutes. Patient tolerated procedure well there are no complication transferred recovery room in stable condition. Postoperative note Weight-bear as tolerated left leg Patient is to be given to family in 2 weeks at postop visit Remove dressings in 4 days apply Band-Aids Start Lovenox tonight This note was generated with [employer] software. It may contain incorrect words, spelling, and punctuation that were not noted in checking the note before signing. 06/23/18 1217 <Electronically signed by Ofe Jay DO> Date Ofe Jay DO CC: Ofe Jay DO; Rosalva Styles MD Signed DISCHARGE INSTRUCTION Observed: 06/20/2018 Status: F Source: [place] 8:01 AM [facility] REPOSITORY [facility] Medical Records Department [address] [place] [address] Instructions for Home/Discharge Instructions 06/20/18 0730 MR#: [id number] Acct: [id number] Name: ILA CA Rep #: [id number] : 1980 38 From: Ofe Jay DO PCP: Rosalva Styles MD Status: REG SDC Discharge Diet: No Restrictions - wbat left leg, remove dressings in 4 days and apply bandaids to incision sites, may get incision wet at that time, ankle pumps, ice, elevate toes above nose, start lovenox tonight, call with pain, numbness, tingling, calf pain or other concerns Discharge Activity: May Not Drive May shower in (days): 1 Ice area for (Minutes): 20 - Every hour while awake. Weight Bearing Status: Weight bearing as tolerated Keep extremity elevated above heart level: Operative Extremity Call your doctor if your incision/area has: Continuous Slow Oozing, Sudden Increased Bleeding, Increased Pain/ Swelling, Increased Redness, Foul Smelling Discharge Call your doctor if you observe: Fever of 101 or Higher, Coldness, Increased Pain, Numbness or Tingling, Change in Color, Calf discomfort Allergies/Adverse Reactions: Allergies amoxicillin Allergy (Verified 05/21/18 13:35) Rash tobramycin Allergy (Verified 05/21/18 13:35) Other chlorhexidine Adverse Reaction (Verified 06/20/18 06:28) Rash Medications to take at Discharge Cholecalciferol (VIT D3) [Vitamin D] 2,000 unit PO DAILY 02/01/15 Sertraline HCl [Zoloft] 100 mg PO DAILY 02/01/15 Spironolactone [Aldactone] 200 mg PO DAILY 02/01/15 proMETHazine tablet [Phenergan] 25 mg PO Q6H PRN PRN #10 tablet 02/01/15 Aspirin E.C. [Ecotrin] 81 mg PO DAILY@0800 02/02/15 Hydrocodone Bitart/Apap 5-325 [[place] 5/325] 1 - 2 tablet PO Q4H PRN PRN #12 tablet 11/17/15 Ondansetron [Zofran Odt] 4 mg PO Q8H PRN PRN #10 tablet 11/17/15 enoxaparin 40 mg/0.4 mL subcutaneous syringe 40 mg SC DAILY PRN #4 ml 05/13/18 Hyoscyamine [Levsinex] 0.375 mg PO Q12 PRN 05/21/18 Inulin [Fiber Gummies] 4 gm PO DAILY 05/21/18 L.acidoph,Paracasei, B.lactis [Probiotic] 1 each PO DAILY 05/21/18 Norgestimate-Ethinyl Estradiol [Previfem Tablet] 1 each PO DAILY 05/21/18 Ranitidine [Zantac] 150 mg PO BID 05/21/18 Hydrocodone Bitart/Apap 5-325 [[place] 5MG-325MG] 1 - 2 tablet PO Q6H PRN PRN 5 Days #40 tablet 06/20/18 The following prescriptions were given: Hydrocodone Bitart/Apap 5-325 [[place] 5MG-325MG] 1 - 2 tablet PO Q6H PRN PRN 5 Days #40 tablet PRN Reason: Pain Primary Care Physician: Rosalva Styles MD [Primary Care Provider] - Test Results: Test results from this visit will be discussed in further detail at your follow-up appointment, if applicable. Please Follow Up With: Ofe Jay DO - [phone] 06/20/18 0801 <Electronically signed by Ofe Jay DO> Date Ofe Jay DO CC: Rosalva Styles MD ,URINE Collected: 06/20/2018 Status: F Source: [place] 5:40 AM [facility] REPOSITORY Order Comment: Reason for Laboratory Test PRE-OP TYPE CODE TESTS RESULT OUT OF REFERENCE UNITS RANGE LAB L400.8000 Negative Normal HCGUQUAL Negative Result Comment: Very dilute urine specimens, as indicated by a low specific gravity, may not contain outside energy sales representatives levels of hCG. If is still suspected, a first morning urine specimen should be collected 48 hours later and tested. Performed By: #### L400.7600 #### [facility] [address] [place], [address] ORTHOPEDIC VISIT Observed: 05/06/2018 Status: F Source: [place] REPORT 4:35 PM [facility] REPOSITORY [facility] [address] [place] [address] OFFICE VISIT Date of Service: 05/06/18 MR#: [id number] Acct: [id number] Name: ILA CA Rep #: [id number] : 1980 Provider: Ofe Jay DO Age/Sex: 37/F Location: [facility] Status: Signed Intake Intake Visit Reasons: LEFT KNEE Is patient in pain?: Yes Allergies amoxicillin Allergy (Verified 05/06/18 15:24) Rash tobramycin Allergy (Verified 05/06/18 15:24) Other Medications Cholecalciferol (VIT D3) [Vitamin D] 2,000 unit PO DAILY 02/01/15 [History Confirmed 11/17/15] Norgestimate-Ethinyl Estradiol [Sprintec] 1 ea PO DAILY 02/01/15 [History Confirmed 11/17/15] Sertraline HCl [Zoloft] 50 mg PO DAILY 02/01/15 [History Confirmed 11/17/15] Spironolactone [Aldactone] 200 mg PO DAILY 02/01/15 [History Confirmed 11/17/15] proMETHazine tablet [Phenergan] 25 mg PO Q6H PRN PRN #10 tab 02/01/15 [Rx Confirmed 11/17/15] Aspirin E.C. [Ecotrin] 81 mg PO DAILY@0800 02/02/15 [History Confirmed 11/17/15] Dicyclomine HCl [Bentyl] 20 mg PO TID PRN #10 cap 11/17/15 [Rx] Hydrocodone Bitart/Apap 5-325 [[place] 5/325] 1 - 2 tab PO Q4H PRN PRN #12 tab 11/17/15 [Rx] Ondansetron [Zofran Odt] 4 mg PO Q8H PRN PRN #10 tab 11/17/15 [Rx] PFSH Social History Smoking Status: Never smoker HPI LEFT KNEE: Details: ILA CA is a 37 year old F here today for left knee pain. Patient notes that she has had left [...] of locking where she was unable to move her knee for 30 minutes- localized medially [...] at times. Denies numbness, tingling or other associated symptoms. ROS Const Reports system reviewed and no additional complaints, except as docu Eyes Reports system reviewed and no additional complaints, except as docu ENT Reports system reviewed and no additional complaints, except as docu Card Reports system [...] and no additional complaints, except as docu Endo Reports system reviewed and no additional complaints, [...] causing the locking. Her treatment options are do nothing, injection, VT-EYE eval or knee scope for debridement. We will discuss with Dr Styles regarding post op anticoagulant. Reviewed the pre-operative plans with the patient. Risks and benefits of the procedure were fully explained, including but not limited to infection, neurovascular injury, continued pain, arthritis, stiffness, need for further surgery, re-injury, DVT, PE, general risks of anesthesia, and loss of limb or life. The [...] Off vis,est,level 4 Diagnoses Left knee pain M25.562 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 05/06/18 5855 <Electronically signed by Ofe Jay DO> Date Ofe Jay DO Cosigner Signature: Date (if applicable) CC: CBC-COMPLETE BLOOD CNT Collected: 04/05/2018 Status: F Source: [place] NO DIFF 9:43 AM [facility] REPOSITORY TYPE CODE TESTS RESULT OUT OF RANGE REFERENCE UNITS LAB L100.1000 4.4-11.0 K/mm3 Normal WBC 10.1 LAB L100.1200 4.2-5.4 M/mm3 Normal RBC 4.71 LAB L100.1300 12.0-15.0 g/dl Normal HGB 14.0 LAB L100.1400 37-47 % Normal HCT 41.0 LAB L100.1500 81-99 fL Normal MCV 87.0 LAB L100.1600 27.0-32.0 pg Normal MCH 29.7 LAB L100.1700 32-36 g/gl Normal MCHC 34.1 LAB L100.1810 11.6-14.6 % Normal RDW CV 12.8 LAB L100.1820 35.1-43.9 fl Normal RDW SD 39.9 LAB L100.1900 150-450 K/mm3 Normal PLT 247 LAB L100.2000 6.2-12.0 fl Normal MPV 10.0 Performed By: #### L100.0500 #### [facility] [place], [address] COMPREHENSIVE METABOLIC Collected: 04/05/2018 Status: F Source: MARILIA PROFIL 9:43 AM [facility] REPOSITORY TYPE CODE TESTS RESULT OUT OF RANGE REFERENCE UNITS LAB L501.0100 74-106 mg/dL Normal GLU 96 Result Comment: Please note revised GLUCOSE reference range effective 2017. LAB L501.1000 7-18 mg/dL Normal BUN 12 LAB L501.1100 0.55-1.02 mg/dL Normal CREAT,SERUM 0.87 Result Comment: The validity of the calculated GFR AND GFRAA in patients over 70 years has not been determined. Clinical correlation is essential. LAB L501.1110 >60 mL/min Normal EST GFR 77 Result Comment: Non- GFR Calc LAB L501.1115 >60 mL/min Normal EST GFR - AA 93 Result Comment: GFR Calc LAB L501.1300 10-20 RATIO Normal BUN/CRE 13.7 LAB L501.1500 6.4-8.2 g/dL T Normal PROT 7.2 LAB L501.1800 3.2-5.0 g/dL Normal ALB 3.3 LAB L501.1950 2.2-4.2 g/dL Normal GLOB 3.9 LAB L501.2000 0.9-2.4 RATIO Low A/G 0.8 LAB L501.2200 8.5-10.1 mg/dL CA Normal 8.9 LAB L501.4100 15-37 U/L Normal AST 23 LAB L501.4305 45-117 U/L Normal ALK P 85 LAB L501.4405 13-56 U/L Normal ALT 40 LAB L501.4600 0.20-1.00 mg/dL T Normal BILI 0.40 LAB L501.5300 136-145 mmol/L NA Normal 140 LAB L501.5600 3.5-5.1 mmol/L K Normal 4.2 LAB L501.5900 98-107 mmol/L CL Normal 103 LAB L501.6100 21.0-32.0 mmol/L Normal CO2 27.0 LAB L501.6200 5-15 Normal GAP 10 Performed By: #### L500.4050, L501.9520, L506.0400 #### [facility] [address] [place], [place], [id number] THYROID STIM HORMONE Collected: 04/05/2018 Status: F Source: CORSICANA (TSH) 9:43 AM [facility] REPOSITORY TYPE CODE TESTS RESULT OUT OF RANGE REFERENCE UNITS LAB L501.9520 0.358-3.74 uIU/mL Normal TSH 2.11 Performed By: #### L500.4050, L501.9520, L506.0400 #### [facility] [address] [place], [place], [id number] T4 FREE DIRECT Collected: 04/05/2018 Status: F Source: CORSICANA 9:43 AM [facility] REPOSITORY TYPE CODE TESTS RESULT OUT OF RANGE REFERENCE UNITS LAB L506.0400 0.76-1.46 ng/dL Normal T4 FREE 1.04 DIRECT Performed By: #### L500.4050, L501.9520, L506.0400 #### [facility] [address] [place], [address] VITAMIN D,25 HYDROXY Collected: 04/05/2018 Status: F Source: MARILIA 9:43 AM [facility] REPOSITORY TYPE CODE TESTS RESULT OUT OF RANGE REFERENCE UNITS LAB L506.1000 29.95-100.01 ng/mL Normal Vitamin D 30.2 25-OH Result Comment: Vitamin D 25(OH) Status Range Deficiency <20 ng/mL (50nmol/L) Insuffciency 20 - 30 ng/mL (50 - 75 nmol/L) Sufficiency 30 - 100 ng/mL (75 - 250 nmol/L) Toxicity >100 ng/mL (>250 nmol/L) Performed By: #### L506.1000 #### [facility] [address] [place], [address] ALLERGEN, RAST FOOD Collected: 04/05/2018 Status: F Source: MARILIA PROFILE 9:43 AM [facility] REPOSITORY TYPE CODE TESTS RESULT OUT OF RANGE REFERENCE UNITS LAB L5500.3002 Class 0 kU/L MILK Normal (COW) <0.10 LAB L5500.3004 Class 0 kU/L WHEAT Normal <0.10 LAB L5500.3008 Class 0 kU/L CORN Normal <0.10 LAB L5500.3013 Class 0 kU/L Normal PEANUT <0.10 LAB L5500.3014 Class 0 kU/L Normal SOYBEAN <0.10 LAB L5500.3026 Class 0 kU/L PORK Normal <0.10 LAB L5500.3027 Class 0 kU/L BEEF Normal <0.10 LAB L5500.3052 Class 0 kU/L Normal CHOCOLATE <0.10 Result Comment: Performed at: [address] [id number] Personalized Living Assistant: Davide Jordan MD, Phone: [phone] LAB L5587.3588 Class 0 kU/L Normal EGG, <0.10 WHOLE LAB L5500.2708 . Normal Negative FISH/SHELL MIX Result Comment: Allergens in this mix are: Blue mussel Fish Fishers Shrimp Tuna LAB L5500.8100 . Normal RAST COMMENT Comment Result Comment: Levels of Specific IgE Class Description of Class ----- < 0.10 0 Negative 0.10 - 0.31 0/I Equivocal/Low 0.32 - 0.55 I Low 0.56 - 1.40 II Moderate 1.41 - 3.90 III High 3.91 - 19.00 IV Very High 19.01 - 100.00 V Very High >100.00 Very High Performed By: #### L5500.0400 #### [facility] (refer to report for specific site) refer to report for address and phone number LOWER EXT JOINT ONLY Observed: 04/03/2018 Status: F Source: CORSICANA (ROUTINE) 4:40 PM [facility] REPOSITORY [facility] Imaging Services [address] [place] [address] Lower Ext Joint Only (Routine) MR#: [id number] Acct: [id number] Name: ILA CA Rep #: [id number] : 1980 F 37 From: Laurent Amos MD PCP: Rosalva Styles MD Status: REG CLI Study: Lower Ext Joint Only (Routine) Date of Exam: 04/03/18 Exam# [id number] Ordering Dr: Rosalva Styles MD STUDY: MRI LEFT KNEE REASON FOR EXAM: Medial knee pain, popping, swelling, no specific injury. TECHNIQUE: Standardized fat and water weighted pulse sequences were obtained in all 3 orthogonal planes. COMPARISON: Radiographs 02/08/2018. FINDINGS: Normal medial meniscus. Normal hyaline cartilage of the medial femorotibial compartment. Normal medial femoral condyle and tibial plateau. Normal medial collateral ligamentous complex (MCL). Normal distal semimembranosus, gracilis and semitendinosus tendons. Normal lateral meniscus. Normal hyaline cartilage of the lateral femorotibial compartment. Normal lateral femoral condyle and tibial plateau. Normal proximal tibiofibular articulation. Normal lateral collateral (fibular) ligament. Normal popliteus tendon. Normal biceps femoris tendon. Normal anterior cruciate ligament (ACL). Normal posterior cruciate ligament (PCL). Normal congruent patellofemoral articulation. There is low-grade chondromalacia of the lateral patellar facet (T2 axial image 10). Normal medial and lateral patellar retinaculum. Normal quadriceps tendon. Normal patellar tendon. Normal Hoffa's fat pad. There is a very small joint effusion. There is mild edema in the anterior subcutis adipose space. There is a small enchondroma in the distal femoral metaphysis (T2 sagittal image 10) measuring 0.5 cm in length. MRI/Lower Ext Joint Only (Routine) IMPRESSION: Low-grade chondromalacia patellae. Small joint effusion. Small enchondroma in the distal femur. No demonstrated meniscal or ligamentous injury. Electronically Signed: Laurent Amos MD at 11:33 EDT Tel , Service support , CC: Rosalva Styles MD Rn Clinical Quality: Signed PT D/C SUMMARY (1) Observed: 03/31/2018 Status: F Source: CORSICANA 2:07 PM [facility] REPOSITORY [facility] [place] [address] Fax REHABILITATION SERVICES DISCHARGE SUMMARY MR#: [id number] Acct: [id number] Name: ILA CA Rep #: [id number] : 1980 37 From: Keri Mack PT, Cert. MDT Referring Dr.: Rosalva Styles MD Status: REG RCR Insurance: [facility] SELF PAY INSURANCE HP - PT D/C Summary It has been my pleasure to treat ILA CA under orders from Rosalva Styles, for the diagnosis of LEFT MEDIAL KNEE PAIN for a total of 12 visit(s). Discharge Date: Please see the following information for a summary of their discharge status. - Subjective Subjective: PATIENT REPORTS IT SEEMS LIKE SHE CAN DO MORE THINGS WITH LESS SQUEEZING AND PRESSURE IN HER KNEE BUT IT STILL POPS. SHE REPORTS IT USE TO FEEL MORE LIKE HER KNEE WASN'T FITTING IN PLACE WELL IT IS NOW BUT THE POPPING AND SWELLING CONTINUES. PATIENT REPORTS SHE HAS BEEN ABLE TO TOLERATE THE EX HERE IN PT AND AT HOME IT JUST HASN'T HELPED IT GET BETTER SHE HAD HOPED. - Pain medial L knee Pain Intensity (Out of 10): 2 - Overall Improvement % Improvement: 25 - Objective Objective/Function: PATIENT [...] EDEMA COMPARED TO RIGHT WITH INCREASED TISSUE TEMP OF LEFT MEDIAL KNEE COMPARED TO OTHER KNEE. Motor deficit: NATE LE STRENGTH GROSSLY 5/5 WITH MMT'ING EXCEPT LEFT KNEE EXT 4/5 AND FLEX 4-/5. Sensory deficit: DECREASED LIGHT TOUCH SENSATION OF LEFT ANTERIOR AND MEDIAL [...] SWELLING Goal Progress: Progressing Goal 3:: IMPROVE STANDING, WALKING, STAIR CLIMBING AND KNEE FLEX/SQUATTING FUNCTION Goal Progress: Not Progressing Goal 4:: INDEP HEP Goal Progress: Progressing - Plan Plan: D/C DUE TO LACK OF MORE PROGRESS WITH PT AT THIS TIME. - D/C Information If there are questions or concerns regarding this patient's physical therapy, please feel free to call me at [phone]. Thank you for the referral of this patient. Sincerely, Keri Mack <Electronically signed by Keri Mack PT, Cert. MDT> 03/31/18 1407 CC: Rosalva Styles MD ZELDA Signed INITAL EVALUATION (1) Observed: 03/04/2018 Status: F Source: MARILIA - PT 12:48 PM [facility] RE[facility]ITORY [facility] [address] [place], [place] [address] Fax REHABILITATION SERVICES INITIAL EVALUATION MR#: [id number] Acct: [id number] Name: ILA CA Rep #: [id number] : 1980 37 From: Keri Mack PT, Cert. MDT Referring Dr.: Rosalva Styles MD Status: REG RCR Insurance: [facility] SELF PAY INSURANCE Patient's Visit Information ILA CA is a 37 year old F referred to Physical Therapy by Rosalva Styles with a diagnosis of LEFT MEDIAL KNEE PAIN. Date of Evaluation: 02/28/18 Physical Therapist: Keri Mack - Visit Plan Frequency: 2-3x /Week Duration: 4-6 Weeks Plan: LEFT KNEE US, ROM, STRETCHING AND STRENGTHEING TO HELP MEET SET GOALS. - Subjective Subjective: Work/Leisure: [employer]. Disability: NO. Present symptoms: INSIDE OF LEFT KNEE. NO NUMBNESS OR TINGLING. IT POPS. Present since: MID JANUARY 2018. Pain Scale: WORST 5/10, LEAST 1/10. Currently: 2/10. Commenced as a result of: GETTING INTO CAR AND KNEE POPPED AND IT HAS BEEN SWOLLEN EVER SINCE. Symptoms at onset: SAME. Worse: BEING ON FEET MORE SINCE STARTED BACK TO WORK FEELING PRESSURE AND TENSION IN IT. [...] is mild degenerative arthrosis of the medial femorotibial. compartment. There is mild degenerative arthrosis of the lateral. femorotibial compartment. There is mild degenerative arthrosis of the. patellofemoral articulation. There could be a trace joint effusion. There. is no visualized fracture. There is enthesopathic the at the patellar. insertion of the quadriceps tendon. The soft tissue structures are unremarkable. RAD/Knee 4 or More Views. IMPRESSION: Mild degenerative change. No visualized fracture. Cannot exclude trace. effusion. MRI HAS BEEN ORDERED. PMH: BLOOD CLOTTING DISORDER - ANTIPHOSPHOLIPID SYNDROME. OVER- ACTIVE THYROID, ACID REFLUX. ANXIETY. FATTY LIVER DZ. IBS - Objective Sitting/Standing Posture: NATE GENU VALGUS. Other Observations: INDEP GAIT INTO PT WITHOUT ANY ASSISTIVE DEVICES OR GROSS DEVIATIONS NOTED. MODERATE LEFT KNEE EDEMA COMPARED TO RIGHT. Motor deficit: NATE LE STRENGTH GROSSLY 5/5 WITH MMT'ING EXCEPT NATE HIPS 4/5 AND LEFT KNEE EXT 4-/5 AND FLEX 4-/5. Sensory deficit: DECREASED LIGHT TOUCH SENSATION OF LEFT ANTERIOR AND MEDIAL KNEE. ROM deficit: 0-122 DEG RIGHT KNEE AND 0-115 LEFT KNEE. Core strength: POOR. Palpation: LEFT MEDIAL KNEE TENDERNESS AND TENDERNESS OVER PATELLAR TENDON. - Goals Goal 1:: DECREASE C/O LEFT KNEE PAIN Goal Time Frame: 4-6 Weeks Goal 2:: DECREASE LEFT KNEE SWELLING Goal Time Frame: 4-6 Weeks Goal 3:: IMPROVE STANDING, WALKING, STAIR CLIMBING AND KNEE FLEX/SQUATTING FUNCTION Goal Time Frame: 4-6 Weeks Goal 4:: INDEP HEP Goal Time Frame: 4-6 Weeks - Rehabilitation Potential Rehabilitation Potential: Fair - Anticipated Interventions Patient/Client Instruction: Educate patient on: Condition, Plan of Care, Risk Factors, Benefits of Fitness Program For the Purpose of:: To improve self management Therapeutic Exercise to Include: Strength training, Flexibilty training, Passive ROM, Active ROM, Dynamic Lumbar Stabilization For the Purpose of:: To decrease pain, To increase ROM, To improve muscle performance and motor function, To increase tolerance to activity/condition/position, To improve ability of physical actions for home/community/work/leisure Cryotherapy (ice pack, ice massage): Yes Ultrasound (thermal/non thermal): Yes For the Purpose of:: To decrease pain, To decrease swelling/inflammation, To increase ROM, To improve nutrient delivery to tissue Thank you for the opportunity to evaluate your patient. For Medicare and Medicare HMO plans, please review the plan of care and approve it. It will need to be FAXED BACK to us at [phone] for Medicare purposes. Please let me know if there are questions or concerns regarding this plan of care. Physician Signature: Date: <Electronically signed by Keri Mack PT, Cert. MDT> 03/04/18 1248 CC: Rosalva Styles MD ZELDA Signed For Medicare only, by signing this I certify the plan of care. Physicians Signature Date KNEE 4 OR MORE Observed: 02/08/2018 Status: F Source: CORSICANA VIEWS 9:06 AM [facility] REPOSITORY [facility] Imaging Services [address] [place] [address] Knee 4 or More Views MR#: [id number] Acct: [id number] Name: ILA CA Rep #: [id number] : 1980 F 37 From: Caity Felix MD PCP: Rosalva Styles MD Status: REG CLI Study: Knee 4 or More Views Date of Exam: 02/08/18 Exam# [id number] Ordering Dr: Rosalva Styles MD STUDY: X-RAY - LEFT KNEE REASON FOR EXAM: Female, 37 years old. [place] pop swelling pain TECHNIQUE: 4 view(s) of the knee. COMPARISON: None. FINDINGS: Normal visualized distal femur. Normal visualized proximal tibia and fibula. Normal proximal tibiofibular articulation. There is mild degenerative arthrosis of the medial femorotibial compartment. There is mild degenerative arthrosis of the lateral femorotibial compartment. There is mild degenerative arthrosis of the patellofemoral articulation. There could be a trace joint effusion. There is no visualized fracture. There is enthesopathic the at the patellar insertion of the quadriceps tendon. The soft tissue structures are unremarkable. RAD/Knee 4 or More Views IMPRESSION: Mild degenerative change. No visualized fracture. Cannot exclude trace effusion. Electronically Signed: Caity Felix MD at 15:58 EDT Tel , Service support , CC: Rosalva Styles MD Rn Clinical Quality: Signed ALLERGIES ALLERGIES DATE TYPE / CODE NAME / CODE REACTION SEVERITY SOURCE 06/20/2018 Drug chlorhexidin Rash Unknown [facility] Allergy/4160 e/[id number] Hospital 88071(SNOMED (RXNORM) Repository CT) 05/21/2018 Drug tobramycin/F Other Unknown [facility] Allergy/4160 [id number](RX Hospital 87284(SNOMED NORM) Repository CT) 05/21/2018 Drug amoxicillin/ Rash Unknown [facility] Allergy/4160 [id number](R Hospital 83673(SNOMED XNORM) Repository CT) ENCOUNTERS ENCOUNTERS ADMIT/DISCHARGE ACCOUNT ADMITTING ENCOUNTER LOCATION SOURCE NUMBER CLASS 07/29/2018 [id number] Ambulatory [place] 5 [facility] ing:PT Repository 07/04/2018/ [id number] Ambulatory BMSBuilding:B [place] 8 5 [facility] Repository 07/03/2018 [id number] Ambulatory Building:[facility] Repository 06/20/2018/ [id number] Ambulatory BMSBuilding:B [place] 8 2 MS.[facility] Repository 06/20/2018/ [id number] Ambulatory [place] 8 9 [facility] ing:SDCRoom: Repository AC09 05/06/2018/ [id number] Ambulatory BMSBuilding:B [place] 8 2 [facility] Repository 04/05/2018 [id number] Ambulatory [place] 0 [facility] ing:LAB Repository 04/03/2018 [id number] Ambulatory [place] 2 [facility] ing:MRI Repository 03/28/2018/ [id number] Ambulatory [place] 8 4 [facility] ing:PT Repository 02/08/2018 [id number] Ambulatory [place] 9 [facility] ing:RAD Repository PAYERS PAYERS ENCOUNTER GUARANTOR PAYER SUBSCRIBER SOURCE 07/29/2018 ILA Echeverria Primary ILA Capellan [id number] Insurance:MEDICAL HERSHEYDOB: [facility] [id number] Number: Repository [address]Eal: 330 [id number] [phone] (HP) Date:6572-69-81AE [address] [place] [address]JA: 07/29/2018 Secondary NOT GIVENUNK [place] Insurance:SELF PAY [facility] Number: Effective Repository Date:2018-07-04 07/04/2018 ILA Echeverria Primary ILA Echeverria [place] [id number] Insurance:MEDICAL HERSHEYDOB: [facility] [id number] Number: Repository [address]Wwf: 330 [id number] [phone] () Date:5357-78-65IU[address] [address]ZN: 07/04/2018 Secondary NOT GIVENUNK [place] Insurance:SELF PAY [facility] Number: Effective Repository Date:2018-06-25 07/03/2018 ILA Echeverria Primary [facility] HERSHEYDOB: Insurance:Medical HERSHEYDOB: Repository [id number] [facility] [id number] Number: [address] [place], [place] [id number] [place], [place] [address]Pkh: (330) Date:5614-26-14Nolg [address]Jgo: (HP)Tel: Name:[facility] [phone] () [address] [place] [address] (WP) [id number]: 07/03/2018 Secondary ILA Jacki [place] Practices Insurance:Medical HERSHEYDOB: [facility] [id number] Number: [address] [place] [address] [id number] RdWest [place], [place] Date: - [address]Slm: [phone]) [id number] [phone] (HP) Name:[facility] [address] [place] [address] [id number]: 06/20/2018 ILA K Primary ILA Jacki [place] [id number] Insurance:MEDICAL HERSHEYDOB: [facility] [place] [id number] Number: Repository [address]Jqr: 330 [id number] [phone] () Date:7126-50-46UI [address] [address]LB: 06/20/2018 Secondary NOT GIVENUNK [place] Insurance:SELF PAY [facility] Number: Effective Repository Date:2018-06-20 06/20/2018 ILA K Primary ILA Jacki [place] [id number] Insurance:MEDICAL HERSHEYDOB: [facility] [place] [id number] Number: Repository [address]Cog: 330 [id number] [phone] (HP) Date:1501-72-50YU[address] [address]IL: 06/20/2018 Secondary NOT GIVENUNK [place] Insurance:SELF PAY [facility] Number: Effective Repository Date:2018-05-09 05/06/2018 ILA Jacki Primary ILA Jacki [place] [id number] Insurance:MEDICAL HERSHEYDOB: [facility] [place] [id number] [place] Number: Repository [address]Luo: 330 [id number] [phone] (HP) Date:1348-80-33GR [address] [address]KB: 05/06/2018 Secondary NOT GIVENUNK [place] Insurance:SELF PAY [facility] Number: Effective Repository Date:2018-05-06 04/05/2018 Ila Echeverria Primary Ila [place] HersheyRWEST Insurance:MEDICAL HersheyDOB: [facility] [id number] Hospital [address]Qsx: (330) Number: Repository [phone] () [id number] Date:4030-86-66MM [address] [address]YL: 04/05/2018 Secondary NOT GIVENUNK [place] Insurance:SELF PAY [facility] Number: Effective Repository Date:2018-04-05 04/03/2018 Ila Echeverria Primary Ila Capellan [id number] Insurance:MEDICAL HersheyDOB: [facility] [id number] Number: Repository [address]Eny: 330 [id number] [phone] () Date:9282-61-32HR [place] [id number]: 04/03/2018 Secondary NOT GIVENUNK [place] Insurance:SELF PAY [facility] Number: Effective Repository Date:2018-03-31 03/28/2018 Ila Echeverria Primary Ila Capellan [id number] Insurance:MEDICAL HersheyDOB: [facility] [id number] Number: Repository [address]Urf: 330 [id number] [phone] () Date:9290-97-63NZ [address] [address]LS: 03/28/2018 Secondary NOT GIVENUNK [place] Insurance:SELF PAY [facility] Number: Effective Repository Date:2018-02-20 02/08/2018 Ila Echeverria Primary Ila Capellan [id number] Insurance:MEDICAL HersheyDOB: [facility] [id number] Number: Repository [address]Whe: 419 [id number] [phone] () Date:1555-37-02OW [address], [place] [address]RQ: 02/08/2018 Secondary NOT GIVENUNK [place] Insurance:SELF PAY [facility] Number: Effective Repository Date:2018-02-08
== END 2018-06-20 09:57 | disposition home or self-care (01) ==
LOC: SDC 05:35 → AC 05:37
PROVIDERS: Anesthesiology; Family Provider Internal Medicine; PCP Internal Medicine; Referring Provider Orthopaedic Surgery; Visit Provider Orthopaedic Surgery
PROC: (CPT 29870; principal; 2018-06-20 07:10)
DX: M17.12 Unilateral primary osteoarthritis, left knee (principal); S83.282A Other tear of lateral meniscus, current injury, left knee, initial encounter; K21.9 Gastro-esophageal reflux disease without esophagitis; K76.0 Fatty (change of) liver, not elsewhere classified; D68.61 Antiphospholipid syndrome; F41.9 Anxiety disorder, unspecified; E06.3 Autoimmune thyroiditis; Z79.82 Long term (current) use of aspirin; Z79.891 Long term (current) use of opiate analgesic; Z79.899 Other long term (current) drug therapy; X58.XXXA Exposure to other specified factors, initial encounter; Y93.9 Activity, unspecified; Y92.9 Unspecified place or not applicable; Y99.9 Unspecified external cause status
CPT/HCPCS: 29877; 81025; J7120; J2405

== ENCOUNTER 2018-10-08 16:30 | Outpatient (RCR) | payer OTHER, SELFPAY ==
[2018-07-04 10:14] VITALS: BMI 50.1
--- NOTE | 2018-07-14 16:54 | HP.PTEVAL ---
Patient's Visit Information ILA CA is a 38 year old F referred to Physical Therapy by Ofe Jay DO with a diagnosis of DSA of left knee. Date of Evaluation: 07/14/18 Physical Therapist: Michelle Hayes DPT - Visit Plan Frequency: 2x /Week Duration: 4 Weeks Plan: Focus on LE and core s/s. - Subjective Findings: Left knee surgery Jun 20, [address] Jay-cleaned out the knee. Getting into the car this summer and felt a pop in Mid January. Tried conservative care and it didn't get better. Went straight home from surgery- split level house- lives with and son (7)- does not have to carry him. No problems getting around the house at this point. The knee is doing pretty well- still swollen- did have some popping and clicking which has decreased. The pain she is around the incision site. Sore and tender to touch. Feels like she is walking around well but when she sits for to long she needs to keep it moving. The only problems she is having is squatting and bending down- getting something up off the floor. Worst: 5/10 Agg: bending or squatting down. Best: 0/10 Eases: rest. No radiating pain- no N/T. Sutures are out- did not have x-rays since surgery. Told her to come to therapy. 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 Return to [place] in about 2 weeks. PMHx/Meds: Lovenox injections 6 weeks- due to her blood clotting disorder. Sleep: not disturbed. Feels that she is 75% back to normal. - Objective Posture: FH, RS- does correct with VC's but does not maintain. Gait: no deviation noted. Stairs: asc/desc 8 recip with no HR- ascend increased push off right more than left and with descent less control with WB and eccentric lowering on the left. HR/TR: able without incidence. SLS: 3 sec then LOB on the left 30 sec on the right. Palpation: tender along lateral joint line. Sensation/Reflex: WNL. Incisions: well healed- mild scar tissue. ROM: 0-120 degrees with tightness at end range. Strength: Ankle: 5/5, Knee: extn: 4+/5 flexion: 4/5, hip: flexion: 4/5, abd: 4/5, Glut strength tested in clam position: 4/5, extn: 4/5, Add: 4+/5 Core: fair. Flex: HS: mild, Gastroc: mild - Goals Goal 1:: Patient will be I with HEP and progression Goal Time Frame: 4-6 Weeks Goal 2:: Patient will asc/desc 8 stairs with no HR and good consistent pattern Goal Time Frame: 4-6 Weeks Goal 3:: Patient will SLS for 15 seconds on Left LE Goal Time Frame: 4-6 Weeks Goal 4:: Patient will demo 4+/5 strength in left LE Goal Time Frame: 4-6 Weeks Goal 5:: Patient will maintain proper posture t/o tx session to demo increased core s/s. Goal Time Frame: 4-6 Weeks - Rehabilitation Potential Physical Therapy Diagnosis: Patient presents with hypomobility- she has decreased strength and muscular endurance leading to decreased participation in ADL's and increased pain. Rehabilitation Potential: Good - Anticipated Interventions Patient/Client Instruction: Educate patient on: Benefits of Fitness Program Therapeutic Exercise to Include: Strength training, Endurance training, Balance training, Body mechanics, Postural training, Flexibilty training, Dynamic Lumbar Stabilization For the Purpose of:: To improve muscle performance and motor function TENS: Yes Cryotherapy (ice pack, ice massage): Yes Thermo therapy (hot pack): Yes Ultrasound (thermal/non thermal): No For the Purpose of:: To decrease pain Thank you for the opportunity to evaluate your patient. For Medicare and Medicare HMO plans, please review the plan of care and approve it. It will need to be FAXED BACK to us at [phone] for Medicare purposes. For Medicare only, by signing this I certify the plan of care. Please let me know if there are questions or concerns regarding this plan of care. Physician Signature: Date:
--- NOTE | 2018-08-19 16:46 | HP.PTEVAL2 ---
Patient's Visit Information ILA CA is a 38 year old F referred to Physical Therapy by Ofe Jay DO with a diagnosis of Low Back Pain. Date of Evaluation: 08/19/18 Physical Therapist: Michelle Hayes DPT - Visit Plan Frequency: 2x /Week Duration: 4 Weeks Plan: Focus on core s/s - Subjective Findings: Patient reports that all her compensating for her knee she caused herself some issues in the back. Feels the last few weeks its getting better as she is doing things more normally. Back pain right before surgery and now that she is back on her feet her back is bothering her again. Pain is located along the low back on the right- no pain that radiates to the LE but does have mild pain that travels to the left side of the back. Worst: 7/10 Agg: standing Eases: sit down Best: 0/10- once she sits she is painfree in 30 seconds. Tylenol is not really working. Describes the pain as intense stabbing sharp pains. Hard to lift things up. Sleep: not disturbed. 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 10 min then it starts to get get really intense. No x-rays or MRIs at this point. Insidious onset- no back pain prior to this. Pmhx/Meds: no changes since other initial evaluation. - Objective Objective: Posture: FH, RS- can correct with verbal cues but does not maintain. Gait: no deviation noted. ROM: WFL in all planes no pain- Lumbar, Hip, Knee and Ankle. Strength: Hip: Right: 4/5, Left: 4+/5, Knee: 5/5 Ankle: 5/5 Core:fair. Palpation: not tender to touch. Special Test: Slump: negative, Dural Signs: negative. Flex: HS: mild - Goals Goal 1:: Patient will be I with HEP and progression Goal Time Frame: 4-6 Weeks Goal 2:: Patient will maintain proper posture t/o tx session to demo increased core s/s Goal Time Frame: 4-6 Weeks Goal 3:: Patient will report 0/10 back pain for 1 week Goal Time Frame: 4-6 Weeks - Rehabilitation Potential Physical Therapy Diagnosis: Patient presents with hypomobility- she has decreased strength and muscular endurance leading to poor posture and increased pain Rehabilitation Potential: Fair - Anticipated Interventions Patient/Client Instruction: Educate patient on: Benefits of Fitness Program Therapeutic Exercise to Include: Strength training, Endurance training, Body mechanics, Postural training, Dynamic Lumbar Stabilization For the Purpose of:: To improve muscle performance and motor function TENS: Yes Cryotherapy (ice pack, ice massage): Yes Thermo therapy (hot pack): Yes Ultrasound (thermal/non thermal): Yes Thank you for the opportunity to evaluate your patient. For Medicare and Medicare HMO plans, please review the plan of care and approve it. It will need to be FAXED BACK to us at [phone] for Medicare purposes. For Medicare only, by signing this I certify the plan of care. Please let me know if there are questions or concerns regarding this plan of care. Physician Signature: Date:
--- NOTE | 2018-08-21 16:53 | HP.PTDCSUM ---
HP - PT D/C Summary It has been my pleasure to treat ILA CA under orders from Ofe Jay DO, for the diagnosis of DSA of left knee for a total of 9 visit(s). Discharge Date: Please see the following information for a summary of their discharge status. - Subjective Subjective: Patient reports that she is doing great- mild problems with squatting down but its better - Pain L knee Pain Intensity (Out of 10): 0 - Overall Improvement % Improvement: 95 - Objective Objective/Function: Posture: FH, RS- does correct with VC's but does not maintain. Gait: no deviation noted. Stairs: asc/desc 8 recip with no HR HR/TR: able without incidence. SLS: 30 sec left 30 sec on the right. Palpation: not tender Sensation/Reflex: WNL. Incisions: well healed- mild scar tissue. ROM: 0-120 degrees. Strength: Ankle: 5/5, Knee: extn: 5/5 flexion: 5/5, hip: flexion: 4+/5, abd: 4+/5, Glut strength tested in clam position: 4+/5, extn: 5/5, Add: 5/5 Core: fair. Flex: HS: mild, Gastroc: mild - Goals Goal 1:: Patient will be I with HEP and progression Goal Progress: Goal Met Goal 2:: Patient will asc/desc 8 stairs with no HR and good consistent pattern Goal Progress: Goal Met Goal 3:: Patient will SLS for 15 seconds on Left LE Goal Progress: Goal Met Goal 4:: Patient will demo 4+/5 strength in left LE Goal Progress: Goal Met Goal 5:: Patient will maintain proper posture t/o tx session to demo increased core s/s. Goal Progress: Progressing - Plan Plan: Discharge to I HEP - D/C Information If there are questions or concerns regarding this patient's physical therapy, please feel free to call me at [phone]. Thank you for the referral of this patient. Sincerely, Michelle Hayes DPT
--- NOTE | 2018-09-11 16:49 | HP.PTRE(2) ---
Ofe Jay, DO, It has been my pleasure to treat ILA CA over the last 9 visits for Low Back Pain. Please see the progress note below for an update on the physical therapy plan of care! Subjective: Patient reports the back is a lot better. The pain is less intense and is more symmetrical and has moved to the middle (centralization) Can be on her feet for an hour prior to having to sit down. When she has pain 1-2/10. Can get through the grocery store without pain. Objective/Function/Assessment: Posture: FH, RS- can correct with verbal cues but does maintain. Gait: no deviation noted. ROM: WFL in all planes no pain- Lumbar, Hip, Knee and Ankle. Strength: Hip: Right: 4+/5, Left: 4+/5, Knee: 5/5 Ankle: 5/5 Core:fair. Palpation: not tender to touch. Special Test: Slump: negative, Dural Signs: negative. Flex: HS: mild Plan Plan: Hold 3 weeks- then re-assess Goals - Goals Goal 1:: Patient will be I with HEP and progression Goal Time Frame: 4-6 Weeks Goal 2:: Patient will maintain proper posture t/o tx session to demo increased core s/s Goal Time Frame: 4-6 Weeks Goal 3:: Patient will report 0/10 back pain for 1 week Goal Time Frame: 4-6 Weeks Anticipated Interventions Patient/Client Instruction: Educate patient on: Benefits of Fitness Program Therapeutic Exercise to Include: Strength training, Endurance training, Body mechanics, Postural training, Dynamic Lumbar Stabilization For the Purpose of:: To improve muscle performance and motor function TENS: Yes Cryotherapy (ice pack, ice massage): Yes Thermo therapy (hot pack): Yes Ultrasound (thermal/non thermal): Yes Please do not hesitate to contact me at [phone] by phone or if you have questions or concerns regarding this new plan of care! Sincerely, Michelle Hayes DPT
== END 2018-10-08 19:00 | disposition home or self-care (01) ==
LOC: PT 16:30
PROVIDERS: Family Provider Internal Medicine; PCP Internal Medicine; Referring Provider Orthopaedic Surgery; Visit Provider Orthopaedic Surgery
DX: Z98.890 Other specified postprocedural states (principal)
CPT/HCPCS: 97014; 97110; 97161; 97164; 97530; G0283

== ENCOUNTER → 2018-10-11 11:24 | Outpatient (CLI) | payer OTHER, SELFPAY ==
[2018-09-09 13:27] VITALS: BMI 50.1
[2018-10-13 09:49] LABS: Rubella IgG 155.1 IU/mL
[2018-10-13 14:30] LABS: AFP, Tumor Marker 2.8 ng/mL (0.0-8.3); Rubeola IgG Ab > 300.0 AU/mL (Immune >29.9)
== END ==
PROVIDERS: Family Provider Internal Medicine; PCP Internal Medicine; Referring Provider Internal Medicine; Visit Provider Internal Medicine
DX: Z00.01 Encounter for general adult medical examination with abnormal findings (principal); K76.0 Fatty (change of) liver, not elsewhere classified
CPT/HCPCS: 36415; 82105; 86762; 86765

== ENCOUNTER → 2019-01-30 | Outpatient (CLI) | payer OTHER, SELFPAY ==
[2018-09-09 13:27] VITALS: BMI 50.1
[2019-02-01 22:07] LABS: Factor VIII Activity 92 % (56-140); von Willebrand Factor Activity 90 % (50-200)
[2019-02-03 15:19] LABS: VWD Studies Interp Report Note (.); von Willebrand Factor (vWF) Ag 101 % (50-200)
== END | disposition home or self-care (01) ==
LOC: LAB 13:04
PROVIDERS: Family Provider Internal Medicine; PCP Internal Medicine; Referring Provider Internal Medicine; Visit Provider Internal Medicine
DX: R58 Hemorrhage, not elsewhere classified (principal)
CPT/HCPCS: 36415; 85240; 85245; 85246

== ENCOUNTER → 2020-07-20 12:17 | Outpatient (CLI) | payer OTHER, SELFPAY ==
[2018-09-09 13:27] VITALS: BMI 50.1
--- NOTE | 2020-07-20 12:19 | BI_ITS ---
MAMMOGRAPHY - BILATERAL SCREENING REASON FOR EXAM: Female, 40 years old. Routine annual screening examination. PERTINENT HISTORY: Aunt with breast cancer. TECHNIQUE: Digital bilateral breast bam (3D mammographic acquisition) in the CC and MLO projections. 2-D mediolateral oblique (MLO) and craniocaudad (CC) views of both breasts were obtained. CAD: Full Field Digital Mammography with Computer Added Detection was performed. COMPARISON: None. Baseline examination. FINDINGS: Breast Composition: The breasts are heterogeneously dense, which may obscure small masses. There are no dominant masses or suspicious calcifications. No other significant abnormalities are identified. BI/SCRN MAMM (CAD)W/BAM BILAT IMPRESSION: Negative screening mammogram. Yearly followup mammogram recommended. (A) ASSESSMENT CATEGORY: BIRADS Category 1: Negative. A letter regarding these results will be sent to the patient by the facility within 30 days. Approximately 10% of breast cancers are not detected by mammography. A normal mammogram should not delay biopsy of a clinically suspicious abnormality. [id number] Electronically Signed: Isaac Espinoza, at 13:27 EST , Service support ,
--- NOTE | 2020-07-20 12:48 | NM_ITS ---
CLINICAL: 40-year-old female with reported history of postprandial nausea-emesis. SEMI-SOLID PHASE 99m Tc SULFUR COLLOID GASTRIC EMPTYING STUDY COMPARISON: None available FINDINGS: The patient was administered 1.1 mCi of 99m Tc sulfur colloid mixed with oatmeal and consumed per os. Image acquisitions in the anterior-posterior projections for a total of 60 minutes. There is prompt visualization of the stomach. There is no gastroesophageal reflux identified. First order kinetics are maintained throughout the duration of the acquisitions. The T ? linear fit was calculated to be 184.43 minutes, (Normal: 12-56 minutes). NM/Gastric Emptying Study IMPRESSION: 1. ABNORMAL 99m Tc sulfur colloid semi-solid phase (oatmeal) gastric emptying imaging examination. A. There is significant delayed semi-solid phase gastric emptying compared to normal controls with maintained first order kinetics throughout all components of the examination. (Kristie et al, J Nucl Med Tech 38: 186, 2010). Electronically Signed: Mao Mobley DO at 23:01 EST Tel , Service support ,
== END ==
PROVIDERS: PCP Internal Medicine; Referring Provider Internal Medicine; Visit Provider Internal Medicine
DX: R11.10 Vomiting, unspecified (principal); Z12.31 Encounter for screening mammogram for malignant neoplasm of breast
CPT/HCPCS: 77063; 77067; 78264; A9541

== ENCOUNTER → 2020-08-19 11:07 | Outpatient (CLI) | payer OTHER, SELFPAY ==
[2018-09-09 13:27] VITALS: BMI 50.1
[2020-08-19 11:36] LABS: Absolute Lymphocyte Count 2.78 X10^3/uL (0.83-4.51); Absolute Neutrophil Count 5.6 X10^3/uL (2.0-7.7); Basophil# 0.06 X10^3/uL; Basophil% 0.6 % (0-1); Eosinophil# 0.22 X10^3/uL; Eosinophils% 2.4 % (0-5); Hematocrit 43.7 % (37-47); Hemoglobin 14.2 g/dL (12.0-15.0); Lymphocyte # 2.78 X10^3/ul (4.0); Lymphocyte % 30.1 % (19-41); Mean Corp Hgb Conc 32.5 g/dL (32-36); Mean Corpuscular Hgb 28.1 pg (27.0-32.0); Mean Corpuscular Volume 86.5 fL (81-99); Mean Platelet Vol. 10.2 fl (6.2-12.0); Monocyte% 5.4 % (0-10); NRBC Flagged by Analyzer 0 % (0-5); Neutrophil # 5.64 X10^3/uL (2.7-7.7); Neutrophil % 61.1 % (47-70); Platelet Count 250 K/mm3 (150-450); RBC Distribution Width CV 12.6 % (11.6-14.6); RBC Distribution Width SD 39.6 fl (35.1-43.9); Red Blood Count 5.05 M/mm3 (4.2-5.4); White Blood Count 9.2 K/mm3 (4.4-11.0)
[2020-08-19 12:06] LABS: ALB/GLOB Ratio 0.9 RATIO (0.9-2.4); AST(SGOT) 25 U/L (15-37); Alanine Aminotransfer ALT/SGPT 52 U/L (13-56); Albumin, Serum 3.7 g/dL (3.2-5.0); Alkaline Phosphatase 110 U/L (45-117); Anion Gap 5 (5-15); BUN 11 mg/dL (7-18); BUN/Creat Ratio 12.2 RATIO (10-20); Calcium,Total 9.4 mg/dL (8.5-10.1); Chloride 101 mmol/L (98-107); EST Glomerular Filtration Rate 74 mL/min (>60); Est Glom Filt Rate - Afr Amer 89 mL/min (>60); Globulin 3.9 g/dL (2.2-4.2); Glucose 121 mg/dL (74-106); Potassium 4.3 mmol/L (3.5-5.1); Protein, Total 7.6 g/dL (6.4-8.2); Sodium Level 136 mmol/L (136-145)
== END ==
PROVIDERS: PCP Internal Medicine
DX: K31.84 Gastroparesis (principal)
CPT/HCPCS: 36415; 80053; 85025

== ENCOUNTER → 2020-08-24 10:17 | Outpatient (CLI) | payer OTHER, SELFPAY ==
[2018-09-09 13:27] VITALS: BMI 50.1
--- NOTE | 2020-08-24 10:24 | US_ITS ---
STUDY: ABDOMINAL ULTRASOUND - RIGHT UPPER QUADRANT REASON FOR VISIT: Female, 40 years old FATTY LIVER -- GASTROPARESIS -- CHOLECYSTECTOMY 2016 TECHNIQUE: Ultrasound evaluation of the right upper quadrant was performed with real-time and static kay-scale imaging. TECHNICAL QUALITY: Adequate. COMPARISON: Comparison is made with prior study dated 07/07/2015. FINDINGS: Liver: The liver measures 17.7 cm. There is increased echogenicity consistent with fatty infiltration. The bile ducts are within normal limits. There is hepatic color flow. The direction of portal flow is hepatopetal. There is no demonstrated mass lesion. Gallbladder: The patient is status post cholecystectomy. Common Bile Duct (C.B.D.): The common bile duct measures 4.6 mm. Pancreas: Normal size of the head, body and tail of the pancreas. There is normal echogenicity of the pancreas. There is no demonstrated pancreatic mass or cyst. Right Kidney: Normal size of the right kidney. The right kidney measures 12 cm x 6.1 cm x 5.3 cm. Normal renal cortex. The right cortex measures 1.7 cm. There is no demonstrated renal mass or cyst. There is no right hydronephrosis. US/Abdomen Limited IMPRESSION: Fatty infiltration of the liver. Electronically Signed: Isaac Espinoza MD at 11:08 EST , Service support ,
== END ==
PROVIDERS: PCP Internal Medicine
DX: K31.84 Gastroparesis (principal)
CPT/HCPCS: 76705

== ENCOUNTER → 2021-05-15 13:18 | Outpatient (CLI) | payer OTHER, SELFPAY | PROVIDERS: PCP Internal Medicine; Visit Provider Internal Medicine | DX: U07.1 COVID-19 (principal) | CPT/HCPCS: 87635; U0005; U0003 ==

== ENCOUNTER 2021-10-02 13:27 | Outpatient (CLI) | payer OTHER, SELFPAY ==
--- NOTE | 2021-10-02 13:30 | BI_ITS ---
MAMMOGRAPHY - BILATERAL SCREENING REASON FOR EXAM: Female, 41 years old. Routine annual screening examination. PERTINENT HISTORY: Aunt with breast cancer. TECHNIQUE: Digital bilateral breast bam (3D mammographic acquisition) in the CC and MLO projections. 2-D mediolateral oblique (MLO) and craniocaudad (CC) views of both breasts were obtained. CAD: Full Field Digital Mammography with Computer Added Detection was performed. COMPARISON: Comparison is made with prior examination dated 07/20/2020. FINDINGS: Breast Composition: There are scattered areas of fibroglandular density. There are no dominant masses or suspicious calcifications. No other significant abnormalities are identified. There has been no significant change since the prior study. BI/SCRN MAMM (CAD)W/BAM BILAT IMPRESSION: Stable bilateral screening mammogram. Yearly follow-up mammogram recommended. (A) ASSESSMENT CATEGORY: BIRADS Category 1: Negative. A letter regarding these results will be sent to the patient by the facility within 30 days. Approximately 10% of breast cancers are not detected by mammography. A normal mammogram should not delay biopsy of a clinically suspicious abnormality. [id number] Electronically Signed: Isaac Espinoza MD at 14:37 EDT ,
== END 2021-10-02 23:59 | disposition home or self-care (01) ==
LOC: OPBI 13:27
PROVIDERS: PCP Internal Medicine; Visit Provider Internal Medicine
DX: Z12.31 Encounter for screening mammogram for malignant neoplasm of breast (principal)
CPT/HCPCS: 77063; 77067

== ENCOUNTER 2022-02-05 07:15 | Day surgery (SDC) | payer OTHER, SELFPAY ==
[2022-02-05] VITALS (14 sets, daily range): BP systolic 116–181; BP diastolic 67–102; PULSE 74–101; RESP 16–20; TEMP 35.8–36.7; O2SAT 87–96; BMI 54.3
[2022-02-05 07:40] LABS: Internal QC Validated? YES +Cl - CLEAR BKGD; Pregnancy, Urine Negative Negative
[2022-02-05] MEDS: Lactated Ringers 1,000 ML 15 ML IV (07:53)
[2022-02-05 08:16] LABS: Thyroid Stim Hormone (TSH) 5.05 uIU/mL (0.358-3.74)
--- NOTE | 2022-02-05 08:50 | PCM.DC.SUM ---
Providers Primary Care Physician: Dr. Rosalva Styles MD Reason For Visit: SUBMUCOUS RESECTION OF INFERIOR TURBINATES BILAT Medications at Discharge Home Medications cholecalciferol (vitamin D3) 25 mcg (1,000 unit) tablet (Vitamin D3) 5,000 unit PO DAILY 02/01/15 sertraline 50 mg tablet 100 mg PO QHS 02/01/15 spironolactone 100 mg tablet (Aldactone) 200 mg PO QHS 02/01/15 aspirin 81 mg tablet,delayed release 81 mg PO QHS 02/02/15 L.acidoph, paracasei,B. lactis 10 billion cell capsule 1 ea PO DAILY 05/21/18 ascorbic acid (vitamin C) 1,000 mg tablet,extended release (Vitamin C ER) 1,000 mg PO DAILY 01/29/22 levonorgestrel 20 mcg/24 hours (7 yrs) 52 mg intrauterine device (Mirena) 20 mcg intrauterine DAILY 01/29/22 pantoprazole 40 mg tablet,delayed release 40 mg PO QHS 01/29/22 zinc 50 mg capsule 50 mg PO DAILY 01/29/22 Weight / BMI Weight Weight: 167 kg Body Mass Index (BMI) 54.3 ABG / Lab / Microbiology Data Laboratory: Laboratory Results - last 24 hr 02/05/22 07:29: Urine Test Negative 02/05/22 07:39: TSH 5.05 H D/C Instructions Discharge Diet: No restrictions Additional Activity Instructions: No noseblowing. Start saline nasal spray 3 sprays each nostril 3x/day on 02/06/22. Please Follow Up With: Ravinder Squires MD When: 8 days Meaningful Use Info Meaningful Use Diagnoses (Choose all that apply): None applicable Discharge Plan Admission Attending Provider: Ravinder Squires Primary Care Provider: Rosalva Styles Discharge Orders/Prescriptions Prescriptions: No Action spironolactone [Aldactone] 100 MG tablet 200 mg PO QHS sertraline 50 MG tablet 100 mg PO QHS cholecalciferol (vitamin D3) [Vitamin D3] 1,000 UNIT tablet 5,000 unit PO DAILY aspirin 81 MG tablet 81 mg PO QHS L.acidoph, paracasei,B. lactis 1 EACH capsule 1 ea PO DAILY Mirena 20 mcg/24 hours (7 yrs) 52 mg Intrauterine Device 20 mcg INTRAUTERINE DAILY Vitamin C 1,000 mg Tablet Extended Release 1,000 mg PO DAILY pantoprazole 40 mg Tablet,Delayed Release (Dr/Ec) 40 mg PO QHS zinc 50 mg Capsule 50 mg PO DAILY Referrals / Follow Up: Rosalva Styles MD [Primary Care Provider] - Disposition Disposition (needs filled in before D/C Order can be placed): Home, Self Care
[2022-02-05] MEDS: Oxymetazoline 0.05% 1 SPRAY SPRAY.BTL 15 SPRAY (09:15)
[2022-02-05] MEDS: Lidocaine 1% /Epi 1:100 (20ml) 20 ML Vial (09:15)
[2022-02-05] MEDS: Mupirocin Ointment 22gm Tube 1 APPLIC (09:15)
--- NOTE | 2022-02-05 09:30 | PCM.OPRPT ---
Report of Operation Date of Procedure: 02/05/22 Pre-Operative Diagnosis: nasal airway obstruction inferior turbinate hypertrophy Post-Operative Diagnosis: same Surgery/Procedure Performed:: bilateral submucous resection inferior turbinates Surgeon: Ravinder Squires Type of Anesthesia: General Anesthesiologist: Andrew Ulrich Estimated Blood Loss (mL): minimal Description of Procedure: The patient was taken to the operating room on 02/05/2022. SHe was placed in supine position on the operating table. SHe was given sufficient general endotracheal anesthesia. The table was elevated 30 degrees. The nose was draped sterilely. 1% lidocaine with epinephrine was injected into the septum nasal floor anterior aspect of the inferior turbinates bilaterally. An incision was placed anterior aspect of the right inferior turbinate at the mucocutaneous junction. A submucous plane established with a caudal elevator. Submucous resection was carried out using a microdebrider. In this way, bone and soft tissue were removed. Afrin pledgets were used for hemostasis. The incision was then closed with 4-0 chromic. Then, an incision was placed at the anterior aspect of the left inferior turbinate at the mucocutaneous junction. A submucous plane established using a caudal elevator. Submucous resection was carried out using a microdebrider. In this way, bone and tissue were removed. The incision was then closed with 4-0 chromic. Afrin and Kwesi were used for hemostasis. Byrd nasal splints were applied to each side of the septum and sewn through and through with 3-0 silk. The patient was then awoken and brought to the recovery room in stable condition. Blood loss minimal, replacement none. Sponge, needle count, sponge count, were correct at the end of this procedure.
== END 2022-02-05 12:39 | disposition home or self-care (01) ==
LOC: SDC 07:15 → AC 07:16
PROVIDERS: Anesthesiology; PCP Internal Medicine; Referring Provider Otolaryngology; Visit Provider Otolaryngology
PROC: (CPT 30140; principal; 2022-02-05 08:30)
DX: J34.3 Hypertrophy of nasal turbinates (principal); D68.61 Antiphospholipid syndrome; J34.89 Other specified disorders of nose and nasal sinuses; Z86.718 Personal history of other venous thrombosis and embolism; K21.9 Gastro-esophageal reflux disease without esophagitis; F41.9 Anxiety disorder, unspecified; Z79.899 Other long term (current) drug therapy; I10 Essential (primary) hypertension; K76.0 Fatty (change of) liver, not elsewhere classified; F32.A Depression, unspecified; Z79.82 Long term (current) use of aspirin; M19.90 Unspecified osteoarthritis, unspecified site
CPT/HCPCS: 30140; 81025; 84443; J7120; J2405

== ENCOUNTER → 2022-09-22 | Outpatient (CLI) | payer OTHER, SELFPAY ==
--- NOTE | 2022-09-22 11:43 | RAD_ITS ---
EXAM: XR RIGHT ANKLE COMPLETE, 3 OR MORE VIEWS CLINICAL INDICATION: PAIN S/P FALL TECHNIQUE: Frontal, lateral and oblique views of the right ankle. This report was created using [employer] [place] report generation technology. COMPARISON: None. FINDINGS: BONES/JOINTS: There is a calcaneal spur. There is an enthesophyte involving the posterior superior calcaneus at the site of insertion of the Achilles tendon. No acute fracture. No subluxation. Normal alignment. Preservation of the joint space. No sclerotic or destructive changes observed. SOFT TISSUES: Unremarkable. No soft tissue swelling or gas. No radiopaque foreign body. RAD/Ankle min 3 Views IMPRESSION: No acute findings in the right ankle. Electronically Signed: David Guerrero MD at 15:27 EDT ,
--- NOTE | 2022-09-22 11:43 | RAD_ITS ---
INDICATION: PAIN S/P FALL EXAMINATION/TECHNIQUE: X-RAY - LEFT XR Knee 1 or 2 Views 2 VIEWS COMPARISON: None. FINDINGS: SOFT TISSUES: No soft tissue swelling or gas. No radiopaque foreign body. BONES/JOINTS: No acute fracture or subluxation.. Normal alignment. Preservation of the joint space.. No sclerotic or destructive changes observed. RAD/Knee 1 or 2 Views IMPRESSION: Negative. Electronically Signed: David Guerrero MD at 15:27 EDT ,
== END | disposition home or self-care (01) ==
LOC: RAD.FUTURE 11:38 → RAD 11:40
PROVIDERS: PCP Internal Medicine; Visit Provider Internal Medicine
DX: M25.571 Pain in right ankle and joints of right foot (principal); M25.562 Pain in left knee
CPT/HCPCS: 73560; 73610

== ENCOUNTER → 2022-10-08 | Outpatient (CLI) | payer OTHER, SELFPAY ==
--- NOTE | 2022-10-08 11:11 | BI_ITS ---
MAMMOGRAPHY - BILATERAL SCREENING REASON FOR EXAM: Female, 42 years old. Routine annual screening examination. PERTINENT HISTORY: Aunt with breast cancer. TECHNIQUE: Digital bilateral breast bam (3D mammographic acquisition) in the CC and MLO projections. 2-D mediolateral oblique (MLO) and craniocaudad (CC) views of both breasts were obtained. CAD: Full Field Digital Mammography with Computer Added Detection was performed. COMPARISON: Comparison is made with prior examination dated October 02, 2021 and July 20, 2020. FINDINGS: Breast Composition: There are scattered areas of fibroglandular density. There are no dominant masses or suspicious calcifications. Stable small benign-appearing bilateral axillary lymph nodes. No other significant abnormalities are identified. There has been no significant change since the prior study. BI/SCRN MAMM (CAD)W/BAM BILAT IMPRESSION: Stable bilateral screening mammogram. Yearly follow-up mammogram recommended. (A) ASSESSMENT CATEGORY: BIRADS Category 2: Benign. A letter regarding these results will be sent to the patient by the facility within 30 days. Approximately 10% of breast cancers are not detected by mammography. A normal mammogram should not delay biopsy of a clinically suspicious abnormality. [id number] Electronically Signed: Isaac Espinoza MD at 12:42 EDT ,
== END | disposition home or self-care (01) ==
LOC: OPBI 11:10
PROVIDERS: PCP Internal Medicine; Visit Provider Internal Medicine
DX: Z12.31 Encounter for screening mammogram for malignant neoplasm of breast (principal)
CPT/HCPCS: 77063; 77067

== ENCOUNTER → 2022-11-30 | Outpatient (CLI) | payer OTHER, SELFPAY ==
--- NOTE | 2022-11-30 17:45 | MRI_ITS ---
EXAM: MR LEFT LOWER EXTREMITY WITHOUT INTRAVENOUS CONTRAST, KNEE CLINICAL INDICATION: pain after fall, assess for medial meniscus tear TECHNIQUE: Multiplanar and multisequence MR images of the left knee without intravenous contrast. COMPARISON: April 03, 2018. FINDINGS: BONES/JOINTS: Small enchondroma identified along the central aspect of the femoral condyle. Marrow edema at the posterior lateral central aspect of the medial tibial plateau without fracture line. EXTENSOR MECHANISM: Unremarkable. MEDIAL MENISCUS: Unremarkable. No medial meniscal tear. LATERAL MENISCUS: Intrasubstance degenerative signal involving the posterior root ligament of the lateral meniscus (less meniscal tear although a low-grade tear is not entirely excluded). No other lateral meniscal tear. MEDIAL CAPSULE/SUPPORTING STRUCTURES: Unremarkable. Intact. LATERAL CAPSULE/SUPPORTING STRUCTURES: Unremarkable. Lateral collateral ligamentous complex, inclusive of the popliteal tendon, are intact. ANTERIOR CRUCIATE LIGAMENT: Unremarkable. Intact. POSTERIOR CRUCIATE LIGAMENT: Unremarkable. Intact. MUSCLES: Unremarkable. CARTILAGE: 1.3 cm area of full-thickness chondral loss at the median ridge and lateral patellar facet with subchondral cystic changes. FLUID: Unremarkable. No joint effusion. OTHER SOFT TISSUES: Unremarkable. No popliteal cyst. MRI/Lower Ext Joint Only (Routine) IMPRESSION: 1. 1.3 cm area of full-thickness chondral loss at the median ridge and lateral patellar facet with subchondral cystic changes. 2. Intrasubstance degenerative signal involving the posterior root ligament of the lateral meniscus (less meniscal tear although a low-grade tear is not entirely excluded). 3. Small enchondroma identified along the central aspect of the femoral condyle. Electronically Signed: Matthew Warren MD at 20:45 EDT ,
== END | disposition home or self-care (01) ==
LOC: MRI 17:41
PROVIDERS: PCP Internal Medicine; Referring Provider Orthopaedic Surgery Sports Medicine; Visit Provider Orthopaedic Surgery Sports Medicine
DX: M25.562 Pain in left knee (principal)
CPT/HCPCS: 73721

== ENCOUNTER 2023-01-11 09:30 | Outpatient (RCR) | payer OTHER, SELFPAY ==
--- NOTE | 2022-10-15 18:07 | HP.PTEVAL_ITS ---
Patient's Visit Information ILA CA is a 42 year old F referred to Physical Therapy by Dr. Franko Gross MD with a diagnosis of L knee pain. Date of Evaluation: 10/15/22 Physical Therapist: David Valadez, PT, ATC - Visit Plan Frequency: 2-3x /Week Duration: 4-6 Weeks Plan: L knee strengtheninging, balance and proprio, core stab ex's, and HEP - Subjective Pt reports she fell down the stairs 3 weeks ago. Pt notes she lives in a split level and twisted wrong, which made her fall down the stairs. Pt reports Pt reports she went the next day and had xrays taken. Pt notes no sig findings at that time. Pt was told she would see an orthopedic doctor in 3 days if she had no improvements. Pt notes the pain stayed the same so she went to her orhto. Pt reports she had surgery 4 mos ago for a torn meniscus. Pt reports she is here to day to see if PT will help her to feel better. Pt denies tingling or numbness at this time. Pt reports sleep difficulty secondary to pain. Pt reports difficulty with stair negotiation secondary to pain. Pt reports L knee has been popping, but not giving out. L knee pain is 3/10 at rest, but notes the pain increases to 8/10 at worst (when she is sitting for a while and attempts to stand) - Pain L knee pain Pain Intensity (Out of 10): 3 Pain Intensity Range: 8 - Objective Neuro: B LE sensation is WNL to light touch. Palpation: Pt is most sore along the medial joint line of the L knee. Crepitus is obvious with ROM. ROM: R knee 0-115 degrees, L knee 0-80 degrees. MMT: R knee flex= 37, ext= 47 #F, L knee flex= 17, ext= 17 #F. Special tests: No pos tests this date - Balance/Special Test Scores Lower Extremity Functional Score: 34 - Goals Goal 1:: Decrease L knee pain x 50% to aid with sleep Goal Time Frame: 4-6 Weeks Goal 2:: Increase L knee ROM x 30 degrees to aid with restoring a more normalized gait pattern Goal Time Frame: 4-6 Weeks Goal 3:: Increase L knee strength x 10 #F to aid with stair negotiation Goal Time Frame: 4-6 Weeks Goal 4:: I with HEP Goal Time Frame: 4-6 Weeks - Rehabilitation Potential Physical Therapy Diagnosis: Pt has L knee pain, weakness, and limited ROM secondary to possible med meniscus repair Rehabilitation Potential: Good - Anticipated Interventions Patient/Client Instruction: Educate patient on: Condition, Plan of Care For the Purpose of:: To improve self management Therapeutic Exercise to Include: Strength training, Endurance training, Balance training, Gait and locomotor training, Active ROM, Dynamic Lumbar Stabilization For the Purpose of:: To decrease pain, To increase ROM, To improve muscle performance and motor function Cryotherapy (ice pack, ice massage): Yes For the Purpose of:: To decrease pain Thank you for the opportunity to evaluate your patient. For Medicare and Medicare HMO plans, please review the plan of care and approve it. It will need to be FAXED BACK to us at [phone] for Medicare purposes. For Medicare only, by signing this I certify the plan of care. Please let me know if there are questions or concerns regarding this plan of care. Physician Signature: Date:
--- NOTE | 2022-11-05 17:31 | HP.PTREVAL ---
Dr. Franko Gross MD, It has been my pleasure to treat ILA CA over the last 7 visits for L knee pain. Please see the progress note below for an update on the physical therapy plan of care! Subjective: I am getting better Objective/Function: Pain is ranging from 3-7/10. L knee MMT: flex= 32, ext= 54. L knee ROM: 0-97. Pt has made significant gains with ROM and strength, but remains limited by pain Plan Plan: L knee strengthening, balance and proprio, core stab ex's, and HEP Balance/Gait/Functional tests - Balance/Special Test Scores Lower Extremity Functional Score: 39 Goals Goal 1:: Decrease L knee pain x 50% to aid with sleep Goal Time Frame: 4-6 Weeks Goal Progress: Progressing Goal 2:: Increase L knee ROM x 30 degrees to aid with restoring a more normalized gait pattern Goal Time Frame: 4-6 Weeks Goal 3:: Increase L knee strength x 10 #F to aid with stair negotiation Goal Time Frame: 4-6 Weeks Goal 4:: I with HEP Goal Time Frame: 4-6 Weeks Anticipated Interventions Patient/Client Instruction: Educate patient on: Condition, Plan of Care For the Purpose of:: To improve self management Therapeutic Exercise to Include: Strength training, Endurance training, Balance training, Gait and locomotor training, Active ROM, Dynamic Lumbar Stabilization For the Purpose of:: To decrease pain, To increase ROM, To improve muscle performance and motor function Cryotherapy (ice pack, ice massage): Yes For the Purpose of:: To decrease pain Please do not hesitate to contact me at [phone] by phone or if you have questions or concerns regarding this new plan of care! Sincerely, David Valadez, PT, ATC
--- NOTE | 2023-01-11 10:05 | HP.PTDCSUM ---
Discharge Summary D/C summary: It has been my pleasure to treat ILA CA referred by Dr. Franko Gross MD, with the diagnosis of L knee pain for a total of 13 visit(s). Discharge Date: Please see the following information for a summary of their discharge status. Subjective Subjective: Pt reports she is feeling a lot better now. Pt reports she is able to sit now and can get in/out of the car. Pt reports the sharp pain is gone now Pain L knee pain: Pain Intensity (Out of 10): 1 Overall Improvement % Improvement: 80 Objective Objective/Function: L knee pain 07/17 L knee MMT: flex= 33, ext= 55 #F L knee ROM: 0-100 degrees I with HEP. Rx goals achieved Goals Goal 1:: Decrease L knee pain x 50% to aid with sleep Goal Progress: Goal Met Goal 2:: Increase L knee ROM x 30 degrees to aid with restoring a more normalized gait pattern Goal Progress: Goal Met Goal 3:: Increase L knee strength x 10 #F to aid with stair negotiation Goal Progress: Goal Met Goal 4:: I with HEP Goal Progress: Goal Met Plan Plan: Discharge D/C Information d/c sentence: If there are questions or concerns regarding this patient's physical therapy, please feel free to call me at [phone]. Thank you for the referral of this patient. Sincerely, David Valadez, PT, ATC Balance/Gait/Functional tests Balance/Special Test Scores Lower Extremity Functional Score: 71
== END 2023-01-11 19:00 | disposition home or self-care (01) ==
LOC: PT 09:30
PROVIDERS: PCP Internal Medicine; Referring Provider Orthopaedic Surgery Sports Medicine; Visit Provider Orthopaedic Surgery Sports Medicine
DX: M17.12 Unilateral primary osteoarthritis, left knee (principal)
CPT/HCPCS: 97110; 97161; 97164; 97530

== ENCOUNTER → 2023-10-10 | Outpatient (CLI) | payer OTHER, SELFPAY ==
--- NOTE | 2023-10-10 11:58 | BI_ITS ---
MAMMOGRAPHY - BILATERAL SCREENING REASON FOR EXAM: Female, 43 years old. Routine annual screening examination. PERTINENT HISTORY: Aunt with breast cancer. TECHNIQUE: Digital bilateral breast bam (3D mammographic acquisition) in the CC and MLO projections. 2-D mediolateral oblique (MLO) and craniocaudad (CC) views of both breasts were obtained. CAD: Full Field Digital Mammography with Computer Added Detection was performed. COMPARISON: Comparison is made with prior study of October 08, 2022 and October 02, 2021. FINDINGS: Breast Composition: There are scattered areas of fibroglandular density. There are no dominant masses or suspicious calcifications. Stable small benign-appearing bilateral axillary lymph nodes. No other significant abnormalities are identified. There has been no significant change since the prior study. BI/SCRN MAMM (CAD)W/BAM BILAT IMPRESSION: Stable bilateral screening mammogram. Yearly follow-up mammogram recommended. (A) ASSESSMENT CATEGORY: BIRADS Category 2: Benign. A letter regarding these results will be sent to the patient by the facility within 30 days. Approximately 10% of breast cancers are not detected by mammography. A normal mammogram should not delay biopsy of a clinically suspicious abnormality. [id number] Electronically Signed: Isaac Espinoza MD at 13:02 EDT ,
== END | disposition home or self-care (01) ==
LOC: OPBI 11:58
PROVIDERS: PCP Internal Medicine; Referring Provider Internal Medicine; Visit Provider Internal Medicine
DX: Z12.31 Encounter for screening mammogram for malignant neoplasm of breast (principal)
CPT/HCPCS: 77063; 77067

== ENCOUNTER → 2024-03-17 | Outpatient (CLI) | payer OTHER, SELFPAY ==
--- NOTE | 2024-03-17 10:51 | VDLE_ITS ---
Reason For Study: LLE PAIN Procedure LEFT This is a venous duplex using B-mode, color GSV is normal. flow and spectral Doppler. CFV is compressible, spontaneous, phasic, Exam performed in department. competent, and demonstrates normal The study was technically difficult. augmentation. Due to body habitus. FV is compressible, spontaneous, phasic, A preliminary report was called and/or faxed competent and demonstrates normal to Dr. Styles @ [phone] @ 11:20 am. augmentation. POP V is compressible, spontaneous, phasic, competent and demonstrates normal augmentation. T/P Trunk is compressible. PTV is compressible. LT PerV is compressible. VL/Venous Duplex US, Unilateral Interpretation Summary Deep veins of the left lower extremity are patent and compressible segmentally. There is no evidence of left lower extremity deep vein thrombosis. Valvular competence appears intac t within the proximal deep venous system on the left . The left great saphenous vein appears patent a nd compressible segmentally. Ordering Physician: Rosalva Styles Referring Physician: Rosalva Styles Performed By: Carmel Cortes, RDCS, RVT
== END | disposition home or self-care (01) ==
LOC: CVS 10:46
PROVIDERS: PCP Internal Medicine; Referring Provider Internal Medicine; Visit Provider Internal Medicine
DX: M79.662 Pain in left lower leg (principal)
CPT/HCPCS: 93971

== ENCOUNTER 2024-06-26 17:23 | Emergency (ER) | payer OTHER, SELFPAY ==
[2024-06-26 17:24] VITALS: BP 172/117; PULSE 90; RESP 16; TEMP 36.7; O2SAT 97; BMI 50.2
--- NOTE | 2024-06-26 19:44 | EDS_ITS ---
HPI History of Present Illness HPI Narrative: Patient presents with pain to her left calf that has been getting worse over the past week. Patient states it is gradually getting worse. Patient describes her pain as aching and like there is a band around her calf. Patient states it is worse with prolonged sitting. Patient denies any paresthesias or weakness. Patient states nothing seems to help with the pain. Patient denies any fevers or chills. Patient denies any chest pain or shortness of breath. Chief Complaint: Lower Extremity Injury Informant: patient Onset/Context/Timing Onset: Weeks (1) Context: Gradual Onset Timing: Continuous Quality of Pain: Aching Location: Left calf Worsened by: Sitting Relieved by: Nothing Associated Symptoms Associated Symptoms: Negative for Parasthesia, Weakness or Loss of Funtion PFSH [facility] Medical History Osteoarthritis of left knee Left knee pain Antiphospholipid antibody syndrome Depression Anxiety Hx of Vic thyroiditis Arthritis Fatty liver History of IBS Gastric reflux Non-smoker History of stress test Hypertension Home Medications ?Medication ?Instructions ?Recorded ?Last Taken ?Type cholecalciferol (vitamin D3) 25 5,000 unit PO DAILY 02/01/15 Unknown History mcg (1,000 unit) tablet (Vitamin D3) sertraline 50 mg tablet 100 mg PO QHS 02/01/15 Unknown History spironolactone 100 mg tablet 200 mg PO QHS 02/01/15 Unknown History (Aldactone) aspirin 81 mg tablet,delayed 81 mg PO QHS 02/02/15 01/29/22 History release L.acidoph,paracasei,B.animalis 10 1 ea PO DAILY 05/21/18 Unknown History billion cell capsule ascorbic acid (vitamin C) 1,000 mg 1,000 mg PO DAILY 01/29/22 Unknown History tablet,extended release (Vitamin C ER) levonorgestrel (Mirena) 20 mcg intrauterine DAILY 01/29/22 Unknown History pantoprazole 40 mg tablet,delayed 40 mg PO QHS 01/29/22 Unknown History release zinc 50 mg capsule 50 mg PO DAILY 01/29/22 Unknown History azithromycin 500 mg tablet tablet PO 10/08/22 Unknown History Allergy/AdvReac Type Severity Reaction Status Date / Time amoxicillin Allergy Rash Verified 06/26/24 17:24 tobramycin Allergy Other Verified 06/26/24 17:24 adhesive tape AdvReac Rash Verified 06/26/24 17:24 chlorhexidine AdvReac Rash Verified 06/26/24 17:24 Surgical History History of esophagogastroduodenoscopy (EGD) Hx laparoscopic cholecystectomy Hx of wisdom tooth extraction Hx of arthroscopic knee surgery History of Social History Smoking Status: Never smoker alcohol intake: never ROS ROS ED Constitutional Constitutional ED: Denies chills or fever(s) Eyes Eyes: Denies blurry vision or change in vision ENT ENT ED: Denies rhinorrhea or sore throat Cardiovascular Cardiovascular: Denies chest pain or palpitations Respiratory/Chest Respiratory/Chest: Denies cough or dyspnea Gastrointestinal Gastrointestinal: Denies nausea or vomiting Genitourinary Genitourinary ED: Denies dysuria or hematuria Musculoskeletal Musculoskeletal: Reports back pain; Denies neck pain Integumentary Denies abscess or rash Neurologic Neurologic: Denies headache(s) or weakness Allergic/Immunologic Allergic/Immunologic ED: Denies mouth swelling or urticaria EXAM Physical Exam Const Vital Signs: 06/26/24 17:24 06/26/24 20:59 Temperature 98.0 F 98.2 F Temperature Source Oral Pulse Rate 90 84 Respiratory Rate 16 18 Blood Pressure 172/117 H 101/69 Blood Pressure Mean 135 79 Pulse Ox 97 95 Oxygen Delivery Method Room Air Positive well nourished and well developed General Appearance ED: well developed and NAD HEENT Reports moist mucous membranes Neck full ROM and supple Extremity Extremity Narrative: There is mild tenderness over the left calf. There is no mild edema. There is no ecchymosis. There is no bony crepitance or step-off. There is good range of motion. Pedal pulses are equal bilaterally. Sensation was intact to light touch bilaterally in the lower extremities. Strength is 5/5 bilaterally in the lower extremities. Neuro oriented x3, CN's II-XII intact bilaterally, moves all extremities and no se nsory deficits noted Sensorium / Orientation: alert Motor Exam: strength 5/5 throughout Psych mental status grossly normal MDM MDM MDM Narrative Medical decision making narrative: Differential diagnosis includes DVT, and muscle strain. Venous duplex of the left lower extremity will be obtained to assess for DVT. Radiography Diagnostic Testing: Clinical Impression(s) from Imaging Studies Venous Duplex 06/26/24 20:06 IMPRESSION: Limited study due to patient body habitus but no definitive evidence of deep venous thrombosis. Electronically Signed: Yan Weinstein MD at 20:53 EST Reading Location ID and State: [address] [place] [address] Tel , Service support , Venous duplex of the left lower extremity was obtained. There is no evidence of DVT. This was interpreted by the radiologist and was also independently reviewed by myself. Treatment and Re-Evaluation Narrative: Patient was advised of her findings. Patient was instructed to keep her leg elevated. Patient was instructed to take Tylenol or ibuprofen as needed for pain. Patient was instructed to follow-up with her primary care physician in 5 to 7 days. Patient was instructed return if worse in any way. Patient understood and was agreeable with the plan. All questions were answered. Discharge Plan Triage Chief Complaint: Lower Extremity Injury ED Provider: Andrew Pinzon Dx/Rx/DC Orders Clinical Impression: Strain of left calf muscle Instructions: ED Muscle Strain, Extremity Prescriptions: No Action azithromycin 500 mg tablet PO spironolactone [Aldactone] 100 MG tablet 200 mg PO QHS sertraline 50 MG tablet 100 mg PO QHS cholecalciferol (vitamin D3) [Vitamin D3] 1,000 UNIT tablet 5,000 unit PO DAILY aspirin 81 MG tablet 81 mg PO QHS L.acidoph,paracasei,B.animalis 1 EACH capsule 1 ea PO DAILY Mirena 20 mcg/24 hours (7 yrs) 52 mg Intrauterine Device 20 mcg INTRAUTERINE DAILY Vitamin C 1,000 mg Tablet Extended Release 1,000 mg PO DAILY pantoprazole 40 mg Tablet,Delayed Release (Dr/Ec) 40 mg PO QHS zinc 50 mg Capsule 50 mg PO DAILY Primary Care Provider: Rosalva Styles Referrals: Rosalva Styles MD [Primary Care Provider] - 5-7 Days Print Language: Maltese Disposition Disposition: Home, Self Care
--- NOTE | 2024-06-26 20:06 | US_ITS ---
STUDY: VENOUS DOPPLER ULTRASOUND - LEFT LOWER EXTREMITY REASON FOR EXAM: Female, 44 years old. LEFT CALF PAIN TECHNIQUE: Ultrasound evaluation of the deep vein system to include becerril-scale imaging and compression was performed. Becerril-scale imaging and Doppler sonographic evaluation, including duplex spectral analysis and qualitative color flow sonography, was performed. COMPARISON: None. FINDINGS: Limited due to patient body habitus Common Femoral Vein: Normal compression, spontaneity and augmentation. Normal color Doppler. Common Femoral Vein/Greater Saphenous Junction: Normal compression, spontaneity and augmentation. Normal color Doppler. Deep Femoral Vein: Normal compression, spontaneity and augmentation. Normal color Doppler. Femoral Proximal: Normal compression, spontaneity and augmentation. Normal color Doppler. Femoral Middle: Normal compression, spontaneity and augmentation. Normal color Doppler. Femoral Distal: Normal compression, spontaneity and augmentation. Normal color Doppler. Popliteal Vein: Normal compression, spontaneity and augmentation. Normal color Doppler. Posterior Tibial Vein: Normal compression, spontaneity and augmentation. Normal color Doppler. Peroneal Vein: Normal compression, spontaneity and augmentation. Normal color Doppler. US/Venous Duplex Imag/Limited/Uni IMPRESSION: Limited study due to patient body habitus but no definitive evidence of deep venous thrombosis. Electronically Signed: Yan Weinstein MD at 20:53 EST ,
[2024-06-26 20:59] VITALS: BP 101/69; PULSE 84; RESP 18; TEMP 36.8; O2SAT 95
== END 2024-06-26 21:24 | disposition home or self-care (01) ==
PROVIDERS: Emergency Provider Emergency Medicine; PCP Internal Medicine; Visit Provider Emergency Medicine
DX: S86.112A Strain of other muscle(s) and tendon(s) of posterior muscle group at lower leg level, left leg, initial encounter (principal); X58.XXXA Exposure to other specified factors, initial encounter; I10 Essential (primary) hypertension; D68.61 Antiphospholipid syndrome; F32.A Depression, unspecified; F41.9 Anxiety disorder, unspecified; K21.9 Gastro-esophageal reflux disease without esophagitis; M17.12 Unilateral primary osteoarthritis, left knee; Z88.0 Allergy status to penicillin; Z79.82 Long term (current) use of aspirin; Z90.49 Acquired absence of other specified parts of digestive tract; Z79.899 Other long term (current) drug therapy
CPT/HCPCS: 93971; 99282

== ENCOUNTER → 2024-08-08 | Outpatient (CLI) | payer OTHER, SELFPAY ==
[2024-08-08 10:28] LABS: Anion Gap 7 (5-15); BUN 12 mg/dL (7-18); BUN/Creat Ratio 11.8 RATIO (10-20); Calcium,Total 9.3 mg/dL (8.5-10.1); Chloride 108 mmol/L (98-107); Creatinine, Serum 1.02 mg/dL (0.55-1.02); EST Glomerular Filtration Rate 63 mL/min (>60); Est Glom Filt Rate - Afr Amer 76 mL/min (>60); Glucose 123 mg/dL (74-106); Potassium 3.8 mmol/L (3.5-5.1); Sodium Level 139 mmol/L (136-145)
== END | disposition home or self-care (01) ==
LOC: LAB 09:27
PROVIDERS: PCP Internal Medicine; Referring Provider Internal Medicine; Visit Provider Internal Medicine
DX: E11.29 Type 2 diabetes mellitus with other diabetic kidney complication (principal)
CPT/HCPCS: 36415; 80048

== ENCOUNTER 2024-08-12 16:03 | Outpatient (RCR) | payer OTHER, SELFPAY | END 2024-09-04 23:59 | LOC: NS 16:03 | PROVIDERS: PCP Internal Medicine; Visit Provider Internal Medicine | DX: Z71.3 Dietary counseling and surveillance (principal); E11.29 Type 2 diabetes mellitus with other diabetic kidney complication | CPT/HCPCS: 97802 ==

== ENCOUNTER 2024-08-19 16:30 | Outpatient (RCR) | payer OTHER, SELFPAY ==
--- NOTE | 2024-07-23 17:04 | HP.PTEVAL ---
Patient's Visit Information Visit Information Visit Information: ILA CA is a 44 year old F referred to Physical Therapy by Dr. Rosalva Styles MD with a diagnosis of LBP/LEFT LEG PAIN. Date of Evaluation: 07/23/24 Physical Therapist: Sancho Snider PT, Cert MDT, OCS Visit Plan Frequency: 2x /Week Duration: 4 Weeks Plan: PT INTERVENTIONS EUGENE EX'S ,STRETCHING ANR/CALF ,MANUAL THERAPY ,POSTURAL EX'S /CORE STRENGTHENING Subjective Subjective: This 44 y/o female presents to physical therapy with low back pain with left leg pain. Patient has left calf pain with radiating symptoms in left leg. Patient fell in january. Seen DR churchill PT ,initially had US to clot . Aggravating sitting ,walking ,Alleviating factors sanding and rest. Denies paresthesia/tingling. No medication. Patient no prior treatment. Patient had left arthroscopic knee. Coughing/sneezing-. Bowel/bladder - .Patient sleeping good. Patient pain affects QOL and function. Patient goals to decrease pain. 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[employer] SOCAIL: Pain Left Lower Extremity: Pain Intensity (Out of 10): 5 Pain Intensity Range: 10 Comment: calf Objective Objective: POSTURE: mild forward posture GAIT:reciprocal pattern PALAPTION: mid calf FLEXABILITY : min tight hamstrings with +( ANR) LUMBAR ROM: flexion min loss calf symptoms,extension min loss ,side glides WFL MMT: quads/hams 4/5 ,hip flexion 4/5 ,ankle 5/5 Special Tests L/S Slump test left side: Positive L/S Slump test right side: Negative L/S Left Straight Leg Raise: Positive L/S Right Straight Leg Raise: Negative Lumbar Standing: Flexion - Mechanical Response: No effect Lumbar Standing: Flexion - Symptoms During Testing: Increases Lumbar Standing: Flexion - Symptoms After Testing: No worse Lumbar Standing: Extension - Mechanical Response: No effect Lumbar Standing: Extension - Symptoms During Testing: Decreases Lumbar Standing: Extension - Symptoms After Testing: No better Lumbar Standing: Right Side Glides - Mechanical Response: No effect Lumbar Standing: Right Side [place] - Symptoms During Testing: No effect Lumbar Standing: Right Side [place] - Symptoms After Testing: No effect Lumbar Standing: Left Side [place] - Mechanical Response: No effect Lumbar Standing: Left Side [place] - Symptoms During Testing: No effect Lumbar Standing: Left Side [place] - Symptoms After Testing: No effect Lumbar Lying: Flexion - Mechanical Response: No effect Lumbar Lying: Flexion - Symptoms During Testing: No effect Lumbar Lying: Flexion - Symptoms After Testing: No effect Lumbar Lying: Extension - Mechanical Response: No effect Lumbar Lying: Extension - Symptoms During Testing: Decreases Lumbar Lying: Extension - Symptoms After Testing: Better Balance/Special Test Scores Oswestry Low Back Score: 11 Goals Goal 1:: Patient to be I with HEP for back and stretching Goal Time Frame: 4-6 Weeks Goal 2:: Patient to improve lumbar ROM for function of recovery when bending for putting on shoes Goal Time Frame: 4-6 Weeks Goal 3:: Patient to improve back oswestry score by 5 points to improve QOL and function Goal Time Frame: 4-6 Weeks Goal 4:: Patient to improve ANR to improve mobility adn QOL Goal Time Frame: 4-6 Weeks Goal 5:: Patient to demonstrate 50% improvement with less pain and improved function Goal Time Frame: 4-6 Weeks Rehabilitation Potential Physical Therapy Diagnosis: This patient has left + ANR with pain with sitting and + slump test better with standing and some mild tenderness in calf thus benefit from skilled PT Rehabilitation Potential: Good Anticipated Interventions Patient/Client Instruction: Educate patient on: Condition and Plan of Care For the Purpose of:: To decrease pain, To increase ROM, To improve muscle performance and motor function, To increase tolerance to activity/condition/position, To improve ability of physical actions for home/community/work/leisure, To improve health of tissue, To decrease soft tissue restriction, To increase flexibility/ROM and To improve tolerance to ADL's Therapeutic Exercise to Include: Strength training, Postural training, Flexibilty training and Dynamic Lumbar Stabilization For the Purpose of:: To decrease pain, To increase ROM, To improve nutrient delivery to tissue, To increase oxygenation perfusion, To improve muscle performance and motor function, To improve ability to perform ADL's, To improve ability of physical actions for home/community/work/leisure, To improve health of tissue, To decrease soft tissue restriction, To increase flexibility/ROM, To reduce risk of recurrence and To prevent re-injury Manual Therapy Techniques to Include: Soft tissue mobilization Comment: CALF STICK For the Purpose of:: To decrease pain, To increase ROM, To improve nutrient delivery to tissue, To increase oxygenation perfusion, To improve muscle performance and motor function, To improve ability of physical actions for home/community/work/leisure and To improve health of tissue TENS: Yes IF ES: Yes Cryotherapy (ice pack, ice massage): Yes Thermo therapy (hot pack): Yes Ultrasound (thermal/non thermal): Yes For the Purpose of:: To decrease pain, To improve nutrient delivery to tissue, To increase oxygenation perfusion, To improve health of tissue and To decrease soft tissue restriction Text: Thank you for the opportunity to evaluate your patient. For Medicare and Medicare HMO plans, please review the plan of care and approve it. It will need to be FAXED BACK to us at [phone] for Medicare purposes. For Medicare only, by signing this I certify the plan of care. Please let me know if there are questions or concerns regarding this plan of care. Physician Signature: Date:
--- NOTE | 2024-08-19 17:02 | HP.PTDCSUM ---
Discharge Summary D/C summary: It has been my pleasure to treat ILA CA referred by Dr. Rosalva Styles MD, with the diagnosis of LBP/LEFT LEG PAIN for a total of 8 visit(s). Discharge Date: 08/19/24 Please see the following information for a summary of their discharge status. Subjective Subjective: Did better with stretches Sitting is worse but gail roll helps Pain Left Lower Extremity: Pain Intensity (Out of 10): 2 Overall Improvement % Improvement: 50 Objective Objective/Function: POSTURE: mild forward posture GAIT:reciprocal pattern PALAPTION: mid calf FLEXABILITY : min tight hamstrings with +( ANR) LUMBAR ROM: flexion min loss calf symptoms,extension min loss ,side glides WFL MMT: quads/hams 4/5 ,hip flexion 4/5 ,ankle 5/5 Goals Goal 1:: Patient to be I with HEP for back and stretching Goal Progress: Goal Met Goal 2:: Patient to improve lumbar ROM for function of recovery when bending for putting on shoes Goal Progress: Goal Met Goal 3:: Patient to improve back oswestry score by 5 points to improve QOL and function Goal Progress: Goal Met Goal 4:: Patient to improve ANR to improve mobility adn QOL Goal Progress: Goal Met Goal 5:: Patient to demonstrate 50% improvement with less pain and improved function Goal Progress: Goal Met Plan Plan: D/C D/C Information Discharge Comments: HEP d/c sentence: If there are questions or concerns regarding this patient's physical therapy, please feel free to call me at [phone]. Thank you for the referral of this patient. Sincerely, Sancho Snider, PT, Cert MDT, OCS Balance/Gait/Functional tests Balance/Special Test Scores Oswestry Low Back Score: 1 Improvement % Improvement: 50
== END 2024-08-19 19:00 | disposition home or self-care (01) ==
LOC: PT 16:30
PROVIDERS: PCP Internal Medicine; Referring Provider Internal Medicine; Visit Provider Internal Medicine
DX: M54.50 Low back pain, unspecified (principal); M79.662 Pain in left lower leg
CPT/HCPCS: 97110; 97161

== ENCOUNTER 2024-09-09 16:30 | Outpatient (RCR) | payer OTHER, SELFPAY | END 2024-10-05 23:59 | LOC: NS 16:30 | PROVIDERS: PCP Internal Medicine; Referring Provider Internal Medicine; Visit Provider Internal Medicine | DX: Z71.3 Dietary counseling and surveillance (principal); E11.29 Type 2 diabetes mellitus with other diabetic kidney complication; E11.43 Type 2 diabetes mellitus with diabetic autonomic (poly)neuropathy; K31.84 Gastroparesis; F42.9 Obsessive-compulsive disorder, unspecified; D68.61 Antiphospholipid syndrome | CPT/HCPCS: 97803 ==

== ENCOUNTER → 2024-10-03 | Outpatient (CLI) | payer OTHER, SELFPAY ==
[2024-10-03 13:03] LABS: Hemoglobin A1c 6.1 % (<=5.6)
[2024-10-03 13:10] LABS: Hepatitis B Surface Antigen Nonreactive (Nonreactive); Hepatitis C Antibody Nonreactive (Nonreactive)
[2024-10-03 15:09] LABS: Ferritin 45 ng/mL (22-378); Iron 72 ug/dL (50-170); Iron Binding Capacity,Total 348 ug/dL (250-450); Iron Binding Capacity,Unsat 276 ug/dL (228-428)
[2024-10-03 15:54] LABS: Cholesterol 176 mg/dL (<=200); High Density Lipoprotein 35 mg/dL; Low Density Lipoprotein Calc. 115 mg/dL; Triglycerides 128 mg/dL; Very Low Density Lipoprotein 26 mg/dL (5-40); cholesterol:hdl ratio screen 4.99
[2024-10-03 15:59] LABS: ALB/GLOB Ratio 1.6 RATIO (0.9-2.4); AST(SGOT) 20 U/L (<=31); Alanine Aminotransfer ALT/SGPT 31 U/L (<=34); Albumin, Serum 4.4 g/dL (3.5-5.0); Anion Gap 13 (5-15); BUN 13 mg/dL (4-19); BUN/Creat Ratio 15.4 RATIO (10-20); Calcium,Total 9.7 mg/dL (7.6-11.0); Carbon Dioxide 20.4 mmol/L (21.0-32.0); Chloride 108 mmol/L (98-108); Creatinine, Serum 0.85 mg/dL (0.70-1.20); EST Glomerular Filtration Rate 87 (>60); Globulin 2.8 g/dL (2.2-4.2); Glucose 117 mg/dL (70-99); Protein, Total 7.2 g/dL (5.9-8.4); Sodium Level 141 mmol/L (133-145); Total Bilirubin 0.39 mg/dL (0.00-1.30)
[2024-10-03 16:16] LABS: Alkaline Phosphatase 77 U/L (35-104)
[2024-10-05 15:08] LABS: ANTINUCLEAR ANTIBODIES DIRECT Positive (Negative); Anti-Mitochondrial AB <20.0 Units (0.0-20.0); Anti-Smooth Muscle ABS 9 Units (0-19); Ceruloplasmin 23.5 mg/dL (19.0-39.0); Hepatitis A AB, Total Negative (Negative); Hepatitis B Core Ab Total Negative (Negative); t-Transglutaminase IgA <2 U/mL (0-3)
== END | disposition home or self-care (01) ==
LOC: LAB 09:45
PROVIDERS: PCP Internal Medicine; Referring Provider Internal Medicine; Visit Provider Internal Medicine
DX: E11.29 Type 2 diabetes mellitus with other diabetic kidney complication (principal); K76.0 Fatty (change of) liver, not elsewhere classified; K21.9 Gastro-esophageal reflux disease without esophagitis; K58.0 Irritable bowel syndrome with diarrhea; K31.84 Gastroparesis; E55.9 Vitamin D deficiency, unspecified; F41.9 Anxiety disorder, unspecified; E78.5 Hyperlipidemia, unspecified; E66.9 Obesity, unspecified; F42.9 Obsessive-compulsive disorder, unspecified; D68.61 Antiphospholipid syndrome; M19.90 Unspecified osteoarthritis, unspecified site
CPT/HCPCS: 36415; 80053; 80061; 82390; 82728; 83036; 83516; 83540; 83550; 84443; 86038; 86704; 86708; 86803; 87340

== ENCOUNTER 2024-10-07 16:31 | Outpatient (RCR) | payer OTHER, SELFPAY | END 2024-11-04 23:59 | LOC: NS 16:31 | PROVIDERS: PCP Internal Medicine; Referring Provider Internal Medicine; Visit Provider Internal Medicine | DX: Z71.3 Dietary counseling and surveillance (principal); E11.29 Type 2 diabetes mellitus with other diabetic kidney complication; E11.43 Type 2 diabetes mellitus with diabetic autonomic (poly)neuropathy; K31.84 Gastroparesis; F42.9 Obsessive-compulsive disorder, unspecified | CPT/HCPCS: 97803 ==

== ENCOUNTER → 2024-10-30 | Outpatient (CLI) | payer OTHER, SELFPAY ==
--- NOTE | 2024-10-30 13:11 | US_ITS ---
PROCEDURE: EXT NON VASCULAR LIMITED/SOFT TISSUE 10/30/2024 REASON FOR EXAM: MASS OF RIGHT AXILLA TECHNIQUE: Ultrasound targeted to the palpable abnormality at the right axilla.. COMPARISON: No relevant prior. FINDINGS: Normal-appearing lymph node in the right axilla measuring 1.5 x 2.0 x 0.9 cm. A small subcutaneous complex nodule measuring 0.3 x 0.5 x 0.1 cm. US/Ext Non Vasc Limited/Soft Tiss IMPRESSION: Normal-appearing lymph node in the right axilla. Suspicion of a small sebaceous subcutaneous cyst. Reading Location: [id number]
--- NOTE | 2024-10-30 13:52 | BI_ITS ---
EXAM: SCRN MAMM (CAD)W/BAM BILAT DATE: 10/30/2024 CLINICAL HISTORY: F, Age 44 y/o , SCREENING BREAST CANCER RISK ASSESSMENT: Has not been calculated. TECHNIQUE: Bilateral screening digital breast tomosynthesis with 2D and 3D images. Computer aided detection. COMPARISON: Prior exam(s) dated 10/10/2023 and 10/08/2022. FINDINGS: TISSUE DENSITY: The breast tissue is almost entirely fatty. Bilateral Breast Mammographic Findings: No suspicious masses, suspicious cluster of microcalcifications, architectural distortion or secondary sign of malignancy is identified in either breast. Benign-appearing round and punctate calcifications are seen in both breasts. Benign-appearing axillary lymph nodes are seen bilaterally. BI/SCRN MAMM (CAD)W/BAM BILAT IMPRESSION: OVERALL FINAL ASSESSMENT: BIRADS 2 BENIGN FINDING RECOMMENDATION: Routine annual follow-up in 1 Year A letter with findings and recommendations will be mailed to the patient. Reading Location: [id number]
== END | disposition home or self-care (01) ==
PROVIDERS: PCP Internal Medicine; Referring Provider Internal Medicine; Visit Provider Internal Medicine
DX: Z12.31 Encounter for screening mammogram for malignant neoplasm of breast (principal); R22.31 Localized swelling, mass and lump, right upper limb
CPT/HCPCS: 76882; 77063; 77067

== ENCOUNTER 2024-11-18 16:29 | Outpatient (RCR) | payer OTHER, SELFPAY | END 2024-12-05 23:59 | LOC: NS 16:29 | PROVIDERS: PCP Internal Medicine; Referring Provider Internal Medicine; Visit Provider Internal Medicine | DX: Z71.3 Dietary counseling and surveillance (principal); E11.29 Type 2 diabetes mellitus with other diabetic kidney complication; E11.43 Type 2 diabetes mellitus with diabetic autonomic (poly)neuropathy; K31.84 Gastroparesis; F42.9 Obsessive-compulsive disorder, unspecified | CPT/HCPCS: 97803 ==

== ENCOUNTER 2024-11-24 11:03 | Day surgery (SDC) | payer OTHER, SELFPAY ==
[2024-11-24] VITALS (8 sets, daily range): BP systolic 130–168; BP diastolic 71–95; PULSE 61–75; RESP 14–18; TEMP 36.1–36.4; O2SAT 92–97; BMI 45.8
--- NOTE | 2024-11-24 11:09 | PCM.PRE.AN2 ---
ASA Classification* ASA Classification ASA Classification: 2 Assessment & Plan Anesthesia* Anesthesia Assessment Anesthesia Assessment: Discussed sedation and/or anesthesia options, risks, benefits, and alternatives with patient/parents/legal guardian/POA. Questions invited. The patient/parents/legal guardian/POA seems to understand and agrees to proceed with anesthesia plan. Reviewed the physical assessment, medical history, allergy history and patient home medications list prior to surgery/procedure/anesthetic and documented any changes. Performed airway and anesthesia risk assessments. Anesthesia Type Anesthesia Type: MAC Anesthesia Focused Assessment* Airway Assessment Mouth opens: >3 cm Mallampati Score: II Focused Labs Anesthesia Preop lab: CBC WBC 9.2 K/mm3 (4.4-11.0) 08/19/20 11:14 08/19/20 RBC 5.05 M/mm3 (4.2-5.4) 08/19/20 11:14 08/19/20 Hgb 14.2 g/dL (12.0-15.0) 08/19/20 11:14 08/19/20 Hct 43.7 % (37-47) 08/19/20 11:14 08/19/20 Plt Count 250 K/mm3 (150-450) 08/19/20 11:14 08/19/20 CHEMISTRY Potassium 4.0 mmol/L (3.3-5.1) 10/03/24 09:49 10/03/24 Sodium 141 mmol/L (133-145) 10/03/24 09:49 10/03/24 BUN 13 mg/dL (4-19) 10/03/24 09:49 10/03/24 Creatinine 0.85 mg/dL (0.70-1.20) 10/03/24 09:49 10/03/24 Glucose 117 mg/dL (70-99) H 10/03/24 09:49 10/03/24 TSH 3.450 uIU/mL (0.300-4.200) 10/03/24 09:50 10/03/24 COAG PT 12.9 SECONDS (11.7-14.9) 05/01/16 16:39 05/01/16 Urine Test Negative Negative 02/05/22 07:29 02/05/22 Pre-Assessment Diagnosis/Proposed Procedure Planned Operative Procedure(s): HIDRADENITIS RIGHT AXILLA WITH LARGE SEBACEOUS CYST EXCISION Anesthesia History Anesthesia History - heel pricker: Anesthesia History - heel pricker Hx Hospitalization No 11/20/24 13:13 Any Problems With Anesthesia No 11/20/24 13:13 Cholinesterase deficiency No 11/20/24 13:13 You/Your Family Experience No 11/20/24 13:13 fever (hyperthermia) with Relationship Recent Exposure to Contagious No 02/05/22 07:46 Disease Does patient have nerve No 11/20/24 13:13 stimulator Patient instructed to have device shut off --Does patient have Pacemaker or ICD? When Was Last Pacemaker Check QUESTION #4 FULL TEXT: You/Your Family Experience fever (hyperthermia) with Anesthesia Last Oral Intake Last Oral intake: Last Oral Intake NPO since Meds taken in AM with sips of water? Meds patient instructed to take am of surgery PONV PONV - heel pricker: PONV - heel pricker Female Yes 11/20/24 13:13 HX of Motion Sickness No 11/20/24 13:13 HX of N/V After Surgery No 11/20/24 13:13 Non-Smoker Yes 11/20/24 13:13 Duration of Surgery greater Yes 11/20/24 13:13 than 60 minutes Number of Risk Factors 3 11/20/24 13:13 PONV Score Moderate Risk 11/20/24 13:13 Height & Weight Height & Weight: Anesthesia: Height & Weight Height 5 ft 9 in 11/18/24 16:39 Respiratory Assessment Respiratory Assessment - heel pricker: Respiratory Tract Infection Hx - heel pricker Hx Respiratory Tract Infection No 11/20/24 13:13 STOP Sleep Apnea STOP Sleep Apnea - heel pricker: STOP Sleep Apnea - heel pricker Hx Hypertension Yes: NO MEDS FOR MANY YRS 11/20/24 13:13 DUE TO PRECLAMPSIA Hx Sleep Apnea No 11/20/24 13:13 CPAP BIPAP Do you snore loudly (louder Yes 11/20/24 13:13 than talking or can be heard Do you often feel tired/ No 11/20/24 13:13 fatigued/ sleepy during daytime? Has anyone observed you stop No 11/20/24 13:13 breathing during sleep? STOP Results Positive 11/20/24 13:13 QUESTION #5 FULL TEXT : Do you snore loudly (louder than talking or can be heard through closed doors)? Tobacco Use History Tobacco Use History - heel pricker: Tobacco Use History - heel pricker Tobacco Use Smoking Status Never smoker 11/20/24 13:13 Hx Tobacco Use No 11/20/24 13:13 Years Smoking Packs Smoked per Day Smoking Cessation Date was within the last 15 years Hx Smoking Cessation Date Hx Smoking Cessation Counseling Hematologic Medial History Hematologic Hx - heel pricker: Hematologic Medical Hx - bull ladle tender Hx of Blood Transfusion No 11/20/24 13:13 Hx of Transfusion in last 3 No 11/20/24 13:13 Months Date of Last Transfusion (if within last 3 months) Ever experience any problems No 11/20/24 13:13 with transfusion(s)? Specify any problems Hx of Preganancy in last 3 No 11/20/24 13:13 Months Nurse Filling Out Transfusion DSCHRIBER 11/20/24 13:13 & Questions: Date: 11/20/24 11/20/24 13:13 Time: 13:15 11/20/24 13:13 Patient unable to answer at this time (ie. confused, unrespo /Reproduction History /Reproductive History - heel pricker: /Reproductive Hx- heel pricker Hx Now No 11/20/24 13:13 Gestational Age (in weeks): EDC: Hx Hx Para Hx Section SAB No 11/20/24 13:13 Active Medications Active Medications: Current Medications Generic Name Dose Route Start Last Admin Trade Name Freq PRN Reason Stop Dose Admin Lactated Ringer's 1,000 mls @ 15 mls/hr 11/24/24 11:15 IV .Q48H RACHELLE PFSH Medical History Diabetes History of hiatal hernia Hx of lipoma Left knee pain Antiphospholipid antibody syndrome Depression Anxiety Hx of Vic thyroiditis Arthritis Fatty liver History of IBS Gastric reflux Non-smoker History of stress test Hypertension Home Medications ?Medication ?Instructions ?Recorded ?Last Taken ?Type cholecalciferol (vitamin D3) 25 5,000 unit PO DAILY 02/01/15 Unknown History mcg (1,000 unit) tablet (Vitamin D3) spironolactone 100 mg tablet 200 mg PO QHS 02/01/15 Unknown History (Aldactone) aspirin 81 mg tablet,delayed 81 mg PO QHS 02/02/15 11/19/24 History release L.acidoph,paracasei,B.animalis 10 1 ea PO DAILY 05/21/18 Unknown History billion cell capsule ascorbic acid (vitamin C) 1,000 mg 1,000 mg PO DAILY 01/29/22 Unknown History tablet,extended release (Vitamin C ER) levonorgestrel (Mirena) 20 mcg intrauterine DAILY 01/29/22 Unknown History pantoprazole 40 mg tablet,delayed 40 mg PO QHS 01/29/22 Unknown History release azithromycin 500 mg tablet 500 mg PO Q12H 10/08/22 Unknown History dapagliflozin propanediol 5 mg 5 mg PO QAM 09/29/24 11/20/24 History tablet (Farxiga) dicyclomine 20 mg tablet 20 mg PO BID 09/29/24 Unknown History sertraline 100 mg tablet 150 mg PO QHS 09/29/24 Unknown History buspirone 7.5 mg tablet 7.5 mg PO TID 11/20/24 Unknown History Allergy/AdvReac Type Severity Reaction Status Date / Time amoxicillin Allergy Rash Verified 11/20/24 13:09 tobramycin Allergy Other Verified 11/20/24 13:09 adhesive tape AdvReac Rash Verified 11/20/24 13:09 chlorhexidine AdvReac Rash Verified 11/20/24 13:09 Surgical History Hx of colonoscopy History of esophagogastroduodenoscopy (EGD) Hx laparoscopic cholecystectomy Hx of wisdom tooth extraction Hx of arthroscopic knee surgery History of Social History Smoking Status: Never smoker alcohol intake: never Review of Systems (Anesthesia) ROS Narrative System reviewed and no additional complaints, except as documented.
[2024-11-24 11:29] LABS: Internal QC Validated? YES +Cl - CLEAR BKGD; Pregnancy, Urine Negative Negative
[2024-11-24] MEDS: Lactated Ringers 1,000 ML 15 ML IV (11:33)
--- NOTE | 2024-11-24 11:51 | HP.PCM_ITS ---
History and Physical Date of Admission: 11/24/24 Intake Vital Signs 10/08/2515:37 11/19/2515:39 Height 5 ft 9 in 5 ft 9 in Weight: 318 lb BMI 46.9 BP 140/85 H Blood Pressure Location Rt brachial Position Sitting Respiration 18 Pulse 64 Pulse Source Monitor Pulse Oximetry (%) 96 Oxygen Delivery Method room air Intake Visit Reasons: SEBACEOUS CYST R AXILLA Chief Complaint: sebaceous cyst right axilla Is patient in pain?: No Allergies amoxicillin Allergy (Verified 11/20/24 09:07) Rashtobramycin Allergy (Verified 11/20/24 09:07) Otheradhesive tape Adverse Reaction (Verified 11/20/24 09:07) Rashchlorhexidine Adverse Reaction (Verified 11/20/24 09:07) Rash Medications ?Medication ?Instructions ?Recorded ?Confirmed ?Type cholecalciferol (vitamin D3) 25 5,000 unit PO DAILY 02/01/15 11/20/24 Hi story mcg (1,000 unit) tablet (Vitamin D3) spironolactone 100 mg tablet 200 mg PO QHS 02/01/15 11/20/24 History (Aldactone) aspirin 81 mg tablet,delayed 81 mg PO QHS 02/02/15 11/20/24 History release L.acidoph,paracasei,B.animalis 10 1 ea PO DAILY 05/21/18 11/20/24 History billion cell capsule ascorbic acid (vitamin C) 1,000 mg 1,000 mg PO DAILY 01/29/22 11/20/24 Hist ory tablet,extended release (Vitamin C ER) levonorgestrel (Mirena) 20 mcg intrauterine DAILY 01/29/2211/20 History pantoprazole 40 mg tablet,delayed 40 mg PO QHS 01/29/22 11/20/24 History release zinc 50 mg capsule 50 mg PO DAILY 01/29/22 11/20/24 History azithromycin 500 mg tablet tablet PO 10/08/22 11/20/24 History dapagliflozin propanediol 5 mg 5 mg PO QAM 09/29/24 11/20/24 History tablet (Farxiga) dicyclomine 20 mg tablet 20 mg PO BID 09/29/24 11/20/24 History sertraline 100 mg tablet 150 mg PO QDAY 09/29/24 11/20/24 History buspirone 7.5 mg tablet 7.5 mg PO BID #90 tabs 11/11/24 11/20/24 Rx ciprofloxacin HCl 500 mg tablet 500 mg PO BID 4 days #8 tabs 11/20/24 Rx metronidazole 500 mg tablet 500 mg PO TID 4 days #12 tabs 11/20/24 0 11/20/24 Rx PFSH Medical History Osteoarthritis of left knee Left knee pain Antiphospholipid antibody syndrome Depression Anxiety Hx of Vic thyroiditis Arthritis Fatty liver History of IBS Gastric reflux Non-smoker History of stress test Hypertension Surgical History History of esophagogastroduodenoscopy (EGD) Hx laparoscopic cholecystectomy Hx of wisdom tooth extraction Hx of arthroscopic knee surgery History of Social History Smoking Status: Never smoker alcohol intake: never HPI HPI HPI: Patient is a 44-year-old female here for hidradenitis lesion in her right axilla. She says that has been there for 6 months. She has had folliculitis and hidradenitis in that armpit in the past. She has never had any surgery. She reports that she normally takes antibiotics and she has been on 3 different types of antibiotics over the last 6 months. ROS General General: Yes weight change; No appetite, fatigue, colon cancer, breast cancer or weakness HEENT HEENT: No difficulty swallowing, eye injury, eye surgery, swollen glands or hoarseness Endo Endocrine: Yes diabetes mellitus; No thyroid disease, thyroid cancer, Hair loss, heat intolerance or cold intolerance Skin Skin: No rash or changing moles Additional Details: cyst in axilla Musc Musculoskeletal: No back problems, arthritis, rheumatoid arthritis, gout or joint pain Cardio Cardiovascular: No murmur, pacemaker, heart disease, atrial fibrillation, high blood pressure, heart attack, heart stent, palpitations, shortness of breath with exertion or chest pain Psych Psychiatric: No depression, anxiety or hearing voices Resp Respiratory: No shortness of breath, No sleep apnea, No cough, No COPD, No asthma, No emphysema and No wheezing Gastro Gastrointestinal: No abdominal pain, No nausea or vomiting, No diarrhea, No constipation, No blood in stool, Yes acid reflux, No hemorrhoids, No ulcers, No gallbladder problem and No black,tarry stools Tr Hematologic: No blood thinners, No blood disorders, No bleeding, No anemia and No blood clots Neuro Neurologic: No system reviewed and no additional complaints, except as documented, No as per HPI, No abnormal gait, No abnormal hearing, No abnormal movements, No abnormal speech, No behavioral changes, No burning sensations, No confusion, No convulsions, No disequilibrium, No dizziness, No localized weakness, No frequent falls, No headache(s), No lack of coordination, No loss of vision, No memory loss, No numbness, No other visual disturbances, No radicular pain, No restless legs, No sensory deficit, No syncope, No tingling, No tremor(s), No weakness and No other Exam Const General: cooperative Orientation: alert and oriented x3 HENMT Head: normal to inspection Neck Neck: normal visual inspection and full ROM Chest Chest palpation & inspection: normal inspection of the chest Resp Effort & Inspection: normal respiratory effort Auscultation: clear to auscultation bilaterally Cardio Rate: regular rate Rhythm: regular rhythm GI Inspection: non-distended Palpation: soft and nontender Skin General: no rashes or lesions noted Lesions: no lesions (Skin lesion in the right axilla with purulent drainage) Neuro General: patient alert and patient oriented x3 Extrem General: full ROM Psych Appearance: grossly normal Mental Status: mental status grossly normal Assessment and Plan Assessment and Plan (1) Sebaceous cyst of axilla: Status: Acute Plan: The patient has hidradenitis of the right axilla with a large sebaceous cyst. It measures approximately 1-1/2 cm to 2 cm. It does have purulent drainage when it is palpated. I will start her on antibiotics over the weekend and I will take her for surgery on Saturday to excise it. I discussed the risks including but not limited to bleeding, infection, injury to underlying organs. Patient understands the risks and is willing to proceed. Wilfrido Hogue MD Pager: [facility] [address] [place] [address], [address] [place] [address] Office: I have examined the patient and the H&P has been reviewed. There are no clinical changes since date of exam.
[2024-11-24 11:55] LABS: Bedside Glucose 123 mg/dL (74-106)
[2024-11-24] MEDS: Lidocaine 1%/Epi 1:200 (30ml) 30 ML AMPUL (12:25)
--- NOTE | 2024-11-24 12:30 | CYST_PTH ---
PATIENT: ILA CA LOC: [facility] U#:[id number] AGE/SX: 44/F ROOM: RE11/24/[address]: Dr. Wilfrido Hogue MD : 1980 BED: DIS: 11/24/2024 SPEC #: [id number] RECD: 11/24/24 18:16 STATUS: IJEOMA REAlan #: [id number] KETURAH: 11/24/24 12:[address]: Wilfrido Hogue DEPT: SURGICAL PATHOLOGY RECD BY: Rafael Zhou ENTERED: 11/25/24 08:45 SP TYPE: Cyst OTHR DR: Dr. Rosalva Styles MD Tissues: A - CYST Procedures: Surgery Specimen Level III HEADER OPERATION: Right axilla sebaceous cyst excision PRE-OP DIAGNOSIS: Sebaceous cyst of axilla TISSUE SUBMITTED: A- Right axilla sebaceous cyst MICROSCOPIC DIAGNOSIS A. Right axilla, sebaceous cyst, excision: * Skin and subcutis with acute folliculitis and foreign body inflammation consistent with ruptured follicle. MICROSCOPIC DESCRIPTION Slides are reviewed. GROSS DESCRIPTION A. Received in formalin in a container labeled with the patient's name, date of , and RT axilla sebaceous cyst are 3 montalvo-yellow, unoriented, and irregular fragments of cauterized adipose tissue ranging from 1.1 x 1.0 x 0.6 cm to 2.3 x 1.3 x 0.9 cm. The largest fragment is partially surfaced by a montalvo-kay, wrinkled portion of skin measuring 1.7 x 0.6 cm. Serial sections reveal montalvo-yellow, homogenous surfaces. The mid-sized fragment exhibits pale montalvo-yellow induration of possible fat necrosis. No distinct cyst is grossly recognized. The specimen is submitted entirely as follows:A1. Mid-sized portion with possible fat necrosisA2-3. Remainder of specimen [facility] 11-25-2024 CPT:06641
--- NOTE | 2024-11-24 12:37 | PCM.OPRPT ---
Operative Report (Standard) Operative Information Date of Procedure: 11/24/24 Pre-Operative Diagnosis: Right axillary sebaceous cyst Post-Operative Diagnosis: Right axillary sebaceous cyst Surgery/Procedure Performed: Right axillary excision of sebaceous cyst with closure environmental science program director: No Type of Anesthesia: Local MAC RN Documented Start/Stop Times: Operation Date: 11/24/24 12:30 Case Time Into Pre-Op 11/24/24 11:04 Out of Pre-Op 11/24/24 12:09 Anesthesia Start 11/24/24 12:14 Into Room 11/24/24 12:14 Procedure Start 11/24/24 12:26 Procedure End 11/24/24 12:34 Procedure Start Time: : Procedure Stop Time: : Select all DRAINS/GRAFTS/IMPLANTS that apply: None Estimated Blood Loss: 2 Specimen collected: Yes Description of specimen(s) removed: Sebaceous cyst with skin Description of surgery: Patient was brought back to the operating room and MAC anesthesia was induced. The right axilla was prepped and draped in usual sterile fashion. An elliptical incision was marked and then injected with local anesthetic. Elliptical incision was made with a scalpel and the skin was excised. The underlying tissue was also removed and there was no firm tissue left. The cavity was irrigated and suctioned dry. There was good hemostasis. The cavity was closed with interrupted 3-0 Vicryl sutures and then Dermabond glue. Patient was awoken and taken to PACU in stable condition and tolerated the procedure well. The specimen was approximately 2 cm in length Surgical Findings: Inflamed sebaceous cyst in the right axilla Complications Complications: No
--- NOTE | 2024-11-24 12:39 | EX.PCM.DISCH ---
Discharge Instructions Procedure General Surgery Diet Discharge Diet: Light diet - advance as tolerated Activity Discharge Activity: May Not Drive (No driving for 1 week or while taking narcotic pain meds.) and May Shower Dressing / Incision Call your doctor if your incision/area has: Continuous Slow Oozing, Sudden Increased Bleeding, Increased Pain/ Swelling, Increased Redness, Foul Smelling Discharge and Swelling at the incision site Call your doctor if you observe: Fever of 101 or Higher Suture Line Care: Avoid Pulling/Pushing and Avoid Pinching/Bending Cleanse incision/area with: Soap & Water Additional Dressing/Incision Instructions:: Alternate ibuprofen and Tylenol for pain. Oxycodone for breakthrough pain. Follow Up Care Please Follow Up With: Wilfrido Hogue MD When: Please call to schedule 2 week follow up appointment. [phone] Test Results: Test results from this visit will be discussed in further detail at your follow-up appointment, if applicable. Discharge Plan Admission Attending Provider: Wilfrido Hogue Primary Care Provider: Rosalva Styles Instructions Print Language: Estonian Discharge Orders/Prescriptions Prescriptions: New oxycodone 5 mg tablet 5 mg PO Q6H PRN (Reason: pain) 5 Days Qty: 5 0RF No Action azithromycin 500 mg tablet 500 mg PO Q12H sertraline 100 mg tablet 150 mg PO QHS dicyclomine 20 mg tablet 20 mg PO BID dapagliflozin propanediol [Farxiga] 5 mg tablet 5 mg PO QAM spironolactone [Aldactone] 100 MG tablet 200 mg PO QHS cholecalciferol (vitamin D3) [Vitamin D3] 1,000 UNIT tablet 5,000 unit PO DAILY aspirin 81 MG tablet 81 mg PO QHS L.acidoph,paracasei,B.animalis 1 EACH capsule 1 ea PO DAILY Mirena 20 mcg/24 hours (7 yrs) 52 mg Intrauterine Device 20 mcg INTRAUTERINE DAILY Vitamin C 1,000 mg Tablet Extended Release 1,000 mg PO DAILY pantoprazole 40 mg Tablet,Delayed Release (Dr/Ec) 40 mg PO QHS buspirone 7.5 mg tablet 7.5 mg PO TID Referrals / Follow Up: Rosalva Styles MD [Primary Care Provider] - Disposition Disposition (needs filled in before D/C Order can be placed): Home, Self Care
--- NOTE | 2024-11-24 12:46 | PCM.POST.ANE ---
Anesthesia: Postop Eval I Current Vital Signs Temperature: 97 F Pulse Rate: 75 Blood Pressure: 155/90 Respiratory Rate: 14 Pulse Ox: 92 Oxygen Delivery Method: Room Air Assessment Airway patent: Yes Spontaneous unlabored respirations: Yes Mental status: Awake nausea: No Vomiting: No Anesthesia Complication: No Fluid Hydration Crystalloid volume administer (ml): 500 Total IV fluid infused: 500 Progress Note Anesthesia document: Postop Eval 1 completed: Yes
--- NOTE | 2024-11-24 13:00 | POSTOPAN2_ITS ---
Anesthesia Postop Eval I Sum Postop Eval Completion status Anesthesia document: Postop Eval 1 completed: Yes Anesthesia Postop Eval I Summary Anesthesia Postop Eval I Summary: Anesthesia Postop Eval I: Assessment Summary Airway patent Yes 11/24/24 12:47 FILLER ROOM ATTENDANT.HBARR Spontaneous unlabored Yes 11/24/24 12:47 FILLER ROOM ATTENDANT.HBARR respirations Mental status Awake 11/24/24 12:47 FILLER ROOM ATTENDANT.HBARR nausea No 11/24/24 12:47 FILLER ROOM ATTENDANT.HBARR Vomiting No 11/24/24 12:47 FILLER ROOM ATTENDANT.HBARR Anesthesia Postop Eval I: Fluid Summary Crystalloid volume administer 500 11/24/24 12:47 FILLER ROOM ATTENDANT.HBARR (ml) Colloids volume administered ( ml) Blood Product volume administered (ml) Total IV fluid infused 500 11/24/24 12:47 FILLER ROOM ATTENDANT.HBARR Anesthesia Postop Eval I: Summary Notes Anesthesia Complication No 11/24/24 12:47 FILLER ROOM ATTENDANT.HBARR Anesthesia Complication Comment: Post-operative progress note Anesthesia: Postop Eval II Evaluation Mental status: Awake Pain Level: 0 nausea: No Vomiting: No
--- NOTE | 2024-11-24 13:00 | PCM.POSTANE2 ---
Anesthesia Postop Eval I Sum Postop Eval Completion status Anesthesia document: Postop Eval 1 completed: Yes Anesthesia Postop Eval I Summary Anesthesia Postop Eval I Summary: Anesthesia Postop Eval I: Assessment Summary Airway patent Yes 11/24/24 12:47 HEAT TREATMENT TECHNICIAN.HBARR Spontaneous unlabored Yes 11/24/24 12:47 HEAT TREATMENT TECHNICIAN.HBARR respirations Mental status Awake 11/24/24 12:47 HEAT TREATMENT TECHNICIAN.HBARR nausea No 11/24/24 12:47 HEAT TREATMENT TECHNICIAN.HBARR Vomiting No 11/24/24 12:47 HEAT TREATMENT TECHNICIAN.HBARR Anesthesia Postop Eval I: Fluid Summary Crystalloid volume administer 500 11/24/24 12:47 HEAT TREATMENT TECHNICIAN.HBARR (ml) Colloids volume administered ( ml) Blood Product volume administered (ml) Total IV fluid infused 500 11/24/24 12:47 HEAT TREATMENT TECHNICIAN.HBARR Anesthesia Postop Eval I: Summary Notes Anesthesia Complication No 11/24/24 12:47 HEAT TREATMENT TECHNICIAN.HBARR Anesthesia Complication Comment: Post-operative progress note Anesthesia: Postop Eval II Evaluation Mental status: Awake Pain Level: 0 nausea: No Vomiting: No
== END 2024-11-24 14:32 | disposition home or self-care (01) ==
LOC: SDC 11:03 → AC 11:04
PROVIDERS: Anesthesiology; PCP Internal Medicine; Referring Provider Surgery; Visit Provider Surgery
PROC: (CPT 24075; principal; 2024-11-24 12:20)
DX: L02.421 Furuncle of right axilla (principal); E11.9 Type 2 diabetes mellitus without complications; K21.9 Gastro-esophageal reflux disease without esophagitis; I10 Essential (primary) hypertension; Z79.899 Other long term (current) drug therapy; Z79.82 Long term (current) use of aspirin; Z79.890 Hormone replacement therapy
CPT/HCPCS: 24075; 00400; 81025; 82962; 88304; J2405

== ENCOUNTER → 2024-12-03 | Outpatient (CLI) | payer OTHER, SELFPAY | END | disposition home or self-care (01) | LOC: LABSPEC 11:01 | PROVIDERS: PCP Internal Medicine; Referring Provider Surgery; Visit Provider Surgery | DX: L72.3 Sebaceous cyst (principal) | CPT/HCPCS: 87070; 87075; 87077; 87186; 87205 ==

== ENCOUNTER 2024-12-21 10:35 | Outpatient (RCR) | payer OTHER, SELFPAY | END 2025-01-04 23:59 | LOC: NS 10:35 | PROVIDERS: PCP Internal Medicine; Referring Provider Internal Medicine; Visit Provider Internal Medicine | DX: Z71.3 Dietary counseling and surveillance (principal); E11.29 Type 2 diabetes mellitus with other diabetic kidney complication; E11.43 Type 2 diabetes mellitus with diabetic autonomic (poly)neuropathy; K31.84 Gastroparesis; F42.9 Obsessive-compulsive disorder, unspecified | CPT/HCPCS: 97803 ==

== ENCOUNTER 2025-02-16 09:05 | Outpatient (RCR) | payer OTHER, SELFPAY | END 2025-03-07 23:59 | LOC: NS 09:05 | PROVIDERS: PCP Internal Medicine; Referring Provider Internal Medicine; Visit Provider Internal Medicine | DX: Z71.3 Dietary counseling and surveillance (principal); E11.29 Type 2 diabetes mellitus with other diabetic kidney complication; E11.43 Type 2 diabetes mellitus with diabetic autonomic (poly)neuropathy; K31.84 Gastroparesis; F42.9 Obsessive-compulsive disorder, unspecified | CPT/HCPCS: 97803 ==

== ENCOUNTER 2025-04-28 15:59 | Outpatient (RCR) | payer OTHER, SELFPAY | END 2025-05-07 23:59 | LOC: NS 15:59 | PROVIDERS: PCP Internal Medicine; Referring Provider Internal Medicine; Visit Provider Internal Medicine | DX: Z71.3 Dietary counseling and surveillance (principal); E11.29 Type 2 diabetes mellitus with other diabetic kidney complication; E11.43 Type 2 diabetes mellitus with diabetic autonomic (poly)neuropathy; K31.84 Gastroparesis; K58.9 Irritable bowel syndrome, unspecified; F42.9 Obsessive-compulsive disorder, unspecified | CPT/HCPCS: 97803 ==

== ENCOUNTER 2025-07-05 15:06 | Outpatient (RCR) | payer OTHER, SELFPAY | END 2025-07-07 23:59 | LOC: NS 15:06 | PROVIDERS: PCP Internal Medicine; Referring Provider Internal Medicine; Visit Provider Internal Medicine | DX: Z71.3 Dietary counseling and surveillance (principal); E11.29 Type 2 diabetes mellitus with other diabetic kidney complication; E11.43 Type 2 diabetes mellitus with diabetic autonomic (poly)neuropathy; K31.84 Gastroparesis; F42.9 Obsessive-compulsive disorder, unspecified | CPT/HCPCS: 97803 ==